=== PATIENT | female | born 1960 | race Caucasian/White ===

== ENCOUNTER 2016-08-15 09:46 | Day surgery (SDC) | payer OTHER ==
[~2016-08-15] VITALS: Ht 165.1 cm; Wt 50.9 kg
[2016-08-15] VITALS (8 sets, daily range): BP systolic 129–180; BP diastolic 63–96
[~2016-08-15 09:46] MED LIST: ACLI400A IH; AGM875T PO; AMOX-358 PO; ASP81CT; ASPI-983 PO; BSP5T PO; BUSP5TAB59 PO; DEXL60CA PO; ENLP2.5T; EST.625T; FLUT12AE4 IH; GABA-486 PO; GBPN100C PO; HYDR-3454 PO; HYDR-3812 PO; HYDR-3857 PO; IBP200T; INSASP10V; INSASP10V SQ; INSU100C4; INSU100C4 SQ; INSU100I29 SQ; INSU100V16 SQ; INSU100V5 SQ; INSU100V8; LEVO175T3 PO; LEVO175T5 PO; LEVO750T6 PO; LEVOTHYROXINE 0.15MG; LEVOTHYROXINE 175 MCG PO; METO-270 PO; METO5TAB79 PO; MUPI22OI2 TP; NITR100C3 PO; ONDA-42 PO; PARO20TA57 PO; PARO40TA3 PO; POTASSIUM 99MG; RT-ADVAIR1 IH; RT-ALBUINH IH; SCR1T PO; SENNA 8.6 MG; VENL50TA; VNL75CCR
--- OUTSIDE RECORDS SUMMARY | 2016-08-15 09:50 | XMS REPORT | Continuity of Care Document ---
Author Author [facility] Organization [facility] Address Unknown Phone Unavailable Care Team Providers Care Electrical Inspector Name Role Phone PILLO FRANCOIS MD PCP Insurance Providers Payer Name Policy Number Subscriber Name Relationship [employer] [facility] [id number] Luz MarinahungTiffany Seth 18 Self / Same As Patient Advance Directives Directive Response Recorded Date/Time Advance Directives No 05/02/14 11:15pm Health Care Power of Behavioral Psychologist No 05/02/14 11:15pm Organ Donor Yes 05/02/14 11:15pm Resuscitation Status Full Code 05/02/14 11:15pm Chief Complaint and Reason for Visit Chief Complaint ABSCESS TO L BUTTOCKS WITH FEVR;LEUKOCYTOSIS Reason for Visit Abscess Problems Medical Problems Problem Onset Date Status Cough Unknown Active Abscess Unknown Active Medications Medication Dose Route Sig Days/Qty Instructions Order Date Discontinued Date Status Insulin Glargine 07/10/07 07/19/09 Discontinued Insulin Human Lispro 07/10/07 03/21/12 Discontinued Insulin Human Lispro 07/10/07 03/21/12 Discontinued Insulin Human Lispro 07/10/07 03/21/12 Discontinued Estrogens Conjugated 07/10/07 01/01/14 Discontinued Venlafaxine HCl 07/10/07 07/19/09 Discontinued [Levothyroxine 0.15MG] 07/10/07 03/21/12 Discontinued Enalapril Maleate 07/10/07 01/01/14 Discontinued Aspirin 07/10/07 01/01/14 Discontinued [Potassium 99MG] 07/10/07 01/01/14 Discontinued Ibuprofen 07/10/07 07/19/09 Discontinued Insulin Glargine 07/19/09 03/21/12 Discontinued Venlafaxine HCl 07/19/09 01/01/14 Discontinued Nitrofurantoin Macrocrystals 100 Mg PO TWICE A DAY 5 Days 02/20/1220/06 Discontinued [Levothroxin 175 Mcg] PO DAILY 03/21/12 05/02/14 Discontinued Hydrocodone Bit/Acetaminophen 1 Each PO NEEDED 03/21/12 01/01/14 Discontinued Insulin Human Lispro 10 Units SQ THREE TIMES A DAY BEFORE MEALS ADDITIONAL SLIDING SCALE IF NEEDED 03/21/12 Active Insulin Glargine 20 Units SQ TWICE A DAY 03/21/12 Active [Senna 8.6MG 2 ] 03/21/12 01/01/14 Discontinued Sucralfate 2 Tsp PO FOUR TIMES DAILY 03/22/12 01/01/14 Discontinued Metoclopramide HCl 1 Each PO QID PRN 03/22/12 01/01/14 Discontinued Dexlansoprazole 60 Mg PO 03/22/12 01/01/14 Discontinued Paroxetine Hcl 20 Mg PO DAILY 01/01/14 Active Buspirone HCl 5 Mg PO TWICE A DAY 90 Qty 01/01/14 Active Fluticasone/Salmeterol 2 Puff IH BID@08,20 1 Qty 01/03/14 Active Gabapentin 100 Mg PO BEDTIME 30 Qty 01/03/14 Active Levothyroxine Sodium 175 Mcg PO DAILY 05/02/14 Active Aclidinium [place] 400 Mcg IH TWICE A DAY 05/02/14 Active Albuterol Sulfate 1 Puff IH NEEDED PRN SHORTNESS OF BREATH Active Levofloxacin Unknown Dose PO 05/02/14 05/04/14 Discontinued Mupirocin 22 Gm TP 05/02/14 Active Ondansetron Hcl 4 Mg PO EVERY 4HRS PRN 05/02/14 Active Amoxicillin/Clavulanate K 1 Tab PO TWICE A DAY 28 Qty 05/04/14 Active Social History Social History Problem Response Recorded Date/Time Alcohol Use Denies Use 05/02/2014 11:15pm Recreational Drug Use No 05/02/2014 11:15pm Recent Foreign Travel No 12/31/2013 11:34pm Recent Infectious Disease Exposure No 12/31/2013 11:34pm Hospitalization with Isolation Denies 01/15/2014 10:46am Sexually Transmitted Disease No 05/02/2014 11:15pm HIV/AIDS No 05/02/2014 11:15pm Smoking Status Current Everyday Smoker 05/02/2014 11:15pm Do you dip or chew tobacco? No 05/02/2014 11:15pm Query Response Start Date Stop Date Smoking Status Current Everyday Smoker Hospital Discharge Instructions No hospital discharge instructions. Plan of Care Discharge Date 05/04/14 11:35am Disposition 01 HOME, SELF-CARE Instructions/Education Provided ABSCESS Forms Provided PDI Medical Prescriptions See Medications Section Referrals PILLO FRANCOIS MD (Unspecified) 05/11/14 Address: [address], [place] [id number] ILA DAVALOS MD (Unspecified) 05/11/14 Address: [address] [place] [id number] Functional Status Query Response Date Recorded Patient Orientation Person Place Time Situation Eyes Open May 04, 2014 12:25pm Comprehension Ability Understands Concepts May 03, 2014 8:00pm Allergies, Adverse Reactions, Alerts Allergen Type Severity Reaction Status Last Updated No Known Drug Allergies Active 07/10/07 Immunizations Name Given Type Date of Pneumonia Vaccine 04/02/09 Historical Date of Influenza Vaccine 04/07/14 Historical Hepatitis A No Historical Hepatitis B No Historical Tetanus Booster (TDap) Unknown Historical Vital Signs Acute Vital Signs Vital Response Date/Time Temperature (Fahrenheit) 97.1 degrees F (97.6 - 99.5) Temperature (Calculated Celsius) 36.80598 degrees C (36.4 - 37.5) Temperature Source Tympanic Pulse Rate (adult) 104 bpm (60 - 90) Respiratory Rate 22 bpm (12 - 24) O2 Sat by Pulse Oximetry 98 % (88 - 100) Blood Pressure 104/57 mm Hg Pain Pain Intensity 5 Height (Feet) 5 feet Height (Inches) 5.00 inches Height (Calculated Centimeters) 165.906173 cm Weight (Pounds) 114 pounds Weight (Ounces) 2.0 oz Weight (Calculated Grams) 77834.230 gm Weight (Calculated Kilograms) 51.325194 kilograms Calculated BMI 18.97 Results Test Source Date Result Interp. Ref. Range Comments Activated Partial Thromboplast Time December 31, 2013 7:34pm 22 SEC L 24-35 Alanine Aminotransferase (ALT/SGPT) January 01, 2014 6:04am 24 U/L L 30-65 Albumin January 01, 2014 6:04am 3.0 G/DL L 3.4-5.0 Alkaline Phosphatase January 01, 2014 6:04am 146 U/L H 50-136 Scar Test December 31, 2013 9:25pm YES-POS - Has specimen been collected /obtained? YPuncture site: Rrad Scar's Test: POSITIVE Temperature: 98.6 Room Air: Y Liters of O2: 0 Arterial Blood Base Excess December 31, 2013 9:25pm -19.1 MMOL/L L -2.5-2.5 Has specimen been collected/obtained? YPuncture site: Rrad Scar's Test: POSITIVE Temperature: 98.6 Room Air: Y Liters of O2: 0 Arterial Blood HCO3 December 31, 2013 9:25pm 7 MMOL/L PL 23-27 RESULTS CALLED TO MUNIRA AT 2138. RESULTS READ BACK: YES[g LABRB]. Arterial Blood Oxygen Saturation December 31, 2013 9:25pm 98 % N 94-100 Has specimen been collected/obtained? YPuncture site: Rrad Scar's Test: POSITIVE Temperature: 98.6 Room Air: Y Liters of O2: 0 Arterial Blood Partial Pressure CO2 December 31, 2013 9:25pm 19 MMHG L 35- 45 Has specimen been collected/obtained? YPuncture site: Rrad Scar's Test: POSITIVE Temperature: 98.6 Room Air: Y Liters of O2: 0 Arterial Blood Partial Pressure O2 December 31, 2013 9:25pm 112 MMHG H 79- 93 Has specimen been collected/obtained? YPuncture site: Rrad Scar's Test: POSITIVE Temperature: 98.6 Room Air: Y Liters of O2: 0 Arterial Blood Total CO2 December 31, 2013 9:25pm 7.7 MMOL/L PL 21.0-31.0 RESULTS CALLED TO MUNIRA AT 2138. RESULTS READ BACK: YES[g LABRB]. Arterial Blood pH December 31, 2013 9:25pm 7.18 L 7.37-7.43 Has specimen been collected/obtained? YPuncture site: Rrad Scar's Test: POSITIVE Temperature: 98.6 Room Air: Y Liters of O2: 0 Aspartate Amino Transf (AST/SGOT) January 01, 2014 6:04am 12 U/L L 15-37 BUN/Creatinine Ratio January 02, 2014 5:55am 13 - Band Neutrophils December 31, 2013 7:34pm 0 % - Basophils # (Auto) January 02, 2014 6:32am 0.1 10^3/uL N 0.0-0.1 Basophils % (Manual) December 31, 2013 7:34pm 1 % - Basophils (%) (Auto) January 02, 2014 6:32am 1 % N 0-10 Blood Gas Inspired Oxygen December 31, 2013 9:25pm RA - Has specimen been collected/obtained? YPuncture site: Rrad Scar's Test: POSITIVE Temperature: 98.6 Room Air: Y Liters of O2: 0 Blood Gas Patient Temperature December 31, 2013 9:25pm 98.6 - Has specimen been collected/obtained? YPuncture site: Rrad Scar's Test: POSITIVE Temperature: 98.6 Room Air: Y Liters of O2: 0 Blood Gas Puncture Site December 31, 2013 9:25pm R RAD - Has specimen been collected/obtained? YPuncture site: Rrad Scar's Test: POSITIVE Temperature: 98.6 Room Air: Y Liters of O2: 0 Blood Gas Ventilator Setting December 31, 2013 9:25pm NO - Has specimen been collected/obtained? YPuncture site: Rrad Scar's Test: POSITIVE Temperature: 98.6 Room Air: Y Liters of O2: 0 Blood Urea Nitrogen January 02, 2014 5:55am 9 MG/DL N 7-18 C-Peptide January 01, 2014 11:30am <0.05 NG/ML L - Calcium Level January 02, 2014 5:55am 8.3 MG/DL L 8.5-10.1 Carbon Dioxide Level January 02, 2014 5:55am 25 MMOL/L N 21-32 Chloride Level January 02, 2014 5:55am 107 MMOL/L N 101-110 Creatine Kinase MB December 31, 2013 7:34pm 1.2 NG/ML N 0.0-3.6 Creatinine January 02, 2014 5:55am 0.7 MG/DL N 0.6-1.3 Eosinophils # (Auto) January 02, 2014 6:32am 0.3 10^3/uL N 0.0-0.3 Eosinophils % (Manual) December 31, 2013 7:34pm 2 % - Eosinophils (%) (Auto) January 02, 2014 6:32am 3 % N 0-10 Glucose Level January 02, 2014 5:55am 47 MG/DL PL 74-106 RESULTS CALLED TO UKRAINIAN AT 0620. RESULTS READ BACK:YES. Hematocrit January 02, 2014 6:32am 39 % N 35-52 Hemoglobin January 02, 2014 6:32am 13.4 G/DL N 11.5-16.0 Lipase July 19, 2009 6:20pm 222 U/L N 114-286 Lymphocytes # (Auto) January 02, 2014 6:32am 2.5 X 10^3 N 1.0-4.0 Lymphocytes % (Manual) December 31, 2013 7:34pm 13 % - Lymphocytes (%) (Auto) January 02, 2014 6:32am 30 % N 12-44 Magnesium Level January 02, 2014 5:55am 1.9 MG/DL N 1.8-2.4 Mean Corpuscular Hemoglobin January 02, 2014 6:32am 30 PG N 25-34 Mean Corpuscular Hemoglobin Concent January 02, 2014 6:32am 34 G/DL N 32- 36 Mean Corpuscular Volume January 02, 2014 6:32am 87 FL N 80-99 Mean Platelet Volume January 02, 2014 6:32am 8.9 FL N 7.4-10.4 Monocytes # (Auto) January 02, 2014 6:32am 0.6 X 10^3 N 0.0-1.0 Monocytes % (Manual) December 31, 2013 7:34pm 2 % - Monocytes (%) (Auto) January 02, 2014 6:32am 7 % N 0-12 Neutrophils # (Auto) January 02, 2014 6:32am 5.0 X 10^3 N 1.8-7.8 Neutrophils % (Manual) December 31, 2013 7:34pm 80 % - Neutrophils (%) (Auto) January 02, 2014 6:32am 59 % N 42-75 Phosphorus Level January 01, 2014 6:04am 2.2 MG/DL L 2.5-4.9 Platelet Count January 02, 2014 6:32am 317 10^3/uL N 130-400 Potassium Level January 02, 2014 5:55am 3.8 MMOL/L N 3.6-5.0 Prothrombin Time December 31, 2013 7:34pm 12.0 SEC L 12.2-14.7 Reactive Lymphocytes December 31, 2013 7:34pm 2 % - Red Blood Count January 02, 2014 6:32am 4.48 10^6/uL N 4.35-5.85 Red Cell Distribution Width January 02, 2014 6:32am 13.5 % N 10.0-14.5 Sodium Level January 02, 2014 5:55am 141 MMOL/L N 135-145 TSH Miner Testing December 31, 2013 7:34pm 1.46 UIU/ML N 0.34-5.60 Thyroid Stimulating Hormone (TSH) July 19, 2009 6:20pm 18.94 UIU/ML H 0.34-5.60 Total Bilirubin January 01, 2014 6:04am 0.4 MG/DL N 0.0-1.0 Total Creatine Kinase December 31, 2013 7:34pm 36 U/L N 1-159 Total Protein January 01, 2014 6:04am 6.4 G/DL N 6.4-8.2 Troponin I December 31, 2013 7:34pm < 0.30 NG/ML - TEST PERFORMED ON THE [employer] DOCK GUARD [id number]. NORMAL RANGEIS <0.3 NG/ML. THESE RANGES AND METHODOLOGY WERE APPROVED BY DR. ASCENCIO ON 12/24/2013. Ur Tricyclic Antidepressants Screen February 20, 2012 4:09am NEGATIVE - Urine Acetone Level January 01, 2014 11:10am 20 (SMALL) MG/DL - Urine Amphetamines Screen February 20, 2012 4:09am NEGATIVE - Urine Bacteria January 01, 2014 3:20pm TRACE /HPF - Has specimen been collected/obtained? Y Urine Barbiturates Screen February 20, 2012 4:09am NEGATIVE - Urine Benzodiazepines Screen February 20, 2012 4:09am NEGATIVE - Urine Bilirubin January 01, 2014 3:20pm NEGATIVE - Has specimen been collected/obtained? Y Urine Casts January 01, 2014 3:20pm NONE /LPF - Has specimen been collected/obtained? Y Urine Clarity January 01, 2014 3:20pm CLEAR - Has specimen been collected/obtained? Y Urine Cocaine Screen February 20, 2012 4:09am NEGATIVE - Urine Color January 01, 2014 3:20pm YELLOW - Has specimen been collected /obtained? Y Urine Crystals January 01, 2014 3:20pm NONE /LPF - Has specimen been collected/obtained? Y Urine Culture Indicated January 01, 2014 3:20pm NO - Has specimen been collected/obtained? Y Urine Glucose (UA) January 01, 2014 3:20pm NEGATIVE - Has specimen been collected/obtained? Y Urine Ketones January 01, 2014 3:20pm NEGATIVE - Has specimen been collected/obtained? Y Urine Leukocyte Esterase January 01, 2014 3:20pm NEGATIVE - Has specimen been collected/obtained? Y Urine Methamphetamines Screen February 20, 2012 4:09am NEGATIVE - Urine Mucus January 01, 2014 3:20pm NEGATIVE /LPF - Has specimen been collected/obtained? Y Urine Nitrite January 01, 2014 3:20pm NEGATIVE - Has specimen been collected/obtained? Y Urine Opiates Screen February 20, 2012 4:09am NEGATIVE - Urine Phencyclidine Screen February 20, 2012 4:09am NEGATIVE - Urine Propoxyphene Screen February 20, 2012 4:09am NEGATIVE - Urine Protein January 01, 2014 3:20pm 1+ H - Has specimen been collected/ obtained? Y Urine RBC January 01, 2014 3:20pm NONE /HPF - Has specimen been collected/obtained? Y Urine Specific [place] January 01, 2014 3:20pm 1.005 L - Has specimen been collected/obtained? Y Urine Squamous Epithelial Cells January 01, 2014 3:20pm 5-10 /HPF - Has specimen been collected/obtained? Y Urine Urobilinogen January 01, 2014 3:20pm NORMAL MG/DL - Has specimen been collected/obtained? Y Urine WBC January 01, 2014 3:20pm RARE /HPF - Has specimen been collected/obtained? Y Urine pH January 01, 2014 3:20pm 6.5 - Has specimen been collected/ obtained? Y White Blood Count January 02, 2014 6:32am 8.6 10^3/uL N 4.3-11.0 Glucometer January 03, 2014 11:33am 194 MG/DL H 70-110 Lab Scanned Report January 30, 2012 11:33am LAB Reports [id number] - Estimat Glomerular Filtration Rate January 02, 2014 5:55am > 60 - GFR INTERPRETIVE DATA UNITS FOR ESTIMATED GFR (eGFR): mL/min/1.73 M2 REFERENCE RANGE FOR ESTIMATED GFR (eGFR) eGFR NORMAL eGFR >60 MODERATELY DECREASED eGFR 30-59 SEVERLY DECREASED eGFR 15-29 KIDNEY FAILURE <15 (OR DIALYSIS) Urine Oxycodone Screen February 20, 2012 4:09am NEGATIVE - Blood Morphology Comment December 31, 2013 7:34pm NORMAL - Urine Methadone Screen February 20, 2012 4:09am NEGATIVE - Urine Cannabinoids Screen February 20, 2012 4:09am NEGATIVE - Urine Buprenorphine February 20, 2012 4:09am NEGATIVE - Urine RBC (Auto) January 01, 2014 3:20pm NEGATIVE - Has specimen been collected/obtained? Y INR Comment December 31, 2013 7:34pm 0.9 N 0.8-1.4 INTERPRETIVE DATASUGGESTED THERAPEUTIC RANGE FOR INR'S: VENOUS THROMBOSIS, PULMONARY EMBOLISM, OR PREVENTION OF SYSTEMIC EMBOLISM (EG. IN ATRIAL FIBRILLATION): 2.0 - 3.0 MECHANICAL PROSTHETIC HEART VALVES: 2.5 - 3.5* *NOTE: INR'S UP TO 4.5 MAY BE NECESSARY IN SELECTED GROUPS OF HIGH RISK PATIENTS. [employer] [place] [employer] CONSENSUS CONFERENCE ON ANTITHROMBOTIC THERAPY (2000). MRSA Screen Nasal December 31, 2013 11:00pm MRSA not isolated Urine Culture Urine-Clean Catch February 20, 2012 4:09am Escherichia Coli Procedures Procedure Status Date Provider(s) Incision and drainage completed 05/03/14 ILA DAVALOS MD Encounters Encounter Location Date/Time Discharged Inpatient Via [facility] 05/02/14 9:25pm Recent Diagnosis Abscess
--- OUTSIDE RECORDS SUMMARY | 2016-08-15 09:50 | XMS REPORT | Continuity of Care Document ---
Author Author [facility] Organization [facility] Address Unknown Phone Unavailable Care Team Providers Care Floral Design Teacher Name Role Phone PILLO FRANCOIS MD PCP Insurance Providers Payer Name Policy Number Subscriber Name Relationship [employer] [facility] [id number] Luz MarinahungTiffany Seth 18 Self / Same As Patient Advance Directives Directive Response Recorded Date/Time Advance Directives No 05/02/14 11:15pm Health Care Power of News Cameraman No 05/02/14 11:15pm Organ Donor Yes 05/02/14 [...] 175 Mcg PO DAILY 05/02/14 Active Aclidinium [place] 400 Mcg IH TWICE A DAY 05/02/14 [...] PILLO FRANCOIS MD (Unspecified) 05/11/14 Address: [address], [place] [id number] ILA DAVALOS MD (Unspecified) 05/11/14 Address: [address] [place] [address] [id number] Functional Status Query Response Date Recorded Patient [...] F (97.6 - 99.5) Temperature (Calculated Celsius) 36.33188 degrees C (36.4 - 37.5) Temperature Source Tympanic Pulse Rate (adult) 104 bpm (60 - 90) Respiratory Rate 22 bpm (12 - 24) O2 Sat by Pulse Oximetry 98 % (88 - 100) Blood Pressure 104/57 mm Hg Pain Pain Intensity 5 Height (Feet) 5 feet Height (Inches) 5.00 inches Height (Calculated Centimeters) 165.069513 cm Weight (Pounds) 114 pounds Weight (Ounces) 2.0 oz Weight (Calculated Grams) 49630.230 gm Weight (Calculated Kilograms) 51.700997 kilograms Calculated BMI 18.97 Results Test Source [...] 47 MG/DL PL 74-106 RESULTS CALLED TO UPPER SORBIAN AT 0620. RESULTS READ BACK:YES. Hematocrit January [...] 2014 5:55am 141 MMOL/L N 135-145 TSH [place] Testing December 31, 2013 7:34pm 1.46 UIU/ML [...] NG/ML - TEST PERFORMED ON THE [employer]EL[employer] DRAWING CHECKER [id number]. NORMAL RANGEIS <0.3 NG/ML. THESE RANGES AND [...] Has specimen been collected/obtained? Y Urine Specific [place] January 01, 2014 3:20pm 1.005 L - [...] Report January 30, 2012 11:33am LAB Reports [id number] - Estimat Glomerular Filtration Rate January 02, [...] SELECTED GROUPS OF HIGH RISK PATIENTS. [place] [place] [employer] [employer] CONSENSUS CONFERENCE ON ANTITHROMBOTIC THERAPY (2000). MRSA Screen Nasal December 31, 2013 11:00pm MRSA not isolated Urine Culture Urine-Clean Catch February 20, 2012 4:09am Escherichia Coli Procedures Procedure Status Date Provider(s) Incision and drainage completed 05/03/14 ILA DAVALOS MD Encounters Encounter Location Date/Time Discharged Inpatient Via [facility] 05/02/14 9:25pm Recent Diagnosis Abscess
[2016-08-15] MEDS ORDERED: HEParin (CATH LAB) 2,000 ML IV ONE (10:04)
[2016-08-15] MEDS ORDERED: NS IV 1000 ML 1,000 ML ONE (10:04)
[2016-08-15] MEDS ORDERED: LIDOCAINE 1% INJ 20 ML (XYLOCAINE) VIAL ONE ×2 (10:04→15:05)
[2016-08-15] MEDS ORDERED: NS IV 1000 ML 1,000 ML IV SCH ×2 (10:13→16:00)
[2016-08-15 10:34] LABS: MEAN PLATELET VOLUME 9.8 FL (7.4-10.4); RED BLOOD COUNT 4.79 10^6/uL (4.35-5.85); WHITE BLOOD COUNT 15.2 10^3/uL (4.3-11.0)
[2016-08-15 10:44] LABS: INR 0.8 (0.8-1.4)
[2016-08-15 10:45] LABS: PARTIAL THROMBOPLASTIN TIME < 20 SEC (24-35)
[2016-08-15 10:53] LABS: ALANINE AMINOTRANSFERASE 16 U/L (0-55); ALBUMIN 3.8 G/DL (3.2-4.5); ANION GAP 9 MMOL/L (5-14); ASPARTATE AMINO TRANSFERASE 18 U/L (5-34); BILIRUBIN,TOTAL 0.4 MG/DL (0.1-1.0); BLOOD UREA NITROGEN 22 MG/DL (7-18); BUN/CREATININE RATIO 28; CALCIUM 8.7 MG/DL (8.5-10.1); CARBON DIOXIDE 25 MMOL/L (21-32); CHLORIDE 104 MMOL/L (98-107); CHOLESTEROL 284 MG/DL (< 200); CREATININE SERUM 0.78 MG/DL (0.60-1.30); DIRECT LDL 198 MG/DL (1-129); GFR ESTIMATED > 60; GLUCOSE 78 MG/DL (70-105); POTASSIUM 4.2 MMOL/L (3.6-5.0); SODIUM 138 MMOL/L (135-145); TOTAL PROTEIN 6.8 G/DL (6.4-8.2); TRIGLYCERIDES 106 MG/DL (<150); VLDL CHOLESTEROL 21 MG/DL (5-40)
[2016-08-15] MEDS ORDERED: INSU100V5 SQ (11:18)
[2016-08-15] MEDS ORDERED: INSU100V16 SQ (11:18)
[2016-08-15] MEDS ORDERED: MIDAZOLAM 5 MG/5 ML (VERSED) VIAL ONE (14:18)
[2016-08-15] MEDS ORDERED: fentaNYL INJECTION 100 MCG/2 ML AMP ONE (14:18)
[2016-08-15] MEDS ORDERED: diphenhydrAMINE 50 MG/ML INJ (BENADRYL) ONE (14:19)
--- NOTE | 2016-08-15 14:38 | Cardiac Procedure Note-CS/ASA ---
Pre-Procedure Note Pre-Op Procedure Note H&P Reviewed The H&P was reviewed, patient examined and no changes noted. Date H&P Reviewed: Aug 15, 2016 Time H&P Reviewed: 14:38 Conscious Sedation Pre-Proced Time Reviewed: 14:38 ASA Class: 3 Airway Mallampati Classification: (ute appropriate class) I. II. III, IV Lungs Heart ASA score ASA 1: a normal healthy patient ASA 2: a patient with a mild systemic disease (mid diabetes, controlled hypertension, obesity ASA 3: a patient with a severe systemic disease that limits activity (angina , COPD, prior Myocardial infarction) ASA 4: a patient with an incapacitating disease that is a constant threat to life (CHF, renal failure) ASA 5: a moribund patient not expected to survive 24 hrs. (ruptured aneurysm) ASA 6: a declared brain patient whose organs are being harvested. For emergent operations, add the letter E after the classification Grade 2 Sedation Plan: Analgesia, Amnesia, Plan communicated to team members, Discussed options with patient/fam, Discussed risks with patient/fam Note The patient is an appropriate candidate to undergo the planned procedure, sedation, and anesthesia. The patient immediately re-assessed prior to indication. THOMAS SHAW MD FACP FAC CCDS Aug 15, 2016 14:38
[2016-08-15] MEDS ORDERED: HEParin 1000 UNIT/ML (10ML VIAL) FOR BOLUS ONE (15:09)
[2016-08-15] MEDS ORDERED: ACETAMINOPHEN 325 MG TABLET/CAPLET (TYLENOL) PO PRN (16:00)
[2016-08-15] MEDS ORDERED: PATIENT MAY USE OWN MEDS, ALL PO SCH (16:00)
[2016-08-15] MEDS ORDERED: CLOPIDOGREL 300 MG (PLAVIX) TABLET PO ONE (16:02)
[2016-08-15] MEDS ORDERED: ASPIRIN 81 MG CHEW (CHILDREN'S ASA) ONE (16:03)
[2016-08-15] MEDS ORDERED: inSUlin ASPART (NovoLOG) 1 UNIT/0.01 ML (CHARGE PER UNIT) SQ SCH (17:00)
[2016-08-15] MEDS ORDERED: CATHETER FLUSH 10 ML SYR IV PRN (19:00)
[2016-08-15] MEDS ORDERED: HYDROcodone/APAP 5 MG/325 MG (LORTAB) TAB PO PRN (19:15)
[2016-08-15] MEDS ORDERED: GABAPENTIN 100 MG (NEURONTIN) CAP PO SCH (21:00)
[2016-08-15] MEDS ORDERED: inSUlin DETERMIR 1000 UNITS/10 ML VIAL (LEVEMIR) SQ SCH (21:00)
[2016-08-15] MEDS: busPIRone 5 MG (BUSPAR) TAB PO SCH (21:07)
[2016-08-16] VITALS: BP 188/91
[2016-08-16 04:00] VITALS: BP 152/86
[2016-08-16 04:33] LABS: MEAN PLATELET VOLUME 9.9 FL (7.4-10.4); RED BLOOD COUNT 4.44 10^6/uL (4.35-5.85); RED CELL DISTRIBUTION WIDTH 13.8 % (10.0-14.5); WHITE BLOOD COUNT 11.9 10^3/uL (4.3-11.0)
[2016-08-16 05:04] LABS: ANION GAP 9 MMOL/L (5-14); BLOOD UREA NITROGEN 13 MG/DL (7-18); BUN/CREATININE RATIO 18; CARBON DIOXIDE 22 MMOL/L (21-32); CHLORIDE 109 MMOL/L (98-107); CREATININE SERUM 0.71 MG/DL (0.60-1.30); GFR ESTIMATED > 60; GLUCOSE 162 MG/DL (70-105); SODIUM 140 MMOL/L (135-145)
[2016-08-16] MEDS ORDERED: LEVOTHYROXINE 175 MCG PO SCH (06:30)
[2016-08-16 07:37] VITALS: BP 144/90
[2016-08-16 07:59] VITALS: BP 91/60
--- NOTE | 2016-08-16 08:47 | Progress Note-Cardiology ---
Cardiology SOAP Progress Note Subjective: Feels well. R leg claudication has resolved. No groin or chest discomfort Objective: I&O/Vital Signs Vital Sign - Last 12Hours 08/15/16 08/15/16 08/15/16 08/16/16 21:00 22:00 23:00 00:00 Pulse 73 75 86 77 Resp 14 11 14 14 B/P 146/82 153/82 180/96 188/91 Pulse Ox 94 96 95 93 O2 Delivery Room Air Room Air Room Air Room Air 08/16/16 08/16/16 08/16/16 08/16/16 00:00 01:00 04:00 07:00 Temp 97.4 97.4 Pulse 80 79 80 Resp 12 B/P 152/86 Pulse Ox 98 O2 Delivery Room Air 08/16/16 07:37 Temp 98.2 Pulse 94 Resp 20 B/P 144/90 Pulse Ox 96 O2 Delivery Room Air Intake and Output 08/16/16 00:00 Intake Total 1000 ml Balance 1000 ml Weight (Pounds): 112 Weight (Ounces): 4.0 Weight (Calculated Kilograms): 50.309972 Groin site without hematoma: Yes Bruising: mild bruising Constitutional: AAO x 3 well-developed well-nourished Respiratory: No accessory muscle use, lungs clear to percussion lungs clear to auscultation Cardiovascular: regular rate-rhythm S1 and S2 systolic murmur (faint FREDRICK at cardiac base) Gastrointestional: No tender, softNo guarding, No rebound, audible bowel sounds Extremities: No clubbing, No cyanosis, No significant edema Neurologic/Psychiatric: oriented x 3 grossly intact power is 5/5 both on sides Skin: No rash on exposed areas, No ulcerations on exposed areas Results/Procedures: Labs Laboratory Tests 08/15/16 10:25: Activated Partial Thromboplast Time < 20L, Alanine Aminotransferase (ALT/SGPT) 16, Albumin 3.8, Alkaline Phosphatase 103, Anion Gap 9, Aspartate Amino Transf ( AST/SGOT) 18, BUN/Creatinine Ratio 28, Blood Urea Nitrogen 22H, Calcium Level 8.7, Carbon Dioxide Level 25, Chloride Level 104, Cholesterol Level 284H, Creatinine 0.78, Estimat Glomerular Filtration Rate > 60, Glucose Level 78, HDL Cholesterol 74H, Hematocrit 43, Hemoglobin 14.4, INR Comment 0.8, LDL Cholesterol Direct 198H, Mean Corpuscular Hemoglobin 30, Mean Corpuscular Hemoglobin Concent 33, Mean Corpuscular Volume 90, Mean Platelet Volume 9.8, Platelet Count 383, Potassium Level 4.2, Prothrombin Time 11.0L, Red Blood Count 4.79, Red Cell Distribution Width 14.0, Sodium Level 138, Total Bilirubin 0.4, Total Protein 6.8, Triglycerides Level 106, VLDL Cholesterol 21, White Blood Count 15.2H 08/15/16 21:05: Glucometer 152H 08/16/16 03:32: Anion Gap 9, BUN/Creatinine Ratio 18, Blood Urea Nitrogen 13, Calcium Level 8.0L , Carbon Dioxide Level 22, Chloride Level 109H, Creatinine 0.71, Estimat Glomerular Filtration Rate > 60, Glucose Level 162H, Hematocrit 40, Hemoglobin 13.3, Mean Corpuscular Hemoglobin 30, Mean Corpuscular Hemoglobin Concent 33, Mean Corpuscular Volume 90, Mean Platelet Volume 9.9, Platelet Count 356, Potassium Level 4.0, Red Blood Count 4.44, Red Cell Distribution Width 13.8, Sodium Level 140, White Blood Count 11.9H Laboratory Tests 08/15/16 10:25 08/16/16 03:32 A/P: Assessment: Cardiac cath of 12-28-15 showed severe MVD, LVEF 60%, elevated LVEDP. CABG x 4 on 12-30-[address] Doherty at [facility]: PAUL to LAD, reverse saphenous vein graft to OM2, sequential to RPDA and reverse saphenous vein graft to diagonal 2. 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 Doherty PAD. S/p 7x60 mm stenting of the R common iliac (post-dilated with an 8 mm balloon) on 08/15/16 that has resulted in resolution of R leg claudication. There is two-vessel runoff in the legs with mod to severe diffuse disease COPD Tobacco use (07/10 PPD) -cessation is advised DM II Plan: * Again advised to quit smoking * I discussed the findings of peripheral angio the interventions of 08/15/16 and showed her the films * I answered questions in detail * Have advised close outpatient f/u for now THOMAS SHAW MD FACP FAC CCDS Aug 16, 2016 08:47
[2016-08-16] MEDS ORDERED: ASPI-999 PO (08:48)
[2016-08-16] MEDS ORDERED: CLOP75TA28 PO (08:48)
[2016-08-16] MEDS ORDERED: ATOR40TA70 PO (08:51)
--- NOTE | 2016-08-16 08:54 | Discharge Inst-Cardiology ---
Discharge Inst-Cardiac Discharge Medications New Medications: Aspirin (Aspirin) 81 Mg Tab.chew 81 MG PO DAILY #90 Ref 3 TAB Atorvastatin Calcium (Atorvastatin Calcium) 40 Mg Tablet 40 MG PO HS #90 Ref 3 TAB Clopidogrel Bisulfate (Clopidogrel) 75 Mg Tablet 75 MG PO DAILY #90 Ref 3 TAB Continued Medications: Buspirone HCl (Buspirone HCl) 5 Mg Tablet 5 MG PO BID Gabapentin (Gabapentin) 100 Mg Capsule 100 MG PO HS Hydrocodone/Acetaminophen (Hydrocodon -Acetaminophen 5-325) 1 Each Tablet 1 TAB PO Q6H PRN PAIN Insulin Aspart (Novolog) 100 Unit/1 Ml Susp 12 UNITS SQ TIDWM ADDITION SLIDING SCALE IF NEEDED Insulin Determir (Levemir) 1,000 Units/10 Ml Soln 11 UNITS SQ BID Levothyroxine Sodium (Levothyroxine Sodium) 175 Mcg Tablet 175 MCG PO DAILY LAST FILLED 07/12/16 #30 Paroxetine HCl (Paroxetine HCl) 40 Mg Tablet 40 MG PO DAILY LAST FILLED 07/12/16 #30 TAB Discontinued Medications: Aspirin (Aspirin EC) 81 Mg Tablet. 81 MG PO DAILY TAB Patient Instructions Patient Instructions: May resume work without restrictions beginning 08/17/16 F/u with Dr Jeffries in 4-5 weeks Activity & Diet Discharge Diet: ADA Diet (1500 kCal ADA) THOMAS JEFFRIES MD FACP FAC CCDS Aug 16, 2016 08:54
--- NOTE | 2016-08-16 08:54 | Discharge Inst-Post CATH ---
Discharge Inst-CATH Post Cardiac Cath D/C Inst CARDIAC CATH DISCHARGE INSTRUCTIONS *Hold Metformin for 48 hours post heart cath. ACTIVITY * Go Home directly and rest. * Limit activity of the leg (or wrist if it was used) for 7 days including aerobics, swimming, jogging, bicycling, etc. * Restrict stair-climbing for 7 days if possible, if not, climb up with your non -cath leg, then bring together on the same step. * Avoid lifting, pushing, pulling or excessive movement of the affected extremity for 7 days. * Customary sexual activity may be resumed after 2 days-use caution not to use a position that strains or causes pain to the affected extremity. * No driving for 24 hours. * NO SMOKING. * Avoid straining for bowel movements for 7 days. * Gentle walking on level ground is allowed. * Returning to work will depend on the type of procedure and the results. Your doctor will discuss this with you. CALL YOUR DOCTOR FOR ANY OF THE FOLLOWING: *If bleeding from the puncture site occurs- Apply gentle pressure to site with clean cloth and call your doctor or EMS. * If a knot or lump forms under the skin, increases in size, or causes pain. * If bruising appears to be worsening or moving further down your leg instead of disappearing. * Temperature above 101 F. CARE OF YOUR GROIN INCISION; * Bruising or purple discoloration of the skin near the puncture site is common. * You may shower only, no bathtub bathing for 5 days. Be careful to avoid slipping as your leg may feel stiff. * If a closure device was used on your femoral artery, please see the attached guide regarding care of the device and your leg. * REMOVE the dressing from your groin the next day after your procedure in the shower. CARE OF YOUR WRIST INCISION; * Bruising or purple discoloration of the skin near the puncture site is common. * You may shower. * DO NOT submerge wrist. * Remove dressing in 24 hours. THOMAS SHAW MD FACP [facility] Aug 16, 2016 08:54
--- NOTE | 2016-08-16 08:57 | Cardiology Discharge Summary ---
Diagnosis/Chief Complaint Date of Admission Date of Discharge Final/Discharge Diagnosis Cardiac cath of 12-28-15 showed severe MVD, LVEF 60%, elevated LVEDP. CABG x [address] on 12-30-[address] Doherty at [facility]: PAUL to LAD, reverse saphenous vein graft to OM2, sequential to RPDA and reverse saphenous vein graft to diagonal 2. 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 Dhoerty PAD. S/p 7x60 mm stenting of the R common iliac (post-dilated with an 8 mm balloon) on 08/15/16 that has resulted in resolution of R leg claudication. There is two-vessel runoff in the legs with mod to severe diffuse disease COPD Tobacco use (/ PPD) -cessation is advised DM II Discharge Summary Procedures Peripheral angio and intervention on 08/15/16 (see report) Hospital Course Pending Labs Laboratory Tests 08/16/16 03:32: Anion Gap 9, BUN/Creatinine Ratio 18, Blood Urea Nitrogen 13, Calcium Level 8.0 , Carbon Dioxide Level 22, Chloride Level 109, Creatinine 0.71, Estimat Glomerular Filtration Rate > 60, Glucose Level 162, Hematocrit 40, Hemoglobin 13.3, Mean Corpuscular Hemoglobin 30, Mean Corpuscular Hemoglobin Concent 33, Mean Corpuscular Volume 90, Mean Platelet Volume 9.9, Platelet Count 356, Potassium Level 4.0, Red Blood Count 4.44, Red Cell Distribution Width 13.8, Sodium Level 140, White Blood Count 11.9 Discussion & Recommendations Home Medications Reviewed patient Home Medication Reconciliation Form Discharge Home Medications: Reviewed and agree with Discharge Medication list on patient's Discharge Instruction sheet THOMAS SHAW MD FACP [facility] Aug 16, 2016 08:57
[2016-08-16] MEDS ORDERED: CLOPIDOGREL 75 MG (PLAVIX) TABLET PO SCH (09:00)
[2016-08-16] MEDS ORDERED: ASPIRIN E.C. 81 MG (ECOTRIN) TAB PO SCH (09:00)
[2016-08-16] MEDS: busPIRone 5 MG (BUSPAR) TAB PO SCH (09:06)
[2016-08-16 09:30] VITALS: BP 144/90
--- NOTE | 2016-08-16 13:43 | PROCEDURE REPORT ---
PROCEDURE PHYSICIAN: THOMAS SHAW PERIPHERAL ANGIOGRAPHY AND INTERVENTION REPORT: DATE OF PROCEDURE: 08/15/2016 Jessica Yates is a 55-year-old lady with known coronary artery disease and multiple risk factors of peripheral arterial disease. She has a marked right leg claudication. Ankle-brachial indices are 0.42 on the right side and 0.78 on the left side. Peripheral angiography was recommended. An informed consent was obtained for peripheral angiography and possible ad hoc peripheral arterial intervention. PROCEDURE: She was brought to the cardiac catheterization laboratory in a fasting state. Both groins were prepared prepped and draped in usual sterile fashion. 1% lidocaine was used for local anesthesia. Modified Seldinger technique was used to advance a 5-Venezuelan sheath in the right femoral artery. We used a 5-[place]an pigtail catheter placed at the level of L1 to carry out abdominal aortic angiography. We pulled the pigtail catheter down to just proximal to the level aortoiliac bifurcation and bilateral leg artery angiography was performed with runoff down to the level of the ankles. PERCUTANEOUS INTERVENTION TO THE RIGHT COMMON ILIAC ARTERY: Following completion of the diagnostic procedure, we carried out percutaneous intervention of the right common iliac artery, which had 95% stenosis in its proximal portion. We used the Seldinger technique to advance a 6-[place]enezuelan sheath into the right femoral artery and then used the [email or web address] wire to cross the severe lesion in the right common iliac artery. From the left sheet, we introduced a 5-[place]an crossover catheter was used to provide angiography and guidance for balloon and stent placement. We first carried out balloon angioplasty using an Franklin 35 balloon (6.0 x 60). This reduced the stenosis to approximately 60% residual. The balloon was removed and we advanced Omnilink Elite 7.0 x 15 mm stent. This was carefully positioned such that it extends from the midportion of the common iliac artery to just distal to the ostium of the right common iliac artery. This was deployed at 12 atmospheres. We then carried out post dilation of the proximal and midportions of the stent using a Franklin 35 8.0 x 40 mm balloon. Subsequent angiography revealed 0% residual stenosis at the previous site of 95% stenosis and there was brisk flow down the right leg. She tolerated the procedure well. At the end of the procedure, angiography of both femoral arteries was carried out through the sheath and Mynx was used to achieve hemostasis. She tolerated the procedure well. She received 5000 units of intravenous heparin at the beginning of the interventional procedure. ABDOMINAL AORTIC ANGIOGRAPHY: Abdominal aortic angiography does not indicate any abdominal aortic aneurysm or stenosis. Renal arteries are identified and do not exhibit significant disease. Mesenteric vessels, to the extent seen, do not exhibit significant disease. BILATERAL LEG ARTERY ANGIOGRAPHY: Bilateral leg artery angiography was performed. There was 95% proximal stenosis in the right common iliac artery. On the right side, there also appears to be considerable disease of the right internal iliac artery. The common femoral and superficial femoral and deep femoral and popliteal arteries on the right side are intact. The posterior tibial appears to be occluded on the right side and the dorsalis pedis and peroneal arteries have diffuse, moderate to severe disease. There appears to be a 2 vessel runoff in the right leg. On the left side, the common iliac does not exhibit significant disease. The external iliac and does not exhibit significant disease. The left internal iliac does have severe ostial disease. The left common femoral, deep femoral and popliteal arteries do not exhibit significant disease. The right posterior tibial is occluded in its proximal portion and reconstitutes the collaterals in its distal portion. The dorsalis pedis and peroneal arteries on the right side have moderate to severe diffuse . CONCLUSION: Peripheral arterial disease, primarily consisting of 95% proximal stenosis of the right common iliac artery to which successful stenting was carried out with Omnilink 7.0 x 59 mm stent, which was postdilated with an 8 mm balloon and which reduced the stenosis to 0% residual. There is a 2 vessel runoff in both legs and there is moderate to severe disease of the distal leg arteries on both sides. Job ID: [id number] Dictated Date: 08/15/2016 15:53:29 Discount Clerk Date: 08/16/2016 13:24:48 / rosalinda
== END 2016-08-16 09:30 | disposition home or self-care (01) ==
LOC: CATH 09:46 → ICU 16:25 → CATH 08-16 09:30
PROVIDERS: ATTEND Nurse Practitioner Family
DX: I70.213 Atherosclerosis of native arteries of extremities with intermittent claudication, bilateral legs (principal); I70.92 Chronic total occlusion of artery of the extremities; I25.10 Atherosclerotic heart disease of native coronary artery without angina pectoris; J44.9 Chronic obstructive pulmonary disease, unspecified; Z95.1 Presence of aortocoronary bypass graft; E11.9 Type 2 diabetes mellitus without complications; Z79.4 Long term (current) use of insulin; Z72.0 Tobacco use; Z79.899 Other long term (current) drug therapy
CPT/HCPCS: 36200; 36415; 37221; 75625; 75716; 80048; 80053; 80061; 82962; 85027; 85610; 85730; 87081; 93005

== ENCOUNTER 2016-12-01 19:25 | Emergency (ER) | payer OTHER ==
[~2016-12-01] VITALS: Ht 165.1 cm; Wt 55.3 kg
[~2016-12-01 19:25] MED LIST changes: +ASPI-999 PO; +ATOR40TA70 PO; +CLOP75TA28 PO
[2016-12-01 19:27] VITALS: BP 139/83
--- NOTE | 2016-12-01 19:57 | ED Neurological Problem ---
General Chief Complaint: Neuro-Stroke Like Symptoms Stated Complaint: SLURRED SPEECH/EYE SWELLING Nursing Triage Note: Pt presents to ED with c/o stroke like symptoms that began on Sunday. Nursing Sepsis Screen: No Definite Risk Source: patient Exam Limitations: no limitations History of Present Illness Time seen by provider: 19:24 Initial Comments This 56-year-old woman presents to the emergency room with complaints of strokelike symptoms described as difficulty speaking and numbness and weakness of the right lower face. She also has some difficulty completely closing the right eye. Symptoms started on Sunday, 4 days ago. She has been recently treated for sinus symptoms and possible bronchitis (cough). Because of her history of vascular disease, she became concerned about possible stroke. She denies any other focal neurologic symptoms. Symptoms have not been progressive over the past 4 days. She takes Plavix but is not anticoagulated. She is presently on Cefdinir. Allergies and Home Medications Allergies Coded Allergies: No Known Drug Allergies (Verified , 07/10/07) Home Medications Acyclovir 400 Mg Tablet, 400 MG PO 5XD, #35 Prescribed by: JESSICA JONES on 12/01/162103 Aspirin 81 Mg Tab.chew, 81 MG PO DAILY, #90 Ref 3 Prescribed by: THOMAS SHAW on 08/16/1648 Atorvastatin Calcium 40 Mg Tablet, 40 MG PO HS, #90 Ref 3 Prescribed by: THOMAS SHAW on 08/16/16 0851 Buspirone HCl 5 Mg Tablet, 5 MG PO BID, (Reported) Clopidogrel Bisulfate 75 Mg Tablet, 75 MG PO DAILY, #90 Ref 3 Prescribed by: THOMAS SHAW on 08/16/1648 Fluticasone Propionate 9.9 Ml [place].susp, 2 SPRAY NSEACH DAILY, #1 Prescribed by: JESSICA JONES on 12/01/162103 Gabapentin 100 Mg Capsule, 100 MG PO HS, (Reported) Hydrocodone/Acetaminophen 1 Each Tablet, 1 TAB PO Q6H PRN for PAIN, (Reported) Insulin Aspart 100 Unit/1 Ml Susp, 12 UNITS SQ TIDWM, (Reported) ADDITION SLIDING SCALE IF NEEDED Insulin Determir 1,000 Units/10 Ml Soln, 11 UNITS SQ BID, (Reported) Levofloxacin 750 Mg Tablet, 750 MG PO DAILY, #4 Prescribed by: JESSICA JONES on 12/01/162103 Levothyroxine Sodium 175 Mcg Tablet, 175 MCG PO DAILY, (Reported) LAST FILLED 07/12/16 #30 Paroxetine HCl 40 Mg Tablet, 40 MG PO DAILY, (Reported) LAST FILLED 07/12/16 #30 Constitutional: no symptoms reported Eyes: See HPI Ears, Nose, Mouth, Throat: see HPI Respiratory: see HPI Cardiovascular: no symptoms reported Gastrointestinal: no symptoms reported Genitourinary: no symptoms reported Musculoskeletal: no symptoms reported Skin: no symptoms reported Psychiatric/Neurological: See HPI Endocrine: No Symptoms Reported Hematologic/Lymphatic: No Symptoms Reported Past Rofahib-Imhyed-Dlmdcd Hx Patient Social History Alcohol Use: Denies Use Recreational Drug Use: No Smoking Status: Current Everyday Smoker Type Used: Cigarettes 2nd Hand Smoke Exposure: No Recent Foreign Travel: No Contact w/Someone Who Travel: No Recent Infectious Disease Expo: No Recent Hopitalizations: Yes Immunizations Up To Date Tetanus Booster (TDap): Unknown PED Vaccines UTD: No Date of Pneumonia Vaccine: Apr 02, 2013 Date of Influenza Vaccine: Apr 07, 2016 Surgeries HX Surgeries: Yes Surgeries: CABG, 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, Thyroidectomy, Vascular Surgery (right lower extremity stent, right CEA) Respiratory Hx Respiratory Disorders: Yes Respiratory Disorders: COPD Cardiovascular Hx Cardiac Disorders: Yes Cardiac Disorders: Coronary Artery Disease (status post CABG) Neurological Hx Neurological Disorders: Yes Neurological Disorders: Neuropathy Reproductive System Hx Reproductive Disorders: No Sexually Transmitted Disease: No HIV/AIDS: No Female Reproductive Disorders: Denies Genitourinary Hx Genitourinary Disorders: No Gastrointestinal Hx Gastrointestinal Disorders: Yes Gastrointestinal Disorders: Gastroesophageal Reflux, Chronic Constipation Musculoskeletal Hx Musculoskeletal Disorders: Yes (chronic neck pain) Musculoskeletal Disorders: Degenerate Disk Disease Endocrine Hx Endocrine Disorders: Yes Endocrine Disorders: Diabetes, Insulin dep, Hypothyroidsim HEENT HX ENT Disorders: No Loss of Vision: Denies Hearing Impairment: Denies Cancer Hx Cancer: No Psychosocial Hx Psychiatric Problems: Yes Behavioral Health Disorders: Anxiety, Depression Integumentary HX Skin/Integumentary Disorder: Yes (PREVIOUS ABCESSES) Blood Transfusions Hx Blood Disorders: No Adverse Reaction to a Blood Tr: No (has never had a transfusion) Family Medical History Family Medial History: Cancer G8 BROTHER, Onset:Unknown G8 BROTHER, Onset:Unknown Cancer of colon G8 BROTHER, Onset:Unknown Chest pain 19 MOTHER, Onset:Unknown Congestive heart failure 19 FATHER, Onset:60 years & older Family history: Alzheimer's disease 19 MOTHER, Onset:50's - 60 Family history: Arthritis 19 MOTHER, Onset:Unknown Family history: Asthma 19 FATHER, Onset:Unknown Family history: Cardiovascular disease 19 MOTHER, Onset:50's - 60 Family history: Coronary thrombosis 19 MOTHER, Onset:Unknown Family history: Diabetes mellitus 19 MOTHER, Onset:Unknown Family history: Hypertension 19 MOTHER, Onset:50's - 60 Family history: Thyroid disorder 19 MOTHER, Onset:50's - 60 Heart disease 19 MOTHER, Onset:50's - 60 Human immunodeficiency virus (HIV) seropositivity G8 BROTHER, Onset:40's - 50 Myocardial infarction 19 MOTHER, Onset:50's - 60 No Family History of: Abdominal aortic aneurysm Dar[place]'s disease Alcoholism Aphasia Cataract Congenital heart disease Cystic fibrosis Dementia Dysphagia Family history: Allergy Family history: Breast disease Family history: Gastrointestinal disease Family history: Glaucoma Family history: Osteoporosis Headache Hearing loss Hereditary disease History of - anemia History of - disorder History of - respiratory disease History of drug abuse Hypercholesterolemia Infertile Kidney disease Malignant neoplasm of lung Parkinson's disease Prostate cancer Psychotic disorder Seizure disorder Stroke Tuberculosis Visual impairment Physical Exam Vital Signs Vital Sign - Last 12Hours 12/01/16 19:25 Temp 97.0 Pulse 118 Resp 18 B/P (MAP) 139/83 Pulse Ox 99 O2 Delivery Room Air Capillary Refill : Less Than 3 Seconds General Appearance: WD/WN, no apparent distress HEENT: PERRL/EOMI, normal ENT inspection, TMs normal, pharynx normal, TM abnormal (R) (right TM obscured by cerumen), other Neck: normal inspection, No carotid bruit Respiratory: lungs clear, normal breath sounds, no respiratory distress, no accessory muscle use Cardiovascular: regular rate, rhythm, no edema, no murmur Gastrointestinal: normal bowel sounds, non tender, soft Back: normal inspection Extremities: normal inspection, no pedal edema Neurologic/Psychiatric: no motor/sensory deficits, alert, normal mood/affect, oriented x 3, other (smile asymmetry on the right) Crainal Nerves: normal hearing, normal speech, PERRL Coordination/Gait: normal finger to nose, normal gait Motor/Sensory: no motor deficit, no sensory deficit Skin: normal color, warm/dry Progress/Results/Core Measures Results/Orders Lab Results Laboratory Tests Test 12/01/16 20:00 12/01/16 20:05 12/01/16 21:15 Range/Units White Blood Count 16.5 H 4.3-11.0 10^3/uL Red Blood Count 4.16 L 4.35-5.85 10^6/uL Hemoglobin 12.3 11.5-16.0 G/DL Hematocrit 38 35-52 % Mean Corpuscular Volume 90 80-99 FL Mean Corpuscular Hemoglobin 30 25-34 PG Mean Corpuscular Hemoglobin Concent 33 32-36 G/DL Red Cell Distribution Width 13.7 10.0-14.5 % Platelet Count 488 H 130-400 10^3/uL Mean Platelet Volume 9.4 7.4-10.4 FL Neutrophils (%) (Auto) 61 42-75 % Lymphocytes (%) (Auto) 26 12-44 % Monocytes (%) (Auto) 9 0-12 % Eosinophils (%) (Auto) 3 0-10 % Basophils (%) (Auto) 1 0-10 % Neutrophils # (Auto) 10.0 H 1.8-7.8 X 10^3 Lymphocytes # (Auto) 4.4 H 1.0-4.0 X 10^3 Monocytes # (Auto) 1.4 H 0.0-1.0 X 10^3 Eosinophils # (Auto) 0.5 H 0.0-0.3 10^3/uL Basophils # (Auto) 0.2 H 0.0-0.1 10^3/uL Neutrophils % (Manual) 54 % Lymphocytes % (Manual) 34 % Monocytes % (Manual) 6 % Eosinophils % (Manual) 1 % Basophils % (Manual) 2 % Band Neutrophils 3 % Blood Morphology Comment NORMAL Prothrombin Time 13.0 12.2-14.7 SEC INR Comment 1.0 0.8-1.4 Activated Partial Thromboplast Time 26 24-35 SEC Sodium Level 141 135-145 MMOL/L Potassium Level 4.4 3.6-5.0 MMOL/L Chloride Level 106 98-107 MMOL/L Carbon Dioxide Level 23 21-32 MMOL/L Anion Gap 12 5-14 MMOL/L Blood Urea Nitrogen 34 H 7-18 MG/DL Creatinine 0.97 0.60-1.30 MG/DL Estimat Glomerular Filtration Rate 60 BUN/Creatinine Ratio 35 Glucose Level 56 *L 70-105 MG/DL Calcium Level 9.0 8.5-10.1 MG/DL Magnesium Level 2.5 H 1.8-2.4 MG/DL Total Bilirubin 0.1 0.1-1.0 MG/DL Aspartate Amino Transf (AST/SGOT) 13 5-34 U/L Alanine Aminotransferase (ALT/SGPT) 10 0-55 U/L Alkaline Phosphatase 129 40-136 U/L C-Reactive Protein High Sensitivity 0.14 0.00-0.50 MG/DL Total Protein 6.6 6.4-8.2 G/DL Albumin 3.3 3.2-4.5 G/DL Thyroid Stimulating Hormone (TSH) 1.96 0.35-4.94 UIU/ML Free Thyroxine 1.21 0.70-1.48 NG/DL Urine Color YELLOW Urine Clarity SLIGHTLY CLOUDY Urine pH 5 5-9 Urine Specific [place] 1.020 1.016-1.022 Urine Protein 4+ NEGATIVE Urine Glucose (UA) NEGATIVE NEGATIVE Urine Ketones 1+ H NEGATIVE Urine Nitrite NEGATIVE NEGATIVE Urine Bilirubin NEGATIVE NEGATIVE Urine Urobilinogen 1 NORMAL MG/DL Urine Leukocyte Esterase 2+ H NEGATIVE Urine RBC (Auto) 1+ H NEGATIVE Urine RBC 2-5 H /HPF Urine WBC 2-5 /HPF Urine Squamous Epithelial Cells 5-10 /HPF Urine Crystals NONE /LPF Urine Bacteria FEW H /HPF Urine Casts NONE /LPF Urine Mucus NEGATIVE /LPF Urine Culture Indicated NO Glucometer 81 70-110 MG/DL My Orders Orders - JESSICA SALGADO MD Cbc With Automated Diff (12/01/16 19:38) Comprehensive Metabolic Panel (12/01/16 19:38) Magnesium (12/01/16 19:38) Protime With Inr (12/01/16 19:38) Partial Thromboplastin Time (12/01/16 19:38) Thyroid Stimulating Hormone (12/01/16 19:38) Ua Culture If Indicated (12/01/16 19:38) Ct Head Wo-R/O Stroke (12/01/16 19:38) Accucheck Stat ONCE (12/01/16 19:38) Saline Lock/Iv-Start (12/01/16 19:38) Ekg Tracing (12/01/16 19:38) Monitor-Rhythm Ecg Trace Only (12/01/16 19:38) Chest 1 View, Ap/Pa Only (12/01/16 19:38) Free T4 (Free Thyroxine) (12/01/16 19:40) Manual Differential (12/01/16 20:00) Ns Iv 500 Ml (Sodium Chloride 0.9%) (12/01/16 20:23) Urine Culture (12/01/16 20:31) Hs C Reactive Protein (12/01/16 20:33) Accucheck Stat ONCE (12/01/16 20:44) Acyclovir Capsule/Tablet (Zovirax Caps (12/01/16 21:00) Levofloxacin Tablet (Levaquin Tablet) (12/01/16 21:00) Medications Given in ED Current Medications Medications Dose Ordered Sig/Jante Route Start Time Stop Time Status Last Admin Dose Admin Acyclovir 400 mg ONCE ONCE PO 12/01/16 21:00 12/01/16 21:01 DC 12/01/16 21:19 400 MG Levofloxacin 750 mg ONCE ONCE PO 12/01/16 21:00 12/01/16 21:01 DC 12/01/16 21:19 750 MG Sodium Chloride 500 ml @ 0 mls/hr Q0M ONCE IV 12/01/16 20:23 12/01/16 20:25 DC 12/01/16 20:39 0 MLS/HR Vital Signs/I&O Vital Sign - Last 12Hours 12/01/16 12/01/16 12/01/16 19:25 19:27 21:29 Temp 97.0 Pulse 118 118 88 Resp 18 18 18 B/P (MAP) 139/83 139/83 Pulse Ox 99 99 98 O2 Delivery Room Air Blood Pressure Mean: 101 Point of Care Testing Finger Stick Blood Glucose: 78 Progress Note #1: Time: 21:00 Progress Note Patient was found to be hypoglycemic on her blood draw. She was asymptomatic other than tachycardia. Heart rate was improving with normal saline 500 mL bolus and correction of blood sugar with eating crackers. Patient has been struggling with sinusitis despite taking Cefdinir. Additional treatment with Levaquin is being prescribed. Her first dose will be received in the emergency room. There was nonspecific opacity in the right lung which could be related to atelectasis versus pneumonia. Levaquin should cover for any additional pulmonary infection as well. Patient's oxygenation was stable. Patient had no wheezes or crackles on exam. Patient was not felt to be truly septic as CRP was negative. Strict return precautions were discussed and close follow-up with Dr. Francois was also discussed. 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 However, forehead is not involved and so stroke cannot be definitively ruled out. CT of the head was negative. Advised patient that her primary care provider may want to follow the CT with an MRI. Blink was slow on the right side which adds to my suspicion for Kennedy's palsy. Steroids were not given as patient is greater than 72 hours into her symptoms and she remarks that blood sugars are very labile when on steroids. Progress Note #2: Progress Note Repeat FSBS was 81 after eating crackers. Patient was returning home to eat dinner. She received oral Levaquin and Acyclovir in the ER. ECG Initial ECG Impression Date: December 01, 2016 Initial ECG Impression Time: 19:40 Initial ECG Rate: 101 Initial ECG Rhythm: S.Tach Initial ECG Impression: Normal Comment Similar to prior. Sinus tachycardia without ST elevation or depression. No abnormal intervals. Possible LVH. Diagnostic Imaging Diagonstic Imaging: CT Plain Films/CT/US/NM/MRI: head Comments CT head viewed by me and report reviewed. See report below: NAME: TIFFANY GRAMAJO [facility] REC#: [id number] PT STATUS: REG ER : 1960 PHYSICIAN: JESSICA SALGADO MD ADMIT DATE: 12/01/16/ER Draft Date of Exam:12/01/16 CT HEAD WO-R/O STROKE Indication: Slurred speech, right-sided facial droop. Comparison: None. Technique: Routine head CT was performed without contrast. Discussion: Moderate mucosal thickening is present within the bilateral maxillary sinuses. No air-fluid level identified. No intracranial hemorrhage, mass, midline shift, or hydrocephalus. The ventricles and sulci are normal size and configuration for age. The visualized orbits, mastoid air cells, and calvarium are unremarkable. Impression: 1. No acute intracranial abnormality. 2. Moderate mucosal thickening within the bilateral maxillary sinuses. Dictated on workstation # [id number] Dict: 12/01/161953 Trans: 12/01/161956 [facility] [id number] Interpreted by: SEB ANDERSON MD Diagonstic Imaging: Xray Plain Films/CT/US/NM/MRI: chest Comments Chest x-ray viewed by me and report reviewed. See report below: NAME: TIFFANY GRAMAJO [facility] REC#: [id number] PT STATUS: REG ER : 1960 PHYSICIAN: JESSICA SALGADO MD ADMIT DATE: 12/01/16/ER Draft Date of Exam:12/01/16 CHEST 1 VIEW, AP/PA ONLY Indication: Right-sided facial droop, slurred speech. Discussion: Single portable upright view of the chest was obtained, multiple comparisons available through 12/11/2013. Stable normal heart size. Median sternotomy is present. Very subtle patchy opacities are present within the right lung base, likely the right middle lobe, atelectasis versus pneumonia. No pleural fluid or pneumothorax. No acute osseous abnormality. Impression: Subtle patchy opacities, likely within the right middle lobe, atelectasis and/or pneumonia. Dictated on workstation # [id number] Dict: 12/01/161957 Trans: 12/01/161999 PJE [id number] Interpreted by: SEB ANDERSON MD Departure Impression Impression: Primary Impression: Weakness on right side of face Additional Impressions: Maxillary sinusitis Qualified Codes: J32.0 - Chronic maxillary sinusitis Leukocytosis Qualified Codes: D72.829 - Elevated white blood cell count, unspecified Hypoglycemia Opacity of lung on imaging study Disposition: 01 HOME, SELF-CARE Condition: Improved Departure-Patient Inst. Decision time for Depature: 21:00 Referrals: PILLO FRANCOIS MD (PCP/Family) Primary Care Physician Patient Instructions: Kennedy's Palsy, Sinusitis in Adults Add. Discharge Instructions: Drink plenty of clear liquids. Complete your Cefdinir as prescribed and add Levaquin as prescribed. I'm also prescribing acyclovir which may be helpful if your facial numbness is due to Kennedy's palsy. I also advise that you start taking Flonase to reduce sinus inflammation. Reduce smoking and work toward quitting as soon as possible. Seek assistance from your primary care provider if necessary. Keep your appointment next week with Dr. Francois and call him Sunday to provide an update. Return to the emergency room promptly if you have any worsening of symptoms over the weekend including fever over 100, worsening numbness or weakness of any part of the body, worsening cough, blood sugars are difficult to control, etc. All discharge instructions reviewed with patient and/or family. Voiced understanding. Scripts Fluticasone Propionate (Flonase Allergy Relief) 9.9 Ml [place].susp 2 SPRAY NSEACH DAILY, #1 SPRAY Prov: JESSICA SALGADO MD 12/01/16 Acyclovir (Acyclovir) 400 Mg Tablet 400 MG PO 5XD, #35 TAB Prov: JESSICA SALGADO MD 12/01/16 Levofloxacin (Levaquin) 750 Mg Tablet 750 MG PO DAILY, #4 TAB Prov: JESSICA SALGADO MD 12/01/16 Copy Copies To 1: PILLO FRANCOIS MD, JOSHUA T MD December 01, 2016 19:57
--- NOTE | 2016-12-01 20:00 | Diagnostic Imaging Report ---
Indication: Right-sided facial droop, slurred speech. Discussion: Single portable upright view of the chest was obtained, multiple comparisons available through 12/11/2013. Stable normal heart size. Median sternotomy is present. Very subtle patchy opacities are present within the right lung base, likely the right middle lobe, atelectasis versus pneumonia. No pleural fluid or pneumothorax. No acute osseous abnormality. Impression: Subtle patchy opacities, likely within the right middle lobe, atelectasis and/or pneumonia. Dictated by: Dictated on workstation # [id number]
[2016-12-01 20:11] LABS: BASOPHILS # (AUTO) 0.2 10^3/uL (0.0-0.1); BASOPHILS % (AUTO) 1 % (0-10); EOSINOPHILS # (AUTO) 0.5 10^3/uL (0.0-0.3); EOSINOPHILS % (AUTO) 3 % (0-10); LYMPHOCYTES # (AUTO) 4.4 X 10^3 (1.0-4.0); LYMPHOCYTES % (AUTO) 26 % (12-44); MEAN CORPUSCULAR HEMOGLOBIN 30 PG (25-34); MEAN CORPUSCULAR HGB CONC 33 G/DL (32-36); MEAN CORPUSCULAR VOLUME 90 FL (80-99); MEAN PLATELET VOLUME 9.4 FL (7.4-10.4); MONOCYTES # (AUTO) 1.4 X 10^3 (0.0-1.0); MONOCYTES % (AUTO) 9 % (0-12); NEUTROPHILS % (AUTO) 61 % (42-75); PLATELET COUNT 488 10^3/uL (130-400); RED BLOOD COUNT 4.16 10^6/uL (4.35-5.85); RED CELL DISTRIBUTION WIDTH 13.7 % (10.0-14.5); WHITE BLOOD COUNT 16.5 10^3/uL (4.3-11.0)
[2016-12-01 20:19] LABS: BILIRUBIN,URINE NEGATIVE (NEGATIVE); KETONES,URINE 1+ (NEGATIVE); LEUKOCYTE ESTERASE ,URINE 2+ (NEGATIVE); NITRITE,URINE NEGATIVE (NEGATIVE); PH,URINE 5 (5-9); PROTEIN,URINE 4+ (NEGATIVE); UROBILINOGEN,URINE 1 MG/DL (NORMAL)
[2016-12-01] MEDS ORDERED: NS IV 500 ML 500 ML IV ONE (20:23)
[2016-12-01 20:28] LABS: BAND NEUTROPHILS 3 %; BASOPHILS % (MANUAL) 2 %; EOSINOPHILS % (MANUAL) 1 %; LYMPHOCYTES % (MANUAL) 34 %; NEUTROPHILS % (MANUAL) 54 %
[2016-12-01 20:32] LABS: ALBUMIN 3.3 G/DL (3.2-4.5); BILIRUBIN,TOTAL 0.1 MG/DL (0.1-1.0); CREATININE SERUM 0.97 MG/DL (0.60-1.30); MAGNESIUM 2.5 MG/DL (1.8-2.4); POTASSIUM 4.4 MMOL/L (3.6-5.0); TOTAL PROTEIN 6.6 G/DL (6.4-8.2)
[2016-12-01 20:52] LABS: THYROID STIMULATING HORMONE 1.96 UIU/ML (0.35-4.94)
[2016-12-01] MEDS ORDERED: ACYCLOVIR 400 MG TABLET (ZOVIRAX) PO ONE (21:00)
[2016-12-01] MEDS ORDERED: LEVOFLOXACIN 500 MG TAB (LEVAQUIN) PO ONE (21:00)
[2016-12-01] MEDS ORDERED: ACYC400T PO (21:04)
[2016-12-01] MEDS ORDERED: LEVO750T9 PO (21:04)
[2016-12-01] MEDS ORDERED: FLUT9.9S NSEACH (21:04)
[2016-12-01 21:29] VITALS: BP 137/52
== END 2016-12-01 21:22 | disposition home or self-care (01) ==
LOC: EDUNIT# 19:25 → ER 19:30
DX: R29.810 Facial weakness (principal); D72.829 Elevated white blood cell count, unspecified; J32.0 Chronic maxillary sinusitis; E11.649 Type 2 diabetes mellitus with hypoglycemia without coma; J44.9 Chronic obstructive pulmonary disease, unspecified; F17.210 Nicotine dependence, cigarettes, uncomplicated; Z79.4 Long term (current) use of insulin; Z79.82 Long term (current) use of aspirin; Z79.02 Long term (current) use of antithrombotics/antiplatelets
CPT/HCPCS: 36415; 70450; 71010; 80053; 81000; 82962; 83735; 84439; 84443; 85007; 85027; 85610; 85730; 86141; 87088; 93005; 93041; 96360

== ENCOUNTER → 2018-01-22 | Outpatient (CLI) | payer OTHER ==
[~2018-01-22] MED LIST changes: +ACHD5005 PO; +ACYC400T PO; +FLUT9.9S NSEACH; -HYDR-3812 PO; +LEVO750T9 PO; -METO-270 PO; +METO-387 PO
--- NOTE | 2018-01-22 10:26 | Diagnostic Imaging Report ---
PROCEDURE: US right lower extremity venous. TECHNIQUE: Multiple real-time grayscale images were obtained over the right lower extremity in various projections. Additional duplex Doppler and color Doppler images were also obtained. INDICATION: Right lower extremity swelling and pain. COMPARISON: None. FINDINGS: The right common femoral vein and superficial femoral vein and popliteal veins appear patent and compressible. There is no visible thrombus. There is normal variability of waveform with augmentation. IMPRESSION: No evidence of deep venous thrombosis in the right lower extremity. Dictated by: Dictated on workstation # [id number]
== END ==
LOC: RAD 07:52
PROVIDERS: ATTEND Internal Medicine Cardiovascular Disease
DX: M79.661 Pain in right lower leg (principal); M79.89 Other specified soft tissue disorders; R06.02 Shortness of breath; I25.10 Atherosclerotic heart disease of native coronary artery without angina pectoris; I65.23 Occlusion and stenosis of bilateral carotid arteries

== ENCOUNTER → 2018-08-09 | Outpatient (CLI) | payer OTHER ==
[~2018-08-09] VITALS: Ht 165.1 cm; Wt 55.8 kg
[~2018-08-09] MED LIST changes: +CATHETER FLUSH 10 ML SYR IV SCH; +REGADENOSON 0.4 MG/5 ML SYR (LEXISCAN) IV ONE
[2018-08-09 08:33] VITALS: BP 166/77
[2018-08-09 08:37] VITALS: BP 126/92
[2018-08-09 08:38] VITALS: BP 176/75
--- NOTE | 2018-08-11 20:26 | STRESS TEST ---
DATE OF SERVICE: 08/09/2018 RESTING AND POST REGADENOSON TECHNETIUM-99M TETROFOSMIN SPECT CT IMAGING ORDERING PHYSICIAN: Dr. Jeffries. PRIMARY PHYSICIAN: Dr. Sanchez. CLINICAL DIAGNOSIS: Coronary artery disease. Baseline images were carried out after injection of 10.84 mCi technetium-99m Tetrofosmin. This was followed by 0.4 mg regadenoson and 32 mCi of technetium-99m Tetrofosmin for stress imaging. The electrocardiogram showed sinus rhythm at baseline and did not change significantly with the regadenoson infusion. The patient noted some shortness of breath and stomach cramping following regadenoson infusion, which resolved in a few minutes. Review of images at rest and following stress does not indicate any significant perfusion defects consistent with significant myocardial ischemia or infarction. Gated images show normal global left ventricular systolic function with normal regional wall motion. Left ventricular ejection fraction is calculated to be 71%. Left ventricular end diastolic volume is 52 mL. TID is absent (1.07). CONCLUSIONS: 1. No evidence of significant myocardial ischemia or infarction on this study. 2. Normal regional wall motion. 3. Normal global left ventricular systolic function with a calculated ejection fraction of 71%. Job ID: [id number] DocumentID: [id number] Dictated Date: 08/11/2018 16:19:54 [employer] Associate Date: 08/11/2018 20:25:37 Dictated By: THOMAS JEFFRIES MD, MA, FACP, FACC,
== END ==
LOC: CARD 07:00
PROVIDERS: ATTEND Internal Medicine Cardiovascular Disease
DX: I25.10 Atherosclerotic heart disease of native coronary artery without angina pectoris (principal); I77.89 Other specified disorders of arteries and arterioles; E11.9 Type 2 diabetes mellitus without complications; I70.213 Atherosclerosis of native arteries of extremities with intermittent claudication, bilateral legs; J43.8 Other emphysema
CPT/HCPCS: 78452; 93017

== ENCOUNTER → 2018-08-29 | Outpatient (CLI) | payer OTHER ==
[~2018-08-29] MED LIST changes: -CATHETER FLUSH 10 ML SYR IV SCH; -REGADENOSON 0.4 MG/5 ML SYR (LEXISCAN) IV ONE
== END ==
LOC: CARD 11:53
PROVIDERS: ATTEND Internal Medicine Cardiovascular Disease
DX: I25.10 Atherosclerotic heart disease of native coronary artery without angina pectoris (principal); I77.9 Disorder of arteries and arterioles, unspecified; E11.9 Type 2 diabetes mellitus without complications; I73.9 Peripheral vascular disease, unspecified; J44.9 Chronic obstructive pulmonary disease, unspecified
CPT/HCPCS: 93306

== ENCOUNTER 2018-12-04 09:17 | Inpatient (IN) | payer OTHER ==
[~2018-12-04] VITALS: Ht 165.1 cm; Wt 56.7 kg
[2018-12-04] VITALS (15 sets, daily range): BP systolic 92–177; BP diastolic 54–124
[~2018-12-04 09:17] MED LIST changes: -HYDR-3454 PO; +HYDR-3455 PO
--- OUTSIDE RECORDS SUMMARY | 2018-12-04 09:23 | XMS REPORT | Continuity of Care Document ---
Author Organization Unknown Address Unknown Allergies Active Description Code Type Severity Reaction Onset Reported/Identified Relationship to Patient Clinical Status Yes No Known Drug Allergies [id number] Drug Allergy Unknown N/A 07/10/2007 Medications There is no data. Problems Date Dx Coded Attending Type Code Diagnosis Diagnosed By 06/07/1225 VALERIA CORTES FACC, THOMAS FLOR CCDS Ot Z48.812 ENCNTR FOR SURGICAL AFTCR FOLLOWING SURG 06/07/1225 THOMAS SHAW MD, FACC, FACP CCDS Ot Z95.1 PRESENCE OF AORTOCORONARY BYPASS GRAFT 06/07/1615 DELPHINE LICONA DO Ot M54.2 CERVICALGIA 06/07/1699 DELPHINE LICONA DO Ot M54.2 CERVICALGIA 01/12/2011 Ot 780.2 SYNCOPE AND COLLAPSE 01/12/2011 Ot 785.1 PALPITATIONS 02/20/2012 Ot 250.80 DIAB W OTH SPEC MANIFEST, TYPE II OR UNS 02/20/2012 Ot 599.0 URIN TRACT INFECTION NOS 02/20/2012 Ot V58.67 LONG-TERM (CURRENT) USE OF INSULIN 02/20/2012 Ot V58.69 OTH MED,LT,CURRENT USE 03/22/2012 Ot 530.11 REFLUX ESOPHAGITIS 03/22/2012 Ot 535.40 OTH SPECIFIED GASTRITIS,W/O MENTION OF H 03/22/2012 Ot V45.89 POSTSURGICAL STATES NEC 01/03/2014 PILLO FRANCOIS MD Ot 244.9 HYPOTHYROIDISM NOS 01/03/2014 PILLO FRANCOIS MD Ot 250.12 DIAB W KETOACIDOSIS, TYPE II OR UNSPEC T 01/03/2014 PILLO FRANCOIS MD Ot 250.62 DIAB W NEURO MANIFEST, TYPE II OR UNSPEC 01/03/2014 PILLO FRANCOIS MD Ot 250.82 DIAB W OTH SPEC MANIFEST, TYPE II OR UNS 01/03/2014 PILLO FRANCOIS MD Ot 305.1 TOBACCO USE DISORDER 01/03/2014 PILLO FRANCOIS MD Ot 311 DEPRESSIVE DISORDER NEC 01/03/2014 PILLO FRANCOIS MD Ot 357.2 NEUROPATHY IN DIABETES 01/03/2014 PILLO FRANCOIS MD Ot 401.9 HYPERTENSION NOS 01/03/2014 PILLO FRANCOIS MD Ot 491.21 OBSTR CHRONIC BRONCHITIS, W (ACUTE) EXAC 01/03/2014 PILLO FRANCOIS MD Ot 530.81 ESOPHAGEAL REFLUX 01/03/2014 PILLO FRANCOIS MD Ot V10.05 HX OF COLONIC MALIGNANCY 01/03/2014 PILLO FRANCOIS MD Ot V58.67 LONG-TERM (CURRENT) USE OF INSULIN 05/04/2014 PILLO FRANCOIS MD Ot 041.02 BACTERIAL INFECTION DUE TO STREPTOCOCCUS 05/04/2014 PILLO FRANCOIS MD Ot 244.9 HYPOTHYROIDISM NOS 05/04/2014 PILLO FRANCOIS MD Ot 250.01 DIAB BOBBI WO COMPL, TYPE I [JUVENILE TYP 05/04/2014 PILLO FRANCOIS MD Ot 300.00 ANXIETY STATE NOS 05/04/2014 PILLO FRANCOIS MD Ot 305.1 TOBACCO USE DISORDER 05/04/2014 PILLO FRANCOIS MD Ot 311 DEPRESSIVE DISORDER NEC 05/04/2014 PILLO FRANCOIS MD Ot 493.90 ASTHMA, UNSPECIFIED 05/04/2014 PILLO FRANCOIS MD Ot 530.81 ESOPHAGEAL REFLUX 05/04/2014 PILLO FRANCOIS MD Ot 682.5 CELLULITIS OF BUTTOCK 05/04/2014 PILLO FRANCOIS MD Ot V58.67 LONG-TERM (CURRENT) USE OF INSULIN 05/25/2014 PILLO FRANCOIS MD Ot 496 05/25/2014 PILLO FRANCOIS MD Ot 786.2 02/26/2015 ILA DAVALOS MD Ot 682.5 CELLULITIS OF BUTTOCK 02/26/2015 ILA DAVALOS MD Ot V58.67 LONG-TERM (CURRENT) USE OF INSULIN 02/26/2015 ILA DAVALOS MD Ot V58.69 OTH MED,LT,CURRENT USE 03/12/2015 KATJA PIÑA DO Ot 251.2 07/16/2015 USMAN FENG APRN Ot R10.9 07/23/2015 ILA DAVALOS MD Ot R10.13 11/29/2015 Ot 424.0 MITRAL VALVE DISORDER 11/29/2015 Ot 429.3 CARDIOMEGALY 11/29/2015 Ot 780.2 SYNCOPE AND COLLAPSE 11/29/2015 PILLO FRANCOIS MD Ot 786.2 COUGH 11/29/2015 PILLO FRANCOIS MD Ot V15.82 HISTORY OF TOBACCO USE 11/29/2015 Ot 780.2 SYNCOPE AND COLLAPSE 11/29/2015 Ot 785.1 PALPITATIONS 11/29/2015 Ot 250.00 DIAB BOBBI WO COMPL, TYPE II OR UNSPEC TY 11/29/2015 Ot 787.02 NAUSEA ALONE 11/29/2015 Ot 789.00 ABDOMINAL PAIN, UNSPECIFIED SITE 11/29/2015 Ot V72.84 EXAM PRE-OPERATIVE NOS 11/29/2015 PILLO FRANCOIS MD Ot 786.2 COUGH 11/29/2015 PILLO FRANCOIS MD Ot V76.12 OTH SCREEN MAMMO-MALIGN NEOPLASM OF [place] 11/29/2015 PILLO FRANCOIS MD Ot 496 CHR AIRWAY OBSTRUCT NEC 11/29/2015 PILLO FRANCOIS MD Ot 786.2 COUGH 11/29/2015 KATJA PIÑA DO Ot 251.2 HYPOGLYCEMIA NOS 11/29/2015 USMAN FENG APRN Ot R10.9 UNSPECIFIED ABDOMINAL PAIN 11/29/2015 ILA DAVALOS MD Ot R10.13 EPIGASTRIC PAIN 11/30/2015 ILA DAVALOS MD Ot Z01.818 ENCOUNTER FOR OTHER PREPROCEDURAL EXAMIN 12/01/2015 ILA DAVALOS MD Ot Z01.818 ENCOUNTER FOR OTHER PREPROCEDURAL EXAMIN 12/02/2015 ILA DAVALOS MD Ot E11.9 TYPE 2 DIABETES MELLITUS WITHOUT COMPLIC 12/02/2015 ILA DAVALOS MD Ot K25.9 GASTRIC ULCER, UNSP ACUTE OR CHRONIC, 12/02/2015 ILA DAVALOS MD Ot K31.89 OTHER DISEASES OF STOMACH AND DUODENUM 12/02/2015 ILA DAVALOS MD Ot Z12.11 ENCOUNTER FOR SCREENING FOR MALIGNANT NE 12/02/2015 ILA DAVALOS MD Ot Z80.0 FAMILY HISTORY OF MALIGNANT NEOPLASM OF 12/03/2015 ILA DAVALOS MD Ot E11.9 TYPE 2 DIABETES MELLITUS WITHOUT COMPLIC 12/03/2015 ILA DAVALOS MD Ot K25.9 GASTRIC ULCER, UNSP ACUTE OR CHRONIC, 12/03/2015 ILA DAVALOS MD Ot K31.89 OTHER DISEASES OF STOMACH AND DUODENUM 12/03/2015 ILA DAVALOS MD Ot Z12.11 ENCOUNTER FOR SCREENING FOR MALIGNANT NE 12/03/2015 ILA DAVALOS MD Ot Z80.0 FAMILY HISTORY OF MALIGNANT NEOPLASM OF 12/21/2015 JAH PORTER MD Ot E03.9 HYPOTHYROIDISM, UNSPECIFIED 12/21/2015 JAH PORTER MD Ot E11.65 TYPE 2 DIABETES MELLITUS WITH HYPERGLYCE 12/21/2015 JAH PORTER MD Ot E86.0 DEHYDRATION 12/21/2015 JAH PORTER MD Ot F17.210 NICOTINE DEPENDENCE, CIGARETTES, UNCOMPL 12/21/2015 JAH PORTER MD Ot F32.9 MAJOR DEPRESSIVE DISORDER, SINGLE EPISOD 12/21/2015 JAH PORTER MD Ot F41.9 ANXIETY DISORDER, UNSPECIFIED 12/21/2015 JAH PORTER MD Ot J44.9 CHRONIC OBSTRUCTIVE PULMONARY DISEASE, U 12/21/2015 JAH PORTER MD Ot K21.9 GASTRO-ESOPHAGEAL REFLUX DISEASE WITHOUT 12/28/2015 VALERIA CORTES FACC, THOMAS FACP CCDS Ot E11.9 TYPE 2 DIABETES MELLITUS WITHOUT COMPLIC 12/28/2015 VALERIA CORTSE FACC, ALI FACP CCDS Ot E78.5 HYPERLIPIDEMIA, UNSPECIFIED 12/28/2015 VALERIA CORTES FACC, ALI FACP CCDS Ot I25.10 ATHSCL HEART DISEASE OF [place] CORONARY 12/28/2015 VALERIA CORTES FACC, ALI FACP CCDS Ot I25.84 CORONARY ATHEROSCLEROSIS DUE TO CALCIFIE 12/28/2015 VALERIA CORTES FACC, THOMAS FACP CCDS Ot J44.9 CHRONIC OBSTRUCTIVE PULMONARY DISEASE, U 12/28/2015 VALERIA CORTES FACC, ALI FACP CCDS Ot R55 SYNCOPE AND COLLAPSE 12/28/2015 VALERIA CORTES FACC, THOMAS FACP CCDS Ot Z72.0 TOBACCO USE 12/28/2015 VALERIA CORTES FACC, THOMAS FACP CCDS Ot Z79.4 PARTS PRODUCT ANALYST (CURRENT) USE OF INSULIN 12/28/2015 VALERIA CORTES FACC, ALI FACP CCDS Ot Z79.899 OTHER JAIL (CURRENT) DRUG THERAPY 01/06/2016 PILLO FRANCOIS MD Ot R00.2 PALPITATIONS 01/06/2016 PILLO FRANCOIS MD Ot R55 SYNCOPE AND COLLAPSE 01/12/2016 OLIVIA SKY MD Ot E11.9 TYPE 2 DIABETES MELLITUS WITHOUT COMPLIC 01/12/2016 OLIVIA SKY MD Ot I10 ESSENTIAL (PRIMARY) HYPERTENSION 01/12/2016 OLIVIA SKY MD F Ot Z48.812 ENCNTR FOR SURGICAL AFTCR FOLLOWING SURG 01/12/2016 OLIVIA SKY MD F Ot Z95.1 PRESENCE OF AORTOCORONARY BYPASS GRAFT 01/14/2016 NJ COOK Ot I25.10 ATHSCL HEART DISEASE OF [place] CORONARY 01/14/2016 NJ COOK FISHING VESSEL OPERATOR Ot Z95.1 PRESENCE OF AORTOCORONARY BYPASS GRAFT 01/18/2016 OLIVIA SKY MD F Ot D72.829 ELEVATED WHITE BLOOD CELL COUNT, UNSPECI 01/20/2016 OLIVIA SKY MD Ot D72.829 ELEVATED WHITE BLOOD CELL COUNT, UNSPECI 02/04/2016 OLIVIA SKY MD Ot E11.9 TYPE 2 DIABETES MELLITUS WITHOUT COMPLIC 02/04/2016 OLIVIA SKY MD Ot I10 ESSENTIAL (PRIMARY) HYPERTENSION 02/04/2016 OLIVAI SKY MD F Ot Z48.812 ENCNTR FOR SURGICAL AFTCR FOLLOWING SURG 02/04/2016 OLIVIA SKY MD F Ot Z95.1 PRESENCE OF AORTOCORONARY BYPASS GRAFT 02/04/2016 NJ COOK Ot I25.10 ATHSCL HEART DISEASE OF [place] CORONARY 02/04/2016 NJ COOK FISHING VESSEL OPERATOR Ot Z95.1 PRESENCE OF AORTOCORONARY BYPASS GRAFT 02/04/2016 OLIVIA SKY MD Ot D72.829 ELEVATED WHITE BLOOD CELL COUNT, UNSPECI 02/07/2016 PILLO FRANCOIS MD Ot M54.2 CERVICALGIA 02/07/2016 PILLO FRANCOIS MD Ot M89.8X8 OTHER SPECIFIED DISORDERS OF BONE, OTHER 02/07/2016 PILLO FRANCOIS MD Ot Z98.1 ARTHRODESIS STATUS 02/09/2016 OLIVIA SKY MD Ot E11.9 TYPE 2 DIABETES MELLITUS WITHOUT COMPLIC 02/09/2016 OLIVIA SKY MD Ot I10 ESSENTIAL (PRIMARY) HYPERTENSION 02/09/2016 OLIVIA SKY MD F Ot Z48.812 ENCNTR FOR SURGICAL AFTCR FOLLOWING SURG 02/09/2016 OLIVIA SKY MD F Ot Z95.1 PRESENCE OF AORTOCORONARY BYPASS GRAFT 02/09/2016 NJ COOK Ot I25.10 ATHSCL HEART DISEASE OF [place] CORONARY 02/09/2016 NJ COOK Ot Z95.1 PRESENCE OF AORTOCORONARY BYPASS GRAFT 02/09/2016 OLIVIA SKY MD F Ot D72.829 ELEVATED WHITE BLOOD CELL COUNT, UNSPECI 02/09/2016 PILLO FRANCOIS MD Ot M54.2 CERVICALGIA 02/09/2016 PILLO FRANCOIS MD Ot M89.8X8 OTHER SPECIFIED DISORDERS OF BONE, OTHER 02/09/2016 PILLO FRANCOIS MD Ot Z98.1 ARTHRODESIS STATUS 02/10/2016 VALERIA CORTES FAC, ALI [facility] CCDS Ot Z48.812 ENCNTR FOR SURGICAL AFTCR FOLLOWING SURG 02/10/2016 VALERIA CORTES FAC, ALI FACP CCDS Ot Z95.1 PRESENCE OF AORTOCORONARY BYPASS GRAFT 02/18/2016 PETR BOWMAN DO Ot M81.0 AGE-RELATED OSTEOPOROSIS W/O CURRENT PAT 02/18/2016 JEFFRY BOWMAN DOISON L Ot M85.851 OTH DISRD OF BONE DENSITY AND STRUCTURE, 02/18/2016 PETR BOWMAN DO L Ot M85.852 OTH DISRD OF BONE DENSITY AND STRUCTURE, 02/18/2016 GRACIE AVERY PETR L Ot M85.88 OTH DISRD OF BONE DENSITY AND STRUCTURE, 02/21/2016 PETR BOWMAN DO L Ot M81.0 AGE-RELATED OSTEOPOROSIS W/O CURRENT PAT 02/21/2016 JEFFRY BOWMAN DOISON L Ot M85.851 OTH DISRD OF BONE DENSITY AND STRUCTURE, 02/21/2016 PETR BOWMAN DO Ot M85.852 OTH DISRD OF BONE DENSITY AND STRUCTURE, 02/21/2016 PETR BOWMAN DO L Ot M85.88 OTH DISRD OF BONE DENSITY AND STRUCTURE, 02/27/2016 PILLO FRANCOIS MD Ot R00.2 PALPITATIONS 02/27/2016 PILLO FRANCOIS MD Ot R55 SYNCOPE AND COLLAPSE 02/28/2016 PILLO FRANCOIS MD Ot R00.2 PALPITATIONS 02/28/2016 PILLO FRANCOIS MD Ot R55 SYNCOPE AND COLLAPSE 03/09/2016 OLIVIA SKY MD Ot E11.9 TYPE 2 DIABETES MELLITUS WITHOUT COMPLIC 03/09/2016 OLIVIA SKY MD Ot I10 ESSENTIAL (PRIMARY) HYPERTENSION 03/09/2016 OLIVIA SKY MD Ot Z48.812 ENCNTR FOR SURGICAL AFTCR FOLLOWING SURG 03/09/2016 OLIVIA SKY MD Ot Z95.1 PRESENCE OF AORTOCORONARY BYPASS GRAFT 03/09/2016 NJ COOK Ot I25.10 ATHSCL HEART DISEASE OF [place] CORONARY 03/09/2016 NJ COOK Ot Z95.1 PRESENCE OF AORTOCORONARY BYPASS GRAFT 03/09/2016 OLIVIA SKY MD Ot D72.829 ELEVATED WHITE BLOOD CELL COUNT, UNSPECI 03/09/2016 PETR BOWMAN DO Ot M81.0 AGE-RELATED OSTEOPOROSIS W/O CURRENT PAT 03/09/2016 PETR BOWMAN DO Ot M85.851 OT DISRD OF BONE DENSITY AND STRUCTURE, 03/09/2016 PETR BOWMAN DO Ot M85.852 OTH DISRD OF BONE DENSITY AND STRUCTURE, 03/09/2016 PETR BOWMAN DO Ot M85.88 OTH DISRD OF BONE DENSITY AND STRUCTURE, 03/09/2016 VALERIA CORTES FAC, ALI FACP CCDS Ot Z48.812 ENCNTR FOR SURGICAL AFTCR FOLLOWING SURG 03/09/2016 VALER[facility] CORTES [facility]AC, [facility] Ot Z95.1 PRESENCE OF AORTOCORONARY BYPASS GRAFT 03/09/2016 PILLO FRANCOIS MD Ot M54.2 CERVICALGIA 03/09/2016 PILLO FRANCOIS MD Ot M89.8X8 OTHER SPECIFIED DISORDERS OF BONE, OTHER 03/09/2016 PILLO FRANCOIS MD Ot Z98.1 ARTHRODESIS STATUS 03/09/2016 PILLO FRANCOIS MD Ot R00.2 PALPITATIONS 03/09/2016 PILLO FRANCOIS MD Ot R55 SYNCOPE AND COLLAPSE 03/16/2016 DELPHINE LICONA DO Ot M54.12 RADICULOPATHY, CERVICAL REGION 03/27/2016 VALERIA CORTES FACC, ALI FACP CCDS Ot Z48.812 ENCNTR FOR SURGICAL AFTCR FOLLOWING SURG 03/27/2016 VALERIA CORTES FAC, THOMAS FLOR CCDS Ot Z95.1 PRESENCE OF AORTOCORONARY BYPASS GRAFT 04/07/2016 DELPHINE LICONA DO Ot M54.2 CERVICALGIA 04/17/2016 DELPHINE LICONA DO Ot M54.2 CERVICALGIA 08/15/2016 OLIVIA SKY MD Ot E11.9 TYPE 2 DIABETES MELLITUS WITHOUT COMPLIC 08/15/2016 OLIVIA SKY MD Ot I10 ESSENTIAL (PRIMARY) HYPERTENSION 08/15/2016 OLIVIA SKY MD Ot Z48.812 ENCNTR FOR SURGICAL AFTCR FOLLOWING SURG 08/15/2016 OLIVIA SKY MD Ot Z95.1 PRESENCE OF AORTOCORONARY BYPASS GRAFT 08/15/2016 NJ COOK Ot I25.10 ATHSCL HEART DISEASE OF [place] CORONARY 08/15/2016 NJ COOK Ot Z95.1 PRESENCE OF AORTOCORONARY BYPASS GRAFT 08/15/2016 OLIVIA SKY MD Ot D72.829 ELEVATED WHITE BLOOD CELL COUNT, UNSPECI 08/15/2016 PETR BOWMAN DO Ot M81.0 AGE-RELATED OSTEOPOROSIS W/O CURRENT PAT 08/15/2016 PETR BOWMAN DO Ot M85.851 OT DISRD OF BONE DENSITY AND STRUCTURE, 08/15/2016 PETR BOWMAN DO Ot M85.852 OTH DISRD OF BONE DENSITY AND STRUCTURE, 08/15/2016 PETR BOWMAN DO Ot M85.88 OTH DISRD OF BONE DENSITY AND STRUCTURE, 08/15/2016 PILLO FRANCOIS MD Ot M54.2 CERVICALGIA 08/15/2016 PILLO FRANCOIS MD Ot M89.8X8 OTHER SPECIFIED DISORDERS OF BONE, OTHER 08/15/2016 PILLO FRANCOIS MD Ot Z98.1 ARTHRODESIS STATUS 08/15/2016 PILLO FRANCOIS MD Ot R00.2 PALPITATIONS 08/15/2016 PILLO FRANCOIS MD Ot R55 SYNCOPE AND COLLAPSE 08/15/2016 DELPHINE LICONA DO Ot M54.12 RADICULOPATHY, CERVICAL REGION 08/21/2016 ARNEL ZHOU Ot E11.9 TYPE 2 DIABETES MELLITUS WITHOUT COMPLIC 08/21/2016 BAIMA, ARNEL L FISHING VESSEL OPERATOR Ot I25.10 ATHSCL HEART DISEASE OF [place] CORONARY 08/21/2016 BAIMA, ARNEL L FISHING VESSEL OPERATOR Ot I70.213 ATHSCL [place] ARTERIES OF [facility] 08/21/2016 BAIMA, ARNEL L FISHING VESSEL OPERATOR Ot I70.92 CHRONIC TOTAL OCCLUSION OF ARTERY OF THE 08/21/2016 BAIMA ARNEL L FISHING VESSEL OPERATOR Ot J44.9 CHRONIC OBSTRUCTIVE PULMONARY DISEASE, U 08/21/2016 BAIMA, ARNEL L FISHING VESSEL OPERATOR Ot Z72.0 TOBACCO USE 08/21/2016 BAIMA, ARNEL L FISHING VESSEL OPERATOR Ot Z79.4 JAIL (CURRENT) USE OF INSULIN 08/21/2016 BAIMA, ARNEL L FISHING VESSEL OPERATOR Ot Z79.899 OTHER JAIL (CURRENT) DRUG THERAPY 08/21/2016 BAIMA, ARNEL L FISHING VESSEL OPERATOR Ot Z95.1 PRESENCE OF AORTOCORONARY BYPASS GRAFT 08/26/2016 BAIMA ARNEL L FISHING VESSEL OPERATOR Ot E11.9 TYPE 2 DIABETES MELLITUS WITHOUT COMPLIC 08/26/2016 BAIMA, ARNEL L FISHING VESSEL OPERATOR Ot I25.10 ATHSCL HEART DISEASE OF [place] CORONARY 08/26/2016 BAIMA, ARNEL L FISHING VESSEL OPERATOR Ot I70.213 ATHSCL [place] ARTERIES OF [facility] 08/26/2016 BAIMA, ARNEL L FISHING VESSEL OPERATOR Ot I70.92 CHRONIC TOTAL OCCLUSION OF ARTERY OF THE 08/26/2016 BAIMA ARNEL L FISHING VESSEL OPERATOR Ot J44.9 CHRONIC OBSTRUCTIVE PULMONARY DISEASE, U 08/26/2016 BAIMA, ARNEL L FISHING VESSEL OPERATOR Ot Z72.0 TOBACCO USE 08/26/2016 BAIMA, ARNEL L FISHING VESSEL OPERATOR Ot Z79.4 JAIL (CURRENT) USE OF INSULIN 08/26/2016 BAIMA, ARNEL L FISHING VESSEL OPERATOR Ot Z79.899 OTHER JAIL (CURRENT) DRUG THERAPY 08/26/2016 BAIMA, ARNEL L FISHING VESSEL OPERATOR Ot Z95.1 PRESENCE OF AORTOCORONARY BYPASS GRAFT 08/27/2016 BAIMA, ARNEL L FISHING VESSEL OPERATOR Ot E11.9 TYPE 2 DIABETES MELLITUS WITHOUT COMPLIC 08/27/2016 BAIMA, ARNEL L FISHING VESSEL OPERATOR Ot I25.10 ATHSCL HEART DISEASE OF [place] CORONARY 08/27/2016 BAIMA, ARNEL L FISHING VESSEL OPERATOR Ot I70.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 08/27/2016 ROBERTARNEL CHEN FISHING VESSEL OPERATOR Ot I70.92 CHRONIC TOTAL OCCLUSION OF ARTERY OF THE 08/27/2016 ROBERTARNEL CHEN Marisol FISHING VESSEL OPERATOR Ot J44.9 CHRONIC OBSTRUCTIVE PULMONARY DISEASE, U 08/27/2016 ARNEL ZHOU FISHING VESSEL OPERATOR Ot Z72.0 TOBACCO USE 08/27/2016 WINNIE ARNEL L FISHING VESSEL OPERATOR Ot Z79.4 JAIL (CURRENT) USE OF INSULIN 08/27/2016 WINNIE ARNEL Marisol RIOJASP Ot Z79.899 OTHER JAIL (CURRENT) DRUG THERAPY 08/27/2016 ROBERTARNEL CHEN FISHING VESSEL OPERATOR Ot Z95.1 PRESENCE OF AORTOCORONARY BYPASS GRAFT 12/01/2016 JESSICA SALGADO MD, Ot D72.829 ELEVATED WHITE BLOOD CELL COUNT, UNSPECI 12/01/2016 JESSICA SALGADO MD, Ot E11.649 TYPE 2 DIABETES MELLITUS WITH HYPOGLYCEM 12/01/2016 JESSICA SALGADO MD Ot F17.210 NICOTINE DEPENDENCE, CIGARETTES, UNCOMPL 12/01/2016 JESSICA SALGADO MD, Ot J32.0 CHRONIC MAXILLARY SINUSITIS 12/01/2016 JESSICA SALGADO MD, Ot J44.9 CHRONIC OBSTRUCTIVE PULMONARY DISEASE, U 12/01/2016 JESSICA SALGADO MD, Ot R29.810 FACIAL WEAKNESS 12/01/2016 JESSICA SALGADO MD Ot R47.81 SLURRED SPEECH 12/01/2016 JESSICA SALGADO MD Ot Z79.02 JAIL (CURRENT) USE OF ANTITHROMBOTI 12/01/2016 JESSICA SALGADO MD Ot Z79.4 JAIL (CURRENT) USE OF INSULIN 12/01/2016 JESSICA SALGADO MD, Ot Z79.82 PARTS PRODUCT ANALYST (CURRENT) USE OF ASPIRIN 12/05/2016 JESSICA SALGADO MD, Ot D72.829 ELEVATED WHITE BLOOD CELL COUNT, UNSPECI 12/05/2016 JESSICA SALGADO MD Ot E11.649 TYPE 2 DIABETES MELLITUS WITH HYPOGLYCEM 12/05/2016 JESSICA SALGADO MD Ot F17.210 NICOTINE DEPENDENCE, CIGARETTES, UNCOMPL 12/05/2016 JESSICA SALGADO MD, Ot J32.0 CHRONIC MAXILLARY SINUSITIS 12/05/2016 JESSICA SALGADO MD, Ot J44.9 CHRONIC OBSTRUCTIVE PULMONARY DISEASE, U 12/05/2016 JESSICA SALGADO MD, Ot R29.810 FACIAL WEAKNESS 12/05/2016 JESSICA SALGADO MD, Ot R47.81 SLURRED SPEECH 12/05/2016 JESSICA SALGADO MD, Ot Z79.02 JAIL (CURRENT) USE OF ANTITHROMBOTI 12/05/2016 JESSICA SALGADO MD, Ot Z79.4 PARTS PRODUCT ANALYST (CURRENT) USE OF INSULIN 12/05/2016 JESSICA SALGADO MD, Ot Z79.82 JAIL (CURRENT) USE OF ASPIRIN 01/23/2018 VALERIA CORTES FACC, THOMAS FACP CCDS Ot I25.10 ATHSCL HEART DISEASE OF [place] CORONARY 01/23/2018 VALERIA CORTES FACC, THOMAS FACP CCDS Ot I65.23 OCCLUSION AND STENOSIS OF BILATERAL ALONSO 01/23/2018 VALERIA CORTES FACC, THOMAS FACP CCDS Ot M79.661 PAIN IN RIGHT LOWER LEG 01/23/2018 VALERIA CORTES FACC, THOMAS FACP CCDS Ot M79.89 OTHER SPECIFIED SOFT TISSUE DISORDERS 01/23/2018 THOMAS SHAW MD, FACC FACP CCDS Ot R06.02 SHORTNESS OF BREATH 03/05/2018 THOMAS SHAW MD, FACC FACP CCDS Ot I25.10 ATHSCL HEART DISEASE OF [place] CORONARY 03/05/2018 VALERIA CORTES FACC, ALI FACP CCDS Ot I65.23 OCCLUSION AND STENOSIS OF BILATERAL ALONSO 03/05/2018 VALERIA CORTES FACC, ALI FACP CCDS Ot M79.661 PAIN IN RIGHT LOWER LEG 03/05/2018 VALERIA CORTES FACC, ALI FACP CCDS Ot M79.89 OTHER SPECIFIED SOFT TISSUE DISORDERS 03/05/2018 THOMAS SHAW MD, FACC FACP CCDS Ot R06.02 SHORTNESS OF BREATH 08/12/2018 THOMAS SHAW MD, FACC FACP CCDS Ot E11.9 TYPE 2 DIABETES MELLITUS WITHOUT COMPLIC 08/12/2018 VALERIA MD FACC, ALI FACP CCDS Ot I25.10 ATHSCL HEART DISEASE OF [place] CORONARY 08/12/2018 VALERIA CORTES FACC, ALI FACP CCDS Ot I70.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 08/12/2018 VALERIA CORTES FACC, ALI FACP CCDS Ot I77.89 OTHER SPECIFIED DISORDERS OF ARTERIES AN 08/12/2018 VALERIA CORTES FACC, ALI FACP CCDS Ot J43.8 OTHER EMPHYSEMA 08/30/2018 VALERIA CORTES FACC, ALI FACP CCDS Ot E11.9 TYPE 2 DIABETES MELLITUS WITHOUT COMPLIC 08/30/2018 VALERIA CORTES FACC, ALI FACP CCDS Ot I25.10 ATHSCL HEART DISEASE OF [place] CORONARY 08/30/2018 VALERIA CORTES FACC, ALI FACP CCDS Ot I73.9 PERIPHERAL VASCULAR DISEASE, UNSPECIFIED 08/30/2018 VAELRIA CORTES FACC, ALI FACP CCDS Ot I77.9 DISORDER OF ARTERIES AND ARTERIOLES, UNS 08/30/2018 VALERIA CORTES FACC, ALI FACP CCDS Ot J44.9 CHRONIC OBSTRUCTIVE PULMONARY DISEASE, U 09/04/2018 VALERIA CORTES FACC, ALI FACP CCDS Ot E11.9 TYPE 2 DIABETES MELLITUS WITHOUT COMPLIC 09/04/2018 VALERIA CORTES FACC, ALI FACP CCDS Ot I25.10 ATHSCL HEART DISEASE OF [place] CORONARY 09/04/2018 VALERIA CORTES FACC, ALI FACP CCDS Ot I73.9 PERIPHERAL VASCULAR DISEASE, UNSPECIFIED 09/04/2018 VALERIA CORTES FACC, ALI FACP CCDS Ot I77.9 DISORDER OF ARTERIES AND ARTERIOLES, UNS 09/04/2018 VALERIA CORTES FACC, ALI FACP CCDS Ot J44.9 CHRONIC OBSTRUCTIVE PULMONARY DISEASE, U 09/19/2018 VALERIA CORTES FACC, ALI FACP CCDS Ot E11.9 TYPE 2 DIABETES MELLITUS WITHOUT COMPLIC 09/19/2018 VALERIA CORTES FACC, ALI FACP CCDS Ot I25.10 ATHSCL HEART DISEASE OF [place] CORONARY 09/19/2018 VALERIA CORTES FACC, ALI FACP CCDS Ot I73.9 PERIPHERAL VASCULAR DISEASE, UNSPECIFIED 09/19/2018 VALERIA CORTES FACC, ALI FACP CCDS Ot I77.9 DISORDER OF ARTERIES AND ARTERIOLES, UNS 09/19/2018 VALERIA CORTES FACC, ALI FACP CCDS Ot J44.9 CHRONIC OBSTRUCTIVE PULMONARY DISEASE, U Procedures Code Description Performed By Performed On 86.04 05/02/2014 86.04 05/03/2014 Results Test Result Range Automated blood complete blood count (hemogram) panel - 08/15/16 10:25 Blood leukocytes automated count (number/volume) 15.2 10*3/uL 4.3-11.0 Blood erythrocytes automated count (number/volume) 4.79 10*6/uL 4.35-5.85 Venous blood hemoglobin measurement (mass/volume) 14.4 g/dL 11.5-16.0 Blood hematocrit (volume fraction) 43 % 35-52 Automated erythrocyte mean corpuscular volume 90 [foz_us] 80-99 Automated erythrocyte mean corpuscular hemoglobin (mass per erythrocyte) 30 pg 25-34 Automated erythrocyte mean corpuscular hemoglobin concentration measurement (mass/volume) 33 g/dL 32-36 Automated erythrocyte distribution width ratio 14.0 % 10.0- 14.5 Automated blood platelet count (count/volume) 383 10*3/uL 130-400 Automated blood platelet mean volume measurement 9.8 [foz_us] 7.4-10.4 PT panel in platelet poor plasma by coagulation assay - 08/15/16 10:25 Prothrombin time (PT) in platelet poor plasma by coagulation assay 11.0 s 12.2-14.7 INR in platelet poor plasma or blood by coagulation assay 0.8 0.8-1.4 Activated partial thromboplastin time (aPTT) in platelet poor plasma bycoagulation assay - 08/15/16 10:25 Activated partial thromboplastin time (aPTT) in platelet poor plasma bycoagulation assay < s 24-35 Comprehensive metabolic panel - 08/15/16 10:25 Serum or plasma sodium measurement (moles/volume) 138 mmol/L 135-145 Serum or plasma potassium measurement (moles/volume) 4.2 mmol/L 3.6-5.0 Serum or plasma chloride measurement (moles/volume) 104 mmol/L 98-107 Carbon dioxide 25 mmol/L 21-32 Serum or plasma anion gap determination (moles/volume) 9 mmol/L 5-14 Serum or plasma urea nitrogen measurement (mass/volume) 22 mg/dL 7-18 Serum or plasma creatinine measurement (mass/volume) 0.78 mg/dL 0.60-1.30 Serum or plasma urea nitrogen/creatinine mass ratio 28 NRG Serum or plasma creatinine measurement with calculation of estimated glomerular filtration rate > NRG Serum or plasma glucose measurement (mass/volume) 78 mg/dL 70-105 Serum or plasma calcium measurement (mass/volume) 8.7 mg/dL 8.5-10.1 Serum or plasma total bilirubin measurement (mass/volume) 0.4 mg/dL 0.1-1.0 Serum or plasma alkaline phosphatase measurement (enzymatic activity/volume) 103 U/L 40-136 Serum or plasma aspartate aminotransferase measurement (enzymatic activity/volume) 18 U/L 5-34 Serum or plasma alanine aminotransferase measurement (enzymatic activity/volume) 16 U/L 0-55 Serum or plasma protein measurement (mass/volume) 6.8 g/dL 6.4-8.2 Serum or plasma albumin measurement (mass/volume) 3.8 g/dL 3.2-4.5 Lipid 1996 panel - 08/15/16 10:25 Serum or plasma triglyceride measurement (mass/volume) 106 mg/dL <150 Serum or plasma cholesterol measurement (mass/volume) 284 mg/dL < 200 Serum or plasma cholesterol in HDL measurement (mass/volume) 74 mg/dL 40-60 Cholesterol in LDL [mass/volume] in serum or plasma by direct assay 198 mg/dL 1-129 Serum or plasma cholesterol in VLDL measurement (mass/volume) 21 mg/dL 5-40 Methicillin resistant Staphylococcus aureus (MRSA) screening culture - 08/15/16 10:25 Methicillin resistant Staphylococcus aureus (MRSA) screening culture NEG NRG Capillary blood glucose measurement by glucometer (mass/volume) - 08/15/16 21:05 Capillary blood glucose measurement by glucometer (mass/volume) 152 mg/dL 70-110 Automated blood complete blood count (hemogram) panel - 08/16/16 03:32 Blood leukocytes automated count (number/volume) 11.9 10*3/uL 4.3-11.0 Blood erythrocytes automated count (number/volume) 4.44 10*6/uL 4.35-5.85 Venous blood hemoglobin measurement (mass/volume) 13.3 g/dL 11.5-16.0 Blood hematocrit (volume fraction) 40 % 35-52 Automated erythrocyte mean corpuscular volume 90 [foz_us] 80-99 Automated erythrocyte mean corpuscular hemoglobin (mass per erythrocyte) 30 pg 25-34 Automated erythrocyte mean corpuscular hemoglobin concentration measurement (mass/volume) 33 g/dL 32-36 Automated erythrocyte distribution width ratio 13.8 % 10.0- 14.5 Automated blood platelet count (count/volume) 356 10*3/uL 130-400 Automated blood platelet mean volume measurement 9.9 [foz_us] 7.4-10.4 Whole blood basic metabolic panel - 08/16/16 03:32 Serum or plasma sodium measurement (moles/volume) 140 mmol/L 135-145 Serum or plasma potassium measurement (moles/volume) 4.0 mmol/L 3.6-5.0 Serum or plasma chloride measurement (moles/volume) 109 mmol/L 98-107 Carbon dioxide 22 mmol/L 21-32 Serum or plasma anion gap determination (moles/volume) 9 mmol/L 5-14 Serum or plasma urea nitrogen measurement (mass/volume) 13 mg/dL 7-18 Serum or plasma creatinine measurement (mass/volume) 0.71 mg/dL 0.60-1.30 Serum or plasma urea nitrogen/creatinine mass ratio 18 NRG Serum or plasma creatinine measurement with calculation of estimated glomerular filtration rate > NRG Serum or plasma glucose measurement (mass/volume) 162 mg/dL 70-105 Serum or plasma calcium measurement (mass/volume) 8.0 mg/dL 8.5-10.1 Capillary blood glucose measurement by glucometer (mass/volume) - 12/01/16 19:36 Capillary blood glucose measurement by glucometer (mass/volume) 78 mg/dL 70-110 Complete blood count (CBC) with automated white blood cell (WBC) differential - 12/01/16 20:00 Blood leukocytes automated count (number/volume) 16.5 10*3/uL 4.3-11.0 Blood erythrocytes automated count (number/volume) 4.16 10*6/uL 4.35-5.85 Venous blood hemoglobin measurement (mass/volume) 12.3 g/dL 11.5-16.0 Blood hematocrit (volume fraction) 38 % 35-52 Automated erythrocyte mean corpuscular volume 90 [foz_us] 80-99 Automated erythrocyte mean corpuscular hemoglobin (mass per erythrocyte) 30 pg 25-34 Automated erythrocyte mean corpuscular hemoglobin concentration measurement (mass/volume) 33 g/dL 32-36 Automated erythrocyte distribution width ratio 13.7 % 10.0- 14.5 Automated blood platelet count (count/volume) 488 10*3/uL 130-400 Automated blood platelet mean volume measurement 9.4 [foz_us] 7.4-10.4 Automated blood neutrophils/100 leukocytes 61 % 42-75 Automated blood lymphocytes/100 leukocytes 26 % 12-44 Blood monocytes/100 leukocytes 9 % 0-12 Automated blood eosinophils/100 leukocytes 3 % 0-10 Automated blood basophils/100 leukocytes 1 % 0-10 Blood neutrophils automated count (number/volume) 10.0 10*3 1.8-7.8 Blood lymphocytes automated count (number/volume) 4.4 10*3 1.0-4.0 Blood monocytes automated count (number/volume) 1.4 10*3 0.0- 1.0 Automated eosinophil count 0.5 10*3/uL 0.0-0.3 Automated blood basophil count (count/volume) 0.2 10*3/uL 0.0-0.1 Blood manual differential performed detection - 12/01/16 20:00 Blood monocytes/100 leukocytes 6 % NRG Manual blood segmented neutrophils/100 leukocytes 54 % NRG Blood band neutrophils/100 leukocytes 3 % NRG Manual blood lymphocytes/100 leukocytes 34 % NRG Manual eosinophils/100 leukocytes in nose 1 % NRG Manual blood basophils/100 leukocytes 2 % NRG Blood erythrocyte morphology finding identification NORMAL NRG PT panel in platelet poor plasma by coagulation assay - 12/01/16 20:00 Prothrombin time (PT) in platelet poor plasma by coagulation assay 13.0 s 12.2-14.7 INR in platelet poor plasma or blood by coagulation assay 1.0 0.8-1.4 Activated partial thromboplastin time (aPTT) in platelet poor plasma bycoagulation assay - 12/01/16 20:00 Activated partial thromboplastin time (aPTT) in platelet poor plasma bycoagulation assay 26 s 24-35 Comprehensive metabolic panel - 12/01/16 20:00 Serum or plasma sodium measurement (moles/volume) 141 mmol/L 135-145 Serum or plasma potassium measurement (moles/volume) 4.4 mmol/L 3.6-5.0 Serum or plasma chloride measurement (moles/volume) 106 mmol/L 98-107 Carbon dioxide 23 mmol/L 21-32 Serum or plasma anion gap determination (moles/volume) 12 mmol/L 5-14 Serum or plasma urea nitrogen measurement (mass/volume) 34 mg/dL 7-18 Serum or plasma creatinine measurement (mass/volume) 0.97 mg/dL 0.60-1.30 Serum or plasma urea nitrogen/creatinine mass ratio 35 NRG Serum or plasma creatinine measurement with calculation of estimated glomerular filtration rate 60 NRG Serum or plasma glucose measurement (mass/volume) 56 mg/dL 70-105 Serum or plasma calcium measurement (mass/volume) 9.0 mg/dL 8.5-10.1 Serum or plasma total bilirubin measurement (mass/volume) 0.1 mg/dL 0.1-1.0 Serum or plasma alkaline phosphatase measurement (enzymatic activity/volume) 129 U/L 40-136 Serum or plasma aspartate aminotransferase measurement (enzymatic activity/volume) 13 U/L 5-34 Serum or plasma alanine aminotransferase measurement (enzymatic activity/volume) 10 U/L 0-55 Serum or plasma protein measurement (mass/volume) 6.6 g/dL 6.4-8.2 Serum or plasma albumin measurement (mass/volume) 3.3 g/dL 3.2-4.5 Magnesium - 12/01/16 20:00 Magnesium 2.5 mg/dL 1.8-2.4 Serum or plasma C reactive protein measurement (mass/volume) - 12/01/16 20:00 Serum or plasma C reactive protein measurement (mass/volume) 0.14 mg/dL 0.00-0.50 THYROID STIMULATING HORMONE - 12/01/16 20:00 THYROID STIMULATING HORMONE 1.96 u[iU]/mL 0.35-4.94 Serum or plasma thyroxine (T4) free measurement (mass/volume) - 12/01/16 20:00 Serum or plasma thyroxine (T4) free measurement (mass/volume) 1.21 ng/dL 0.70-1.48 Complete urinalysis with reflex to culture - 12/01/16 20:05 Urine color determination YELLOW NRG Urine clarity determination SLIGHTLY CLOUDY NRG Urine pH measurement by test strip 5 5-9 Specific gravity of urine by test strip 1.020 1.016-1.022 Urine protein assay by test strip, semi-quantitative 4+ NEGATIVE Urine glucose detection by automated test strip NEGATIVE NEGATIVE Erythrocytes detection in urine sediment by light microscopy 1+ NEGATIVE Urine ketones detection by automated test strip 1+ NEGATIVE Urine nitrite detection by test strip NEGATIVE NEGATIVE Urine total bilirubin detection by test strip NEGATIVE NEGATIVE Urine urobilinogen measurement by automated test strip (mass/volume) 1 mg/dL NORMAL Urine leukocyte esterase detection by dipstick 2+ NEGATIVE Automated urine sediment erythrocyte count by microscopy (number/high power field) [HPF] NRG Automated urine sediment leukocyte count by microscopy (number/high power field) [HPF] NRG Bacteria detection in urine sediment by light microscopy FEW NRG Squamous epithelial cells detection in urine sediment by light microscopy 5-10 NRG Crystals detection in urine sediment by light microscopy NONE NRG Casts detection in urine sediment by light microscopy NONE NRG Mucus detection in urine sediment by light microscopy NEGATIVE NRG Complete urinalysis with reflex to culture NO NRG Bacterial urine culture - 12/01/16 20:05 Bacterial urine culture NG NRG Capillary blood glucose measurement by glucometer (mass/volume) - 12/01/16 21:15 Capillary blood glucose measurement by glucometer (mass/volume) 81 mg/dL 70-110 Encounters ACCT No. Visit Date/Time Discharge Status Pt. Type Provider Facility Loc./Unit Complaint [id number] 08/09/2018 07:00:00 08/09/2018 23:59:59 CLS Outpatient THOMAS SHAW MD, FACC, FACP CCDS [facility] CARD CAD,CAROTID ARTERIAL DISEASE [id number] 08/02/2018 07:53:00 08/02/2018 23:59:59 CLS Outpatient VALERIA CORTES FACC, ALI FACP CCDS [facility] CARD CAD,CAROTID ARTERIAL DISEASE [id number] 01/22/2018 07:52:00 01/22/2018 23:59:59 CLS Outpatient VALERIA CORTES FACC, ALI FACP CCDS [facility] RAD PAIN AND SWELLING OF RIGHT LOWER LEG [id number] 12/01/2016 19:30:00 12/01/2016 21:22:00 DIS Emergency NAOMI CORTES, JESSICA Ordoñez [facility] ER SLURRED SPEECH/EYE SWELLING [id number] 08/15/2016 09:46:00 08/16/2016 09:30:00 DIS Outpatient ARNEL ZHOU [facility] CATH PAD,CLAUDICATION [id number] 04/17/2016 15:30:00 04/17/2016 16:16:00 DIS Outpatient DELPHINE LICONA DO [facility] REHAB NECK PAIN [id number] 04/07/2016 16:25:00 04/07/2016 17:00:00 DIS Outpatient DELPHINE LICONA DO [facility] REHAB NECK PAIN [id number] 03/27/2016 10:24:00 03/27/2016 12:26:00 DIS Outpatient VALERIA CORTES FACCTHOMAS FACP CCDS [facility] CR POST ACB [id number] 03/09/2016 16:12:00 03/09/2016 23:59:59 CLS Outpatient DELPHINE LICONA DO [facility] RAD NECK PAIN [id number] 02/28/2016 11:30:00 02/28/2016 23:59:59 CLS Preadmit PILLO FRANCOIS MD [facility] CARD PALPITATIONS,SYNCOPE [id number] 11/29/2015 11:26:00 02/27/2016 00:01:00 DIS Outpatient PILLO FRANCOIS MD [facility] CARD PALPITATIONS,SYNCOPE [id number] 02/17/2016 08:21:00 02/17/2016 23:59:59 CLS Outpatient PETR BOWMAN DO [facility] RAD OSTEOPOROSIS [id number] 02/04/2016 12:56:00 02/04/2016 23:59:59 CLS Outpatient PILLO FRANCOIS MD [facility] RAD NECK PAIN,BONE PAIN [id number] 01/16/2016 14:58:00 01/16/2016 23:59:59 CLS Outpatient OLIVIA SKY MD [facility] LAB INFECTION, ELEVATED WBC [id number] 01/12/2016 12:55:00 01/12/2016 23:59:59 CLS Outpatient NJ COOK [facility] RAD CAD,POST SURG CAB [id number] 01/11/2016 17:35:00 01/11/2016 23:59:59 CLS Outpatient OLIVIA SKY MD [facility] HH S/P CABG, DM, HTN [id number] 12/28/2015 08:07:00 12/28/2015 15:36:00 DIS Outpatient VALERIA CORTES FACC, THOMAS FLOR CCDS [facility] COPD,DM,SOB [id number] 12/20/2015 11:52:00 12/21/2015 11:50:00 DIS Inpatient JAH PORTER MD [facility] 4TH DEHYDRATION SYNCOPE HYPERGLYCEMIA EDWAR [id number] 12/02/2015 06:27:00 12/02/2015 08:45:00 DIS Outpatient ILA DAVALOS MD [facility] DYSPHASIA, FAMILY HISTORY OF COLON CANCER [id number] 11/30/2015 05:35:00 11/30/2015 14:09:00 DIS Outpatient ILA DAVALOS MD [facility] PREOP DYSPHAGIA FAMILY HISTORY OF COLON CANCER [id number] 07/08/2015 08:57:00 07/08/2015 23:59:59 CLS Outpatient ILA DAVALOS MD [facility] [id number] 07/05/2015 13:58:00 07/05/2015 23:59:59 CLS Outpatient USMAN FENG APRN [facility] RAD [id number] 05/17/2015 11:09:00 05/17/2015 23:59:59 CLS Outpatient CAITY TADEO [facility] QUICK [id number] 02/26/2015 09:11:00 02/26/2015 14:45:00 DIS Outpatient ILA DAVALOS MD [facility] [id number] 02/23/2015 12:07:00 02/23/2015 23:59:59 CLS Outpatient KATJA PIÑA DO [facility] [id number] 05/11/2014 14:50:00 05/11/2014 23:59:59 CLS Outpatient PILLO FRANCOIS MD [facility] RAD [id number] 05/02/2014 21:25:00 05/04/2014 11:35:00 DIS Inpatient PILLO FRANCOIS MD Via [address] [id number] 03/12/2014 13:54:00 03/12/2014 23:59:59 CLS Outpatient PILLO FRANCOIS MD [facility] RAD [id number] 02/02/2014 16:32:00 02/02/2014 23:59:59 CLS Outpatient PILLO FRANCOIS MD [facility] RT [id number] 12/31/2013 22:33:00 01/03/2014 11:56:00 DIS Inpatient PILLO FRANCOIS MD [facility] 4TH [id number] 12/11/2013 08:56:00 12/11/2013 23:59:59 CLS Outpatient PILLO FRANCOIS MD [facility] RAD [id number] 12/06/2018 12:00:00 PEN Preadmit PILLO FRANCOIS MD [facility] RT COPD [id number] 03/22/2012 09:02:00 Document Registration [id number] 03/21/2012 09:49:00 Document Registration [id number] 03/08/2012 07:46:00 Document Registration [id number] 03/04/2012 06:49:00 Document Registration [id number] 02/20/2012 03:41:00 Document Registration [id number] 01/13/2011 09:00:00 Document Registration [id number] 10/31/2010 13:58:00 Document Registration [id number] 10/14/2010 08:55:00 Document Registration
[2018-12-04] MEDS ORDERED: KETOROLAC 30 MG/ML VIAL IVP STA (09:43)
[2018-12-04] MEDS ORDERED: fentaNYL INJECTION 100 MCG/2 ML AMP IVP STA (09:43)
[2018-12-04] MEDS ORDERED: NS 100 ML (IVPB) BAG IV ONE (10:00)
[2018-12-04] MEDS ORDERED: HOLD METFORMIN - RECEIVED CONTRAST 20 ML VIAL IV SCH (10:00)
[2018-12-04] MEDS ORDERED: IOHEXOL 350 MG/ML 100 ML (OMNIPAQUE 350) VIAL IV ONE (10:00)
[2018-12-04 10:28] LABS: BASOPHILS # (AUTO) 0.2 10^3/uL (0.0-0.1); BASOPHILS % (AUTO) 1 % (0-10); EOSINOPHILS # (AUTO) 0.2 10^3/uL (0.0-0.3); EOSINOPHILS % (AUTO) 1 % (0-10); HEMATOCRIT 43 % (35-52); HEMOGLOBIN 14.7 G/DL (11.5-16.0); LYMPHOCYTES # (AUTO) 1.9 X 10^3 (1.0-4.0); LYMPHOCYTES % (AUTO) 8 % (12-44); MEAN CORPUSCULAR HEMOGLOBIN 29 PG (25-34); MEAN CORPUSCULAR HGB CONC 34 G/DL (32-36); MEAN CORPUSCULAR VOLUME 87 FL (80-99); MONOCYTES % (AUTO) 5 % (0-12); NEUTROPHILS # (AUTO) 18.8 X 10^3 (1.8-7.8); NEUTROPHILS % (AUTO) 86 % (42-75); PLATELET COUNT 373 10^3/uL (130-400); RED CELL DISTRIBUTION WIDTH 13.7 % (10.0-14.5); WHITE BLOOD COUNT 21.9 10^3/uL (4.3-11.0)
--- NOTE | 2018-12-04 10:30 | NUR ---
patient is resting quietly in room with verbalized improved pain. will continue to monitor
[2018-12-04 10:47] LABS: ALBUMIN 3.8 GM/DL (3.2-4.5); BILIRUBIN,TOTAL 0.3 MG/DL (0.1-1.0); CALCIUM 9.2 MG/DL (8.5-10.1); CREATININE SERUM 1.41 MG/DL (0.60-1.30); TOTAL PROTEIN 6.9 GM/DL (6.4-8.2)
[2018-12-04 10:51] LABS: BAND NEUTROPHILS 8 %; LYMPHOCYTES % (MANUAL) 10 %; MONOCYTES % (MANUAL) 6 %; NEUTROPHILS % (MANUAL) 76 %
[2018-12-04 10:52] LABS: RBC MORPH NORMAL; TOXIC GRANULATION/VACUOLAZATIO 1+
--- NOTE | 2018-12-04 11:00 | Diagnostic Imaging Report ---
INDICATION: Fall with rib pain. PA and lateral chest obtained at 10:44 a.m. FINDINGS: There is poststernotomy change. The heart is top limits normal in size. Lungs are clear. There is no pneumothorax or pleural fluid. IMPRESSION: Poststernotomy changes with borderline heart size. No acute process in the chest. Dictated by: Dictated on workstation # [id number]
--- NOTE | 2018-12-04 11:02 | Diagnostic Imaging Report ---
INDICATION: Fall with injury to left ribs AP, oblique, and lateral views of the left ribs are obtained. There are nondisplaced fractures of the left eighth, ninth, and 10th ribs. There is no underlying pneumothorax or pleural fluid. IMPRESSION: Nondisplaced fractures of the left eighth, ninth, and 10th ribs. No underlying pneumothorax or pleural fluid. Dictated by: Dictated on workstation # [id number]
[2018-12-04] MEDS ORDERED: fentaNYL INJECTION 100 MCG/2 ML AMP IVP ONE (11:15)
[2018-12-04] MEDS ORDERED: NS IV 1000 ML 1,000 ML IV ONE (11:19)
--- NOTE | 2018-12-04 11:22 | NUR ---
fentanyl given at this time for patient pain 01/15. will continue to monitor
--- NOTE | 2018-12-04 11:27 | Diagnostic Imaging Report ---
PROCEDURE: CT chest, abdomen, and pelvis with contrast. TECHNIQUE: Multiple contiguous axial images were obtained through the chest, abdomen, and pelvis after the administration of intravenous contrast. Auto Exposure Controls were utilized during the CT exam to meet ALARA standards for radiation dose reduction. INDICATION: Fall with pain in the left ribs. CT chest: Postop changes of median sternotomy are noted. No definite mediastinal hematoma or great vessel injury is seen. No pericardial or pleural fluid is detected. No parenchymal contusion or pneumothorax is detected. There are fractures involving the left posterior lateral eighth, ninth and 10th ribs. Fractures of the ninth and 10th ribs appear to be segmental. IMPRESSION: 1. Left posterior lateral eighth through 10th rib fractures. No pulmonary contusion or pneumothorax is detected. No other significant abnormality is seen. CT abdomen and pelvis: No focal liver or splenic laceration is seen. No perihepatic or perisplenic fluid is identified. The gallbladder is unremarkable. Pancreas unremarkable. There is no evidence of an adrenal hematoma or renal injury. Aorta is calcified but nonaneurysmal. The bowel loops are normal caliber. There is no ascites. The bladder is unremarkable. Bony structures appear to be intact. IMPRESSION: No evidence of abdominal or pelvic visceral injury. Dictated by: Dictated on workstation # [id number]
[2018-12-04] MEDS ORDERED: inSUlin (REGULAR) HUMAN 1 UNIT/0.01 ML (CHARGE PER UNIT) SC ONE (11:30)
--- NOTE | 2018-12-04 11:54 | NUR ---
called night warehouse selector for ICU room Addendum: 12/04/18 at 1156 by [email or web address] received assignment for ICU 1
[2018-12-04 12:14] LABS: BILIRUBIN,URINE NEGATIVE (NEGATIVE); CLARITY,URINE SLIGHTLY CLOUDY; COLOR,URINE YELLOW; GLUCOSE, URINE (UA) 3+ (NEGATIVE); KETONES,URINE NEGATIVE (NEGATIVE); LEUKOCYTE ESTERASE ,URINE 1+ (NEGATIVE); NITRITE,URINE NEGATIVE (NEGATIVE); PH,URINE 5 (5-9); PROTEIN,URINE 4+ (NEGATIVE); UROBILINOGEN,URINE 1 MG/DL (NORMAL)
--- OUTSIDE RECORDS SUMMARY | 2018-12-04 12:17 | XMS REPORT | Continuity of Care Document ---
Author Organization Unknown Address Unknown Allergies Active Description Code Type Severity Reaction Onset Reported/Identified Relationship to Patient Clinical Status Yes No Known Drug Allergies [id number] Drug Allergy Unknown N/A 07/10/2007 Medications There [...] 2 DIABETES MELLITUS WITHOUT COMPLIC 12/28/2015 VALERIA CORTES FACC, ALI FACP CCDS Ot E78.5 HYPERLIPIDEMIA, UNSPECIFIED 12/28/2015 VALERIA CORTES FACC, ALI FACP CCDS Ot I25.10 ATHSCL HEART DISEASE OF [place] CORONARY 12/28/2015 VALERIA CORTES FACC, ALI FACP CCDS Ot I25.84 CORONARY ATHEROSCLEROSIS DUE TO CALCIFIE 12/28/2015 VALERIA CORTES FACC, THOMAS FACP CCDS Ot J44.9 CHRONIC OBSTRUCTIVE PULMONARY DISEASE, U 12/28/2015 VALERIA CORTES FACC, ALI FACP CCDS Ot R55 SYNCOPE AND COLLAPSE 12/28/2015 VALERIA CORTES FACC, THOMAS FACP CCDS Ot Z72.0 TOBACCO USE 12/28/2015 VALERIA CORTES FACC, THOMAS FACP CCDS Ot Z79.4 PRESIDENT & FOUNDER (CURRENT) USE OF INSULIN 12/28/2015 VALERIA CORTES FACC, ALI FACP CCDS Ot Z79.899 OTHER FDC (CURRENT) DRUG THERAPY 01/06/2016 PILLO FRANCOIS MD [...] COOK Ot I25.10 ATHSCL HEART DISEASE OF [place] CORONARY 01/14/2016 NJ COOK BOOKING MANAGER Ot Z95.1 PRESENCE OF AORTOCORONARY BYPASS GRAFT 01/18/2016 OLIVIA SKY MD F Ot D72.829 ELEVATED WHITE BLOOD CELL COUNT, UNSPECI 01/20/2016 OLIVIA SKY MD Ot D72.829 ELEVATED WHITE BLOOD CELL COUNT, UNSPECI 02/04/2016 OLIVIA SKY MD Ot E11.9 TYPE 2 DIABETES MELLITUS WITHOUT COMPLIC 02/04/2016 OLIVIA SKY MD Ot I10 ESSENTIAL (PRIMARY) HYPERTENSION 02/04/2016 OLIVIA SKY MD F Ot Z48.812 ENCNTR FOR SURGICAL AFTCR FOLLOWING SURG 02/04/2016 OLIVIA SKY MD F Ot Z95.1 PRESENCE OF AORTOCORONARY BYPASS GRAFT 02/04/2016 NJ COOK Ot I25.10 ATHSCL HEART DISEASE OF [place] CORONARY 02/04/2016 NJ COOK BOOKING MANAGER Ot Z95.1 PRESENCE OF AORTOCORONARY BYPASS GRAFT [...] COOK Ot I25.10 ATHSCL HEART DISEASE OF [place] CORONARY 02/09/2016 NJ COOK Ot Z95.1 PRESENCE [...] COOK Ot I25.10 ATHSCL HEART DISEASE OF [place] CORONARY 03/09/2016 NJ COOK Ot Z95.1 PRESENCE [...] FOLLOWING SURG 03/09/2016 VALERIA CORTES FAC, [facility]I [facility] CCDS Ot Z95.1 PRESENCE OF AORTOCORONARY [...] COOK Ot I25.10 ATHSCL HEART DISEASE OF [place] CORONARY 08/15/2016 NJ COOK Ot Z95.1 PRESENCE [...] MELLITUS WITHOUT COMPLIC 08/21/2016 BAIMA, ARNEL L BOOKING MANAGER Ot I25.10 ATHSCL HEART DISEASE OF [place] CORONARY 08/21/2016 BAIMA, ARNEL L BOOKING MANAGER Ot I70.213 ATHSCL [place] ARTERIES OF [facility] 08/21/2016 BAIMA, ARNEL L BOOKING MANAGER Ot I70.92 CHRONIC TOTAL OCCLUSION OF ARTERY OF THE 08/21/2016 BAIMA ARNEL L BOOKING MANAGER Ot J44.9 CHRONIC OBSTRUCTIVE PULMONARY DISEASE, U 08/21/2016 BAIMA, ARNEL L BOOKING MANAGER Ot Z72.0 TOBACCO USE 08/21/2016 BAIMA, ARNEL L BOOKING MANAGER Ot Z79.4 FDC (CURRENT) USE OF INSULIN 08/21/2016 BAIMA, ARNEL L BOOKING MANAGER Ot Z79.899 OTHER FDC (CURRENT) DRUG THERAPY 08/21/2016 BAIMA, ARNEL L BOOKING MANAGER Ot Z95.1 PRESENCE OF AORTOCORONARY BYPASS GRAFT 08/26/2016 BAIMA ARNEL L BOOKING MANAGER Ot E11.9 TYPE 2 DIABETES MELLITUS WITHOUT COMPLIC 08/26/2016 BAIMA, ARNEL L BOOKING MANAGER Ot I25.10 ATHSCL HEART DISEASE OF [place] CORONARY 08/26/2016 BAIMA, ARNEL L BOOKING MANAGER Ot I70.213 ATHSCL [place] ARTERIES OF [facility] 08/26/2016 BAIMA, ARNEL L BOOKING MANAGER Ot I70.92 CHRONIC TOTAL OCCLUSION OF ARTERY OF THE 08/26/2016 BAIMA ARNEL L BOOKING MANAGER Ot J44.9 CHRONIC OBSTRUCTIVE PULMONARY DISEASE, U 08/26/2016 BAIMA, ARNEL L BOOKING MANAGER Ot Z72.0 TOBACCO USE 08/26/2016 BAIMA, ARNEL L BOOKING MANAGER Ot Z79.4 FDC (CURRENT) USE OF INSULIN 08/26/2016 BAIMA, ARNEL L BOOKING MANAGER Ot Z79.899 OTHER FDC (CURRENT) DRUG THERAPY 08/26/2016 BAIMA, ARNEL L BOOKING MANAGER Ot Z95.1 PRESENCE OF AORTOCORONARY BYPASS GRAFT 08/27/2016 BAIMA, ARNEL L BOOKING MANAGER Ot E11.9 TYPE 2 DIABETES MELLITUS WITHOUT COMPLIC 08/27/2016 BAIMA, ARNEL L BOOKING MANAGER Ot I25.10 ATHSCL HEART DISEASE OF [place] CORONARY 08/27/2016 BAIMA, ARNEL L BOOKING MANAGER Ot I70.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 08/27/2016 ROBERTARNEL CHEN BOOKING MANAGER Ot I70.92 CHRONIC TOTAL OCCLUSION OF ARTERY OF THE 08/27/2016 ROBERTARNEL CHEN Marisol BOOKING MANAGER Ot J44.9 CHRONIC OBSTRUCTIVE PULMONARY DISEASE, U 08/27/2016 ARNEL ZHOU BOOKING MANAGER Ot Z72.0 TOBACCO USE 08/27/2016 WINNIE ARNEL L BOOKING MANAGER Ot Z79.4 FDC (CURRENT) USE OF INSULIN 08/27/2016 WINNIE ARNEL Marisol RIOJASP Ot Z79.899 OTHER FDC (CURRENT) DRUG THERAPY 08/27/2016 ROBERTARNEL CHEN BOOKING MANAGER Ot Z95.1 PRESENCE OF AORTOCORONARY BYPASS GRAFT [...] SPEECH 12/01/2016 JESSICA SALGADO MD Ot Z79.02 FDC (CURRENT) USE OF ANTITHROMBOTI 12/01/2016 JESSICA SALGADO MD Ot Z79.4 FDC (CURRENT) USE OF INSULIN 12/01/2016 JESSICA SALGADO MD, Ot Z79.82 PRESIDENT & FOUNDER (CURRENT) USE OF ASPIRIN 12/05/2016 JESSICA SALGADO [...] SPEECH 12/05/2016 JESSICA SALGADO MD, Ot Z79.02 FDC (CURRENT) USE OF ANTITHROMBOTI 12/05/2016 JESSICA SALGADO MD, Ot Z79.4 PRESIDENT & FOUNDER (CURRENT) USE OF INSULIN 12/05/2016 JESSICA SALGADO MD, Ot Z79.82 FDC (CURRENT) USE OF ASPIRIN 01/23/2018 VALERIA CORTES FACC, THOMAS FACP CCDS Ot I25.10 ATHSCL HEART DISEASE OF [place] CORONARY 01/23/2018 VALERIA CORTES FACC, THOMAS FACP [...] CCDS Ot I25.10 ATHSCL HEART DISEASE OF [place] CORONARY 03/05/2018 VALERIA CORTES FACC, ALI FACP [...] CCDS Ot I25.10 ATHSCL HEART DISEASE OF [place] CORONARY 08/12/2018 VALERIA CORTES FACC, ALI FACP CCDS Ot I70.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 08/12/2018 VALERIA CORTES FACC, ALI FACP CCDS Ot I77.89 OTHER SPECIFIED DISORDERS OF ARTERIES AN 08/12/2018 VALERIA CORTES FACC, ALI FACP CCDS Ot J43.8 OTHER EMPHYSEMA 08/30/2018 VALERIA CORTES FACC, ALI FACP CCDS Ot E11.9 TYPE 2 DIABETES MELLITUS WITHOUT COMPLIC 08/30/2018 VALERIA CORTES FACC, ALI FACP CCDS Ot I25.10 ATHSCL HEART DISEASE OF [place] CORONARY 08/30/2018 VALERIA CORTES FACC, ALI FACP CCDS Ot I73.9 PERIPHERAL VASCULAR DISEASE, UNSPECIFIED 08/30/2018 VALERIA CORTES FACC, ALI FACP CCDS Ot I77.9 DISORDER OF ARTERIES AND ARTERIOLES, UNS 08/30/2018 VALERIA CORTES FACC, ALI FACP CCDS Ot J44.9 CHRONIC OBSTRUCTIVE PULMONARY DISEASE, U 09/04/2018 VALERIA CORTES FACC, ALI FACP CCDS Ot E11.9 TYPE 2 DIABETES MELLITUS WITHOUT COMPLIC 09/04/2018 VALERIA CORTES FACC, ALI FACP CCDS Ot I25.10 ATHSCL HEART DISEASE OF [place] CORONARY 09/04/2018 VALERIA CORTES FACC, ALI FACP [...] CCDS Ot I25.10 ATHSCL HEART DISEASE OF [place] CORONARY 09/19/2018 VALERIA CORTES FACC, ALI FACP [...] Status Pt. Type Provider Facility Loc./Unit Complaint [id number] 08/09/2018 07:00:00 08/09/2018 23:59:59 CLS Outpatient THOMAS SHAW MD, FACC, FACP CCDS [facility] CARD CAD,CAROTID ARTERIAL DISEASE [id number] 08/02/2018 07:53:00 08/02/2018 23:59:59 CLS Outpatient VALERIA CORTES FACC, ALI FACP CCDS [facility] CARD CAD,CAROTID ARTERIAL DISEASE [id number] 01/22/2018 07:52:00 01/22/2018 23:59:59 CLS Outpatient VALERIA CORTES FACC, ALI FACP CCDS [facility] RAD PAIN AND SWELLING OF RIGHT LOWER LEG [id number] 12/01/2016 19:30:00 12/01/2016 21:22:00 DIS Emergency NAOMI CORTES, JESSICA Ordoñez [facility] ER SLURRED SPEECH/EYE SWELLING [id number] 08/15/2016 09:46:00 08/16/2016 09:30:00 DIS Outpatient ARNEL ZHOU [facility] CATH PAD,CLAUDICATION [id number] 04/17/2016 15:30:00 04/17/2016 16:16:00 DIS Outpatient DELPHINE LICONA DO [facility] REHAB NECK PAIN [id number] 04/07/2016 16:25:00 04/07/2016 17:00:00 DIS Outpatient DELPHINE LICONA DO [facility] REHAB NECK PAIN [id number] 03/27/2016 10:24:00 03/27/2016 12:26:00 DIS Outpatient VALERIA CORTES FACCTHOMAS FACP CCDS [facility] CR POST ACB [id number] 03/09/2016 16:12:00 03/09/2016 23:59:59 CLS Outpatient DELPHINE LICONA DO [facility] RAD NECK PAIN [id number] 02/28/2016 11:30:00 02/28/2016 23:59:59 CLS Preadmit PILLO FRANCOIS MD [facility] CARD PALPITATIONS,SYNCOPE [id number] 11/29/2015 11:26:00 02/27/2016 00:01:00 DIS Outpatient PILLO FRANCOIS MD [facility] CARD PALPITATIONS,SYNCOPE [id number] 02/17/2016 08:21:00 02/17/2016 23:59:59 CLS Outpatient PETR BOWMAN DO [facility] RAD OSTEOPOROSIS [id number] 02/04/2016 12:56:00 02/04/2016 23:59:59 CLS Outpatient PILLO FRANCOIS MD [facility] RAD NECK PAIN,BONE PAIN [id number] 01/16/2016 14:58:00 01/16/2016 23:59:59 CLS Outpatient OLIVIA SKY MD [facility] LAB INFECTION, ELEVATED WBC [id number] 01/12/2016 12:55:00 01/12/2016 23:59:59 CLS Outpatient NJ COOK [facility] RAD CAD,POST SURG CAB [id number] 01/11/2016 17:35:00 01/11/2016 23:59:59 CLS Outpatient OLIVIA SKY MD [facility] HH S/P CABG, DM, HTN [id number] 12/28/2015 08:07:00 12/28/2015 15:36:00 DIS Outpatient VALERIA CORTES FACC, THOMAS FLOR CCDS [facility] COPD,DM,SOB [id number] 12/20/2015 11:52:00 12/21/2015 11:50:00 DIS Inpatient JAH PORTER MD [facility] 4TH DEHYDRATION SYNCOPE HYPERGLYCEMIA EDWAR [id number] 12/02/2015 06:27:00 12/02/2015 08:45:00 DIS Outpatient ILA DAVALOS MD [facility] DYSPHASIA, FAMILY HISTORY OF COLON CANCER [id number] 11/30/2015 05:35:00 11/30/2015 14:09:00 DIS Outpatient ILA DAVALOS MD [facility] PREOP DYSPHAGIA FAMILY HISTORY OF COLON CANCER [id number] 07/08/2015 08:57:00 07/08/2015 23:59:59 CLS Outpatient ILA DAVALOS MD [facility] [id number] 07/05/2015 13:58:00 07/05/2015 23:59:59 CLS Outpatient USMAN FENG APRN [facility] RAD [id number] 05/17/2015 11:09:00 05/17/2015 23:59:59 CLS Outpatient CAITY TADEO [facility] QUICK [id number] 02/26/2015 09:11:00 02/26/2015 14:45:00 DIS Outpatient ILA DAVALOS MD [facility] [id number] 02/23/2015 12:07:00 02/23/2015 23:59:59 CLS Outpatient KATJA PIÑA DO [facility] [id number] 05/11/2014 14:50:00 05/11/2014 23:59:59 CLS Outpatient PILLO FRANCOIS MD [facility] RAD [id number] 05/02/2014 21:25:00 05/04/2014 11:35:00 DIS Inpatient PILLO FRANCOIS MD Via [address] [id number] 03/12/2014 13:54:00 03/12/2014 23:59:59 CLS Outpatient PILLO FRANCOIS MD [facility] RAD [id number] 02/02/2014 16:32:00 02/02/2014 23:59:59 CLS Outpatient PILLO FRANCOIS MD [facility] RT [id number] 12/31/2013 22:33:00 01/03/2014 11:56:00 DIS Inpatient PILLO FRANCOIS MD [facility] 4TH [id number] 12/11/2013 08:56:00 12/11/2013 23:59:59 CLS Outpatient PILLO FRANCOIS MD [facility] RAD [id number] 12/06/2018 12:00:00 PEN Preadmit PILLO FRANCOIS MD [facility] RT COPD [id number] 03/22/2012 09:02:00 Document Registration [id number] 03/21/2012 09:49:00 Document Registration [id number] 03/08/2012 07:46:00 Document Registration [id number] 03/04/2012 06:49:00 Document Registration [id number] 02/20/2012 03:41:00 Document Registration [id number] 01/13/2011 09:00:00 Document Registration [id number] 10/31/2010 13:58:00 Document Registration [id number] 10/14/2010 08:55:00 Document Registration
[2018-12-04 12:24] LABS: RBC,URINE 0-2 /HPF
[2018-12-04 12:25] LABS: BACTERIA,URINE FEW /HPF
[2018-12-04 12:26] LABS: HYALINE CASTS, URINE 25-50 /LPF
[2018-12-04] MEDS ORDERED: inSUlin ASPART (NovoLOG) 1 UNIT/0.01 ML (CHARGE PER UNIT) ONE (12:58)
[2018-12-04] MEDS: NS IV 1000 ML 1,000 ML IV SCH ×2 (13:33→19:56)
[2018-12-04] MEDS ORDERED: RT-ALBUTEROL/IPRATROPIUM 3 ML (DUONEB) VIAL INH PRN (13:45)
[2018-12-04] MEDS ORDERED: METO-370 PO (13:46)
[2018-12-04] MEDS ORDERED: CLOP75TA69 PO (14:04)
[2018-12-04] MEDS ORDERED: ASPI-999 PO (14:04)
[2018-12-04] MEDS ORDERED: ATOR40TA70 PO (14:04)
--- NOTE | 2018-12-04 14:04 | NUR ---
Pt is healing from broken ribs following a fall. She expressed appreciation for spout liner helper's visit and support.
--- NOTE | 2018-12-04 14:10 | History & Physical-Hospitalist ---
History of Present Illness HPI/Chief Complaint Chief complaint: Fall with left sided rib fractures HPI: This is a 56yoWF clinic Pt of Dr. Sanchez with a PMH of diabetes mellitus- insulin dependent, COPD, and continued smoking who sustained a fall when she was trying to shave her legs in the shower this morning and has sustained three severe ribs fractures and was admitted to Dr. Haynes's trauma service and will require a thoracic epidural pain block to help with the severe pain. I have consulted Dr. Driver due to high risk for pneumonia. Smoking cessation was counseled. She does work in [employer] here at the [employer] at [employer] and she was getting ready for work when she sustained the fall. She does have a history of some recent falls and she is unclear why she falls she is just off balance. Pt has multiple risk factors for additional comorbidities so will need aggressive IS with pain control with the epidural by Dr. El anesthesia services in order to prevent further compromise of her respiratory system. Source: patient Exam Limitations: no limitations Date Seen 12/04/18 Time Seen by a Provider: 12:30 Attending Physician Phillip Sanchez MD PCP Phillip Sanchez MD Referring Physician Date of Admission December 04, 2018 at 12:08 Home Medications & Allergies Home Medications Reviewed patient Home Medication Reconciliation performed by pharmacy medication reconciliations page technician and/or nursing. Patients Allergies have been reviewed. Allergies Allergies Coded Allergies ciprofloxacin (Verified Allergy, Mild, redness and itching , 12/04/18) redness and itching at iv site Past Uyrvvnd-Bjodhy-Lvcjfp Hx Past Med/Social Hx: Reviewed Nursing Past Med/Soc Hx, Reviewed and Corrections made Patient Social History Marrital Status: Employed/Student: employed ([employer]) Alcohol Use: Denies Use Recreational Drug Use: No Smoking Status: Current Everyday Smoker Type Used: Cigarettes 2nd Hand Smoke Exposure: No Recent Foreign Travel: No Contact w/other who traveled: No Recent Hopitalizations: No Recent Infectious Disease Expo: No Immunizations Up To Date Tetanus Booster (TDap): Unknown Pediatric: No Date of Pneumonia Vaccine: Apr 02, 2013 Date of Influenza Vaccine: Apr 07, 2016 Seasonal Allergies Seasonal Allergies: No Past Medical History Surgeries: CABG, 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, Thyroidectomy, Vascular Surgery Respiratory: COPD Cardiac: Coronary Artery Disease Neurological: Neuropathy : No Reproductive: No Sexually Transmitted Disease: No HIV/AIDS: No Female Reproductive Disorders: Denies 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 Gastrointestinal: Gastroesophageal Reflux, Chronic Constipation Musculoskeletal: Degenerate Disk Disease Endocrine: Diabetes, Insulin dep, Hypothyroidsim Loss of Vision: Denies Hearing Impairment: Denies Psychosocial: Anxiety, Depression History of Blood Disorders: No Adverse Reaction to Blood [place]: No (has never had a transfusion) Family History Cancer G8 BROTHER, Onset:Unknown G8 BROTHER, Onset:Unknown Cancer of colon G8 BROTHER, Onset:Unknown Chest pain 19 MOTHER, Onset:Unknown Congestive heart failure 19 FATHER, Onset:60 years & older Family history: Alzheimer's disease 19 MOTHER, Onset:50's - 60 Family history: Arthritis 19 MOTHER, Onset:Unknown Family history: Asthma 19 FATHER, Onset:Unknown Family history: Cardiovascular disease 19 MOTHER, Onset:50's - 60 Family history: Coronary thrombosis 19 MOTHER, Onset:Unknown Family history: Diabetes mellitus 19 MOTHER, Onset:Unknown Family history: Hypertension 19 MOTHER, Onset:50's - 60 Family history: Thyroid disorder 19 MOTHER, Onset:50's - 60 Heart disease 19 MOTHER, Onset:50's - 60 Human immunodeficiency virus (HIV) seropositivity G8 BROTHER, Onset:40's - 50 Myocardial infarction 19 MOTHER, Onset:50's - 60 No Family History of: Abdominal aortic aneurysm Ozark's disease Alcoholism Aphasia Cataract Congenital heart disease Cystic fibrosis Dementia Dysphagia Family history: Allergy Family history: Breast disease Family history: Gastrointestinal disease Family history: Glaucoma Family history: Osteoporosis Headache Hearing loss Hereditary disease History of - anemia History of - disorder History of - respiratory disease History of drug abuse Hypercholesterolemia Infertile Kidney disease Malignant neoplasm of lung Parkinson's disease Prostate cancer Psychotic disorder Seizure disorder Stroke Tuberculosis Visual impairment Review of Systems Constitutional: see HPI EENTM: no symptoms reported Respiratory: dyspnea on exertion Cardiovascular: chest pain Gastrointestinal: no symptoms reported Genitourinary: no symptoms reported Musculoskeletal: no symptoms reported Skin: no symptoms reported Psychiatric/Neurological: No Symptoms Reported All Other Systems Reviewed Negative Unless Noted: Yes Physical Exam Physical Exam Vital Signs Vital Signs - First Documented 12/04/18 12/04/18 12/04/18 12/04/18 09:30 12:15 12:35 13:24 Temp 96.0 Pulse 63 Resp 18 B/P (MAP) 134/83 (100) Pulse Ox 100 O2 Delivery Room Air FiO2 21 Capillary Refill : Less Than 3 Seconds Height, Weight, BMI Height: 5'5.00" Weight: 123lbs. 0.0oz. 55.150273zc; 20.5 BMI Method:Stated General Appearance: WD/WN, Chronically ill, Moderate Distress, Thin Eyes: Right Eye Normal Inspection, Right Eye PERRL HEENT: PERRL/EOMI, Normal ENT Inspection, Pharynx Normal, Moist Mucous Membranes Neck: Full Range of Motion, Normal Inspection, Non Tender Respiratory: Chest Non Tender, Lungs Clear, No Accessory Muscle Use, No Respiratory Distress, Decreased Breath Sounds Cardiovascular: Regular Rate, Rhythm, No Edema, No Gallop, No JVD, No Murmur, Normal Peripheral Pulses Gastrointestinal: Normal Bowel Sounds, No Organomegaly, No Pulsatile Mass, Non Tender, Soft Back: Normal Inspection, No CVA Tenderness, No Vertebral Tenderness Extremity: Normal Capillary Refill, Normal Inspection, Normal Range of Motion, Non Tender, No Calf Tenderness, No Pedal Edema Neurologic/Psychiatric: Alert, Oriented x3, No Motor/Sensory Deficits, Normal Mood/Affect Skin: Normal Color, Warm/Dry Lymphatic: No Adenopathy Results Results/Procedures Labs Laboratory Tests 12/04/18 10:18 Patient resulted labs reviewed. Assessment/Plan Admission Diagnosis Assessment: s/p fall Left rib fractures acute requiring nerve block Smoker COPD Cervical spine disease Neuropathy DM OOC Plan: Pain control IS Consult Dr Driver Admission Status: Inpatient Order (span 2 midnights) Reason for Inpatient Admission: Severe rib fractures will require close monitoring and nerve block and close monitoring Diagnosis/Problems Diagnosis/Problems (1) Fall Status: Acute Qualifiers: Encounter type: initial encounter Qualified Codes: W19.XXXA - Unspecified fall, initial encounter (2) Multiple rib fractures Status: Acute Qualifiers: Encounter type: initial encounter Fracture type: closed Laterality: left Qualified Codes: S22.42XA - Multiple fractures of ribs, left side, initial encounter for closed fracture (3) COPD (chronic obstructive pulmonary disease) Qualifiers: COPD type: unspecified COPD Qualified Codes: J44.9 - Chronic obstructive pulmonary disease, unspecified (4) Smoker Status: Chronic (5) Diabetes mellitus Status: Chronic Qualifiers: Diabetes mellitus type: type 2 Diabetes mellitus finance consultant insulin use: with detention use Diabetes mellitus complication status: with circulatory complication Diabetes mellitus complication detail: with other circulatory complications Qualified Codes: E11.59 - Type 2 diabetes mellitus with other circulatory complications; Z79.4 - shelter (current) use of insulin (6) ROSA (acute kidney injury) Status: Acute (7) Syncope Status: Acute (8) Dehydration Status: Acute (9) Hyperlipidemia Status: Chronic Qualifiers: Hyperlipidemia type: mixed hyperlipidemia Qualified Codes: E78.2 - Mixed hyperlipidemia (10) CAD (coronary artery disease) Status: Chronic Qualifiers: Associated angina: without angina (11) PAD (peripheral artery disease) Status: Chronic TONG MAGALLON DO December 04, 2018 14:09
[2018-12-04] MEDS ORDERED: RT-ALBUINH IH (14:27)
[2018-12-04] MEDS ORDERED: TIOT4MIS2 IH (14:27)
--- NOTE | 2018-12-04 14:28 | NUR ---
SPOKE WITH THE PATIENT ABOUT HER MEDICATIONS. SHE HAS A LIST WITH HER BUT ADMITS SHE DOES NOT REALLY KNOW HER MEDICATIONS BY NAME. I UPDATED THE MED REC WITH HER LIST WELL COMPARING WITH THE EXT MED HX. SHE STATES SHE GETS HER INSULIN THROUGH THE [facility] IN [place], I VERIFIED WITH THEM THEY HAVE NOT FILLED HER INSULIN SINCE JUNE AND JULY. I ALSO NOTED THE PAST DUE FILL DATES ON SOME OF HER OTHER MEDICATIONS. I VERIFIED WITH [employer] THAT THE INFORMATION ON THE EXT MED HX WERE UP TO DATE. SHE JUST RECEIVED SOME SAMPLES OF INHALERS FROM DR. FRANCOIS'S OFFICE, I VERIFIED WITH THEM SHE RECEIVED ALBUTEROL HFA AND SPIRIVA 2.5 RESPIMAT. SHE TAKES ASPIRIN 81MG DAILY OTC.
--- NOTE | 2018-12-04 14:52 | CONSULTATION REPORT ---
DATE OF SERVICE: 12/04/2018 ATTENDING PRIMARY CARE PHYSICIAN: Dr. Phillip Sanchez. ADMITTING PHYSICIAN: Dr. Rivers. HISTORY OF PRESENT ILLNESS: The patient is a 58-year-old female who experienced a same level of fall in the bathtub today. She reports she slipped and hit the left side of her chest. She initially was short of breath and did experience chest pain and was brought to the Emergency Department. She did have a history of smoking as well as COPD. A three-view x-ray of the chest did show nondisplaced fractures of posterior ribs 8, 9 and 10. There is no pneumothorax. A chest and abdominal CT scan were also performed, which did not show any other abnormalities. She does have a significant amount of pain due to the fractured ribs. With her history of COPD and other medical comorbidities and increased risk of pulmonary splinting pneumonia, we will admit the patient to proceed with respiratory therapy, breathing treatments and incentive spirometer as well as adequate pain control. PAST MEDICAL HISTORY: Coronary artery disease, hypertension, hypercholesterolemia, peripheral vascular disease, gastroesophageal reflux disease, history of constipation, degenerative joint disease, hypothyroid, insulin-dependent diabetes, anxiety, depression. PAST SURGICAL HISTORY: Coronary artery bypass grafting, thyroidectomy. ALLERGIES: No known drug allergies. MEDICATIONS: Albuterol 2 puffs q.4 hours p.r.n., aspirin 81 mg daily, atorvastatin 40 mg daily, buspirone 5 mg b.i.d., Plavix 75 mg daily, gabapentin 100 mg daily, insulin 12 units t.i.d., Levemir insulin 15 units b.i.d., levothyroxine 175 mcg daily, metoprolol 50 mg daily, paroxetine 40 mg daily, ipratropium bromide 2 puffs daily. SOCIAL HISTORY: Previous smoker, 40 pack years. Negative alcohol. FAMILY HISTORY: Noncontributory. REVIEW OF SYSTEMS: This is a slightly thin female, who is awake and alert and does have pain in the left chest; however, in no acute distress. She is not experiencing any shortness of breath or difficulty in breathing. She does have chest pain especially in the left lateral and lower chest. No new cough or sputum production. No cardiac chest pain, palpitations, diaphoresis. No nausea, vomiting. No diarrhea, constipation. No fever, chills. No recent inadvertent weight loss. All other review of systems is negative. PHYSICAL EXAMINATION: VITAL SIGNS: Temperature 98, blood pressure 126/102, pulse 69, respirations 99% on room air. CHEST: Distant breath sounds and scattered wheezes bilaterally. Pain upon palpation of the left lateral thoracic wall. HEART: Regular. No murmurs. HEENT: No scleral icterus. NECK: No cervical lymphadenopathy. EXTREMITIES: No lower extremity edema. Negative Homans sign. ABDOMEN: Soft, nontender, nondistended. SKIN: Warm, dry. LABORATORY DATA: WBC 21.9, hemoglobin 14.7, hematocrit 43, platelets 373. Glucose 416, BUN 30, creatinine 1.41. Liver function enzymes, amylase and lipase are normal. Urine is positive for leukocyte esterase. ASSESSMENT AND PLAN: A 58-year-old female with a same level fall to the left lateral chest with fractures of ribs 8, 9 and 10. She does have COPD as well as a number of other medical comorbidities and is at high risk for pulmonary splinting and pneumonia. We will proceed with adequate pain control and aggressive pulmonary toilet, breathing treatments and incentive spirometer as well as early ambulation. We will also follow serial chest x-rays. Job ID: [id number] DocumentID: [id number] Dictated Date: 12/04/2018 14:35:18 Nut Roaster Helper Date: 12/04/2018 14:52:27 Dictated By: NAKUL YUEN MD [facility] CENTERBelkys
[2018-12-04] MEDS: fentaNYL INJECTION 100 MCG/2 ML AMP IVP PRN (15:00)
--- NOTE | 2018-12-04 15:28 | Progress Note-Standard ---
Standard Progress Note Progress Notes/Assess & Plan Date Seen by a Provider: December 04, 2018 Time Seen by a Provider: 13:15 Progress/Assessment & Plan Brief Anesthesia Note I spoke with Dr Haynes regarding her pain management. She takes Plavix so a thoracic epidural will not be an option for her to assist with pain management. For this reason, a full consultation was not completed. Final Diagnosis Multiple rib fracture s/p fall KERRY GRIFFITHS DO December 04, 2018 15:27
[2018-12-04] MEDS ORDERED: HYDROcodone/APAP 7.5 MG/325 MG (LORTAB, LORCET PLUS) TABLET PO PRN (15:30)
[2018-12-04] MEDS: inSUlin ASPART (NovoLOG) 1 UNIT/0.01 ML (CHARGE PER UNIT) SC SCH ×2 (16:25→21:12)
[2018-12-04] MEDS: IBUPROFEN 800 MG (MOTRIN) TAB PO SCH (16:25)
[2018-12-04] MEDS ORDERED: CIPROFLOXACIN IV 400MG/200ML 200 ML IV SCH (17:00)
[2018-12-04] MEDS ORDERED: diphenhydrAMINE 50 MG/ML INJ (BENADRYL) ONE (17:11)
[2018-12-04] MEDS ORDERED: diphenhydrAMINE 50 MG/ML INJ (BENADRYL) IVP ONE (17:15)
--- NOTE | 2018-12-04 17:42 | NUR ---
1715 PT C/O OF ITCHING AT IV SITE, REDNESS NOTED, CIPRO ABX STOPPED, DR YUEN NOTIFIED, NEW ORDERS RECEIVED. CIPRO ADDED AN ALLERGY TO PT'S MEDICAL RECORD.
[2018-12-04] MEDS: RT-ALBUTEROL/IPRATROPIUM 3 ML (DUONEB) VIAL INH SCH (18:58)
[2018-12-04] MEDS: HYDROcodone/APAP 7.5 MG/325 MG (LORTAB, LORCET PLUS) TABLET PO PRN (19:18)
[2018-12-04] MEDS: KETOROLAC 30 MG/ML VIAL IVP PRN (19:56)
[2018-12-04] MEDS: cefTRIAXone FOR IV USE 1,000 MG in WATER (STERILE) FOR INJECTION 10 ML IV SCH (20:48)
[2018-12-04] MEDS ORDERED: NON-FORMULARY MEDICATION 1 EA EA (Buspirone HCl 5 MG) PO SCH (21:00)
[2018-12-04] MEDS ORDERED: busPIRone 10 MG (BUSPAR) TAB ONE (21:06)
[2018-12-04] MEDS ORDERED: GABAPENTIN 100 MG (NEURONTIN) CAP ONE (21:06)
[2018-12-04] MEDS: GABAPENTIN 100 MG (NEURONTIN) CAP PO SCH (21:11)
[2018-12-05] VITALS (11 sets, daily range): BP systolic 116–198; BP diastolic 60–97
[2018-12-05] MEDS: fentaNYL INJECTION 100 MCG/2 ML AMP IVP PRN ×3 (00:21→20:07)
[2018-12-05] MEDS: HYDROcodone/APAP 7.5 MG/325 MG (LORTAB, LORCET PLUS) TABLET PO PRN ×3 (03:08→16:28)
[2018-12-05] MEDS: NS IV 1000 ML 1,000 ML IV SCH (03:09)
[2018-12-05] MEDS: KETOROLAC 30 MG/ML VIAL IVP PRN (03:23)
[2018-12-05 03:57] LABS: BASOPHILS # (AUTO) 0.1 10^3/uL (0.0-0.1); BASOPHILS % (AUTO) 1 % (0-10); EOSINOPHILS # (AUTO) 0.4 10^3/uL (0.0-0.3); EOSINOPHILS % (AUTO) 3 % (0-10); HEMATOCRIT 42 % (35-52); HEMOGLOBIN 13.8 G/DL (11.5-16.0); LYMPHOCYTES # (AUTO) 3.1 X 10^3 (1.0-4.0); LYMPHOCYTES % (AUTO) 24 % (12-44); MEAN CORPUSCULAR HEMOGLOBIN 29 PG (25-34); MEAN CORPUSCULAR HGB CONC 33 G/DL (32-36); MEAN CORPUSCULAR VOLUME 89 FL (80-99); MEAN PLATELET VOLUME 10.4 FL (7.4-10.4); MONOCYTES # (AUTO) 1.3 X 10^3 (0.0-1.0); MONOCYTES % (AUTO) 10 % (0-12); NEUTROPHILS # (AUTO) 8.1 X 10^3 (1.8-7.8); NEUTROPHILS % (AUTO) 63 % (42-75); PLATELET COUNT 271 10^3/uL (130-400); RED CELL DISTRIBUTION WIDTH 13.7 % (10.0-14.5)
--- NOTE | 2018-12-05 04:32 | Pulmonary Consultation ---
History of Present Illness History of Present Illness Date of Consultation 12/05/18 04:27 Time Seen by Provider: 04:27 Date of Admission History of Present Illness 56yo with hx of IDDM, COPD and current smoker presented to ED s/p fall while trying to shave legs while in the shower. She does not know how she fell. Pt was found to have 3 rib fractures and was admitted to Dr. Haynes for trauma. She has had other falls. 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 Anesthesia consulted for Epidural. I am consulted for pulmonary/ICU management. Allergies and Home Medications Allergies Coded Allergies: ciprofloxacin (Verified Allergy, Mild, redness and itching , 12/04/18) redness and itching at iv site Home Medications Albuterol Sulfate 1 Puff Puff, 2 PUFF IH Q4H PRN for SHORTNESS OF BREATH, (Reported) 1 PUFF = 90 MCG Aspirin 81 Mg Tab.chew, 81 MG PO DAILY, (Reported) Atorvastatin Calcium 40 Mg Tablet, 40 MG PO DAILY, (Reported) LAST FILLED #30 09-26-18 Buspirone HCl 5 Mg Tablet, 5 MG PO BID, (Reported) Clopidogrel Bisulfate 75 Mg Tablet, 75 MG PO DAILY, (Reported) LAST FILLED #30 10-21-18 Gabapentin 100 Mg Capsule, 100 MG PO HS, (Reported) LAST FILLED #30 09-26-18 Insulin Aspart 100 Unit/1 Ml Susp, 12 UNITS SQ TIDWM, (Reported) LAST FILLED #3 VIALS 07-30-18 Insulin Determir 1,000 Units/10 Ml Soln, 15 UNITS SQ BID, (Reported) LAST FILLED #3 VIALS 06-28-18 Levothyroxine Sodium 175 Mcg Tablet, 175 MCG PO DAILY, (Reported) Metoprolol Succinate 50 Mg Tab.er.24h, 50 MG PO DAILY, (Reported) Paroxetine HCl 40 Mg Tablet, 40 MG PO DAILY, (Reported) Tiotropium [place] 4 Gm Mist.inhal, 2 PUFF IH DAILY, (Reported) Past Hdfswrc-Jsfzdn-Nuqkmm Hx Past Med/Social Hx: Reviewed Nursing Past Med/Soc Hx, Reviewed and Corrections made Patient Social History Alcohol Use: Denies Use Recreational Drug Use: No Smoking Status: Current Everyday Smoker Type Used: Cigarettes 2nd Hand Smoke Exposure: No Recent Foreign Travel: No Contact w/Someone Who Travel: No Recent Infectious Disease Expo: No Recent Hopitalizations: No Physical Abuse: No Sexual Abuse: No Mistreated: No Fear: No Immunizations Up To Date Tetanus Booster (TDap): Unknown PED Vaccines UTD: No Date of Pneumonia Vaccine: Apr 02, 2013 Date of Influenza Vaccine: Apr 07, 2016 Seasonal Allergies Seasonal Allergies: No Past Medical History Surgeries: Yes (CERVICLE FUSION,LAP RENETTA,HYST.) CABG, 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, Thyroidectomy, Vascular Surgery Respiratory: Yes COPD Cardiac: Yes Coronary Artery Disease Neurological: Yes Neuropathy : No Reproductive Disorders: No Female Reproductive Disorders: Denies RADIO ARTIST 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 Sexually Transmitted Disease: No HIV/AIDS: No Genitourinary: No Gastrointestinal: No Gastroesophageal Reflux, Chronic Constipation Musculoskeletal: Yes (chronic neck pain) Degenerate Disk Disease Endocrine: Yes Diabetes, Insulin dep, Hypothyroidsim HEENT: No Loss of Vision: Denies Hearing Impairment: Denies Cancer: No Psychosocial: Yes Anxiety, Depression Integumentary: Yes (PREVIOUS ABCESSES) Blood Disorders: No Adverse Reaction/Blood Tranf: No (has never had a transfusion) Family Medical History Cancer G8 BROTHER, Onset:Unknown G8 BROTHER, Onset:Unknown Cancer of colon G8 BROTHER, Onset:Unknown Chest pain 19 MOTHER, Onset:Unknown Congestive heart failure 19 FATHER, Onset:60 years & older Family history: Alzheimer's disease 19 MOTHER, Onset:50's - 60 Family history: Arthritis 19 MOTHER, Onset:Unknown Family history: Asthma 19 FATHER, Onset:Unknown Family history: Cardiovascular disease 19 MOTHER, Onset:50's - 60 Family history: Coronary thrombosis 19 MOTHER, Onset:Unknown Family history: Diabetes mellitus 19 MOTHER, Onset:Unknown Family history: Hypertension 19 MOTHER, Onset:50's - 60 Family history: Thyroid disorder 19 MOTHER, Onset:50's - 60 Heart disease 19 MOTHER, Onset:50's - 60 Human immunodeficiency virus (HIV) seropositivity G8 BROTHER, Onset:40's - 50 Myocardial infarction 19 MOTHER, Onset:50's - 60 No Family History of: Abdominal aortic aneurysm [place]'s disease Alcoholism Aphasia Cataract Congenital heart disease Cystic fibrosis Dementia Dysphagia Family history: Allergy Family history: Breast disease Family history: Gastrointestinal disease Family history: Glaucoma Family history: Osteoporosis Headache Hearing loss Hereditary disease History of - anemia History of - disorder History of - respiratory disease History of drug abuse Hypercholesterolemia Infertile Kidney disease Malignant neoplasm of lung Parkinson's disease Prostate cancer Psychotic disorder Seizure disorder Stroke Tuberculosis Visual impairment Review of Systems Time Seen by Provider: 05:28 Constitutional: No: Fever, Chills, Sweats, Weakness, Malaise, Other Eyes: No: Pain, Vision change, Conjunctivae inflammation, Eyelid inflammation, Other, Redness ENT: Nose congestion; No: Ear pain, Ear discharge, Nose pain, Nose discharge, Mouth pain, Mouth swelling, Throat pain, Throat swelling, Other Respiratory: Cough, Dry, Shortness of breath, SOB with excertion, Pleuritic Pain; No: Wheezing, Hemoptysis Cardiovascular: Chest Pain; No: Palpitations, Orthopnea, Paroxysmal Noc. Dy spnea, Edema, Lt Headedness Gastrointestinal: No: Nausea, Vomiting, Abdominal Pain, Diarrhea, Constipation, Melena, Hematochezia, Other Genitourinary: No Dysuria, No Frequency, No Incontinence, No Hematuria, No Retention, No Other Sepsis Event Evaluation Height, Weight, BMI Height: 5'5.00" Weight: 123lbs. 0.0oz. 55.047326jp; 20.5 BMI Method:Stated Exam Exam Vital Signs Date Time Temp Pulse Resp B/P (MAP) Pulse Ox O2 Delivery O2 Flow Rate FiO2 12/05/18 04:00 98 Room Air 12/05/18 04:00 97.6 12/05/18 03:00 76 198/97 (130) 100 Room Air 12/05/18 02:00 66 143/69 (93) 97 Room Air 12/05/18 01:00 65 12/05/18 01:00 65 133/74 (93) 95 Room Air 12/05/18 00:00 75 142/79 (100) 95 Room Air 12/05/18 00:00 98 Room Air 12/04/18 23:59 97.2 12/04/18 23:00 62 146/77 (100) 96 Room Air 12/04/18 22:00 65 166/81 (109) 96 Room Air 12/04/18 21:00 67 112/62 (79) 97 Room Air 12/04/18 20:00 97.9 Room Air 12/04/18 20:00 98 Room Air 12/04/18 20:00 71 146/76 (99) 95 Room Air 12/04/18 19:01 95 Room Air 12/04/18 19:00 74 126/67 (86) 96 Room Air 12/04/18 19:00 74 12/04/18 18:00 71 148/82 (104) 100 Room Air 12/04/18 17:30 70 177/102 (127) 12/04/18 16:17 98 Room Air 12/04/18 16:00 70 17 108/72 (84) 97 Room Air 12/04/18 16:00 98.1 12/04/18 15:00 73 44 141/85 (103) 98 Room Air 12/04/18 14:30 73 22 92/54 (67) 96 Room Air 12/04/18 14:00 70 20 112/58 (76) 98 Room Air 12/04/18 13:45 70 16 98 Room Air 12/04/18 13:30 64 8 144/124 (131) 100 Room Air 12/04/18 13:24 69 99 21 12/04/18 13:24 99 Room Air 12/04/18 13:15 67 20 160/89 (112) 100 Room Air 12/04/18 13:00 65 12/04/18 13:00 65 20 126/102 (110) 100 Room Air 12/04/18 12:35 98 Room Air 12/04/18 12:15 98.0 66 20 126/102 (110) 100 12/04/18 09:30 96.0 63 18 134/83 (100) I & O 12/05/18 07:00 Intake Total 3250 ml Output Total 3 ml Balance 3247 ml Height & Weight Height: 5'5.00" Weight: 123lbs. 0.0oz. 55.366149ca; 20.5 BMI Method:Stated General Appearance: WD/WN, Chronically ill, Mild Distress, Thin HEENT: PERRL/EOMI, Normal ENT Inspection, Pharynx Normal, Moist Mucous Membranes Neck: Full Range of Motion, Normal Inspection, Non Tender Respiratory: Chest Non Tender, Lungs Clear, No Accessory Muscle Use, No Respiratory Distress, Decreased Breath Sounds Cardiovascular: Regular Rate, Rhythm, No Edema, No Gallop, No JVD, No Murmur, Normal Peripheral Pulses Capillary Refill: Less Than 3 Seconds Extremity: Normal Capillary Refill, Normal Inspection, Normal Range of Motion, Non Tender, No Calf Tenderness, No Pedal Edema Neurologic/Psychiatric: Alert, Oriented x3, No Motor/Sensory Deficits, Normal Mood/Affect Skin: Normal Color, Warm/Dry Lymphatic: No Adenopathy Results Lab Laboratory Tests 12/04/18 10:18 12/05/18 03:00 Assessment/Plan Assessment/Plan S/p Fall with 3 left rib fractures 8,9,10 -Pain control -IS -Anesthesia was consulted for nerve block however pt is on Plavix COPD with persistent tobacco use -Education -SVNS Dehydration with Acute renal failure -Monitor -Avoid NSAIDS -IVF DM -Monitor CHRISTAL PEACE DO December 05, 2018 04:32
[2018-12-05 04:42] LABS: ALBUMIN 3.4 GM/DL (3.2-4.5); BILIRUBIN,TOTAL 0.2 MG/DL (0.1-1.0); CALCIUM 8.2 MG/DL (8.5-10.1); CREATININE SERUM 1.38 MG/DL (0.60-1.30); MAGNESIUM 2.2 MG/DL (1.8-2.4); PHOSPHORUS 4.7 MG/DL (2.3-4.7); POTASSIUM 4.4 MMOL/L (3.6-5.0); TOTAL PROTEIN 6.3 GM/DL (6.4-8.2)
[2018-12-05] MEDS: inSUlin ASPART (NovoLOG) 1 UNIT/0.01 ML (CHARGE PER UNIT) SC SCH ×7 (05:26→22:38)
[2018-12-05] MEDS ORDERED: KCL 20 MEQ TAB (K-DUR) PO SCH (06:00)
[2018-12-05] MEDS ORDERED: POTASSIUM CL 10MEQ/50ML IVPB 50 ML IV SCH (06:00)
[2018-12-05] MEDS ORDERED: MAGNESIUM 1 GM/100 ML IVPB 100 ML IV SCH (06:00)
[2018-12-05] MEDS: PANTOPRAZOLE 40 MG (PROTONIX) TAB PO SCH (06:23)
[2018-12-05] MEDS: LEVOTHYROXINE 50 MCG (LEVOTHROID) TAB PO SCH (06:23)
[2018-12-05] MEDS: ENOXAPARIN 40 MG/0.4 ML (LOVENOX) SYR SC SCH (06:23)
[2018-12-05] MEDS: IBUPROFEN 800 MG (MOTRIN) TAB PO SCH ×3 (06:23→17:30)
--- NOTE | 2018-12-05 06:51 | Diagnostic Imaging Report ---
INDICATION: Followup rib fracture Portable chest 3:26 AM There are postop changes from CABG surgery. Heart size and pulmonary vascularity are normal. There is minimal left basilar atelectasis. Fractures of the left lower thoracic cage again noted. IMPRESSION: Left lower thoracic cage rib fractures. There is some associated left basilar atelectasis. No change from previous day. Dictated by: Dictated on workstation # [id number]
[2018-12-05] MEDS ORDERED: insulin ASPART vial for Pump (NovoLOG) SQ SCH (07:00)
[2018-12-05] MEDS: RT-ALBUTEROL/IPRATROPIUM 3 ML (DUONEB) VIAL INH SCH ×2 (07:44→19:28)
[2018-12-05] MEDS: UMECLIDINIUM BROMIDE (INCRUSE ELLIPTA) 7'S IH SCH (07:44)
[2018-12-05] MEDS ORDERED: NON-FORMULARY MEDICATION 1 EA EA (Levothyroxine Sodium 175 MCG) PO SCH (09:00)
[2018-12-05] MEDS ORDERED: NON-FORMULARY MEDICATION 1 EA EA (Tiotropium Bromide (Spiriva Respimat 2.5MCG/ACTUATION) 2 IH SCH (09:00)
[2018-12-05] MEDS ORDERED: NON-FORMULARY MEDICATION 1 EA EA (Paroxetine HCl 40 MG) PO SCH (09:00)
[2018-12-05] MEDS: ASPIRIN 81 MG CHEW (CHILDREN'S ASA) PO SCH (09:30)
[2018-12-05] MEDS: meTOproloL SUCCINATE 50 MG (TOPROL XL) TAB PO SCH (09:30)
[2018-12-05] MEDS: cefTRIAXone FOR IV USE 1,000 MG in WATER (STERILE) FOR INJECTION 10 ML IV SCH ×2 (09:30→22:37)
[2018-12-05] MEDS: PARoxetine 20 MG (PAXIL) TAB PO SCH (09:30)
[2018-12-05] MEDS: busPIRone 5 MG (BUSPAR) TAB PO SCH ×2 (09:30→22:36)
[2018-12-05] MEDS: LIDOCAINE 4% (SALONPAS) PATCH TOP SCH (09:31)
--- NOTE | 2018-12-05 10:13 | Progress Note-Hospitalist ---
Subjective HPI/CC On Admission Date Seen by Provider: December 05, 2018 Time Seen by Provider: 09:00 Chief complaint: Fall with left sided rib fractures HPI: This is a 56yoWF clinic Pt of Dr. Sanchez with a PMH of diabetes mellitus- insulin dependent, COPD, and continued smoking who sustained a fall when she was trying to shave her legs in the shower this morning and has sustained three severe ribs fractures and was admitted to Dr. Haynes's trauma service and will require a thoracic epidural pain block to help with the severe pain. I have consulted Dr. Driver due to high risk for pneumonia. Smoking cessation was counseled. 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 She does have a history of some recent falls and she is unclear why she falls she is just off balance. Pt has multiple risk factors for additional comorbidities so will need aggressive IS with pain control with the epidural by Dr. El anesthesia services in order to prevent further compromise of her respiratory system. Subjective/Events-last exam Ready to transfer to 4th floor Pain injection for the left rib fractures have helped tremendously by anesthesia services Nebulizer treatments are ordered IS is ordered No BM yet Blood sugars continue to be labile Restarted all home medications Will ambulate more on 4th floor and likely DC tomorrow Review of Systems General: Fatigue Pulmonary: Dyspnea Cardiovascular: Chest Pain Objective Exam Vital Signs Vital Signs Date Time Temp Pulse Resp B/P (MAP) Pulse Ox O2 Delivery O2 Flow Rate FiO2 12/05/18 20:00 98.6 74 20 137/71 (93) 95 Room Air 12/04/18 13:24 21 Capillary Refill : NONELess Than 3 Seconds General Appearance: No Apparent Distress, WD/WN, Chronically ill, Thin HEENT: PERRL/EOMI, Normal ENT Inspection, Pharynx Normal, Moist Mucous Membranes Neck: Full Range of Motion, Normal Inspection, Non Tender Respiratory: Chest Non Tender, Lungs Clear, No Accessory Muscle Use, No Respiratory Distress, Decreased Breath Sounds Cardiovascular: Regular Rate, Rhythm, No Edema, No Gallop, No JVD, No Murmur, Normal Peripheral Pulses Gastrointestinal: Normal Bowel Sounds, No Organomegaly, No Pulsatile Mass, Non Tender, Soft Back: Normal Inspection, No CVA Tenderness, No Vertebral Tenderness Extremity: Normal Capillary Refill, Normal Inspection, Normal Range of Motion, Non Tender, No Calf Tenderness, No Pedal Edema Neurologic/Psychiatric: Alert, Oriented x3, No Motor/Sensory Deficits, Normal Mood/Affect Skin: Normal Color, Warm/Dry Lymphatic: No Adenopathy Results/Procedures Lab Laboratory Tests 12/05/18 03:00 Patient resulted labs reviewed. Assessment/Plan Assessment and Plan Assess & Plan/Chief Complaint Assessment: s/p fall Left rib fractures acute requiring nerve block Smoker COPD Cervical spine disease Neuropathy DM OOC Plan: Pain control IS Consult Dr Driver is appreciated Move to 4 th floor Pain management Ambulate Stop smoking Check labs in am Diagnosis/Problems Diagnosis/Problems (1) Fall Status: Acute Qualifiers: Encounter type: initial encounter Qualified Codes: W19.XXXA - Unspecified fall, initial encounter (2) Multiple rib fractures Status: Acute Qualifiers: Encounter type: initial encounter Fracture type: closed Laterality: left Qualified Codes: S22.42XA - Multiple fractures of ribs, left side, initial encounter for closed fracture (3) COPD (chronic obstructive pulmonary disease) Qualifiers: COPD type: unspecified COPD Qualified Codes: J44.9 - Chronic obstructive pulmonary disease, unspecified (4) Smoker Status: Chronic (5) Diabetes mellitus Status: Chronic Qualifiers: Diabetes mellitus type: type 2 Diabetes mellitus assisted insulin use: wi th assisted use Diabetes mellitus complication status: with circulatory comp lication Diabetes mellitus complication detail: with other circulatory compli cations Qualified Codes: E11.59 - 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; Z79.4 - FDC (current) use of insulin (6) ROSA (acute kidney injury) Status: Acute (7) Syncope Status: Acute (8) Dehydration Status: Resolved Resolution Date/Time: 12/05/18 @ 20:41 (9) Hyperlipidemia Status: Chronic Qualifiers: Hyperlipidemia type: mixed hyperlipidemia Qualified Codes: E78.2 - Mixed hyperlipidemia (10) CAD (coronary artery disease) Status: Chronic Qualifiers: Associated angina: without angina (11) PAD (peripheral artery disease) Status: Chronic Clinical Quality Measures DVT/VTE Risk/Contraindication: Risk Factor Score Per Nursin RFS Level Per Nursing on Admit: 4+=Very High TONG MAGALLON DO December 05, 2018 10:13
--- NOTE | 2018-12-05 11:04 | NUR ---
1050 PT TO ROOM 427 VIA WC ACCOMPANIED BY THIS RN.
--- NOTE | 2018-12-05 11:11 | NUR ---
Pt is Advent and declines sacraments. Fellmongering Machine Operator provided blessing and prayer.
--- NOTE | 2018-12-05 17:18 | Progress Note (SOAP) ---
Subjective Date Seen by a Provider: December 05, 2018 Time Seen by a Provider: 17:00 Subjective/Events-last exam doing better. pain still present upon initiation of movement however mostly under control. tolerating diet. using IS Objective Exam Vital Signs Date Time Temp Pulse Resp B/P (MAP) Pulse Ox O2 Delivery O2 Flow Rate FiO2 12/05/18 16:00 99.2 70 20 151/68 (95) 98 Room Air 12/05/18 12:00 98 Room Air 12/05/18 12:00 97.5 68 18 150/71 (97) 100 Room Air 12/05/18 09:30 75 126/60 (82) 97 Room Air 12/05/18 08:30 98 Room Air 12/05/18 08:00 83 12/05/18 07:44 94 Room Air 12/05/18 07:00 71 12/05/18 07:00 71 12/05/18 06:00 66 141/69 (93) 99 Room Air 12/05/18 05:00 66 172/84 (113) 99 Room Air 12/05/18 04:00 65 116/66 (83) 94 Room Air 12/05/18 04:00 98 Room Air 12/05/18 04:00 97.6 12/05/18 03:00 76 198/97 (130) 100 Room Air 12/05/18 02:00 66 143/69 (93) 97 Room Air 12/05/18 01:00 65 12/05/18 01:00 65 133/74 (93) 95 Room Air 12/05/18 00:00 75 142/79 (100) 95 Room Air 12/05/18 00:00 98 Room Air 12/04/18 23:59 97.2 12/04/18 23:00 62 146/77 (100) 96 Room Air 12/04/18 22:00 65 166/81 (109) 96 Room Air 12/04/18 21:00 67 112/62 (79) 97 Room Air 12/04/18 20:00 97.9 Room Air 12/04/18 20:00 98 Room Air 12/04/18 20:00 71 146/76 (99) 95 Room Air 12/04/18 19:01 95 Room Air 12/04/18 19:00 74 126/67 (86) 96 Room Air 12/04/18 19:00 74 12/04/18 18:00 71 148/82 (104) 100 Room Air 12/04/18 17:30 70 177/102 (127) I & O 12/05/18 07:00 Intake Total 3650 ml Output Total 4 ml Balance 3646 ml Capillary Refill : NONELess Than 3 Seconds General Appearance: No Apparent Distress HEENT: PERRL/EOMI Neck: Full Range of Motion Respiratory: Chest Non Tender, Lungs Clear, Wheezing Cardiovascular: Regular Rate, Rhythm Gastrointestinal: normal bowel sounds Extremity: Normal Capillary Refill Neurologic/Psychiatric: Alert, Oriented x3 Skin: Normal Color Lymphatic: No Adenopathy Results Lab Laboratory Tests 12/04/18 21:06: Glucometer 217H 12/05/18 03:00: White Blood Count 13.0H, Red Blood Count 4.71, Hemoglobin 13.8, Hematocrit 42, Mean Corpuscular Volume 89, Mean Corpuscular Hemoglobin 29, Mean Corpuscular Hemoglobin Concent 33, Red Cell Distribution Width 13.7, Platelet Count 271, Mean Platelet Volume 10.4, Neutrophils (%) (Auto) 63, Lymphocytes (%) (Auto) 24, Monocytes (%) (Auto) 10, Eosinophils (%) (Auto) 3, Basophils (%) (Auto) 1, Neutrophils # (Auto) 8.1H, Lymphocytes # (Auto) 3.1, Monocytes # (Auto) 1.3H, Eosinophils # (Auto) 0.4H, Basophils # (Auto) 0.1, Sodium Level 135, Potassium Level 4.4, Chloride Level 104, Carbon Dioxide Level 19L, Anion Gap 12, Blood Urea Nitrogen 34H, Creatinine 1.38H, Estimat Glomerular Filtration Rate 39, BUN/Creatinine Ratio 25, Glucose Level 100, Calcium Level 8.2L, Corrected Calcium 8.7, Phosphorus Level 4.7, Magnesium Level 2.2, Total Bilirubin 0.2, Aspartate Amino Transf (AST/SGOT) 19, Alanine Aminotransferase (ALT/SGPT) 14, Alkaline Phosphatase 128, Total Protein 6.3L, Albumin 3.4 12/05/18 15:44: Glucometer 57*L Microbiology 12/04/18 MRSA Screen - Final, Complete MRSA not isolated 12/04/18 Urine Culture - Preliminary, Resulted Culture In Progress Assessment/Plan Assessment/Plan Assess & Plan/Chief Complaint s/p fall with left rib fx 8-10. ambulate, IS, breathing tx. pain control. Clinical Quality Measures DVT/VTE Risk/Contraindication: Risk Factor Score Per Nursin RFS Level Per Nursing on Admit: 4+=Very High NAKUL YUEN MD December 05, 2018 17:18
[2018-12-05] MEDS ORDERED: cefTRIAXone 1,000 MG IV (ROCEPHIN) VIAL ONE (22:28)
[2018-12-05] MEDS ORDERED: WATER (STERILE) FOR INJECTION 10 ML ONE (22:28)
[2018-12-05] MEDS: GABAPENTIN 100 MG (NEURONTIN) CAP PO SCH (22:36)
[2018-12-06] MEDS: HYDROcodone/APAP 7.5 MG/325 MG (LORTAB, LORCET PLUS) TABLET PO PRN ×2 (00:34→07:51)
[2018-12-06 00:55] VITALS: BP 153/72
[2018-12-06] MEDS: ENOXAPARIN 40 MG/0.4 ML (LOVENOX) SYR SC SCH (06:00)
[2018-12-06] MEDS: PANTOPRAZOLE 40 MG (PROTONIX) TAB PO SCH (06:01)
[2018-12-06] MEDS: LEVOTHYROXINE 50 MCG (LEVOTHROID) TAB PO SCH (06:01)
[2018-12-06] MEDS: IBUPROFEN 800 MG (MOTRIN) TAB PO SCH (06:01)
[2018-12-06] MEDS: inSUlin ASPART (NovoLOG) 1 UNIT/0.01 ML (CHARGE PER UNIT) SC SCH ×4 (06:02→09:41)
[2018-12-06 07:40] LABS: BASOPHILS # (AUTO) 0.1 10^3/uL (0.0-0.1); BASOPHILS % (AUTO) 1 % (0-10); EOSINOPHILS # (AUTO) 0.5 10^3/uL (0.0-0.3); EOSINOPHILS % (AUTO) 3 % (0-10); HEMATOCRIT 41 % (35-52); HEMOGLOBIN 13.4 G/DL (11.5-16.0); LYMPHOCYTES # (AUTO) 1.2 X 10^3 (1.0-4.0); LYMPHOCYTES % (AUTO) 8 % (12-44); MEAN CORPUSCULAR HEMOGLOBIN 29 PG (25-34); MEAN CORPUSCULAR HGB CONC 33 G/DL (32-36); MEAN CORPUSCULAR VOLUME 89 FL (80-99); MEAN PLATELET VOLUME 10.2 FL (7.4-10.4); MONOCYTES # (AUTO) 0.8 X 10^3 (0.0-1.0); MONOCYTES % (AUTO) 5 % (0-12); NEUTROPHILS # (AUTO) 13.5 X 10^3 (1.8-7.8); NEUTROPHILS % (AUTO) 84 % (42-75); PLATELET COUNT 286 10^3/uL (130-400); RED CELL DISTRIBUTION WIDTH 14.1 % (10.0-14.5); WHITE BLOOD COUNT 16.1 10^3/uL (4.3-11.0)
--- NOTE | 2018-12-06 07:45 | Pulmonary Progress Note ---
Subjective Time Seen by a Provider: 07:44 Subjective/Events-last exam Pt is doing better and she is walking halls. Sepsis Event Evaluation Height, Weight, BMI Height: 5'5.00" Weight: 125lbs. 0.0oz. 56.443612yq; 20.5 BMI Method:Stated Exam Exam Vital Signs Date Time Temp Pulse Resp B/P (MAP) Pulse Ox O2 Delivery O2 Flow Rate FiO2 12/06/18 00:55 97.3 75 22 153/72 (99) 93 Room Air 12/05/18 21:00 Room Air 12/05/18 20:00 98.6 74 20 137/71 (93) 95 Room Air 12/05/18 19:28 93 Room Air 12/05/18 16:00 99.2 70 20 151/68 (95) 98 Room Air 12/05/18 12:00 98 Room Air 12/05/18 12:00 97.5 68 18 150/71 (97) 100 Room Air 12/05/18 09:30 75 126/60 (82) 97 Room Air 12/05/18 08:30 98 Room Air 12/05/18 08:00 83 12/05/18 07:44 94 Room Air I & O 12/06/18 07:00 Intake Total 3130 ml Balance 3130 ml Height & Weight Height: 5'5.00" Weight: 125lbs. 0.0oz. 56.016523cs; 20.5 BMI Method:Stated General Appearance: No Apparent Distress, WD/WN, Chronically ill, Thin HEENT: PERRL/EOMI, Normal ENT Inspection, Pharynx Normal, Moist Mucous Membranes Neck: Full Range of Motion, Normal Inspection, Non Tender Respiratory: Chest Non Tender, Lungs Clear, No Accessory Muscle Use, No Respiratory Distress, Decreased Breath Sounds Cardiovascular: Regular Rate, Rhythm, No Edema, No Gallop, No JVD, No Murmur, Normal Peripheral Pulses Capillary Refill: Less Than 3 Seconds Gastrointestinal: normal bowel sounds Extremity: Normal Capillary Refill, Normal Inspection, Normal Range of Motion, Non Tender, No Calf Tenderness, No Pedal Edema Neurologic/Psychiatric: Alert, Oriented x3, No Motor/Sensory Deficits, Normal Mood/Affect Skin: Normal Color, Warm/Dry Lymphatic: No Adenopathy Results Lab Laboratory Tests 12/04/18 10:18 12/05/18 03:00 12/06/18 07:35 Assessment/Plan Assessment/Plan S/p Fall with 3 left rib fractures 8,9,10 -Pain control -IS -Anesthesia was consulted for nerve block however pt is on Plavix COPD with persistent tobacco use -Education -SVNS Dehydration with Acute renal failure -Monitor -Avoid NSAIDS -IVF DM -Monitor CHRISTAL PEACE DO December 06, 2018 07:45
[2018-12-06] MEDS: RT-ALBUTEROL/IPRATROPIUM 3 ML (DUONEB) VIAL INH SCH (07:55)
[2018-12-06] MEDS: UMECLIDINIUM BROMIDE (INCRUSE ELLIPTA) 7'S IH SCH (07:57)
[2018-12-06 08:00] VITALS: BP 139/65
[2018-12-06 08:00] LABS: ALBUMIN 3.5 GM/DL (3.2-4.5); BILIRUBIN,TOTAL 0.3 MG/DL (0.1-1.0); CALCIUM 8.3 MG/DL (8.5-10.1); CREATININE SERUM 1.08 MG/DL (0.60-1.30); POTASSIUM 4.9 MMOL/L (3.6-5.0); TOTAL PROTEIN 6.6 GM/DL (6.4-8.2)
[2018-12-06] MEDS ORDERED: cefTRIAXone FOR IV USE 1,000 MG in WATER (STERILE) FOR INJECTION 10 ML IV SCH (09:00)
[2018-12-06] MEDS: busPIRone 5 MG (BUSPAR) TAB PO SCH (09:36)
[2018-12-06] MEDS: PARoxetine 20 MG (PAXIL) TAB PO SCH (09:37)
[2018-12-06] MEDS: meTOproloL SUCCINATE 50 MG (TOPROL XL) TAB PO SCH (09:37)
[2018-12-06] MEDS: ASPIRIN 81 MG CHEW (CHILDREN'S ASA) PO SCH (09:37)
[2018-12-06] MEDS: LIDOCAINE 4% (SALONPAS) PATCH TOP SCH (09:38)
[2018-12-06] MEDS ORDERED: OXYC1TAB12 PO (10:53)
[2018-12-06] MEDS ORDERED: CEFD300C3 PO (10:53)
--- NOTE | 2018-12-06 10:54 | Discharge Summary-Hospitalist ---
Diagnosis/Chief Complaint Date of Admission December 04, 2018 at 12:08 Date of Discharge Discharge Date: December 06, 2018 Admission Diagnosis Assessment: s/p fall Left rib fractures acute requiring nerve block Smoker COPD Cervical spine disease Neuropathy DM OOC Plan: Pain control IS Consult Dr Driver Discharge Diagnosis (1) Atelectasis, left Status: Acute (2) Fall Status: Acute (3) Multiple rib fractures Status: Acute (4) COPD (chronic obstructive pulmonary disease) Status: Chronic (5) Smoker Status: Chronic (6) Diabetes mellitus Status: Chronic (7) ROSA (acute kidney injury) Status: Acute (8) Syncope Status: Acute (9) Dehydration Status: Resolved (10) Hyperlipidemia Status: Chronic (11) CAD (coronary artery disease) Status: Chronic (12) PAD (peripheral artery disease) Status: Chronic Discharge Summary Discharge Physical Exam Allergies: Coded Allergies: ciprofloxacin (Verified Allergy, Mild, redness and itching , 12/04/18) redness and itching at iv site Vitals & I&Os Vital Signs Date Time Temp Pulse Resp B/P (MAP) Pulse Ox O2 Delivery O2 Flow Rate FiO2 12/06/18 08:00 96.8 73 18 139/65 (89) 94 Room Air 12/04/18 13:24 21 General Appearance: No Apparent Distress, WD/WN Respiratory: Chest Non Tender, No Accessory Muscle Use, No Respiratory Distress, Crackles Cardiovascular: Regular Rate, Rhythm, No Edema, No Gallop, No JVD, No Murmur, Normal Peripheral Pulses Neurologic/Psychiatric: Alert, Oriented x3, No Motor/Sensory Deficits, Normal Mood/Affect Hospital Course Was the Problem List Reviewed?: Yes Hospital course: Patient had an uneventful hospital course after she was admitted after a severe fall in the shower sustaining multiple left-sided rib fractures. She has a past medical history of COPD and continues to smoke so she was very high risk for pneumonia and respiratory failure. Dr. Driver was consulted. Chest x-ray did show left-sided atelectasis likely an early onset pneumonia so she was empirically placed on Rocephin originally for the abnormal UA which showed 3 isolates that was shifted to Omnicef at discharge to cover for any type of left-sided Early pneumonia for the atelectasis. She will use incentive spirometer on a regular basis at home. Smoking cessation was counse led. Home meds for restarted and diabetes mellitus [id number] was managed with insulin regimen. Overall she did very well and she was in agreement and requested discharge she was close follow-up with Dr. Sanchez office. Labs (last 24 hrs) Laboratory Tests 12/05/18 15:44: Glucometer 57*L 12/05/18 21:04: Glucometer 104 12/06/18 05:42: Glucometer 203H 12/06/18 07:35: White Blood Count 16.1H, Red Blood Count 4.57, Hemoglobin 13.4, Hematocrit 41, Mean Corpuscular Volume 89, Mean Corpuscular Hemoglobin 29, Mean Corpuscular Hemoglobin Concent 33, Red Cell Distribution Width 14.1, Platelet Count 286, Mean Platelet Volume 10.2, Neutrophils (%) (Auto) 84H, Lymphocytes (%) (Auto) 8L , Monocytes (%) (Auto) 5, Eosinophils (%) (Auto) 3, Basophils (%) (Auto) 1, Neutrophils # (Auto) 13.5H, Lymphocytes # (Auto) 1.2, Monocytes # (Auto) 0.8, Eosinophils # (Auto) 0.5H, Basophils # (Auto) 0.1, Sodium Level 134L, Potassium Level 4.9, Chloride Level 106, Carbon Dioxide Level 21, Anion Gap 7, Blood Urea Nitrogen 26H, Creatinine 1.08, Estimat Glomerular Filtration Rate 52, BUN/Creatinine Ratio 24, Glucose Level 282H, Calcium Level 8.3L, Corrected Calcium 8.7, Total Bilirubin 0.3, Aspartate Amino Transf (AST/SGOT) 23, Alanine Aminotransferase (ALT/SGPT) 15, Alkaline Phosphatase 138H, Total Protein 6.6, Albumin 3.5 Microbiology 12/04/18 MRSA Screen - Final, Complete MRSA not isolated 12/04/18 Urine Culture - Final, Complete 3 or more isolates Patient resulted labs reviewed. Pending Labs Laboratory Tests 12/06/18 05:42: Glucometer 203 12/06/18 07:35: White Blood Count 16.1, Red Blood Count 4.57, Hemoglobin 13.4, Hematocrit 41, Mean Corpuscular Volume 89, Mean Corpuscular Hemoglobin 29, Mean Corpuscular Hemoglobin Concent 33, Red Cell Distribution Width 14.1, Platelet Count 286, Mean Platelet Volume 10.2, Neutrophils (%) (Auto) 84, Lymphocytes (%) (Auto) 8, Monocytes (%) (Auto) 5, Eosinophils (%) (Auto) 3, Basophils (%) (Auto) 1, Neutrophils # (Auto) 13.5, Lymphocytes # (Auto) 1.2, Monocytes # (Auto) 0.8, Eosinophils # (Auto) 0.5, Basophils # (Auto) 0.1, Sodium Level 134, Potassium Level 4.9, Chloride Level 106, Carbon Dioxide Level 21, Anion Gap 7, Blood Urea Nitrogen 26, Creatinine 1.08, Estimat Glomerular Filtration Rate 52, BUN/Creatinine Ratio 24, Glucose Level 282, Calcium Level 8.3, Corrected Calcium 8.7, Total Bilirubin 0.3, Aspartate Amino Transf (AST/SGOT) 23, Alanine Aminotransferase (ALT/SGPT) 15, Alkaline Phosphatase 138, Total Protein 6.6, A lbumin 3.5 Discussion & Recommendations Discharge Planning: <30 minutes discharge planning Discharge Home Medications: Active Scripts Active Percocet 10-325 mg Tablet (Oxycodone HCl/Acetaminophen) 1 Each Tablet 1 Tab PO Q4H PRN MDD 3 TABS 7 Days Cefdinir 300 Mg Capsule 300 Mg PO BID Reported Spiriva Respimat 2.5MCG/ACTUATION (Tiotropium [place]) 4 Gm Mist.inhal 2 Puff IH DAILY Proair Hfa (Albuterol Sulfate) 1 Puff Puff 2 Puff IH Q4H PRN 1 PUFF = 90 MCG Aspirin 81 Mg Tab.chew 81 Mg PO DAILY Atorvastatin Calcium 40 Mg Tablet 40 Mg PO DAILY LAST FILLED #30 09-26-18 Plavix (Clopidogrel Bisulfate) 75 Mg Tablet 75 Mg PO DAILY LAST FILLED #30 10-21-18 Metoprolol Succinate 50 Mg Tab.er.24h 50 Mg PO DAILY Levemir (Insulin Determir) 1,000 Units/10 Ml Soln 15 Units SQ BID LAST FILLED #3 VIALS 06-28-18 Novolog (Insulin Aspart) 100 Unit/1 Ml Susp 12 Units SQ TIDWM LAST FILLED #3 VIALS 07-30-18 Buspirone HCl 5 Mg Tablet 5 Mg PO BID Gabapentin 100 Mg Capsule 100 Mg PO HS LAST FILLED #30 09-26-18 Levothyroxine Sodium 175 Mcg Tablet 175 Mcg PO DAILY Paroxetine HCl 40 Mg Tablet 40 Mg PO DAILY Instructions to patient/family Please see electronic discharge instructions given to patient. Clinical Quality Measures DVT/VTE Risk/Contraindication: Risk Factor Score Per Nursin RFS Level Per Nursing on Admit: 4+=Very High Problem Qualifiers (1) Fall: Encounter type: initial encounter Qualified Codes: W19.XXXA - Unspecified fall, initial encounter (2) Multiple rib fractures: Encounter type: initial encounter Fracture type: closed Laterality: left Qualified Codes: S22.42XA - Multiple fractures of ribs, left side, initial encounter for closed fracture (3) COPD (chronic obstructive pulmonary disease): COPD type: unspecified COPD Qualified Codes: J44.9 - Chronic obstructive pulmonary disease, unspecified (4) Diabetes mellitus: Diabetes mellitus type: type 2 Diabetes mellitus medical terminologist insulin use: with medical terminologist use Diabetes mellitus complication status: with circulatory complication Diabetes mellitus complication detail: with other circulatory complications Qualified Codes: E11.59 - Type 2 diabetes mellitus with other circulatory complications; Z79.4 - long-term (current) use of insulin (5) Hyperlipidemia: Hyperlipidemia type: mixed hyperlipidemia Qualified Codes: E78.2 - Mixed hyperlipidemia (6) CAD (coronary artery disease): Associated angina: without angina TONG MAGALLON DO December 06, 2018 10:54
[2018-12-06 11:17] VITALS: BP 139/65
--- NOTE | 2018-12-06 13:04 | Diagnostic Imaging Report ---
EXAMINATION: Chest radiograph, portable AP view. DATE: December 06, 2018 at 0403 hours. INDICATION: 58-year-old female, history of rib fractures. COMPARISON: December 05, 2018. FINDINGS: There is cervical spine hardware. There are median sternotomy wires. Stable overall appearance of the cardiomediastinal silhouette. There is no identified pneumothorax. There are streaky opacities in the left lung base which are unchanged. There are mild streaky opacities in the right lung base which are essentially unchanged. IMPRESSION: 1. Mild streaky opacities in the lung bases which may relate to atelectasis and/or infiltrate and are unchanged. 2. No new focal airspace consolidation. Dictated by: Dictated on workstation # [id number]
== END 2018-12-06 11:17 | disposition home or self-care (01) | DRG 184 ==
LOC: EDUNIT# 09:17 → ER 09:18 → ICU 12:08 → 4TH 12-05 11:05
PROVIDERS: ADMIT Surgery; ATTEND Internal Medicine
DX: S22.42XA Multiple fractures of ribs, left side, initial encounter for closed fracture (principal); J98.11 Atelectasis; N17.9 Acute kidney failure, unspecified; E86.0 Dehydration; E11.51 Type 2 diabetes mellitus with diabetic peripheral angiopathy without gangrene; E11.40 Type 2 diabetes mellitus with diabetic neuropathy, unspecified; E11.65 Type 2 diabetes mellitus with hyperglycemia; J44.9 Chronic obstructive pulmonary disease, unspecified; F17.210 Nicotine dependence, cigarettes, uncomplicated; E89.0 Postprocedural hypothyroidism; I25.10 Atherosclerotic heart disease of native coronary artery without angina pectoris; K21.9 Gastro-esophageal reflux disease without esophagitis; K59.09 Other constipation; F41.9 Anxiety disorder, unspecified; F32.9 Major depressive disorder, single episode, unspecified; M50.30 Other cervical disc degeneration, unspecified cervical region; E78.2 Mixed hyperlipidemia; I73.9 Peripheral vascular disease, unspecified; Z79.4 Long term (current) use of insulin; Z95.1 Presence of aortocoronary bypass graft; W18.2XXA Fall in (into) shower or empty bathtub, initial encounter; Y92.002 Bathroom of unspecified non-institutional (private) residence as the place of occurrence of the external cause
CPT/HCPCS: 36415; 71045; 71046; 71100; 71260; 74177; 80053; 81000; 82150; 82962; 83690; 83735; 84100; 85007; 85025; 85027; 85610; 85730; 87081; 87088; 94010; 94640; 94664; 94760; 96361; 96374; 96375; 96376

== ENCOUNTER → 2018-12-17 | Outpatient (CLI) | payer OTHER ==
[~2018-12-17] MED LIST changes: +CEFD300C3 PO; +CLOP75TA69 PO; +METO-370 PO; +OXYC1TAB12 PO; +TIOT4MIS2 IH
--- NOTE | 2018-12-17 19:09 | Diagnostic Imaging Report ---
EXAMINATION: PA and lateral chest at 3:45 p.m. INDICATION: Pneumonia. FINDINGS: There is a better inspiratory effort on this study than on the prior exam of 12/06/2018. Allowing for this technical factor the heart is mildly enlarged but stable in size when compared to the prior study. The sternotomy wires and surgical clips noted previously are again evident and no different. The previous study did note streaky densities in both lung bases and raised the question of atelectasis and/or infiltrate. On this exam the density in the left lung base has increased. I do suspect that there is now pneumonia, atelectasis and fluid involving the left lower lobe. The right lung base is better aerated. The upper lungs remain clear. The mediastinum is not widened. The osseous structures are intact. IMPRESSION: There is left lower lobe pneumonia/atelectasis and a small left pleural effusion. A followup exam would be recommended for continued evaluation. Dictated by: Dictated on workstation # [id number]
== END ==
LOC: RAD 15:33
PROVIDERS: ATTEND Internal Medicine
DX: J44.9 Chronic obstructive pulmonary disease, unspecified (principal); J18.9 Pneumonia, unspecified organism; J90 Pleural effusion, not elsewhere classified
CPT/HCPCS: 71046

== ENCOUNTER → 2018-12-25 | Outpatient (CLI) | payer OTHER ==
--- NOTE | 2018-12-25 13:16 | Diagnostic Imaging Report ---
INDICATION: Fractures, pneumonia. FINDINGS: Sternal wire is midline. Left basilar infiltrate or atelectasis as well as adjacent pleural fluid have improved. There is no pneumothorax. There is no adverse development. IMPRESSION: Resolving left basilar pleural parenchymal opacity with no adverse change. Dictated by: Dictated on workstation # [id number]
== END ==
LOC: RAD 08:37
PROVIDERS: ATTEND Physician Assistant
DX: J18.9 Pneumonia, unspecified organism (principal); S22.42XA Multiple fractures of ribs, left side, initial encounter for closed fracture; Z98.890 Other specified postprocedural states
CPT/HCPCS: 71046

== ENCOUNTER → 2018-12-31 | Outpatient (CLI) | payer OTHER ==
--- NOTE | 2018-12-31 15:14 | Diagnostic Imaging Report ---
INDICATION: Followup rib fracture and pneumonia. TIME OF EXAM: 2:07 p.m. COMPARISON: Correlation is made with prior study from 12/25/2018. FINDINGS: Changes of median sternotomy are noted. There is improved aeration in the left base since prior study. No residual infiltrate is seen. Left-sided 7th through 10th rib fractures are again noted. There is some sclerosis at the fracture site, suggestive of healing, although fracture lines remain visible. There is no pneumothorax. Postop changes of lower cervical ACDF are seen. IMPRESSION: 1. Resolution of left basilar pneumonia/atelectasis. 2. Left-sided rib fractures show some mild healing but fracture lines remain visible. Dictated by: Dictated on workstation # [id number]
== END ==
LOC: RAD 13:56
PROVIDERS: ATTEND Physician Assistant
DX: S22.42XD Multiple fractures of ribs, left side, subsequent encounter for fracture with routine healing (principal); J18.9 Pneumonia, unspecified organism
CPT/HCPCS: 71101

== ENCOUNTER 2019-07-28 10:53 | Emergency (ER) | payer OTHER ==
[~2019-07-28] VITALS: Ht 165 cm; Wt 56.0 kg
[~2019-07-28 10:53] MED LIST changes: -METO-370 PO; -METO-387 PO; +METO50TA7 PO; +MTP25TSR PO
[2019-07-28 13:27] LABS: BASOPHILS # (AUTO) 0.1 10^3/uL (0.0-0.1); BASOPHILS % (AUTO) 1 % (0-10); EOSINOPHILS # (AUTO) 0.1 10^3/uL (0.0-0.3); EOSINOPHILS % (AUTO) 0 % (0-10); HEMATOCRIT 41 % (35-52); HEMOGLOBIN 13.4 G/DL (11.5-16.0); LYMPHOCYTES # (AUTO) 1.4 X 10^3 (1.0-4.0); LYMPHOCYTES % (AUTO) 12 % (12-44); MEAN CORPUSCULAR HEMOGLOBIN 30 PG (25-34); MEAN CORPUSCULAR HGB CONC 33 G/DL (32-36); MEAN CORPUSCULAR VOLUME 89 FL (80-99); MEAN PLATELET VOLUME 10.5 FL (7.4-10.4); MONOCYTES # (AUTO) 0.8 X 10^3 (0.0-1.0); MONOCYTES % (AUTO) 6 % (0-12); NEUTROPHILS # (AUTO) 9.8 X 10^3 (1.8-7.8); NEUTROPHILS % (AUTO) 81 % (42-75); PLATELET COUNT 339 10^3/uL (130-400); WHITE BLOOD COUNT 12.1 10^3/uL (4.3-11.0)
[2019-07-28 13:38] LABS: ALBUMIN 3.5 GM/DL (3.2-4.5); BILIRUBIN,TOTAL 0.5 MG/DL (0.1-1.0); CALCIUM 8.5 MG/DL (8.5-10.1); CREATININE SERUM 1.14 MG/DL (0.60-1.30); MAGNESIUM 1.9 MG/DL (1.6-2.4); POTASSIUM 6.2 MMOL/L (3.6-5.0); TOTAL PROTEIN 6.4 GM/DL (6.4-8.2)
[2019-07-28] MEDS ORDERED: NS IV 1000 ML 1,000 ML IV SCH (13:46)
[2019-07-28] MEDS ORDERED: NS IV 1000 ML 1,000 ML IV ONE (13:46)
[2019-07-28] MEDS ORDERED: inSUlin (REGULAR) HUMAN 1 UNIT/0.01 ML (CHARGE PER UNIT) IV ONE (14:00)
--- NOTE | 2019-07-28 14:12 | ED Syncope ---
General Chief Complaint: Glucose Problems Stated Complaint: RAPID HEART BEAT,DIZZINESS Nursing Triage Note: PT TO TRIAGE CO OF NOT FEELING GOOD, TONGUE AND FINGERS TINGLING BILATERALLY DIZZY STATES BLOOD SUGAR 62 EARLIER TODAY CURRENT BS 361 (SCOTTIE GARCIA MEDICAL STUDENT) History of Present Illness Initial Comments Ms. Gramajo is a 58 year-old female who arrived via private vehicle presenting for syncope. HPI: Patient states that she has had intermittent dizziness for the past week that last approximately 1 minute. This syncope is described as "feeling like she may pass out" combined with unsteadiness. She reports that she did lose consci ousness one time, last 07/24/19, for an unknown amount of time. This LOC was unwittnessed as she lives alone. She denied any loss of bladder or bowel function, tongue biting, or muscle soreness after the episode. Her syncopal epsiodes are frequently associated with standing or activity, and are also associated with palpitations, SOA, and nausea. She denies any chest pain, s hortness of breath, or vomiting. She denies any recent illnesses. She presents today after experiencing another episode of dizziness, SOA, & palpitations this morning while at work. She states that this episode prompted her to come in because she was worried with her cardiac history. PMH: Quadruple bypass in December 2015. She follows w/ a logistics operations director- Dr. Jeffries. She is also T1 Diabetic and reports low blood sugars this morning in the 50s. She has a history of Thyroid disease & is s/p ablation. She currently takes replacement LT4. Other PMH includes COPD and PAD. (SCOTTIE GARCIA MEDICAL STUDENT) Date Seen by Provider: Jul 28, 2019 Time Seen by Provider: 13:22 (JESSICA SALGADO MD) Allergies and Home Medications Allergies Coded Allergies: ciprofloxacin (Verified Allergy, Mild, redness and itching , 12/04/18) redness and itching at iv site Home Medications Albuterol Sulfate 1 Puff Puff, 2 PUFF IH Q4H PRN for SHORTNESS OF BREATH, (Reported) 1 PUFF = 90 MCG Aspirin 81 Mg Tab.chew, 81 MG PO DAILY, (Reported) Atorvastatin Calcium 40 Mg Tablet, 40 MG PO DAILY, (Reported) LAST FILLED #30 09-26-18 Buspirone HCl 5 Mg Tablet, 5 MG PO BID, (Reported) Cefdinir 300 Mg Capsule, 300 MG PO BID Prescribed by: TONG MAGALLON on 12/06/18 1053 Clopidogrel Bisulfate 75 Mg Tablet, 75 MG PO DAILY, (Reported) LAST FILLED #30 10-21-18 Gabapentin 100 Mg Capsule, 100 MG PO HS, (Reported) LAST FILLED #30 09-26-18 Insulin Aspart 100 Unit/1 Ml Susp, 12 UNITS SQ TIDWM, (Reported) LAST FILLED #3 VIALS 07-30-18 Insulin Determir 1,000 Units/10 Ml Soln, 15 UNITS SQ BID, (Reported) LAST FILLED #3 VIALS 06-28-18 Levothyroxine Sodium 175 Mcg Tablet, 175 MCG PO DAILY, (Reported) Metoprolol Succinate 50 Mg Tab.er.24h, 50 MG PO DAILY, (Reported) Oxycodone HCl/Acetaminophen 1 Each Tablet, 1 TAB PO Q4H PRN for PAIN-MODERATE Prescribed by: TONG MAAGLLON on 12/06/18 105 Paroxetine HCl 40 Mg Tablet, 40 MG PO DAILY, (Reported) Tiotropium [place] 4 Gm Mist.inhal, 2 PUFF IH DAILY, (Reported) Patient Home Medication List Home Medication List Reviewed: Yes (JESSICA SALGADO MD) Review of Systems Constitutional: no symptoms reported EENTM: no symptoms reported Respiratory: dyspnea on exertion, short of breath Cardiovascular: palpitations, syncope, vascular heart diseas Gastrointestinal: no symptoms reported Genitourinary: no symptoms reported Musculoskeletal: no symptoms reported Skin: no symptoms reported Psychiatric/Neurological: Depressed (SCOTTIE GARCIA MEDICAL STUDENT) Past Xpqtlez-Ldhykm-Oeybuu Hx Patient Social History Alcohol Use: Denies Use Recreational Drug Use: No Smoking Status: Current Everyday Smoker Type Used: Cigarettes 2nd Hand Smoke Exposure: No Recent Foreign Travel: No Contact w/Someone Who Travel: No Recent Infectious Disease Expo: No Recent Hopitalizations: No (SCOTTIE GARCIA MEDICAL STUDENT) Immunizations Up To Date Tetanus Booster (TDap): Unknown PED Vaccines UTD: No Date of Pneumonia Vaccine: Apr 02, 2013 Date of Influenza Vaccine: Apr 07, 2016 (SCOTTIE GARCIA MEDICAL STUDENT) Seasonal Allergies Seasonal Allergies: No (SCOTTIE GARCIA MEDICAL STUDENT) Past Medical History Surgeries: Yes Abdominal, Cardiac, CABG, 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, Orthopedic, Thyroidectomy, Vascular Surgery Respiratory: Yes COPD Cardiac: Yes (RIGHT ILIAC STENT; 4 VESSEL CABG AND RIGHT CAROTID ENDARTERECTOMY 12/2015) Coronary Artery Disease, High Cholesterol, Peripheral Vascular Neurological: Yes Neuropathy Reproductive Disorders: No Female Reproductive Disorders: Denies 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, Menopausal Sexually Transmitted Disease: No HIV/AIDS: No Genitourinary: No Gastrointestinal: Yes Gastroesophageal Reflux, Chronic Constipation Musculoskeletal: Yes (CHRONIC NECK PAIN--S/P CERVICAL FUSIN) Degenerate Disk Disease Endocrine: Yes Diabetes, Insulin dep, Hypothyroidsim HEENT: No Loss of Vision: Denies Hearing Impairment: Denies Cancer: No Psychosocial: Yes Anxiety, Depression Integumentary: Yes (PREVIOUS ABCESSES) Blood Disorders: No Adverse Reaction/Blood Tranf: No (has never had a transfusion) (SCOTTIE GARCIA MEDICAL STUDENT) Family Medical History Cancer G8 BROTHER, Onset:Unknown G8 BROTHER, Onset:Unknown Cancer of colon G8 BROTHER, Onset:Unknown Chest pain 19 MOTHER, Onset:Unknown Congestive heart failure 19 FATHER, Onset:60 years & older Family history: Alzheimer's disease 19 MOTHER, Onset:50's - 60 Family history: Arthritis 19 MOTHER, Onset:Unknown Family history: Asthma 19 FATHER, Onset:Unknown Family history: Cardiovascular disease 19 MOTHER, Onset:50's - 60 Family history: Coronary thrombosis 19 MOTHER, Onset:Unknown Family history: Diabetes mellitus 19 MOTHER, Onset:Unknown Family history: Hypertension 19 MOTHER, Onset:50's - 60 Family history: Thyroid disorder 19 MOTHER, Onset:50's - 60 Heart disease 19 MOTHER, Onset:50's - 60 Human immunodeficiency virus (HIV) seropositivity G8 BROTHER, Onset:40's - 50 Myocardial infarction 19 MOTHER, Onset:50's - 60 No Family History of: Abdominal aortic aneurysm [place]'s disease Alcoholism Aphasia Cataract Congenital heart disease Cystic fibrosis Dementia Dysphagia Family history: Allergy Family history: Breast disease Family history: Gastrointestinal disease Family history: Glaucoma Family history: Osteoporosis Headache Hearing loss Hereditary disease History of - anemia History of - disorder History of - respiratory disease History of drug abuse Hypercholesterolemia Infertile Kidney disease Malignant neoplasm of lung Parkinson's disease Prostate cancer Psychotic disorder Seizure disorder Stroke Tuberculosis Visual impairment Physical Exam Vital Signs Vital Signs - First Documented 07/28/19 11:07 Temp 36.9 Pulse 81 Resp 20 B/P (MAP) 147/64 (91) Pulse Ox 100 (JESSICA SALGADO MD) Vital Signs Capillary Refill : Less Than 3 Seconds (SCOTTIE GARCIA MEDICAL STUDENT) Height, Weight, BMI Height: 5'5.00" Weight: 125lbs. 0.0oz. 56.258758qh; 26.00 BMI Method:Stated General Appearance: No Apparent Distress HEENT: Normal ENT Inspection Neck: Normal Inspection Cardiovascular: Regular Rate, Rhythm, No Edema, No Murmur Respiratory: Lungs Clear, Normal Breath Sounds Gastrointestinal: Normal Bowel Sounds, Non Tender, Soft Extremities: Normal Capillary Refill, No Pedal Edema, Other (Bruising present on lower extremities. Pt states this is unusual- possibly due to fall when she lost consciousness, but unsure. ) Neurologic/Psychiatric: Alert, Oriented x3, Normal Mood/Affect Skin: Normal Color, Warm/Dry (SCOTTIE GARCIA MEDICAL STUDENT) Progress/Results/Core Measures Results/Orders Lab Results Laboratory Tests Test 07/28/19 11:13 07/28/19 11:50 07/28/19 13:10 07/28/19 14:25 Range/Units Glucometer 361 H 70-110 MG/DL White Blood Count 12.1 H 4.3-11.0 10^3/uL Red Blood Count 4.54 4.35-5.85 10^6/uL Hemoglobin 13.4 11.5-16.0 G/DL Hematocrit 41 35-52 % Mean Corpuscular Volume 89 80-99 FL Mean Corpuscular Hemoglobin 30 25-34 PG Mean Corpuscular Hemoglobin Concent 33 32-36 G/DL Red Cell Distribution Width 14.0 10.0-14.5 % Platelet Count 339 130-400 10^3/uL Mean Platelet Volume 10.5 H 7.4-10.4 FL Neutrophils (%) (Auto) 81 H 42-75 % Lymphocytes (%) (Auto) 12 12-44 % Monocytes (%) (Auto) 6 0-12 % Eosinophils (%) (Auto) 0 0-10 % Basophils (%) (Auto) 1 0-10 % Neutrophils # (Auto) 9.8 H 1.8-7.8 X 10^3 Lymphocytes # (Auto) 1.4 1.0-4.0 X 10^3 Monocytes # (Auto) 0.8 0.0-1.0 X 10^3 Eosinophils # (Auto) 0.1 0.0-0.3 10^3/uL Basophils # (Auto) 0.1 0.0-0.1 10^3/uL Sodium Level 129 L 135-145 MMOL/L Potassium Level 6.2 H 3.6-5.0 MMOL/L Chloride Level 97 L 98-107 MMOL/L Carbon Dioxide Level 20 L 21-32 MMOL/L Anion Gap 12 5-14 MMOL/L Blood Urea Nitrogen 23 H 7-18 MG/DL Creatinine 1.14 0.60-1.30 MG/DL Estimat Glomerular Filtration Rate 49 BUN/Creatinine Ratio 20 Glucose Level 437 *H 70-105 MG/DL Calcium Level 8.5 8.5-10.1 MG/DL Corrected Calcium 8.9 8.5-10.1 MG/DL Magnesium Level 1.9 1.6-2.4 MG/DL Total Bilirubin 0.5 0.1-1.0 MG/DL Aspartate Amino Transf (AST/SGOT) 20 5-34 U/L Alanine Aminotransferase (ALT/SGPT) 16 0-55 U/L Alkaline Phosphatase 115 40-136 U/L Myoglobin 38.0 10.0-92.0 NG/ML Troponin I < 0.028 <0.028 NG/ML Total Protein 6.4 6.4-8.2 GM/DL Albumin 3.5 3.2-4.5 GM/DL Thyroid Stimulating Hormone (TSH) 2.42 0.35-4.94 UIU/ML Free Thyroxine 1.48 0.70-1.48 NG/DL Urine Color YELLOW Urine Clarity CLEAR Urine pH 7.0 5-9 Urine Specific [place] 1.015 L 1.016-1.022 Urine Protein 3+ H NEGATIVE Urine Glucose (UA) 3+ H NEGATIVE Urine Ketones NEGATIVE NEGATIVE Urine Nitrite NEGATIVE NEGATIVE Urine Bilirubin NEGATIVE NEGATIVE Urine Urobilinogen 0.2 < = 1.0 MG/DL Urine Leukocyte Esterase NEGATIVE NEGATIVE Urine RBC (Auto) NEGATIVE NEGATIVE Urine RBC NONE /HPF Urine WBC NONE /HPF Urine Squamous Epithelial Cells 0-2 /HPF Urine Crystals NONE /LPF Urine Bacteria NEGATIVE /HPF Urine Casts NONE /LPF Urine Mucus NEGATIVE /LPF Urine Culture Indicated NO Test 07/28/19 15:07 07/28/19 17:12 Range/Units Glucometer 254 H 181 H 70-110 MG/DL (JESSICA SALGADO MD) My Orders Orders - JESSICA SALGADO MD Ed Iv/Invasive Line Start (07/28/19 13:22) Cbc With Automated Diff (07/28/19 13:22) Comprehensive Metabolic Panel (07/28/19 13:22) Magnesium (07/28/19 13:22) Ua Culture If Indicated (07/28/19 13:22) Ns Iv 1000 Ml (Sodium Chloride 0.9%) (07/28/19 13:46) Ns Iv 1000 Ml (Sodium Chloride 0.9%) (07/28/19 13:46) Thyroid Stimulating Hormone (07/28/19 13:46) Free T4 (Free Thyroxine) (07/28/19 13:46) Insulin (Regular) Human (Humulin R (Per (07/28/19 14:00) Chest 1 View, Ap/Pa Only (07/28/19 13:47) Ekg Tracing (07/28/19 13:47) Myoglobin Serum (07/28/19 13:47) Monitor-Rhythm Ecg Trace Only (07/28/19 13:47) Troponin I (07/28/19 13:47) Accucheck Stat ONCE (07/28/19 14:23) Accucheck Stat ONCE (07/28/19 14:23) Iv Push Software Support Analyst Ed (07/28/19 ) (JESSICA SALGADO MD) Medications Given in ED (JESSICA SALGADO MD) Vital Signs/I&O 07/28/19 07/28/19 11:07 17:31 Temp 36.9 36.9 Pulse 81 71 Resp 20 20 B/P (MAP) 147/64 (91) 137/65 (91) Pulse Ox 100 100 (JESSICA SALGADO MD) Blood Pressure Mean: 91 Initial ECG Impression Time: 11:08 Initial ECG Rate: 76 Initial ECG Rhythm: Normal Sinus Comment Sinus rhythm with no ST elevation or depression. No abnormal intervals or axis deviation. Prominent nondiagnostic p waves. (JESSICA SALGADO MD) Diagnostic Imaging Diagonstic Imaging: Xray Plain Films/CT/US/NM/MRI: chest Comments Chest x-ray viewed by me and report reviewed. See report below: NAME: TIFFANY GRAMAJO [facility] REC#: [id number] PT STATUS: REG ER : 1960 PHYSICIAN: JESSICA SALGADO MD ADMIT DATE: 07/28/19/ER Signed Date of Exam:07/28/19 CHEST 1 VIEW, AP/PA ONLY INDICATION: Fluctuating blood sugars. EXAMINATION: Portable chest. FINDINGS: There are postop changes from CABG surgery. Heart size and pulmonary vascularity are normal. Lungs are clear. There are no effusions or pneumothoraces. There are some old healed rib fractures in the left thoracic cage. IMPRESSION: No acute abnormalities in the chest. Dictated by: Dictated on workstation # [id number] Dict: 07/28/19 1430 Trans: 07/28/19 1646 [id number] Interpreted by: SAKINA BENJAMIN MD Electronically signed by: SAKINA BENJAMIN MD 07/28/19 1646 (JESSICA SALGADO MD) Departure Impression Primary Impression: Hypovolemia Additional Impressions: Hypoglycemia Dizziness Hyperkalemia Disposition: HOME, SELF-CARE Condition: Improved Departure-Patient Inst. Decision time for Depature: 17:17 (JESSICA SALGADO MD) Referrals: PILLO FRANCOIS MD (PCP/Family) Primary Care Physician Patient Instructions: Diabetes Type 1, Adult (DC) Add. Discharge Instructions: Drink plenty of water and non-caloric clear liquids. Monitor your blood sugars closely, preferably fasting in the morning and 2 hours after meals. Review those blood sugars with your primary care provider. Your potassium was high today. Since we were not able to recheck your potassium, please follow-up with your primary care provider within the next 48 hours and consider rechecking potassium. Return to the emergency room if you have any worsening of symptoms. All discharge instructions reviewed with patient and/or family. Voiced understanding. This patient was interviewed and examined by me personally along with Scottie Garcia MS4. I agree with his history, physical, assessment, and documentation with the following additions and corrections. Patient was thoroughly evaluated. She was found to be hyperglycemic. She received 2 L of IV fluids and insulin. She was feeling much better after these therapies. In fact, she felt better than she has in weeks. We did attempt to redraw her blood to check a BMP. However, after multiple attempts we were unable to draw. Patient elected to return home and monitor her blood sugars closely and continue to aggressively hydrate at home. Exam: Gen.: Alert, oriented, thin, HEENT: Normocephalic and atraumatic Heart: Regular rate and rhythm without murmur Lungs: Clear to auscultation bilaterally with normal effort Abdomen: Soft, nontender Skin: Warm, dry Neuro: Alert, oriented, no focal deficits (JESSICA SALGADO MD) Copy Copies To 1: PILLO FRANCOIS MD Copies To 2: THOMAS JEFFRIES MD FACP FACC CCDS SCOTTIE GARCIA MEDICAL STUDENT Jul 28, 2019 14:12 JESSICA SALGADO MD Jul 28, 2019 17:19
[2019-07-28 14:23] LABS: FREE T4 (FREE THYROXINE) 1.48 NG/DL (0.70-1.48)
[2019-07-28 14:31] LABS: BILIRUBIN,URINE NEGATIVE (NEGATIVE); CLARITY,URINE CLEAR; COLOR,URINE YELLOW; GLUCOSE, URINE (UA) 3+ (NEGATIVE); KETONES,URINE NEGATIVE (NEGATIVE); LEUKOCYTE ESTERASE ,URINE NEGATIVE (NEGATIVE); NITRITE,URINE NEGATIVE (NEGATIVE); PROTEIN,URINE 3+ (NEGATIVE)
--- NOTE | 2019-07-28 14:32 | Diagnostic Imaging Report ---
INDICATION: Fluctuating blood sugars. EXAMINATION: Portable chest. FINDINGS: There are postop changes from CABG surgery. Heart size and pulmonary vascularity are normal. Lungs are clear. There are no effusions or pneumothoraces. There are some old healed rib fractures in the left thoracic cage. IMPRESSION: No acute abnormalities in the chest. Dictated by: Dictated on workstation # [id number]
[2019-07-28 14:40] LABS: BACTERIA,URINE NEGATIVE /HPF; SQUAMOUS EPITHELIAL CELL,UR 0-2 /HPF
[2019-07-28 17:31] VITALS: BP 137/65
== END 2019-07-28 17:31 | disposition home or self-care (01) ==
LOC: EDUNIT# 10:53 → ER 10:54
DX: E86.1 Hypovolemia (principal); E10.649 Type 1 diabetes mellitus with hypoglycemia without coma; R42 Dizziness and giddiness; E87.5 Hyperkalemia; S80.12XA Contusion of left lower leg, initial encounter; S80.11XA Contusion of right lower leg, initial encounter; J44.9 Chronic obstructive pulmonary disease, unspecified; I25.10 Atherosclerotic heart disease of native coronary artery without angina pectoris; E78.00 Pure hypercholesterolemia, unspecified; K21.9 Gastro-esophageal reflux disease without esophagitis; E10.40 Type 1 diabetes mellitus with diabetic neuropathy, unspecified; E03.9 Hypothyroidism, unspecified; F41.9 Anxiety disorder, unspecified; F32.9 Major depressive disorder, single episode, unspecified; F17.210 Nicotine dependence, cigarettes, uncomplicated; Z90.710 Acquired absence of both cervix and uterus; Z95.1 Presence of aortocoronary bypass graft; Z88.1 Allergy status to other antibiotic agents; Z79.82 Long term (current) use of aspirin; Z79.02 Long term (current) use of antithrombotics/antiplatelets; Z79.4 Long term (current) use of insulin; Z80.0 Family history of malignant neoplasm of digestive organs; Z82.49 Family history of ischemic heart disease and other diseases of the circulatory system; X58.XXXA Exposure to other specified factors, initial encounter
CPT/HCPCS: 36415; 71045; 80053; 81000; 82962; 83735; 83874; 84439; 84443; 84484; 85025; 93005; 93041; 96361; 96374

== ENCOUNTER → 2020-01-07 | Outpatient (CLI) | payer OTHER ==
[~2020-01-07] MED LIST changes: +HOLD METFORMIN - RECEIVED CONTRAST 20 ML VIAL IV SCH; +IOHEXOL 350 MG/ML 100 ML (OMNIPAQUE 350) VIAL IV ONE; +NS 100 ML (IVPB) BAG IV ONE
[2020-01-07 12:14] LABS: HEMOGLOBIN 13.5 G/DL (11.5-16.0); MEAN PLATELET VOLUME 9.7 FL (7.4-10.4); RED CELL DISTRIBUTION WIDTH 13.6 % (10.0-14.5); WHITE BLOOD COUNT 12.5 10^3/uL (4.3-11.0)
[2020-01-07 12:33] LABS: ALBUMIN 3.6 GM/DL (3.2-4.5)
[2020-01-07 12:34] LABS: CHLORIDE 106 MMOL/L (98-107); POTASSIUM 4.2 MMOL/L (3.6-5.0); SODIUM 138 MMOL/L (135-145)
[2020-01-07 12:35] LABS: CALCIUM 9.1 MG/DL (8.5-10.1)
[2020-01-07 12:36] LABS: GLUCOSE 108 MG/DL (70-105); TOTAL PROTEIN 6.7 GM/DL (6.4-8.2)
[2020-01-07 12:37] LABS: CARBON DIOXIDE 26 MMOL/L (21-32)
[2020-01-07 12:38] LABS: BILIRUBIN,TOTAL 0.4 MG/DL (0.1-1.0)
[2020-01-07 12:40] LABS: ALKALINE PHOSPHATASE 117 U/L (40-136); CREATININE SERUM 0.88 MG/DL (0.60-1.30); GFR ESTIMATED > 60
[2020-01-07 12:41] LABS: BUN/CREATININE RATIO 24
[2020-01-07 12:43] LABS: ALANINE AMINOTRANSFERASE 16 U/L (0-55)
--- NOTE | 2020-01-07 14:05 | Diagnostic Imaging Report ---
PROCEDURE: CT angiography of the head and CT angiography of the neck with and without contrast. TECHNIQUE: Contiguous noncontrast images were obtained from the skull base through the vertex. After intravenous contrast administration, helical CT angiography of the neck was performed. Source data was reformatted into 3D MIP projections. Delayed post contrast acquisition was also obtained. Auto Exposure Controls were utilized during the CT exam to meet ALARA standards for radiation dose reduction. INDICATION: Left facial numbness, arm weakness, and numbness. COMPARISON: Head CT compared 12/01/2016. No prior angiographic correlate. FINDINGS: There was no evidence for intracranial hemorrhage. There were no findings of focal or generalized cerebral edema following contrast. No abnormal or suspicious parenchymal or meningeal enhancement. There is no hydrocephalus. CT angio neck: Bilateral cervical vertebral arteries are patent, nonfocal and codominant. The common carotids are widely patent at the level of the left carotid bulb. There is predominantly calcified plaque extending into the proximal left ICA with luminal stenosis of 50% or less. Minimal plaque in the right bifurcation and cervical internal carotid present without stenosis. Head: The intradural vertebral arteries, the basilar and the bilateral MAIL CARRIER TECHNICIAN segments are widely patent. There is heavy calcified plaques at the petrous and cavernous segments of the intracranial carotids without hemodynamically significant focal stenosis. The A1 segments and ACOM are patent. The paired anterior cerebral arteries are patent bilaterally. Bilateral middle cerebral arterial segments and primary branches are patent. No large vessel occlusion or intraluminal thrombus identified. No aneurysm or vascular malformation apparent. IMPRESSION: 1. Cervical and intracranial atherosclerotic disease without large vessel occlusion or thrombus. No focal hemodynamically significant stenosis was apparent, however intracranial calcified plaques result in diffuse narrowing of the intracranial ICAs. 2. No evidence for hemorrhage or edema. Dictated by: Dictated on workstation # [id number]
== END ==
LOC: RAD 11:47
PROVIDERS: ATTEND Physician Assistant
DX: I65.23 Occlusion and stenosis of bilateral carotid arteries (principal); R20.0 Anesthesia of skin; M62.81 Muscle weakness (generalized)
CPT/HCPCS: 36415; 70496; 70498; 80053; 84443; 85027

== ENCOUNTER 2020-01-12 11:31 | Emergency (ER) | payer OTHER ==
[~2020-01-12] VITALS: Ht 162.5 cm; Wt 54.4 kg
[~2020-01-12 11:31] MED LIST changes: -HOLD METFORMIN - RECEIVED CONTRAST 20 ML VIAL IV SCH; -IOHEXOL 350 MG/ML 100 ML (OMNIPAQUE 350) VIAL IV ONE; -NS 100 ML (IVPB) BAG IV ONE
[2020-01-12 11:45] VITALS: BP 168/87
[2020-01-12 12:30] LABS: BASOPHILS # (AUTO) 0.1 10^3/uL (0.0-0.1); BASOPHILS % (AUTO) 1 % (0-10); EOSINOPHILS # (AUTO) 0.4 10^3/uL (0.0-0.3); EOSINOPHILS % (AUTO) 3 % (0-10); HEMATOCRIT 50 % (35-52); HEMOGLOBIN 17.2 G/DL (11.5-16.0); LYMPHOCYTES # (AUTO) 1.6 X 10^3 (1.0-4.0); LYMPHOCYTES % (AUTO) 14 % (12-44); MEAN CORPUSCULAR HEMOGLOBIN 30 PG (25-34); MEAN CORPUSCULAR HGB CONC 34 G/DL (32-36); MEAN CORPUSCULAR VOLUME 88 FL (80-99); MEAN PLATELET VOLUME 10.2 FL (7.4-10.4); MONOCYTES # (AUTO) 0.5 X 10^3 (0.0-1.0); MONOCYTES % (AUTO) 4 % (0-12); NEUTROPHILS % (AUTO) 78 % (42-75); PLATELET COUNT 208 10^3/uL (130-400); RED CELL DISTRIBUTION WIDTH 13.7 % (10.0-14.5); WHITE BLOOD COUNT 11.5 10^3/uL (4.3-11.0)
[2020-01-12 12:31] LABS: BILIRUBIN,URINE NEGATIVE (NEGATIVE); CLARITY,URINE CLEAR; COLOR,URINE YELLOW; GLUCOSE, URINE (UA) 3+ (NEGATIVE); KETONES,URINE 1+ (NEGATIVE); LEUKOCYTE ESTERASE ,URINE NEGATIVE (NEGATIVE); NITRITE,URINE NEGATIVE (NEGATIVE); PROTEIN,URINE 2+ (NEGATIVE)
[2020-01-12 12:44] LABS: BACTERIA,URINE NEGATIVE /HPF
[2020-01-12 12:44] LABS: ALBUMIN 4.1 GM/DL (3.2-4.5)
[2020-01-12 12:45] LABS: CHLORIDE 97 MMOL/L (98-107); POTASSIUM 5.6 MMOL/L (3.6-5.0); SODIUM 132 MMOL/L (135-145)
[2020-01-12 12:46] LABS: CALCIUM 9.2 MG/DL (8.5-10.1)
[2020-01-12 12:48] LABS: CARBON DIOXIDE 20 MMOL/L (21-32)
[2020-01-12 12:49] LABS: BILIRUBIN,TOTAL 0.8 MG/DL (0.1-1.0)
[2020-01-12 12:50] LABS: ALKALINE PHOSPHATASE 138 U/L (40-136)
[2020-01-12 12:51] LABS: CREATININE SERUM 1.34 MG/DL (0.60-1.30); GFR ESTIMATED 41
[2020-01-12 12:52] LABS: BUN/CREATININE RATIO 18
[2020-01-12 12:53] LABS: ALANINE AMINOTRANSFERASE 16 U/L (0-55)
[2020-01-12 13:10] LABS: AMYLASE 42 U/L (25-125)
[2020-01-12 13:14] LABS: INR 0.9 (0.8-1.4); PROTHROMBIN TIME PATIENT 12.8 SEC (12.2-14.7)
[2020-01-12 13:16] LABS: GLUCOSE 499 MG/DL (70-105)
[2020-01-12 13:18] LABS: MAGNESIUM 2.3 MG/DL (1.6-2.4)
[2020-01-12 13:19] LABS: CREATINE KINASE 60 U/L (29-168); LIPASE 17 U/L (8-78)
--- NOTE | 2020-01-12 13:20 | Diagnostic Imaging Report ---
PROCEDURE: CT cervical spine without contrast. TECHNIQUE: Multiple contiguous axial images were obtained through the cervical spine without the use of intravenous contrast. Sagittal and coronal reformations were then performed. Auto Exposure Controls were utilized during the CT exam to meet ALARA standards for radiation dose reduction. INDICATION: Bilateral arm pain and numbness. COMPARISON: CT cervical spine study dated 02/04/2016. FINDINGS: The alignment is normal. There are post surgical changes of ACDF with anterior plate and screws transfixing the C5 through C7 levels. The hardware appears intact. No fracture or loosening is identified. The vertebral body heights are maintained. No acute bony abnormality is detected. The prevertebral tissues are within normal limits. The odontoid is intact. The bony canal appears to be patent. IMPRESSION: Postop changes of C5 through C7 ACDF. No acute bony abnormality is detected. Dictated by: Dictated on workstation # [id number]
[2020-01-12 13:27] LABS: CREATINE KINASE MB 1.7 NG/ML (<6.6)
[2020-01-12] MEDS ORDERED: NS IV 1000 ML 1,000 ML IV SCH (13:27)
--- NOTE | 2020-01-12 13:27 | ED General ---
General Chief Complaint: General Problems/Pain Stated Complaint: BODY NUMBNESS,NAUSEA Nursing Triage Note: PT AMB TO [facility] 5 WITH COMPLAINT OF HEADACHE AND NUMBNESS IN LIPS, FACE, TONGUE AND HANDS. CALLED PCP AND HAD HEAD CTA DONE OF January THAT WAS INCONCLUSIVE. HAD MRI ORDERED ON January BUT HAS NOT HAD MRI SCHEDULED. STATES SHE FEELS THESE SYMPTOMS ARE SIMILAR TO WHEN SHE HAD HER CERVIAL FUSION DONE. STATES CALLED PCP TO SEE IF THEY COULD ADD NECK/SPINE TO THE MRI ORDERS AND WAS TOLD TO COME TO ER IF SYMPTOMS WERE WORSENING. Nursing Sepsis Screen: No Definite Risk Source of Information: Patient History of Present Illness Date Seen by Provider: Jan 12, 2020 Time Seen by Provider: 12:00 Initial Comments PT ARRIVES VIA POV FROM HOME PT WITH A MULTITUDE OF COMPLAINTS. C/O NAUSEA, NO VOMITING . NO ABDOMINAL PAIN--SYMPTOMS OFF AND ON FOR 2 MONTHS OR MORE STATES SHE HAS HAD "TERRIBLE DIARRHEA" FOR THE PAST 2 OR MORE MONTHS. STATES "I'VE BEEN HAVING NUMBNESS IN MY MOUTH, LIPS, ARMS AND FEET FOR AT LEAST 2 MONTHS" STATES IT IS PROGRESSIVELY GETTING WORSE, BUT IT COMES AND GOES, GOT WORSE OVER THIS PAST WEEKEND, AND IS WORSE WITH ANY ACTIVITY, EVEN WALKING ACROSS THE ROOM . STATES SHE HAD "NUMBNESS DOWN MY THROAT" BUT NO PROBLEMS SWALLOWING OR TALKING STATES SHE HAS BEEN HAVING TROUBLE GRIPPING WITH BOTH HANDS FOR AT LEAST 2 MONTHS WELL--THIS ALSO COMES AND GOES HAS CHRONIC HEADACHES, THESE HAVE ALSO BEEN WORSE FOR THE LAST COUPLE OF MONTHS --NO HEADACHE NOW. NO VISION CHANGES NO CHEST PAIN NO SHORTNESS OF BREATH NO PALPITATIONS NO FEVER/SWEATS/CHILLS NO COUGH OR URI SYMPTOMS NO SORE THROAT NO CHANGES IN TASTE OR SMELL NO RECENT ILLNESS NO KNOWN SICK CONTACTS OR KNOWN EXPOSURE TO COVID-19. NONE OF THESE SYMPTOMS ARE ANY DIFFERENT TODAY STATES "I STARTED THINKING, AND THE SYMPTOMS I'M HAVING ARE THE SAME WHEN I HAD MY C-SPINE SURGERY" STATES SHE CALLED AND SPOKE OVER THE PHONE WITH JOSSELIN LOMBARDO AT [facility], AND CALLED TO DISCUSS "ANOTHER ISSUE" ( THE DIARRHEA THAT SHE HAS BEEN HAVING--PT STATES MUNIRA THOUGHT IT WAS IBS AND CALLED IN A PRESCRIPTION, BUT PT HAS NOT PICKED IT UP YET) --NO TESTS WERE ORDERED FOR THAT COMPLAINT STATES THAT SHE ALSO MENTIONED THESE OTHER SYMPTOMS AND IS TO HAVE AN MRI OF HER HEAD, BUT HAS NOT SCHEDULED IT YET. STATES SHE CALLED MUNIRA BACK ABOUT THE OTHER SYMPTOMS BEING THE SAME BEFORE SHE HAD HER C-SPINE SURGERY , AND ASKED IF AN MRI OF THE CERVICAL SPINE COULD BE ADDED ON TO THE MRI OF HER BRAIN, AND PT STATES MUNIRA TOLD HER SHE WOULD NOT AND ADVISED HER TO GO TO ER INSTEAD. PT STATES SHE HAD A CT ANGIOGRAM OF HER HEAD 01/07/20 WHICH WAS NORMAL. PT IS INSULIN DEPENDENT DIABETIC. STATES HER BLOOD GLUCOSE WAS 52 THIS MORNING STATES SHE HAS NOT EATEN ANYTHING BUT HAS BEEN DRINKING ORANGE JUICE AND HAD COFFEE AND WATER GLUCOSE JUST PRIOR TO ARRIVAL WAS 444. TOOK 12 UNITS OF HUMALOG JUST PRIOR TO ARRIVAL, WELL ALL OF HER OTHER REGULAR MEDICATIONS PT HAS ALREADY BEEN DIAGNOSED WITH PERIPHERAL NEUROPATHY PCP: DR. FRANCOIS Allergies and Home Medications Allergies Coded Allergies: ciprofloxacin (Verified Allergy, Mild, redness and itching , 12/04/18) redness and itching at iv site Home Medications Albuterol Sulfate 1 Puff Puff, 2 PUFF IH Q4H PRN for SHORTNESS OF BREATH, (Reported) 1 PUFF = 90 MCG Aspirin 81 Mg Tab.chew, 81 MG PO DAILY, (Reported) Atorvastatin Calcium 40 Mg Tablet, 40 MG PO DAILY, (Reported) LAST FILLED #30 09-26-18 Buspirone HCl 5 Mg Tablet, 5 MG PO BID, (Reported) Cefdinir 300 Mg Capsule, 300 MG PO BID Prescribed by: TONG MAGALLON on 12/06/18 1053 Clopidogrel Bisulfate 75 Mg Tablet, 75 MG PO DAILY, (Reported) LAST FILLED #30 10-21-18 Gabapentin 100 Mg Capsule, 100 MG PO HS, (Reported) LAST FILLED #30 09-26-18 Insulin Aspart 100 Unit/1 Ml Susp, 12 UNITS SQ TIDWM, (Reported) LAST FILLED #3 VIALS 07-30-18 Insulin Determir 1,000 Units/10 Ml Soln, 15 UNITS SQ BID, (Reported) LAST FILLED #3 VIALS 06-28-18 Levothyroxine Sodium 175 Mcg Tablet, 175 MCG PO DAILY, (Reported) Metoprolol Succinate 50 Mg Tab.er.24h, 50 MG PO DAILY, (Reported) Oxycodone HCl/Acetaminophen 1 Each Tablet, 1 TAB PO Q4H PRN for PAIN-MODERATE Prescribed by: TONG MAGALLON on 12/06/18 1053 Paroxetine HCl 40 Mg Tablet, 40 MG PO DAILY, (Reported) Tiotropium [place] 4 Gm Mist.inhal, 2 PUFF IH DAILY, (Reported) Patient Home Medication List Home Medication List Reviewed: Yes Review of Systems Review of Systems Constitutional: no symptoms reported; No chills, No diaphoresis, No dizziness, No fever, No malaise, No weakness EENTM: see HPI; No blurred vision, No mouth pain, No nose congestion, No throat pain, No throat swelling Respiratory: no symptoms reported; No cough, No dyspnea on exertion, No short of breath Cardiovascular: no symptoms reported; No chest pain, No edema, No palpitations, No syncope Gastrointestinal: see HPI; No abdominal pain; diarrhea; No dysphagia, No hematemesis, No loss of appetite; nausea; No vomiting Genitourinary: no symptoms reported Musculoskeletal: no symptoms reported; No back pain, No neck pain Skin: no symptoms reported Psychiatric/Neurological: See HPI, Headache, Numbness, Paresthesia; Denies Seizure; Tingling, Weakness Hematologic/Lymphatic: No Symptoms Reported Immunological/Allergic: no symptoms reported Past Mrowcke-Dzfyyq-Rkncdc Hx Past Med/Social Hx: Reviewed and Corrections made Patient Social History Alcohol Use: Denies Use Recreational Drug Use: No Smoking Status: Current Everyday Smoker Type Used: Cigarettes 2nd Hand Smoke Exposure: No Recent Foreign Travel: No Contact w/Someone Who Travel: No Recent Infectious Disease Expo: No Recent Hopitalizations: No Immunizations Up To Date Tetanus Booster (TDap): Unknown PED Vaccines UTD: No Date of Pneumonia Vaccine: Apr 02, 2013 Date of Influenza Vaccine: Apr 07, 2016 Seasonal Allergies Seasonal Allergies: No Past Medical History Surgeries: Yes (SEE BELOW) Abdominal, Cardiac, CABG, 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, Oophorectomy, Orthopedic, Thyroidectomy, Vascular Surgery Respiratory: Yes COPD Cardiac: Yes (RIGHT ILIAC STENT; 4 VESSEL CABG AND RIGHT CAROTID ENDARTERECTOMY 12/2015) Coronary Artery Disease, High Cholesterol, Hypertension, Peripheral Vascular Neurological: Yes Headaches /Migraines, Neuropathy Reproductive Disorders: No Female Reproductive Disorders: Denies [employer] 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, Menopausal Sexually Transmitted Disease: No HIV/AIDS: No Genitourinary: No Gastrointestinal: Yes Gastroesophageal Reflux, Chronic Constipation, Chronic Diarrhea, Hiatal Hernia Musculoskeletal: Yes (CHRONIC NECK PAIN--S/P CERVICAL FUSION) Degenerate Disk Disease, Chronic Back Pain Endocrine: Yes Diabetes, Insulin dep, Hypothyroidsim HEENT: No Loss of Vision: Denies Hearing Impairment: Denies Cancer: No Psychosocial: Yes Anxiety, Depression Integumentary: Yes (PREVIOUS ABCESSES) Blood Disorders: No Adverse Reaction/Blood Tranf: No (has never had a transfusion) Family Medical History Cancer G8 BROTHER, Onset:Unknown G8 BROTHER, Onset:Unknown Cancer of colon G8 BROTHER, Onset:Unknown Chest pain 19 MOTHER, Onset:Unknown Congestive heart failure 19 FATHER, Onset:60 years & older Family history: Alzheimer's disease 19 MOTHER, Onset:50's - 60 Family history: Arthritis 19 MOTHER, Onset:Unknown Family history: Asthma 19 FATHER, Onset:Unknown Family history: Cardiovascular disease 19 MOTHER, Onset:50's - 60 Family history: Coronary thrombosis 19 MOTHER, Onset:Unknown Family history: Diabetes mellitus 19 MOTHER, Onset:Unknown Family history: Hypertension 19 MOTHER, Onset:50's - 60 Family history: Thyroid disorder 19 MOTHER, Onset:50's - 60 Heart disease 19 MOTHER, Onset:50's - 60 Human immunodeficiency virus (HIV) seropositivity G8 BROTHER, Onset:40's - 50 Myocardial infarction 19 MOTHER, Onset:50's - 60 No Family History of: Abdominal aortic aneurysm Unicoi's disease Alcoholism Aphasia Cataract Congenital heart disease Cystic fibrosis Dementia Dysphagia Family history: Allergy Family history: Breast disease Family history: Gastrointestinal disease Family history: Glaucoma Family history: Osteoporosis Headache Hearing loss Hereditary disease History of - anemia History of - disorder History of - respiratory disease History of drug abuse Hypercholesterolemia Infertile Kidney disease Malignant neoplasm of lung Parkinson's disease Prostate cancer Psychotic disorder Seizure disorder Stroke Tuberculosis Visual impairment PSH: -RIGHT ILIAC ARTERY STENT -4 VESSEL CABG 12/2015 -RIGHT CAROTID ENDARTERECTOMY 12/2015 -TONSILLECTOMY -HYSTERECTOMY/BSO -LAPAROSCOPIC RENETTA FUNDOPLICATION -CERVICAL SPINE FUSION Physical Exam Vital Signs Vital Signs - First Documented 01/12/20 11:45 Temp 37.0 Pulse 96 Resp 20 B/P (MAP) 168/87 (114) Pulse Ox 100 O2 Delivery Room Air Capillary Refill : Less Than 3 Seconds Height, Weight, BMI Height: 5'5.00" Weight: 125lbs. 0.0oz. 56.368931qs; 20.00 BMI Method:Stated General Appearance: No Apparent Distress, Thin, Other (REEKS OF CIGARETTES. DOES NOT APPEAR TO BE ILL OR IN ANY DISCOMFORT OR DISTRESS) HEENT: PERRL/EOMI Neck: Normal Inspection Respiratory: Normal Breath Sounds, No Accessory Muscle Use, No Respiratory Distress Cardiovascular: Regular Rate, Rhythm (FREQUENT ECTOPY--C/W PVC'S ON MONITOR), No Edema, No JVD, No Murmur, Normal Peripheral Pulses, Extra Beats Gastrointestinal: Normal Bowel Sounds, No Organomegaly, No Pulsatile Mass, Non Tender, Soft Back: No CVA Tenderness Extremity: Normal Capillary Refill, Normal Inspection, Normal Range of Motion, Non Tender, No Calf Tenderness, No Pedal Edema Neurologic/Psychiatric: Alert, Oriented x3, No Motor/Sensory Deficits (BUT WITH HX OF PERIPHERAL NEUROPATHY--PT DOES HAVE SENSATION TO LIGHT TOUCH), Normal Mood/Affect, target developer II-XII Norm as Tested Skin: Normal Color, Warm/Dry Progress/Results/Core Measures Suspected Sepsis Recent Fever Within 48 Hours: No Infection Criteria Present: None New/Unexplained Altered Menta: No Sepsis Screen: No Definite Risk SIRS Temperature: Pulse: 96 Respiratory Rate: 20 Laboratory Tests 01/12/20 12:23: White Blood Count 11.5H Blood Pressure 168 /87 Mean: 114 Laboratory Tests 01/12/20 12:23: Creatinine 1.34H, Platelet Count 208, Total Bilirubin 0.8 01/12/20 12:52: INR Comment 0.9 Results/Orders Lab Results Laboratory Tests Test 01/12/20 11:48 01/12/20 12:23 01/12/20 12:52 Range/Units Urine Color YELLOW Urine Clarity CLEAR Urine pH 6.0 5-9 Urine Specific [place] 1.010 L 1.016-1.022 Urine Protein 2+ H NEGATIVE Urine Glucose (UA) 3+ H NEGATIVE Urine Ketones 1+ H NEGATIVE Urine Nitrite NEGATIVE NEGATIVE Urine Bilirubin NEGATIVE NEGATIVE Urine Urobilinogen 0.2 < = 1.0 MG/DL Urine Leukocyte Esterase NEGATIVE NEGATIVE Urine RBC (Auto) TRACE-I NEGATIVE Urine RBC 2-5 H /HPF Urine WBC NONE /HPF Urine Squamous Epithelial Cells 2-5 /HPF Urine Crystals NONE /LPF Urine Bacteria NEGATIVE /HPF Urine Casts NONE /LPF Urine Mucus NEGATIVE /LPF Urine Culture Indicated NO White Blood Count 11.5 H 4.3-11.0 10^3/uL Red Blood Count 5.73 4.35-5.85 10^6/uL Hemoglobin 17.2 #H 11.5-16.0 G/DL Hematocrit 50 35-52 % Mean Corpuscular Volume 88 80-99 FL Mean Corpuscular Hemoglobin 30 25-34 PG Mean Corpuscular Hemoglobin Concent 34 32-36 G/DL Red Cell Distribution Width 13.7 10.0-14.5 % Platelet Count 208 130-400 10^3/uL Mean Platelet Volume 10.2 7.4-10.4 FL Neutrophils (%) (Auto) 78 H 42-75 % Lymphocytes (%) (Auto) 14 12-44 % Monocytes (%) (Auto) 4 0-12 % Eosinophils (%) (Auto) 3 0-10 % Basophils (%) (Auto) 1 0-10 % Neutrophils # (Auto) 9.0 H 1.8-7.8 X 10^3 Lymphocytes # (Auto) 1.6 1.0-4.0 X 10^3 Monocytes # (Auto) 0.5 0.0-1.0 X 10^3 Eosinophils # (Auto) 0.4 H 0.0-0.3 10^3/uL Basophils # (Auto) 0.1 0.0-0.1 10^3/uL Sodium Level 132 L 135-145 MMOL/L Potassium Level 5.6 H 3.6-5.0 MMOL/L Chloride Level 97 L 98-107 MMOL/L Carbon Dioxide Level 20 L 21-32 MMOL/L Anion Gap 15 H 5-14 MMOL/L Blood Urea Nitrogen 24 H 7-18 MG/DL Creatinine 1.34 H 0.60-1.30 MG/DL Estimat Glomerular Filtration Rate 41 BUN/Creatinine Ratio 18 Glucose Level 499 *H 70-105 MG/DL Calcium Level 9.2 8.5-10.1 MG/DL Corrected Calcium 9.1 8.5-10.1 MG/DL Magnesium Level 2.3 1.6-2.4 MG/DL Total Bilirubin 0.8 0.1-1.0 MG/DL Aspartate Amino Transf (AST/SGOT) 25 5-34 U/L Alanine Aminotransferase (ALT/SGPT) 16 0-55 U/L Alkaline Phosphatase 138 H 40-136 U/L Total Creatine Kinase 60 29-168 U/L Creatine Kinase MB 1.7 <6.6 NG/ML Myoglobin 38.9 10.0-92.0 NG/ML Troponin I < 0.028 <0.028 NG/ML Total Protein 8.0 6.4-8.2 GM/DL Albumin 4.1 3.2-4.5 GM/DL Amylase Level 42 25-125 U/L Lipase 17 8-78 U/L TSH [place] Testing 1.43 0.35-4.94 UIU/ML Prothrombin Time 12.8 12.2-14.7 SEC INR Comment 0.9 0.8-1.4 Activated Partial Thromboplast Time 28 24-35 SEC My Orders Orders - ONEDYA CHOU DO Ed Iv/Invasive Line Start (01/12/20 12:00) Ekg Tracing (01/12/20 12:00) Monitor-Rhythm Ecg Trace Only (01/12/20 12:00) Amylase (01/12/20 12:00) Cbc With Automated Diff (01/12/20 12:00) Comprehensive Metabolic Panel (01/12/20 12:00) Creatine Kinase (01/12/20 12:00) Creatine Kinase Mb (01/12/20 12:00) Lipase (01/12/20 12:00) Magnesium (01/12/20 12:00) Protime With Inr (01/12/20 12:00) Partial Thromboplastin Time (01/12/20 12:00) Thyroid Analyzer (01/12/20 12:00) Ua Culture If Indicated (01/12/20 12:00) Myoglobin Serum (01/12/20 12:00) Troponin I (01/12/20 12:00) Ct Cervical Spine Wo (01/12/20 12:28) Ed Iv/Invasive Line Start (01/12/20 13:27) Ns Iv 1000 Ml (Sodium Chloride 0.9%) (01/12/20 13:27) Insulin (Regular) Human (Novolin R (Per (01/12/20 13:30) Vital Signs/I&O Capillary Refill : Less Than 3 Seconds Blood Pressure Mean: 114 Progress Note : Progress Note NO NAUSEA OR DIARRHEA DURING ER STAY NO COMPLAINTS OF HEADACHE DURING ER STAY ADVISED PT OF NEED FOR IV FLUIDS AND INSULIN FOR ELEVATED BLOOD GLUCOSE AND ELECTROLYTE ABNORMALITIES. 1345--PT SIGNING OUT AMA BECAUSE SHE "DOESN'T WANT AN IV" . PT ADVISES OF RISKS OF WORSENING OF CONDITION, INCLUDING DKA/COMA/. Diagnostic Imaging Comments CT CERVICAL SPINE--PER RADIOLOGIST REPORT AT 1326 IMPRESSION: Postop changes of C5 through C7 ACDF. No acute bony abnormality is detected. Reviewed: Reviewed by Me Departure Impression Primary Impression: Left against medical advice Additional Impression: Diabetes mellitus, insulin dependent (IDDM), uncontrolled Disposition: 07 AGAINST MEDICAL ADVICE Condition: Against Medical Advice Departure-Patient Inst. Referrals: PILLO FRANCOIS MD (PCP/Family) Primary Care Physician ONEYDA CHOU DO Jan 12, 2020 13:27
[2020-01-12] MEDS ORDERED: inSUlin (REGULAR) HUMAN 1 UNIT/0.01 ML (CHARGE PER UNIT) IV ONE (13:30)
[2020-01-12 13:40] LABS: TSH (THYROID ANALYZER) 1.43 UIU/ML (0.35-4.94)
== END 2020-01-12 13:52 | disposition left against medical advice (07) ==
LOC: EDUNIT# 11:31 → ER 11:35
DX: E11.65 Type 2 diabetes mellitus with hyperglycemia (principal); F17.210 Nicotine dependence, cigarettes, uncomplicated; Z98.1 Arthrodesis status; Z95.1 Presence of aortocoronary bypass graft; J44.9 Chronic obstructive pulmonary disease, unspecified; I25.10 Atherosclerotic heart disease of native coronary artery without angina pectoris; E78.00 Pure hypercholesterolemia, unspecified; I10 Essential (primary) hypertension; E11.51 Type 2 diabetes mellitus with diabetic peripheral angiopathy without gangrene; K21.9 Gastro-esophageal reflux disease without esophagitis; K59.09 Other constipation; K52.9 Noninfective gastroenteritis and colitis, unspecified; M54.9 Dorsalgia, unspecified; E03.9 Hypothyroidism, unspecified; Z79.4 Long term (current) use of insulin; F41.9 Anxiety disorder, unspecified; F32.9 Major depressive disorder, single episode, unspecified
CPT/HCPCS: 36415; 72125; 80053; 81000; 82150; 82550; 82553; 83690; 83735; 83874; 84443; 84484; 85025; 85610; 85730; 93005; 93041

== ENCOUNTER → 2020-04-06 | Outpatient (CLI) | payer OTHER ==
[~2020-04-06] MED LIST changes: +ASPI-1238 PO; -ASPI-983 PO
[2020-04-06 13:42] LABS: CLARITY,URINE CLEAR; COLOR,URINE YELLOW; GLUCOSE, URINE (UA) TRACE (NEGATIVE); KETONES,URINE TRACE (NEGATIVE); LEUKOCYTE ESTERASE ,URINE NEGATIVE (NEGATIVE); NITRITE,URINE NEGATIVE (NEGATIVE); PROTEIN,URINE 3+ (NEGATIVE)
--- NOTE | 2020-04-06 13:42 | Diagnostic Imaging Report ---
INDICATION: Cough. TECHNIQUE/COMPARISON: PA and lateral views of the chest were obtained with comparison made to the study of 07/28/2019. FINDINGS: The heart size and pulmonary vascularity are within normal limits. The lungs are clear bilaterally. There are multiple old left rib fractures. Surgical findings are again noted in the cervical spine and mediastinum. IMPRESSION: Unremarkable chest. Dictated by: Dictated on workstation # [id number]
[2020-04-06 13:44] LABS: HEMOGLOBIN 14.3 g/dL (11.5-16.0); MEAN PLATELET VOLUME 9.8 fL (9.0-12.2)
[2020-04-06 13:50] LABS: BACTERIA,URINE MODERATE /HPF; BILIRUBIN,URINE 2+ (NEGATIVE); RBC,URINE RARE /HPF; SQUAMOUS EPITHELIAL CELL,UR 25-50 /HPF; WBC,URINE RARE /HPF
[2020-04-06 14:01] LABS: ALBUMIN 3.7 GM/DL (3.2-4.5); BILIRUBIN,TOTAL 0.4 MG/DL (0.1-1.0); CREATININE SERUM 1.54 MG/DL (0.60-1.30); POTASSIUM 4.1 MMOL/L (3.6-5.0); TOTAL PROTEIN 7.1 GM/DL (6.4-8.2)
== END ==
LOC: RAD 13:06
PROVIDERS: ATTEND Physician Assistant
DX: J44.1 Chronic obstructive pulmonary disease with (acute) exacerbation (principal); J06.9 Acute upper respiratory infection, unspecified; R11.2 Nausea with vomiting, unspecified
CPT/HCPCS: 36415; 71046; 80053; 81000; 85027; 86141

== ENCOUNTER → 2020-04-07 | Outpatient (CLI) | payer OTHER | LOC: LABNPT 06:02 | PROVIDERS: ATTEND Internal Medicine | DX: Z53.9 Procedure and treatment not carried out, unspecified reason (principal); J44.1 Chronic obstructive pulmonary disease with (acute) exacerbation; J06.9 Acute upper respiratory infection, unspecified ==

== ENCOUNTER 2020-08-05 11:46 | Emergency (ER) | payer OTHER ==
[~2020-08-05] VITALS: Ht 165 cm; Wt 54.4 kg
--- NOTE | 2020-08-05 12:40 | NUR ---
TO ROOM NO CHANGE FROM TRIAGE.
--- NOTE | 2020-08-05 12:48 | ED General ---
General Chief Complaint: General Problems/Pain Stated Complaint: IV FLUIDS, STEPHENSON, LG FEVER, [place] Nursing Triage Note: PT STATES SHE HAD HER SECOND COVID SHOT LAST WEEK, 07/29/20, AND HAS NOT FELT RIGHT SINCE. TYPE I DIABETIC AND SUGARS HAVE BEEN RUNNING HIGH, MUNIRA CANTOR PUT PT ON ABX YESTERDAY BUT DID NOT RUN ANY TESTS, THOUGHT THERE MAY BE AN UNDERLYING INFECTION. SUGAR READ HIGH THIS A.M. PT A LITTLE UNSTEADY ON HER FEET. NAUSEA WITH A LITTLE VOMITING, NO DIARRHEA. Nursing Sepsis Screen: No Definite Risk Source of Information: Patient Exam Limitations: No Limitations History of Present Illness Date Seen by Provider: Aug 05, 2020 Time Seen by Provider: 12:30 Initial Comments to ER with reports of possibly needing IV fluids. She has had a headache low- grade fever nausea and vomiting as well as high blood sugars. She is a type I diabetic sugars have been in the 400+ range. Symptoms began after receiving her second Covid vaccination on 07/29/2020. Timing/Duration: 1-2 Days Severity: Moderate Associated Systoms: Denies Symptoms Allergies and Home Medications Allergies Coded Allergies: ciprofloxacin (Verified Allergy, Mild, redness and itching , 12/04/18) redness and itching at iv site Home Medications Albuterol Sulfate 1 Puff Puff, 2 PUFF IH Q4H PRN for SHORTNESS OF BREATH, (Reported) 1 PUFF = 90 MCG Aspirin 81 Mg Tab.chew, 81 MG PO DAILY, (Reported) Atorvastatin Calcium 40 Mg Tablet, 40 MG PO DAILY, (Reported) LAST FILLED #30 09-26-18 Buspirone HCl 5 Mg Tablet, 5 MG PO BID, (Reported) Cefdinir 300 Mg Capsule, 300 MG PO BID Prescribed by: TONG MAGALLON on 12/06/18 1053 Clopidogrel Bisulfate 75 Mg Tablet, 75 MG PO DAILY, (Reported) LAST FILLED #30 10-21-18 Gabapentin 100 Mg Capsule, 100 MG PO HS, (Reported) LAST FILLED #30 09-26-18 Insulin Aspart 100 Unit/1 Ml Susp, 12 UNITS SQ TIDWM, (Reported) LAST FILLED #3 VIALS 07-30-18 Insulin Determir 1,000 Units/10 Ml Soln, 15 UNITS SQ BID, (Reported) LAST FILLED #3 VIALS 06-28-18 Levothyroxine Sodium 175 Mcg Tablet, 175 MCG PO DAILY, (Reported) Metoprolol Succinate 50 Mg Tab.er.24h, 50 MG PO DAILY, (Reported) Oxycodone HCl/Acetaminophen 1 Each Tablet, 1 TAB PO Q4H PRN for PAIN-MODERATE Prescribed by: TONG MAGALLON on 12/06/18 1053 Paroxetine HCl 40 Mg Tablet, 40 MG PO DAILY, (Reported) Tiotropium [place] 4 Gm Mist.inhal, 2 PUFF IH DAILY, (Reported) Patient Home Medication List Home Medication List Reviewed: Yes Review of Systems Review of Systems Constitutional: see HPI EENTM: see HPI Respiratory: no symptoms reported Cardiovascular: no symptoms reported Genitourinary: no symptoms reported Musculoskeletal: no symptoms reported Skin: no symptoms reported Psychiatric/Neurological: No Symptoms Reported Hematologic/Lymphatic: No Symptoms Reported Immunological/Allergic: no symptoms reported Past Bucjpai-Jjkupq-Gvwajt Hx Patient Social History Alcohol Use: Denies Use Smoking Status: Current Everyday Smoker Type Used: Cigarettes 2nd Hand Smoke Exposure: No Recent Infectious Disease Expo: No Recent Hopitalizations: No Immunizations Up To Date Tetanus Booster (TDap): Unknown PED Vaccines UTD: No Date of Pneumonia Vaccine: Apr 02, 2013 Date of Influenza Vaccine: Apr 07, 2016 Seasonal Allergies Seasonal Allergies: No Past Medical History Surgeries: Yes (SEE BELOW) Abdominal, Cardiac, CABG, 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, Oophorectomy, Orthopedic, Thyroidectomy, Vascular Surgery Respiratory: Yes COPD Cardiac: Yes (RIGHT ILIAC STENT; 4 VESSEL CABG AND RIGHT CAROTID ENDARTERECTOMY 12/2015) Coronary Artery Disease, High Cholesterol, Hypertension, Peripheral Vascular Neurological: Yes Headaches /Migraines, Neuropathy Reproductive Disorders: No Female Reproductive Disorders: Denies 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, 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 Sexually Transmitted Disease: No HIV/AIDS: No Genitourinary: No Gastrointestinal: Yes Gastroesophageal Reflux, Chronic Constipation, Chronic Diarrhea, Hiatal Hernia Musculoskeletal: Yes (CHRONIC NECK PAIN--S/P CERVICAL FUSION) Degenerate Disk Disease, Chronic Back Pain Endocrine: Yes Diabetes, Insulin dep, Hypothyroidsim HEENT: No Loss of Vision: Denies Hearing Impairment: Denies Cancer: No Psychosocial: Yes Anxiety, Depression Integumentary: Yes (PREVIOUS ABCESSES) Blood Disorders: No Adverse Reaction/Blood Tranf: No (has never had a transfusion) Family Medical History Cancer G8 BROTHER, Onset:Unknown G8 BROTHER, Onset:Unknown Cancer of colon G8 BROTHER, Onset:Unknown Chest pain 19 MOTHER, Onset:Unknown Congestive heart failure 19 FATHER, Onset:60 years & older Family history: Alzheimer's disease 19 MOTHER, Onset:50's - 60 Family history: Arthritis 19 MOTHER, Onset:Unknown Family history: Asthma 19 FATHER, Onset:Unknown Family history: Cardiovascular disease 19 MOTHER, Onset:50 - Family history: Coronary thrombosis 19 MOTHER, Onset:Unknown Family history: Diabetes mellitus 19 MOTHER, Onset:Unknown Family history: Hypertension 19 MOTHER, Onset:50s - 60 Family history: Thyroid disorder 19 MOTHER, Onset:50's - 60 Heart disease 19 MOTHER, Onset:50 - Human immunodeficiency virus (HIV) seropositivity G8 BROTHER, Onset:40's - 50 Myocardial infarction 19 MOTHER, Onset:50s - No Family History of: Abdominal aortic aneurysm [place]'s disease Alcoholism Aphasia Cataract Congenital heart disease Cystic fibrosis Dementia Dysphagia Family history: Allergy Family history: Breast disease Family history: Gastrointestinal disease Family history: Glaucoma Family history: Osteoporosis Headache Hearing loss Hereditary disease History of - anemia History of - disorder History of - respiratory disease History of drug abuse Hypercholesterolemia Infertile Kidney disease Malignant neoplasm of lung Parkinson's disease Prostate cancer Psychotic disorder Seizure disorder Stroke Tuberculosis Visual impairment PSH: -RIGHT ILIAC ARTERY STENT -4 VESSEL CABG 12/2015 -RIGHT CAROTID ENDARTERECTOMY 12/2015 -TONSILLECTOMY -HYSTERECTOMY/BSO -LAPAROSCOPIC [place]TA FUNDOPLICATION -CERVICAL SPINE FUSION Physical Exam Vital Signs Vital Signs - First Documented 08/05/20 12:18 Temp 36.9 Pulse 88 Resp 20 B/P (MAP) 101/60 (74) Pulse Ox 100 O2 Delivery Room Air Capillary Refill : Less Than 3 Seconds Height, Weight, BMI Height: 5'5.00" Weight: 125lbs. 0.0oz. 56.803540ep; 19.00 BMI Method:Stated General Appearance: No Apparent Distress, WD/WN, Thin Eyes: Bilateral Eye Normal Inspection, Bilateral Eye PERRL, Bilateral Eye EOMI HEENT: PERRL/EOMI, TMs Normal Neck: Full Range of Motion, Normal Inspection Respiratory: No Accessory Muscle Use, No Respiratory Distress Cardiovascular: Regular Rate, Rhythm, Normal Peripheral Pulses, Other (Systolic murmur grade 4/6) Gastrointestinal: Normal Bowel Sounds, Non Tender, Soft Extremity: Normal Capillary Refill, Normal Inspection Neurologic/Psychiatric: Alert, Oriented x3, Other (She does have a wide stance gait getting out of the wheelchair into bed, somewhat ataxic. There is no upper extremity ataxia. Her speech is intermittently slurred almost drunken.) Skin: Normal Color, Warm/Dry Progress/Results/Core Measures Suspected Sepsis Recent Fever Within 48 Hours: No Infection Criteria Present: None New/Unexplained Altered Menta: No Sepsis Screen: No Definite Risk SIRS Temperature: Pulse: 88 Respiratory Rate: 20 Laboratory Tests 08/05/20 12:40: White Blood Count 16.7H Blood Pressure 101 /60 Mean: 74 Laboratory Tests 08/05/20 12:40: Creatinine 1.47H, Platelet Count 398, Total Bilirubin 0.3 Results/Orders Lab Results Laboratory Tests Test 08/05/20 12:40 08/05/20 14:23 Range/Units White Blood Count 16.7 H 4.3-11.0 10^3/uL Red Blood Count 4.63 3.80-5.11 10^6/uL Hemoglobin 13.8 11.5-16.0 g/dL Hematocrit 42 35-52 % Mean Corpuscular Volume 90 80-99 fL Mean Corpuscular Hemoglobin 30 25-34 pg Mean Corpuscular Hemoglobin Concent 33 32-36 g/dL Red Cell Distribution Width 13.3 10.0-14.5 % Platelet Count 398 130-400 10^3/uL Mean Platelet Volume 9.7 9.0-12.2 fL Immature Granulocyte % (Auto) 1 % Neutrophils (%) (Auto) 80 H 42-75 % Lymphocytes (%) (Auto) 13 12-44 % Monocytes (%) (Auto) 5 0-12 % Eosinophils (%) (Auto) 2 0-10 % Basophils (%) (Auto) 1 0-10 % Neutrophils # (Auto) 13.3 H 1.8-7.8 10^3/uL Lymphocytes # (Auto) 2.1 1.0-4.0 10^3/uL Monocytes # (Auto) 0.8 0.0-1.0 10^3/uL Eosinophils # (Auto) 0.3 0.0-0.3 10^3/uL Basophils # (Auto) 0.2 H 0.0-0.1 10^3/uL Immature Granulocyte # (Auto) 0.1 0.0-0.1 10^3/uL Neutrophils % (Manual) 82 % Lymphocytes % (Manual) 10 % Monocytes % (Manual) 8 % Eosinophils % (Manual) 0 % Basophils % (Manual) 0 % Band Neutrophils 0 % Blood Morphology Comment NORMAL Erythrocyte Sedimentation Rate 18 0-30 MM/HR Sodium Level 132 L 135-145 MMOL/L Potassium Level 5.2 H 3.6-5.0 MMOL/L Chloride Level 102 98-107 MMOL/L Carbon Dioxide Level 16 L 21-32 MMOL/L Anion Gap 14 5-14 MMOL/L Blood Urea Nitrogen 33 H 7-18 MG/DL Creatinine 1.47 H 0.60-1.30 MG/DL Estimat Glomerular Filtration Rate 37 BUN/Creatinine Ratio 22 Glucose Level 311 H 70-105 MG/DL Calcium Level 8.6 8.5-10.1 MG/DL Corrected Calcium 9.2 8.5-10.1 MG/DL Total Bilirubin 0.3 0.1-1.0 MG/DL Aspartate Amino Transf (AST/SGOT) 25 5-34 U/L Alanine Aminotransferase (ALT/SGPT) 15 0-55 U/L Alkaline Phosphatase 131 40-136 U/L C-Reactive Protein High Sensitivity 0.08 0.00-0.50 MG/DL Total Protein 7.0 6.4-8.2 GM/DL Albumin 3.3 3.2-4.5 GM/DL Beta-Hydroxybutyrate (Chem panel) 0.12 0.00-0.27 MMOL/L Procalcitonin 0.08 <0.10 NG/ML Urine Color YELLOW Urine Clarity CLEAR Urine pH 5.5 5-9 Urine Specific [place] >=1.030 1.016-1.022 Urine Protein 3+ H NEGATIVE Urine Glucose (UA) 2+ H NEGATIVE Urine Ketones NEGATIVE NEGATIVE Urine Nitrite NEGATIVE NEGATIVE Urine Bilirubin 1+ H NEGATIVE Urine Urobilinogen 0.2 < = 1.0 MG/DL Urine Leukocyte Esterase NEGATIVE NEGATIVE Urine RBC (Auto) 1+ H NEGATIVE Urine RBC 2-5 H /HPF Urine WBC 2-5 /HPF Urine Squamous Epithelial Cells 10-25 H /HPF Urine Crystals NONE /LPF Urine Bacteria FEW H /HPF Urine Casts PRESENT /LPF Urine Hyaline Casts 5-10 H /LPF Urine Mucus NEGATIVE /LPF Urine Culture Indicated NO My Orders Orders - HARRISON MOREJON LEAD SOFTWARE TESTER Ua Culture If Indicated (08/05/20 12:34) Beta Hydroxybutyrate (08/05/20 12:34) Cbc With Automated Diff (08/05/20 12:34) Comprehensive Metabolic Panel (08/05/20 12:34) Chest 1 View, Ap/Pa Only (08/05/20 12:34) Ed Iv/Invasive Line Start (08/05/20 12:34) Mri Brain W/O Contrast (08/05/20 12:48) Echo W Doppler/Color Flow (08/05/20 12:48) Erythrocyte Sedimentation Rate (08/05/20 12:48) Hs C Reactive Protein (08/05/20 12:48) Lactated Ringers (Lr 1000 Ml Iv Solution (08/05/20 13:00) Manual Differential (08/05/20 12:40) Procalcitonin (Pct) (08/05/20 13:12) Lactated Ringers (Lr 1000 Ml Iv Solution (08/05/20 14:30) Vital Signs/I&O 08/05/20 12:18 Temp 36.9 Pulse 88 Resp 20 B/P (MAP) 101/60 (74) Pulse Ox 100 O2 Delivery Room Air Capillary Refill : Less Than 3 Seconds Blood Pressure Mean: 74 Diagnostic Imaging Diagonstic Imaging: MRI Comments NAME: TIFFANY GRAMAJO [facility] REC#: [id number] PT STATUS: REG ER : 1960 PHYSICIAN: HARRISON MOREJON APRN ADMIT DATE: 08/05/20/ER Draft Date of Exam:08/05/20 MRI BRAIN W/O CONTRAST PROCEDURE: MR imaging of the brain without contrast. TECHNIQUE: Multiplanar, multisequence MR imaging of the brain was performed without contrast. INDICATION: Ataxia and headache. No prior studies are available for comparison. The ventricles and sulci are within normal limits. Minimal periventricular white matter changes are noted, likely on the basis of chronic microvascular ischemia. Normal expected flow-voids within the carotid siphons are seen. Diffusion-weighted images are without diffusion restriction to suggest acute ischemia. No acute intra-axial or extra-axial hemorrhage is detected. Corpus callosum is unremarkable. Sella and parasellar structures are unremarkable. IMPRESSION: Unremarkable MRI of the brain without contrast. No acute features detected. Dictated on workstation # [id number] Dict: 08/05/20 1415 Trans: 08/05/20 1419 [facility] [id number] Interpreted by: ISHMAEL SORTO MD Electronically signed by: Departure Impression Primary Impression: Hyperglycemia due to type 1 diabetes mellitus Additional Impressions: Weak Dehydration Disposition: 01 HOME, SELF-CARE Condition: Stable Departure-Patient Inst. Decision time for Depature: 14:52 Referrals: PILLO FRANCOIS MD (PCP/Family) Primary Care Physician Patient Instructions: Weakness ED Add. Discharge Instructions: 1. Drink plenty of fluids. Return to ER for any worsening. Follow-up with your doctor this week for recheck. All discharge instructions reviewed with patient and/or family. Voiced understanding. Copy Copies To 1: PILLO FRANCOIS MD, PETER J APRN Aug 05, 2020 12:48
[2020-08-05 12:50] LABS: BASOPHILS # (AUTO) 0.2 10^3/uL (0.0-0.1); BASOPHILS % (AUTO) 1 % (0-10); EOSINOPHILS # (AUTO) 0.3 10^3/uL (0.0-0.3); EOSINOPHILS % (AUTO) 2 % (0-10); HEMATOCRIT 42 % (35-52); HEMOGLOBIN 13.8 g/dL (11.5-16.0); LYMPHOCYTES # (AUTO) 2.1 10^3/uL (1.0-4.0); LYMPHOCYTES % (AUTO) 13 % (12-44); MEAN CORPUSCULAR HEMOGLOBIN 30 pg (25-34); MEAN CORPUSCULAR HGB CONC 33 g/dL (32-36); MEAN CORPUSCULAR VOLUME 90 fL (80-99); MEAN PLATELET VOLUME 9.7 fL (9.0-12.2); MONOCYTES # (AUTO) 0.8 10^3/uL (0.0-1.0); MONOCYTES % (AUTO) 5 % (0-12); NEUTROPHILS # (AUTO) 13.3 10^3/uL (1.8-7.8); NEUTROPHILS % (AUTO) 80 % (42-75); PLATELET COUNT 398 10^3/uL (130-400); WHITE BLOOD COUNT 16.7 10^3/uL (4.3-11.0)
[2020-08-05] MEDS: LACTATED RINGERS 1,000 ML IV SCH ×4 (12:50→15:07)
[2020-08-05 13:05] LABS: ALBUMIN 3.3 GM/DL (3.2-4.5)
[2020-08-05 13:06] LABS: CALCIUM 8.6 MG/DL (8.5-10.1)
[2020-08-05 13:09] LABS: BILIRUBIN,TOTAL 0.3 MG/DL (0.1-1.0)
[2020-08-05 13:10] LABS: BAND NEUTROPHILS 0 %; BASOPHILS % (MANUAL) 0 %; EOSINOPHILS % (MANUAL) 0 %; LYMPHOCYTES % (MANUAL) 10 %; MONOCYTES % (MANUAL) 8 %; NEUTROPHILS % (MANUAL) 82 %; RBC MORPH NORMAL
[2020-08-05 13:11] LABS: CREATININE SERUM 1.47 MG/DL (0.60-1.30)
[2020-08-05 13:12] LABS: POTASSIUM 5.2 MMOL/L (3.6-5.0)
--- NOTE | 2020-08-05 13:35 | Diagnostic Imaging Report ---
INDICATION: Malaise. The patient reports having 2nd COVID shot. Comparison with 04/06/2020. FINDINGS: Portable chest. Cardiomegaly with median sternotomy changes are present. Lungs are well-aerated. There is some atelectasis or scarring along the right middle lobe. The lungs are otherwise clear. There are old healed rib fractures noted along the left chest wall. No pneumothorax or pleural effusion. IMPRESSION: 1. Cardiomegaly without evidence of congestive failure. 2. Scarring or atelectasis within the right middle lobe. Dictated by: Dictated on workstation # [id number]
--- NOTE | 2020-08-05 14:19 | Diagnostic Imaging Report ---
PROCEDURE: MR imaging of the brain without contrast. TECHNIQUE: Multiplanar, multisequence MR imaging of the brain was performed without contrast. INDICATION: Ataxia and headache. No prior studies are available for comparison. The ventricles and sulci are within normal limits. Minimal periventricular white matter changes are noted, likely on the basis of chronic microvascular ischemia. Normal expected flow-voids within the carotid siphons are seen. Diffusion-weighted images are without diffusion restriction to suggest acute ischemia. No acute intra-axial or extra-axial hemorrhage is detected. Corpus callosum is unremarkable. Sella and parasellar structures are unremarkable. IMPRESSION: Unremarkable MRI of the brain without contrast. No acute features detected. Dictated by: Dictated on workstation # [id number]
[2020-08-05 14:31] LABS: CLARITY,URINE CLEAR; COLOR,URINE YELLOW; GLUCOSE, URINE (UA) 2+ (NEGATIVE); KETONES,URINE NEGATIVE (NEGATIVE); LEUKOCYTE ESTERASE ,URINE NEGATIVE (NEGATIVE); NITRITE,URINE NEGATIVE (NEGATIVE); PH,URINE 5.5 (5-9); PROTEIN,URINE 3+ (NEGATIVE)
[2020-08-05 14:42] LABS: BACTERIA,URINE FEW /HPF; BILIRUBIN,URINE 1+ (NEGATIVE)
--- NOTE | 2020-08-05 15:45 | NUR ---
TO ROOM FLUIDS CON'T TO INFUSE. PATIENT REPORTS CON'T TO FEELING BETTER.
[2020-08-05 16:12] VITALS: BP 130/70
== END 2020-08-05 16:12 | disposition home or self-care (01) ==
LOC: EDUNIT# 11:46 → ER 11:48
DX: E10.65 Type 1 diabetes mellitus with hyperglycemia (principal); R53.1 Weakness; E86.0 Dehydration; G89.29 Other chronic pain; M54.9 Dorsalgia, unspecified; E78.00 Pure hypercholesterolemia, unspecified; I10 Essential (primary) hypertension; E03.9 Hypothyroidism, unspecified; F41.9 Anxiety disorder, unspecified; F32.9 Major depressive disorder, single episode, unspecified; J44.9 Chronic obstructive pulmonary disease, unspecified; F17.210 Nicotine dependence, cigarettes, uncomplicated; Z88.1 Allergy status to other antibiotic agents; Z82.49 Family history of ischemic heart disease and other diseases of the circulatory system; Z80.0 Family history of malignant neoplasm of digestive organs; Z82.61 Family history of arthritis; Z83.3 Family history of diabetes mellitus; Z95.1 Presence of aortocoronary bypass graft; Z79.890 Hormone replacement therapy; Z79.891 Long term (current) use of opiate analgesic; Z79.82 Long term (current) use of aspirin
CPT/HCPCS: 36415; 70551; 71045; 80053; 81000; 82010; 84145; 85007; 85027; 85652; 86141; 93306

== ENCOUNTER 2020-08-16 15:22 | Emergency (ER) | payer OTHER ==
[~2020-08-16] VITALS: Ht 165.1 cm; Wt 54.4 kg
[2020-08-16] MEDS ORDERED: NS IV 1000 ML 1,000 ML ONE (15:38)
[2020-08-16] MEDS ORDERED: ONDANSETRON 4 MG/2 ML (SDV) Z0FRAN IVP ONE (15:45)
[2020-08-16] MEDS ORDERED: NS IV 1000 ML 1,000 ML IV SCH (15:45)
[2020-08-16 15:57] LABS: BASOPHILS # (AUTO) 0.2 10^3/uL (0.0-0.1); BASOPHILS % (AUTO) 1 % (0-10); EOSINOPHILS # (AUTO) 0.3 10^3/uL (0.0-0.3); EOSINOPHILS % (AUTO) 2 % (0-10); HEMATOCRIT 39 % (35-52); HEMOGLOBIN 13.1 g/dL (11.5-16.0); LYMPHOCYTES # (AUTO) 2.2 10^3/uL (1.0-4.0); LYMPHOCYTES % (AUTO) 18 % (12-44); MEAN CORPUSCULAR HEMOGLOBIN 30 pg (25-34); MEAN CORPUSCULAR HGB CONC 33 g/dL (32-36); MEAN CORPUSCULAR VOLUME 89 fL (80-99); MEAN PLATELET VOLUME 9.6 fL (9.0-12.2); MONOCYTES % (AUTO) 8 % (0-12); NEUTROPHILS # (AUTO) 8.8 10^3/uL (1.8-7.8); NEUTROPHILS % (AUTO) 70 % (42-75); PLATELET COUNT 380 10^3/uL (130-400); WHITE BLOOD COUNT 12.5 10^3/uL (4.3-11.0)
--- NOTE | 2020-08-16 15:58 | ED General ---
General Chief Complaint: General Problems/Pain Stated Complaint: ABNORMAL LABS Source of Information: Patient Exam Limitations: No Limitations History of Present Illness Date Seen by Provider: Aug 16, 2020 Time Seen by Provider: 15:30 Initial Comments Patient presents to the ER by private conveyance from home with chief complaint that 5 days ago she had labs drawn and mag lab and her primary care provider at Dr. Francois's office called to let her know that her labs look worse than before and she should present immediately to the ER for reevaluation. The patient says she has had some nausea and has had problems lately with dehydration related to her blood sugar being under poor control. She is a type II diabetic on 15 units Levemir twice daily. She says this morning her blood sugar was around 350 and she took 12 units of fast acting insulin and another 10 units when she got to work because it was in the 250 range. Before she ate it was 85. She says she has not had good control on her diabetes. She is not having any pain just generalized aches but she associates that with having just received her second dose of COVID-19 vaccination about a week or 2 ago. She does not know off the top of her head nor did she is accompanied with a copy of her labs. She denies dysuria or frequency. She is not having diarrhea or constipation. Allergies and Home Medications Allergies Coded Allergies: ciprofloxacin (Verified Allergy, Mild, redness and itching , 12/04/18) redness and itching at iv site Home Medications Albuterol Sulfate 1 Puff Puff, 2 PUFF IH Q4H PRN for SHORTNESS OF BREATH, (Reported) 1 PUFF = 90 MCG Aspirin 81 Mg Tab.chew, 81 MG PO DAILY, (Reported) Atorvastatin Calcium 40 Mg Tablet, 40 MG PO DAILY, (Reported) LAST FILLED #30 09-26-18 Buspirone HCl 5 Mg Tablet, 5 MG PO BID, (Reported) Cefdinir 300 Mg Capsule, 300 MG PO BID Prescribed by: TONG MAGALLON on 12/06/18 1053 Clopidogrel Bisulfate 75 Mg Tablet, 75 MG PO DAILY, (Reported) LAST FILLED #30 10-21-18 Gabapentin 100 Mg Capsule, 100 MG PO HS, (Reported) LAST FILLED #30 09-26-18 Insulin Aspart 100 Unit/1 Ml Susp, 12 UNITS SQ TIDWM, (Reported) LAST FILLED #3 VIALS 07-30-18 Insulin Determir 1,000 Units/10 Ml Soln, 15 UNITS SQ BID, (Reported) LAST FILLED #3 VIALS 06-28-18 Levothyroxine Sodium 175 Mcg Tablet, 175 MCG PO DAILY, (Reported) Metoprolol Succinate 50 Mg Tab.er.24h, 50 MG PO DAILY, (Reported) Oxycodone HCl/Acetaminophen 1 Each Tablet, 1 TAB PO Q4H PRN for PAIN-MODERATE Prescribed by: TONG MAGALLON on 12/06/18 1053 Paroxetine HCl 40 Mg Tablet, 40 MG PO DAILY, (Reported) Tiotropium [place] 4 Gm Mist.inhal, 2 PUFF IH DAILY, (Reported) Patient Home Medication List Home Medication List Reviewed: Yes Review of Systems Review of Systems Constitutional: No chills, No fever EENTM: No ear discharge, No ear pain Respiratory: No cough, No short of breath Cardiovascular: No edema, No palpitations Gastrointestinal: No abdominal pain, No nausea, No vomiting Genitourinary: No discharge, No dysuria Musculoskeletal: No back pain, No joint pain Psychiatric/Neurological: Anxiety; Denies Depressed All Other Systems Reviewed Negative Unless Noted: Yes Past Vsdukpq-Aarmgv-Mxmuup Hx Patient Social History Alcohol Use: Denies Use Smoking Status: Current Everyday Smoker Type Used: Cigarettes 2nd Hand Smoke Exposure: No Recent Hopitalizations: No Immunizations Up To Date Tetanus Booster (TDap): Unknown PED Vaccines UTD: No Date of Pneumonia Vaccine: Apr 02, 2013 Date of Influenza Vaccine: Apr 07, 2016 Seasonal Allergies Seasonal Allergies: No Past Medical History Surgeries: Yes (SEE BELOW) Abdominal, Cardiac, CABG, 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, Oophorectomy, Orthopedic, Thyroidectomy, Vascular Surgery Respiratory: Yes COPD Cardiac: Yes (RIGHT ILIAC STENT; 4 VESSEL CABG AND RIGHT CAROTID ENDARTERECTOMY 12/2015) Coronary Artery Disease, High Cholesterol, Hypertension, Peripheral Vascular Neurological: Yes Headaches /Migraines, Neuropathy Reproductive Disorders: No Female Reproductive Disorders: Denies 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[employer]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, Menopausal Sexually Transmitted Disease: No HIV/AIDS: No Genitourinary: No Gastrointestinal: Yes Gastroesophageal Reflux, Chronic Constipation, Chronic Diarrhea, Hiatal Hernia Musculoskeletal: Yes (CHRONIC NECK PAIN--S/P CERVICAL FUSION) Degenerate Disk Disease, Chronic Back Pain Endocrine: Yes Diabetes, Insulin dep, Hypothyroidsim HEENT: No Loss of Vision: Denies Hearing Impairment: Denies Cancer: No Psychosocial: Yes Anxiety, Depression Integumentary: Yes (PREVIOUS ABCESSES) Blood Disorders: No Adverse Reaction/Blood Tranf: No (has never had a transfusion) Family Medical History Cancer G8 BROTHER, Onset:Unknown G8 BROTHER, Onset:Unknown Cancer of colon G8 BROTHER, Onset:Unknown Chest pain 19 MOTHER, Onset:Unknown Congestive heart failure 19 FATHER, Onset:60 years & older Family history: Alzheimer's disease 19 MOTHER, Onset:50's - 60 Family history: Arthritis 19 MOTHER, Onset:Unknown Family history: Asthma 19 FATHER, Onset:Unknown Family history: Cardiovascular disease 19 MOTHER, Onset:50's - 60 Family history: Coronary thrombosis 19 MOTHER, Onset:Unknown Family history: Diabetes mellitus 19 MOTHER, Onset:Unknown Family history: Hypertension 19 MOTHER, Onset:50's - 60 Family history: Thyroid disorder 19 MOTHER, Onset:50's - 60 Heart disease 19 MOTHER, Onset:50's - 60 Human immunodeficiency virus (HIV) seropositivity G8 BROTHER, Onset:40's - 50 Myocardial infarction 19 MOTHER, Onset:50's - 60 No Family History of: Abdominal aortic aneurysm [place]'s disease Alcoholism Aphasia Cataract Congenital heart disease Cystic fibrosis Dementia Dysphagia Family history: Allergy Family history: Breast disease Family history: Gastrointestinal disease Family history: Glaucoma Family history: Osteoporosis Headache Hearing loss Hereditary disease History of - anemia History of - disorder History of - respiratory disease History of drug abuse Hypercholesterolemia Infertile Kidney disease Malignant neoplasm of lung Parkinson's disease Prostate cancer Psychotic disorder Seizure disorder Stroke Tuberculosis Visual impairment PSH: -RIGHT ILIAC ARTERY STENT -4 VESSEL CABG 12/2015 -RIGHT CAROTID ENDARTERECTOMY 12/2015 -TONSILLECTOMY -HYSTERECTOMY/BSO -LAPAROSCOPIC RENETTA FUNDOPLICATION -CERVICAL SPINE FUSION Physical Exam Vital Signs Vital Signs - First Documented 08/16/20 15:28 Temp 36.7 Pulse 89 Resp 17 B/P (MAP) 162/123 (136) Pulse Ox 96 O2 Delivery Room Air Capillary Refill : Height, Weight, BMI Height: 5'5.00" Weight: 125lbs. 0.0oz. 56.385433nl; 19.00 BMI Method:Stated General Appearance: No Apparent Distress, WD/WN, Anxious Eyes: Bilateral Eye Normal Inspection, Bilateral Eye PERRL, Bilateral Eye EOMI HEENT: PERRL/EOMI, Normal ENT Inspection, Pharynx Normal (Dry oropharynx); No Moist Mucous Membranes Neck: Full Range of Motion, Normal Inspection Respiratory: Lungs Clear, Normal Breath Sounds, No Accessory Muscle Use, No Respiratory Distress Cardiovascular: Regular Rate, Rhythm, No Edema Gastrointestinal: Normal Bowel Sounds, Non Tender, Soft Extremity: Normal Capillary Refill, Normal Inspection, No Pedal Edema Neurologic/Psychiatric: Alert, Oriented x3 Progress/Results/Core Measures Suspected Sepsis SIRS Temperature: Pulse: Respiratory Rate: Laboratory Tests 08/16/20 15:49: White Blood Count 12.5H Blood Pressure / Mean: Laboratory Tests 08/16/20 15:49: Creatinine 1.49H, Platelet Count 380, Total Bilirubin 0.3 Results/Orders Lab Results Laboratory Tests Test 08/16/20 15:48 08/16/20 15:49 08/16/20 16:28 Range/Units Glucometer 194 H 70-110 MG/DL White Blood Count 12.5 H 4.3-11.0 10^3/uL Red Blood Count 4.42 3.80-5.11 10^6/uL Hemoglobin 13.1 11.5-16.0 g/dL Hematocrit 39 35-52 % Mean Corpuscular Volume 89 80-99 fL Mean Corpuscular Hemoglobin 30 25-34 pg Mean Corpuscular Hemoglobin Concent 33 32-36 g/dL Red Cell Distribution Width 13.2 10.0-14.5 % Platelet Count 380 130-400 10^3/uL Mean Platelet Volume 9.6 9.0-12.2 fL Immature Granulocyte % (Auto) 0 % Neutrophils (%) (Auto) 70 42-75 % Lymphocytes (%) (Auto) 18 12-44 % Monocytes (%) (Auto) 8 0-12 % Eosinophils (%) (Auto) 2 0-10 % Basophils (%) (Auto) 1 0-10 % Neutrophils # (Auto) 8.8 H 1.8-7.8 10^3/uL Lymphocytes # (Auto) 2.2 1.0-4.0 10^3/uL Monocytes # (Auto) 1.0 0.0-1.0 10^3/uL Eosinophils # (Auto) 0.3 0.0-0.3 10^3/uL Basophils # (Auto) 0.2 H 0.0-0.1 10^3/uL Immature Granulocyte # (Auto) 0.1 0.0-0.1 10^3/uL Sodium Level 134 L 135-145 MMOL/L Potassium Level 4.2 3.6-5.0 MMOL/L Chloride Level 99 98-107 MMOL/L Carbon Dioxide Level 23 21-32 MMOL/L Anion Gap 12 5-14 MMOL/L Blood Urea Nitrogen 33 H 7-18 MG/DL Creatinine 1.49 H 0.60-1.30 MG/DL Estimat Glomerular Filtration Rate 36 BUN/Creatinine Ratio 22 Glucose Level 194 H 70-105 MG/DL Calcium Level 8.6 8.5-10.1 MG/DL Corrected Calcium 9.1 8.5-10.1 MG/DL Magnesium Level 2.4 1.6-2.4 MG/DL Total Bilirubin 0.3 0.1-1.0 MG/DL Aspartate Amino Transf (AST/SGOT) 19 5-34 U/L Alanine Aminotransferase (ALT/SGPT) 16 0-55 U/L Alkaline Phosphatase 115 40-136 U/L Total Protein 6.6 6.4-8.2 GM/DL Albumin 3.4 3.2-4.5 GM/DL Urine Color YELLOW Urine Clarity CLEAR Urine pH 5.5 5-9 Urine Specific [place] 1.025 H 1.016-1.022 Urine Protein 3+ H NEGATIVE Urine Glucose (UA) 1+ H NEGATIVE Urine Ketones NEGATIVE NEGATIVE Urine Nitrite NEGATIVE NEGATIVE Urine Bilirubin NEGATIVE NEGATIVE Urine Urobilinogen 0.2 < = 1.0 MG/DL Urine Leukocyte Esterase NEGATIVE NEGATIVE Urine RBC (Auto) TRACE-I NEGATIVE Urine RBC 0-2 /HPF Urine WBC 0-2 /HPF Urine Squamous Epithelial Cells 2-5 /HPF Urine Crystals NONE /LPF Urine Bacteria NEGATIVE /HPF Urine Casts PRESENT /LPF Urine Hyaline Casts 0-2 H /LPF Urine Mucus NEGATIVE /LPF Urine Culture Indicated NO My Orders Orders - FRANCINE NAILS Ed Iv/Invasive Line Start (08/16/20 15:41) Ns Iv 1000 Ml (Sodium Chloride 0.9%) (08/16/20 15:45) Ondansetron Injection (Zofran Injectio (08/16/20 15:45) Cbc With Automated Diff (08/16/20 15:41) Comprehensive Metabolic Panel (08/16/20 15:41) Ua Culture If Indicated (08/16/20 15:41) Accucheck Stat ONCE (08/16/20 15:52) Magnesium (08/16/20 15:52) Medications Given in ED Current Medications Medications Dose Ordered Sig/Janet Route Start Time Stop Time Status Last Admin Dose Admin Ondansetron HCl 4 mg ONCE ONCE IVP 08/16/20 15:45 08/16/20 15:52 DC 08/16/20 16:02 4 MG Sodium Chloride 1,000 ml @ ud STK-MED ONCE .ROUTE 08/16/20 15:38 08/16/20 15:42 DC 08/16/20 15:46 1,000 MLS/HR Vital Signs/I&O 08/16/20 15:28 Temp 36.7 Pulse 89 Resp 17 B/P (MAP) 162/123 (136) Pulse Ox 96 O2 Delivery Room Air Capillary Refill : Progress Note #1: Time: 15:57 Progress Note Zofran for her nausea and a liter of normal saline. We will check some labs since we do not have her previous labs to reference including a magnesium and urinalysis. Her vital signs are normal and she is otherwise not in any acute d istress. She does have mild dehydration on clinical exam. Progress Note #2: Time: 16:31 Progress Note Patient's blood sugar is modestly elevated. She says her symptoms are significantly improved after half of a liter is in. We will let her get the other half. She did produce some urine. She says her nausea is now gone. She is feeling much better. After we get the labs and urine all back we will call her primary care provider and coordinate care. Departure Communication (PCP) Left voicemail with JOSSELIN Mccrary for Dr. Francois Impression Primary Impression: Dehydration Additional Impression: Hyperglycemia Disposition: 01 HOME, SELF-CARE Condition: Stable Departure-Patient Inst. Decision time for Depature: 17:09 Referrals: PILLO FRANCOIS MD (PCP/Family) Primary Care Physician Patient Instructions: Hyperglycemia, Adult (DC), Dehydration, Adult ED Add. Discharge Instructions: Drink plenty of fluids and work diligently with your primary care doctor to control your blood sugars. Return to the ER for worsening symptoms. Call and follow-up with your primary care provider in the next 1 to 2 weeks for recheck of your blood sugar management. All discharge instructions reviewed with patient and/or family. Voiced understanding. FRANCINE NAILS J Aug 16, 2020 15:58
[2020-08-16 16:04] LABS: ALBUMIN 3.4 GM/DL (3.2-4.5); POTASSIUM 4.2 MMOL/L (3.6-5.0)
[2020-08-16 16:06] LABS: CALCIUM 8.6 MG/DL (8.5-10.1)
[2020-08-16 16:07] LABS: TOTAL PROTEIN 6.6 GM/DL (6.4-8.2)
[2020-08-16 16:09] LABS: BILIRUBIN,TOTAL 0.3 MG/DL (0.1-1.0)
[2020-08-16 16:10] LABS: CREATININE SERUM 1.49 MG/DL (0.60-1.30)
[2020-08-16 16:13] LABS: MAGNESIUM 2.4 MG/DL (1.6-2.4)
[2020-08-16 16:34] LABS: BILIRUBIN,URINE NEGATIVE (NEGATIVE); CLARITY,URINE CLEAR; COLOR,URINE YELLOW; GLUCOSE, URINE (UA) 1+ (NEGATIVE); KETONES,URINE NEGATIVE (NEGATIVE); LEUKOCYTE ESTERASE ,URINE NEGATIVE (NEGATIVE); NITRITE,URINE NEGATIVE (NEGATIVE); PH,URINE 5.5 (5-9); PROTEIN,URINE 3+ (NEGATIVE)
[2020-08-16 16:41] LABS: BACTERIA,URINE NEGATIVE /HPF; HYALINE CASTS, URINE 0-2 /LPF; RBC,URINE 0-2 /HPF; WBC,URINE 0-2 /HPF
[2020-08-16 17:26] VITALS: BP 158/99
== END 2020-08-16 17:26 | disposition home or self-care (01) ==
LOC: EDUNIT# 15:22 → ER 15:24
DX: E86.0 Dehydration (principal); F41.9 Anxiety disorder, unspecified; F32.9 Major depressive disorder, single episode, unspecified; J44.9 Chronic obstructive pulmonary disease, unspecified; E11.65 Type 2 diabetes mellitus with hyperglycemia; E78.00 Pure hypercholesterolemia, unspecified; I10 Essential (primary) hypertension; E03.9 Hypothyroidism, unspecified; G89.29 Other chronic pain; M54.9 Dorsalgia, unspecified; F17.210 Nicotine dependence, cigarettes, uncomplicated; Z88.1 Allergy status to other antibiotic agents; Z82.49 Family history of ischemic heart disease and other diseases of the circulatory system; Z80.0 Family history of malignant neoplasm of digestive organs; Z82.61 Family history of arthritis; Z83.3 Family history of diabetes mellitus; Z95.1 Presence of aortocoronary bypass graft; Z79.890 Hormone replacement therapy; Z79.4 Long term (current) use of insulin; Z79.82 Long term (current) use of aspirin; Z79.891 Long term (current) use of opiate analgesic
CPT/HCPCS: 36415; 80053; 81000; 82962; 83735; 85025

== ENCOUNTER 2020-09-03 10:14 | Observation (INO) | payer OTHER ==
[~2020-09-03] VITALS: Ht 165.1 cm; Wt 53.6 kg
--- NOTE | 2020-09-03 10:41 | ED General ---
General Stated Complaint: N/V RAPID HR History of Present Illness Date Seen by Provider: Sep 03, 2020 Time Seen by Provider: 10:40 Initial Comments 59-year-old female presents with some nausea, diarrhea, occasional palpitations. She reports the palpitations are worse when she stands up. Patient reports that symptoms have been on and off for at least the last 2 months. Patient reports 2 months ago she received a second dose of the Covid vaccine and has not felt well since. She does not complain of any fever, cough, shortness of breath. Patient also complains that her blood sugars have been sporadic. Patient called her primary care provider who sent her to the ER for further evaluation. Allergies and Home Medications Allergies Coded Allergies: ciprofloxacin (Verified Allergy, Mild, redness and itching , 12/04/18) redness and itching at iv site Home Medications Aspirin 81 Mg Tab.chew, 81 MG PO DAILY, (Reported) Buspirone HCl 5 Mg Tablet, 5 MG PO BID, (Reported) LAST FILLED 07-08-2020 #60/30 DAY SUPPLY Clopidogrel Bisulfate 75 Mg Tablet, 75 MG PO DAILY, (Reported) Gabapentin 100 Mg Capsule, 100 MG PO HS, (Reported) LAST FILLED #30 06-06-2020 Ibuprofen 200 Mg Tablet, 400-600 MG PO Q6H PRN for PAIN-MILD (1-4), (Reported) Insulin Aspart 100 Unit/1 Ml Susp, 12 UNITS SQ TIDWM, (Reported) Insulin Determir 1,000 Units/10 Ml Soln, 15 UNITS SQ BID, (Reported) Levothyroxine Sodium 175 Mcg Tablet, 175 MCG PO DAILY, (Reported) Montelukast Sodium 10 Mg Tablet, 10 MG PO HS, (Reported) Paroxetine HCl 40 Mg Tablet, 40 MG PO DAILY, (Reported) Patient Home Medication List Home Medication List Reviewed: Yes Review of Systems Review of Systems Constitutional: No chills, No fever; malaise Respiratory: No cough, No short of breath Cardiovascular: No chest pain; palpitations; No syncope Gastrointestinal: No abdominal pain; diarrhea, nausea Genitourinary: no symptoms reported Musculoskeletal: no symptoms reported Skin: no symptoms reported Psychiatric/Neurological: See HPI Hematologic/Lymphatic: No Symptoms Reported Immunological/Allergic: no symptoms reported Past Vgbdpuy-Xmqkgo-Rrszob Hx Past Med/Social Hx: Reviewed Nursing Past Med/Soc Hx Patient Social History Type Used: Cigarettes 2nd Hand Smoke Exposure: No Recent Hopitalizations: No Immunizations Up To Date Tetanus Booster (TDap): Unknown PED Vaccines UTD: No Date of Pneumonia Vaccine: Apr 02, 2013 Date of Influenza Vaccine: Apr 07, 2016 Seasonal Allergies Seasonal Allergies: No Past Medical History Surgeries: Yes (SEE BELOW) Abdominal, Cardiac, CABG, 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, Oophorectomy, Orthopedic, Thyroidectomy, Vascular Surgery Respiratory: Yes COPD Cardiac: Yes (RIGHT ILIAC STENT; 4 VESSEL CABG AND RIGHT CAROTID ENDARTERECTOMY 12/2015) Coronary Artery Disease, High Cholesterol, Hypertension, Peripheral Vascular Neurological: Yes Headaches /Migraines, Neuropathy Reproductive Disorders: No Female Reproductive Disorders: Denies 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, Menopausal Sexually Transmitted Disease: No HIV/AIDS: No Genitourinary: No Gastrointestinal: Yes Gastroesophageal Reflux, Chronic Constipation, Chronic Diarrhea, Hiatal Hernia Musculoskeletal: Yes (CHRONIC NECK PAIN--S/P CERVICAL FUSION) Degenerate Disk Disease, Chronic Back Pain Endocrine: Yes Diabetes, Insulin dep, Hypothyroidsim HEENT: No Loss of Vision: Denies Hearing Impairment: Denies Cancer: No Psychosocial: Yes Anxiety, Depression Integumentary: Yes (PREVIOUS ABCESSES) Blood Disorders: No Adverse Reaction/Blood Tranf: No (has never had a transfusion) Family Medical History Cancer G8 BROTHER, Onset:Unknown G8 BROTHER, Onset:Unknown Cancer of colon G8 BROTHER, Onset:Unknown Chest pain 19 MOTHER, Onset:Unknown Congestive heart failure 19 FATHER, Onset:60 years & older Family history: Alzheimer's disease 19 MOTHER, Onset:50's - 60 Family history: Arthritis 19 MOTHER, Onset:Unknown Family history: Asthma 19 FATHER, Onset:Unknown Family history: Cardiovascular disease 19 MOTHER, Onset:50's - 60 Family history: Coronary thrombosis 19 MOTHER, Onset:Unknown Family history: Diabetes mellitus 19 MOTHER, Onset:Unknown Family history: Hypertension 19 MOTHER, Onset:50's - 60 Family history: Thyroid disorder 19 MOTHER, Onset:50's - 60 Heart disease 19 MOTHER, Onset:50's - 60 Human immunodeficiency virus (HIV) seropositivity G8 BROTHER, Onset:40's - 50 Myocardial infarction 19 MOTHER, Onset:50's - 60 No Family History of: Abdominal aortic aneurysm Fidencio's disease Alcoholism Aphasia Cataract Congenital heart disease Cystic fibrosis Dementia Dysphagia Family history: Allergy Family history: Breast disease Family history: Gastrointestinal disease Family history: Glaucoma Family history: Osteoporosis Headache Hearing loss Hereditary disease History of - anemia History of - disorder History of - respiratory disease History of drug abuse Hypercholesterolemia Infertile Kidney disease Malignant neoplasm of lung Parkinson's disease Prostate cancer Psychotic disorder Seizure disorder Stroke Tuberculosis Visual impairment PSH: -RIGHT ILIAC ARTERY STENT -4 VESSEL CABG 12/2015 -RIGHT CAROTID ENDARTERECTOMY 12/2015 -TONSILLECTOMY -HYSTERECTOMY/BSO -LAPAROSCOPIC RENETTA FUNDOPLICATION -CERVICAL SPINE FUSION Physical Exam Vital Signs Vital Signs - First Documented 09/03/20 11:00 Temp 37.2 Pulse 84 Resp 20 B/P (MAP) 107/53 (71) Pulse Ox 97 Capillary Refill : Height, Weight, BMI Height: 5'5.00" Weight: 125lbs. 0.0oz. 56.972823fq; 19.00 BMI Method:Stated General Appearance: No Apparent Distress, Chronically ill HEENT: PERRL/EOMI, Moist Mucous Membranes Neck: Non Tender, Supple Respiratory: Lungs Clear, Normal Breath Sounds Cardiovascular: Regular Rate, Rhythm, No Edema Gastrointestinal: Non Tender, Soft Extremity: Normal Capillary Refill, Normal Inspection, Normal Range of Motion Neurologic/Psychiatric: Alert, Oriented x3, No Motor/Sensory Deficits, superintendent building II- XII Norm as Tested Focused Exam Lactate Level 09/03/20 10:54: Lactic Acid Level 3.14*H 09/03/20 12:16: Lactic Acid Level 2.23*H Lactic Acid Level Laboratory Tests Test 09/03/20 10:54 09/03/20 12:16 Lactic Acid Level 3.14 MMOL/L (0.50-2.00) *H 2.23 MMOL/L (0.50-2.00) *H Progress/Results/Core Measures Suspected Sepsis SIRS Temperature: Pulse: Respiratory Rate: Laboratory Tests 09/03/20 10:54: White Blood Count 13.7H Blood Pressure / Mean: 09/03/20 10:54: Lactic Acid Level 3.14*H 09/03/20 12:16: Lactic Acid Level 2.23*H Laboratory Tests 09/03/20 10:54: Creatinine 1.33H, Platelet Count 366, Total Bilirubin 0.3 Results/Orders Lab Results Laboratory Tests Test 09/03/20 10:54 09/03/20 10:57 09/03/20 11:21 09/03/20 12:16 Range/Units White Blood Count 13.7 H 4.3-11.0 10^3/uL Red Blood Count 4.83 3.80-5.11 10^6/uL Hemoglobin 14.4 11.5-16.0 g/dL Hematocrit 44 35-52 % Mean Corpuscular Volume 91 80-99 fL Mean Corpuscular Hemoglobin 30 25-34 pg Mean Corpuscular Hemoglobin Concent 33 32-36 g/dL Red Cell Distribution Width 13.9 10.0-14.5 % Platelet Count 366 130-400 10^3/uL Mean Platelet Volume 9.7 9.0-12.2 fL Immature Granulocyte % (Auto) 0 % Neutrophils (%) (Auto) 79 H 42-75 % Lymphocytes (%) (Auto) 12 12-44 % Monocytes (%) (Auto) 6 0-12 % Eosinophils (%) (Auto) 2 0-10 % Basophils (%) (Auto) 1 0-10 % Neutrophils # (Auto) 10.8 H 1.8-7.8 10^3/uL Lymphocytes # (Auto) 1.7 1.0-4.0 10^3/uL Monocytes # (Auto) 0.8 0.0-1.0 10^3/uL Eosinophils # (Auto) 0.3 0.0-0.3 10^3/uL Basophils # (Auto) 0.1 0.0-0.1 10^3/uL Immature Granulocyte # (Auto) 0.1 0.0-0.1 10^3/uL Sodium Level 128 L 135-145 MMOL/L Potassium Level 5.7 H 3.6-5.0 MMOL/L Chloride Level 97 L 98-107 MMOL/L Carbon Dioxide Level 21 21-32 MMOL/L Anion Gap 10 5-14 MMOL/L Blood Urea Nitrogen 26 H 7-18 MG/DL Creatinine 1.33 H 0.60-1.30 MG/DL Estimat Glomerular Filtration Rate 41 BUN/Creatinine Ratio 20 Glucose Level 263 H 70-105 MG/DL Lactic Acid Level 3.14 *H 2.23 *H 0.50-2.00 MMOL/L Calcium Level 8.2 L 8.5-10.1 MG/DL Corrected Calcium 8.7 8.5-10.1 MG/DL Magnesium Level 2.3 1.6-2.4 MG/DL Total Bilirubin 0.3 0.1-1.0 MG/DL Aspartate Amino Transf (AST/SGOT) 110 H 5-34 U/L Alanine Aminotransferase (ALT/SGPT) 49 0-55 U/L Alkaline Phosphatase 144 H 40-136 U/L Troponin I < 0.028 <0.028 NG/ML B-Type Natriuretic Peptide 206.3 H <100.0 PG/ML Total Protein 8.2 6.4-8.2 GM/DL Albumin 3.4 3.2-4.5 GM/DL Glucometer 270 H 70-110 MG/DL Urine Color YELLOW Urine Clarity CLEAR Urine pH 6.0 5-9 Urine Specific [place] >=1.030 1.016-1.022 Urine Protein 3+ H NEGATIVE Urine Glucose (UA) 2+ H NEGATIVE Urine Ketones TRACE H NEGATIVE Urine Nitrite NEGATIVE NEGATIVE Urine Bilirubin NEGATIVE NEGATIVE Urine Urobilinogen 0.2 < = 1.0 MG/DL Urine Leukocyte Esterase NEGATIVE NEGATIVE Urine RBC (Auto) TRACE-I NEGATIVE Urine RBC RARE /HPF Urine WBC 5-10 H /HPF Urine Squamous Epithelial Cells 10-25 H /HPF Urine Crystals NONE /LPF Urine Bacteria FEW H /HPF Urine Casts PRESENT /LPF Urine Hyaline Casts 25-50 H /LPF Urine Mucus NEGATIVE /LPF Urine Culture Indicated YES My Orders Orders - JORGE L COLÓNR L DO Accucheck Stat ONCE (09/03/20 10:47) Ed Iv/Invasive Line Start (09/03/20 10:47) Ekg Tracing (09/03/20 10:47) Monitor-Rhythm Ecg Trace Only (09/03/20 10:47) Orthostatic Vital Signs (6-12y (09/03/20 10:47) BNP (09/03/20 10:47) Cbc With Automated Diff (09/03/20 10:47) Comprehensive Metabolic Panel (09/03/20 10:47) Lactic Acid Analyzer (09/03/20 10:47) Magnesium (09/03/20 10:47) Troponin I (09/03/20 10:47) Ua Culture If Indicated (09/03/20 10:47) Lactated Ringers (Lr 1000 Ml Iv Solution (09/03/20 10:47) Famotidine Injection (Pepcid Injection) (09/03/20 10:47) Acute Abd Series (09/03/20 11:35) Urine Culture (09/03/20 11:21) Potassium (09/03/20 11:38) Vital Signs/I&O 09/03/20 09/03/20 11:00 11:05 Temp 37.2 Pulse 84 83 92 81 Resp 20 B/P (MAP) 107/53 (71) 108/61 102/62 107/53 Pulse Ox 97 Capillary Refill : Progress Note : Progress Note Patient symptoms consistent with some dehydration, patient with some chronic diarrhea. Patient's lactate did improve with some IV fluids. We will admit her for observation for IV fluids and further evaluation. Called and discussed with Dr. Alvarado who accepted patient. Patient was transferred to the floor in stable condition ECG Initial ECG Impression Date: Sep 03, 2020 Initial ECG Impression Time: 10:48 Initial ECG Rate: 85 Initial ECG Rhythm: Normal Sinus Initial ECG Impression: Nonspecific Changes Comment Heart rate 85, sinus rhythm, nonspecific changes, no acute findings Diagnostic Imaging Diagonstic Imaging: Xray Plain Films/CT/US/NM/MRI: chest, abdomen Comments [facility] [place], [place] NAME: TIFFANY GRAMAJO [facility] REC#: [id number] PT STATUS: REG ER : 1960 PHYSICIAN: HILARIA COLÓN DO ADMIT DATE: 09/03/20/ER Signed Date of Exam:09/03/20 ACUTE ABD SERIES INDICATION: Nausea, vomiting, headache, heart palpitations and hyperglycemia. Comparison made with prior examination of 08/05/2020. 4 views were obtained FINDINGS: Heart size is normal. There has been previous median sternotomy and coronary bypass graft. Lungs are clear. No pleural effusion or pneumothorax. Bowel gas pattern is nonspecific. There is no free air. There are no abnormal abdominal calcifications. IMPRESSION: No acute cardiopulmonary abnormality. Nonspecific bowel gas pattern Reviewed: Reviewed by Me, Reviewed/Discussed Departure Communication (Admissions) Time/Spoke to Admitting Phy: 13:15 Okay to admit patient for observation, IV fluid Impression Primary Impression: Diabetes mellitus, insulin dependent (IDDM), uncontrolled Additional Impressions: Dehydration Hyperkalemia Disposition: ADMITTED INPATIENT Condition: Stable Admissions Decision to Admit Reason: Admit from ER (General) Decision to Admit/Date: Sep 03, 2020 Time/Decision to Admit Time: 13:15 Departure-Patient Inst. Referrals: PILLO FRANCOIS MD (PCP/Family) Primary Care Physician HILARIA COLÓN DO Sep 03, 2020 10:40
[2020-09-03] MEDS ORDERED: LACTATED RINGERS 1,000 ML IV STA ×2 (10:47→13:12)
[2020-09-03] MEDS ORDERED: FAMOTIDINE 20MG/2ML IV (PEPCID) IV STA (10:47)
[2020-09-03 11:04] LABS: BASOPHILS # (AUTO) 0.1 10^3/uL (0.0-0.1); BASOPHILS % (AUTO) 1 % (0-10); EOSINOPHILS # (AUTO) 0.3 10^3/uL (0.0-0.3); EOSINOPHILS % (AUTO) 2 % (0-10); HEMATOCRIT 44 % (35-52); HEMOGLOBIN 14.4 g/dL (11.5-16.0); LYMPHOCYTES # (AUTO) 1.7 10^3/uL (1.0-4.0); LYMPHOCYTES % (AUTO) 12 % (12-44); MEAN CORPUSCULAR HEMOGLOBIN 30 pg (25-34); MEAN CORPUSCULAR HGB CONC 33 g/dL (32-36); MEAN CORPUSCULAR VOLUME 91 fL (80-99); MEAN PLATELET VOLUME 9.7 fL (9.0-12.2); MONOCYTES # (AUTO) 0.8 10^3/uL (0.0-1.0); MONOCYTES % (AUTO) 6 % (0-12); NEUTROPHILS # (AUTO) 10.8 10^3/uL (1.8-7.8); NEUTROPHILS % (AUTO) 79 % (42-75); PLATELET COUNT 366 10^3/uL (130-400); WHITE BLOOD COUNT 13.7 10^3/uL (4.3-11.0)
[2020-09-03 11:13] LABS: ALBUMIN 3.4 GM/DL (3.2-4.5); CHLORIDE 97 MMOL/L (98-107); SODIUM 128 MMOL/L (135-145)
[2020-09-03 11:15] LABS: CALCIUM 8.2 MG/DL (8.5-10.1)
[2020-09-03 11:16] LABS: GLUCOSE 263 MG/DL (70-105); TOTAL PROTEIN 8.2 GM/DL (6.4-8.2)
[2020-09-03 11:17] LABS: CARBON DIOXIDE 21 MMOL/L (21-32)
[2020-09-03 11:18] LABS: BILIRUBIN,TOTAL 0.3 MG/DL (0.1-1.0)
[2020-09-03 11:19] LABS: ALKALINE PHOSPHATASE 144 U/L (40-136); CREATININE SERUM 1.33 MG/DL (0.60-1.30); GFR ESTIMATED 41
[2020-09-03 11:20] LABS: BUN/CREATININE RATIO 20
[2020-09-03 11:22] LABS: ALANINE AMINOTRANSFERASE 49 U/L (0-55); MAGNESIUM 2.3 MG/DL (1.6-2.4)
[2020-09-03 11:27] LABS: BILIRUBIN,URINE NEGATIVE (NEGATIVE); CLARITY,URINE CLEAR; COLOR,URINE YELLOW; GLUCOSE, URINE (UA) 2+ (NEGATIVE); KETONES,URINE TRACE (NEGATIVE); LEUKOCYTE ESTERASE ,URINE NEGATIVE (NEGATIVE); NITRITE,URINE NEGATIVE (NEGATIVE); PROTEIN,URINE 3+ (NEGATIVE)
[2020-09-03 11:35] LABS: BACTERIA,URINE FEW /HPF; HYALINE CASTS, URINE 25-50 /LPF; RBC,URINE RARE /HPF
--- NOTE | 2020-09-03 12:27 | Diagnostic Imaging Report ---
INDICATION: Nausea, vomiting, headache, heart palpitations and hyperglycemia. Comparison made with prior examination of 08/05/2020. 4 views were obtained FINDINGS: Heart size is normal. There has been previous median sternotomy and coronary bypass graft. Lungs are clear. No pleural effusion or pneumothorax. Bowel gas pattern is nonspecific. There is no free air. There are no abnormal abdominal calcifications. IMPRESSION: No acute cardiopulmonary abnormality. Nonspecific bowel gas pattern. Dictated by: Dictated on workstation # [id number]
--- NOTE | 2020-09-03 14:19 | History & Physical-Hospitalist ---
ANGELAFAVIAN, 09/03/20 1419: History of Present Illness HPI/Chief Complaint Ms. Yates is a 59-year-old female who presented to the [facility] ED for concerns of dehydration. She states that she received her second dose of the coronavirus vaccine on Jul 30. From around that time, she has been having nausea, vomiting, and diarrhea. She is a type 1 diabetic and states her blood sugars have been uncontrolled for a few months. She also states she has been having headaches and racing heartbeat. She notices the tachycardia when she stands up and begins feeling dizzy and breathless. The patient states she has been to the ED three times in the last month for fluids. She has tried Imodium for her diarrhea. Denies any blood in her stool. Source: patient Date Seen 09/03/20 Time Seen by a Provider: 13:10 Attending Physician Dawson Alvarado MD PCP Phillip Sanchez MD Referring Physician Date of Admission Sep 03, 2020 at 12:20 Home Medications & Allergies Home Medications Reviewed patient Home Medication Reconciliation performed by pharmacy medication reconciliations master certified rv technician and/or nursing. Patients Allergies have been reviewed. Allergies Allergies Coded Allergies ciprofloxacin (Verified Allergy, Mild, redness and itching , 12/04/18) redness and itching at iv site Past Pwzzzag-Yykicc-Omxyhp Hx Past Med/Social Hx: Reviewed Nursing Past Med/Soc Hx Patient Social History Employed/Student: employed Alcohol Use: Denies Use Recreational Drug Use: No Smoking Status: Current Everyday Smoker (40 pack-year history) Type Used: Cigarettes 2nd Hand Smoke Exposure: No Recent Foreign Travel: No Contact w/other who traveled: No Recent Hopitalizations: No Recent Infectious Disease Expo: No Immunizations Up To Date Tetanus Booster (TDap): Unknown Pediatric: No Date of Pneumonia Vaccine: Apr 02, 2013 Date of Influenza Vaccine: Apr 07, 2016 Seasonal Allergies Seasonal Allergies: No Past Medical History Surgeries: Abdominal, Cardiac, CABG, 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, Oophorectomy, Orthopedic, Thyroidectomy, Vascular Surgery Respiratory: COPD Cardiac: Coronary Artery Disease, High Cholesterol, Hypertension, Peripheral Vascular Neurological: Headaches /Migraines, Neuropathy Reproductive: No Sexually Transmitted Disease: No HIV/AIDS: No Female Reproductive Disorders: Denies 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, Menopausal Gastrointestinal: Gastroesophageal Reflux, Chronic Constipation, Chronic Diarrhea, Hiatal Hernia Musculoskeletal: Degenerate Disk Disease, Chronic Back Pain Endocrine: Diabetes, Insulin dep, Hypothyroidsim Psychosocial: Anxiety, Depression Adverse Reaction to Blood [place]: No Family History Cancer G8 BROTHER, Onset:Unknown G8 BROTHER, Onset:Unknown Cancer of colon G8 BROTHER, Onset:Unknown Chest pain 19 MOTHER, Onset:Unknown Congestive heart failure 19 FATHER, Onset:60 years & older Family history: Alzheimer's disease 19 MOTHER, Onset:50's - 60 Family history: Arthritis 19 MOTHER, Onset:Unknown Family history: Asthma 19 FATHER, Onset:Unknown Family history: Cardiovascular disease 19 MOTHER, Onset:50's - 60 Family history: Coronary thrombosis 19 MOTHER, Onset:Unknown Family history: Diabetes mellitus 19 MOTHER, Onset:Unknown Family history: Hypertension 19 MOTHER, Onset:50's - 60 Family history: Thyroid disorder 19 MOTHER, Onset:50's - 60 Heart disease 19 MOTHER, Onset:50's - 60 Human immunodeficiency virus (HIV) seropositivity G8 BROTHER, Onset:40's - 50 Myocardial infarction 19 MOTHER, Onset:50's - 60 No Family History of: Abdominal aortic aneurysm [place]'s disease Alcoholism Aphasia Cataract Congenital heart disease Cystic fibrosis Dementia Dysphagia Family history: Allergy Family history: Breast disease Family history: Gastrointestinal disease Family history: Glaucoma Family history: Osteoporosis Headache Hearing loss Hereditary disease History of - anemia History of - disorder History of - respiratory disease History of drug abuse Hypercholesterolemia Infertile Kidney disease Malignant neoplasm of lung Parkinson's disease Prostate cancer Psychotic disorder Seizure disorder Stroke Tuberculosis Visual impairment PSH: -RIGHT ILIAC ARTERY STENT -4 VESSEL CABG 12/2015 -RIGHT CAROTID ENDARTERECTOMY 12/2015 -TONSILLECTOMY -HYSTERECTOMY/BSO -LAPAROSCOPIC RENETTA FUNDOPLICATION -CERVICAL SPINE FUSION Review of Systems Constitutional: No malaise, No weakness EENTM: No blurred vision, No throat pain Respiratory: No cough, No short of breath Cardiovascular: No chest pain; palpitations Gastrointestinal: diarrhea, nausea, vomiting Genitourinary: No dysuria, No hematuria Musculoskeletal: No joint pain, No muscle pain Skin: No dryness, No lesions Psychiatric/Neurological: Headache, Numbness (chronic hand numbness) Physical Exam Physical Exam Vital Signs Vital Signs - First Documented 09/03/20 11:00 Temp 37.2 Pulse 84 Resp 20 B/P (MAP) 107/53 (71) Pulse Ox 97 Capillary Refill : Less Than 3 Seconds Height, Weight, BMI Height: 5'5.00" Weight: 125lbs. 0.0oz. [id number]; 19.00 BMI Method:Stated General Appearance: No Apparent Distress, WD/WN HEENT: PERRL/EOMI; No Pale Conjunctivae (L), No Pale Conjunctivae (R) Neck: Non Tender, Supple Respiratory: Lungs Clear, Normal Breath Sounds Cardiovascular: Regular Rate, Rhythm, No Murmur Gastrointestinal: Normal Bowel Sounds, Non Tender, Soft Extremity: Normal Capillary Refill, No Calf Tenderness, No Pedal Edema Neurologic/Psychiatric: Alert, Oriented x3 Skin: Normal Color, Warm/Dry Lymphatic: No Adenopathy Results Results/Procedures Labs Laboratory Tests 09/03/20 10:54 09/03/20 12:16 Patient resulted labs reviewed. Imaging: Reviewed Imaging Report Assessment/Plan Admission Diagnosis Nausea and vomiting * DDx: colitis vs pancreatitis vs gastroparesis vs dehydration * Orthostatics normal in ED * Will order CT scan * Acute abdomen series revealed no acute cardiopulmonary abnormality and nonspecific bowel gas pattern * LR running * Will order lipase * Start reglan 5mg TID Lactic acidosis * In ED, lactic acid 3.14, trending downward to 2.23 at last check * LR running * Repeat in 2 hours from last draw Hyperkalemia * K+ 5.7 in ED * LR running * No EKGs changes seen Acute kidney injury * Likely prerenal due to nausea, vomiting, diarrhea * BUN 26, Cr 1.33, eGFR 41 on today's labs * Unknown creatinine baseline, patient denies kidney disease * Avoid nephrotoxic agents * Renally dose all medications Leukocytosis * WBC elevation to 13.7 with left shift * Could be related to colitis if present or reactive to nausea/vomiting Asymptomatic bacteruria * Pt denies dysuria or hematuria * U/A revealed 3+ protein, 2+ glucose, trace ketones, 5-10 WBC, 10-25 squamous cells, few bacteria, 25-50 hyaline casts * Culture pending * Will not treat at this time as pt denies symptoms and abundant squamous cells * If symptoms start, will repeat U/A prior to starting antibiotics DM1 with neuropathy * Pt takes 15iu levemir BID and 12iu novolog TID with modifications as needed * Continue home insulin regimen * Order A1c * Hypoglycemia protocol Hyponatremia * Na 128 in ED * LR running * Repeat BMP in am Transaminitis * Nonspecific LFT elevation (AST 110, ALP 144, ALT wnl) * Monitor on repeat CMP in am Hypertension Hypothyroidism Hyperlipidemia * Start home medications Diet: CHO 60, Na 2g PPX: FULL CODE Dispo: likely >2 midnights for further investigation of nausea/vomiting/ dehydration DAWSON ALVARADO MD 09/03/20 1455: Past Odcgzxd-Anzhfe-Vldxqf Hx Family History Cancer G8 BROTHER, Onset:Unknown G8 BROTHER, Onset:Unknown Cancer of colon G8 BROTHER, Onset:Unknown Chest pain 19 MOTHER, Onset:Unknown Congestive heart failure 19 FATHER, Onset:60 years & older Family history: Alzheimer's disease 19 MOTHER, Onset:50's - 60 Family history: Arthritis 19 MOTHER, Onset:Unknown Family history: Asthma 19 FATHER, Onset:Unknown Family history: Cardiovascular disease 19 MOTHER, Onset:50's - 60 Family history: Coronary thrombosis 19 MOTHER, Onset:Unknown Family history: Diabetes mellitus 19 MOTHER, Onset:Unknown Family history: Hypertension 19 MOTHER, Onset:50's - 60 Family history: Thyroid disorder 19 MOTHER, Onset:50's - 60 Heart disease 19 MOTHER, Onset:50's - 60 Human immunodeficiency virus (HIV) seropositivity G8 BROTHER, Onset:40's - 50 Myocardial infarction 19 MOTHER, Onset:50's - 60 No Family History of: Abdominal aortic aneurysm Fidencio's disease Alcoholism Aphasia Cataract Congenital heart disease Cystic fibrosis Dementia Dysphagia Family history: Allergy Family history: Breast disease Family history: Gastrointestinal disease Family history: Glaucoma Family history: Osteoporosis Headache Hearing loss Hereditary disease History of - anemia History of - disorder History of - respiratory disease History of drug abuse Hypercholesterolemia Infertile Kidney disease Malignant neoplasm of lung Parkinson's disease Prostate cancer Psychotic disorder Seizure disorder Stroke Tuberculosis Visual impairment Assessment/Plan Admission Diagnosis Admission Status: Observation Assessment and Plan Patient with a month long history of diarrhea and poor blood sugar control following COVID vaccination. Will admit for IV fluids. Will order CT abdomen to evaluate for colitis or diverticulitis. Defer abx for now until those results. Will check c diff. Resume home insulin regimen and monitor response. Lactic acidosis likely due to dehydration and not sepsis and no source for infection. Diagnosis/Problems Diagnosis/Problems (1) Diabetes mellitus, insulin dependent (IDDM), uncontrolled Status: Acute (2) Hyperkalemia Status: Acute (3) Dehydration Status: Resolved Resolution Date/Time: 12/05/18 @ 20:41 (4) COPD (chronic obstructive pulmonary disease) Status: Chronic Qualifiers: COPD type: unspecified COPD Qualified Codes: J44.9 - Chronic obstructive pulmonary disease, unspecified (5) ROSA (acute kidney injury) Status: Acute Supervisory-Addendum Brief Verification & Attestation Participated in pt care: history, MDM, physical Personally performed: exam, history, MDM, supervision of care Care discussed with: Medical Student Procedures: n/a Results interpretation: Verified all documentation Verification and Attestation of Medical Student E/M Service A medical student performed and documented this service in my presence. I reviewed and verified all information documented by the medical student and made modifications to such information, when appropriate. I personally performed the physical exam and medical decision making. Dawson Alvarado, Sep 03, 2020,14:55 FAVIAN MILLER, Sep 03, 2020 14:19 DAWSON ALVARADO MD Sep 03, 2020 14:55
[2020-09-03] MEDS ORDERED: IOHEXOL 350 MG/ML 100 ML (OMNIPAQUE 350) VIAL IV ONE (14:45)
[2020-09-03] MEDS ORDERED: HOLD METFORMIN - RECEIVED CONTRAST 20 ML VIAL IV SCH (14:45)
[2020-09-03] MEDS ORDERED: NS 100 ML (IVPB) BAG IV ONE (14:45)
[2020-09-03] MEDS ORDERED: CATHETER FLUSH 10 ML SYR IV PRN (15:00)
[2020-09-03] MEDS ORDERED: ONDANSETRON 4 MG/2 ML (SDV) Z0FRAN IVP PRN (15:00)
[2020-09-03] MEDS ORDERED: NITROGLYCERIN 2% OINT 1 GM UNIT DOSE PACKET TOP PRN (15:00)
[2020-09-03] MEDS: NS IV 1000 ML 1,000 ML IV SCH ×2 (15:07→23:33)
--- NOTE | 2020-09-03 15:18 | Diagnostic Imaging Report ---
PROCEDURE: CT abdomen and pelvis with and without contrast. TECHNIQUE: Precontrast acquisitions were acquired through the abdomen and pelvis. Multiple contiguous axial images were obtained through the abdomen and pelvis after the administration of intravenous contrast. Auto Exposure Controls were utilized during the CT exam to meet ALARA standards for radiation dose reduction. INDICATION: Abdominal pain. COMPARISON: Correlation is made with prior CT from 12/04/2018. FINDINGS: The lung bases are clear. The liver and gallbladder are unremarkable. No biliary duct dilatation is seen. The pancreas and spleen are unremarkable. No definite adrenal mass is identified. Kidneys are unremarkable. Aorta and iliac vessels are heavily calcified but nonaneurysmal. Small and large bowel loops are normal caliber. No obstruction is seen. There is no free fluid or fluid collection identified. Bladder is unremarkable. The bony structures are nonacute. IMPRESSION: Unremarkable pre and post contrast CT of the abdomen and pelvis. No acute feature is detected. Dictated by: Dictated on workstation # [id number]
[2020-09-03] MEDS ORDERED: CLOP75TA28 PO (15:59)
[2020-09-03] MEDS ORDERED: LEVO175T58 PO (15:59)
[2020-09-03] MEDS ORDERED: MONT10TA32 PO (15:59)
[2020-09-03] MEDS ORDERED: IBUP-2473 PO (16:01)
[2020-09-03 16:05] VITALS: BP 149/67
[2020-09-03] MEDS ORDERED: BENZONATATE 100 MG (TESSALON) CAPSULE PO PRN (16:15)
[2020-09-03] MEDS ORDERED: ACETAMINOPHEN 325 MG TABLET PO PRN (16:15)
[2020-09-03] MEDS ORDERED: MELATONIN 3 MG TABLET PO PRN (16:15)
[2020-09-03] MEDS ORDERED: LOPERAMIDE 2 MG (IMODIUM) TABLET PO PRN (16:15)
[2020-09-03] MEDS ORDERED: IBUPROFEN TABLET 200 MG TAB PO PRN (16:15)
[2020-09-03] MEDS ORDERED: ONDANSETRON 4 MG/2 ML (SDV) Z0FRAN IV PRN (16:15)
[2020-09-03] MEDS ORDERED: MILK OF MAGNESIA 400 MG/5 ML 30 ML UDC PO PRN (16:15)
[2020-09-03] MEDS ORDERED: ACETAMINOPHEN 500 MG TAB (TYLENOL) PO PRN (16:15)
[2020-09-03] MEDS ORDERED: ANTACID SUSP 30 ML UDC (MYLANTA) PO PRN (16:15)
[2020-09-03] MEDS: inSUlin ASPART (NovoLOG) 1 UNIT/0.01 ML (CHARGE PER UNIT) SQ SCH (17:04)
[2020-09-03 19:13] VITALS: BP 130/60
[2020-09-03] MEDS: busPIRone 5 MG (BUSPAR) TAB PO SCH (20:53)
[2020-09-03] MEDS ORDERED: MONTELUKAST 10 MG (SINGULAIR) TAB PO SCH (21:00)
[2020-09-03] MEDS ORDERED: GABAPENTIN 100 MG (NEURONTIN) CAP PO SCH (21:00)
[2020-09-04 00:06] VITALS: BP 180/81
[2020-09-04 04:00] VITALS: BP 182/74
[2020-09-04 05:03] LABS: BASOPHILS # (AUTO) 0.1 10^3/uL (0.0-0.1); BASOPHILS % (AUTO) 1 % (0-10); EOSINOPHILS # (AUTO) 0.6 10^3/uL (0.0-0.3); EOSINOPHILS % (AUTO) 5 % (0-10); HEMATOCRIT 39 % (35-52); HEMOGLOBIN 12.6 g/dL (11.5-16.0); LYMPHOCYTES # (AUTO) 5.3 10^3/uL (1.0-4.0); LYMPHOCYTES % (AUTO) 38 % (12-44); MEAN CORPUSCULAR HEMOGLOBIN 30 pg (25-34); MEAN CORPUSCULAR HGB CONC 33 g/dL (32-36); MEAN CORPUSCULAR VOLUME 92 fL (80-99); MEAN PLATELET VOLUME 9.7 fL (9.0-12.2); MONOCYTES # (AUTO) 1.2 10^3/uL (0.0-1.0); MONOCYTES % (AUTO) 8 % (0-12); NEUTROPHILS # (AUTO) 6.7 10^3/uL (1.8-7.8); NEUTROPHILS % (AUTO) 48 % (42-75); PLATELET COUNT 355 10^3/uL (130-400)
[2020-09-04 05:20] LABS: ALBUMIN 2.8 GM/DL (3.2-4.5); POTASSIUM 3.7 MMOL/L (3.6-5.0)
[2020-09-04 05:22] LABS: CALCIUM 7.6 MG/DL (8.5-10.1)
[2020-09-04 05:23] LABS: TOTAL PROTEIN 5.4 GM/DL (6.4-8.2)
[2020-09-04 05:25] LABS: BILIRUBIN,TOTAL 0.2 MG/DL (0.1-1.0)
[2020-09-04 05:27] LABS: CREATININE SERUM 0.95 MG/DL (0.60-1.30)
[2020-09-04] MEDS ORDERED: LEVOTHYROXINE 125 MCG (LEVOTHROID) TABLET PO SCH (06:30)
[2020-09-04] MEDS ORDERED: LEVOTHYROXINE 50 MCG (LEVOTHROID) TAB PO SCH (06:30)
[2020-09-04 08:00] VITALS: BP 178/79
[2020-09-04] MEDS: inSUlin ASPART (NovoLOG) 1 UNIT/0.01 ML (CHARGE PER UNIT) SQ SCH ×2 (08:07→11:30)
[2020-09-04] MEDS: NS IV 1000 ML 1,000 ML IV SCH (08:07)
[2020-09-04] MEDS: busPIRone 5 MG (BUSPAR) TAB PO SCH (08:08)
[2020-09-04] MEDS ORDERED: LEVOTHYROXINE SODIUM 175 MCG PO SCH (09:00)
[2020-09-04] MEDS ORDERED: CLOPIDOGREL 75 MG (PLAVIX) TABLET PO SCH (09:00)
[2020-09-04] MEDS ORDERED: PARoxetine 20 MG (PAXIL) TAB PO SCH (09:00)
[2020-09-04] MEDS ORDERED: NON-FORMULARY MEDICATION 1 EA EA (Paroxetine HCl 40 MG) PO SCH (09:00)
[2020-09-04] MEDS ORDERED: ASPIRIN 81 MG CHEW (CHILDREN'S ASA) PO SCH (09:00)
--- NOTE | 2020-09-04 09:02 | Progress Note - Hospitalist ---
Subjective HPI/CC On Admission Date Seen by Provider: Sep 04, 2020 Time Seen by Provider: 08:25 Ms. Yates is a 59-year-old female who presented to the [facility] ED for concerns of dehydration. She states that she received her second dose of the coronavirus vaccine on Jul 30. From around that time, she has been having nausea, vomiting, and diarrhea. She is a type 1 diabetic and states her blood sugars have been uncontrolled for a few months. She also states she has been having headaches and racing heartbeat. She notices the tachycardia when she stands up and begins feeling dizzy and breathless. The patient states she has been to the ED three times in the last month for fluids. She has tried Imodium for her diarrhea. Denies any blood in her stool. Subjective/Events-last exam Ms. Yates was seen and examined in f/u for nausea, vomiting, and dehydration. She states she is feeling much better today and feels "more plump" from the fluids. States her headaches are still there but improving. Denies chest pain or shortness of breath. No dysuria or hematuria. Breakfast tray was brought in this morning and she is feeling good enough to eat. Focused Exam Lactate Level 09/03/20 10:54: Lactic Acid Level 3.14*H 09/03/20 12:16: Lactic Acid Level 2.23*H 09/03/20 15:40: Lactic Acid Level 1.18 Objective Exam Vital Signs Vital Signs Date Time Temp Pulse Resp B/P (MAP) Pulse Ox O2 Delivery O2 Flow Rate FiO2 09/04/20 12:04 36.2 82 18 99/78 (85) 100 Room Air Capillary Refill : Less Than 3 Seconds General Appearance: No Apparent Distress, WD/WN HEENT: PERRL/EOMI Neck: Non Tender, Supple Respiratory: Lungs Clear, Normal Breath Sounds Cardiovascular: Regular Rate, Rhythm, No Murmur Gastrointestinal: Normal Bowel Sounds, Non Tender, Soft Extremity: No Calf Tenderness, Pedal Edema Neurologic/Psychiatric: Alert, Oriented x3 Skin: Normal Color, Warm/Dry Lymphatic: No Adenopathy Results/Procedures Lab Laboratory Tests 09/04/20 04:45 Patient resulted labs reviewed. Imaging: Reviewed Imaging Report Assessment/Plan Assessment and Plan Assess & Plan/Chief Complaint Nausea and vomiting * Likely due to dehydration or gastroparesis * Orthostatics normal in ED * CT demonstrated no acute pathology * C. diff pending for longstanding diarrhea * LR running Lactic acidosis - resolved * Repeat in 2 hours was 1.18 Hyperkalemia - resolved Acute kidney injury - resolved * Likely prerenal due to nausea, vomiting, diarrhea * BUN 18, Cr 0.95 Leukocytosis - improving * WBC elevation to 12.6 today * Likely reactive to nausea and vomiting as CT abdomen unremarkable for acute pathology Asymptomatic bacteruria * Pt denies dysuria or hematuria * U/A revealed 3+ protein, 2+ glucose, trace ketones, 5-10 WBC, 10-25 squamous cells, few bacteria, 25-50 hyaline casts * Culture showed contaminants * Will not treat at this time as pt denies symptoms and abundant squamous cells * If symptoms start, will repeat U/A prior to starting antibiotics DM1 with neuropathy * Pt takes 15iu levemir BID and 12iu novolog TID with modifications as needed * Continue home insulin regimen * A1c 11 * Hypoglycemia protocol Hyponatremia * Na 142 on 09/04, up by 15 in 24 hours * Reduce LR rate * Repeat BMP in am Transaminitis - improving Hypertension Hypothyroidism Hyperlipidemia * Start home medications Diet: CHO 60, Na 2g PPX: start lovenox FULL CODE Dispo: likely >2 midnights for further investigation of nausea/vomiting/dehydration FAVIAN MILLER, Sep 04, 2020 09:01
[2020-09-04] MEDS ORDERED: lisINopril 20 MG (PRINIVIL) TABLET PO ONE (12:00)
[2020-09-04 12:04] VITALS: BP 99/78
[2020-09-04] MEDS ORDERED: LISI20TA26 PO (12:27)
[2020-09-04] MEDS ORDERED: INSU100V5 SQ (12:27)
--- NOTE | 2020-09-04 12:29 | Discharge Inst-Simple/Standard ---
Discharge Inst-Standard Discharge Medications New, Converted or Re-Newed RX: Transmitted to Pharmacy Patient Instructions/Follow Up Plan of Care/Instructions/FU: Please continue to take your medications as written. Please follow up with your primary care doctor to follow up this hospital stay. Activity as Tolerated: Yes Discharge Diet: No Restrictions Return to The Hospital For: Low blood sugars or very high blood sugars, chest pain, shortness of breath, fever, cough, confusion, worsening diarrhea or nausea/vomiting, if you feel you are getting worse. DAWSON DEL ROSARIO MD Sep 04, 2020 12:29
--- NOTE | 2020-09-04 12:32 | Discharge Summary ---
FAVIAN MILLER, 09/04/20 1232: Diagnosis/Chief Complaint Date of Admission Sep 03, 2020 at 12:20 Date of Discharge Primary Care Phillip Sanchez MD Discharge Diagnosis (1) Diabetes mellitus, insulin dependent (IDDM), uncontrolled Status: Acute (2) Hyperkalemia Status: Acute (3) Dehydration Status: Resolved (4) COPD (chronic obstructive pulmonary disease) Status: Chronic (5) ROSA (acute kidney injury) Status: Acute Discharge Summary Discharge Physical Exam Allergies: Coded Allergies: ciprofloxacin (Verified Allergy, Mild, redness and itching , 12/04/18) redness and itching at iv site Vitals & I&Os Vital Signs Date Time Temp Pulse Resp B/P (MAP) Pulse Ox O2 Delivery O2 Flow Rate FiO2 09/04/20 12:04 36.2 82 18 99/78 (85) 100 Room Air General Appearance: No Apparent Distress, Chronically ill HEENT: PERRL/EOMI Respiratory: Lungs Clear, Normal Breath Sounds Cardiovascular: Regular Rate, Rhythm, No Murmur Gastrointestinal: Normal Bowel Sounds, Non Tender, Soft Extremity: Normal Capillary Refill, No Calf Tenderness Skin: Normal Color, Warm/Dry Neurologic/Psychiatric: Alert, Oriented x3 Hospital Course Admission Diagnosis: Nausea and vomiting Lactic acidosis Hyperkalemia Acute kidney injury Leukocytosis Asymptomatic bacteruria DM1 with neuropathy Hyponatremia Transaminitis Hypertension Hypothyroidism Hyperlipidemia Final Diagnosis: Nausea and vomiting Lactic acidosis - resolved Hyperkalemia - resolved Acute kidney injury - resolved Leukocytosis - improving Asymptomatic bacteruria DM1 with neuropathy Hyponatremia - improving Transaminitis - improving Hypertension Hypothyroidism Hyperlipidemia Hospital Course: Ms. Yates is a 59-year-old female who presented to the [facility] ED for concerns of dehydration. She states that she received her second dose of the coronavirus vaccine on Jul 30. From around that time, she has been having nausea, vomiting, and diarrhea. She is a type 1 diabetic and states her blood sugars have been uncontrolled for a few months. She also states she has been having headaches and racing heartbeat. She notices the tachycardia when she stands up and begins feeling dizzy and breathless. The patient states she has been to the ED three times in the last month for fluids. She has tried Imodium for her diarrhea. Denies any blood in her stool. U/A revealed contaminants on culture. Orthostatics in ED were normal. Acute abdomen XR revealed nonspecific bowel gas pattern. CT abdomen showed no acute pathology. Patient was given fluids, which resolved most of her concerns. A1c 11. Outpatient Needs: * [place] paperwork with Dr. Sanchez * Discussed gastric emptying study or EGD as outpatient Labs (last 24 hrs) Laboratory Tests 09/03/20 15:40: Mean Blood Glucose 269H, Hemoglobin A1c 11.0H, Lactic Acid Level 1.18 09/03/20 16:09: Glucometer 291H 09/03/20 20:05: Glucometer 201H 09/04/20 04:45: White Blood Count 14.0H, Red Blood Count 4.19, Hemoglobin 12.6, Hematocrit 39, Mean Corpuscular Volume 92, Mean Corpuscular Hemoglobin 30, Mean Corpuscular Hemoglobin Concent 33, Red Cell Distribution Width 13.7, Platelet Count 355, Mean Platelet Volume 9.7, Immature Granulocyte % (Auto) 1, Neutrophils (%) (Auto) 48, Lymphocytes (%) (Auto) 38, Monocytes (%) (Auto) 8, Eosinophils (%) (Auto) 5, Basophils (%) (Auto) 1, Neutrophils # (Auto) 6.7, Lymphocytes # (Auto) 5.3H, Monocytes # (Auto) 1.2H, Eosinophils # (Auto) 0.6H, Basophils # (Auto) 0.1, Immature Granulocyte # (Auto) 0.1, Sodium Level 142, Potassium Level 3.7, Chloride Level 106, Carbon Dioxide Level 25, Anion Gap 11, Blood Urea Nitrogen 18, Creatinine 0.95, Estimat Glomerular Filtration Rate 60, BUN/Creatinine Ratio 19, Glucose Level 33*L, Calcium Level 7.6L, Corrected Calcium 8.6, Total Bilirubin 0.2, Aspartate Amino Transf (AST/SGOT) 50H, Alanine Aminotransferase (ALT/SGPT) 39, Alkaline Phosphatase 128, Total Protein 5.4L, Albumin 2.8L 09/04/20 05:47: Glucometer 45*L 09/04/20 06:05: Glucometer 67L 09/04/20 06:28: Glucometer 78 09/04/20 10:52: Glucometer 306H Microbiology 09/03/20 Urine Culture - Final, Complete 3 or more isolates Patient resulted labs reviewed. Pending Labs Laboratory Tests 09/04/20 04:45: White Blood Count 14.0, Red Blood Count 4.19, Hemoglobin 12.6, Hematocrit 39, Mean Corpuscular Volume 92, Mean Corpuscular Hemoglobin 30, Mean Corpuscular He moglobin Concent 33, Red Cell Distribution Width 13.7, Platelet Count 355, Mean Platelet Volume 9.7, Immature Granulocyte % (Auto) 1, Neutrophils (%) (Auto) 48, Lymphocytes (%) (Auto) 38, Monocytes (%) (Auto) 8, Eosinophils (%) (Auto) 5, Basophils (%) (Auto) 1, Neutrophils # (Auto) 6.7, Lymphocytes # (Auto) 5.3, Monocytes # (Auto) 1.2, Eosinophils # (Auto) 0.6, Basophils # (Auto) 0.1, Immature Granulocyte # (Auto) 0.1, Sodium Level 142, Potassium Level 3.7, Chloride Level 106, Carbon Dioxide Level 25, Anion Gap 11, Blood Urea Nitrogen 18, Creatinine 0.95, Estimat Glomerular Filtration Rate 60, BUN/Creatinine Ratio 19, Glucose Level 33, Calcium Level 7.6, Corrected Calcium 8.6, Total Bilirubin 0.2, Aspartate Amino Transf (AST/SGOT) 50, Alanine Aminotransferase (ALT/SGPT) 39, Alkaline Phosphatase 128, Total Protein 5.4, Albumin 2.8 09/04/20 05:47: Glucometer 45 09/04/20 06:05: Glucometer 67 09/04/20 06:28: Glucometer 78 09/04/20 10:52: Glucometer 306 Imaging: Reviewed Imaging Report Discharge Home Medications: Active Scripts Active Lisinopril 20 Mg Tablet 20 Mg PO DAILY Levemir (Insulin Determir) 1,000 Units/10 Ml Soln 10 Units SQ BID Reported Ibuprofen 200 Mg Tablet 400-600 Mg PO Q6H PRN Montelukast Sodium 10 Mg Tablet 10 Mg PO HS Clopidogrel (Clopidogrel Bisulfate) 75 Mg Tablet 75 Mg PO DAILY Euthyrox (Levothyroxine Sodium) 175 Mcg Tablet 175 Mcg PO DAILY Aspirin 81 Mg Tab.chew 81 Mg PO DAILY Novolog (Insulin Aspart) 100 Unit/1 Ml Susp 12 Units SQ TIDWM Buspirone HCl 5 Mg Tablet 5 Mg PO BID LAST FILLED 07-08-2020 #60/30 DAY SUPPLY Gabapentin 100 Mg Capsule 100 Mg PO HS LAST FILLED #30 06-06-2020 Paroxetine HCl 40 Mg Tablet 40 Mg PO DAILY Instructions to patient/family Please see electronic discharge instructions given to patient. DAWSON ALVARADO MD 09/04/20 1432: Discharge Summary Discharge Physical Exam Allergies: Coded Allergies: ciprofloxacin (Verified Allergy, Mild, redness and itching , 12/04/18) redness and itching at iv site Discussion & Recommendations Discharge Planning: >30 minutes discharge planning Supervisory-Addendum Brief Verification & Attestation Participated in pt care: history, MDM, physical Personally performed: exam, history, MDM, supervision of care Care discussed with: Medical Student Procedures: n/a Results interpretation: Verified all documentation Verification and Attestation of Medical Student E/M Service A medical student performed and documented this service in my presence. I reviewed and verified all information documented by the medical student and made modifications to such information, when appropriate. I personally performed the physical exam and medical decision making. Dawson Alvarado, Sep 04, 2020,14:32 Problem Qualifiers (1) COPD (chronic obstructive pulmonary disease): COPD type: unspecified COPD Qualified Codes: J44.9 - Chronic obstructive pulmonary disease, unspecified FAVIAN MILLER, Sep 04, 2020 12:32 DAWSON ALVARADO MD Sep 04, 2020 14:32
[2020-09-05] MEDS ORDERED: lisINopril 20 MG (PRINIVIL) TABLET PO SCH (09:00)
== END 2020-09-04 12:30 | disposition home or self-care (01) ==
LOC: EDUNIT# 10:14 → ER 10:16 → UNDOADMOB 12:20 → 4TH 12:20 → UNDODISOB 09-04 13:15
PROVIDERS: ADMIT Family Medicine; ATTEND Family Medicine
DX: E10.40 Type 1 diabetes mellitus with diabetic neuropathy, unspecified (principal); E87.5 Hyperkalemia; E86.0 Dehydration; J44.9 Chronic obstructive pulmonary disease, unspecified; N17.9 Acute kidney failure, unspecified; D72.829 Elevated white blood cell count, unspecified; E87.1 Hypo-osmolality and hyponatremia; I10 Essential (primary) hypertension; E03.9 Hypothyroidism, unspecified; E78.5 Hyperlipidemia, unspecified; I25.10 Atherosclerotic heart disease of native coronary artery without angina pectoris; E78.00 Pure hypercholesterolemia, unspecified; G43.909 Migraine, unspecified, not intractable, without status migrainosus; K21.9 Gastro-esophageal reflux disease without esophagitis; K44.9 Diaphragmatic hernia without obstruction or gangrene; G89.29 Other chronic pain; F41.9 Anxiety disorder, unspecified; F32.9 Major depressive disorder, single episode, unspecified; Z79.82 Long term (current) use of aspirin; Z79.899 Other long term (current) drug therapy; Z90.722 Acquired absence of ovaries, bilateral; Z90.710 Acquired absence of both cervix and uterus; Z88.1 Allergy status to other antibiotic agents; Z80.0 Family history of malignant neoplasm of digestive organs
CPT/HCPCS: 36569; 74022; 74178; 76937; 80053 ×2; 81000; 82962 ×2; 83036; 83605; 83735; 83880; 84132; 84484; 85025 ×2; 87088; 93005; 93041; 96361; 96374; 99284; C1751; G0378; 36415

== ENCOUNTER → 2020-09-14 | Outpatient (CLI) | payer OTHER ==
[~2020-09-14] MED LIST changes: +IBUP-2473 PO; +LEVO175T58 PO; +LISI20TA26 PO; +MONT10TA32 PO
[2020-09-14 08:07] LABS: BILIRUBIN,URINE NEGATIVE (NEGATIVE); CLARITY,URINE CLOUDY; COLOR,URINE YELLOW; GLUCOSE, URINE (UA) TRACE (NEGATIVE); KETONES,URINE NEGATIVE (NEGATIVE); LEUKOCYTE ESTERASE ,URINE 1+ (NEGATIVE); NITRITE,URINE POSITIVE (NEGATIVE); PROTEIN,URINE 3+ (NEGATIVE)
[2020-09-14 08:13] LABS: BACTERIA,URINE LARGE /HPF; WBC,URINE TNTC /HPF
[2020-09-14 08:31] LABS: ABSOLUTE RETIC # 103 10e9/uL (24-90); BASOPHILS # (AUTO) 0.1 10^3/uL (0.0-0.1); BASOPHILS % (AUTO) 1 % (0-10); EOSINOPHILS # (AUTO) 0.3 10^3/uL (0.0-0.3); EOSINOPHILS % (AUTO) 2 % (0-10); HEMATOCRIT 40 % (35-52); HEMOGLOBIN 12.7 g/dL (11.5-16.0); LYMPHOCYTES % (AUTO) 13 % (12-44); MEAN CORPUSCULAR HEMOGLOBIN 30 pg (25-34); MEAN CORPUSCULAR HGB CONC 32 g/dL (32-36); MEAN CORPUSCULAR VOLUME 93 fL (80-99); MEAN PLATELET VOLUME 9.5 fL (9.0-12.2); MONOCYTES # (AUTO) 0.8 10^3/uL (0.0-1.0); MONOCYTES % (AUTO) 5 % (0-12); NEUTROPHILS # (AUTO) 11.6 10^3/uL (1.8-7.8); NEUTROPHILS % (AUTO) 78 % (42-75); PLATELET COUNT 475 10^3/uL (130-400); RETICULOCYTE % 2.39 % (0.50-2.40); WHITE BLOOD COUNT 14.8 10^3/uL (4.3-11.0)
[2020-09-14 08:34] LABS: ALBUMIN 3.1 GM/DL (3.2-4.5); BILIRUBIN,TOTAL 0.2 MG/DL (0.1-1.0); CALCIUM 8.9 MG/DL (8.5-10.1); CREATININE SERUM 1.05 MG/DL (0.60-1.30); POTASSIUM 4.4 MMOL/L (3.6-5.0); TOTAL PROTEIN 6.7 GM/DL (6.4-8.2)
[2020-09-14 08:52] LABS: ANISOCYTOSIS SLIGHT; BAND NEUTROPHILS 3 %; BASOPHILS % (MANUAL) 1 %; EOSINOPHILS % (MANUAL) 1 %; LYMPHOCYTES % (MANUAL) 11 %; MONOCYTES % (MANUAL) 4 %; NEUTROPHILS % (MANUAL) 80 %
--- NOTE | 2020-09-14 09:54 | Diagnostic Imaging Report ---
EXAMINATION: US Abdomen limited. TECHNIQUE: Multiple real-time grayscale images were obtained over the right upper quadrant in various projections. HISTORY: Right upper quadrant and epigastric pain. COMPARISON: CT abdomen and pelvis from 09/03/2020. FINDINGS: Pancreas: The pancreas is nonvisualized secondary to overlying bowel gas. Liver: The liver is normal in echogenicity and contour. No focal lesions are seen. The portal vein is patent with hepatopetal flow. Gallbladder and biliary tree: Gallbladder is normal without wall thickening, pericholecystic fluid, or sonographic White sign. There is no biliary ductal dilation. The common duct measures 0.6 cm. Right kidney: The right kidney is normal without hydronephrosis. Aorta and IVC: The visualized aorta and inferior vena cava are normal. Fluid: No ascites is seen. IMPRESSION: 1. Unremarkable right upper quadrant ultrasound. Dictated by: Dictated on workstation # [id number]
--- NOTE | 2020-09-14 13:21 | Diagnostic Imaging Report ---
CLINICAL INDICATION: Patient with right upper quadrant abdominal pain and epigastric pain and bloating. COMPARISON: Nuclear medicine gastric emptying study dated 03/04/2012. PROCEDURE: Solid Gastric emptying study After oral ingestion of 1.1 millicuries of technetium 99M sulfur colloid, mixed with scrambled egg, sequential imaging of the abdomen is performed. Computer analysis is performed and gastric emptying curves are calculated. FINDINGS: Patient previously had gastric emptying study. There is gastric emptying demonstrated with sequential imaging. The residual retained gastric activity: 1 hour: 2% (less than 30% equals rapid and greater than 90% equals delayed) 2 hours: 1% (greater than 60% represents abnormally delayed) 3 hours: 0% (greater than 30% represents abnormally delayed) IMPRESSION: Abnormal gastric emptying study with very rapid gastric emptying noted. Dictated by: Dictated on workstation # [id number]
== END ==
LOC: CARD 07:51
PROVIDERS: ATTEND Physician Assistant
DX: R10.11 Right upper quadrant pain (principal); R10.13 Epigastric pain; R14.0 Abdominal distension (gaseous)
CPT/HCPCS: 76705; 78264; 80053; 81000; 85007; 85027; 85045; 85055; 87077; 87088; A9541; 36415

== ENCOUNTER 2020-09-20 12:16 | Outpatient (CLI) | payer OTHER ==
[~2020-09-20] VITALS: Ht 165.1 cm; Wt 53.6 kg
[2020-09-20] MEDS ORDERED: NS IV 1000 ML 1,000 ML ONE (12:24)
[2020-09-20 12:45] VITALS: BP 102/55
[2020-09-20] MEDS ORDERED: NS IV 1000 ML 1,000 ML IV ONE (13:00)
[2020-09-20 13:17] LABS: MEAN PLATELET VOLUME 8.8 fL (9.0-12.2); WHITE BLOOD COUNT 20.4 10^3/uL (4.3-11.0)
[2020-09-20 13:37] LABS: ALBUMIN 3.4 GM/DL (3.2-4.5); BILIRUBIN,TOTAL 0.2 MG/DL (0.1-1.0); CALCIUM 9.3 MG/DL (8.5-10.1); CREATININE SERUM 1.46 MG/DL (0.60-1.30); POTASSIUM 4.5 MMOL/L (3.6-5.0); TOTAL PROTEIN 7.3 GM/DL (6.4-8.2)
== END 2020-09-20 15:00 | disposition home or self-care (01) ==
LOC: SDC 12:16
PROVIDERS: ATTEND Physician Assistant
DX: E86.0 Dehydration (principal)
CPT/HCPCS: 36415; 80053; 85027; 85652; 86141; 96360

== ENCOUNTER → 2020-09-29 | Outpatient (CLI) | payer OTHER ==
[~2020-09-29] MED LIST changes: +CATHETER FLUSH 10 ML SYR IV PRN
--- NOTE | 2020-09-29 09:31 | Diagnostic Imaging Report ---
Nuclear medicine hepatobiliary scan. Indication: Right upper quadrant pain. The study was performed following administration of 5.42 mCi 9M technetium Choletec. One can of Ensure was also utilized for the calculation of the ejection fraction. There are no prior nuclear medicine hepatobiliary scans available for comparison. The nuclear medicine gastric emptying exam of 09/14/2020 noted very rapid gastric emptying. The gallbladder ultrasound exam performed on 09/14/2020 was unremarkable for cholelithiasis or acute cholecystitis On this exam, there is delayed uptake of radiotracer by the gallbladder. Normally, radiotracer seen within the gallbladder in 30 minutes. However it was not until 40 minutes before the radiotracer appeared in the region of the gallbladder. There is extension of the radiotracer into the small bowel indicating the common bile duct is not obstructed. Ejection fraction is 24.8% (normal greater than 35%). Impression: There is no evidence for acute cholecystitis or for obstruction the common bile duct. However, the delayed uptake of the radiotracer by the gallbladder does suggest chronic cholecystitis. The ejection fraction is also below normal limits. Dictated by: Dictated on workstation # [id number]
== END ==
LOC: CARD 06:42
PROVIDERS: ATTEND Physician Assistant
DX: R10.11 Right upper quadrant pain (principal)
CPT/HCPCS: 78227; A9537

== ENCOUNTER 2020-10-08 10:39 | Outpatient (CLI) | payer OTHER ==
[~2020-10-08] VITALS: Ht 167.7 cm; Wt 53.6 kg
[~2020-10-08 10:39] MED LIST changes: -CATHETER FLUSH 10 ML SYR IV PRN
[2020-10-08] MEDS ORDERED: NS IV 1000 ML 1,000 ML ONE (10:41)
[2020-10-08] MEDS ORDERED: ONDANSETRON 4 MG/2 ML (SDV) Z0FRAN ONE (10:43)
[2020-10-08 11:00] VITALS: BP 117/60
[2020-10-08] MEDS ORDERED: SODIUM CHLORIDE IV SCH (11:30)
[2020-10-08] MEDS ORDERED: ONDANSETRON 4 MG/2 ML (SDV) Z0FRAN IVP ONE (11:30)
[2020-10-08 12:03] LABS: HEMOGLOBIN 12.7 g/dL (11.5-16.0); MEAN PLATELET VOLUME 9.7 fL (9.0-12.2); WHITE BLOOD COUNT 17.1 10^3/uL (4.3-11.0)
[2020-10-08 12:24] LABS: ALBUMIN 3.4 GM/DL (3.2-4.5); BILIRUBIN,TOTAL 0.4 MG/DL (0.1-1.0); CALCIUM 8.9 MG/DL (8.5-10.1); CREATININE SERUM 1.81 MG/DL (0.60-1.30); POTASSIUM 4.8 MMOL/L (3.6-5.0); TOTAL PROTEIN 6.7 GM/DL (6.4-8.2)
[2020-10-08 14:00] VITALS: BP 117/60
== END 2020-10-08 14:00 | disposition home or self-care (01) ==
LOC: SDC 10:39
PROVIDERS: ATTEND Nurse Practitioner Family
DX: E86.0 Dehydration (principal); R11.2 Nausea with vomiting, unspecified
CPT/HCPCS: 36415; 80053; 82962; 85027; 96360; 96361; 96374

== ENCOUNTER 2020-10-18 11:06 | Outpatient (CLI) | payer OTHER ==
[~2020-10-18] VITALS: Ht 167.7 cm; Wt 53.6 kg
[2020-10-18 11:29] LABS: BASOPHILS # (AUTO) 0.3 10^3/uL (0.0-0.1); BASOPHILS % (AUTO) 2 % (0-10); EOSINOPHILS # (AUTO) 0.2 10^3/uL (0.0-0.3); EOSINOPHILS % (AUTO) 1 % (0-10); HEMATOCRIT 48 % (35-52); HEMOGLOBIN 15.2 g/dL (11.5-16.0); LYMPHOCYTES # (AUTO) 3.1 10^3/uL (1.0-4.0); LYMPHOCYTES % (AUTO) 21 % (12-44); MEAN CORPUSCULAR HEMOGLOBIN 30 pg (25-34); MEAN CORPUSCULAR HGB CONC 32 g/dL (32-36); MEAN CORPUSCULAR VOLUME 94 fL (80-99); MEAN PLATELET VOLUME 9.7 fL (9.0-12.2); MONOCYTES # (AUTO) 0.9 10^3/uL (0.0-1.0); MONOCYTES % (AUTO) 6 % (0-12); NEUTROPHILS # (AUTO) 10.6 10^3/uL (1.8-7.8); NEUTROPHILS % (AUTO) 70 % (42-75); PLATELET COUNT 485 10^3/uL (130-400); WHITE BLOOD COUNT 15.2 10^3/uL (4.3-11.0)
[2020-10-18 11:48] LABS: ALBUMIN 3.8 GM/DL (3.2-4.5); BILIRUBIN,TOTAL 0.4 MG/DL (0.1-1.0); CREATININE SERUM 1.64 MG/DL (0.60-1.30); TOTAL PROTEIN 8.4 GM/DL (6.4-8.2)
[2020-10-18 11:51] LABS: POTASSIUM 5.7 MMOL/L (3.6-5.0)
[2020-10-18 12:04] LABS: BAND NEUTROPHILS 0 %; BASOPHILS % (MANUAL) 1 %; EOSINOPHILS % (MANUAL) 1 %; LYMPHOCYTES % (MANUAL) 27 %; MONOCYTES % (MANUAL) 4 %; NEUTROPHILS % (MANUAL) 67 %; RBC MORPH NORMAL
[2020-10-18] MEDS ORDERED: ONDANSETRON 4 MG/2 ML (SDV) Z0FRAN ONE (12:15)
[2020-10-18] MEDS ORDERED: NS IV 1000 ML 1,000 ML ONE (12:16)
--- NOTE | 2020-10-18 12:18 | Diagnostic Imaging Report ---
PROCEDURE: CT abdomen and pelvis without contrast. TECHNIQUE: Multiple contiguous axial images were obtained through the abdomen and pelvis without the use of intravenous contrast. Auto Exposure Controls were utilized during the CT exam to meet ALARA standards for radiation dose reduction. INDICATION: Nausea, vomiting and diarrhea with weight loss. COMPARISON: Correlation is made with prior CT from 09/03/2020. FINDINGS: Lung bases remain clear. The liver and gallbladder are unremarkable. Unopacified pancreas and spleen are unremarkable. No definite adrenal mass is detected. Kidneys are without calculi or hydronephrosis. Aorta and iliac vessels are heavily calcified. There appears to be a stent in the right common iliac artery. Visualized bowel loops appear to be normal in caliber. There is no obstruction. There is moderate stool in the colon. Bladder is decompressed. Uterus appears to be absent or atrophic. No definite abdominal or pelvic lymphadenopathy is seen. IMPRESSION: Essentially unremarkable noncontrast CT of the abdomen and pelvis. No acute feature is detected. Dictated by: Dictated on workstation # [id number]
[2020-10-18 12:20] VITALS: BP 111/59
[2020-10-18] MEDS ORDERED: ONDANSETRON 4 MG/2 ML (SDV) Z0FRAN IV ONE (12:45)
[2020-10-18] MEDS ORDERED: NS IV 1000 ML 1,000 ML IV ONE (12:45)
== END 2020-10-18 14:36 | disposition home or self-care (01) ==
LOC: RAD 11:06
PROVIDERS: ATTEND Nurse Practitioner Family
DX: R11.2 Nausea with vomiting, unspecified (principal); R19.7 Diarrhea, unspecified; R63.4 Abnormal weight loss
CPT/HCPCS: 36415; 74176; 80053; 82150; 83690; 85007; 85027; 96360; 96361; 96374

== ENCOUNTER 2020-10-21 11:21 | Inpatient (IN) | payer OTHER ==
[~2020-10-21] VITALS: Ht 165 cm; Wt 54.3 kg
[2020-10-21] VITALS (12 sets, daily range): BP systolic 91–150; BP diastolic 39–80
[~2020-10-21 11:21] MED LIST changes: -ACYC400T PO; +ACYC400T21 PO
[2020-10-21] MEDS ORDERED: ceFAZolin INJECTION 1,000 MG in WATER (STERILE) FOR INJECTION 10 ML IV ONE (11:30)
[2020-10-21] MEDS: LACTATED RINGERS 1,000 ML IV PRN ×3 (12:19→19:09)
[2020-10-21] MEDS ORDERED: RT-ALBUTEROL SULF 2.5 MG/3 ML PRE-MIX VIAL INH ONE (12:30)
--- NOTE | 2020-10-21 12:38 | Progress Note-Pre Operative ---
Pre-Operative Progress Note H&P Reviewed The H&P was reviewed, patient examined and no changes noted. Date Seen by Provider: Oct 21, 2020 Time Seen by Provider: 12:00 Date H&P Reviewed: Oct 21, 2020 Time H&P Reviewed: 12:00 Pre-Operative Diagnosis: sx biliary dyskinesia, GERD, weight loss, FH colon ca NAKUL YUEN MD Oct 21, 2020 12:38
--- NOTE | 2020-10-21 12:40 | Discharge Inst-Surgical ---
D/C Lap Instructions-WILFRID Follow Up Appt in 2 weeks Activity as tolerated No driving for 24 hours No [address] while on pain medications Incentive Spirometry use every 2 hours while awake Regular Diet Symptoms to Report: Fever over 101 degree F, Nausea/Vomiting Infection Signs and Symptoms to report: Increased redness, Foul odor of wound, Increased drainage Bathing instructions: May shower Operative Area Clean/Dry; Keep incision clean/dry If any problems/questions: Contact your physician or go to Emergency Room NAKUL YUEN MD Oct 21, 2020 12:40
[2020-10-21] MEDS ORDERED: POLY17PO6 PO (12:44)
[2020-10-21] MEDS ORDERED: ONDA8TAB13 PO (12:44)
[2020-10-21] MEDS ORDERED: ACETAMINOPHEN 325 MG TABLET PO PRN (12:45)
[2020-10-21] MEDS ORDERED: morphine INJ 10 MG/ML 1ML (SYR OR VIAL) IVP PRN ×2 (12:45)
[2020-10-21] MEDS ORDERED: ONDANSETRON 4 MG/2 ML (SDV) Z0FRAN IVP PRN ×2 (12:45→18:00)
[2020-10-21] MEDS ORDERED: fentaNYL INJ 100 MCG/2 ML AMP ONE ×2 (12:55→16:13)
[2020-10-21] MEDS ORDERED: ROCURONIUM 10 MG/ML 5 ML SYRINGE IV ONE (12:55)
[2020-10-21] MEDS ORDERED: proPOfol 200 MG/20 ML (DIPRIVAN) VIAL IV ONE ×2 (12:55→17:36)
[2020-10-21] MEDS ORDERED: LIDOCAINE PF 2% 5 ML (XYLOCAINE) VIAL ONE (12:55)
[2020-10-21] MEDS ORDERED: ONDANSETRON 4 MG/2 ML (SDV) Z0FRAN ONE (12:55)
[2020-10-21] MEDS ORDERED: MIDAZOLAM 2 MG/2 ML (VERSED) VIAL ONE ×2 (12:56→16:13)
[2020-10-21] MEDS ORDERED: HEParin (CENTRAL IV FLUSH) 500 UNIT/5 ML SYR ONE (13:08)
[2020-10-21] MEDS ORDERED: 0.9% SODIUM CHLORIDE PF INJ 20 ML VIAL ONE (13:08)
[2020-10-21] MEDS ORDERED: LIDOCAINE/EPI 1%-1:200,000 (XYLOCAINE) 10 ML VIAL ONE (13:09)
[2020-10-21] MEDS: LIDOCAINE/EPI 1%-1:100,000 (XYLOCAINE) 20ML ONE ×2 (16:32→17:24)
[2020-10-21] MEDS ORDERED: ESMOLOL 100 MG/10 ML (BREVIBLOC) VIAL ONE (16:39)
[2020-10-21] MEDS ORDERED: NEOSTIGMINE 3 MG/3 ML VIAL ONE (17:01)
[2020-10-21] MEDS ORDERED: GLYCOPYRROLATE 0.2 MG/ML (ROBINUL) 2 ML VIAL ONE (17:01)
[2020-10-21] MEDS ORDERED: PHENYLEPHRINE 100 MCG/ML 10 ML (ANESTHESIA) SYR ONE (17:37)
--- NOTE | 2020-10-21 17:38 | Progress Note-Post Operative ---
Post-Operative Progess Note Surgeon (s)/Section Forest Fire Warden (s) Surgeon Dr. Iggy Haynes M.D. Section Forest Fire Warden: Chivo Rubi SUPERVISOR NUCLEAR MEDICINE Pre-Operative Diagnosis sx biliary dyskinesia, GERD, weight loss, FH colon ca Post-Operative Diagnosis Biliary dyskinesia, Poor venous access, Reflux esophagitis stage II, moderate to severe gastritis, Mild chronic external and internal hemorrhoids, hepatic flexure polyp, transverse colon polyp Procedure & Operative Findings Date of Procedure 10/21/20 Procedure Performed/Findings Laparoscopic cholecystectomy, Placement of left subclavin groshong port, EGD with biopsy, and colonoscopy with biopsy Anesthesia Type GET Estimated Blood Loss Estimated blood loss (mL): Minimal Specimens/Packing Specimens Removed 1) Gallbladder 2) Antrum 3) GE junction 4) Hepatic flexure polyp 5) Transverse colon polyp CHIVO RUBI SUPERVISOR NUCLEAR MEDICINE Oct 21, 2020 17:38
--- NOTE | 2020-10-21 17:39 | Diagnostic Imaging Report ---
HISTORY: Port placement. TECHNIQUE: Single fluoroscopic view of the chest was saved. FLUOROSCOPY TIME: 3.1 seconds FINDINGS: Endotracheal tube and sternotomy wires are noted. A left-sided catheter projects over the low SVC. IMPRESSION: Intraoperative fluoroscopy was used for the patient's procedure. Dictated by: Dictated on workstation # [id number]
[2020-10-21] MEDS ORDERED: RT-ALBUTEROL INHALER HFA (VENTOLIN HFA) 18 GM IH ONE (17:54)
[2020-10-21] MEDS ORDERED: morphine INJ 10 MG/ML 1ML (SYR OR VIAL) IVP ONE (18:00)
[2020-10-21] MEDS ORDERED: MEPERIDINE (DEMEROL) INJ 50 MG/ML IVP ONE (18:00)
[2020-10-21] MEDS ORDERED: HYDROmorphone 2 MG/ML VIAL (DILAUDID) IV ONE (18:00)
[2020-10-21] MEDS ORDERED: fentaNYL INJ 100 MCG/2 ML AMP IVP ONE (18:00)
--- NOTE | 2020-10-21 18:08 | Anesthesia-General Post-Op ---
General Patient Condition Mental Status/LOC: Same as Preop Cardiovascular: Satisfactory Nausea/Vomiting: Absent Respiratory: Satisfactory Pain: Controlled Complications: Absent Post Op Complications Complications None Follow Up Care/Instructions Patient Instructions None needed. Anesthesia/Patient Condition Patient Condition Patient is doing well, no complaints, stable vital signs, no apparent adverse anesthesia problems. No complications reported per nursing. ANH MEDINA CRNA Oct 21, 2020 18:08
[2020-10-21] MEDS ORDERED: inSUlin (REGULAR) HUMAN 1 UNIT/0.01 ML (CHARGE PER UNIT) ONE (18:32)
[2020-10-21] MEDS ORDERED: inSUlin ASPART (NovoLOG) 1 UNIT/0.01 ML (CHARGE PER UNIT) ONE ×2 (18:34→18:38)
[2020-10-21] MEDS: inSUlin ASPART (NovoLOG) 1 UNIT/0.01 ML (CHARGE PER UNIT) SC SCH ×2 (18:43→20:09)
--- NOTE | 2020-10-21 19:26 | Diagnostic Imaging Report ---
INDICATION: Port placement. EXAMINATION: Portable AP upright view of the chest was obtained. Since 09/03/2020 there has been placement of left anterior chest wall port with catheter tip projecting over the mid superior vena cava. There is mild cardiomegaly. No pneumothorax or consolidation is identified. There is pneumoperitoneum. Patient has apparently undergone recent cholecystectomy. IMPRESSION: Postoperative pneumoperitoneum. Clinical correlation would be useful. There is no evidence of complication related to left anterior chest wall port placement. Dictated by: Dictated on workstation # [id number]
[2020-10-21] MEDS: MONTELUKAST 10 MG (SINGULAIR) TAB PO SCH (23:09)
[2020-10-21] MEDS: GABAPENTIN 100 MG (NEURONTIN) CAP PO SCH (23:10)
[2020-10-21] MEDS: busPIRone 5 MG (BUSPAR) TAB PO SCH (23:10)
[2020-10-22] VITALS (18 sets, daily range): BP systolic 101–208; BP diastolic 48–103
--- NOTE | 2020-10-22 03:29 | OPERATIVE REPORT ---
DATE OF SERVICE: 10/21/2020 ATTENDING PRIMARY CARE PHYSICIAN: Dr. Phillip Sanchez. PREOPERATIVE DIAGNOSES: Right upper abdominal quadrant pain, reflux, nausea, vomiting, weight loss, family history of colon cancer. POSTOPERATIVE DIAGNOSES: Biliary dyskinesia, reflux esophagitis stage II, no recurrent hiatal hernia, moderate to severe diffuse gastritis. No distal obstructions. Mild chronic stage II external and internal hemorrhoids, small polyp of the transverse colon and hepatic flexure. PROCEDURES: Laparoscopic cholecystectomy, left subclavian Groshong implantable catheter placement under fluoroscopy. EGD with biopsy. Colonoscopy with biopsy. SURGEON: Nakul Haynes MD STRIPPER SOFT P[employer]IC: Chivo Schmid APRN. ANESTHESIA: General endotracheal. ESTIMATED BLOOD LOSS: Minimal. FINDINGS: Biliary dyskinesia, reflux esophagitis stage II, no recurrent hiatal hernia, moderate to severe diffuse gastritis. No distal obstructions. Mild chronic stage II external and internal hemorrhoids, small polyp of the transverse colon and hepatic flexure. DISPOSITION: The patient tolerated the procedure well. INDICATIONS: The patient is a 60-year-old female referred over to us for right upper abdominal quadrant pain, reflux, nausea and vomiting, weight loss and dehydration. She is also in need of a screening colonoscopy with a family history of colon cancer. During her workup, she underwent a gallbladder ultrasound, which was negative; however, HIDA scan did show a low ejection fraction of 24.8% and this did elicit nausea and vomiting consistent with symptomatic biliary dyskinesia. She also has had a history of gastroesophageal reflux disease and does have some epigastric burning sensation. She is also in need of a screening colonoscopy. She does have a family history of colon cancer with her brother having the disease. DESCRIPTION OF PROCEDURE: The patient was brought to the operating room, laid supine on the table. After adequate IV pain and sedative medications and general endotracheal intubation, the abdomen was prepped and draped in standard surgical fashion. A 0.5% Marcaine with epinephrine was then used to anesthetize the overlying skin in the left upper abdominal quadrant and a transverse skin incision made using a 15 blade. An 0 silk suture was applied to the medial aspect of the incision for retraction and a Veress needle inserted with a low opening pressure of 0 mmHg. The abdomen was then insufflated to 15 mmHg. The Veress needle removed and a 5 mm XL trocar placed followed by a 5 mm 45-degree angle laparoscope visualizing the peritoneal cavity. A 4-quadrant abdominal exploration was performed. There was a slightly distended gallbladder, no gallbladder wall thickening, no unusual lesions identified. Under direct visualization, we then proceeded to place a supraumbilical 10 mm port after the skin and peritoneal lining were anesthetized using 0.5% Marcaine with epinephrine and a transverse skin incision made using a 15 blade. In a similar manner, a right upper abdominal quadrant 5 mm port was placed. The patient was then placed in a reverse Trendelenburg position as well as plane right side up, left side down. The fundus of the gallbladder was then retracted anteriorly and superiorly. The hepatoduodenal ligament was then dissected using blunt dissection as well as electrocautery on the hook instrument. The entire critical view of safety was identified including the triangle of Calot as well as the cystic duct and artery as only two structures going into the gallbladder as well as the cystic plate behind the proximal gallbladder. A timeout was then taken, and the cystic duct and artery were then clipped proximally and distally and cut with EndoShears. The gallbladder was then dissected off the liver bed using electrocautery and hook instrument with visualization of good hemostasis as well as no leaking ducts of Luschka. The gallbladder was removed through the 10 mm port site using an EndoCatch bag. The 10 mm port site fascia and peritoneum were then closed under direct visualization using a Brice-Iron device and 0 Vicryl suture. The abdomen was then desufflated and remaining ports removed. All skin incisions were closed using 4-0 Monocryl running subcuticular sutures. Wounds were then cleaned and covered with Dermabond. The chest and neck were then prepped and draped in standard surgical fashion and the left subclavian vein was cannulated withdrawing of venous blood. The guidewire was then inserted under fluoroscopy. The cannulating needle removed, and a skin incision made using a 15 blade. The dilator and sheath were then introduced over the guidewire and the guidewire and dilator were then removed and the Groshong implantable catheter was placed until the tip of the catheter was at the superior vena caval -- right atrial junction. The sheath was then removed. The inner wire within the catheter was then removed and the catheter cut down to size and port placed onto the catheter. The chest reservoir was then created by extending the incision laterally using a 15 blade. A plane was then created between the subcutaneous fat and the anterior pectoralis fascia using blunt dissection as well as electrocautery with visualization of good hemostasis. The port was then placed into the reservoir and sutured to the pectoralis fascia using interrupted 3-0 Vicryl sutures. Subcutaneous tissue was then reapproximated using 3-0 Vicryl interrupted sutures and skin was closed using 4-0 Monocryl running subcuticular suture. Wound was then cleaned and covered with Dermabond. The mouthpiece was then applied, and the endoscope was placed in the mouth, visualizing the pharynx and hypopharyngeal region visualizing the vocal cords, epiglottis and vallecula, which appeared to be normal. The endoscope was gently intubated. The esophageal opening and esophagus insufflated. The endoscope was then advanced through the first, second and third portion of esophagus at the level of the GE junction, a reflux esophagitis stage II identified. There were no ulcers or strictures identified in this region. A biopsy was taken with forceps with visualization of good hemostasis. The endoscope was then advanced in the stomach and endoscope retroflexed, visualizing previous antireflux procedure, which was intact as well as no recurrent hiatal hernia. There was a moderate to severe diffuse gastritis noted throughout the stomach with some old blood within the stomach, no active bleeding sites. There were no active ulcerations as well. A biopsy was taken of the antrum to rule out H. pylori with visualization of good hemostasis. The endoscope was then advanced to the pylorus and the first and second portion of the duodenum, which appeared normal with no distal obstructions. The endoscope was then slowly withdrawn while taking a second look and suctioning of residual air with no additional findings. The patient was then placed in frog leg position and a digital rectal examination was performed, which revealed mild chronic stage II external and internal hemorrhoids, which were not actively edematous nor inflamed and no bleeding. Normal sphincter tone was felt and there were no palpable masses. The endoscope was then intubated to the anus and rectum gently insufflated. The endoscope was then advanced to the valves of Valdes of the rectum with no polyps or any neoplasms identified. Through the sigmoid colon, no diverticulosis identified. The endoscope was then advanced to the remainder of the descending and transverse colon where a small polyp approximately 2 mm in size was identified at the transverse colon as well as the hepatic flexure, both of these were biopsied and destroyed using forceps and electrocautery with visualization of good hemostasis. The endoscope was then advanced to the remainder of the ascending colon and to the cecum, which were normal. The endoscope was then slowly withdrawn while taking a second look and suctioning of residual air with no additional findings. The patient tolerated the procedure well. We will start IV normal pain medication as well as a clear liquid diet. Once she is tolerating clears, has good pain control with oral pain medications, ambulating well, we will discharge her home. The Groshong implantable catheter may be accessed and used at any time. For her reflux esophagitis and moderate to severe gastritis, we will start her on Protonix 40 mg daily as well as reduction of risk factors, which mostly entail smoking as well as caffeinated beverages. We will also have her proceed with high-fiber diet with fiber supplementation, which should equal or exceed at least 25 grams daily as well as significant amounts of water to promote soft stools on a daily basis and not to rely on laxatives to have bowel movements. Due to her first-degree family history of colon cancer, we will recommend a followup colonoscopy in approximately 5 years. Job ID: [id number] DocumentID: [id number] Dictated Date: 10/21/2020 18:06:56 Food Quality Tester Date: 10/22/2020 03:28:13 Dictated By: NAKUL HAYNES MD
[2020-10-22 05:45] LABS: POTASSIUM 6.4 MMOL/L (3.6-5.0)
[2020-10-22 05:47] LABS: CALCIUM 7.6 MG/DL (8.5-10.1)
[2020-10-22 05:51] LABS: CREATININE SERUM 1.58 MG/DL (0.60-1.30)
[2020-10-22] MEDS: inSUlin ASPART (NovoLOG) 1 UNIT/0.01 ML (CHARGE PER UNIT) SC SCH ×4 (06:00→21:00)
[2020-10-22] MEDS ORDERED: LEVOTHYROXINE 100 MCG (LEVOTHROID) TAB PO SCH (06:30)
[2020-10-22] MEDS ORDERED: LEVOTHYROXINE 75 MCG (LEVOTHROID) TABLET PO SCH (06:30)
[2020-10-22] MEDS ORDERED: FUROSEMIDE 40 MG/4 ML INJ (LASIX) IVP NR (08:00)
[2020-10-22] MEDS ORDERED: SOD POLYSTERENE 15 GM/60 ML (KAYEXALATE) UNIT DOSE PO NR (08:00)
[2020-10-22] MEDS: busPIRone 5 MG (BUSPAR) TAB PO SCH ×2 (08:37→20:56)
[2020-10-22] MEDS ORDERED: polyethylene glycoL POWDER 17 GM (MIRALAX) PACK PO SCH (09:00)
[2020-10-22] MEDS ORDERED: CLOPIDOGREL 75 MG (PLAVIX) TABLET PO SCH (09:00)
[2020-10-22] MEDS ORDERED: lisINopril 20 MG (PRINIVIL) TABLET PO SCH (09:00)
[2020-10-22] MEDS ORDERED: PARoxetine 20 MG (PAXIL) TAB PO SCH (09:00)
[2020-10-22] MEDS ORDERED: ASPIRIN 81 MG CHEW (CHILDREN'S ASA) PO SCH (09:00)
[2020-10-22] MEDS ORDERED: morphine INJ 4 MG/ML 1 ML (VIAL/SYRINGE) ONE (10:08)
[2020-10-22] MEDS ORDERED: morphine INJ 4 MG/ML 1 ML (VIAL/SYRINGE) IVP PRN (10:30)
--- NOTE | 2020-10-22 11:45 | Progress Note ---
Subjective Date Seen by a Provider: Oct 22, 2020 Time Seen by a Provider: 11:00 Subjective/Events-last exam doing ok but still having pain issues. continues to have hyperglycemia and hyperkalemia. tolerating liquids. mild ambulation thus far. Objective Exam Vital Signs Date Time Temp Pulse Resp B/P (MAP) Pulse Ox O2 Delivery O2 Flow Rate FiO2 10/22/20 08:00 Room Air 10/22/20 07:13 36.2 91 20 144/68 (93) 95 Room Air 10/22/20 04:17 36.0 87 20 178/81 (113) 95 Nasal Cannula 2.00 10/21/20 23:07 36.4 75 16 116/59 (78) 98 Nasal Cannula 2.00 10/21/20 20:20 36.5 16 111/61 (78) 96 Nasal Cannula 2 10/21/20 20:20 Nasal Cannula 2 10/21/20 20:00 36.4 80 16 127/80 (96) 99 Nasal Cannula 2.00 10/21/20 20:00 Nasal Cannula 2 10/21/20 20:00 14 112/56 (74) 96 Nasal Cannula 2 10/21/20 19:45 16 102/55 (71) 96 Nasal Cannula 2 10/21/20 19:45 Nasal Cannula 2 10/21/20 19:30 12 91/46 (61) 95 OxyMask 2 10/21/20 19:30 Nasal Cannula 2 10/21/20 19:15 16 113/55 (74) 100 OxyMask 2 10/21/20 19:15 OxyMask 2 10/21/20 19:00 OxyMask 2 10/21/20 19:00 14 95/43 (60) 97 OxyMask 2 10/21/20 18:45 16 110/48 (68) 100 OxyMask 2 10/21/20 18:45 OxyMask 2 10/21/20 18:30 14 109/44 (65) 100 OxyMask 4 10/21/20 18:25 OxyMask 6 10/21/20 18:15 16 92/39 (56) 99 OxyMask 6 10/21/20 18:05 36.5 16 98/42 (60) 98 OxyMask 8 10/21/20 18:05 OxyMask 8 10/21/20 13:25 Room Air 10/21/20 12:00 37.0 90 18 150/71 (97) 99 Room Air I & O 10/22/20 07:00 Intake Total 2060 ml Output Total 150 ml Balance 1910 ml Capillary Refill : General Appearance: No Apparent Distress HEENT: PERRL/EOMI Neck: Full Range of Motion Respiratory: Decreased Breath Sounds, Wheezing Cardiovascular: Regular Rate, Rhythm Gastrointestinal: soft, tenderness Extremity: Normal Capillary Refill Neurologic/Psychiatric: Alert, Oriented x3 Skin: Normal Color Lymphatic: No Adenopathy Results Lab Laboratory Tests 10/21/20 18:12: Glucometer 599*H 10/21/20 18:18: Glucometer 595*H 10/21/20 19:41: Glucometer 598*H 10/21/20 21:11: Glucometer 435*H 10/21/20 22:42: Glucometer 306H 10/22/20 04:09: Glucometer 243H 10/22/20 05:17: Sodium Level 131L, Potassium Level 6.4H, Chloride Level 96L, Carbon Dioxide Level 21, Anion Gap 14, Blood Urea Nitrogen 31H, Creatinine 1.58H, Estimat Glomerular Filtration Rate 33, BUN/Creatinine Ratio 20, Glucose Level 315H, Calcium Level 7.6L 10/22/20 05:31: Glucometer 330H Assessment/Plan Assessment/Plan Assess & Plan/Chief Complaint s/p lap negar kirk, EGD, colonoscopy with hyperglycemia. IM consulted. increase ambulation and IS. diet as tolerated. NAKUL YUEN MD Oct 22, 2020 11:45
--- NOTE | 2020-10-22 11:50 | Consultation - Hospitalist ---
HPI History of Present Illness: HPI/Chief Complaint Jessica Yates is a 60-year-old female with past medical history of type 1 diabetes mellitus on insulin, chronic kidney disease stage III, who presented for a scheduled laparoscopic cholecystectomy due to biliary dyskinesia. She is now postop day 1. She is having severe abdominal pain. She reports nausea but no vomiting. She has not been able to eat. She denies fevers and chills. She denies chest pain and shortness of breath. She has no other complaints or concerns. Source: patient Exam Limitations: no limitations Date Seen 10/22/20 Attending Physician Benedict Haynes MD PCP Phillip Sanchez MD Referring Physician Date of Admission Home Medications & Allergies Home Medications Reviewed patient Home Medication Reconciliation performed by pharmacy medication reconciliations water supply technician and/or nursing. Patients Allergies have been reviewed. Allergies Allergies Coded Allergies ciprofloxacin (Verified Allergy, Mild, redness and itching , 12/04/18) redness and itching at iv site Patient Social History Tobacco Use?: Yes Tobacco type used: Cigarettes Smoking Status: Current Everyday Smoker Smokeless Tobacco Frequency: Never a User Use of E-Cig and/or Vaping dev: No Substance use?: No Alcohol Use?: No Pt stated abuse/neglect: No Immunizations Up To Date Influenza Vaccine Up-to-Date: Yes; Up-to-Date Tetanus Booster (TDap): Unknown Hepatitis A: No Hepatitis B: No TB Skin Test: None Date of Pneumonia Vaccine: Apr 02, 2013 Current Status status: No status: No Do you have an Advance Directi: No Communicates: Verbally Primary Language: Malaysian Preferred Spoken Language: Malaysian Is interpretation needed?: No Past Medical History T1DM on insulin CKD3 Family Medical History Family Hx: PSH: -RIGHT ILIAC ARTERY STENT -4 VESSEL CABG 12/2015 -RIGHT CAROTID ENDARTERECTOMY 12/2015 -TONSILLECTOMY -HYSTERECTOMY/BSO -LAPAROSCOPIC RENETTA FUNDOPLICATION -CERVICAL SPINE FUSION Review of Systems Constitutional: no symptoms reported Respiratory: no symptoms reported Cardiovascular: no symptoms reported Gastrointestinal: abdominal pain, nausea Genitourinary: no symptoms reported Musculoskeletal: no symptoms reported Skin: no symptoms reported Psychiatric/Neurological: No Symptoms Reported Physical Exam Physical Exam Vital Signs Vital Signs - First Documented 10/21/20 12:00 Temp 37.0 Pulse 90 Resp 18 B/P (MAP) 150/71 (97) Pulse Ox 99 O2 Delivery Room Air Capillary Refill : Height, Weight, BMI Height: 5'5.00" Weight: 125lbs. 0.0oz. [id number]; 20.60 BMI Method:Stated General Appearance: No Apparent Distress, Thin HEENT: PERRL/EOMI, Pharynx Normal Neck: Normal Inspection, Supple Respiratory: Decreased Breath Sounds, Wheezing Cardiovascular: Regular Rate, Rhythm, No Edema, No Murmur Gastrointestinal: Abnormal Bowel Sounds, Guarding, Tenderness, Other (Firm) Extremity: Normal Inspection, Non Tender, No Pedal Edema Neurologic/Psychiatric: Alert, Oriented x3, No Motor/Sensory Deficits Skin: Normal Color, Warm/Dry Lymphatic: No Adenopathy Results Results/Procedures Labs Laboratory Tests 10/22/20 05:17 10/22/20 11:51 Patient resulted labs reviewed. Imaging: Reviewed Imaging Report Assessment/Plan Assessment and Plan Assess & Plan/Chief Complaint Acute postoperative abdominal pain s/p laparoscopic cholecystectomy Biliary dyskinesia Sepsis Chronic kidney disease 3 Hyperkalemia POD #1 lap yelena Surgery primary, Dr. Haynes CXR showed pneumoperitoneum, expected postoperatively Given Lasix and Kayexalate for hyperkalemia WBC significantly elevated Check lactic acid and procalcitonin Add on hepatic panel Physical exam consistent with acute abdomen Will likely need return to the OR for exploration Dr. Haynes notified of patient's worsening status T1DM with hyperglycemia Resume Levemir Sliding scale insulin Diagnosis/Problems Diagnosis/Problems (1) Acute postoperative pain of abdomen Status: Acute (2) S/P laparoscopic cholecystectomy Status: Acute (3) Biliary dyskinesia Status: Acute (4) T1DM (type 1 diabetes mellitus) Status: Acute Qualifiers: Diabetes mellitus complication status: with hyperglycemia Qualified Codes: E10.65 - Type 1 diabetes mellitus with hyperglycemia (5) Hyperkalemia Status: Acute (6) CKD (chronic kidney disease) stage 3, GFR 30-59 ml/min Status: Chronic Qualifiers: Chronic kidney disease stage 3 subtype: stage 3b (GFR 30-44) Qualified Codes: N18.32 - Chronic kidney disease, stage 3b ANGELO ELLIS MD Oct 22, 2020 11:50
[2020-10-22 11:59] LABS: BASOPHILS # (AUTO) 0.2 10^3/uL (0.0-0.1); BASOPHILS % (AUTO) 1 % (0-10); EOSINOPHILS % (AUTO) 0 % (0-10); HEMATOCRIT 42 % (35-52); HEMOGLOBIN 13.2 g/dL (11.5-16.0); LYMPHOCYTES # (AUTO) 2.2 10^3/uL (1.0-4.0); LYMPHOCYTES % (AUTO) 7 % (12-44); MEAN CORPUSCULAR HEMOGLOBIN 30 pg (25-34); MEAN CORPUSCULAR HGB CONC 32 g/dL (32-36); MEAN CORPUSCULAR VOLUME 94 fL (80-99); MEAN PLATELET VOLUME 9.9 fL (9.0-12.2); MONOCYTES # (AUTO) 1.8 10^3/uL (0.0-1.0); MONOCYTES % (AUTO) 6 % (0-12); NEUTROPHILS # (AUTO) 27.8 10^3/uL (1.8-7.8); NEUTROPHILS % (AUTO) 87 % (42-75); PLATELET COUNT 371 10^3/uL (130-400)
[2020-10-22] MEDS ORDERED: inSUlin ASPART (NovoLOG) 1 UNIT/0.01 ML (CHARGE PER UNIT) SC SCH (12:00)
[2020-10-22 12:01] LABS: WHITE BLOOD COUNT 32.2 10^3/uL (4.3-11.0)
[2020-10-22 12:31] LABS: BAND NEUTROPHILS 0 %; BASOPHILS % (MANUAL) 0 %; EOSINOPHILS % (MANUAL) 0 %; LYMPHOCYTES % (MANUAL) 9 %; MONOCYTES % (MANUAL) 5 %; NEUTROPHILS % (MANUAL) 86 %; RBC MORPH NORMAL
[2020-10-22 12:35] LABS: ALBUMIN 3.1 GM/DL (3.2-4.5); BILIRUBIN,DIRECT 0.1 MG/DL (0.0-0.3); BILIRUBIN,INDIRECT 0.3 MG/DL; BILIRUBIN,TOTAL 0.4 MG/DL (0.1-1.0); TOTAL PROTEIN 6.2 GM/DL (6.4-8.2)
--- NOTE | 2020-10-22 12:38 | Progress Note-Pre Operative ---
Pre-Operative Progress Note H&P Reviewed The H&P was reviewed, patient examined and no changes noted. Date Seen by Provider: Oct 22, 2020 Time Seen by Provider: 12:30 Date H&P Reviewed: Oct 22, 2020 Time H&P Reviewed: 12:30 Pre-Operative Diagnosis: peritonitis s/p lap yelena, EGD, colo with polypectomy NAKUL YUEN MD Oct 22, 2020 12:38
[2020-10-22] MEDS ORDERED: proPOfol 200 MG/20 ML (DIPRIVAN) VIAL IV ONE (12:41)
[2020-10-22] MEDS ORDERED: LIDOCAINE PF 2% 5 ML (XYLOCAINE) VIAL ONE (12:41)
[2020-10-22] MEDS ORDERED: SEVOFLURANE (ULTANE) 15 ML INHAL SOLN ONE ×5 (12:41→15:04)
[2020-10-22] MEDS ORDERED: ROCURONIUM 10 MG/ML 5 ML SYRINGE IV ONE (12:41)
[2020-10-22] MEDS ORDERED: MIDAZOLAM 2 MG/2 ML (VERSED) VIAL ONE (12:42)
[2020-10-22] MEDS ORDERED: fentaNYL INJ 100 MCG/2 ML AMP ONE (12:42)
[2020-10-22] MEDS ORDERED: LACTATED RINGERS 1,000 ML IV PRN (12:45)
[2020-10-22] MEDS ORDERED: LIDOCAINE/EPI 1%-1:100,000 (XYLOCAINE) 20ML ONE (12:54)
[2020-10-22] MEDS ORDERED: PIPERACILLIN/TAZO 4.5 GM/NS 100 ML IV NR ×2 (13:00)
[2020-10-22 13:16] LABS: CALCIUM 8.1 MG/DL (8.5-10.1); CREATININE SERUM 1.39 MG/DL (0.60-1.30); POTASSIUM 3.7 MMOL/L (3.6-5.0)
[2020-10-22] MEDS ORDERED: PHENYLEPHRINE 100 MCG/ML 10 ML (ANESTHESIA) SYR ONE (13:47)
[2020-10-22] MEDS: ENOXAPARIN 40 MG/0.4 ML (LOVENOX) SYR SC SCH (15:00)
[2020-10-22] MEDS ORDERED: HYDROmorphone PF INJECTION 40 MG in NS (IVPB) 96 ML IV SCH (15:00)
[2020-10-22] MEDS: LACTATED RINGERS 1,000 ML IV PRN (15:08)
--- NOTE | 2020-10-22 15:14 | Progress Note-Post Operative ---
Post-Operative Progess Note Surgeon (s)/Masonry Installer (s) Surgeon NAKUL YUEN MD Masonry Installer: Chivo Schmid FLIGHT COMMUNICATIONS OFFICER Pre-Operative Diagnosis peritonitis s/p lap yelena, EGD, colo with polypectomy Post-Operative Diagnosis distended stomach, small bowel and colon, small amount clotted blood, no GI injury/leak identified. Procedure & Operative Findings Date of Procedure 10/22/20 Procedure Performed/Findings diagnostic laparoscopy. EGD with guided placement NGT. Anesthesia Type get Estimated Blood Loss Estimated blood loss (mL): minimal Specimens/Packing Specimens Removed none NAKUL YUEN MD Oct 22, 2020 15:14
[2020-10-22] MEDS ORDERED: DEXTROSE 50% 50 ML (IMS) SYR ONE (15:15)
[2020-10-22] MEDS ORDERED: DEXTROSE 50% 50 ML (IMS) SYR IV ONE (15:30)
[2020-10-22] MEDS ORDERED: HYDROmorphone PF INJECTION 20 MG in NS (IVPB) 100 ML IV PRN (15:30)
[2020-10-22] MEDS ORDERED: TPN IV SCH (15:30)
--- NOTE | 2020-10-22 15:56 | OPERATIVE REPORT ---
DATE OF SERVICE: 10/22/2020 ATTENDING PRIMARY CARE PHYSICIAN: Dr. Phillip Sanchez. PREOPERATIVE DIAGNOSES: Peritonitis, leukocytosis, status post laparoscopic cholecystectomy, EGD with biopsy and colonoscopy with polypectomy. PROCEDURES: Diagnostic laparoscopy, placement of intraperitoneal drain, EGD with guided placement of nasogastric tube. SURGEON: Benedict Haynes MD CLAIMS MANAGER: Chivo Schmid APRN ANESTHESIA: General endotracheal. ESTIMATED BLOOD LOSS: Minimal. FINDINGS: Old clotted blood within the peritoneal cavity. There was a distended stomach, small bowel and colon. There was no turbid fluid or any purulence nor any inflammation to indicate gastrointestinal injury or leak. DISPOSITION: The patient tolerated the procedure well. INDICATIONS: The patient is a 60-year-old female who was referred over to us for upper quadrant abdominal pain, reflux, nausea, vomiting, weight loss and dehydration. She was also in need of a screening colonoscopy with first-degree relative with a family history of colon cancer. During her workup, she underwent a gallbladder ultrasound, which was negative. She then underwent a HIDA scan, which did show a low ejection fraction 24.8% and this also did elicit nausea and vomiting consistent with symptomatic biliary dyskinesia. She also does have a history of gastroesophageal reflux disease and has intermittent episodes of epigastric burning sensation. She is also in need of a screening colonoscopy for she does have a first-degree family history of colon cancer with her brother having the disease. The following day, she developed significant abdominal pain and peritonitis and also was found to have leukocytosis with a white count of 32,000. Her hemoglobin and hematocrit were stable. She also did have a significantly elevated blood glucose throughout her postoperative course as well as a slightly elevated lactic acid. Due to her symptomatology and leukocytosis as well as the multitude of the procedures performed, it was decided to proceed with a diagnostic laparoscopy. DESCRIPTION OF PROCEDURE: The abdomen was prepped and draped in standard surgical fashion. A 1% lidocaine with epinephrine was used to anesthetize overlying skin in the previous supraumbilical incision and the wound opened using hemostat and the Veress needle inserted with a low opening pressure of 0 mmHg and the abdomen was insufflated to 15 mmHg pressure. The Veress needle removed and a 10 mm XL trocar placed followed by a 10 mm 45-degree angle laparoscope visualizing the peritoneal cavity. This was followed by placement of a 5mm port in the left upper quadrant thru the previous incision. We then proceeded with systematic visualization of all 4 quadrants of the abdomen. There was clotted blood identified. Mild amount of clotted blood in the left upper abdominal quadrant as well as in the gallbladder fossa. There was no active bleeding. There was distended stomach, small bowel as well as colon. There was no free fluid as well as no turbid fluid as well as no purulence identified. There was also no inflammatory changes or any mesenteric fat creeping to indicate an inflammatory or infectious process. It was then decided to proceed with a nasogastric tube decompression; however, the nasogastric tube would coil under multiple attempts. We then proceeded with EGD as well as guided placement of a nasogastric tube. The mouthpiece was applied and the endoscope was placed in the mouth, visualizing the pharynx and hypopharyngeal region. The endoscope was then gently intubated the esophageal opening where the nasogastric tube was found curled in the esophagus. This was then looped with a wire loop and directed into the antrum of the stomach under direct visualization. The stomach was distended with air as well as liquids. The endoscope was then slowly withdrawn while taking a second look and suctioning of residual air with no additional findings. We then proceeded with desufflation of the abdomen and closure of the 10 mm port site under direct visualization using a 0 Vicryl suture on a UR needle. Before this, a 19-Filipino Win-German drain was placed into the peritoneal cavity and pulled out through the 5 mm port site. This was then sutured to the skin using 3-0 nylon interrupted suture. Skin was then closed using 4-0 Monocryl subcuticular suture. Wound was then cleaned and covered with Dermabond. The patient tolerated the procedure well. We will continue with NG tube decompression and bowel rest as well as ICU monitoring and continued monitoring of labs. We will continue to monitor for any intraperitoneal drainage as well as physical examinations. Job ID: [id number] DocumentID: [id number] Dictated Date: 10/22/2020 15:22:34 Bending Press Operator Date: 10/22/2020 15:55:27 Dictated By: BENEDICT AHYNES MD [facility] CAMPUSBelkys
[2020-10-22] MEDS ORDERED: morphine INJ 10 MG/ML 1ML (SYR OR VIAL) IVP ONE (16:00)
[2020-10-22] MEDS ORDERED: ONDANSETRON 4 MG/2 ML (SDV) Z0FRAN IVP PRN (16:00)
[2020-10-22] MEDS ORDERED: MEPERIDINE (DEMEROL) INJ 50 MG/ML IVP ONE (16:00)
[2020-10-22] MEDS: AA 4.25% W/LYTES IN D5W IV SOL 1,000 ML IV SCH (16:48)
[2020-10-22] MEDS: PIPERACILLIN/TAZOBACTAM (BULK) 4.5 GM in NS (IVPB) 100 ML IV SCH (18:31)
[2020-10-22] MEDS: MONTELUKAST 10 MG (SINGULAIR) TAB PO SCH (20:56)
[2020-10-22] MEDS: GABAPENTIN 100 MG (NEURONTIN) CAP PO SCH (20:56)
[2020-10-22] MEDS: PANTOPRAZOLE 40 MG (PROTONIX) VIAL IV SCH (20:58)
[2020-10-22 21:18] LABS: BASOPHILS # (AUTO) 0.1 10^3/uL (0.0-0.1); BASOPHILS % (AUTO) 0 % (0-10); EOSINOPHILS # (AUTO) 0.1 10^3/uL (0.0-0.3); EOSINOPHILS % (AUTO) 0 % (0-10); HEMATOCRIT 34 % (35-52); HEMOGLOBIN 10.8 g/dL (11.5-16.0); LYMPHOCYTES # (AUTO) 1.3 10^3/uL (1.0-4.0); LYMPHOCYTES % (AUTO) 6 % (12-44); MEAN CORPUSCULAR HEMOGLOBIN 30 pg (25-34); MEAN CORPUSCULAR HGB CONC 31 g/dL (32-36); MEAN CORPUSCULAR VOLUME 94 fL (80-99); MEAN PLATELET VOLUME 9.8 fL (9.0-12.2); MONOCYTES # (AUTO) 1.5 10^3/uL (0.0-1.0); MONOCYTES % (AUTO) 7 % (0-12); NEUTROPHILS # (AUTO) 19.7 10^3/uL (1.8-7.8); NEUTROPHILS % (AUTO) 87 % (42-75); PLATELET COUNT 300 10^3/uL (130-400); WHITE BLOOD COUNT 22.8 10^3/uL (4.3-11.0)
[2020-10-23] VITALS (15 sets, daily range): BP systolic 116–173; BP diastolic 55–77
[2020-10-23] MEDS: PIPERACILLIN/TAZOBACTAM (BULK) 4.5 GM in NS (IVPB) 100 ML IV SCH ×3 (03:32→19:38)
[2020-10-23 03:49] LABS: BASOPHILS # (AUTO) 0.1 10^3/uL (0.0-0.1); BASOPHILS % (AUTO) 1 % (0-10); EOSINOPHILS # (AUTO) 0.2 10^3/uL (0.0-0.3); EOSINOPHILS % (AUTO) 1 % (0-10); HEMATOCRIT 37 % (35-52); HEMOGLOBIN 11.5 g/dL (11.5-16.0); LYMPHOCYTES # (AUTO) 1.1 10^3/uL (1.0-4.0); LYMPHOCYTES % (AUTO) 5 % (12-44); MEAN CORPUSCULAR HEMOGLOBIN 29 pg (25-34); MEAN CORPUSCULAR HGB CONC 31 g/dL (32-36); MEAN CORPUSCULAR VOLUME 94 fL (80-99); MEAN PLATELET VOLUME 9.9 fL (9.0-12.2); MONOCYTES # (AUTO) 1.5 10^3/uL (0.0-1.0); MONOCYTES % (AUTO) 6 % (0-12); NEUTROPHILS # (AUTO) 20.1 10^3/uL (1.8-7.8); NEUTROPHILS % (AUTO) 87 % (42-75); PLATELET COUNT 310 10^3/uL (130-400); WHITE BLOOD COUNT 23.1 10^3/uL (4.3-11.0)
[2020-10-23 04:01] LABS: ALBUMIN 2.9 GM/DL (3.2-4.5); POTASSIUM 4.9 MMOL/L (3.6-5.0)
[2020-10-23 04:02] LABS: CALCIUM 7.4 MG/DL (8.5-10.1)
[2020-10-23 04:03] LABS: TOTAL PROTEIN 5.6 GM/DL (6.4-8.2)
[2020-10-23 04:04] LABS: INR 0.9 (0.8-1.4); PROTHROMBIN TIME PATIENT 12.6 SEC (12.2-14.7)
[2020-10-23 04:05] LABS: BILIRUBIN,TOTAL 0.7 MG/DL (0.1-1.0)
[2020-10-23 04:07] LABS: CREATININE SERUM 1.55 MG/DL (0.60-1.30); PHOSPHORUS 4.3 MG/DL (2.3-4.7)
[2020-10-23 04:10] LABS: MAGNESIUM 2.5 MG/DL (1.6-2.4)
[2020-10-23] MEDS: inSUlin ASPART (NovoLOG) 1 UNIT/0.01 ML (CHARGE PER UNIT) SC SCH ×3 (06:04→18:15)
[2020-10-23] MEDS: AA 4.25% W/LYTES IN D5W IV SOL 1,000 ML IV SCH ×2 (07:13→13:18)
--- NOTE | 2020-10-23 08:10 | Diagnostic Imaging Report ---
INDICATION: Postop for pneumoperitoneum. Leukocytosis. FINDINGS: Nasogastric tube is in place. There is a drainage catheter in place. Bowel gas pattern is nonspecific. There are surgical clips in the right upper quadrant. There are no unexpected postoperative foreign bodies. IMPRESSION: No unexpected postoperative foreign bodies. Dictated by: Dictated on workstation # [id number]
--- NOTE | 2020-10-23 08:13 | Diagnostic Imaging Report ---
INDICATION: Pneumoperitoneum and leukocytosis. Comparison made with prior examination from 10/21/2020 FINDINGS: There is cardiomegaly. There are bilateral perihilar infiltrates. There is no pleural effusion or pneumothorax. Nasogastric tube is in place. Mediastinum is unremarkable. There has been a previous median sternotomy and coronary bypass graft. Infuse-Port Catheter overlies left hemithorax has tip in superior vena cava. IMPRESSION: Bilateral perihilar infiltrates left greater than right. There is also left basal infiltrate. There may be some mild venous congestion. Dictated by: Dictated on workstation # [id number]
[2020-10-23] MEDS: PANTOPRAZOLE 40 MG (PROTONIX) VIAL IV SCH ×2 (08:32→20:40)
--- NOTE | 2020-10-23 10:58 | Progress Note ---
Subjective Date Seen by a Provider: Oct 23, 2020 Time Seen by a Provider: 10:30 Subjective/Events-last exam doing well. pain controlled. no fever/chills. no bowel fxn. Focused Exam Lactate Level 10/22/20 12:50: Lactic Acid Level 2.75*H 10/22/20 17:38: Lactic Acid Level 2.42*H 10/22/20 21:10: Lactic Acid Level 1.38 Objective Exam Vital Signs Date Time Temp Pulse Resp B/P (MAP) Pulse Ox O2 Delivery O2 Flow Rate FiO2 10/23/20 10:09 93 Nasal Cannula 1.00 10/23/20 10:00 89 13 138/64 (88) 90 Room Air 10/23/20 09:15 92 Room Air 10/23/20 09:00 95 13 120/67 (84) 94 Nasal Cannula 2.00 10/23/20 08:00 95 13 141/64 (89) 94 Nasal Cannula 2.00 10/23/20 07:17 36.8 10/23/20 07:16 95 Nasal Cannula 1.00 10/23/20 07:00 96 10/23/20 07:00 96 11 129/63 (85) 95 Nasal Cannula 2.00 10/23/20 06:00 98 12 135/65 (88) 96 Nasal Cannula 2.00 10/23/20 05:00 99 12 126/67 (86) 96 Nasal Cannula 2.00 10/23/20 04:00 97 16 127/56 (79) 96 Nasal Cannula 2.00 10/23/20 04:00 37.0 10/23/20 04:00 97 Nasal Cannula 2.00 10/23/20 03:00 98 13 135/65 (88) 96 Nasal Cannula 2.00 10/23/20 02:00 96 12 130/69 (89) 96 Nasal Cannula 2.00 10/23/20 01:00 98 12 116/55 (75) 95 Nasal Cannula 2.00 10/23/20 01:00 99 10/23/20 00:00 97 Nasal Cannula 2.00 10/23/20 00:00 98 12 139/66 (90) 95 Nasal Cannula 2.00 10/22/20 23:00 100 14 107/59 (75) 97 Nasal Cannula 2.00 10/22/20 22:00 91 12 159/68 (98) 96 Nasal Cannula 2.00 10/22/20 21:40 93 Nasal Cannula 2.00 10/22/20 21:10 Nasal Cannula 2.00 10/22/20 21:00 93 13 128/69 (88) 92 Nasal Cannula 2.00 10/22/20 20:00 93 12 101/48 (65) 90 Nasal Cannula 2.00 10/22/20 20:00 97 Nasal Cannula 2.00 10/22/20 19:30 37.3 10/22/20 19:00 96 10/22/20 19:00 96 12 112/53 (72) 92 Nasal Cannula 2.00 10/22/20 18:00 98 9 131/63 (85) 90 Room Air 10/22/20 17:45 99 10/22/20 17:00 93 151/70 (97) 96 Room Air 10/22/20 16:20 Nasal Cannula 2.00 10/22/20 16:15 87 124/60 (81) 93 Room Air 10/22/20 16:05 Room Air 10/22/20 16:05 36.5 20 130/74 (92) 93 Room Air 10/22/20 16:00 Room Air 10/22/20 16:00 20 132/68 (89) 93 Room Air 10/22/20 15:50 18 131/64 (86) 97 Room Air 10/22/20 15:46 OxyMask 2 10/22/20 15:40 18 136/57 (83) 98 OxyMask 6 10/22/20 15:40 OxyMask 6 10/22/20 15:30 20 132/64 (86) 100 OxyMask 6 10/22/20 15:25 OxyMask 6 10/22/20 15:20 20 133/64 (87) 100 OxyMask 6 10/22/20 15:11 T Piece 10 10/22/20 15:11 36.3 21 143/66 (91) 100 T Piece 10 10/22/20 11:25 36.0 87 20 208/103 (138) 96 Room Air I & O 10/23/20 07:00 Intake Total 1315 ml Output Total 2050 ml Balance -735 ml Capillary Refill : General Appearance: No Apparent Distress HEENT: PERRL/EOMI Neck: Full Range of Motion Respiratory: Chest Non Tender, Wheezing Cardiovascular: Regular Rate, Rhythm Gastrointestinal: soft, tenderness Extremity: Normal Capillary Refill Neurologic/Psychiatric: Alert, Oriented x3 Skin: Normal Color Lymphatic: No Adenopathy Results Lab Laboratory Tests 10/22/20 11:50: Glucometer 98 10/22/20 11:51: White Blood Count 32.2*H, Red Blood Count 4.47, Hemoglobin 13.2, Hematocrit 42, Mean Corpuscular Volume 94, Mean Corpuscular Hemoglobin 30, Mean Corpuscular Hemoglobin Concent 32, Red Cell Distribution Width 13.9, Platelet Count 371, Mean Platelet Volume 9.9, Immature Granulocyte % (Auto) 1, Neutrophils (%) (Auto) 87H, Lymphocytes (%) (Auto) 7L, Monocytes (%) (Auto) 6, Eosinophils (%) (Auto) 0, Basophils (%) (Auto) 1, Neutrophils # (Auto) 27.8H, Lymphocytes # (Auto) 2.2, Monocytes # (Auto) 1.8H, Eosinophils # (Auto) 0.0, Basophils # (Auto) 0.2H, Immature Granulocyte # (Auto) 0.2H, Neutrophils % (Manual) 86, Lymphocytes % (Manual) 9, Monocytes % (Manual) 5, Eosinophils % (Manual) 0, Basophils % (Manual) 0, Band Neutrophils 0, Blood Morphology Comment NORMAL 10/22/20 12:50: Sodium Level 135, Potassium Level 3.7, Chloride Level 98, Carbon Dioxide Level 23, Anion Gap 14, Blood Urea Nitrogen 27H, Creatinine 1.39H, Estimat Glomerular Filtration Rate 39, BUN/Creatinine Ratio 19, Glucose Level 56*L, Lactic Acid Level 2.75*H, Calcium Level 8.1L, Procalcitonin 0.40H 10/22/20 15:20: Glucometer 49*L 10/22/20 15:59: Glucometer 99 10/22/20 16:33: Glucometer 95 10/22/20 17:38: Lactic Acid Level 2.42*H 10/22/20 20:56: Glucometer 319H 10/22/20 21:10: White Blood Count 22.8H, Red Blood Count 3.65L, Hemoglobin 10.8L, Hematocrit 34L , Mean Corpuscular Volume 94, Mean Corpuscular Hemoglobin 30, Mean Corpuscular Hemoglobin Concent 31L, Red Cell Distribution Width 14.1, Platelet Count 300, Mean Platelet Volume 9.8, Immature Granulocyte % (Auto) 0, Neutrophils (%) (Auto) 87H, Lymphocytes (%) (Auto) 6L, Monocytes (%) (Auto) 7, Eosinophils (%) (Auto) 0, Basophils (%) (Auto) 0, Neutrophils # (Auto) 19.7H, Lymphocytes # (Auto) 1.3, Monocytes # (Auto) 1.5H, Eosinophils # (Auto) 0.1, Basophils # (Auto) 0.1, Immature Granulocyte # (Auto) 0.1, Lactic Acid Level 1.38 10/23/20 03:40: White Blood Count 23.1H, Red Blood Count 3.93, Hemoglobin 11.5, Hematocrit 37, Mean Corpuscular Volume 94, Mean Corpuscular Hemoglobin 29, Mean Corpuscular Hemoglobin Concent 31L, Red Cell Distribution Width 14.1, Platelet Count 310, Mean Platelet Volume 9.9, Immature Granulocyte % (Auto) 1, Neutrophils (%) (Auto) 87H, Lymphocytes (%) (Auto) 5L, Monocytes (%) (Auto) 6, Eosinophils (%) (Auto) 1, Basophils (%) (Auto) 1, Neutrophils # (Auto) 20.1H, Lymphocytes # (Auto) 1.1, Monocytes # (Auto) 1.5H, Eosinophils # (Auto) 0.2, Basophils # (Auto) 0.1, Immature Granulocyte # (Auto) 0.2H, Prothrombin Time 12.6, INR Comment 0.9, Sodium Level 134L, Potassium Level 4.9, Chloride Level 96L, Carbon Dioxide Level 25, Anion Gap 13, Blood Urea Nitrogen 33H, Creatinine 1.55H, Estimat Glomerular Filtration Rate 34, BUN/Creatinine Ratio 21, Glucose Level 366H, Calcium Level 7.4L, Corrected Calcium 8.3L, Phosphorus Level 4.3, Magnesium Level 2.5H, Total Bilirubin 0.7, Aspartate Amino Transf (AST/SGOT) 308H, Alanine Aminotransferase (ALT/SGPT) 144H, Alkaline Phosphatase 222H, Total Protein 5.6L, Albumin 2.9L, Triglycerides Level 113, Procalcitonin 0.73H Microbiology 10/21/20 MRSA Screen - Final, Complete MRSA not isolated Assessment/Plan Assessment/Plan Assess & Plan/Chief Complaint s/p lap yelena, groshong, EGD, colonoscopy with hyperglycemia. IM consulted. increase ambulation and IS. keep ngt tube in for now and await bowel fxn. NAKUL YUEN MD Oct 23, 2020 10:58
[2020-10-23] MEDS: NS IV 1000 ML 1,000 ML IV SCH (11:26)
[2020-10-23] MEDS ORDERED: CHLORASEPTIC SPRAY 177 ML LIQUID MC PRN (12:45)
--- NOTE | 2020-10-23 13:13 | Progress Note - Hospitalist ---
Subjective HPI/CC On Admission Date Seen by Provider: Oct 23, 2020 Time Seen by Provider: 09:25 Jessica Yates is a 60-year-old female with past medical history of type 1 diabetes mellitus on insulin, chronic kidney disease stage III, who presented for a scheduled laparoscopic cholecystectomy due to biliary dyskinesia. She is now postop day 1. She is having severe abdominal pain. She reports nausea but no vomiting. She has not been able to eat. She denies fevers and chills. She denies chest pain and shortness of breath. She has no other complaints or concerns. Subjective/Events-last exam She is feeling a little bit better this morning. She is still having bad abdominal pain. She denies fevers or chills. She denies shortness of breath or cough. She denies chest pain. She reports that she is passing gas. She has not had a bowel movement. She is not having any nausea or vomiting. Focused Exam Lactate Level 10/22/20 12:50: Lactic Acid Level 2.75*H 10/22/20 17:38: Lactic Acid Level 2.42*H 10/22/20 21:10: Lactic Acid Level 1.38 Objective Exam Vital Signs Vital Signs Date Time Temp Pulse Resp B/P (MAP) Pulse Ox O2 Delivery O2 Flow Rate FiO2 10/23/20 12:26 95 10/23/20 12:00 17 156/71 (99) 96 Nasal Cannula 1.00 10/23/20 11:13 36.6 Capillary Refill : General Appearance: No Apparent Distress, Thin Respiratory: Lungs Clear, Normal Breath Sounds, No Respiratory Distress Cardiovascular: Regular Rate, Rhythm, No Edema, No Murmur Gastrointestinal: Abnormal Bowel Sounds (Hypoactive), Guarding, Tenderness Extremity: Normal Inspection, Non Tender, No Pedal Edema Neurologic/Psychiatric: Alert, Oriented x3, Other (Appears uncomfortable) Skin: Normal Color, Warm/Dry Results/Procedures Lab Laboratory Tests 10/22/20 21:10 10/23/20 03:40 Patient resulted labs reviewed. Imaging: Reviewed Imaging Report Assessment/Plan Assessment and Plan Assess & Plan/Chief Complaint Acute postoperative abdominal pain s/p laparoscopic cholecystectomy Biliary dyskinesia Sepsis Chronic kidney disease 3 POD #2 lap yelena, POD #1 exploratory laparoscopy No evidence of leak or perforation on second look surgery Surgery primary, Dr. Haynes WBC trending down Chest xray with left basilar infiltrate Procalcitonin elevated LFTs trending up Continue Zosyn Started on TPN T1DM with hyperglycemia Increase Levemir Sliding scale insulin DVT prophylaxis: Lovenox Hyperkalemia, resolved Diagnosis/Problems Diagnosis/Problems (1) Acute postoperative pain of abdomen Status: Acute (2) S/P laparoscopic cholecystectomy Status: Acute (3) Biliary dyskinesia Status: Acute (4) T1DM (type 1 diabetes mellitus) Status: Acute Qualifiers: Diabetes mellitus complication status: with hyperglycemia Qualified Codes: E10.65 - Type 1 diabetes mellitus with hyperglycemia (5) Hyperkalemia Status: Resolved Resolution Date/Time: 10/23/20 @ 13:13 (6) CKD (chronic kidney disease) stage 3, GFR 30-59 ml/min Status: Chronic Qualifiers: Chronic kidney disease stage 3 subtype: stage 3b (GFR 30-44) Qualified Codes: N18.32 - Chronic kidney disease, stage 3b ANGELO ELLIS MD Oct 23, 2020 13:13
[2020-10-23] MEDS: ENOXAPARIN 40 MG/0.4 ML (LOVENOX) SYR SC SCH (14:27)
--- NOTE | 2020-10-23 14:56 | Anesthesia-General Post-Op ---
General Patient Condition Mental Status/LOC: Same as Preop Cardiovascular: Satisfactory Nausea/Vomiting: Absent Respiratory: Satisfactory Pain: Controlled Complications: Absent Post Op Complications Complications None Follow Up Care/Instructions Patient Instructions None needed. Anesthesia/Patient Condition Patient Condition Patient is doing well, no complaints, stable vital signs, no apparent adverse anesthesia problems. No complications reported per nursing. MOISES NATARAJAN CRNA Oct 23, 2020 14:56
[2020-10-23] MEDS ORDERED: DEXTROSE 50% 50 ML (IMS) SYR IV ONE (18:15)
[2020-10-23] MEDS ORDERED: DEXTROSE 50% 50 ML (IMS) SYR ONE (23:49)
[2020-10-24] VITALS (7 sets, daily range): BP systolic 105–196; BP diastolic 57–84
[2020-10-24] MEDS ORDERED: DEXTROSE 50% 50 ML (IMS) SYR IV ONE
[2020-10-24] MEDS: inSUlin ASPART (NovoLOG) 1 UNIT/0.01 ML (CHARGE PER UNIT) SC SCH ×5 (00:57→20:38)
[2020-10-24] MEDS: PIPERACILLIN/TAZOBACTAM (BULK) 4.5 GM in NS (IVPB) 100 ML IV SCH ×3 (02:20→18:22)
[2020-10-24] MEDS: AA 4.25% W/LYTES IN D5W IV SOL 1,000 ML IV SCH (04:49)
[2020-10-24 05:17] LABS: BASOPHILS # (AUTO) 0.1 10^3/uL (0.0-0.1); BASOPHILS % (AUTO) 0 % (0-10); EOSINOPHILS # (AUTO) 0.5 10^3/uL (0.0-0.3); EOSINOPHILS % (AUTO) 3 % (0-10); HEMATOCRIT 37 % (35-52); HEMOGLOBIN 11.4 g/dL (11.5-16.0); LYMPHOCYTES # (AUTO) 1.6 10^3/uL (1.0-4.0); LYMPHOCYTES % (AUTO) 9 % (12-44); MEAN CORPUSCULAR HEMOGLOBIN 30 pg (25-34); MEAN CORPUSCULAR HGB CONC 31 g/dL (32-36); MEAN CORPUSCULAR VOLUME 95 fL (80-99); MONOCYTES % (AUTO) 5 % (0-12); NEUTROPHILS # (AUTO) 15.6 10^3/uL (1.8-7.8); NEUTROPHILS % (AUTO) 83 % (42-75); PLATELET COUNT 260 10^3/uL (130-400); WHITE BLOOD COUNT 18.9 10^3/uL (4.3-11.0)
[2020-10-24 05:21] LABS: ALBUMIN 2.6 GM/DL (3.2-4.5); POTASSIUM 4.4 MMOL/L (3.6-5.0)
[2020-10-24 05:23] LABS: CALCIUM 7.7 MG/DL (8.5-10.1)
[2020-10-24 05:24] LABS: TOTAL PROTEIN 5.5 GM/DL (6.4-8.2)
[2020-10-24 05:26] LABS: BILIRUBIN,TOTAL 0.5 MG/DL (0.1-1.0)
[2020-10-24 05:27] LABS: PHOSPHORUS 3.2 MG/DL (2.3-4.7)
[2020-10-24 05:28] LABS: CREATININE SERUM 1.21 MG/DL (0.60-1.30)
[2020-10-24 05:31] LABS: MAGNESIUM 2.4 MG/DL (1.6-2.4)
[2020-10-24] MEDS: PANTOPRAZOLE 40 MG (PROTONIX) VIAL IV SCH ×2 (09:28→19:28)
--- NOTE | 2020-10-24 10:17 | Progress Note ---
Subjective Date Seen by a Provider: Oct 24, 2020 Time Seen by a Provider: 09:20 Subjective/Events-last exam Patient seen with Dr. Haynes. Patient reports that she is passing flatus. Abdominal pain improving, but still present. Denies any nausea or vomiting. Focused Exam Lactate Level 10/22/20 12:50: Lactic Acid Level 2.75*H 10/22/20 17:38: Lactic Acid Level 2.42*H 10/22/20 21:10: Lactic Acid Level 1.38 Objective Exam Vital Signs Date Time Temp Pulse Resp B/P (MAP) Pulse Ox O2 Delivery O2 Flow Rate FiO2 10/24/20 08:00 36.8 81 20 187/81 (116) 94 Room Air 10/24/20 04:00 36.1 64 16 196/84 (121) 98 Nasal Cannula 2.00 10/24/20 00:00 36.9 82 16 171/73 (105) 99 Nasal Cannula 2.00 10/23/20 20:00 36.9 88 16 121/68 (85) 97 Nasal Cannula 2.00 10/23/20 20:00 Nasal Cannula 2.00 10/23/20 16:03 Nasal Cannula 1.00 10/23/20 16:00 36.9 88 16 173/77 (109) 95 Nasal Cannula 1.00 10/23/20 12:26 95 10/23/20 12:00 90 17 156/71 (99) 96 Nasal Cannula 1.00 10/23/20 11:13 36.6 10/23/20 11:00 89 12 157/75 (102) 95 Nasal Cannula 1.00 I & O 10/24/20 07:00 Intake Total 2470 ml Output Total 1910 ml Balance 560 ml Capillary Refill : General Appearance: WD/WN, Mild Distress Neck: Normal Inspection, Supple Respiratory: No Accessory Muscle Use, No Respiratory Distress Cardiovascular: Regular Rate, Rhythm, No Edema Gastrointestinal: soft, tenderness (Diffuse upon mild palpation), other (ABEBE with minimal clear SS drainage) Extremity: Normal Inspection, Normal Range of Motion Neurologic/Psychiatric: Alert, Oriented x3 Skin: Normal Color, Warm/Dry, Other (Abdominal incisions C/D/I) Results Lab Laboratory Tests 10/23/20 11:12: Glucometer 349H 10/23/20 17:59: Glucometer 41*L 10/23/20 18:34: Glucometer 133H 10/23/20 23:44: Glucometer 46*L 10/24/20 00:07: Glucometer 151H 10/24/20 00:12: Glucometer 149H 10/24/20 05:05: White Blood Count 18.9H, Red Blood Count 3.83, Hemoglobin 11.4L, Hematocrit 37, Mean Corpuscular Volume 95, Mean Corpuscular Hemoglobin 30, Mean Corpuscular Hemoglobin Concent 31L, Red Cell Distribution Width 14.1, Platelet Count 260, Mean Platelet Volume 10.0, Immature Granulocyte % (Auto) 1, Neutrophils (%) (Auto) 83H, Lymphocytes (%) (Auto) 9L, Monocytes (%) (Auto) 5, Eosinophils (%) (Auto) 3, Basophils (%) (Auto) 0, Neutrophils # (Auto) 15.6H, Lymphocytes # (Auto) 1.6, Monocytes # (Auto) 1.0, Eosinophils # (Auto) 0.5H, Basophils # (Auto) 0.1, Immature Granulocyte # (Auto) 0.1, Sodium Level 139, Potassium Level 4.4, Chloride Level 102, Carbon Dioxide Level 27, Anion Gap 10, Blood Urea Nitrogen 29H, Creatinine 1.21, Estimat Glomerular Filtration Rate 46, BUN/Crea tinine Ratio 24, Glucose Level 131H, Calcium Level 7.7L, Corrected Calcium 8.8, Phosphorus Level 3.2, Magnesium Level 2.4, Total Bilirubin 0.5, Aspartate Amino Transf (AST/SGOT) 76H, Alanine Aminotransferase (ALT/SGPT) 79H, Alkaline Phosphatase 199H, Total Protein 5.5L, Albumin 2.6L, Triglycerides Level 102 Microbiology 10/21/20 MRSA Screen - Final, Complete MRSA not isolated Assessment/Plan Assessment/Plan Assess & Plan/Chief Complaint s/p lap yelena, groshong, EGD, colonoscopy with hyperglycemia. VSS WBC trending down to 18.9 IM consulted. increase ambulation and IS. DC NGT Start Clear liquid diet and oral pain meds Continue pain, nausea, and abx medications KAYLA RUBI APRN Oct 24, 2020 10:17
[2020-10-24] MEDS: NS IV 1000 ML 1,000 ML IV SCH (10:37)
--- NOTE | 2020-10-24 12:13 | Progress Note - Hospitalist ---
Subjective HPI/CC On Admission Date Seen by Provider: Oct 24, 2020 Time Seen by Provider: 10:25 Jessica Yates is a 60-year-old female with past medical history of type 1 diabetes mellitus on insulin, chronic kidney disease stage III, who presented for a scheduled laparoscopic cholecystectomy due to biliary dyskinesia. She is now postop day 1. She is having severe abdominal pain. She reports nausea but no vomiting. She has not been able to eat. She denies fevers and chills. She denies chest pain and shortness of breath. She has no other complaints or concerns. Subjective/Events-last exam She is still having significant abdominal pain. She is on a pain pump. She denies fevers or chills. She denies nausea and vomiting. She has not had any bowel movements. She reports that she is passing gas. Focused Exam Lactate Level 10/22/20 12:50: Lactic Acid Level 2.75*H 10/22/20 17:38: Lactic Acid Level 2.42*H 10/22/20 21:10: Lactic Acid Level 1.38 Objective Exam Vital Signs Vital Signs Date Time Temp Pulse Resp B/P (MAP) Pulse Ox O2 Delivery O2 Flow Rate FiO2 10/24/20 12:00 36.1 155 20 126/67 (86) 93 Nasal Cannula 2.00 Capillary Refill : General Appearance: Mild Distress (Uncomfortable), Thin Respiratory: Lungs Clear, Normal Breath Sounds, No Respiratory Distress Cardiovascular: Tachycardia (Regular rhythm) Gastrointestinal: Abnormal Bowel Sounds (Hypoactive); No Distended; Guarding, Tenderness Extremity: Normal Inspection, Non Tender, No Pedal Edema Neurologic/Psychiatric: Alert, Oriented x3, No Motor/Sensory Deficits Skin: Normal Color, Warm/Dry Results/Procedures Lab Laboratory Tests 10/24/20 05:05 Patient resulted labs reviewed. Imaging: Reviewed Imaging Report Assessment/Plan Assessment and Plan Assess & Plan/Chief Complaint Acute postoperative abdominal pain s/p laparoscopic cholecystectomy Biliary dyskinesia Severe sepsis Lactic acidosis Acute kidney injury superimposed on chronic kidney disease 3 Elevated LFTs POD #3 lap yelena, POD #2 exploratory laparoscopy No evidence of leak or perforation on second look surgery Surgery primary, Dr. 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 T1DM with hyperglycemia Decreased Levemir Sliding scale insulin DVT prophylaxis: Lovenox Hyperkalemia, resolved Diagnosis/Problems Diagnosis/Problems (1) Acute postoperative pain of abdomen Status: Acute (2) S/P laparoscopic cholecystectomy Status: Acute (3) Biliary dyskinesia Status: Acute (4) T1DM (type 1 diabetes mellitus) Status: Acute Qualifiers: Diabetes mellitus complication status: with hyperglycemia Qualified Codes: E10.65 - Type 1 diabetes mellitus with hyperglycemia (5) Hyperkalemia Status: Resolved Resolution Date/Time: 10/23/20 @ 13:13 (6) CKD (chronic kidney disease) stage 3, GFR 30-59 ml/min Status: Chronic Qualifiers: Chronic kidney disease stage 3 subtype: stage 3b (GFR 30-44) Qualified Codes: N18.32 - Chronic kidney disease, stage 3b (7) Severe sepsis Status: Acute (8) Lactic acidosis Status: Acute (9) Acute kidney injury superimposed on chronic kidney disease Status: Acute (10) Elevated LFTs Status: Acute ANGELO ELLIS MD Oct 24, 2020 12:13
[2020-10-24] MEDS: ENOXAPARIN 40 MG/0.4 ML (LOVENOX) SYR SC SCH (15:19)
[2020-10-24] MEDS: oxyCODONE/APAP 5/325MG (PERCOCET 5) TABLET PO PRN ×2 (15:27→23:06)
[2020-10-24] MEDS ORDERED: inSUlin ASPART (NovoLOG) 1 UNIT/0.01 ML (CHARGE PER UNIT) ONE (16:01)
[2020-10-25] MEDS: oxyCODONE/APAP 5/325MG (PERCOCET 5) TABLET PO PRN ×3 (03:14→23:07)
[2020-10-25] MEDS: PIPERACILLIN/TAZOBACTAM (BULK) 4.5 GM in NS (IVPB) 100 ML IV SCH ×3 (03:14→19:21)
[2020-10-25] MEDS: inSUlin ASPART (NovoLOG) 1 UNIT/0.01 ML (CHARGE PER UNIT) SC SCH ×4 (03:49→21:20)
[2020-10-25 03:50] VITALS: BP 184/80
[2020-10-25 06:07] LABS: ALBUMIN 2.6 GM/DL (3.2-4.5); POTASSIUM 4.4 MMOL/L (3.6-5.0)
[2020-10-25 06:08] LABS: CALCIUM 7.6 MG/DL (8.5-10.1)
[2020-10-25 06:10] LABS: TOTAL PROTEIN 5.7 GM/DL (6.4-8.2)
[2020-10-25 06:11] LABS: BILIRUBIN,TOTAL 0.9 MG/DL (0.1-1.0)
[2020-10-25 06:13] LABS: CREATININE SERUM 1.32 MG/DL (0.60-1.30); PHOSPHORUS 3.2 MG/DL (2.3-4.7)
[2020-10-25 06:16] LABS: MAGNESIUM 2.3 MG/DL (1.6-2.4)
[2020-10-25 08:00] VITALS: BP 145/75
[2020-10-25] MEDS: PANTOPRAZOLE 40 MG (PROTONIX) VIAL IV SCH ×2 (08:15→21:16)
--- NOTE | 2020-10-25 08:50 | Progress Note - Hospitalist ---
Subjective HPI/CC On Admission Date Seen by Provider: Oct 25, 2020 Time Seen by Provider: 08:48 Jessica Yates is a 60-year-old female with past medical history of type 1 diabetes mellitus on insulin, chronic kidney disease stage III, who presented for a scheduled laparoscopic cholecystectomy due to biliary dyskinesia. She is now postop day 1. She is having severe abdominal pain. She reports nausea but no vomiting. She has not been able to eat. She denies fevers and chills. She denies chest pain and shortness of breath. She has no other complaints or concerns. Subjective/Events-last exam Pt reports feeling better but still having pain. ABEBE still draining. No specific complaints or concerns for me. Focused Exam Lactate Level 10/22/20 12:50: Lactic Acid Level 2.75*H 10/22/20 17:38: Lactic Acid Level 2.42*H 10/22/20 21:10: Lactic Acid Level 1.38 Objective Exam Vital Signs Vital Signs Date Time Temp Pulse Resp B/P (MAP) Pulse Ox O2 Delivery O2 Flow Rate FiO2 10/25/20 08:00 Room Air 10/25/20 08:00 36.5 83 16 145/75 (98) 97 2.00 Capillary Refill : General Appearance: No Apparent Distress, Chronically ill, Thin Respiratory: Lungs Clear, No Accessory Muscle Use, No Respiratory Distress Cardiovascular: Regular Rate, Rhythm, No Murmur Neurologic/Psychiatric: Alert, Oriented x3 Results/Procedures Lab Laboratory Tests 10/25/20 05:30 Patient resulted labs reviewed. Imaging: Reviewed Imaging Report Assessment/Plan Assessment and Plan Assess & Plan/Chief Complaint Acute postoperative abdominal pain s/p laparoscopic cholecystectomy Biliary dyskinesia Severe sepsis Lactic acidosis Acute kidney injury superimposed on chronic kidney disease 3 Elevated LFTs POD #4 lap yelena, POD #2 exploratory laparoscopy No evidence of leak or perforation on second look surgery Surgery primary, Dr. 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
[2020-10-25] MEDS: AA 4.25% W/LYTES IN D5W IV SOL 1,000 ML IV SCH (09:28)
[2020-10-25] MEDS: NS IV 1000 ML 1,000 ML IV SCH (10:58)
[2020-10-25 11:39] VITALS: BP 154/72
[2020-10-25] MEDS: ENOXAPARIN 40 MG/0.4 ML (LOVENOX) SYR SC SCH (15:12)
[2020-10-25 16:00] VITALS: BP 146/67
[2020-10-25] MEDS ORDERED: NS IV 1000 ML 1,000 ML IV SCH (17:00)
[2020-10-25] MEDS ORDERED: SODIUM CHLORIDE IV SCH ×12 (17:00)
[2020-10-25] MEDS ORDERED: SODIUM ACETATE IV SCH ×12 (17:00)
[2020-10-25] MEDS ORDERED: [UNRECOGNIZED DRUG - OTHER] IV SCH ×12 (17:00)
--- NOTE | 2020-10-25 17:09 | Progress Note ---
Subjective Date Seen by a Provider: Oct 25, 2020 Time Seen by a Provider: 16:30 Subjective/Events-last exam Patient seen with Dr. Haynes. Patient reports doing much better today. Tolerating clear liquids. Passing flatus. Denies any pain, N/V, or any other issues. Ambulating. Focused Exam Lactate Level 10/22/20 17:38: Lactic Acid Level 2.42*H 10/22/20 21:10: Lactic Acid Level 1.38 Objective Exam Vital Signs Date Time Temp Pulse Resp B/P (MAP) Pulse Ox O2 Delivery O2 Flow Rate FiO2 10/25/20 16:00 36.3 84 20 146/67 (93) 99 Room Air 10/25/20 15:57 36.6 10/25/20 11:39 36.6 80 18 154/72 (99) 94 Nasal Cannula 2.00 10/25/20 11:32 92 Nasal Cannula 2.00 10/25/20 08:00 Room Air 10/25/20 08:00 36.5 83 16 145/75 (98) 97 Nasal Cannula 2.00 10/25/20 06:34 20 10/25/20 03:50 36.6 82 20 184/80 (114) 98 Nasal Cannula 2.00 10/24/20 23:17 36.4 89 22 179/64 (102) 93 Room Air 10/24/20 20:16 Room Air 10/24/20 20:01 36.7 92 20 105/57 (73) 94 Room Air I & O 10/25/20 07:00 Intake Total 4020 ml Output Total 945 ml Balance 3075 ml Capillary Refill : General Appearance: No Apparent Distress, WD/WN Neck: Normal Inspection, Supple Respiratory: No Accessory Muscle Use, No Respiratory Distress Cardiovascular: Regular Rate, Rhythm, No Edema Gastrointestinal: normal bowel sounds, non tender, soft, other (Incisions C/D/I. ABEBE drain with clear serous to SS drainage) Extremity: Normal Inspection, Normal Range of Motion Neurologic/Psychiatric: Alert, Oriented x3 Skin: Normal Color, Warm/Dry Results Lab Laboratory Tests 10/24/20 20:31: Glucometer 107 10/25/20 03:47: Glucometer 169H 10/25/20 05:30: Sodium Level 136, Potassium Level 4.4, Chloride Level 101, Carbon Dioxide Level 21, Anion Gap 14, Blood Urea Nitrogen 34H, Creatinine 1.32H, Estimat Glomerular Filtration Rate 41, BUN/Creatinine Ratio 26, Glucose Level 275H, Calcium Level 7.6L, Corrected Calcium 8.7, Phosphorus Level 3.2, Magnesium Level 2.3, Total Bilirubin 0.9, Aspartate Amino Transf (AST/SGOT) 29, Alanine Aminotransferase (ALT/SGPT) 49, Alkaline Phosphatase 213H, Total Protein 5.7L, Albumin 2.6L, Triglycerides Level 121 10/25/20 10:23: Glucometer 332H 10/25/20 16:28: Glucometer 126H Microbiology 10/21/20 MRSA Screen - Final, Complete MRSA not isolated Assessment/Plan Assessment/Plan Assess & Plan/Chief Complaint s/p lap yelena, groshong, EGD, colonoscopy with hyperglycemia. VSS WBC trending down to 18.9 IM consulted. increase ambulation and IS. 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
[2020-10-25 20:00] VITALS: BP 136/63
[2020-10-26] VITALS (7 sets, daily range): BP systolic 125–189; BP diastolic 58–81
[2020-10-26] MEDS: fentaNYL INJ 100 MCG/2 ML AMP IVP PRN ×2 (00:50→13:58)
[2020-10-26] MEDS: PIPERACILLIN/TAZOBACTAM (BULK) 4.5 GM in NS (IVPB) 100 ML IV SCH ×2 (04:46→10:52)
[2020-10-26] MEDS: inSUlin ASPART (NovoLOG) 1 UNIT/0.01 ML (CHARGE PER UNIT) SC SCH ×2 (05:27→10:45)
[2020-10-26 05:32] LABS: BASOPHILS # (AUTO) 0.1 10^3/uL (0.0-0.1); BASOPHILS % (AUTO) 0 % (0-10); EOSINOPHILS # (AUTO) 0.5 10^3/uL (0.0-0.3); EOSINOPHILS % (AUTO) 4 % (0-10); HEMATOCRIT 31 % (35-52); HEMOGLOBIN 9.7 g/dL (11.5-16.0); LYMPHOCYTES # (AUTO) 1.4 10^3/uL (1.0-4.0); LYMPHOCYTES % (AUTO) 11 % (12-44); MEAN CORPUSCULAR HEMOGLOBIN 30 pg (25-34); MEAN CORPUSCULAR HGB CONC 32 g/dL (32-36); MEAN CORPUSCULAR VOLUME 95 fL (80-99); MEAN PLATELET VOLUME 10.1 fL (9.0-12.2); MONOCYTES # (AUTO) 0.8 10^3/uL (0.0-1.0); MONOCYTES % (AUTO) 7 % (0-12); NEUTROPHILS # (AUTO) 9.6 10^3/uL (1.8-7.8); NEUTROPHILS % (AUTO) 77 % (42-75); PLATELET COUNT 261 10^3/uL (130-400); WHITE BLOOD COUNT 12.4 10^3/uL (4.3-11.0)
[2020-10-26 05:43] LABS: ALBUMIN 2.2 GM/DL (3.2-4.5); POTASSIUM 3.9 MMOL/L (3.6-5.0)
[2020-10-26 05:44] LABS: CALCIUM 7.2 MG/DL (8.5-10.1)
[2020-10-26 05:45] LABS: TOTAL PROTEIN 4.7 GM/DL (6.4-8.2)
[2020-10-26 05:47] LABS: BILIRUBIN,TOTAL 0.5 MG/DL (0.1-1.0)
[2020-10-26 05:49] LABS: CREATININE SERUM 1.22 MG/DL (0.60-1.30)
--- NOTE | 2020-10-26 06:57 | Pulmonary Consultation ---
History of Present Illness History of Present Illness Date Seen by Provider: Oct 26, 2020 Time Seen by Provider: 06:51 Date of Admission History of Present Illness 60yo with hx of IDDM 1, CKD III, presented for a scheduled laparoscopic cholecystectomy due to biliary dyskinesia. She complains of severe abdominal pain. She reports nausea but no vomiting. She has not been able to eat. She denies fevers and chills. She denies chest pain and shortness of breath. Abdominal pain has improved since admission. ABEBE still draining. Allergies and Home Medications Allergies Coded Allergies: ciprofloxacin (Verified Allergy, Mild, redness and itching , 12/04/18) redness and itching at iv site Home Medications Aspirin 81 Mg Tab.chew, 81 MG PO DAILY, (Reported) Buspirone HCl 5 Mg Tablet, 5 MG PO BID, (Reported) LAST FILLED 07-08-2020 #60/30 DAY SUPPLY Clopidogrel Bisulfate 75 Mg Tablet, 75 MG PO DAILY, (Reported) Gabapentin 100 Mg Capsule, 100 MG PO HS, (Reported) Ibuprofen 200 Mg Tablet, 400-600 MG PO Q6H PRN for PAIN-MILD (1-4), (Reported) Insulin Aspart 100 Unit/1 Ml Susp, 12 UNITS SQ TIDWM, (Reported) Insulin Determir 1,000 Units/10 Ml Soln, 10 UNITS SQ BID Prescribed by: DAWSON DEL ROSARIO on 09/04/20 1227 Levothyroxine Sodium 175 Mcg Tablet, 175 MCG PO DAILY, (Reported) Lisinopril 20 Mg Tablet, 20 MG PO DAILY Prescribed by: DAWSON DEL ROSARIO on 09/04/20 1227 Montelukast Sodium 10 Mg Tablet, 10 MG PO HS, (Reported) Ondansetron 8 Mg Tab.rapdis, 8 MG PO Q8H, (Reported) Paroxetine HCl 40 Mg Tablet, 40 MG PO DAILY, (Reported) Polyethylene Glycol 3350 17 Gm Powd.pack, 17 GM PO DAILY, (Reported) Past Wnknmof-Neivfi-Lssfvt Hx Patient Social History Alcohol Use: Denies Use Smoking Status: Current Everyday Smoker Type Used: Cigarettes 2nd Hand Smoke Exposure: No Recent Hopitalizations: No Have you traveled recently?: No Alcohol Use?: No Immunizations Up To Date Tetanus Booster (TDap): Unknown PED Vaccines UTD: No Date of Pneumonia Vaccine: Apr 02, 2013 Date of Influenza Vaccine: Apr 22, 2020 Seasonal Allergies Seasonal Allergies: No Past Medical History Surgeries: Yes (SEE BELOW) Abdominal, Cardiac, CABG, 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, Oophorectomy, Orthopedic, Thyroidectomy, Vascular Surgery Respiratory: Yes COPD Currently Using CPAP: No Currently Using BIPAP: No Cardiac: Yes (RIGHT ILIAC STENT; 4 VESSEL CABG AND RIGHT CAROTID ENDARTERECTOMY 12/2015) Coronary Artery Disease, High Cholesterol, Hypertension, Peripheral Vascular Neurological: Yes Headaches /Migraines, Neuropathy Reproductive Disorders: No Female Reproductive Disorders: Denies 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, Menopausal Sexually Transmitted Disease: No HIV/AIDS: No Genitourinary: No Gastrointestinal: Yes Gastroesophageal Reflux, Chronic Constipation, Chronic Diarrhea, Hiatal Hernia Musculoskeletal: Yes (CHRONIC NECK PAIN--S/P CERVICAL FUSION) Degenerate Disk Disease, Chronic Back Pain Endocrine: Yes Diabetes, Insulin dep, Hypothyroidsim HEENT: No Loss of Vision: Denies Hearing Impairment: Denies Cancer: No Psychosocial: Yes Anxiety, Depression Integumentary: Yes (PREVIOUS ABCESSES) Blood Disorders: No Adverse Reaction/Blood Tranf: No Family Medical History Cancer G8 BROTHER, Onset:Unknown G8 BROTHER, Onset:Unknown Cancer of colon G8 BROTHER, Onset:Unknown Chest pain 19 MOTHER, Onset:Unknown Colon cancer Congestive heart failure 19 FATHER, Onset:60 years & older Family history: Alzheimer's disease 19 MOTHER, Onset:50's - 60 Family history: Arthritis 19 MOTHER, Onset:Unknown Family history: Asthma 19 FATHER, Onset:Unknown Family history: Cardiovascular disease 19 MOTHER, Onset:50's - 60 Family history: Coronary thrombosis 19 MOTHER, Onset:Unknown Family history: Diabetes mellitus 19 MOTHER, Onset:Unknown Family history: Hypertension 19 MOTHER, Onset:50's - 60 Family history: Thyroid disorder 19 MOTHER, Onset:50's - 60 Heart disease 19 MOTHER, Onset:50's - 60 Human immunodeficiency virus (HIV) seropositivity G8 BROTHER, Onset:40's - 50 Myocardial infarction 19 MOTHER, Onset:50's - 60 No Family History of: Abdominal aortic aneurysm Pecos's disease Alcoholism Aphasia Cataract Congenital heart disease Cystic fibrosis Dementia Dysphagia Family history: Allergy Family history: Breast disease Family history: Gastrointestinal disease Family history: Glaucoma Family history: Osteoporosis Headache Hearing loss Hereditary disease History of - anemia History of - disorder History of - respiratory disease History of drug abuse Hypercholesterolemia Infertile Kidney disease Malignant neoplasm of lung Parkinson's disease Prostate cancer Psychotic disorder Seizure disorder Stroke Tuberculosis Visual impairment PSH: -RIGHT ILIAC ARTERY STENT -4 VESSEL CABG 12/2015 -RIGHT CAROTID ENDARTERECTOMY 12/2015 -TONSILLECTOMY -HYSTERECTOMY/BSO -LAPAROSCOPIC RENETTA FUNDOPLICATION -CERVICAL SPINE FUSION Review of Systems Time Seen by Provider: 06:59 Sepsis Event Evaluation Height, Weight, BMI Height: 5'5.00" Weight: 125lbs. 0.0oz. [id number]; 20.60 BMI Method:Stated Exam Exam Vital Signs Date Time Temp Pulse Resp B/P (MAP) Pulse Ox O2 Delivery O2 Flow Rate FiO2 10/26/20 04:47 36.6 87 18 189/81 (117) 94 10/26/20 02:08 84 169/75 (106) 10/26/20 01:30 36.4 10/26/20 00:44 36.4 94 20 184/68 (106) 85 Room Air 10/25/20 23:37 36.5 10/25/20 20:30 Room Air 10/25/20 20:00 36.5 84 20 136/63 (87) 63 Room Air 10/25/20 16:00 36.3 84 20 146/67 (93) 99 Room Air 10/25/20 15:57 36.6 10/25/20 11:39 36.6 80 18 154/72 (99) 94 Nasal Cannula 2.00 10/25/20 11:32 92 Nasal Cannula 2.00 10/25/20 08:00 Room Air 10/25/20 08:00 36.5 83 16 145/75 (98) 97 Nasal Cannula 2.00 I & O 10/26/20 07:00 Intake Total 1860 ml Output Total 375 ml Balance 1485 ml Height & Weight Height: 5'5.00" Weight: 125lbs. 0.0oz. [id number]; 20.60 BMI Method:Stated General Appearance: No Apparent Distress, WD/WN HEENT: PERRL/EOMI Neck: Normal Inspection, Supple Respiratory: No Accessory Muscle Use, No Respiratory Distress Cardiovascular: Regular Rate, Rhythm, No Edema Gastrointestinal: normal bowel sounds, non tender, soft, other (Incisions C/D/I. ABEBE drain with clear serous to SS drainage) Extremity: Normal Inspection, Normal Range of Motion Neurologic/Psychiatric: Alert, Oriented x3 Skin: Normal Color, Warm/Dry Lymphatic: No Adenopathy Results Lab Laboratory Tests 10/25/20 05:30 10/26/20 04:40 Assessment/Plan Assessment/Plan Acute postoperative abdominal pain s/p lap yelena and s/p ex Lab -Pain control -Surgery following PNA -Currently on Zosyn -Check BNP and PCT s/p laparoscopic cholecystectomy Biliary dyskinesia Severe sepsis Lactic acidosis Acute on chronic renal disease Elevated LFTs T1DM CHRISTAL PEACE DO Oct 26, 2020 06:57
[2020-10-26] MEDS ORDERED: lisINopril 10 MG (PRINIVIL) TABLET PO SCH (09:00)
[2020-10-26] MEDS: PANTOPRAZOLE 40 MG (PROTONIX) VIAL IV SCH (09:03)
[2020-10-26] MEDS: oxyCODONE/APAP 5/325MG (PERCOCET 5) TABLET PO PRN ×2 (10:45→13:50)
[2020-10-26] MEDS ORDERED: HYOSCYAMINE 0.125 MG (LEVSIN) TAB PO PRN (15:15)
[2020-10-26] MEDS ORDERED: oxyCODONE/APAP 7.5-325 MG (PERCOCET 7.5) TABLET PO PRN (15:15)
[2020-10-26] MEDS: ENOXAPARIN 40 MG/0.4 ML (LOVENOX) SYR SC SCH (15:20)
--- NOTE | 2020-10-28 15:05 | Physician Query Clarification ---
PQ-Link Infection to Dev/Proc Admission/Discharge Admission Date: Oct 22, 2020 at 14:56 Discharge Date: Oct 26, 2020 at 17:15 Dr. Braun The medical record reflects the following clinical scenario: History/Risk Factors: biliary dyskinesia Clinical Findings: T 36.0, P 91, R 20, WBC 32.2, Lactic acid 2.75 Treatment: IV Piperacillin, IV Protonix Question: Can you specify if the sepsis is due to/associated with lap yelena? Please document a response in Progress Note or Discharge Summary. 1. Yes - sepsis is due to/associated with lap yelena. 2. No - sepsis is not due to/associated with lap yelena. 3. Other, with explanation of the clinical findings. 4. Clinically undetermined, no explanation for the clinical findings. PHYSICIAN RESPONSE Specify if infection: Other, explain clinical findings Explanation of clincal finding sepsis due to c. diff colitis. Please remember a lack of response to the above will prompt a phone page by [facility]oding staff. In responding to this query, please exercise your independent professional judgment. The purpose of this communication is to more accurately reflect the complexity of your patients condition. The fact that a question is asked does not imply that any particular answer is desired or expected. Thank you for your timely response to this clarification. Requestors name: [email or web address] THIS PHYSICIAN QUERY FORM IS A PERMANENT PART OF THE MEDICAL RECORD OLIVIA LR Oct 28, 2020 15:05 NAKUL YUEN MD November 11, 2020 10:54
--- NOTE | 2020-11-12 07:04 | DISCHARGE SUMMARY ---
DATE OF SERVICE: ATTENDING PRIMARY CARE PHYSICIAN: Phillip Sanchez MD ADMISSION DIAGNOSES: Right upper abdominal quadrant pain, reflux, nausea, vomiting, weight loss, weakness, family history of colon cancer. OTHER DIAGNOSES: Insulin-dependent diabetes, chronic obstructive pulmonary disease, peripheral vascular disease, coronary artery disease, depression, hypothyroid, hypercholesterolemia, neuropathy. PRINCIPAL PROCEDURES: EGD, colonoscopy, placement of left subclavian Groshong implantable catheter, laparoscopic cholecystectomy. ADDITIONAL PROCEDURES: Diagnostic laparoscopy and drain placement. COMPLICATIONS: No complications. DISPOSITION: Home in stable condition. HOSPITAL COURSE: The patient is a 60-year-old female referred over to us for right upper abdominal quadrant pain, reflux, nausea, vomiting, weight loss and dehydration. She is also in need of a screening colonoscopy with a family history of colon cancer. During her workup, she underwent an ultrasound, which did not show any gallstones; however, HIDA scan did show a low ejection fraction of 24% and she also did have the elicitation of nausea and vomiting consistent with symptomatic biliary dyskinesia. She also states that she has had a longstanding history of gastroesophageal reflux disease with epigastric burning sensation. She has also in need of a screening colonoscopy for she does have a first-degree family history of colon cancer with her brother having the disease. She underwent a laparoscopic cholecystectomy, placement of a left subclavian Groshong implantable catheter under fluoroscopy as well as an EGD with biopsy and colonoscopy with biopsy. She did well postoperatively and was sent to the general surgical floor; however, the following day, she was seen by us and did not appear to be in distress; however, was then seen by the hospitalist and their interpretation was peritoneal signs and labs were drawn, which did show an elevation of white count of 32,000. Due to this finding, it was decided to proceed with a diagnostic laparoscopy. During the diagnostic laparoscopy, there was old clotted blood areas within the peritoneal cavity; however, there was no turbid fluid purulence, abscess or any inflammatory changes to indicate any gastrointestinal injury or leak. A 19-Slovak Win-German drain was then placed. She was started on Zosyn due to her significant COPD as well as pneumonia risk. Remainder of her hospital course was uneventful. She was started on a clear liquid diet and advance to a low residue diet without any difficulty. We were able to achieve adequate pain control initially with IV pain medication; however, to completely oral pain medication. She was awake; however, was able to ambulate and do the vast majority of her activities of daily living. She did have a severe elevation of blood glucose during postoperative period and the hospitalist was consulted and managed and she was able to become euglycemic over time. She was discharged home on 10/26/2020. HOME-GOING INSTRUCTIONS: 2000 calorie ADA diabetic diet. No activity restrictions; however, no heavy lifting or exertion for the next six weeks. Resume all previous home medications, Lortab p.r.n. She is instructed to follow up with us in the office in two weeks as well as to continue to see her primary care physician. Job ID: [id number] DocumentID: [id number] Dictated Date: 11/11/2020 18:24:31 Post Anesthesia Room Nurse Date: 11/12/2020 07:04:23 Dictated By: NAKUL YUEN MD MTDD
== END 2020-10-26 17:15 | disposition home or self-care (01) | DRG 853 ==
LOC: SDC 11:21 → 4TH 20:29 → SDC 10-22 14:55 → ICU 10-22 14:56 → UNDOFXSDCSVC 10-22 15:00 → ICU 10-22 15:00 → 4TH 10-22 15:00 → UNDOFXSDCSVC 10-23 12:26 → ICU 10-23 12:26 → 4TH 10-23 12:26 → SDC 10-26 17:15 → 4TH 10-26 17:15
PROVIDERS: ADMIT Surgery; ATTEND Surgery
PROC: 0DB78ZX Excision of Stomach, Pylorus, Via Natural or Artificial Opening Endoscopic, Diagnostic (ICD-10-PCS; 2020-10-21)
PROC: 0DB48ZX Excision of Esophagogastric Junction, Via Natural or Artificial Opening Endoscopic, Diagnostic (ICD-10-PCS; 2020-10-21)
PROC: 0DBL8ZX Excision of Transverse Colon, Via Natural or Artificial Opening Endoscopic, Diagnostic (ICD-10-PCS; 2020-10-21)
PROC: 0FT44ZZ Resection of Gallbladder, Percutaneous Endoscopic Approach (ICD-10-PCS; principal; 2020-10-21 16:07)
PROC: 0JH60WZ Insertion of Totally Implantable Vascular Access Device into Chest Subcutaneous Tissue and Fascia, Open Approach (ICD-10-PCS; 2020-10-21 16:07)
PROC: 02HV33Z Insertion of Infusion Device into Superior Vena Cava, Percutaneous Approach (ICD-10-PCS; 2020-10-21 16:07)
PROC: 0WJG4ZZ Inspection of Peritoneal Cavity, Percutaneous Endoscopic Approach (ICD-10-PCS; 2020-10-22)
PROC: 0D9680Z Drainage of Stomach with Drainage Device, Via Natural or Artificial Opening Endoscopic (ICD-10-PCS; 2020-10-22)
DX: A41.9 Sepsis, unspecified organism (principal); J18.9 Pneumonia, unspecified organism; E87.2 Acidosis; N17.9 Acute kidney failure, unspecified; A04.72 Enterocolitis due to Clostridium difficile, not specified as recurrent; R65.20 Severe sepsis without septic shock; G89.18 Other acute postprocedural pain; K21.00 Gastro-esophageal reflux disease with esophagitis, without bleeding; K29.70 Gastritis, unspecified, without bleeding; K64.8 Other hemorrhoids; K64.4 Residual hemorrhoidal skin tags; K63.5 Polyp of colon; E87.5 Hyperkalemia; K21.9 Gastro-esophageal reflux disease without esophagitis; J44.9 Chronic obstructive pulmonary disease, unspecified; E10.65 Type 1 diabetes mellitus with hyperglycemia; E10.40 Type 1 diabetes mellitus with diabetic neuropathy, unspecified; E10.22 Type 1 diabetes mellitus with diabetic chronic kidney disease; N18.30 Chronic kidney disease, stage 3 unspecified; Z79.4 Long term (current) use of insulin; K82.8 Other specified diseases of gallbladder; I73.9 Peripheral vascular disease, unspecified; I25.10 Atherosclerotic heart disease of native coronary artery without angina pectoris; F32.9 Major depressive disorder, single episode, unspecified; E03.9 Hypothyroidism, unspecified; E78.00 Pure hypercholesterolemia, unspecified; F17.210 Nicotine dependence, cigarettes, uncomplicated; Z95.1 Presence of aortocoronary bypass graft; Z98.1 Arthrodesis status; Z79.82 Long term (current) use of aspirin; Z80.0 Family history of malignant neoplasm of digestive organs
CPT/HCPCS: 36415; 71045; 74018; 76000; 80053; 82962; 83880; 84145; 85025; 87081; 88304; 88305; 94640; 94664

== ENCOUNTER 2020-11-08 23:05 | Inpatient (IN) | payer OTHER ==
[~2020-11-08] VITALS: Ht 167 cm; Wt 56.2 kg
[~2020-11-08 23:05] MED LIST changes: +ONDA8TAB13 PO; +POLY17PO6 PO
--- NOTE | 2020-11-08 23:43 | ED Abdominal Pain ---
General Chief Complaint: Abdominal/GI Problems Stated Complaint: SEVERE ABD PAIN Source of Information: Patient Exam Limitations: No Limitations History of Present Illness Date Seen by Provider: November 08, 2020 Time Seen by Provider: 23:28 Initial Comments Patient is a 60-year-old female who presents to the emergency department with a chief complaint of severe abdominal pain. Patient states onset of pain gradually approximately 2 hours ago. She is not nauseated. Patient states that she had a cholecystectomy about 2 weeks ago. She had an "ileus" after this and went back to surgery and had a drain placed.. Patient states that she has been having some diarrhea. Her only prior abdominal surgery is a Renetta many years ago. Patient is a type I diabetic for the last 30 years. She states she has good control over her sugars. Patient states that she is having some lower leg swelling that she has had since her surgery. She is having a follow-up with her doctor and Dr. Haynes tomorrow to address this. She denies any fevers or chills. She rates the pain a "an 8". All other review of systems reviewed and negative except as stated above. Timing/Duration: 1-3 Hours Severity/Quality: Severe, Aching Location: Generalized Abdomen Activities at Onset: None Allergies and Home Medications Allergies Coded Allergies: ciprofloxacin (Verified Allergy, Mild, redness and itching , 12/04/18) redness and itching at iv site Home Medications Aspirin 81 Mg Tab.chew, 81 MG PO DAILY, (Reported) Last Action: Reviewed Atorvastatin Calcium 40 Mg Tablet, 40 MG PO HS, (Reported) LAST FILLED 09-07-2020 #30/30 DAY SUPPLY Last Action: Reviewed Buspirone HCl 5 Mg Tablet, 5 MG PO BID, (Reported) Last Action: Reviewed Clopidogrel Bisulfate 75 Mg Tablet, 75 MG PO DAILY, (Reported) Last Action: Reviewed Docusate Sodium 100 Mg Capsule, 100 MG PO DAILY PRN for CONSTIPATION-1ST LINE, (Reported) Last Action: Reviewed Gabapentin 100 Mg Capsule, 100 MG PO HS, (Reported) Last Action: Reviewed Hydrocodone/Acetaminophen 1 Each Tablet, 1 EA PO Q6H PRN for PAIN-MODERATE (5- 7), (Reported) Last Action: Reviewed Hyoscyamine Sulfate 0.125 Mg Tab.subl, 0.125 MG SL Q4H PRN for SPASMS, (Reported) Last Action: Reviewed Insulin Aspart 100 Unit/1 Ml Vial, 12 UNITS SC TIDAC, (Reported) Last Action: Reviewed Insulin Determir 1,000 Units/10 Ml Soln, 10 UNITS SQ HS, (Reported) Last Action: Reviewed Insulin Determir 1,000 Units/10 Ml Soln, 16 UNITS SQ DAILY, (Reported) Last Action: Reviewed Levothyroxine Sodium 175 Mcg Tablet, 175 MCG PO DAILY, (Reported) Last Action: Reviewed Ondansetron HCl 8 Mg Tablet, 8 MG PO Q8H PRN for NAUSEA/VOMITING-1ST LINE, (Reported) Last Action: Reviewed Pantoprazole Sodium 40 Mg Tablet.dr, 40 MG PO DAILY, (Reported) Last Action: Reviewed Paroxetine HCl 40 Mg Tablet, 40 MG PO DAILY, (Reported) Last Action: Reviewed Polyethylene Glycol 3350 17 Gm Powd.pack, 17 GM PO DAILY, (Reported) Last Action: Reviewed Patient Home Medication List Home Medication List Reviewed: Yes Review of Systems Review of Systems Constitutional: see HPI EENTM: No Symptoms Reported Respiratory: SOA at Rest (Secondary to pain) Cardiovascular: No Symptoms Reported Gastrointestinal: Abdomen Distended, Abdominal Pain, Diarrhea Genitourinary: No Symptoms Reported Musculoskeletal: no symptoms reported Skin: no symptoms reported Psychiatric/Neurological: No Symptoms Reported All Other Systems Reviewed Negative Unless Noted: Yes Past Uorbigo-Frttgb-Ypsuiw Hx Patient Social History Type Used: Cigarettes 2nd Hand Smoke Exposure: No Recent Hopitalizations: No Immunizations Up To Date Tetanus Booster (TDap): Unknown PED Vaccines UTD: No Date of Pneumonia Vaccine: Apr 02, 2013 Date of Influenza Vaccine: May 07, 2015 Seasonal Allergies Seasonal Allergies: No Past Medical History Surgeries: Yes (SEE BELOW) Abdominal, Cardiac, CABG, 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, Oophorectomy, Orthopedic, Thyroidectomy, Vascular Surgery Respiratory: Yes COPD Currently Using CPAP: No Currently Using BIPAP: No Cardiac: Yes (RIGHT ILIAC STENT; 4 VESSEL CABG AND RIGHT CAROTID ENDARTERECTOMY 12/2015) Coronary Artery Disease, High Cholesterol, Hypertension, Peripheral Vascular Neurological: Yes Headaches /Migraines, Neuropathy Reproductive Disorders: No Female Reproductive Disorders: 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, 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 Sexually Transmitted Disease: No HIV/AIDS: No Genitourinary: No Gastrointestinal: Yes Gastroesophageal Reflux, Chronic Constipation, Chronic Diarrhea, Hiatal Hernia Musculoskeletal: Yes (CHRONIC NECK PAIN--S/P CERVICAL FUSION) Degenerate Disk Disease, Chronic Back Pain Endocrine: Yes Diabetes, Insulin dep, Hypothyroidsim HEENT: No Hearing Impairment: Denies Cancer: No Psychosocial: Yes Anxiety, Depression Integumentary: Yes (PREVIOUS ABCESSES) Blood Disorders: No Adverse Reaction/Blood Tranf: No Family Medical History Cancer G8 BROTHER, Onset:Unknown G8 BROTHER, Onset:Unknown Cancer of colon G8 BROTHER, Onset:Unknown Chest pain 19 MOTHER, Onset:Unknown Colon cancer Congestive heart failure 19 FATHER, Onset:60 years & older Family history: Alzheimer's disease 19 MOTHER, Onset:50's - 60 Family history: Arthritis 19 MOTHER, Onset:Unknown Family history: Asthma 19 FATHER, Onset:Unknown Family history: Cardiovascular disease 19 MOTHER, Onset:50's - 60 Family history: Coronary thrombosis 19 MOTHER, Onset:Unknown Family history: Diabetes mellitus 19 MOTHER, Onset:Unknown Family history: Hypertension 19 MOTHER, Onset:50's - 60 Family history: Thyroid disorder 19 MOTHER, Onset:50's - 60 Heart disease 19 MOTHER, Onset:50's - 60 Human immunodeficiency virus (HIV) seropositivity G8 BROTHER, Onset:40's - 50 Myocardial infarction 19 MOTHER, Onset:50's - 60 No Family History of: Abdominal aortic aneurysm Kotlik's disease Alcoholism Aphasia Cataract Congenital heart disease Cystic fibrosis Dementia Dysphagia Family history: Allergy Family history: Breast disease Family history: Gastrointestinal disease Family history: Glaucoma Family history: Osteoporosis Headache Hearing loss Hereditary disease History of - anemia History of - disorder History of - respiratory disease History of drug abuse Hypercholesterolemia Infertile Kidney disease Malignant neoplasm of lung Parkinson's disease Prostate cancer Psychotic disorder Seizure disorder Stroke Tuberculosis Visual impairment PSH: -RIGHT ILIAC ARTERY STENT -4 VESSEL CABG 12/2015 -RIGHT CAROTID ENDARTERECTOMY 12/2015 -TONSILLECTOMY -HYSTERECTOMY/BSO -LAPAROSCOPIC RENETTA FUNDOPLICATION -CERVICAL SPINE FUSION Physical Exam Vital Signs Vital Signs - First Documented 11/08/20 23:25 Temp 36.8 Pulse 109 Resp 18 B/P (MAP) 171/72 (105) O2 Delivery Room Air Capillary Refill : Height/Weight/BMI Height: 5'5.00" Weight: 125lbs. 0.0oz. 56.518117dg; 19.66 BMI Method:Stated General Appearance: WD/WN, moderate distress HEENT: PERRL/EOMI Neck: normal inspection Respiratory: lungs clear, normal breath sounds, no respiratory distress, no accessory muscle use Cardiovascular: regular rate, rhythm, tachycardia Gastrointestinal: abnormal bowel sounds (Hyperactive bowel sounds), distended, guarding, rebound, tenderness Extremities: normal range of motion, non-tender, pedal edema (1+ pedal edema bilateral lower extremities) Neurologic/Psychiatric: alert, normal mood/affect, oriented x 3 Skin: normal color, warm/dry Focused Exam Lactate Level 11/08/20 23:58: Lactic Acid Level 2.41*H Lactic Acid Level Laboratory Tests Test 11/08/20 23:58 Lactic Acid Level 2.41 MMOL/L (0.50-2.00) *H Progress/Results/Core Measures Results/Orders Lab Results Laboratory Tests Test 11/08/20 23:58 Range/Units White Blood Count 17.3 H 4.3-11.0 10^3/uL Red Blood Count 3.54 L 3.80-5.11 10^6/uL Hemoglobin 10.6 L 11.5-16.0 g/dL Hematocrit 34 L 35-52 % Mean Corpuscular Volume 96 80-99 fL Mean Corpuscular Hemoglobin 30 25-34 pg Mean Corpuscular Hemoglobin Concent 31 L 32-36 g/dL Red Cell Distribution Width 15.0 H 10.0-14.5 % Platelet Count 587 H 130-400 10^3/uL Mean Platelet Volume 8.9 L 9.0-12.2 fL Immature Granulocyte % (Auto) 1 % Neutrophils (%) (Auto) 68 42-75 % Lymphocytes (%) (Auto) 18 12-44 % Monocytes (%) (Auto) 5 0-12 % Eosinophils (%) (Auto) 8 0-10 % Basophils (%) (Auto) 1 0-10 % Neutrophils # (Auto) 11.7 H 1.8-7.8 10^3/uL Lymphocytes # (Auto) 3.1 1.0-4.0 10^3/uL Monocytes # (Auto) 0.8 0.0-1.0 10^3/uL Eosinophils # (Auto) 1.4 H 0.0-0.3 10^3/uL Basophils # (Auto) 0.2 H 0.0-0.1 10^3/uL Immature Granulocyte # (Auto) 0.1 0.0-0.1 10^3/uL Neutrophils % (Manual) 67 % Lymphocytes % (Manual) 14 % Monocytes % (Manual) 8 % Eosinophils % (Manual) 11 % Blood Morphology Comment NORMAL Sodium Level 140 135-145 MMOL/L Potassium Level 5.3 H 3.6-5.0 MMOL/L Chloride Level 101 98-107 MMOL/L Carbon Dioxide Level 28 21-32 MMOL/L Anion Gap 11 5-14 MMOL/L Blood Urea Nitrogen 29 H 7-18 MG/DL Creatinine 1.55 H 0.60-1.30 MG/DL Estimat Glomerular Filtration Rate 34 BUN/Creatinine Ratio 19 Glucose Level 222 H 70-105 MG/DL Lactic Acid Level 2.41 *H 0.50-2.00 MMOL/L Calcium Level 7.8 L 8.5-10.1 MG/DL Corrected Calcium 8.8 8.5-10.1 MG/DL Total Bilirubin 0.1 0.1-1.0 MG/DL Aspartate Amino Transf (AST/SGOT) 45 H 5-34 U/L Alanine Aminotransferase (ALT/SGPT) 32 0-55 U/L Alkaline Phosphatase 245 H 40-136 U/L Total Protein 5.4 L 6.4-8.2 GM/DL Albumin 2.7 L 3.2-4.5 GM/DL My Orders Orders - SANIA HYDE MD Ed Iv/Invasive Line Start (11/08/20 23:43) Cbc With Automated Diff (11/08/20 23:43) Comprehensive Metabolic Panel (11/08/20 23:43) Fentanyl Inj (Sublimaze Injection) (11/08/20 23:45) Ns Iv 500 Ml (Sodium Chloride 0.9%) (11/08/20 23:44) Lactic Acid Analyzer (11/08/20 23:52) Ct Abdomen/Pelvis Wo (11/09/20 00:01) Chest 1 View, Ap/Pa Only (11/09/20 00:01) Manual Differential (11/08/20 23:58) Morphine Injection (Morphine Injection (11/09/20 00:23) Medications Given in ED Vital Signs/I&O 11/08/20 23:25 Temp 36.8 Pulse 109 Resp 18 B/P (MAP) 171/72 (105) O2 Delivery Room Air Departure Communication (Admissions) Time/Spoke to Admitting Phy: 01:[address] Amado; zosyn, fluids and pain medications Impression Primary Impression: Peritonitis Additional Impressions: Abdominal pain Qualified Codes: R10.84 - Generalized abdominal pain Diabetes type 1, controlled Qualified Codes: E10.69 - Type 1 diabetes mellitus with other specified complication Tjxbl-tn-yypblri kidney injury Qualified Codes: N17.9 - Acute kidney failure, unspecified; N18.9 - Chronic kidney disease, unspecified Disposition: 09 ADMITTED INPATIENT Condition: Stable Admissions Decision to Admit Reason: Admit from ER (General) Decision to Admit/Date: November 09, 2020 Time/Decision to Admit Time: 01:08 Departure-Patient Inst. Referrals: PILLO FRANCOIS MD (PCP/Family) Primary Care Physician SANIA HYDE MD November 08, 2020 23:42
[2020-11-08] MEDS ORDERED: NS IV 500 ML 500 ML IV STA (23:44)
[2020-11-08] MEDS ORDERED: fentaNYL INJ 100 MCG/2 ML AMP IVP ONE (23:45)
[2020-11-09] VITALS (9 sets, daily range): BP systolic 92–171; BP diastolic 45–72
[2020-11-09 00:10] LABS: BASOPHILS # (AUTO) 0.2 10^3/uL (0.0-0.1); BASOPHILS % (AUTO) 1 % (0-10); EOSINOPHILS # (AUTO) 1.4 10^3/uL (0.0-0.3); EOSINOPHILS % (AUTO) 8 % (0-10); HEMATOCRIT 34 % (35-52); HEMOGLOBIN 10.6 g/dL (11.5-16.0); LYMPHOCYTES # (AUTO) 3.1 10^3/uL (1.0-4.0); LYMPHOCYTES % (AUTO) 18 % (12-44); MEAN CORPUSCULAR HEMOGLOBIN 30 pg (25-34); MEAN CORPUSCULAR HGB CONC 31 g/dL (32-36); MEAN CORPUSCULAR VOLUME 96 fL (80-99); MEAN PLATELET VOLUME 8.9 fL (9.0-12.2); MONOCYTES # (AUTO) 0.8 10^3/uL (0.0-1.0); MONOCYTES % (AUTO) 5 % (0-12); NEUTROPHILS # (AUTO) 11.7 10^3/uL (1.8-7.8); NEUTROPHILS % (AUTO) 68 % (42-75); PLATELET COUNT 587 10^3/uL (130-400); WHITE BLOOD COUNT 17.3 10^3/uL (4.3-11.0)
[2020-11-09 00:20] LABS: ALBUMIN 2.7 GM/DL (3.2-4.5); POTASSIUM 5.3 MMOL/L (3.6-5.0)
[2020-11-09 00:21] LABS: CALCIUM 7.8 MG/DL (8.5-10.1)
[2020-11-09 00:23] LABS: TOTAL PROTEIN 5.4 GM/DL (6.4-8.2)
[2020-11-09] MEDS ORDERED: morphine INJ 10 MG/ML 1ML (SYR OR VIAL) IVP STA (00:23)
[2020-11-09 00:24] LABS: BILIRUBIN,TOTAL 0.1 MG/DL (0.1-1.0)
[2020-11-09 00:26] LABS: CREATININE SERUM 1.55 MG/DL (0.60-1.30)
[2020-11-09 00:38] LABS: EOSINOPHILS % (MANUAL) 11 %; LYMPHOCYTES % (MANUAL) 14 %; MONOCYTES % (MANUAL) 8 %; NEUTROPHILS % (MANUAL) 67 %; RBC MORPH NORMAL
[2020-11-09] MEDS ORDERED: PIPERACILLIN SODIUM/TAZOBACTAM 4.5 GM in NS (IVPB) 100 ML IV ONE (01:15)
[2020-11-09] MEDS ORDERED: PIPERACILLIN/TAZO 4.5 GM VIAL (ZOSYN) IV ONE ×2 (01:31→06:23)
[2020-11-09] MEDS ORDERED: NS (IVPB) 100 ML ONE ×2 (01:31→06:23)
[2020-11-09] MEDS ORDERED: RT-ALBUTEROL/IPRATROPIUM 3 ML (DUONEB) VIAL ONE (03:09)
[2020-11-09] MEDS ORDERED: FUROSEMIDE 40 MG/4 ML INJ (LASIX) ONE (03:19)
[2020-11-09] MEDS ORDERED: FUROSEMIDE 40 MG/4 ML INJ (LASIX) IVP ONE (03:30)
[2020-11-09] MEDS ORDERED: RT-ALBUTEROL/IPRATROPIUM 3 ML (DUONEB) VIAL INH PRN (03:30)
[2020-11-09] MEDS: morphine INJ 4 MG/ML 1 ML (VIAL/SYRINGE) IV PRN ×5 (03:32→20:46)
[2020-11-09] MEDS: NS IV 1000 ML 1,000 ML IV SCH ×2 (04:31→12:52)
[2020-11-09] MEDS ORDERED: D5 LR IV SOLUTION 1,000 ML IV ONE ×2 (06:05→06:15)
[2020-11-09] MEDS: inSUlin ASPART (NovoLOG) 1 UNIT/0.01 ML (CHARGE PER UNIT) SC SCH ×3 (06:23→18:05)
[2020-11-09] MEDS: PIPERACILLIN/TAZO 4.5 GM/NS 100 ML IV SCH ×4 (06:42→15:28)
--- NOTE | 2020-11-09 06:42 | Diagnostic Imaging Report ---
CT ABDOMEN/PELVIS WO TECHNIQUE: Unenhanced CT imaging of the abdomen and pelvis was performed. 2-D reformats are created and submitted for interpretation. Automatic exposure controls were utilized to optimize patient dose. INDICATION: Severe abdominal pain, 2 weeks status post cholecystectomy. COMPARISON: CT abdomen and pelvis of 10/18/2020 FINDINGS: Evaluation of the abdominal viscera is mildly limited without contrast. Lower chest: Right basilar linear atelectasis. Otherwise, lung bases are clear. Peritoneum: A peritoneal dialysis catheter has tip terminating in the left lower quadrant. No unexpected fluid collection or free intraperitoneal air. Liver and biliary system: Unenhanced liver is normal. Cholecystectomy. No fluid question within the gallbladder fossa. Spleen and Pancreas: Spleen is normal. Unenhanced pancreas is grossly normal. Adrenals: Normal. tract: No renal or ureteral calculi. No obstructive uropathy. Urinary bladder is normally filled without wall thickening. Status post hysterectomy. GI tract: Stomach is moderately distended with fluid and food debris. There are also a few scattered sites of air within the stomach. No bowel obstruction. No pericolonic inflammatory changes. The appendix is not seen but there are no features of acute appendicitis. Vasculature and Lymph nodes: Normal caliber aorta with extensive atherosclerotic plaquing. No abdominal or pelvic lymphadenopathy. Musculoskeletal: No concerning osseous lesion. Mild subcutaneous edema within the lower abdominal wall. IMPRESSION: 1. Status post cholecystectomy. No fluid collection within the gallbladder fossa to indicate abscess. 2. Moderate distention of the stomach with fluid and food debris. No bowel obstruction. 3. Well-positioned peritoneal dialysis catheter. No fluid collection around the tip of the catheter. 4. No renal or ureteral stones. 5. Findings are in agreement with the preliminary report. Dictated by: Dictated on workstation # [id number]
--- NOTE | 2020-11-09 06:43 | Diagnostic Imaging Report ---
INDICATION: Abdominal pain, 2 weeks postcholecystectomy FINDINGS: Left subclavian line at the lower SVC. Sternal wires midline. There is old left rib deformities chronic. The lungs are hyperexpanded but clear with resolution of infiltrates or edema present on 10/23/2020. IMPRESSION: Clear lungs at follow-up. No acute appearing abnormality. Dictated by: Dictated on workstation # [id number]
[2020-11-09] MEDS: RT-ALBUTEROL/IPRATROPIUM 3 ML (DUONEB) VIAL INH SCH ×2 (08:07→14:54)
[2020-11-09] MEDS: VANCOMYCIN 125 MG CAPSULE PO SCH ×4 (08:45→20:45)
[2020-11-09] MEDS ORDERED: DOCU-143 PO (11:53)
[2020-11-09] MEDS ORDERED: ONDA8TAB15 PO (11:53)
[2020-11-09] MEDS ORDERED: PANT40TA52 PO (11:53)
[2020-11-09] MEDS ORDERED: INSU100V42 SC (11:53)
[2020-11-09] MEDS ORDERED: ATOR40TA70 PO (11:53)
[2020-11-09] MEDS ORDERED: HYDR-3817 PO (11:53)
[2020-11-09] MEDS ORDERED: INSU100V5 SQ ×2 (11:53)
[2020-11-09] MEDS ORDERED: HYOS-19 SL (11:53)
--- NOTE | 2020-11-09 16:23 | HISTORY AND PHYSICAL ---
DATE OF SERVICE: 11/09/2020 ATTENDING PRIMARY CARE PHYSICIAN: Dr. Phillip Sanchez. HISTORY OF PRESENT ILLNESS: The patient is a 60-year-old female known to us. She was referred over to us for right upper abdominal quadrant pain, reflux, nausea, vomiting, weight loss and dehydration. She was also in need of a colonoscopy with a first-degree relative with history of colon cancer. During her workup, she underwent a gallbladder ultrasound, which was negative. She then underwent a HIDA scan, which did show a low ejection fraction of 24.8%, which also did elicit nausea and vomiting consistent with symptomatic biliary dyskinesia. She also does have a history of gastroesophageal reflux disease as well as intermittent episodes of epigastric burning sensation. She underwent a laparoscopic cholecystectomy on 10/21/2020 as well as placement of a Groshong implantable catheter, an EGD as well as a colonoscopy. She did well after the procedure; however, due to pain issues, was admitted. The following day, she did develop significant abdominal pain and peritonitis and was found to have a significant leukocytosis with a white cell count of 32,000. Her hemoglobin and hematocrit were stable. Due to this significant pain and peritonitis, it was decided to proceed with a diagnostic laparoscopy and only old clotted blood in the peritoneal cavity was identified. There was no turbid fluid or any purulence as well as no inflammation to indicate any gastrointestinal injury or leak. She did well, and a drain placed and placed on antibiotics and her leukocytosis resolved and she was discharged home. She presented to the Emergency Department with approximately 3-day history of diarrhea and then did notice blood in her stools. She also did experience some crampy abdominal pain. A Clostridium difficile titer was drawn from her stool, which was positive and she has been treated with oral vancomycin. PAST MEDICAL HISTORY: Insulin-dependent diabetes, COPD, peripheral vascular disease, coronary artery disease, depression, hypothyroid, hypercholesterolemia, neuropathy. PAST SURGICAL HISTORY: Tonsillectomy, complete hysterectomy, hiatal hernia repair and [facility] fundoplication, C3-C4 fusion, coronary artery bypass grafting 16, laparoscopic cholecystectomy 10/21/2020 diagnostic laparoscopy 10/22/2020. ALLERGIES: No known drug allergies. MEDICATIONS: Aspirin, Levemir, NovoLog, buspirone, Plavix, euthyrox, paroxetine, gabapentin, atorvastatin, montelukast. SOCIAL HISTORY: Positive smoke 40 pack years. Negative alcohol. FAMILY HISTORY: Mother, diabetes. Brother, colon cancer. VITAL SIGNS: Temperature 36.9, blood pressure 101/47, pulse 85, respirations 16, pulse ox 98% on room air. REVIEW OF SYSTEMS: This is a thin-appearing female, who is awake and alert and does answer all questions appropriately. She is not experiencing any shortness of breath or difficulty breathing. No chest pain, palpitations, diaphoresis. No nausea or vomiting; however, has had diarrhea for the past 3 days as well as some mild crampy abdominal pain and she recently noticed blood in her stools as well. No fever, chills, no recent inadvertent weight loss. All other review of systems negative. PHYSICAL EXAMINATION: CHEST: Scattered wheezes and distant breath sounds bilaterally. HEART: Regular, no murmurs. EXTREMITIES: No lower extremity edema, negative Homans sign. HEENT: No scleral icterus. NECK: No cervical lymphadenopathy. ABDOMEN: Soft, nontender, nondistended. No peritoneal signs. LABORATORY DATA: WBC 17.3, hemoglobin 10.6, hematocrit 34, platelets 587. BUN 29, creatinine 1.55, potassium 5.3, glucose on admission 222. ASSESSMENT AND PLAN: A 60-year-old female with diarrhea red blood per rectum and found to be Clostridium difficile positive. We will proceed with medical management with IV hydration, serial abdominal examinations as well as vancomycin 125 mg q.i.d. We will also start a clear liquid diet; however, when she feels better and her stools solidify somewhat then we will advance her diet as tolerated. Job ID: [id number] DocumentID: [id number] Dictated Date: 11/09/2020 16:07:44 Site Foreman Date: 11/09/2020 16:22:15 Dictated By: NAKUL YUEN MD
[2020-11-09 20:47] LABS: HEMOGLOBIN 6.6 g/dL (11.5-16.0)
[2020-11-10] VITALS (8 sets, daily range): BP systolic 127–157; BP diastolic 54–69
[2020-11-10] MEDS: inSUlin ASPART (NovoLOG) 1 UNIT/0.01 ML (CHARGE PER UNIT) SC SCH ×5 (00:39→23:55)
[2020-11-10] MEDS: PIPERACILLIN/TAZO 4.5 GM/NS 100 ML IV SCH ×8 (01:19→22:27)
[2020-11-10] MEDS: NS IV 1000 ML 1,000 ML IV SCH ×3 (05:56→20:14)
[2020-11-10] MEDS: morphine INJ 4 MG/ML 1 ML (VIAL/SYRINGE) IV PRN ×4 (06:18→22:27)
[2020-11-10 07:09] LABS: BASOPHILS # (AUTO) 0.2 10^3/uL (0.0-0.1); BASOPHILS % (AUTO) 1 % (0-10); EOSINOPHILS # (AUTO) 1.7 10^3/uL (0.0-0.3); EOSINOPHILS % (AUTO) 11 % (0-10); HEMATOCRIT 27 % (35-52); LYMPHOCYTES # (AUTO) 1.6 10^3/uL (1.0-4.0); LYMPHOCYTES % (AUTO) 10 % (12-44); MEAN CORPUSCULAR HEMOGLOBIN 29 pg (25-34); MEAN CORPUSCULAR HGB CONC 31 g/dL (32-36); MEAN CORPUSCULAR VOLUME 94 fL (80-99); MEAN PLATELET VOLUME 9.2 fL (9.0-12.2); MONOCYTES # (AUTO) 0.7 10^3/uL (0.0-1.0); MONOCYTES % (AUTO) 5 % (0-12); NEUTROPHILS # (AUTO) 11.1 10^3/uL (1.8-7.8); NEUTROPHILS % (AUTO) 72 % (42-75); PLATELET COUNT 374 10^3/uL (130-400); WHITE BLOOD COUNT 15.4 10^3/uL (4.3-11.0)
[2020-11-10 07:17] LABS: HEMOGLOBIN 8.2 g/dL (11.5-16.0)
[2020-11-10 07:20] LABS: ALBUMIN 2.3 GM/DL (3.2-4.5); POTASSIUM 5.1 MMOL/L (3.6-5.0)
[2020-11-10 07:21] LABS: CALCIUM 6.9 MG/DL (8.5-10.1)
[2020-11-10 07:22] LABS: TOTAL PROTEIN 4.4 GM/DL (6.4-8.2)
[2020-11-10 07:24] LABS: BILIRUBIN,TOTAL 0.3 MG/DL (0.1-1.0)
[2020-11-10 07:26] LABS: CREATININE SERUM 1.25 MG/DL (0.60-1.30)
[2020-11-10] MEDS: VANCOMYCIN 125 MG CAPSULE PO SCH ×4 (09:32→20:14)
--- NOTE | 2020-11-10 12:29 | Progress Note ---
Subjective Date Seen by a Provider: November 10, 2020 Time Seen by a Provider: 12:00 Subjective/Events-last exam doing ok. has loose stools with blood however incidence decreasing. no abd pain nor fever/chills. Focused Exam Lactate Level 11/08/20 23:58: Lactic Acid Level 2.41*H 11/09/20 01:58: Lactic Acid Level 1.93 11/09/20 06:33: Lactic Acid Level 1.88 Objective Exam Vital Signs Date Time Temp Pulse Resp B/P (MAP) Pulse Ox O2 Delivery O2 Flow Rate FiO2 11/10/20 11:20 37.0 95 16 157/69 (98) 97 Room Air 11/10/20 08:00 Room Air 11/10/20 07:35 36.4 87 18 151/69 (96) 98 Room Air 11/10/20 04:37 36.8 98 16 148/54 (85) 100 Room Air 11/10/20 01:16 36.8 87 16 137/67 95 Room Air 11/10/20 01:10 36.8 87 16 137/67 96 Room Air 11/10/20 00:34 36.6 88 20 146/65 (92) 96 Room Air 11/09/20 22:51 36.6 86 18 126/61 95 Room Air 11/09/20 22:30 36.2 95 16 139/63 94 Room Air 11/09/20 20:45 95 Room Air 11/09/20 19:47 37.2 97 18 127/58 (81) 98 Room Air 11/09/20 18:43 97 Room Air 11/09/20 16:04 36.8 90 18 134/60 (84) 96 Room Air 11/09/20 14:54 98 Room Air I & O 11/10/20 07:00 Intake Total 1070 ml Output Total 435 ml Balance 635 ml Capillary Refill : Less Than 3 Seconds General Appearance: No Apparent Distress HEENT: PERRL/EOMI Neck: Full Range of Motion Respiratory: Chest Non Tender, Rhonci, Wheezing Cardiovascular: Regular Rate, Rhythm Gastrointestinal: normal bowel sounds, non tender, soft Extremity: Normal Capillary Refill Neurologic/Psychiatric: Alert, Oriented x3 Skin: Normal Color Lymphatic: No Adenopathy Results Lab Laboratory Tests 11/09/20 17:02: Glucometer 239H 11/09/20 20:30: Hemoglobin 6.6#*L, Hematocrit 22L 11/10/20 00:33: Glucometer 311H 11/10/20 06:17: Glucometer 168H 11/10/20 07:00: White Blood Count 15.4H, Red Blood Count 2.84L, Hemoglobin 8.2#L, Hematocrit 27L , Mean Corpuscular Volume 94, Mean Corpuscular Hemoglobin 29, Mean Corpuscular Hemoglobin Concent 31L, Red Cell Distribution Width 17.3H, Platelet Count 374, Mean Platelet Volume 9.2, Immature Granulocyte % (Auto) 1, Neutrophils (%) (Auto) 72, Lymphocytes (%) (Auto) 10L, Monocytes (%) (Auto) 5, Eosinophils (%) (Auto) 11H, Basophils (%) (Auto) 1, Neutrophils # (Auto) 11.1H, Lymphocytes # (Auto) 1.6, Monocytes # (Auto) 0.7, Eosinophils # (Auto) 1.7H, Basophils # (Auto) 0.2H, Immature Granulocyte # (Auto) 0.1, Sodium Level 139, Potassium Level 5.1H, Chloride Level 107, Carbon Dioxide Level 26, Anion Gap 6, Blood Urea Nitrogen 27H, Creatinine 1.25, Estimat Glomerular Filtration Rate 44, BUN/Creatinine Ratio 22, Glucose Level 207H, Calcium Level 6.9L, Corrected Calcium 8.3L, Total Bilirubin 0.3, Aspartate Amino Transf (AST/SGOT) 76H, Alanine Aminotransferase (ALT/SGPT) 72H, Alkaline Phosphatase 245H, Total Protein 4.4L, Albumin 2.3L 11/10/20 11:03: Glucometer 331H Microbiology 11/09/20 C. difficile GDH Antigen & Toxins - Final, Complete 11/09/20 Blood Culture - Preliminary, Resulted No growth Assessment/Plan Assessment/Plan Assess & Plan/Chief Complaint C. diff colitis. cont vanco qid at least 10 days. monitor Hb. NAKUL YUEN MD November 10, 2020 12:29
[2020-11-10] MEDS: RT-ALBUTEROL/IPRATROPIUM 3 ML (DUONEB) VIAL INH PRN (15:16)
[2020-11-10] MEDS ORDERED: HYOSCYAMINE 0.125 MG (LEVSIN) TAB ONE (19:36)
[2020-11-10] MEDS: HYOSCYAMINE 0.125 MG (LEVSIN) TAB PO PRN (19:43)
[2020-11-11 00:29] VITALS: BP 131/61
[2020-11-11 03:38] VITALS: BP 167/75
[2020-11-11] MEDS: morphine INJ 4 MG/ML 1 ML (VIAL/SYRINGE) IV PRN ×4 (03:40→22:57)
[2020-11-11] MEDS: NS IV 1000 ML 1,000 ML IV SCH ×2 (03:42→17:30)
[2020-11-11 05:18] LABS: BASOPHILS # (AUTO) 0.1 10^3/uL (0.0-0.1); BASOPHILS % (AUTO) 1 % (0-10); EOSINOPHILS # (AUTO) 1.8 10^3/uL (0.0-0.3); EOSINOPHILS % (AUTO) 12 % (0-10); HEMATOCRIT 25 % (35-52); LYMPHOCYTES # (AUTO) 1.7 10^3/uL (1.0-4.0); LYMPHOCYTES % (AUTO) 11 % (12-44); MEAN CORPUSCULAR HEMOGLOBIN 29 pg (25-34); MEAN CORPUSCULAR HGB CONC 32 g/dL (32-36); MEAN CORPUSCULAR VOLUME 92 fL (80-99); MEAN PLATELET VOLUME 9.1 fL (9.0-12.2); MONOCYTES # (AUTO) 0.8 10^3/uL (0.0-1.0); MONOCYTES % (AUTO) 5 % (0-12); NEUTROPHILS # (AUTO) 10.9 10^3/uL (1.8-7.8); NEUTROPHILS % (AUTO) 71 % (42-75); PLATELET COUNT 365 10^3/uL (130-400); WHITE BLOOD COUNT 15.4 10^3/uL (4.3-11.0)
[2020-11-11 05:27] LABS: ALBUMIN 2.3 GM/DL (3.2-4.5); POTASSIUM 4.6 MMOL/L (3.6-5.0)
[2020-11-11 05:28] LABS: CALCIUM 7.4 MG/DL (8.5-10.1)
[2020-11-11 05:30] LABS: TOTAL PROTEIN 4.5 GM/DL (6.4-8.2)
[2020-11-11 05:31] LABS: BILIRUBIN,TOTAL 0.2 MG/DL (0.1-1.0)
[2020-11-11 05:33] LABS: CREATININE SERUM 1.33 MG/DL (0.60-1.30)
[2020-11-11] MEDS: HYOSCYAMINE 0.125 MG (LEVSIN) TAB PO PRN ×3 (06:19→17:29)
[2020-11-11] MEDS: inSUlin ASPART (NovoLOG) 1 UNIT/0.01 ML (CHARGE PER UNIT) SC SCH ×3 (06:19→18:08)
[2020-11-11] MEDS: PIPERACILLIN/TAZO 4.5 GM/NS 100 ML IV SCH ×2 (06:19)
[2020-11-11 07:40] VITALS: BP 162/75
[2020-11-11] MEDS: VANCOMYCIN 125 MG CAPSULE PO SCH ×4 (09:28→20:51)
--- NOTE | 2020-11-11 10:39 | Consultation - Hospitalist ---
HPI History of Present Illness: HPI/Chief Complaint Pt is a 60yoCF with a PMH of IDDMI, hypothyroidism who presented to the ER due to abdominal pain. She recently had a lap cholecystectomy and has been readmitted for c diff colitis. I am consulted for medical management. She reports her blood sugars have been very high but that she has not been getting h is levemir. Otherwise her only concern is about her abdominal pain and her ABEBE drain. Source: patient Exam Limitations: no limitations Date Seen 11/11/20 Attending Physician Benedict Haynes MD PCP Phillip Sanchez MD Referring Physician Date of Admission November 09, 2020 at 01:03 Home Medications & Allergies Home Medications Reviewed patient Home Medication Reconciliation performed by pharmacy medication reconciliations metallurgy laboratory technician and/or nursing. Patients Allergies have been reviewed. Allergies Allergies Coded Allergies ciprofloxacin (Verified Allergy, Mild, redness and itching , 12/04/18) redness and itching at iv site Patient Social History Marrital Status: Employed/Student: employed Tobacco Use?: Yes Tobacco type used: Cigarettes Smoking Status: Current Everyday Smoker Use of E-Cig and/or Vaping dev: No Substance use?: No Alcohol Use?: No Pt stated abuse/neglect: No Immunizations Up To Date Influenza Vaccine Up-to-Date: Yes; Up-to-Date Tetanus Booster (TDap): Unknown Hepatitis A: No Hepatitis B: No TB Skin Test: None Date of Pneumonia Vaccine: Apr 02, 2013 Current Status status: No Do you have an Advance Directi: No Communicates: Points, Verbally Primary Language: Spanish Is interpretation needed?: No Sensory deficits: Vision impairment, Hearing impairment Implanted or Applied Medical D: Port-a-cath Past Medical History T1DM on insulin CKD3 Family Medical History Family Hx: PSH: -RIGHT ILIAC ARTERY STENT -4 VESSEL CABG 12/2015 -RIGHT CAROTID ENDARTERECTOMY 12/2015 -TONSILLECTOMY -HYSTERECTOMY/BSO -LAPAROSCOPIC RENETTA FUNDOPLICATION -CERVICAL SPINE FUSION Review of Systems Constitutional: No chills; fever; No malaise EENTM: no symptoms reported Respiratory: No cough, No short of breath Cardiovascular: No chest pain, No edema, No palpitations Gastrointestinal: abdominal pain; No diarrhea; melena Genitourinary: no symptoms reported Musculoskeletal: no symptoms reported Skin: no symptoms reported Psychiatric/Neurological: No Symptoms Reported Physical Exam Physical Exam Vital Signs Vital Signs - First Documented 11/08/20 11/09/20 11/09/20 23:25 02:17 03:24 Temp 36.8 Pulse 109 Resp 18 B/P (MAP) 171/72 (105) Pulse Ox 99 O2 Delivery Room Air FiO2 21 Capillary Refill : Less Than 3 Seconds Height, Weight, BMI Height: 5'5.00" Weight: 125lbs. 0.0oz. 56.076152vo; 20.15 BMI Method:Stated General Appearance: No Apparent Distress, Chronically ill, Thin HEENT: PERRL/EOMI, Moist Mucous Membranes; No Scleral Icterus (L), No Scleral Icterus (R) Neck: Normal Inspection, Supple Respiratory: Lungs Clear, No Accessory Muscle Use, No Respiratory Distress Cardiovascular: Regular Rate, Rhythm, Normal Peripheral Pulses, Systolic Murmur Gastrointestinal: Normal Bowel Sounds, Distended; No Guarding, No Rebound; Tenderness (diffuse and slight to palpation) Extremity: Normal Capillary Refill, No Calf Tenderness, No Pedal Edema Neurologic/Psychiatric: Alert, Oriented x3, Normal Mood/Affect Skin: Normal Color Lymphatic: No Adenopathy Results Results/Procedures Labs Laboratory Tests 11/09/20 20:30 11/10/20 07:00 11/11/20 04:55 Patient resulted labs reviewed. Imaging: Reviewed Imaging Report Imaging [facility], [place] NAME: [facility] REC#: [id number] PT STATUS: ADM Barb : 1960 PHYSICIAN: SANIA HYDE MD ADMIT DATE: 11/09/20 Signed Date of Exam:11/09/20 CT ABDOMEN/PELVIS WO CT ABDOMEN/PELVIS WO TECHNIQUE: Unenhanced CT imaging of the abdomen and pelvis was performed. 2-D reformats are created and submitted for interpretation. Automatic exposure controls were utilized to optimize patient dose. INDICATION: Severe abdominal pain, 2 weeks status post cholecystectomy. COMPARISON: CT abdomen and pelvis of 10/18/2020 FINDINGS: Evaluation of the abdominal viscera is mildly limited without contrast. Lower chest: Right basilar linear atelectasis. Otherwise, lung bases are clear. Peritoneum: A peritoneal dialysis catheter has tip terminating in the left lower quadrant. No unexpected fluid collection or free intraperitoneal air. Liver and biliary system: Unenhanced liver is normal. Cholecystectomy. No fluid question within the gallbladder fossa. Spleen and Pancreas: Spleen is normal. Unenhanced pancreas is grossly normal. Adrenals: Normal. tract: No renal or ureteral calculi. No obstructive uropathy. Urinary bladder is normally filled without wall thickening. Status post hysterectomy. GI tract: Stomach is moderately distended with fluid and food debris. There are also a few scattered sites of air within the stomach. No bowel obstruction. No pericolonic inflammatory changes. The appendix is not seen but there are no features of acute appendicitis. Vasculature and Lymph nodes: Normal caliber aorta with extensive atherosclerotic plaquing. No abdominal or pelvic lymphadenopathy. Musculoskeletal: No concerning osseous lesion. Mild subcutaneous edema within the lower abdominal wall. IMPRESSION: 1. Status post cholecystectomy. No fluid collection within the gallbladder fossa to indicate abscess. 2. Moderate distention of the stomach with fluid and food debris. No bowel obstruction. 3. Well-positioned peritoneal dialysis catheter. No fluid collection around the tip of the catheter. 4. No renal or ureteral stones. 5. Findings are in agreement with the preliminary report. Dictated by: Dictated on workstation # [id number] Dict: 11/09/20 0634 Trans: 11/09/20 0856 DARON [id number] Interpreted by: ALICIA OBREGON MD Electronically signed by: ALICIA OBREGON MD 11/09/20 0856 Assessment/Plan Assessment and Plan Assess & Plan/Chief Complaint C diff colitis s/p laparoscopic cholecystectomy on 10/22 Acute blood loss anemia Continue on oral vanc ABEBE drain in place Management per primary Morphine for pain Hemoglobin stable now s/p 1 unit pRBCs, trend Fever Marroquin cultures ordered On Zosyn (though DC-ed by Dr Haynes this am due to her c diff, if continues to fever will resume) CXR ordered IDDMI Diabetic peripheral neuropathy Resume home levemir Continue sliding scale Resume home gabapentin CAD s/p CABG Hold ASA/Plavix for bloody stools and anemia CKD stage 3a Creatinine stable Trend DVT ppx: Lovenox on hold for anemia/GI bleed, ambulatory in room DAWSON DEL ROSARIO MD November 11, 2020 10:39
[2020-11-11 11:52] VITALS: BP 159/70
--- NOTE | 2020-11-11 12:11 | Diagnostic Imaging Report ---
INDICATION: Fever. COMPARISON: 11/09/2020 FINDINGS: Single frontal view of the chest demonstrates borderline enlargement of the cardiac silhouette. Pulmonary vasculature is within normal limits. Sternotomy wires and left subclavian Port-A-Cath are again noted. The lungs are well aerated and clear. No large pleural effusion or pneumothorax is seen. The visualized osseous structures show no acute abnormalities. IMPRESSION: 1. Borderline prominence of cardiac silhouette, which may be exaggerated by portable technique. There is otherwise no evidence of failure or focal infiltrate. Dictated by: Dictated on workstation # [id number]
[2020-11-11] MEDS ORDERED: HYDR-3817 PO (14:49)
[2020-11-11] MEDS ORDERED: VANC125C5 PO (14:49)
--- NOTE | 2020-11-11 14:50 | Discharge Inst-Surgical ---
D/C Lap Instructions-KIDO New, Converted, or Re-Newed RX: RX on Chart Follow Up Appt in 2 weeks Activity as tolerated Avoid Alcohol, Caffeine, Spicy [place] and Acid foods. Drink 64 fluid oz or more of fluids per day. Symptoms to Report: Fever over 101 degree F, Nausea/Vomiting If any problems/questions: Contact your physician or go to Emergency Room NAKUL YUEN MD November 11, 2020 14:50
[2020-11-11 15:29] LABS: BILIRUBIN,URINE NEGATIVE (NEGATIVE); COLOR,URINE YELLOW; GLUCOSE, URINE (UA) 3+ (NEGATIVE); KETONES,URINE TRACE (NEGATIVE); LEUKOCYTE ESTERASE ,URINE TRACE (NEGATIVE); NITRITE,URINE NEGATIVE (NEGATIVE); PROTEIN,URINE 2+ (NEGATIVE)
[2020-11-11 15:53] LABS: CLARITY,URINE SL CLOUDY
[2020-11-11 15:54] LABS: BACTERIA,URINE TRACE /HPF; RBC,URINE RARE /HPF
[2020-11-11 16:07] VITALS: BP 131/61
[2020-11-11 19:59] VITALS: BP 148/67
[2020-11-11] MEDS: busPIRone 5 MG (BUSPAR) TAB PO SCH (20:51)
[2020-11-11] MEDS ORDERED: GABAPENTIN 100 MG (NEURONTIN) CAP PO SCH (21:00)
[2020-11-12] MEDS: inSUlin ASPART (NovoLOG) 1 UNIT/0.01 ML (CHARGE PER UNIT) SC SCH ×3 (00:04→13:37)
[2020-11-12 00:10] VITALS: BP 136/65
[2020-11-12] MEDS ORDERED: DEXTROSE 50% 50 ML (IMS) SYR ONE (00:25)
[2020-11-12] MEDS ORDERED: DEXTROSE 50% 50 ML (IMS) SYR IV ONE (00:45)
[2020-11-12] MEDS: morphine INJ 4 MG/ML 1 ML (VIAL/SYRINGE) IV PRN ×3 (02:33→11:44)
[2020-11-12] MEDS ORDERED: D5 NS 1000 ML IV SOLUTION 1,000 ML IV ONE (02:42)
[2020-11-12] MEDS: HYOSCYAMINE 0.125 MG (LEVSIN) TAB PO PRN ×2 (02:53→08:43)
[2020-11-12] MEDS ORDERED: D5 NS 1000 ML IV SOLUTION 1,000 ML IV SCH (03:00)
[2020-11-12 03:31] VITALS: BP 152/68
[2020-11-12 06:09] LABS: HEMOGLOBIN 8.7 g/dL (11.5-16.0); MEAN PLATELET VOLUME 9.1 fL (9.0-12.2); WHITE BLOOD COUNT 15.3 10^3/uL (4.3-11.0)
[2020-11-12 06:29] LABS: POTASSIUM 4.4 MMOL/L (3.6-5.0)
[2020-11-12] MEDS ORDERED: LEVOTHYROXINE 125 MCG (LEVOTHROID) TABLET PO SCH (06:30)
[2020-11-12] MEDS ORDERED: LEVOTHYROXINE 50 MCG (LEVOTHROID) TAB PO SCH (06:30)
[2020-11-12 06:31] LABS: CALCIUM 7.5 MG/DL (8.5-10.1)
[2020-11-12 06:35] LABS: CREATININE SERUM 1.1 MG/DL (0.60-1.30)
[2020-11-12 08:00] VITALS: BP 181/78
[2020-11-12] MEDS ORDERED: PARoxetine 20 MG (PAXIL) TAB PO SCH (09:00)
[2020-11-12] MEDS ORDERED: PANTOPRAZOLE 40 MG (PROTONIX) TAB PO SCH (09:00)
[2020-11-12] MEDS: busPIRone 5 MG (BUSPAR) TAB PO SCH (09:12)
[2020-11-12] MEDS: VANCOMYCIN 125 MG CAPSULE PO SCH ×2 (09:12→13:37)
[2020-11-12] MEDS ORDERED: HYOS-19 SL (10:20)
--- NOTE | 2020-11-12 10:36 | Progress Note - Hospitalist ---
Subjective HPI/CC On Admission Date Seen by Provider: November 12, 2020 Time Seen by Provider: 10:32 Pt is a 60yoCF with a PMH of IDDMI, hypothyroidism who presented to the ER due to abdominal pain. She recently had a lap cholecystectomy and has been readmitted for c diff colitis. I am consulted for medical management. She reports her blood sugars have been very high but that she has not been getting his levemir. Otherwise her only concern is about her abdominal pain and her ABEBE drain. Subjective/Events-last exam Pt reports feeling ok today. Pain is controlled and about the same. BS was a litrle low this morning. DC-ed morning levemir. RN brought up right leg swelling as well. Discussed plan for usg. I called and updated Dr Haynes to my plan as well. Focused Exam Lactate Level 11/11/20 11:40: Lactic Acid Level 0.79 Objective Exam Vital Signs Vital Signs Date Time Temp Pulse Resp B/P (MAP) Pulse Ox O2 Delivery O2 Flow Rate FiO2 11/12/20 09:18 Room Air 11/12/20 08:00 36.8 92 18 181/78 (112) 97 11/09/20 03:24 21 Capillary Refill : Less Than 3 Seconds General Appearance: No Apparent Distress, WD/WN Respiratory: Lungs Clear, No Respiratory Distress Cardiovascular: Regular Rate, Rhythm, No Murmur Gastrointestinal: Other (ABEBE drain in place, distended, mild tenderness to palptation diffusely- unchanged from yesterday) Neurologic/Psychiatric: Alert, Oriented x3 Results/Procedures Lab Laboratory Tests 11/12/20 05:59 Patient resulted labs reviewed. Imaging: Reviewed Imaging Report Assessment/Plan Assessment and Plan Assess & Plan/Chief Complaint C diff colitis s/p laparoscopic cholecystectomy on 10/22 Acute blood loss anemia Continue on oral vanc ABEBE drain in place Management per primary Morphine for pain Hemoglobin stable now s/p 1 unit pRBCs, trend Right leg swelling doppler ordered Fever Temperature recorded yesterday was a typo No actual fever IDDMI Diabetic peripheral neuropathy DC morning levemir, continue nightly levemir Continue sliding scale Resume home gabapentin CAD s/p CABG Hold ASA/Plavix for bloody stools and anemia CKD stage 3a Creatinine stable Trend DVT ppx: Lovenox on hold for anemia/GI bleed, ambulatory in room DAWSON DEL ROSARIO MD November 12, 2020 10:36
[2020-11-12] MEDS: RT-ALBUTEROL/IPRATROPIUM 3 ML (DUONEB) VIAL INH PRN (11:12)
[2020-11-12 11:46] VITALS: BP 139/63
--- NOTE | 2020-11-12 11:57 | Discharge Inst-Surgical ---
D/C Lap Instructions-KIDO New, Converted, or Re-Newed RX: RX on Chart Follow Up next week sunday(10/20) at 11am Activity as tolerated Avoid Alcohol, Caffeine, Spicy [place] and Acid foods. Drink 64 fluid oz or more of fluids per day. Symptoms to Report: Fever over 101 degree F, Nausea/Vomiting If any problems/questions: Contact your physician or go to Emergency Room NAKUL YUEN MD November 12, 2020 11:57
--- NOTE | 2020-11-12 11:59 | Progress Note ---
Subjective Date Seen by a Provider: November 12, 2020 Time Seen by a Provider: 11:30 Subjective/Events-last exam doing well. no diarrhea/blood per rectum nor BM. Hb stable. tolerating diet. pain controlled. Focused Exam Lactate Level 11/11/20 11:40: Lactic Acid Level 0.79 Objective Exam Vital Signs Date Time Temp Pulse Resp B/P (MAP) Pulse Ox O2 Delivery O2 Flow Rate FiO2 11/12/20 11:46 36.5 103 20 139/63 (88) 100 Room Air 11/12/20 11:12 99 Room Air 11/12/20 09:18 Room Air 11/12/20 08:00 36.8 92 18 181/78 (112) 97 Room Air 11/12/20 03:31 36.4 86 18 152/68 (96) 100 Room Air 11/12/20 00:10 36.4 85 17 136/65 (88) 96 Room Air 11/11/20 20:00 Room Air 11/11/20 19:59 36.4 88 16 148/67 (94) 96 Room Air 11/11/20 16:07 37.0 83 18 131/61 (84) 97 Room Air I & O 11/12/20 07:00 Intake Total 2210 ml Output Total 2030 ml Balance 180 ml Capillary Refill : Less Than 3 Seconds General Appearance: No Apparent Distress HEENT: PERRL/EOMI Neck: Full Range of Motion Respiratory: Rhonci, Wheezing Cardiovascular: Regular Rate, Rhythm Gastrointestinal: normal bowel sounds, soft, tenderness Extremity: Normal Capillary Refill Neurologic/Psychiatric: Alert, Oriented x3 Skin: Normal Color Lymphatic: No Adenopathy Results Lab Laboratory Tests 11/11/20 13:12: Urine Color YELLOW, Urine Clarity SL CLOUDY, Urine pH 6.0, Urine Specific [place] 1.025H, Urine Protein 2+H, Urine Glucose (UA) 3+H, Urine Ketones TRACEH, Urine Nitrite NEGATIVE, Urine Bilirubin NEGATIVE, Urine Urobilinogen 0.2, Urine Leukocyte Esterase TRACEH, Urine RBC (Auto) TRACE-I, Urine RBC RARE, Urine WBC 5-10H, Urine Squamous Epithelial Cells 2-5, Urine Crystals NONE, Urine Bacteria TRACE, Urine Casts NONE, Urine Mucus NEGATIVE, Urine Culture Indicated YES 11/11/20 17:39: Glucometer 141H 11/11/20 23:54: Glucometer 51*L 11/12/20 00:29: Glucometer 42*L 11/12/20 01:21: Glucometer 89 11/12/20 02:25: Glucometer 57*L 11/12/20 03:29: Glucometer 73 11/12/20 04:30: Glucometer 106 11/12/20 05:17: Glucometer 113H 11/12/20 05:59: White Blood Count 15.3H, Red Blood Count 2.97L, Hemoglobin 8.7L, Hematocrit 28L, Mean Corpuscular Volume 93, Mean Corpuscular Hemoglobin 29, Mean Corpuscular Hemoglobin Concent 31L, Red Cell Distribution Width 16.9H, Platelet Count 379, Mean Platelet Volume 9.1, Sodium Level 139, Potassium Level 4.4, Chloride Level 106, Carbon Dioxide Level 26, Anion Gap 7, Blood Urea Nitrogen 17, Creatinine 1.10, Estimat Glomerular Filtration Rate 51, BUN/Creatinine Ratio 15, Glucose Level 110H, Calcium Level 7.5L 11/12/20 11:38: Glucometer 242H Microbiology 11/11/20 Urine Culture - Final, Complete NO GROWTH 11/09/20 C. difficile GDH Antigen & Toxins - Final, Complete 11/09/20 Blood Culture - Preliminary, Resulted No growth Assessment/Plan Assessment/Plan Assess & Plan/Chief Complaint C. diff colitis. cont vanco qid at least 10 days. home soon, f/u in office next week sunday at 11am. NAKUL YUEN MD November 12, 2020 11:59
--- NOTE | 2020-11-12 12:36 | Diagnostic Imaging Report ---
PROCEDURE: US right lower extremity venous. TECHNIQUE: Multiple real-time grayscale images were obtained over the right lower extremity in various projections. Additional spectral analysis and color Doppler duplex images were also obtained. INDICATION: Right large extremity swelling. There is no evidence of right lower extremity DVT. Right lower extremity deep venous system shows normal compressibility with normal response to augmentation and Valsalva. There is a cyst in the popliteal fossa measuring 3.0 x 1.4 x 1.9 cm suggestive of a Armstrong's cyst. IMPRESSION: 1. No evidence of right lower extremity DVT. 2. Armstrong's cyst. Dictated by: Dictated on workstation # [id number]
[2020-11-12 16:45] VITALS: BP 139/63
== END 2020-11-12 16:45 | disposition home or self-care (01) | DRG 372 ==
LOC: EDUNIT# 23:05 → ER 23:09 → OBSVTOIN 11-09 01:03 → 4TH 11-09 01:03
PROVIDERS: ADMIT Surgery; ATTEND Surgery
DX: A04.72 Enterocolitis due to Clostridium difficile, not specified as recurrent (principal); N17.9 Acute kidney failure, unspecified; D62 Acute posthemorrhagic anemia; I12.9 Hypertensive chronic kidney disease with stage 1 through stage 4 chronic kidney disease, or unspecified chronic kidney disease; E10.22 Type 1 diabetes mellitus with diabetic chronic kidney disease; K21.9 Gastro-esophageal reflux disease without esophagitis; E86.0 Dehydration; J44.9 Chronic obstructive pulmonary disease, unspecified; I25.10 Atherosclerotic heart disease of native coronary artery without angina pectoris; F32.9 Major depressive disorder, single episode, unspecified; E03.9 Hypothyroidism, unspecified; E78.00 Pure hypercholesterolemia, unspecified; N18.31 Chronic kidney disease, stage 3a; E10.51 Type 1 diabetes mellitus with diabetic peripheral angiopathy without gangrene; E10.40 Type 1 diabetes mellitus with diabetic neuropathy, unspecified; M79.89 Other specified soft tissue disorders; F17.210 Nicotine dependence, cigarettes, uncomplicated; G43.909 Migraine, unspecified, not intractable, without status migrainosus; G89.29 Other chronic pain; M54.9 Dorsalgia, unspecified; M19.90 Unspecified osteoarthritis, unspecified site; Z98.1 Arthrodesis status; F41.9 Anxiety disorder, unspecified; Z85.038 Personal history of other malignant neoplasm of large intestine; Z90.49 Acquired absence of other specified parts of digestive tract; Z95.1 Presence of aortocoronary bypass graft; Z95.820 Peripheral vascular angioplasty status with implants and grafts; Z88.1 Allergy status to other antibiotic agents; Z79.82 Long term (current) use of aspirin; Z79.4 Long term (current) use of insulin; Z79.899 Other long term (current) drug therapy
CPT/HCPCS: 36415; 71045; 74176; 80048; 80053; 81000; 82274; 82947; 83605; 84145; 85007; 85014; 85018; 85025; 85027; 86850; 86900; 86901; 86920; 87040; 87088; 87324; 87449; 94640; 94760

== ENCOUNTER 2020-12-21 13:08 | Outpatient (CLI) | payer OTHER ==
[~2020-12-21 13:08] MED LIST changes: +DOCU-143 PO; +HYDR-3817 PO; +HYOS-19 SL; +INSU100V42 SC; +ONDA8TAB15 PO; +PANT40TA52 PO; +VANC125C5 PO
[2020-12-21 13:20] VITALS: BP 159/81
[2020-12-21 13:35] LABS: BASOPHILS # (AUTO) 0.2 10^3/uL (0.0-0.1); BASOPHILS % (AUTO) 1 % (0-10); EOSINOPHILS # (AUTO) 0.5 10^3/uL (0.0-0.3); EOSINOPHILS % (AUTO) 4 % (0-10); HEMATOCRIT 34 % (35-52); HEMOGLOBIN 10.8 g/dL (11.5-16.0); LYMPHOCYTES # (AUTO) 2.3 10^3/uL (1.0-4.0); LYMPHOCYTES % (AUTO) 17 % (12-44); MEAN CORPUSCULAR HEMOGLOBIN 29 pg (25-34); MEAN CORPUSCULAR HGB CONC 32 g/dL (32-36); MEAN CORPUSCULAR VOLUME 90 fL (80-99); MEAN PLATELET VOLUME 9.4 fL (9.0-12.2); MONOCYTES # (AUTO) 0.7 10^3/uL (0.0-1.0); MONOCYTES % (AUTO) 5 % (0-12); NEUTROPHILS # (AUTO) 9.9 10^3/uL (1.8-7.8); NEUTROPHILS % (AUTO) 73 % (42-75); PLATELET COUNT 405 10^3/uL (130-400); WHITE BLOOD COUNT 13.5 10^3/uL (4.3-11.0)
[2020-12-21 14:03] LABS: ALBUMIN 3.2 GM/DL (3.2-4.5); BILIRUBIN,TOTAL 0.3 MG/DL (0.1-1.0); CALCIUM 8.1 MG/DL (8.5-10.1); CREATININE SERUM 1.4 MG/DL (0.60-1.30); POTASSIUM 4.8 MMOL/L (3.6-5.0); TOTAL PROTEIN 6.4 GM/DL (6.4-8.2)
== END 2020-12-21 13:35 ==
LOC: SDC 13:08
PROVIDERS: ATTEND Internal Medicine
DX: D64.9 Anemia, unspecified (principal); E11.9 Type 2 diabetes mellitus without complications; E78.2 Mixed hyperlipidemia; I10 Essential (primary) hypertension; Z79.899 Other long term (current) drug therapy
CPT/HCPCS: 36415; 36591; 80053; 85025

== ENCOUNTER 2021-01-25 10:30 | Outpatient (CLI) | payer OTHER ==
[~2021-01-25] VITALS: Ht 152 cm; Wt 56.2 kg
[2021-01-25 10:35] VITALS: BP 152/67
[2021-01-25 11:04] LABS: BASOPHILS # (AUTO) 0.1 10^3/uL (0.0-0.1); BASOPHILS % (AUTO) 1 % (0-10); EOSINOPHILS # (AUTO) 0.4 10^3/uL (0.0-0.3); EOSINOPHILS % (AUTO) 3 % (0-10); HEMATOCRIT 35 % (35-52); HEMOGLOBIN 11.2 g/dL (11.5-16.0); LYMPHOCYTES # (AUTO) 2.1 10^3/uL (1.0-4.0); LYMPHOCYTES % (AUTO) 14 % (12-44); MEAN CORPUSCULAR HEMOGLOBIN 28 pg (25-34); MEAN CORPUSCULAR HGB CONC 32 g/dL (32-36); MEAN CORPUSCULAR VOLUME 87 fL (80-99); MEAN PLATELET VOLUME 9.7 fL (9.0-12.2); MONOCYTES # (AUTO) 0.8 10^3/uL (0.0-1.0); MONOCYTES % (AUTO) 6 % (0-12); NEUTROPHILS # (AUTO) 11.3 10^3/uL (1.8-7.8); NEUTROPHILS % (AUTO) 76 % (42-75); PLATELET COUNT 418 10^3/uL (130-400); WHITE BLOOD COUNT 14.9 10^3/uL (4.3-11.0)
[2021-01-25 11:29] LABS: EOSINOPHILS % (MANUAL) 2 %; HYPOCHROMASIA SLIGHT; LYMPHOCYTES % (MANUAL) 15 %; MONOCYTES % (MANUAL) 5 %; NEUTROPHILS % (MANUAL) 78 %
[2021-01-25 11:43] LABS: ALBUMIN 3.2 GM/DL (3.2-4.5); BILIRUBIN,TOTAL 0.2 MG/DL (0.1-1.0); CALCIUM 8.1 MG/DL (8.5-10.1); CREATININE SERUM 1.94 MG/DL (0.60-1.30); POTASSIUM 4.5 MMOL/L (3.6-5.0); TOTAL PROTEIN 6.7 GM/DL (6.4-8.2)
== END 2021-01-25 11:00 ==
LOC: SDC 10:30
PROVIDERS: ATTEND Physician Assistant
DX: D72.829 Elevated white blood cell count, unspecified (principal); E10.22 Type 1 diabetes mellitus with diabetic chronic kidney disease; N18.9 Chronic kidney disease, unspecified
CPT/HCPCS: 36415; 36591; 80053; 85007; 85027

== ENCOUNTER 2021-02-02 13:46 | Outpatient (CLI) | payer OTHER ==
[~2021-02-02] VITALS: Ht 152 cm; Wt 56.2 kg
[2021-02-02 14:35] VITALS: BP 180/92
[2021-02-02 14:48] LABS: ALBUMIN 3.3 GM/DL (3.2-4.5); POTASSIUM 4.1 MMOL/L (3.6-5.0)
[2021-02-02 14:49] LABS: CALCIUM 8.4 MG/DL (8.5-10.1)
[2021-02-02 14:51] LABS: TOTAL PROTEIN 6.8 GM/DL (6.4-8.2)
[2021-02-02 14:52] LABS: ABSOLUTE RETIC # 68 10e9/uL (24-90); BASOPHILS # (AUTO) 0.2 10^3/uL (0.0-0.1); BASOPHILS % (AUTO) 1 % (0-10); BILIRUBIN,TOTAL 0.2 MG/DL (0.1-1.0); EOSINOPHILS # (AUTO) 0.4 10^3/uL (0.0-0.3); EOSINOPHILS % (AUTO) 3 % (0-10); HEMATOCRIT 38 % (35-52); HEMOGLOBIN 11.7 g/dL (11.5-16.0); LYMPHOCYTES % (AUTO) 20 % (12-44); MEAN CORPUSCULAR HEMOGLOBIN 27 pg (25-34); MEAN CORPUSCULAR HGB CONC 31 g/dL (32-36); MEAN CORPUSCULAR VOLUME 86 fL (80-99); MEAN PLATELET VOLUME 9.7 fL (9.0-12.2); MONOCYTES # (AUTO) 0.8 10^3/uL (0.0-1.0); MONOCYTES % (AUTO) 5 % (0-12); NEUTROPHILS # (AUTO) 10.2 10^3/uL (1.8-7.8); NEUTROPHILS % (AUTO) 70 % (42-75); PLATELET COUNT 472 10^3/uL (130-400); RETICULOCYTE % 1.53 % (0.50-2.40); WHITE BLOOD COUNT 14.7 10^3/uL (4.3-11.0)
[2021-02-02 14:54] LABS: CREATININE SERUM 1.52 MG/DL (0.60-1.30)
[2021-02-02 14:58] LABS: BAND NEUTROPHILS 0 %; BASOPHILS % (MANUAL) 0 %; EOSINOPHILS % (MANUAL) 2 %; LYMPHOCYTES % (MANUAL) 27 %; MONOCYTES % (MANUAL) 5 %; NEUTROPHILS % (MANUAL) 66 %
[2021-02-02 14:59] LABS: RBC MORPH NORMAL
== END 2021-02-02 14:25 | disposition home or self-care (01) ==
LOC: SDC 13:46
PROVIDERS: ATTEND Physician Assistant
DX: D64.9 Anemia, unspecified (principal); D72.829 Elevated white blood cell count, unspecified
CPT/HCPCS: 36415; 36591; 80053; 85007; 85027; 85045; 85055

== ENCOUNTER → 2021-02-08 | Outpatient (CLI) | payer OTHER ==
[2021-02-08 15:04] LABS: BILIRUBIN,URINE NEGATIVE (NEGATIVE); CLARITY,URINE CLEAR; COLOR,URINE YELLOW; GLUCOSE, URINE (UA) 3+ (NEGATIVE); KETONES,URINE NEGATIVE (NEGATIVE); LEUKOCYTE ESTERASE ,URINE TRACE (NEGATIVE); NITRITE,URINE NEGATIVE (NEGATIVE); PH,URINE 5.5 (5-9); PROTEIN,URINE 3+ (NEGATIVE)
[2021-02-08 15:32] LABS: BACTERIA,URINE MODERATE /HPF; RBC,URINE 25-50 /HPF; WBC,URINE TNTC /HPF
== END ==
LOC: LAB 14:47
PROVIDERS: ATTEND Internal Medicine
DX: N18.9 Chronic kidney disease, unspecified (principal); E11.9 Type 2 diabetes mellitus without complications
CPT/HCPCS: 81000; 82570; 84156

== ENCOUNTER → 2021-03-08 | Outpatient (CLI) | payer OTHER | LOC: CARD 08:20 | PROVIDERS: ATTEND Internal Medicine Cardiovascular Disease | DX: I08.3 Combined rheumatic disorders of mitral, aortic and tricuspid valves (principal) | CPT/HCPCS: 93306 ==

== ENCOUNTER → 2021-03-15 | Outpatient (CLI) | payer OTHER ==
[~2021-03-15] VITALS: Ht 165 cm; Wt 51.0 kg
[~2021-03-15] MED LIST changes: +CATHETER FLUSH 10 ML SYR IV PRN; +REGADENOSON 0.4 MG/5 ML SYR (LEXISCAN) IV ONE
[2021-03-15 09:10] VITALS: BP 143/83
[2021-03-15 09:19] VITALS: BP 117/71
--- NOTE | 2021-03-15 13:31 | STRESS TEST ---
DATE OF SERVICE: 03/15/2021 RESTING AND POST REGADENOSON TECHNETIUM-99M TETROFOSMIN SPECT CT IMAGING ORDERING PHYSICIAN: Dr. Jeffries. PRIMARY PHYSICIAN: Dr. Sanchez. CLINICAL DIAGNOSIS: Coronary artery disease. Baseline images were carried out after injection of 10.07 mCi of technetium-99m Tetrofosmin. This was followed by 0.4 mg Regadenoson and 29.7 mCi of technetium-99m Tetrofosmin for stress imaging. The electrocardiogram showed sinus rhythm at baseline. There was nonspecific T-wave abnormality. The electrocardiogram did not change significantly with the Regadenoson infusion. The patient tolerated the procedure well. Review of images at rest and following stress does not indicate any distinct perfusion defect consistent with significant myocardial ischemia or infarction. Gated images show normal global left ventricular systolic function with normal regional wall motion. Left ventricular ejection fraction is calculated to be 61%. CONCLUSIONS: 1. No evidence of any significant myocardial ischemia or infarction is seen. 2. Normal regional wall motion. 3. Normal global left ventricular systolic function with a calculated ejection fraction of 61%. Job ID: [id number] DocumentID: [id number] Dictated Date: 03/15/2021 13:23:29 Clinical Manager Date: 03/15/2021 13:30:28 Dictated By: THOMAS JEFFRIES MD, MA, FACP, FACC,
== END ==
LOC: CARD 07:22
PROVIDERS: ATTEND Internal Medicine Cardiovascular Disease
DX: I25.10 Atherosclerotic heart disease of native coronary artery without angina pectoris (principal)
CPT/HCPCS: 78452; 93017; A9502

== ENCOUNTER → 2021-03-15 | Outpatient (CLI) | payer OTHER ==
[~2021-03-15] MED LIST changes: -CATHETER FLUSH 10 ML SYR IV PRN; -REGADENOSON 0.4 MG/5 ML SYR (LEXISCAN) IV ONE
[2021-03-15 11:57] LABS: BILIRUBIN,URINE NEGATIVE (NEGATIVE); CLARITY,URINE CLEAR; COLOR,URINE YELLOW; GLUCOSE, URINE (UA) 2+ (NEGATIVE); KETONES,URINE NEGATIVE (NEGATIVE); LEUKOCYTE ESTERASE ,URINE NEGATIVE (NEGATIVE); NITRITE,URINE NEGATIVE (NEGATIVE); PROTEIN,URINE 3+ (NEGATIVE)
[2021-03-15 12:00] VITALS: BP 160/88
[2021-03-15 12:06] LABS: BACTERIA,URINE TRACE /HPF; WBC,URINE 25-50 /HPF; YEAST,URINE MODERATE /HPF
[2021-03-15 12:20] LABS: HEMATOCRIT 36 % (35-52); HEMOGLOBIN 11.3 g/dL (11.5-16.0); MEAN CORPUSCULAR HEMOGLOBIN 26 pg (25-34); MEAN CORPUSCULAR HGB CONC 31 g/dL (32-36); MEAN CORPUSCULAR VOLUME 85 fL (80-99); MEAN PLATELET VOLUME 9.9 fL (9.0-12.2); PLATELET COUNT 375 10^3/uL (130-400); WHITE BLOOD COUNT 11.9 10^3/uL (4.3-11.0)
[2021-03-15 12:32] LABS: ALBUMIN 3.2 GM/DL (3.2-4.5); CALCIUM 8.5 MG/DL (8.5-10.1); CREATININE SERUM 1.42 MG/DL (0.60-1.30); POTASSIUM 5.3 MMOL/L (3.6-5.0); URIC ACID 5.8 MG/DL (2.6-7.2)
[2021-03-16 13:08] LABS: URINE IMMUNOFIXATION W/ INTERP Complete
== END ==
LOC: SDC 10:37
PROVIDERS: ATTEND Nurse Practitioner
DX: N18.32 Chronic kidney disease, stage 3b (principal); R80.9 Proteinuria, unspecified
CPT/HCPCS: 36415; 36591; 80069; 81000; 82043; 82306; 83883; 83970; 84155; 84165; 84166; 84550; 85027; 86334; 86335; 87088

== ENCOUNTER 2021-03-17 10:39 | Emergency (ER) | payer OTHER ==
[~2021-03-17] VITALS: Ht 165.1 cm; Wt 49.4 kg
--- NOTE | 2021-03-17 11:13 | ED Abdominal Pain ---
General Stated Complaint: DEHYDRATION,CDIFF Source of Information: Patient Exam Limitations: No Limitations History of Present Illness Date Seen by Provider: Mar 17, 2021 Time Seen by Provider: 11:00 Initial Comments Patient is a 60-year-old female who presents to the emergency department today with a chief complaint of diarrhea, generalized weakness, high blood sugars, shortness of breath, dizziness with standing and movement. Patient had a history of C. difficile several months ago. She recently completed a round of Bactrim for a kidney infection on March 08. Went to her primary care doctor's office this morning for routine checkup and when she reported her symptoms was sent to the emergency department for suspicion of dehydration and possible return of her C. difficile. Patient denies any fevers or chills. She states her diarrhea started at about 3:00 in the morning yesterday and she had stools, small in quantity hourly. Nonblack nonbloody. No continuing dysuria, urgency or freque ncy. No real abdominal pain. She has been short of breath for a couple of days. She has had a cough that is productive of sputum. She is Covid vaccinated in July 2019. No known Covid exposures. All other review of systems reviewed and negative except as stated. Timing/Duration: 1-2 Days Severity/Quality: Cramping Associated Symptoms: Shortness of Air Allergies and Home Medications Allergies Coded Allergies: ciprofloxacin (Verified Allergy, Mild, redness and itching , 12/04/18) redness and itching at iv site Patient Home Medication List Home Medication List Reviewed: Yes Aspirin (Aspirin) 81 Mg Tab.chew, 81 MG PO DAILY, (Reported) Entered as Reported by: TALAT CASTELLANOS on 12/04/18 1404 Atorvastatin Calcium (Atorvastatin Calcium) 40 Mg Tablet, 40 MG PO HS, (Reported) Entered as Reported by: JUAN R PEDROZA on 11/09/20 1153 Buspirone HCl (Buspirone HCl) 5 Mg Tablet, 5 MG PO BID, (Reported) Entered as Reported by: EFE PATTERSON on 12/20/15 1348 Clopidogrel Bisulfate (Clopidogrel) 75 Mg Tablet, 75 MG PO DAILY, (Reported) Entered as Reported by: JUAN R PEDROZA on 09/03/20 1559 Docusate Sodium (Colace) 100 Mg Capsule, 100 MG PO DAILY PRN for CONSTIPATION- 1ST LINE, (Reported) Entered as Reported by: JUAN R PEDROZA on 11/09/20 1153 Gabapentin (Gabapentin) 100 Mg Capsule, 100 MG PO HS, (Reported) Entered as Reported by: EFE PATTERSON on 12/20/15 1348 Hydrocodone/Acetaminophen (Hydrocodone-Acetamin 7.5-325) 1 Each Tablet, 1 EA PO Q6H PRN for PAIN-MODERATE (5-7), (Reported) Entered as Reported by: JUAN R PEDROZA on 11/09/20 1153 Hydrocodone/Acetaminophen (Hydrocodone-Acetamin 7.5-325) 1 Each Tablet, 1 EACH PO Q4H Prescribed by: NAKUL YUEN on 11/11/20 1449 Hyoscyamine Sulfate (Hyoscyamine Sulfate) 0.125 Mg Tab.subl, 0.125 MG SL Q4H PRN for SPASMS Prescribed by: DAWSON DEL ROSARIO on 11/12/20 1020 Insulin Aspart (Insulin Aspart) 100 Unit/1 Ml Vial, 12 UNITS SC TIDAC, (Reported) Entered as Reported by: JUAN R PEDROZA on 11/09/20 1153 Insulin Determir (Levemir) 1,000 Units/10 Ml Soln, 10 UNITS SQ HS, (Reported) Entered as Reported by: JUAN R PEDROZA on 11/09/20 1153 Levothyroxine Sodium (Euthyrox) 175 Mcg Tablet, 175 MCG PO DAILY, (Reported) Entered as Reported by: JUAN R PEDROZA on 09/03/20 1559 Ondansetron HCl (Ondansetron HCl) 8 Mg Tablet, 8 MG PO Q8H PRN for NAUSEA/VOMITING-1ST LINE, (Reported) Entered as Reported by: JUAN R PEDROZA on 11/09/20 1153 Pantoprazole Sodium (Pantoprazole Sodium) 40 Mg Tablet.dr, 40 MG PO DAILY, (Rep orted) Entered as Reported by: JUAN R PEDROZA on 11/09/20 1153 Paroxetine HCl (Paroxetine HCl) 40 Mg Tablet, 40 MG PO DAILY, (Reported) Entered as Reported by: LUIS TOWNSEND on 11/30/15 1408 Polyethylene Glycol 3350 (Miralax) 17 Gm Powd.pack, 17 GM PO DAILY, (Reported) Entered as Reported by: MADDY DUNHAM on 10/21/20 1244 Vancomycin HCl (Vancomycin HCl) 125 Mg Capsule, 125 MG PO QID Prescribed by: NAKUL YUEN on 11/11/20 1449 Review of Systems Review of Systems Constitutional: see HPI EENTM: No Symptoms Reported Respiratory: Cough, SOA With Exertion, SOA at Rest Cardiovascular: No Symptoms Reported Gastrointestinal: Diarrhea, Poor Appetite Genitourinary: No Symptoms Reported Musculoskeletal: no symptoms reported Skin: no symptoms reported Psychiatric/Neurological: No Symptoms Reported All Other Systems Reviewed Negative Unless Noted: Yes Past Cttbtvz-Ccefdc-Rkhsoq Hx Immunizations Up To Date Tetanus Booster (TDap): Unknown PED Vaccines UTD: No Seasonal Allergies Seasonal Allergies: No Past Medical History Surgeries: Yes Abdominal, Cardiac, CABG, Gallbladder, 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, Oophorectomy, Orthopedic, Thyroidectomy, Vascular Surgery Respiratory: Yes COPD Currently Using CPAP: No Currently Using BIPAP: No Cardiac: Yes (RIGHT ILIAC STENT; 4 VESSEL CABG AND RIGHT CAROTID ENDARTERECTOMY 12/2015) Coronary Artery Disease, High Cholesterol, Hypertension, Peripheral Vascular Neurological: Yes Headaches /Migraines, Neuropathy Reproductive Disorders: No Female Reproductive Disorders: Denies 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, 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 Sexually Transmitted Disease: No HIV/AIDS: No Genitourinary: No Gastrointestinal: Yes Gastroesophageal Reflux, Chronic Constipation, Chronic Diarrhea, Hiatal Hernia Musculoskeletal: Yes (CHRONIC NECK PAIN--S/P CERVICAL FUSION) Degenerate Disk Disease, Chronic Back Pain Endocrine: Yes Diabetes, Insulin dep, Hypothyroidsim HEENT: No Loss of Vision: Denies Hearing Impairment: Denies Cancer: No Psychosocial: Yes Anxiety, Depression Integumentary: Yes (PREVIOUS ABCESSES) Blood Disorders: No Adverse Reaction/Blood Tranf: No Family Medical History Cancer G8 BROTHER, Onset:Unknown G8 BROTHER, Onset:Unknown Cancer of colon G8 BROTHER, Onset:Unknown Chest pain 19 MOTHER, Onset:Unknown Colon cancer Congestive heart failure 19 FATHER, Onset:60 years & older Family history: Alzheimer's disease 19 MOTHER, Onset:50's - 60 Family history: Arthritis 19 MOTHER, Onset:Unknown Family history: Asthma 19 FATHER, Onset:Unknown Family history: Cardiovascular disease 19 MOTHER, Onset:50's - 60 Family history: Coronary thrombosis 19 MOTHER, Onset:Unknown Family history: Diabetes mellitus 19 MOTHER, Onset:Unknown Family history: Hypertension 19 MOTHER, Onset:50's - 60 Family history: Thyroid disorder 19 MOTHER, Onset:50's - 60 Heart disease 19 MOTHER, Onset:50's - 60 Human immunodeficiency virus (HIV) seropositivity G8 BROTHER, Onset:40's - 50 Myocardial infarction 19 MOTHER, Onset:50's - 60 No Family History of: Abdominal aortic aneurysm Fidencio's disease Alcoholism Aphasia Cataract Congenital heart disease Cystic fibrosis Dementia Dysphagia Family history: Allergy Family history: Breast disease Family history: Gastrointestinal disease Family history: Glaucoma Family history: Osteoporosis Headache Hearing loss Hereditary disease History of - anemia History of - disorder History of - respiratory disease History of drug abuse Hypercholesterolemia Infertile Kidney disease Malignant neoplasm of lung Parkinson's disease Prostate cancer Psychotic disorder Seizure disorder Stroke Tuberculosis Visual impairment PSH: -RIGHT ILIAC ARTERY STENT -4 VESSEL CABG 12/2015 -RIGHT CAROTID ENDARTERECTOMY 12/2015 -TONSILLECTOMY -HYSTERECTOMY/BSO -LAPAROSCOPIC RENETTA FUNDOPLICATION -CERVICAL SPINE FUSION Physical Exam Vital Signs Vital Signs - First Documented 03/17/21 10:58 Pulse 97 Resp 16 B/P (MAP) 129/73 (91) Pulse Ox 98 O2 Delivery Room Air Capillary Refill : Height/Weight/BMI Height: 5'5.00" Weight: 125lbs. 0.0oz. 56.484257hz; 18.73 BMI Method:Stated General Appearance: no apparent distress HEENT: PERRL/EOMI Respiratory: lungs clear, normal breath sounds, no respiratory distress, no accessory muscle use Cardiovascular: regular rate, rhythm, systolic murmur Gastrointestinal: normal bowel sounds, non tender, soft Extremities: normal inspection, no pedal edema, no calf tenderness, normal capillary refill Neurologic/Psychiatric: alert, normal mood/affect, oriented x 3 Skin: normal color, warm/dry Progress/Results/Core Measures Results/Orders Lab Results Laboratory Tests Test 03/17/21 11:14 03/17/21 14:09 Range/Units White Blood Count 13.4 H 4.3-11.0 10^3/uL Red Blood Count 4.84 3.80-5.11 10^6/uL Hemoglobin 12.8 11.5-16.0 g/dL Hematocrit 41 35-52 % Mean Corpuscular Volume 85 80-99 fL Mean Corpuscular Hemoglobin 26 25-34 pg Mean Corpuscular Hemoglobin Concent 31 L 32-36 g/dL Red Cell Distribution Width 15.6 H 10.0-14.5 % Platelet Count 440 H 130-400 10^3/uL Mean Platelet Volume 9.8 9.0-12.2 fL Immature Granulocyte % (Auto) 2 % Neutrophils (%) (Auto) 73 42-75 % Lymphocytes (%) (Auto) 17 12-44 % Monocytes (%) (Auto) 5 0-12 % Eosinophils (%) (Auto) 2 0-10 % Basophils (%) (Auto) 1 0-10 % Neutrophils # (Auto) 9.7 H 1.8-7.8 10^3/uL Lymphocytes # (Auto) 2.3 1.0-4.0 10^3/uL Monocytes # (Auto) 0.7 0.0-1.0 10^3/uL Eosinophils # (Auto) 0.2 0.0-0.3 10^3/uL Basophils # (Auto) 0.2 H 0.0-0.1 10^3/uL Immature Granulocyte # (Auto) 0.2 H 0.0-0.1 10^3/uL Sodium Level 130 L 135-145 MMOL/L Potassium Level 5.2 H 3.6-5.0 MMOL/L Chloride Level 96 L 98-107 MMOL/L Carbon Dioxide Level 21 21-32 MMOL/L Anion Gap 13 5-14 MMOL/L Blood Urea Nitrogen 46 H 7-18 MG/DL Creatinine 2.20 H 0.60-1.30 MG/DL Estimat Glomerular Filtration Rate 23 BUN/Creatinine Ratio 21 Glucose Level 403 *H 70-105 MG/DL Calcium Level 9.1 8.5-10.1 MG/DL Corrected Calcium 9.7 8.5-10.1 MG/DL Total Bilirubin 0.5 0.1-1.0 MG/DL Aspartate Amino Transf (AST/SGOT) 21 5-34 U/L Alanine Aminotransferase (ALT/SGPT) 21 0-55 U/L Alkaline Phosphatase 168 H 40-136 U/L Total Protein 6.7 6.4-8.2 GM/DL Albumin 3.2 3.2-4.5 GM/DL SARS-CoV-2 RNA (RT-PCR) Not Detected Not Detecte Glucometer 263 H 70-110 MG/DL My Orders Orders - SANIA HYDE MD Ed Iv/Invasive Line Start (03/17/21 11:08) Cbc With Automated Diff (03/17/21 11:08) Comprehensive Metabolic Panel (03/17/21 11:08) C Difficile Ag + Toxin A/B. (03/17/21 11:08) Stool Culture (03/17/21 11:08) Covid 19 Inhouse Test (03/17/21 11:08) Chest 1 View, Ap/Pa Only (03/17/21 11:08) Isolation Central Supply Req (03/17/21 11:08) Isolation Central Supply Req (03/17/21 11:08) Ns Iv 1000 Ml (Sodium Chloride 0.9%) (03/17/21 11:15) Ns Iv 1000 Ml (Sodium Chloride 0.9%) (03/17/21 12:30) Accucheck Stat ONCE (03/17/21 13:58) Orthostatic Vital Signs (Adult (03/17/21 13:58) Vital Signs/I&O 03/17/21 10:58 Pulse 97 Resp 16 B/P (MAP) 129/73 (91) Pulse Ox 98 O2 Delivery Room Air Progress Progress Note : Time: 14:14 Progress Note Patient's blood sugars come down nicely into the 200 range after 2 L of fluids. She did have a fairly significant dip in her systolic blood pressure from laying down to standing from 135 systolic to 98 however the patient did not have any complaints of dizziness, lightheadedness or near syncope. She feels back to normal. She would like to be discharged. I encouraged her to go ahead and push oral fluids at home. I advised her that any diet would be acceptable and that if she had C. difficile it would not matter if she was on clear liquids or regular diet. She will be sent home with an order form for outpatient stool studies. She is given good return precautions. She verbalizes understanding, all questions are sought and answered. Patient is stable for discharge. Diagnostic Imaging Diagonstic Imaging: Xray Plain Films/CT/US/NM/MRI: chest Comments NAME: TIFFANY GRAMAJO [facility] REC#: [id number] PT STATUS: REG ER : 1960 PHYSICIAN: SANIA HYDE MD ADMIT DATE: 03/17/21/ER Draft Date of Exam:03/17/21 CHEST 1 VIEW, AP/PA ONLY INDICATION: Shortness of breath, smoker. COMPARISON: 11/11/2020 FINDINGS: The lungs are clear. Heart size is within normal limits. There is no failure, effusion or pneumothorax. Central line via left subclavian at the lower SVC. Sternal wires are superiorly midline and intact. IMPRESSION: No acute appearing abnormality. Dictated on workstation # [id number] Dict: 03/17/21 1159 Trans: 03/17/21 1212 [facility] [id number] Interpreted by: BOB MANNING Electronically signed by: Departure Impression Primary Impression: Diarrhea Qualified Codes: R19.7 - Diarrhea, unspecified Additional Impression: Hyperglycemia Disposition: HOME, SELF-CARE Condition: Stable Departure-Patient Inst. Decision time for Depature: 14:20 Referrals: PILLO FRANCOIS MD (PCP/Family) Primary Care Physician Patient Instructions: Dehydration, Adult ED, Diarrhea, Adult ED Add. Discharge Instructions: Push lots of fluids at home so that you stay well-hydrated in the face of your diarrhea. Please do not take Imodium until we confirm whether or not you have C. difficile colitis. Watch your sugars closely over the course of the next several days while you are having diarrhea. Check them often. Return to the emergency department if you have any abdominal pain, fever, vomiting or blood in your stools. An outpatient order form for stool studies has been given to you. When you are able to obtain the specimen please bring it back to the hospital. Follow-up with your primary care physician. Copy Copies To 1: PILLO FRANCOIS MD, KATHRYN M MD Mar 17, 2021 11:13
[2021-03-17] MEDS ORDERED: NS IV 1000 ML 1,000 ML IV SCH ×2 (11:15→12:30)
[2021-03-17 11:29] LABS: BASOPHILS # (AUTO) 0.2 10^3/uL (0.0-0.1); BASOPHILS % (AUTO) 1 % (0-10); EOSINOPHILS # (AUTO) 0.2 10^3/uL (0.0-0.3); EOSINOPHILS % (AUTO) 2 % (0-10); HEMATOCRIT 41 % (35-52); HEMOGLOBIN 12.8 g/dL (11.5-16.0); LYMPHOCYTES # (AUTO) 2.3 10^3/uL (1.0-4.0); LYMPHOCYTES % (AUTO) 17 % (12-44); MEAN CORPUSCULAR HEMOGLOBIN 26 pg (25-34); MEAN CORPUSCULAR HGB CONC 31 g/dL (32-36); MEAN CORPUSCULAR VOLUME 85 fL (80-99); MEAN PLATELET VOLUME 9.8 fL (9.0-12.2); MONOCYTES # (AUTO) 0.7 10^3/uL (0.0-1.0); MONOCYTES % (AUTO) 5 % (0-12); NEUTROPHILS # (AUTO) 9.7 10^3/uL (1.8-7.8); NEUTROPHILS % (AUTO) 73 % (42-75); PLATELET COUNT 440 10^3/uL (130-400); WHITE BLOOD COUNT 13.4 10^3/uL (4.3-11.0)
[2021-03-17 11:43] LABS: ALBUMIN 3.2 GM/DL (3.2-4.5)
[2021-03-17 11:44] LABS: POTASSIUM 5.2 MMOL/L (3.6-5.0)
[2021-03-17 11:45] LABS: CALCIUM 9.1 MG/DL (8.5-10.1)
[2021-03-17 11:46] LABS: TOTAL PROTEIN 6.7 GM/DL (6.4-8.2)
[2021-03-17 11:48] LABS: BILIRUBIN,TOTAL 0.5 MG/DL (0.1-1.0)
[2021-03-17 11:50] LABS: CREATININE SERUM 2.2 MG/DL (0.60-1.30)
--- NOTE | 2021-03-17 12:13 | Diagnostic Imaging Report ---
INDICATION: Shortness of breath, smoker. COMPARISON: 11/11/2020 FINDINGS: The lungs are clear. Heart size is within normal limits. There is no failure, effusion or pneumothorax. Central line via left subclavian at the lower SVC. Sternal wires are superiorly midline and intact. IMPRESSION: No acute appearing abnormality. Dictated by: Dictated on workstation # [id number]
[2021-03-17 15:07] VITALS: BP_SYST 132; BP_SYST 135; BP_SYST 95; BP_DIAS 67; BP_DIAS 69; BP_DIAS 76
== END 2021-03-17 15:03 | disposition home or self-care (01) ==
LOC: EDUNIT# 10:39 → ER 10:40
DX: R19.7 Diarrhea, unspecified (principal); E11.65 Type 2 diabetes mellitus with hyperglycemia; J44.9 Chronic obstructive pulmonary disease, unspecified; I10 Essential (primary) hypertension; E78.00 Pure hypercholesterolemia, unspecified; K21.9 Gastro-esophageal reflux disease without esophagitis; G89.29 Other chronic pain; M54.9 Dorsalgia, unspecified; E03.9 Hypothyroidism, unspecified; I25.10 Atherosclerotic heart disease of native coronary artery without angina pectoris; F41.9 Anxiety disorder, unspecified; F32.9 Major depressive disorder, single episode, unspecified; Z20.822 Contact with and (suspected) exposure to COVID-19; Z79.4 Long term (current) use of insulin; Z79.899 Other long term (current) drug therapy; Z79.891 Long term (current) use of opiate analgesic; Z79.890 Hormone replacement therapy; Z79.01 Long term (current) use of anticoagulants; Z79.82 Long term (current) use of aspirin
CPT/HCPCS: 36415; 71045; 80053; 82947; 85025; 87636; 96360; 96361

== ENCOUNTER → 2021-04-26 | Outpatient (CLI) | payer OTHER ==
[~2021-04-26] MED LIST changes: +MONT-40 PO; -MONT10TA32 PO; +ONDA-106 PO; -ONDA8TAB15 PO
== END ==
LOC: RT 10:30
PROVIDERS: ATTEND Nurse Practitioner Family
DX: J44.9 Chronic obstructive pulmonary disease, unspecified (principal)
CPT/HCPCS: 94060; 94726; 94729

== ENCOUNTER → 2021-04-26 | Outpatient (CLI) | payer OTHER ==
[~2021-04-26] MED LIST changes: -MONT-40 PO; +MONT10TA32 PO; -ONDA-106 PO; +ONDA8TAB15 PO; +RT-ALBUTEROL SULF 2.5 MG/3 ML PRE-MIX VIAL INH ONE
--- NOTE | 2021-04-26 11:12 | Diagnostic Imaging Report ---
PROCEDURE: US Renal Bilateral. TECHNIQUE: Multiple Real-time grayscale images were obtained over the kidneys in various projections bilaterally. INDICATION: Stage III 3 renal disease. FINDINGS: The right kidney measures 11.5 x 4.7 x 4.8 cm. The left kidney measures 10.7 x 5.1 x 4.4 cm. No evidence of obstructive uropathy. No masses or calculi are seen. The bladder shows a prevoid volume of 160 mL. Bilateral ureteral jets were demonstrated. The post void volume is 23 mL. IMPRESSION: Normal-appearing kidneys and bladder. Dictated by: Dictated on workstation # [id number]
== END ==
LOC: RAD 09:17
PROVIDERS: ATTEND Nurse Practitioner
DX: N18.32 Chronic kidney disease, stage 3b (principal)
CPT/HCPCS: 76770

== ENCOUNTER 2021-05-04 08:28 | Outpatient (CLI) | payer OTHER ==
[~2021-05-04] VITALS: Wt 49.4 kg
[~2021-05-04 08:28] MED LIST changes: -RT-ALBUTEROL SULF 2.5 MG/3 ML PRE-MIX VIAL INH ONE
[2021-05-04 09:23] VITALS: BP 132/99
== END 2021-05-04 09:25 ==
LOC: SDC 08:28
PROVIDERS: ATTEND Nurse Practitioner Family
DX: J44.9 Chronic obstructive pulmonary disease, unspecified (principal)
CPT/HCPCS: 36415; 36591; 85652; 86021; 86038; 86039; 86141; 86431

== ENCOUNTER 2021-05-27 13:55 | Outpatient (CLI) | payer OTHER ==
[~2021-05-27] VITALS: Wt 49.4 kg
[2021-05-27 15:03] VITALS: BP 125/69
[2021-05-27 15:23] LABS: BASOPHILS # (AUTO) 0.1 10^3/uL (0.0-0.1); BASOPHILS % (AUTO) 1 % (0-10); EOSINOPHILS # (AUTO) 0.3 10^3/uL (0.0-0.3); EOSINOPHILS % (AUTO) 2 % (0-10); HEMATOCRIT 36 % (35-52); HEMOGLOBIN 11.6 g/dL (11.5-16.0); LYMPHOCYTES # (AUTO) 2.9 10^3/uL (1.0-4.0); LYMPHOCYTES % (AUTO) 21 % (12-44); MEAN CORPUSCULAR HEMOGLOBIN 28 pg (25-34); MEAN CORPUSCULAR HGB CONC 32 g/dL (32-36); MEAN CORPUSCULAR VOLUME 87 fL (80-99); MEAN PLATELET VOLUME 9.2 fL (9.0-12.2); MONOCYTES # (AUTO) 0.8 10^3/uL (0.0-1.0); MONOCYTES % (AUTO) 6 % (0-12); NEUTROPHILS # (AUTO) 9.7 10^3/uL (1.8-7.8); NEUTROPHILS % (AUTO) 70 % (42-75); PLATELET COUNT 476 10^3/uL (130-400); WHITE BLOOD COUNT 13.9 10^3/uL (4.3-11.0)
[2021-05-27 15:36] LABS: ALBUMIN 3.2 GM/DL (3.2-4.5); POTASSIUM 4.4 MMOL/L (3.6-5.0)
[2021-05-27 15:37] LABS: CALCIUM 8.3 MG/DL (8.5-10.1)
[2021-05-27 15:38] LABS: TOTAL PROTEIN 6.1 GM/DL (6.4-8.2)
[2021-05-27 15:40] LABS: BILIRUBIN,TOTAL 0.2 MG/DL (0.1-1.0)
[2021-05-27 15:42] LABS: CREATININE SERUM 1.74 MG/DL (0.60-1.30)
[2021-05-27 16:07] LABS: FREE T4 (FREE THYROXINE) 0.93 NG/DL (0.70-1.48)
== END 2021-05-27 15:14 ==
LOC: SDC 13:55
PROVIDERS: ATTEND Pediatrics
DX: R10.9 Unspecified abdominal pain (principal)
CPT/HCPCS: 36415; 36591; 80053; 82728; 83036; 83540; 83550; 83690; 84439; 84443; 85025

== ENCOUNTER → 2021-07-12 | Outpatient (CLI) | payer OTHER ==
[~2021-07-12] VITALS: Ht 165.1 cm; Wt 49.1 kg
[~2021-07-12] MED LIST changes: +MONT-40 PO; -MONT10TA32 PO; +ONDA-106 PO; -ONDA8TAB15 PO
[2021-07-12 14:45] VITALS: BP 115/73
[2021-07-12 15:02] LABS: BASOPHILS # (AUTO) 0.1 10^3/uL (0.0-0.1); BASOPHILS % (AUTO) 1 % (0-10); EOSINOPHILS # (AUTO) 0.3 10^3/uL (0.0-0.3); EOSINOPHILS % (AUTO) 1 % (0-10); HEMATOCRIT 34 % (35-52); HEMOGLOBIN 11.2 g/dL (11.5-16.0); LYMPHOCYTES # (AUTO) 2.8 10^3/uL (1.0-4.0); LYMPHOCYTES % (AUTO) 14 % (12-44); MEAN CORPUSCULAR HEMOGLOBIN 29 pg (25-34); MEAN CORPUSCULAR HGB CONC 33 g/dL (32-36); MEAN CORPUSCULAR VOLUME 89 fL (80-99); MEAN PLATELET VOLUME 9.5 fL (9.0-12.2); MONOCYTES % (AUTO) 5 % (0-12); NEUTROPHILS # (AUTO) 15.6 10^3/uL (1.8-7.8); NEUTROPHILS % (AUTO) 78 % (42-75); PLATELET COUNT 468 10^3/uL (130-400); WHITE BLOOD COUNT 19.9 10^3/uL (4.3-11.0)
[2021-07-12 15:20] LABS: ALBUMIN 3.1 GM/DL (3.2-4.5); POTASSIUM 4.5 MMOL/L (3.6-5.0)
[2021-07-12 15:21] LABS: CALCIUM 8.4 MG/DL (8.5-10.1)
[2021-07-12 15:26] LABS: CREATININE SERUM 1.67 MG/DL (0.60-1.30); PHOSPHORUS 3.9 MG/DL (2.3-4.7)
[2021-07-12 16:08] LABS: BASOPHILS % (MANUAL) 1 %; EOSINOPHILS % (MANUAL) 1 %; LYMPHOCYTES % (MANUAL) 16 %; MONOCYTES % (MANUAL) 5 %; NEUTROPHILS % (MANUAL) 77 %; RBC MORPH NORMAL
== END ==
LOC: SDC 14:20
PROVIDERS: ATTEND Pediatrics
DX: E03.9 Hypothyroidism, unspecified (principal); R31.0 Gross hematuria
CPT/HCPCS: 36415; 36591; 80069; 84443; 85007; 85027

== ENCOUNTER 2021-07-24 15:44 | Emergency (ER) | payer OTHER ==
[~2021-07-24] VITALS: Ht 165 cm; Wt 49.0 kg
[2021-07-24 16:06] LABS: BILIRUBIN,URINE NEGATIVE (NEGATIVE); CLARITY,URINE CLEAR; COLOR,URINE YELLOW; GLUCOSE, URINE (UA) 2+ (NEGATIVE); KETONES,URINE NEGATIVE (NEGATIVE); LEUKOCYTE ESTERASE ,URINE NEGATIVE (NEGATIVE); NITRITE,URINE NEGATIVE (NEGATIVE); PROTEIN,URINE 3+ (NEGATIVE)
[2021-07-24 16:15] LABS: BACTERIA,URINE NEGATIVE /HPF; SQUAMOUS EPITHELIAL CELL,UR 0-2 /HPF; WBC,URINE RARE /HPF
[2021-07-24] MEDS ORDERED: ONDANSETRON 4 MG/2 ML (SDV) Z0FRAN IVP ONE ×2 (16:15→18:15)
[2021-07-24] MEDS ORDERED: CEFEPIME INJECTION 1,000 MG in NS (IVPB) 50 ML IV ONE (16:15)
[2021-07-24] MEDS ORDERED: fentaNYL INJ 100 MCG/2 ML AMP IVP ONE (16:15)
[2021-07-24] MEDS ORDERED: NS IV 1000 ML 1,000 ML IV SCH (16:15)
--- NOTE | 2021-07-24 16:16 | ED Back Pain ---
General Stated Complaint: BACK PAIN/ABD PAIN Source of Information: Patient Exam Limitations: No Limitations History of Present Illness Date Seen by Provider: Jul 24, 2021 Time Seen by Provider: 15:53 Initial Comments The patient and her daughter present to the ER by private conveyance with chief complaint of 1 week of progressively worsening back pain radiating down her right flank into her right groin, dysuria, hematuria and being treated outpatient for the past week for urinary tract infection with Macrobid followed by 1 injection of IM antibiotics on Sunday, [address] Juan R Mahmood for PCP. Has been having some nausea with vomiting today. She does not feel that she is getting any better. She is a type I diabetic with her morning blood sugar 170s. She is not on any steroids. No coughs fevers chills. She does have malaise and normal bowel movements. No history of kidney stones. She did have her gallbladder out and had a ileus after that but no other surgeries. Allergies and Home Medications Allergies Coded Allergies: ciprofloxacin (Verified Allergy, Mild, redness and itching , 12/04/18) redness and itching at iv site Patient Home Medication List Home Medication List Reviewed: Yes Aspirin (Aspirin) 81 Mg Tab.chew, 81 MG PO DAILY, (Reported) Entered as Reported by: TALAT CASTELLANOS on 12/04/18 1404 Atorvastatin Calcium (Atorvastatin Calcium) 40 Mg Tablet, 40 MG PO HS, (Reported) Entered as Reported by: JUAN R PEDROZA on 11/09/20 1153 Buspirone HCl (Buspirone HCl) 5 Mg Tablet, 5 MG PO BID, (Reported) Entered as Reported by: EFE PATTERSON on 12/20/15 1348 Clopidogrel Bisulfate (Clopidogrel) 75 Mg Tablet, 75 MG PO DAILY, (Reported) Entered as Reported by: JUAN R PEDROZA on 09/03/20 1559 Docusate Sodium (Colace) 100 Mg Capsule, 100 MG PO DAILY PRN for CONSTIPATION- 1ST LINE, (Reported) Entered as Reported by: JUAN R PEDROZA on 11/09/20 1153 Gabapentin (Gabapentin) 100 Mg Capsule, 100 MG PO HS, (Reported) Entered as Reported by: EFE PATTERSON on 12/20/15 1348 Hydrocodone/Acetaminophen (Hydrocodone-Acetamin 7.5-325) 1 Each Tablet, 1 EA PO Q6H PRN for PAIN-MODERATE (5-7), (Reported) Entered as Reported by: JUAN R PEDROZA on 11/09/20 1153 Hydrocodone/Acetaminophen (Hydrocodone-Acetamin 7.5-325) 1 Each Tablet, 1 EACH PO Q4H Prescribed by: NAKUL YUEN on 11/11/20 1449 Hyoscyamine Sulfate (Hyoscyamine Sulfate) 0.125 Mg Tab.subl, 0.125 MG SL Q4H PRN for SPASMS Prescribed by: DAWSON DEL ROSARIO on 11/12/20 1020 Insulin Aspart (Insulin Aspart) 100 Unit/1 Ml Vial, 12 UNITS SC TIDAC, (Reported) Entered as Reported by: JUAN R PEDROZA on 11/09/20 1153 Insulin Determir (Levemir) 1,000 Units/10 Ml Soln, 10 UNITS SQ HS, (Reported) Entered as Reported by: JUAN R PEDROZA on 11/09/20 1153 Levothyroxine Sodium (Euthyrox) 175 Mcg Tablet, 175 MCG PO DAILY, (Reported) Entered as Reported by: JUAN R PEDROZA on 09/03/20 1559 Ondansetron HCl (Ondansetron HCl) 8 Mg Tablet, 8 MG PO Q8H PRN for NAUS EA/VOMITING-1ST LINE, (Reported) Entered as Reported by: JUAN R PEDROZA on 11/09/20 1153 Pantoprazole Sodium (Pantoprazole Sodium) 40 Mg Tablet.dr, 40 MG PO DAILY, (Reported) Entered as Reported by: JUAN R PEDROZA on 11/09/20 1153 Paroxetine HCl (Paroxetine HCl) 40 Mg Tablet, 40 MG PO DAILY, (Reported) Entered as Reported by: LUIS TOWNSEND on 11/30/15 1408 Polyethylene Glycol 3350 (Miralax) 17 Gm Powd.pack, 17 GM PO DAILY, (Reported) Entered as Reported by: MADDY DUNHAM on 10/21/20 1244 Vancomycin HCl (Vancomycin HCl) 125 Mg Capsule, 125 MG PO QID Prescribed by: NAKUL YUEN on 11/11/20 1449 Review of Systems Constitutional: No chills, No diaphoresis EENTM: No ear discharge, No ear pain Respiratory: No cough, No phlegm, No short of breath Cardiovascular: No chest pain, No edema Gastrointestinal: abdominal pain; No constipation, No diarrhea; nausea, vomiting Genitourinary: No discharge, No dysuria : No Musculoskeletal: back pain; No joint pain All Other Systems Reviewed Negative Unless Noted: Yes Past Asvdoac-Lfopag-Idejcd Hx Patient Social History Tobacco Use?: No Use of E-Cig and/or Vaping dev: No Substance use?: No Immunizations Up To Date Tetanus Booster (TDap): Unknown PED Vaccines UTD: No First/Initial COVID19 Vaccinat: 1st later part of june 2020 Second COVID19 Vaccination Rakesh: 2nd was July 29 2020 Third COVID19 Vaccination Date: later part June 2020 Seasonal Allergies Seasonal Allergies: No Past Medical History Surgeries: Yes Abdominal, Cardiac, CABG, Gallbladder, 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, Oophorectomy, Orthopedic, Thyroidectomy, Vascular Surgery Respiratory: Yes COPD Currently Using CPAP: No Currently Using BIPAP: No Cardiac: Yes (RIGHT ILIAC STENT; 4 VESSEL CABG AND RIGHT CAROTID ENDARTERECTOMY 12/2015) Coronary Artery Disease, High Cholesterol, Hypertension, Peripheral Vascular Neurological: Yes Headaches /Migraines, Neuropathy Reproductive Disorders: No Female Reproductive Disorders: Denies [employer] 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, Menopausal Sexually Transmitted Disease: No HIV/AIDS: No Genitourinary: No Gastrointestinal: Yes Gastroesophageal Reflux, Chronic Constipation, Chronic Diarrhea, Hiatal Hernia Musculoskeletal: Yes (CHRONIC NECK PAIN--S/P CERVICAL FUSION) Degenerate Disk Disease, Chronic Back Pain Endocrine: Yes Diabetes, Insulin dep, Hypothyroidsim HEENT: No Loss of Vision: Denies Hearing Impairment: Denies Cancer: No Psychosocial: Yes Anxiety, Depression Integumentary: Yes (PREVIOUS ABCESSES) Blood Disorders: No Adverse Reaction/Blood Tranf: No Family Medical History Cancer G8 BROTHER, Onset:Unknown G8 BROTHER, Onset:Unknown Cancer of colon G8 BROTHER, Onset:Unknown Chest pain 19 MOTHER, Onset:Unknown Colon cancer Congestive heart failure 19 FATHER, Onset:60 years & older Family history: Alzheimer's disease 19 MOTHER, Onset:50's - 60 Family history: Arthritis 19 MOTHER, Onset:Unknown Family history: Asthma 19 FATHER, Onset:Unknown Family history: Cardiovascular disease 19 MOTHER, Onset:50's - 60 Family history: Coronary thrombosis 19 MOTHER, Onset:Unknown Family history: Diabetes mellitus 19 MOTHER, Onset:Unknown Family history: Hypertension 19 MOTHER, Onset:50's - 60 Family history: Thyroid disorder 19 MOTHER, Onset:50's - 60 Heart disease 19 MOTHER, Onset:50's - 60 Human immunodeficiency virus (HIV) seropositivity G8 BROTHER, Onset:40's - 50 Myocardial infarction 19 MOTHER, Onset:50's - 60 No Family History of: Abdominal aortic aneurysm Fidencio's disease Alcoholism Aphasia Cataract Congenital heart disease Cystic fibrosis Dementia Dysphagia Family history: Allergy Family history: Breast disease Family history: Gastrointestinal disease Family history: Glaucoma Family history: Osteoporosis Headache Hearing loss Hereditary disease History of - anemia History of - disorder History of - respiratory disease History of drug abuse Hypercholesterolemia Infertile Kidney disease Malignant neoplasm of lung Parkinson's disease Prostate cancer Psychotic disorder Seizure disorder Stroke Tuberculosis Visual impairment PSH: -RIGHT ILIAC ARTERY STENT -4 VESSEL CABG 12/2015 -RIGHT CAROTID ENDARTERECTOMY 12/2015 -TONSILLECTOMY -HYSTERECTOMY/BSO -LAPAROSCOPIC RENETTA FUNDOPLICATION -CERVICAL SPINE FUSION Physical Exam Vital Signs Vital Signs - First Documented 07/24/21 15:50 Temp 36.1 Pulse 86 Resp 18 B/P (MAP) 181/97 (125) Pulse Ox 98 Capillary Refill : Height, Weight, BMI Height: 5'5.00" Weight: 125lbs. 0.0oz. 56.500187cf; 18.00 BMI Method:Stated General Appearance: Chronically ill, Moderate Distress HEENT: PERRL/EOMI, Pharynx Normal, Moist Mucous Membranes Neck: Full Range of Motion, Normal Inspection Cardiovascular: Regular Rate, Rhythm, No Edema, Normal Peripheral Pulses Respiratory: Lungs Clear, Normal Breath Sounds, No Accessory Muscle Use, No Respiratory Distress Peripheral Pulses: 2+ Radial Pulses (R), 2+ Radial Pulses (L) Gastrointestinal: Normal Bowel Sounds, No Organomegaly, Non Tender, Soft Back: Normal Inspection, No Vertebral Tenderness, CVA Tenderness (R) Extremity: Normal Capillary Refill, Normal Inspection, Normal Range of Motion Neurologic/Psychiatric: Alert, Oriented x3 Skin: Normal Color, Warm/Dry Progress/Results/Core Measures Results/Orders Lab Results Laboratory Tests Test 07/24/21 16:02 07/24/21 16:15 07/24/21 17:22 Range/Units Urine Color YELLOW Urine Clarity CLEAR Urine pH 7.0 5-9 Urine Specific [place] 1.025 H 1.016-1.022 Urine Protein 3+ H NEGATIVE Urine Glucose (UA) 2+ H NEGATIVE Urine Ketones NEGATIVE NEGATIVE Urine Nitrite NEGATIVE NEGATIVE Urine Bilirubin NEGATIVE NEGATIVE Urine Urobilinogen 0.2 < = 1.0 MG/DL Urine Leukocyte Esterase NEGATIVE NEGATIVE Urine RBC (Auto) 2+ H NEGATIVE Urine RBC 5-10 H /HPF Urine WBC RARE /HPF Urine Squamous Epithelial Cells 0-2 /HPF Urine Crystals NONE /LPF Urine Bacteria NEGATIVE /HPF Urine Casts NONE /LPF Urine Mucus NEGATIVE /LPF Urine Culture Indicated NO White Blood Count 27.4 H 4.3-11.0 10^3/uL Red Blood Count 4.03 3.80-5.11 10^6/uL Hemoglobin 11.5 11.5-16.0 g/dL Hematocrit 35 35-52 % Mean Corpuscular Volume 87 80-99 fL Mean Corpuscular Hemoglobin 29 25-34 pg Mean Corpuscular Hemoglobin Concent 33 32-36 g/dL Red Cell Distribution Width 14.1 10.0-14.5 % Platelet Count 450 H 130-400 10^3/uL Mean Platelet Volume 9.3 9.0-12.2 fL Immature Granulocyte % (Auto) 1 % Neutrophils (%) (Auto) 88 H 42-75 % Lymphocytes (%) (Auto) 4 L 12-44 % Monocytes (%) (Auto) 6 0-12 % Eosinophils (%) (Auto) 0 0-10 % Basophils (%) (Auto) 1 0-10 % Neutrophils # (Auto) 24.2 H 1.8-7.8 10^3/uL Lymphocytes # (Auto) 1.1 1.0-4.0 10^3/uL Monocytes # (Auto) 1.7 H 0.0-1.0 10^3/uL Eosinophils # (Auto) 0.0 0.0-0.3 10^3/uL Basophils # (Auto) 0.2 H 0.0-0.1 10^3/uL Immature Granulocyte # (Auto) 0.2 H 0.0-0.1 10^3/uL Neutrophils % (Manual) 91 % Lymphocytes % (Manual) 4 % Monocytes % (Manual) 4 % Eosinophils % (Manual) 0 % Basophils % (Manual) 1 % Band Neutrophils 0 % Anisocytosis SLIGHT Sodium Level 138 135-145 MMOL/L Potassium Level 3.8 3.6-5.0 MMOL/L Chloride Level 101 98-107 MMOL/L Carbon Dioxide Level 24 21-32 MMOL/L Anion Gap 13 5-14 MMOL/L Blood Urea Nitrogen 30 H 7-18 MG/DL Creatinine 1.39 H 0.60-1.30 MG/DL Estimat Glomerular Filtration Rate 44 BUN/Creatinine Ratio 22 Glucose Level 121 H 70-105 MG/DL Lactic Acid Level 1.14 0.50-2.00 MMOL/L Calcium Level 9.4 8.5-10.1 MG/DL Corrected Calcium 9.9 8.5-10.1 MG/DL Total Bilirubin 0.3 0.1-1.0 MG/DL Aspartate Amino Transf (AST/SGOT) 48 H 5-34 U/L Alanine Aminotransferase (ALT/SGPT) 22 0-55 U/L Alkaline Phosphatase 150 H 40-136 U/L C-Reactive Protein High Sensitivity 0.25 0.00-0.50 MG/DL Total Protein 7.0 6.4-8.2 GM/DL Albumin 3.4 3.2-4.5 GM/DL Prothrombin Time 12.3 12.2-14.7 SEC INR Comment 0.9 0.8-1.4 Activated Partial Thromboplast Time 26 24-35 SEC My Orders Orders - FRANCINE NAILS Ua Culture If Indicated (07/24/21 15:46) Cbc With Automated Diff (07/24/21 15:52) Comprehensive Metabolic Panel (07/24/21 15:52) Hs C Reactive Protein (07/24/21 15:52) Ct Abd/Pelvis Wo(Kidney Stone) (07/24/21 16:07) Ondansetron Injection (Zofran Injectio (07/24/21 16:15) Fentanyl Inj (Sublimaze Injection) (07/24/21 16:15) Ed Iv/Invasive Line Start (07/24/21 16:07) Ns Iv 1000 Ml (Sodium Chloride 0.9%) (07/24/21 16:15) Blood Culture (07/24/21 16:07) Sputum Culture (07/24/21 16:07) Urine Culture (07/24/21 16:07) Protime With Inr (07/24/21 16:07) Partial Thromboplastin Time (07/24/21 16:07) Chest 1 View, Ap/Pa Only (07/24/21 16:07) Ed Iv/Invasive Line Start (07/24/21 16:07) Ed Iv/Invasive Line Start (07/24/21 16:07) Vital Signs Adult Sepsis Patie Q15M (07/24/21 16:07) O2 (07/24/21 16:07) Remove Rings In Anticipation O (07/24/21 16:07) Lactic Acid Analyzer (07/24/21 16:07) Cefepime Injection (Maxipime Injection) (07/24/21 16:15) Manual Differential (07/24/21 16:15) Lorazepam Tablet (Ativan Tablet) (07/24/21 17:45) Promethazine Injection (Phenergan Injec (07/24/21 18:15) Ondansetron Injection (Zofran Injectio (07/24/21 18:15) Diphenhydramine Injection (Benadryl Inje (07/24/21 18:15) Medications Given in ED Current Medications Medications Dose Ordered Sig/Janet Route Start Time Stop Time Status Last Admin Dose Admin Cefepime HCl 1000 mg/Sodium Chloride 50 ml @ 100 mls/hr ONCE ONCE IV 07/24/21 16:15 07/24/21 16:44 DC 07/24/21 17:15 100 MLS/HR Fentanyl Citrate 50 mcg ONCE ONCE IVP 07/24/21 16:15 07/24/21 16:16 DC 07/24/21 16:19 50 MCG Lorazepam 0.5 mg ONCE ONCE PO 07/24/21 17:45 07/24/21 17:46 DC 07/24/21 17:49 0.5 MG Ondansetron HCl 8 mg ONCE ONCE IVP 07/24/21 16:15 07/24/21 16:16 DC 07/24/21 16:19 8 MG Vital Signs/I&O 07/24/21 07/24/21 15:50 17:59 Temp 36.1 Pulse 86 88 Resp 18 18 B/P (MAP) 181/97 (125) 227/107 Pulse Ox 98 97 Progress Progress Note #1: Time: 16:15 Progress Note Plan to get a CT to rule out kidney stone. Septic work-up based on her heart rate in the 90s. She states that she had labs last week which demonstrated an elevated white count. Progress Note #2: Time: 17:44 Progress Note The patient blood pressure is significantly elevated and just goes up the more anxious she gets and hears that she has to be admitted. I suspect that anxiety is a part of it so we offered her some Ativan which she accepted. Want be careful about getting blood pressure medicines since she is septic and just now receiving antibiotics. Diagnostic Imaging Diagonstic Imaging: CT Plain Films/CT/US/NM/MRI: abdomen, pelvis Comments [facility] [place], [place] NAME: TIFFANY GRAMAJO [facility] REC#: [id number] PT STATUS: REG ER : 1960 PHYSICIAN: FRANCINE NAILS MD ADMIT DATE: 07/24/21/ER Signed Date of Exam:07/24/21 CT ABD/PELVIS WO(KIDNEY STONE) PROCEDURE: CT urinary tract, rule out kidney stone. TECHNIQUE: Multiple contiguous axial images were obtained through the abdomen and pelvis without the use of intravenous contrast. Auto Exposure Controls were utilized during the CT exam to meet ALARA standards for radiation dose reduction. INDICATION: Right flank pain and posterior abdominal pain. Kidney stone. COMPARISON: 11/09/2020. FINDINGS: The lung bases are clear. The heart is moderately large. The liver demonstrates no focal lesion. Cholecystectomy clips are noted. The spleen appears normal. The pancreas is unremarkable. Please note that evaluation is suboptimal in the absence of intravenous contrast. There is moderate right hydronephrosis and hydroureter with significant perirenal edema. The ureter is poorly defined due to the mild anasarca. A stone is not identified along the course of the right ureter. No calculi are seen in the urinary bladder. No calculi are seen in the left kidney and there is no hydronephrosis. Bowel loops are nondistended without obstruction. There is moderate stool in the colon. No free fluid is seen. There is calcific atherosclerosis. There is a right common iliac stent. No free air is seen. No acute osseous abnormality is identified. IMPRESSION: 1. Right hydroureteronephrosis with marked perirenal edema. No definite obstructing stone is identified. This could be due to recently passed stone or possibly infection. 2. Moderate stool in the colon, please correlate with any history of constipation. Dictated by: Dictated on workstation # [id number] Dict: 07/24/211650 Trans: 07/24/211702 [facility] [id number] Interpreted by: HAVEN CASTILLO MD Electronically signed by: HAVEN CASTILLO MD 07/24/211702 Reviewed: Reviewed by Me Diagonstic Imaging: Xray Plain Films/CT/US/NM/MRI: chest Comments [facility] [place] NAME: TIFFANY GRAMAJO [facility] REC#: [id number] PT STATUS: REG ER : 1960 PHYSICIAN: FRANCINE NAILS MD ADMIT DATE: 07/24/21/ER Signed Date of Exam:07/24/21 CHEST 1 VIEW, AP/PA ONLY HISTORY: Pyelonephritis, sepsis. COMPARISON: 03/17/2021. TECHNIQUE: Frontal view of the chest. FINDINGS: There is mild cardiomegaly. No pleural effusion or pneumothorax is seen. No consolidation is seen. There are old left-sided rib fractures. Left-sided Port-A-Cath appears stable. Sternotomy wires and post CABG changes are noted. IMPRESSION: Mild cardiomegaly. No focal consolidation seen. Dictated by: Dictated on workstation # [id number] Dict: 07/24/211656 Trans: 07/24/211702 [facility] [id number] Interpreted by: HAVEN CASTILLO MD Electronically signed by: HAVEN CASTILLO MD 07/24/211702 Reviewed: Reviewed by Me Departure Communication (Admissions) Discussed the case with Dr. Rivers and she agrees to admit the patient for IV antibiotics, fluids and management at [facility] as we are short on beds locally. Impression Primary Impression: Pyelonephritis Additional Impression: Sepsis Qualified Codes: A41.9 - Sepsis, unspecified organism Disposition: ADMITTED INPATIENT Condition: Stable Transfer Transfer Reason: Patient preference Time Spoke to Accepting Phy: 17:25 Transfer Progress Notes Discussed the case with Dr. Rivers and she agrees to admit the patient for IV antibiotics, fluids and management at [facility] as we are short on beds locally. Transfer Time: 18:15 Transfer Facility: Method of Transfer: EMS Departure-Patient Inst. Referrals: NO,LOCAL PHYSICIAN (PCP) Primary Care Physician JUAN R MAHMOOD DO (Family) Primary Care Physician Focused Exam Sepsis Stage: Sepsis Possible Source: Genitouriary Lactate Level 07/24/21 16:15: Lactic Acid Level 1.14 Height, Weight, BMI Height: 5'5.00" Weight: 125lbs. 0.0oz. 56.596870zh; 17.00 BMI Method:Stated Time of Focused Exam: 17:44 Respiratory: No Accessory Muscle Use, No Respiratory Distress Cardiovascular: Regular Rate, Rhythm, No Edema, Normal Peripheral Pulses Capillary Refill: Less Than 3 Seconds Peripheral Pulses: 2+ Radial Pulses (R), 2+ Radial Pulses (L) Skin: normal color, warm/dry Lactic Acid Level Laboratory Tests Test 07/24/21 16:15 Lactic Acid Level 1.14 MMOL/L (0.50-2.00) Within 3hrs of presentation: Admin fluids, Admin ABX, Blood cultures prior to ABX's, Focus exam, Lactate level FRANCINE NAILS Jul 24, 2021 16:16
[2021-07-24 16:31] LABS: BASOPHILS # (AUTO) 0.2 10^3/uL (0.0-0.1); BASOPHILS % (AUTO) 1 % (0-10); EOSINOPHILS % (AUTO) 0 % (0-10); HEMATOCRIT 35 % (35-52); HEMOGLOBIN 11.5 g/dL (11.5-16.0); LYMPHOCYTES # (AUTO) 1.1 10^3/uL (1.0-4.0); LYMPHOCYTES % (AUTO) 4 % (12-44); MEAN CORPUSCULAR HEMOGLOBIN 29 pg (25-34); MEAN CORPUSCULAR HGB CONC 33 g/dL (32-36); MEAN CORPUSCULAR VOLUME 87 fL (80-99); MEAN PLATELET VOLUME 9.3 fL (9.0-12.2); MONOCYTES # (AUTO) 1.7 10^3/uL (0.0-1.0); MONOCYTES % (AUTO) 6 % (0-12); NEUTROPHILS # (AUTO) 24.2 10^3/uL (1.8-7.8); NEUTROPHILS % (AUTO) 88 % (42-75); PLATELET COUNT 450 10^3/uL (130-400); WHITE BLOOD COUNT 27.4 10^3/uL (4.3-11.0)
[2021-07-24 16:38] LABS: ALBUMIN 3.4 GM/DL (3.2-4.5); POTASSIUM 3.8 MMOL/L (3.6-5.0)
[2021-07-24 16:39] LABS: CALCIUM 9.4 MG/DL (8.5-10.1)
[2021-07-24 16:42] LABS: BILIRUBIN,TOTAL 0.3 MG/DL (0.1-1.0)
[2021-07-24 16:44] LABS: CREATININE SERUM 1.39 MG/DL (0.60-1.30)
--- NOTE | 2021-07-24 17:00 | Diagnostic Imaging Report ---
PROCEDURE: CT urinary tract, rule out kidney stone. TECHNIQUE: Multiple contiguous axial images were obtained through the abdomen and pelvis without the use of intravenous contrast. Auto Exposure Controls were utilized during the CT exam to meet ALARA standards for radiation dose reduction. INDICATION: Right flank pain and posterior abdominal pain. Kidney stone. COMPARISON: 11/09/2020. FINDINGS: The lung bases are clear. The heart is moderately large. The liver demonstrates no focal lesion. Cholecystectomy clips are noted. The spleen appears normal. The pancreas is unremarkable. Please note that evaluation is suboptimal in the absence of intravenous contrast. There is moderate right hydronephrosis and hydroureter with significant perirenal edema. The ureter is poorly defined due to the mild anasarca. A stone is not identified along the course of the right ureter. No calculi are seen in the urinary bladder. No calculi are seen in the left kidney and there is no hydronephrosis. Bowel loops are nondistended without obstruction. There is moderate stool in the colon. No free fluid is seen. There is calcific atherosclerosis. There is a right common iliac stent. No free air is seen. No acute osseous abnormality is identified. IMPRESSION: 1. Right hydroureteronephrosis with marked perirenal edema. No definite obstructing stone is identified. This could be due to recently passed stone or possibly infection. 2. Moderate stool in the colon, please correlate with any history of constipation. Dictated by: Dictated on workstation # [id number]
--- NOTE | 2021-07-24 17:01 | Diagnostic Imaging Report ---
HISTORY: Pyelonephritis, sepsis. COMPARISON: 03/17/2021. TECHNIQUE: Frontal view of the chest. FINDINGS: There is mild cardiomegaly. No pleural effusion or pneumothorax is seen. No consolidation is seen. There are old left-sided rib fractures. Left-sided Port-A-Cath appears stable. Sternotomy wires and post CABG changes are noted. IMPRESSION: Mild cardiomegaly. No focal consolidation seen. Dictated by: Dictated on workstation # [id number]
[2021-07-24 17:02] LABS: ANISOCYTOSIS SLIGHT; BAND NEUTROPHILS 0 %; BASOPHILS % (MANUAL) 1 %; EOSINOPHILS % (MANUAL) 0 %; LYMPHOCYTES % (MANUAL) 4 %; MONOCYTES % (MANUAL) 4 %; NEUTROPHILS % (MANUAL) 91 %
[2021-07-24] MEDS ORDERED: LORazepam 0.5 MG (ATIVAN) TABLET PO ONE (17:45)
[2021-07-24 17:55] LABS: INR 0.9 (0.8-1.4); PROTHROMBIN TIME PATIENT 12.3 SEC (12.2-14.7)
[2021-07-24 17:59] VITALS: BP 227/107
[2021-07-24] MEDS ORDERED: ONDANSETRON 4 MG/2 ML (SDV) Z0FRAN ONE (18:08)
[2021-07-24] MEDS ORDERED: diphenhydrAMINE 50 MG/ML INJ (BENADRYL) ONE (18:08)
[2021-07-24] MEDS ORDERED: PROMETHAZINE INJ 25 MG/ML (PHENERGAN) AMP ONE (18:08)
[2021-07-24] MEDS ORDERED: diphenhydrAMINE 50 MG/ML INJ (BENADRYL) IVP ONE (18:15)
[2021-07-24] MEDS ORDERED: PROMETHAZINE INJ 25 MG/ML (PHENERGAN) AMP IVP ONE (18:15)
== END 2021-07-24 18:18 | disposition short-term general hospital (02) ==
LOC: EDUNIT# 15:44 → ER 15:46
DX: A41.9 Sepsis, unspecified organism (principal); N12 Tubulo-interstitial nephritis, not specified as acute or chronic; J44.9 Chronic obstructive pulmonary disease, unspecified; I25.10 Atherosclerotic heart disease of native coronary artery without angina pectoris; I10 Essential (primary) hypertension; E11.51 Type 2 diabetes mellitus with diabetic peripheral angiopathy without gangrene; F41.9 Anxiety disorder, unspecified; K21.9 Gastro-esophageal reflux disease without esophagitis; F32.A Depression, unspecified; E03.9 Hypothyroidism, unspecified; Z79.4 Long term (current) use of insulin; Z79.82 Long term (current) use of aspirin; Z79.899 Other long term (current) drug therapy; Z98.1 Arthrodesis status; Z95.1 Presence of aortocoronary bypass graft
CPT/HCPCS: 36415; 71045; 74176; 80053; 81000; 83605; 85007; 85027; 85610; 85730; 86141; 87040; 87088; 96361; 96365; 96375; 96376

== ENCOUNTER 2021-07-29 17:57 | Observation (INO) | payer OTHER ==
[~2021-07-29] VITALS: Ht 165.1 cm; Wt 55.3 kg
[2021-07-29] MEDS ORDERED: ASPIRIN 81 MG CHEW (CHILDREN'S ASA) PO ONE (18:30)
[2021-07-29 18:36] LABS: BASOPHILS # (AUTO) 0.1 10^3/uL (0.0-0.1); BASOPHILS % (AUTO) 1 % (0-10); EOSINOPHILS # (AUTO) 0.2 10^3/uL (0.0-0.3); EOSINOPHILS % (AUTO) 2 % (0-10); HEMATOCRIT 29 % (35-52); HEMOGLOBIN 9.6 g/dL (11.5-16.0); LYMPHOCYTES # (AUTO) 1.8 10^3/uL (1.0-4.0); LYMPHOCYTES % (AUTO) 18 % (12-44); MEAN CORPUSCULAR HEMOGLOBIN 29 pg (25-34); MEAN CORPUSCULAR HGB CONC 33 g/dL (32-36); MEAN CORPUSCULAR VOLUME 88 fL (80-99); MEAN PLATELET VOLUME 9.6 fL (9.0-12.2); MONOCYTES # (AUTO) 0.8 10^3/uL (0.0-1.0); MONOCYTES % (AUTO) 8 % (0-12); NEUTROPHILS # (AUTO) 7.2 10^3/uL (1.8-7.8); NEUTROPHILS % (AUTO) 70 % (42-75); PLATELET COUNT 430 10^3/uL (130-400); WHITE BLOOD COUNT 10.3 10^3/uL (4.3-11.0)
--- NOTE | 2021-07-29 18:39 | ED Cardiac General ---
History of Present Illness General Chief Complaint: Cardiac/General Problems Stated Complaint: AFIB Source: patient Exam Limitations: no limitations (HARRISON MOREJON APRN) History of Present Illness Date Seen by Provider: Jul 29, 2021 Time Seen by Provider: 18:35 Initial Comments To ER with reports of atrial fibrillation. She was sent by Dr. Juan R Rose from [facility]. She presented there today for routine hospital follow-up. She was admitted to [facility] on 07/24/2021 and discharged on 07/26/2021 for a diagnosis of sepsis/right side pyelonephritis. Her creatinine gladis from 1.39 to about 2.6, her lisinopril was discontinued upon discharge. She felt fine and denies any chest pain or palpitations. She was found incidentally during her routine follow-up visit today to have a blood pressure in the 80s systolic and heart rate in one teens. She was given a 500 mL fluid bolus which improved her systolic pressure up to about 100 but her heart rate also increased to the 150s atrial fibrillation with rapid ventricular response. She does bring with her the EKG that was obtained at that time confirming this. She does not have any known history of atrial fibrillation. She does have a history of type 1 diabetes, pulmonary hypertension, PVD, neuropathy, hypertension, COPD, anxiety depression, chronic kidney disease stage IIIb, degenerative disc disease, hyperlipidemia. She is a current smoker. She is currently on outpatient cefdinir twice daily to complete treatment of her pyelonephritis Timing/Duration: changing over time Severity: moderate Activities at Onset: none NTG SL LEARNING COACH: No ASA po LEARNING COACH: No Associated Systoms: Denies Symptoms (HARRISON MOREJON APRN) Allergies and Home Medications Allergies Coded Allergies: ciprofloxacin (Verified Allergy, Mild, redness and itching , 12/04/18) redness and itching at iv site Patient Home Medication List Home Medication List Reviewed: Yes (HARRISON MOREJON APRN) Albuterol Sulfate (Proair Respiclick) 90 Mcg Aer.pow.ba, 90 MCG INH Q4H PRN for WHEEZING, (Reported) Entered as Reported by: ERROL DAVIS on 07/30/21330 Last Action: Continued Amlodipine Besylate (Amlodipine Besylate) 5 Mg Tablet, 5 MG PO DAILY, (Reported) Entered as Reported by: ERROL DAVIS on 07/30/21330 Last Action: Continued Apixaban (Eliquis) 2.5 Mg Tablet, 2.5 MG PO BID Prescribed by: TONG MAGALLON on 07/30/21 1229 Aspirin (Aspirin) 81 Mg Tab.chew, 81 MG PO DAILY, (Reported) Entered as Reported by: TALAT CASTELLANOS on 12/04/18 1404 Last Action: Continued Atorvastatin Calcium (Atorvastatin Calcium) 40 Mg Tablet, 40 MG PO HS, (Repor oscar) Entered as Reported by: JUAN R PEDROZA on 11/09/20 1153 Last Action: Continued Buspirone HCl (Buspirone HCl) 5 Mg Tablet, 5 MG PO BID, (Reported) Entered as Reported by: EFE PATTERSON on 12/20/15 1348 Last Action: Continued Calcitriol (Calcitriol) 0.25 Mcg Capsule, 0.25 MCG PO DAILY, (Reported) Entered as Reported by: ERROL DAVIS on 07/30/21330 Last Action: Continued Cefdinir (Cefdinir) 300 Mg Capsule, 300 MG PO BID Prescribed by: TONG MAGALLON on 07/30/21 1229 Clopidogrel Bisulfate (Clopidogrel) 75 Mg Tablet, 75 MG PO DAILY, (Reported) Entered as Reported by: JUAN R PEDROZA on 09/03/20 1559 Last Action: Continued Diltiazem HCl (Diltiazem 24Hr ER) 120 Mg Cap.er.24h, 120 MG PO DAILY Prescribed by: TONG MAGALLON on 07/30/21 1229 Docusate Sodium (Colace) 100 Mg Capsule, 100 MG PO DAILY PRN for CONSTIPATION- 1ST LINE, (Reported) Entered as Reported by: JUAN R PEDROZA on 11/09/20 115 Last Action: Continued Fluticasone/Umeclidin/Vilanter (Trelegy Ellipta 100-62.5-25) 1 Each Blst.w.dev, 1 EACH IH DAILY, (Reported) Entered as Reported by: ERROL DAVIS on 07/30/21330 Last Action: Converted Gabapentin (Gabapentin) 100 Mg Capsule, 100 MG PO HS, (Reported) Entered as Reported by: EFE PATTERSON on 12/20/15 1348 Last Action: Continued Hydrocodone/Acetaminophen (Hydrocodone-Acetamin 5-325 mg) 1 Each Tablet, 5-325 MG PO Q6H PRN for PAIN-BREAKTHROUGH, (Reported) Entered as Reported by: ERROL DAVIS on 07/30/21330 Last Action: Continued Hyoscyamine Sulfate (Hyoscyamine Sulfate) 0.125 Mg Tab.subl, 0.125 MG SL Q4H PRN for SPASMS Prescribed by: DAWSON DEL ROSARIO on 11/12/20 1020 Last Action: Converted Insulin Aspart (Insulin Aspart) 100 Unit/1 Ml Vial, 12 UNITS SC TIDAC, (Reported) Entered as Reported by: JUAN R PEDROZA on 11/09/20 115 Last Action: Continued Insulin Determir (Levemir) 1,000 Units/10 Ml Soln, 14 UNITS SQ BID, (Reported) Entered as Reported by: JUAN R PEDROZA on 11/09/201152 Last Action: Continued Levothyroxine Sodium (Euthyrox) 175 Mcg Tablet, 175 MCG PO DAILY, (Reported) Entered as Reported by: JUAN R PEDROZA on 09/03/20 1559 Last Action: Converted Lisinopril (Lisinopril) 20 Mg Tablet, 10 MG PO HS, (Reported) Entered as Reported by: ERROL DAVIS on 07/30/21330 Last Action: Held Montelukast Sodium (Montelukast Sodium) 10 Mg Tablet, 10 MG PO HS, (Reported) Entered as Reported by: ERROL DAVIS on 07/30/21330 Last Action: Continued Pantoprazole Sodium (Pantoprazole Sodium) 40 Mg Tablet.dr, 40 MG PO DAILY, (Reported) Entered as Reported by: JUAN R PEDROZA on 11/09/201152 Last Action: Continued Paroxetine HCl (Paroxetine HCl) 40 Mg Tablet, 40 MG PO DAILY, (Reported) Entered as Reported by: LUIS TOWNSEND on 11/30/15 1408 Last Action: Converted Promethazine HCl (Promethazine Tablet) 25 Mg Tablet, 25 MG PO Q8H PRN for NAUSEA/VOMITING, (Reported) Entered as Reported by: ERROL DAVIS on 07/30/21330 Last Action: Continued Discontinued Medications Hydrocodone/Acetaminophen (Hydrocodone-Acetamin 7.5-325) 1 Each Tablet, 1 EA PO Q6H PRN for PAIN-MODERATE (5-7), (Reported) Discontinued Reason: No Longer Taking Entered as Reported by: JUAN R PEDROZA on 11/09/20 1153 Last Action: Discontinued Hydrocodone/Acetaminophen (Hydrocodone-Acetamin 7.5-325) 1 Each Tablet, 1 EACH PO Q4H Discontinued Reason: No Longer Taking Prescribed by: NAKUL YUEN on 11/11/20 1449 Last Action: Discontinued Ondansetron HCl (Ondansetron HCl) 8 Mg Tablet, 8 MG PO Q8H PRN for NAUSEA/VOMITING-1ST LINE, (Reported) Discontinued Reason: No Longer Taking Entered as Reported by: JUAN R PEDROZA on 11/09/20 1153 Last Action: Discontinued Polyethylene Glycol 3350 (Miralax) 17 Gm Powd.pack, 17 GM PO DAILY, (Reported) Discontinued Reason: No Longer Taking Entered as Reported by: MADDY DUNHAM on 10/21/20 1244 Last Action: Discontinued Vancomycin HCl (Vancomycin HCl) 125 Mg Capsule, 125 MG PO QID Discontinued Reason: No Longer Taking Prescribed by: NAKUL YUEN on 11/11/20 1449 Last Action: Discontinued Review of Systems Review of Systems Constitutional: see HPI EENTM: No Symptoms Reported Respiratory: No Symptoms Reported Cardiovascular: See HPI; Denies Chest Pain; Irregular Heart Rate, Lightheadedness; Denies Palpitations Gastrointestinal: See HPI Genitourinary: No Symptoms Reported Musculoskeletal: no symptoms reported Skin: no symptoms reported Psychiatric/Neurological: No Symptoms Reported Endocrine: No Symptoms Reported (HARRISON MOREJON APRN) Past Hvleqwm-Lzvpoy-Visfzz Hx Patient Social History Tobacco Use?: Yes Tobacco type used: Cigarettes Smoking Status: Current Everyday Smoker Smokeless Tobacco Frequency: Never a User Use of E-Cig and/or Vaping dev: No Use of E-Cig and/or Vaping Mayo: Never a User Substance use?: No Alcohol Use?: No Pt feels they are or have been: No (HARRISON MOREJON APRN) Immunizations Up To Date Tetanus Booster (TDap): Unknown PED Vaccines UTD: No First/Initial COVID19 Vaccinat: 07/2020 Second COVID19 Vaccination Rakesh: 07/2020 Third COVID19 Vaccination Date: part June 2020 COVID19 Vaccine Toppiece Chopper: HERNAN (HARRISON MOREJON APRN) Seasonal Allergies Seasonal Allergies: No (HARRISON MOREJON APRN) Past Medical History Surgery/Hospitalization HX: GALL BLADDER, UTI Surgeries: Yes Abdominal, Cardiac, CABG, Gallbladder, 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, Oophorectomy, Orthopedic, Thyroidectomy, Vascular Surgery Respiratory: Yes COPD Currently Using CPAP: No Currently Using BIPAP: No Cardiac: Yes (RIGHT ILIAC STENT; 4 VESSEL CABG AND RIGHT CAROTID ENDARTERECTOMY 12/2015) Coronary Artery Disease, High Cholesterol, Hypertension, Peripheral Vascular Neurological: Yes Headaches /Migraines, Neuropathy Reproductive Disorders: No Female Reproductive Disorders: Denies 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, Menopausal Sexually Transmitted Disease: No HIV/AIDS: No Genitourinary: No Gastrointestinal: Yes Gastroesophageal Reflux, Chronic Constipation, Chronic Diarrhea, Hiatal Hernia Musculoskeletal: Yes (CHRONIC NECK PAIN--S/P CERVICAL FUSION) Degenerate Disk Disease, Chronic Back Pain Endocrine: Yes Diabetes, Insulin dep, Hypothyroidsim HEENT: No Loss of Vision: Denies Hearing Impairment: Denies Cancer: No Psychosocial: Yes Anxiety, Depression Integumentary: Yes (PREVIOUS ABCESSES) Blood Disorders: No Adverse Reaction/Blood Tranf: No (HARRISON MOREJON APRN) Family Medical History Cancer G8 BROTHER, Onset:Unknown G8 BROTHER, Onset:Unknown Cancer of colon G8 BROTHER, Onset:Unknown Chest pain 19 MOTHER, Onset:Unknown Colon cancer Congestive heart failure 19 FATHER, Onset:60 years & older Family history: Alzheimer's disease 19 MOTHER, Onset:50's - 60 Family history: Arthritis 19 MOTHER, Onset:Unknown Family history: Asthma 19 FATHER, Onset:Unknown Family history: Cardiovascular disease 19 MOTHER, Onset:50's - 60 Family history: Coronary thrombosis 19 MOTHER, Onset:Unknown Family history: Diabetes mellitus 19 MOTHER, Onset:Unknown Family history: Hypertension 19 MOTHER, Onset:50's - 60 Family history: Thyroid disorder 19 MOTHER, Onset:50's - 60 Heart disease 19 MOTHER, Onset:50's - 60 Human immunodeficiency virus (HIV) seropositivity G8 BROTHER, Onset:40's - 50 Myocardial infarction 19 MOTHER, Onset:50's - 60 No Family History of: Abdominal aortic aneurysm Elgin's disease Alcoholism Aphasia Cataract Congenital heart disease Cystic fibrosis Dementia Dysphagia Family history: Allergy Family history: Breast disease Family history: Gastrointestinal disease Family history: Glaucoma Family history: Osteoporosis Headache Hearing loss Hereditary disease History of - anemia History of - disorder History of - respiratory disease History of drug abuse Hypercholesterolemia Infertile Kidney disease Malignant neoplasm of lung Parkinson's disease Prostate cancer Psychotic disorder Seizure disorder Stroke Tuberculosis Visual impairment PSH: -RIGHT ILIAC ARTERY STENT -4 VESSEL CABG 12/2015 -RIGHT CAROTID ENDARTERECTOMY 12/2015 -TONSILLECTOMY -HYSTERECTOMY/BSO -LAPAROSCOPIC RENETTA FUNDOPLICATION -CERVICAL SPINE FUSION (HARRISON MOREJON APRN) Physical Exam Vital Signs Vital Signs - First Documented 07/29/21 18:11 Temp 36.4 Pulse 89 Resp 17 B/P (MAP) 150/89 (109) O2 Delivery Room Air (ONEYDA CHOU DO) Vital Signs Capillary Refill : (HARRISON MOREJON APRN) Height, Weight, BMI Height: 5'5.00" Weight: 125lbs. 0.0oz. 56.253979aq; 17.00 BMI Method:Stated General Appearance: No Apparent Distress, WD/WN, Chronically ill, Thin HEENT: PERRL/EOMI, TMs Normal Neck: Full Range of Motion, Normal Inspection Respiratory: No Accessory Muscle Use, No Respiratory Distress Cardiovascular: Regular Rate, Rhythm, Normal Peripheral Pulses, Other (Currently she is in sinus rhythm with a rate of 84.) Gastrointestinal: Normal Bowel Sounds, Non Tender, Soft Extremity: Normal Capillary Refill, Normal Inspection Neurologic/Psychiatric: Alert, Oriented x3 Skin: Normal Color, Warm/Dry (HARRISON MOREJON APRN) Focused Exam Lactate Level 07/29/21 18:45: Lactic Acid Level 1.18 (ONEYDA CHOU DO) Lactic Acid Level Laboratory Tests Test 07/29/21 18:45 Lactic Acid Level 1.18 MMOL/L (0.50-2.00) (ONEYDA CHOU DO) Progress/Results/Core Measures Results/Orders Lab Results Laboratory Tests Test 07/29/21 18:31 07/29/21 18:45 07/29/21 19:20 Range/Units White Blood Count 10.3 4.3-11.0 10^3/uL Red Blood Count 3.34 L 3.80-5.11 10^6/uL Hemoglobin 9.6 L 11.5-16.0 g/dL Hematocrit 29 L 35-52 % Mean Corpuscular Volume 88 80-99 fL Mean Corpuscular Hemoglobin 29 25-34 pg Mean Corpuscular Hemoglobin Concent 33 32-36 g/dL Red Cell Distribution Width 14.6 H 10.0-14.5 % Platelet Count 430 H 130-400 10^3/uL Mean Platelet Volume 9.6 9.0-12.2 fL Immature Granulocyte % (Auto) 1 % Neutrophils (%) (Auto) 70 42-75 % Lymphocytes (%) (Auto) 18 12-44 % Monocytes (%) (Auto) 8 0-12 % Eosinophils (%) (Auto) 2 0-10 % Basophils (%) (Auto) 1 0-10 % Neutrophils # (Auto) 7.2 1.8-7.8 10^3/uL Lymphocytes # (Auto) 1.8 1.0-4.0 10^3/uL Monocytes # (Auto) 0.8 0.0-1.0 10^3/uL Eosinophils # (Auto) 0.2 0.0-0.3 10^3/uL Basophils # (Auto) 0.1 0.0-0.1 10^3/uL Immature Granulocyte # (Auto) 0.1 0.0-0.1 10^3/uL Prothrombin Time 12.9 12.2-14.7 SEC INR Comment 0.9 0.8-1.4 Activated Partial Thromboplast Time 27 24-35 SEC Sodium Level 132 L 135-145 MMOL/L Potassium Level 4.4 3.6-5.0 MMOL/L Chloride Level 103 98-107 MMOL/L Carbon Dioxide Level 19 L 21-32 MMOL/L Anion Gap 10 5-14 MMOL/L Blood Urea Nitrogen 47 H 7-18 MG/DL Creatinine 2.29 H 0.60-1.30 MG/DL Estimat Glomerular Filtration Rate 24 BUN/Creatinine Ratio 21 Glucose Level 388 H 70-105 MG/DL Calcium Level 7.9 L 8.5-10.1 MG/DL Corrected Calcium 8.8 8.5-10.1 MG/DL Magnesium Level 1.9 1.6-2.4 MG/DL Total Bilirubin 0.1 0.1-1.0 MG/DL Aspartate Amino Transf (AST/SGOT) 34 5-34 U/L Alanine Aminotransferase (ALT/SGPT) 28 0-55 U/L Alkaline Phosphatase 140 H 40-136 U/L Myoglobin 129.7 H 10.0-92.0 NG/ML Troponin I 0.058 H <0.028 NG/ML Total Protein 6.1 L 6.4-8.2 GM/DL Albumin 2.9 L 3.2-4.5 GM/DL Lactic Acid Level 1.18 0.50-2.00 MMOL/L Urine Color YELLOW Urine Clarity SL CLOUDY Urine pH 6.0 5-9 Urine Specific [place] 1.020 1.016-1.022 Urine Protein 2+ H NEGATIVE Urine Glucose (UA) 3+ H NEGATIVE Urine Ketones NEGATIVE NEGATIVE Urine Nitrite NEGATIVE NEGATIVE Urine Bilirubin NEGATIVE NEGATIVE Urine Urobilinogen 0.2 < = 1.0 MG/DL Urine Leukocyte Esterase NEGATIVE NEGATIVE Urine RBC (Auto) 3+ H NEGATIVE Urine RBC 25-50 H /HPF Urine WBC 10-25 H /HPF Urine Squamous Epithelial Cells 0-2 /HPF Urine Crystals NONE /LPF Urine Bacteria TRACE /HPF Urine Casts PRESENT /LPF Urine Hyaline Casts 0-2 H /LPF Urine Mucus NEGATIVE /LPF Urine Culture Indicated NO (JOSÉ ANTONIO,ONEYDA K DO) Micro Results Microbiology 07/29/21 Urine Culture - Final, Complete Growth Consistent 07/29/21 Blood Culture - Preliminary, Resulted No growth 07/29/21 Blood Culture - Preliminary, Resulted No growth (JOSÉ ANTONIO,ONEYDA K DO) Vital Signs/I&O 07/29/21 18:11 Temp 36.4 Pulse 89 Resp 17 B/P (MAP) 150/89 (109) O2 Delivery Room Air (JOSÉ ANTONIO,ONEYDA K DO) Departure Communication (Admissions) Family Conversation MED REC#: [id number] PT STATUS: REG ER : 1960 PHYSICIAN: HARRISON MOREJON APRN ADMIT DATE: 07/29/21/ER Signed Date of Exam:07/29/21 CHEST 1 VIEW, AP/PA ONLY INDICATION: Chest pain. Complaining of atrial fibrillation. EXAMINATION: Chest, 07/29/2021. COMPARISON: 07/24/2021. FINDINGS: The heart is stable, pulmonary vasculature is unremarkable. The lungs appear clear with no infiltrates or effusions. There is no pneumothorax. Multiple old rib fractures noted on the left. A chest port on the left is stable. Sternotomy wires and postoperative change along the cervical spine also noted. IMPRESSION: Diffuse chronic findings with no acute cardiopulmonary process. Dictated by: Dictated on workstation # [id number] Dict: 07/29/218 Trans: 07/29/211907 [facility] [id number] Interpreted by: ALBIN JACOB MD Electronically signed by: ALBIN JACOB MD 07/29/211907 EKG shows sinus rhythm rate of 84, no ST segment change no ectopy normal interv als. (HARRISON MOREJON APRN) Impression Primary Impression: New onset a-fib Additional Impression: Elevated troponin Disposition: ADMITTED INPATIENT Condition: Stable Admissions Decision to Admit Reason: Admit from ER (General) Decision to Admit/Date: Jul 29, 2021 Time/Decision to Admit Time: 19:41 (HARRISON MOREJON APRN) Departure-Patient Inst. Referrals: JUAN R MAHMOOD DO (PCP/Family) Primary Care Physician Scripts Diltiazem HCl (Diltiazem 24Hr ER) 120 Mg Cap.er.24h 120 MG PO DAILY, #30 CAP Prov: TONG MAGALLON DO 07/30/21 Apixaban (Eliquis) 2.5 Mg Tablet 2.5 MG PO BID, #60 TAB Prov: TONG AMGALLON DO 07/30/21 Cefdinir (Cefdinir) 300 Mg Capsule 300 MG PO BID for 5 Days, CAP Prov: TONG MAGALLON DO 07/30/21 ATTENDING PHYSICIAN NOTE: I WAS PHYSICALLY PRESENT ER PHYSICIAN WHEN THIS PATIENT WAS IN ER, BUT I WAS NOT INVOLVED IN ANY DECISION MAKING OR ANY CARE OF THIS PATIENT. (ONEYDA CHOU DO) HARRISON MOREJON APRN Jul 29, 2021 18:39 ONEYDA CHOU DO Aug 01, 2021 05:31
[2021-07-29 18:47] LABS: ALBUMIN 2.9 GM/DL (3.2-4.5)
[2021-07-29 18:48] LABS: POTASSIUM 4.4 MMOL/L (3.6-5.0)
[2021-07-29 18:49] LABS: CALCIUM 7.9 MG/DL (8.5-10.1)
[2021-07-29 18:50] LABS: INR 0.9 (0.8-1.4); PROTHROMBIN TIME PATIENT 12.9 SEC (12.2-14.7); TOTAL PROTEIN 6.1 GM/DL (6.4-8.2)
[2021-07-29 18:52] LABS: BILIRUBIN,TOTAL 0.1 MG/DL (0.1-1.0)
[2021-07-29 18:54] LABS: CREATININE SERUM 2.29 MG/DL (0.60-1.30)
[2021-07-29 18:57] LABS: MAGNESIUM 1.9 MG/DL (1.6-2.4)
--- NOTE | 2021-07-29 19:01 | Diagnostic Imaging Report ---
INDICATION: Chest pain. Complaining of atrial fibrillation. EXAMINATION: Chest, 07/29/2021. COMPARISON: 07/24/2021. FINDINGS: The heart is stable, pulmonary vasculature is unremarkable. The lungs appear clear with no infiltrates or effusions. There is no pneumothorax. Multiple old rib fractures noted on the left. A chest port on the left is stable. Sternotomy wires and postoperative change along the cervical spine also noted. IMPRESSION: Diffuse chronic findings with no acute cardiopulmonary process. Dictated by: Dictated on workstation # [id number]
[2021-07-29 19:29] LABS: BILIRUBIN,URINE NEGATIVE (NEGATIVE); CLARITY,URINE SL CLOUDY; COLOR,URINE YELLOW; GLUCOSE, URINE (UA) 3+ (NEGATIVE); KETONES,URINE NEGATIVE (NEGATIVE); LEUKOCYTE ESTERASE ,URINE NEGATIVE (NEGATIVE); NITRITE,URINE NEGATIVE (NEGATIVE); PROTEIN,URINE 2+ (NEGATIVE)
[2021-07-29 19:43] LABS: BACTERIA,URINE TRACE /HPF; HYALINE CASTS, URINE 0-2 /LPF; RBC,URINE 25-50 /HPF; SQUAMOUS EPITHELIAL CELL,UR 0-2 /HPF
[2021-07-29] MEDS ORDERED: APIXABAN 2.5 MG (ELIQUIS) TABLET PO ONE (19:45)
[2021-07-29] MEDS ORDERED: dilTIAZem120 MG (CARDIZEM CD) CAP PO SCH (19:45)
[2021-07-29] MEDS ORDERED: ANTACID SUSP 30 ML UDC (MYLANTA) PO PRN (21:30)
[2021-07-29] MEDS ORDERED: HYDROmorphone 2 MG/ML VIAL (DILAUDID) IVP PRN (21:30)
[2021-07-29] MEDS ORDERED: NS IV 1000 ML 1,000 ML IV SCH (21:30)
[2021-07-29] MEDS ORDERED: polyethylene glycoL POWDER 17 GM (MIRALAX) PACK PO PRN (21:30)
[2021-07-29] MEDS ORDERED: BISACODYL 10 MG SUPP (DULCOLAX) PR PRN (21:30)
[2021-07-29] MEDS ORDERED: CALCIUM CARBONATE 500 MG (TUMS) TAB.CHEW PO PRN (21:30)
[2021-07-29] MEDS ORDERED: ONDANSETRON 4 MG (ZOFRAN) ORAL DISSOLVE TAB PO PRN (21:30)
[2021-07-29] MEDS ORDERED: cloNIDine 0.1 MG (CATAPRES) TAB PO PRN (21:30)
[2021-07-29] MEDS ORDERED: ALPRAZolam 0.25 MG (XANAX) TAB PO PRN (21:30)
[2021-07-29] MEDS ORDERED: LACTULOSE SYRUP 10GM/15ML (ENULOSE) 30ML UDC PO PRN (21:30)
[2021-07-29] MEDS ORDERED: MILK OF MAGNESIA 400 MG/5 ML 30 ML UDC PO PRN (21:30)
[2021-07-29] MEDS ORDERED: ONDANSETRON 4 MG/2 ML (SDV) Z0FRAN IV PRN (21:30)
[2021-07-29 23:22] VITALS: BP 155/79
[2021-07-30 03:16] VITALS: BP 161/72
[2021-07-30] MEDS ORDERED: AMLO-250 PO (03:31)
[2021-07-30] MEDS ORDERED: LISI20TA26 PO (03:31)
[2021-07-30] MEDS ORDERED: MONT-40 PO (03:31)
[2021-07-30] MEDS ORDERED: FLUT1BLS3 IH (03:31)
[2021-07-30] MEDS ORDERED: PROM25TA14 PO (03:31)
[2021-07-30] MEDS ORDERED: ACHD5005 PO (03:31)
[2021-07-30] MEDS ORDERED: CALC0.253 PO (03:31)
[2021-07-30] MEDS ORDERED: ALBU90AE INH (03:31)
[2021-07-30 05:08] LABS: BASOPHILS # (AUTO) 0.1 10^3/uL (0.0-0.1); BASOPHILS % (AUTO) 1 % (0-10); EOSINOPHILS # (AUTO) 0.5 10^3/uL (0.0-0.3); EOSINOPHILS % (AUTO) 6 % (0-10); HEMATOCRIT 28 % (35-52); HEMOGLOBIN 9.1 g/dL (11.5-16.0); LYMPHOCYTES # (AUTO) 2.2 10^3/uL (1.0-4.0); LYMPHOCYTES % (AUTO) 25 % (12-44); MEAN CORPUSCULAR HEMOGLOBIN 29 pg (25-34); MEAN CORPUSCULAR HGB CONC 33 g/dL (32-36); MEAN CORPUSCULAR VOLUME 88 fL (80-99); MEAN PLATELET VOLUME 9.5 fL (9.0-12.2); MONOCYTES # (AUTO) 0.7 10^3/uL (0.0-1.0); MONOCYTES % (AUTO) 8 % (0-12); NEUTROPHILS # (AUTO) 5.3 10^3/uL (1.8-7.8); NEUTROPHILS % (AUTO) 59 % (42-75); PLATELET COUNT 397 10^3/uL (130-400); WHITE BLOOD COUNT 8.9 10^3/uL (4.3-11.0)
[2021-07-30 05:16] LABS: POTASSIUM 3.9 MMOL/L (3.6-5.0)
[2021-07-30 05:17] LABS: ALBUMIN 2.6 GM/DL (3.2-4.5)
[2021-07-30 05:18] LABS: CALCIUM 8.1 MG/DL (8.5-10.1)
[2021-07-30 05:19] LABS: TOTAL PROTEIN 5.5 GM/DL (6.4-8.2)
[2021-07-30 05:21] LABS: BILIRUBIN,TOTAL 0.2 MG/DL (0.1-1.0)
[2021-07-30 05:23] LABS: CREATININE SERUM 1.94 MG/DL (0.60-1.30)
[2021-07-30] MEDS: inSUlin ASPART (NovoLOG) 1 UNIT/0.01 ML (CHARGE PER UNIT) SC SCH ×4 (05:32→12:24)
[2021-07-30] MEDS ORDERED: RT-ALBUTEROL SULF 2.5 MG/3 ML PRE-MIX VIAL INH PRN (05:45)
[2021-07-30] MEDS ORDERED: PROMETHAZINE 25 MG (PHENERGAN) TAB PO PRN (05:45)
[2021-07-30] MEDS ORDERED: HYDROcodone/APAP 5 MG/325 MG (LORTAB) TAB PO PRN (05:45)
[2021-07-30] MEDS ORDERED: DOCUSATE SODIUM 100 MG (COLACE) CAP PO PRN (05:45)
[2021-07-30] MEDS ORDERED: HYOSCYAMINE 0.125 MG (LEVSIN) TAB SL PRN (06:00)
[2021-07-30] MEDS ORDERED: LEVOTHYROXINE 100 MCG (LEVOTHROID) TAB PO SCH (06:30)
[2021-07-30] MEDS ORDERED: LEVOTHYROXINE 75 MCG (LEVOTHROID) TABLET PO SCH (06:30)
--- NOTE | 2021-07-30 06:48 | Short Stay Summary-Hospitalist ---
History of Present Illness HPI/Chief Complaint Chief complaint: New onset A. fib with RVR History of present illness: This is a 60-year-old white male who is known to me from hospital stay at [facility] when [facility] was on diversion last weekend for pyelonephritis responded to cefepime empirically and shifted to Omnicef and discharge who presented to the ER with palpitations and was found to have new onset atrial fibrillation with rapid ventricular response easily converted to normal sinus rhythm after one dose of Cardizem. Patient was placed on Eliquis and Cardizem CD. Cardiology has evaluated her and approved her for discharge. Source: patient Exam Limitations: no limitations Date Seen 07/30/21 Time Seen by a Provider: 11:30 Attending Physician Tonja Rivers DO PCP José Manuel Dodge DO Referring Physician Date of Admission Jul 29, 2021 at 19:40 Home Medications & Allergies Home Medications Reviewed patient Home Medication Reconciliation performed by pharmacy medication reconciliations satellite installation technician and/or nursing. Patients Allergies have been reviewed. Allergies Allergies Coded Allergies ciprofloxacin (Verified Allergy, Mild, redness and itching , 12/04/18) redness and itching at iv site Past Ehiizgf-Wzsykd-Wnotcc Hx Patient Social History Marrital Status: single Employed/Student: unemployed Tobacco Use?: Yes Tobacco type used: Cigarettes Smoking Status: Current Everyday Smoker Smokeless Tobacco Frequency: Never a User Use of E-Cig and/or Vaping dev: No Use of E-Cig and/or Vaping Maoy: Never a User Substance use?: No Alcohol Use?: No Pt feels they are or have been: No Immunizations Up To Date Date of Influenza Vaccine: May 05, 2020 First/Initial COVID19 Vaccinat: 07/2020 Second COVID19 Vaccination Rakesh: 07/2020 Tetanus Booster (TDap): Unknown Hepatitis A: No Hepatitis B: No PED Vaccines UTD: No Date of Pneumonia Vaccine: Apr 02, 2013 Seasonal Allergies Seasonal Allergies: No Current Status status: No status: No Advance Directives: No Communicates: Verbally Primary Language: Fijian Preferred Spoken Language: Fijian Is interpretation needed?: No Sensory deficits: Vision impairment Implanted or Applied Medical D: Central venous access Past Medical History Surgeries: Abdominal, Cardiac, CABG, Gallbladder, 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, Oophorectomy, Orthopedic, Thyroidectomy, Vascular Surgery COPD Currently Using CPAP: No Currently Using BIPAP: No Coronary Artery Disease, High Cholesterol, Hypertension, Peripheral Vascular 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 /Migraines, Neuropathy 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, 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 Sexually Transmitted Disease: No HIV/AIDS: No Gastroesophageal Reflux, Chronic Constipation, Chronic Diarrhea, Hiatal Hernia Degenerate Disk Disease, Chronic Back Pain Diabetes, Insulin dep, Hypothyroidsim Loss of Vision: Denies Hearing Impairment: Denies Anxiety, Depression Blood Disorders: No Adverse Reaction/Blood Tranf: No T1DM on insulin CKD3 Family Medical History Cancer G8 BROTHER, Onset:Unknown G8 BROTHER, Onset:Unknown Cancer of colon G8 BROTHER, Onset:Unknown Chest pain 19 MOTHER, Onset:Unknown Colon cancer Congestive heart failure 19 FATHER, Onset:60 years & older Family history: Alzheimer's disease 19 MOTHER, Onset:50's - 60 Family history: Arthritis 19 MOTHER, Onset:Unknown Family history: Asthma 19 FATHER, Onset:Unknown Family history: Cardiovascular disease 19 MOTHER, Onset:50's - 60 Family history: Coronary thrombosis 19 MOTHER, Onset:Unknown Family history: Diabetes mellitus 19 MOTHER, Onset:Unknown Family history: Hypertension 19 MOTHER, Onset:50's - 60 Family history: Thyroid disorder 19 MOTHER, Onset:50's - 60 Heart disease 19 MOTHER, Onset:50's - 60 Human immunodeficiency virus (HIV) seropositivity G8 BROTHER, Onset:40's - 50 Myocardial infarction 19 MOTHER, Onset:50's - 60 No Family History of: Abdominal aortic aneurysm Fidencio's disease Alcoholism Aphasia Cataract Congenital heart disease Cystic fibrosis Dementia Dysphagia Family history: Allergy Family history: Breast disease Family history: Gastrointestinal disease Family history: Glaucoma Family history: Osteoporosis Headache Hearing loss Hereditary disease History of - anemia History of - disorder History of - respiratory disease History of drug abuse Hypercholesterolemia Infertile Kidney disease Malignant neoplasm of lung Parkinson's disease Prostate cancer Psychotic disorder Seizure disorder Stroke Tuberculosis Visual impairment PSH: -RIGHT ILIAC ARTERY STENT -4 VESSEL CABG 12/2015 -RIGHT CAROTID ENDARTERECTOMY 12/2015 -TONSILLECTOMY -HYSTERECTOMY/BSO -LAPAROSCOPIC RENTETA FUNDOPLICATION -CERVICAL SPINE FUSION Review of Systems Constitutional: see HPI, malaise, weakness EENTM: no symptoms reported Respiratory: no symptoms reported Cardiovascular: palpitations Gastrointestinal: no symptoms reported Genitourinary: no symptoms reported Musculoskeletal: no symptoms reported Skin: no symptoms reported Psychiatric/Neurological: No Symptoms Reported All Other Systems Reviewed Negative Unless Noted: Yes Physical Exam Physical Exam Vital Signs Vital Signs - First Documented 1/21/22 1/21/22 18:11 20:29 Temp 36.4 Pulse 89 Resp 17 B/P (MAP) 150/89 (109) Pulse Ox 100 O2 Delivery Room Air Capillary Refill : Less Than 3 Seconds Height, Weight, BMI Height: 5'5.00" Weight: 125lbs. 0.0oz. 56.702808ni; 20.28 BMI Method:Stated General Appearance: No Apparent Distress, WD/WN, Chronically ill, Thin HEENT: PERRL/EOMI, TMs Normal Neck: Full Range of Motion, Normal Inspection Respiratory: No Accessory Muscle Use, No Respiratory Distress Cardiovascular: Regular Rate, Rhythm, Normal Peripheral Pulses, Other (C urrently she is in sinus rhythm with a rate of 84.) Gastrointestinal: Normal Bowel Sounds, Non Tender, Soft Extremity: Normal Capillary Refill, Normal Inspection Neurologic/Psychiatric: Alert, Oriented x3 Skin: Normal Color, Warm/Dry Results Results/Procedures Labs Laboratory Tests 07/29/21 18:31 07/30/21 05:02 Patient resulted labs reviewed. Short Stay Diagnosis Discharge Diagnosis-Short Stay Admission Diagnosis Assessment: New onset atrial fibrillation with RVR easily converted to NSR after one dose of Cardizem in the ER Smoker PVD COPD Recent pyelonephritis Chronic kidney disease managed by nephrology in [place] Diabetes Hypertension Hyperlipidemia Final Discharge Diagnosis Assessment: New onset atrial fibrillation with RVR easily converted to NSR after one dose of Cardizem in the ER Smoker PVD COPD Recent pyelonephritis Chronic kidney disease managed by nephrology in [place] Diabetes Hypertension Hyperlipidemia Conclusion Plan Discharge home Renal dosed Eliquis Cardijeremiahm AI Clinical Quality Measures AMI/AHF: ASA po Prior to arrival: TONJA Benson DO Jul 30, 2021 06:48
[2021-07-30] MEDS ORDERED: FLU QUADRIvalent (3YOA+) 60 mcg/0.5 ml 2021-22(AFLURIA) IM ONE (07:00)
[2021-07-30] MEDS ORDERED: PANTOPRAZOLE 40 MG (PROTONIX) TAB PO SCH (07:00)
[2021-07-30 08:00] VITALS: BP 162/70
[2021-07-30] MEDS ORDERED: RT--FLUTICASONE/SALMETEROL 232-14 (AIRDUO RespiCLICK) IH SCH (08:00)
[2021-07-30] MEDS ORDERED: UMECLIDINIUM BROMIDE (INCRUSE ELLIPTA) 7'S IH SCH (08:00)
[2021-07-30] MEDS ORDERED: CALCITRIOL 0.25 MCG (ROCALTROL) CAPSULE PO SCH (09:00)
[2021-07-30] MEDS ORDERED: amLODIPine 5 MG (NORVASC) TAB PO SCH (09:00)
[2021-07-30] MEDS ORDERED: busPIRone 5 MG (BUSPAR) TAB PO SCH (09:00)
[2021-07-30] MEDS ORDERED: ASPIRIN 81 MG CHEW (CHILDREN'S ASA) PO SCH (09:00)
[2021-07-30] MEDS ORDERED: NON-FORMULARY MEDICATION 1 EA EA (Fluticasone/Umeclidin/Vilanter (Trelegy Ellipta 100-62.5 IH SCH (09:00)
[2021-07-30] MEDS ORDERED: DOCUSATE SODIUM 100 MG (COLACE) CAP PO SCH (09:00)
[2021-07-30] MEDS ORDERED: SENNOSIDES 8.6 MG (SENOKOT) TAB PO SCH (09:00)
[2021-07-30] MEDS ORDERED: dilTIAZem120 MG (CARDIZEM CD) CAP PO SCH (09:00)
[2021-07-30] MEDS ORDERED: PARoxetine 20 MG (PAXIL) TAB PO SCH (09:00)
[2021-07-30] MEDS ORDERED: CEFDINIR 300 MG (OMNICEF) CAP PO SCH (09:00)
[2021-07-30] MEDS ORDERED: APIXABAN 2.5 MG (ELIQUIS) TABLET PO SCH (09:00)
[2021-07-30] MEDS ORDERED: CLOPIDOGREL 75 MG (PLAVIX) TABLET PO SCH (09:00)
--- NOTE | 2021-07-30 11:07 | Consultation-Cardiology ---
HPI-Cardiology Cardiology Consultation: Date of Consultation 07/30/2021 Date of Admission 07/29/2021 Attending Physician Tonja Rivers DO Admitting Physician Juan R Dodge DO Consulting Physician SEB STRANGE JR, MD HPI: Time Seen by a Provider: 11:25 Chief Complaint: Reason for consultation: Atrial fibrillation and elevated troponin level. I had the pleasure of seeing Jessica on the medical/surgical unit at [facility] in [place], [place] this morning. She has an extensive past cardiac history and normally follows with one of my partners. She had been in [facility] 2 weeks ago for noncardiac issues, mainly related to urinary tract infection. She spent 2 nights in the hospital and was discharged home. Yesterday she went for a follow-up visit and her primary provider noticed tachycardia. An electrocardiogram was performed that showed atrial fibrillation with a rapid ventricular rate and the patient was sent to our emergency room for further evaluation. Soon after arriving in the emergency room, the patient spontaneously converted to sinus rhythm. However, she was found to have an elevated troponin level. I was contacted at that time. I recommended the patient be admitted to telemetry for serial troponin levels. She denies any palpitations. She denies any previously known history of atrial fibrillation. She denies chest discomfort, dyspnea, paroxysmal nocturnal dyspnea, orthopnea, lightheadedness, syncope, or lower extremity edema. She is in the process of trying to get disability due to her multiple medical issues. She smokes 1 pack of cigarettes per day. Certain portions of this document may have been dictated utilizing voice recognition technology. Inherent to this technology, typographical and grammatical errors may exist. As much as I am diligent to identify and correct these mistakes, some errors may remain in the document. Review of Systems-Cardiology Review of Systems Other comments Review of 10 organ systems is as per the history of present illness, otherwise negative. FLZ-Yeriqf-Lvljhn Hx Patient Social History Smoking Status: Current Everyday Smoker 2nd Hand Smoke Exposure: No Have you traveled recently?: No Alcohol Use?: No Pt feels they are or have been: No Tobacco type used: Cigarettes Immunizations Up To Date Tetanus Booster (TDap): Unknown Date of Pneumonia Vaccine: Apr 02, 2013 Date of Influenza Vaccine: May 05, 2020 Past Medical History PMH As described under Assessment. Family Medical History Family History: Cancer G8 BROTHER, Onset:Unknown G8 BROTHER, Onset:Unknown Cancer of colon G8 BROTHER, Onset:Unknown Chest pain 19 MOTHER, Onset:Unknown Colon cancer Congestive heart failure 19 FATHER, Onset:60 years & older Family history: Alzheimer's disease 19 MOTHER, Onset:50's - 60 Family history: Arthritis 19 MOTHER, Onset:Unknown Family history: Asthma 19 FATHER, Onset:Unknown Family history: Cardiovascular disease 19 MOTHER, Onset:50s - 60 Family history: Coronary thrombosis 19 MOTHER, Onset:Unknown Family history: Diabetes mellitus 19 MOTHER, Onset:Unknown Family history: Hypertension 19 MOTHER, Onset:50 - Family history: Thyroid disorder 19 MOTHER, Onset:50 - 60 Heart disease 19 MOTHER, Onset:50 Human immunodeficiency virus (HIV) seropositivity G8 BROTHER, Onset:40's - 50 Myocardial infarction 19 MOTHER, Onset:50 No Family History of: Abdominal aortic aneurysm [place]'s disease Alcoholism Aphasia Cataract Congenital heart disease Cystic fibrosis Dementia Dysphagia Family history: Allergy Family history: Breast disease Family history: Gastrointestinal disease Family history: Glaucoma Family history: Osteoporosis Headache Hearing loss Hereditary disease History of - anemia History of - disorder History of - respiratory disease History of drug abuse Hypercholesterolemia Infertile Kidney disease Malignant neoplasm of lung Parkinson's disease Prostate cancer Psychotic disorder Seizure disorder Stroke Tuberculosis Visual impairment Allergies and Home Medications Allergies Coded Allergies: ciprofloxacin (Verified Allergy, Mild, redness and itching , 12/04/18) redness and itching at iv site Patient Home Medication List Home Medication List Reviewed: Yes Albuterol Sulfate (Proair Respiclick) 90 Mcg Aer.pow.ba, 90 MCG INH Q4H PRN for WHEEZING, (Reported) Entered as Reported by: ERROL DAVIS on 07/30/21330 Last Action: Continued Amlodipine Besylate (Amlodipine Besylate) 5 Mg Tablet, 5 MG PO DAILY, (Reported) Entered as Reported by: ERROL DAVIS on 07/30/21 033 Last Action: Continued Aspirin (Aspirin) 81 Mg Tab.chew, 81 MG PO DAILY, (Reported) Entered as Reported by: TALAT CASTELLANOS on 12/04/18 1404 Last Action: Continued Atorvastatin Calcium (Atorvastatin Calcium) 40 Mg Tablet, 40 MG PO HS, (Reported) Entered as Reported by: JUAN R PEDROZA on 11/09/20 1153 Last Action: Continued Buspirone HCl (Buspirone HCl) 5 Mg Tablet, 5 MG PO BID, (Reported) Entered as Reported by: EFE PATTERSON on 12/20/15 1348 Last Action: Continued Calcitriol (Calcitriol) 0.25 Mcg Capsule, 0.25 MCG PO DAILY, (Reported) Entered as Reported by: ERROL DAVIS on 07/30/21330 Last Action: Continued Clopidogrel Bisulfate (Clopidogrel) 75 Mg Tablet, 75 MG PO DAILY, (Reported) Entered as Reported by: JUANR EPDROZA on 09/03/20 6221 Last Action: Continued Docusate Sodium (Colace) 100 Mg Capsule, 100 MG PO DAILY PRN for CONSTIPATION- 1ST LINE, (Reported) Entered as Reported by: JUAN R PEDROZA on 11/09/20 115 Last Action: Continued Fluticasone/Umeclidin/Vilanter (Trelegy Ellipta 100-62.5-25) 1 Each Blst.w.dev, 1 EACH IH DAILY, (Reported) Entered as Reported by: ERROL DAVIS on 07/30/21330 Last Action: Converted Gabapentin (Gabapentin) 100 Mg Capsule, 100 MG PO HS, (Reported) Entered as Reported by: EFE PATTERSON on 12/20/15 134 Last Action: Continued Hydrocodone/Acetaminophen (Hydrocodone-Acetamin 5-325 mg) 1 Each Tablet, 5-325 MG PO Q6H PRN for PAIN-BREAKTHROUGH, (Reported) Entered as Reported by: ERROL DAVIS on 07/30/21330 Last Action: Continued Hyoscyamine Sulfate (Hyoscyamine Sulfate) 0.125 Mg Tab.subl, 0.125 MG SL Q4H PRN for SPASMS Prescribed by: DAWSON DEL ROSARIO on 11/12/20 1020 Last Action: Converted Insulin Aspart (Insulin Aspart) 100 Unit/1 Ml Vial, 12 UNITS SC TIDAC, (Reported) Entered as Reported by: JUAN R PEDROZA on 11/09/20 115 Last Action: Continued Insulin Determir (Levemir) 1,000 Units/10 Ml Soln, 14 UNITS SQ BID, (Reported) Entered as Reported by: JUAN R PEDROZA on 11/09/20 115 Last Action: Continued Levothyroxine Sodium (Euthyrox) 175 Mcg Tablet, 175 MCG PO DAILY, (Reported) Entered as Reported by: JUAN R PEDROZA on 09/03/20 1209 Last Action: Converted Lisinopril (Lisinopril) 20 Mg Tablet, 10 MG PO HS, (Reported) Entered as Reported by: ERROL DAVIS on 07/30/21330 Last Action: Held Montelukast Sodium (Montelukast Sodium) 10 Mg Tablet, 10 MG PO HS, (Reported) Entered as Reported by: ERROL DAVIS on 07/30/21330 Last Action: Continued Pantoprazole Sodium (Pantoprazole Sodium) 40 Mg Tablet.dr, 40 MG PO DAILY, (Reported) Entered as Reported by: JUAN R PEDROZA on 11/09/20 115 Last Action: Continued Paroxetine HCl (Paroxetine HCl) 40 Mg Tablet, 40 MG PO DAILY, (Reported) Entered as Reported by: LUIS TOWNSEND on 11/30/15 1408 Last Action: Converted Promethazine HCl (Promethazine Tablet) 25 Mg Tablet, 25 MG PO Q8H PRN for NAUSEA/VOMITING, (Reported) Entered as Reported by: ERROL DAVIS on 07/30/21330 Last Action: Continued Discontinued Medications Hydrocodone/Acetaminophen (Hydrocodone-Acetamin 7.5-325) 1 Each Tablet, 1 EA PO Q6H PRN for PAIN-MODERATE (5-7), (Reported) Discontinued Reason: No Longer Taking Entered as Reported by: JUAN R PEDROZA on 11/09/20 115 Last Action: Discontinued Hydrocodone/Acetaminophen (Hydrocodone-Acetamin 7.5-325) 1 Each Tablet, 1 EACH PO Q4H Discontinued Reason: No Longer Taking Prescribed by: NAKUL YUEN on 11/11/20 1449 Last Action: Discontinued Ondansetron HCl (Ondansetron HCl) 8 Mg Tablet, 8 MG PO Q8H PRN for NAUSEA/VOMITING-1ST LINE, (Reported) Discontinued Reason: No Longer Taking Entered as Reported by: JUAN R PEDROZA on 11/09/20 1153 Last Action: Discontinued Polyethylene Glycol 3350 (Miralax) 17 Gm Powd.pack, 17 GM PO DAILY, (Reported) Discontinued Reason: No Longer Taking Entered as Reported by: MADDY DUNHAM on 10/21/20 1244 Last Action: Discontinued Vancomycin HCl (Vancomycin HCl) 125 Mg Capsule, 125 MG PO QID Discontinued Reason: No Longer Taking Prescribed by: NAKUL YUEN on 11/11/20 1441 Last Action: Discontinued Exam Vital Signs Vital Signs Date Time Temp Pulse Resp B/P (MAP) Pulse Ox O2 Delivery O2 Flow Rate FiO2 07/30/21 10:17 98 Room Air 07/30/21 08:00 36.5 81 20 162/70 (100) Physical Exam General: Alert. No acute distress. Well nourished and appears older than her stated age. Eye: Extraocular movements are intact. Conjunctivae are clear. There are no xanthelasma. HENT: Normocephalic. Atraumatic. Carotid pulsations 2/2 without bruits. Neck: Jugular venous pressure does not appear elevated. No thyromegaly appreciated. Respiratory: Lungs are clear to auscultation. Respirations are non-labored. Breath sounds are equal. Symmetrical chest wall expansion. Cardiovascular: Normal rate. Regular rhythm. 3/6 holosystolic murmur. No gallop. Point of maximal impulse is not appear displaced. Good pulses equal in all extremities. No edema. Gastrointestinal: Soft. Normal bowel sounds. Skin: Skin turgor is normal. There is no pallor. Musculoskeletal: No kyphosis or scoliosis appreciated. Neurologic: Alert and oriented to person, place, time. Cranial nerves 3-12 appear grossly intact. The patient has good motor tone strength in the upper and lower extremities bilaterally. Psychiatric: Cooperative. Appropriate mood & affect. Labs Laboratory Tests Test 07/29/21 18:31 07/29/21 18:45 07/29/21 19:20 07/29/21 22:11 Range/Units White Blood Count 10.3 4.3-11.0 10^3/uL Red Blood Count 3.34 L 3.80-5.11 10^6/uL Hemoglobin 9.6 L 11.5-16.0 g/dL Hematocrit 29 L 35-52 % Mean Corpuscular Volume 88 80-99 fL Mean Corpuscular Hemoglobin 29 25-34 pg Mean Corpuscular Hemoglobin Concent 33 32-36 g/dL Red Cell Distribution Width 14.6 H 10.0-14.5 % Platelet Count 430 H 130-400 10^3/uL Mean Platelet Volume 9.6 9.0-12.2 fL Immature Granulocyte % (Auto) 1 % Neutrophils (%) (Auto) 70 42-75 % Lymphocytes (%) (Auto) 18 12-44 % Monocytes (%) (Auto) 8 0-12 % Eosinophils (%) (Auto) 2 0-10 % Basophils (%) (Auto) 1 0-10 % Neutrophils # (Auto) 7.2 1.8-7.8 10^3/uL Lymphocytes # (Auto) 1.8 1.0-4.0 10^3/uL Monocytes # (Auto) 0.8 0.0-1.0 10^3/uL Eosinophils # (Auto) 0.2 0.0-0.3 10^3/uL Basophils # (Auto) 0.1 0.0-0.1 10^3/uL Immature Granulocyte # (Auto) 0.1 0.0-0.1 10^3/uL Prothrombin Time 12.9 12.2-14.7 SEC INR Comment 0.9 0.8-1.4 Activated Partial Thromboplast Time 27 24-35 SEC Sodium Level 132 L 135-145 MMOL/L Potassium Level 4.4 3.6-5.0 MMOL/L Chloride Level 103 98-107 MMOL/L Carbon Dioxide Level 19 L 21-32 MMOL/L Anion Gap 10 5-14 MMOL/L Blood Urea Nitrogen 47 H 7-18 MG/DL Creatinine 2.29 H 0.60-1.30 MG/DL Estimat Glomerular Filtration Rate 24 BUN/Creatinine Ratio 21 Glucose Level 388 H 70-105 MG/DL Calcium Level 7.9 L 8.5-10.1 MG/DL Corrected Calcium 8.8 8.5-10.1 MG/DL Magnesium Level 1.9 1.6-2.4 MG/DL Total Bilirubin 0.1 0.1-1.0 MG/DL Aspartate Amino Transf (AST/SGOT) 34 5-34 U/L Alanine Aminotransferase (ALT/SGPT) 28 0-55 U/L Alkaline Phosphatase 140 H 40-136 U/L Myoglobin 129.7 H 10.0-92.0 NG/ML Troponin I 0.058 H <0.028 NG/ML Total Protein 6.1 L 6.4-8.2 GM/DL Albumin 2.9 L 3.2-4.5 GM/DL Lactic Acid Level 1.18 0.50-2.00 MMOL/L Urine Color YELLOW Urine Clarity SL CLOUDY Urine pH 6.0 5-9 Urine Specific [place] 1.020 1.016-1.022 Urine Protein 2+ H NEGATIVE Urine Glucose (UA) 3+ H NEGATIVE Urine Ketones NEGATIVE NEGATIVE Urine Nitrite NEGATIVE NEGATIVE Urine Bilirubin NEGATIVE NEGATIVE Urine Urobilinogen 0.2 < = 1.0 MG/DL Urine Leukocyte Esterase NEGATIVE NEGATIVE Urine RBC (Auto) 3+ H NEGATIVE Urine RBC 25-50 H /HPF Urine WBC 10-25 H /HPF Urine Squamous Epithelial Cells 0-2 /HPF Urine Crystals NONE /LPF Urine Bacteria TRACE /HPF Urine Casts PRESENT /LPF Urine Hyaline Casts 0-2 H /LPF Urine Mucus NEGATIVE /LPF Urine Culture Indicated NO Glucometer 195 H 70-110 MG/DL Test 07/30/21 04:56 07/30/21 05:02 Range/Units Glucometer 270 H 70-110 MG/DL White Blood Count 8.9 4.3-11.0 10^3/uL Red Blood Count 3.16 L 3.80-5.11 10^6/uL Hemoglobin 9.1 L 11.5-16.0 g/dL Hematocrit 28 L 35-52 % Mean Corpuscular Volume 88 80-99 fL Mean Corpuscular Hemoglobin 29 25-34 pg Mean Corpuscular Hemoglobin Concent 33 32-36 g/dL Red Cell Distribution Width 14.4 10.0-14.5 % Platelet Count 397 130-400 10^3/uL Mean Platelet Volume 9.5 9.0-12.2 fL Immature Granulocyte % (Auto) 1 % Neutrophils (%) (Auto) 59 42-75 % Lymphocytes (%) (Auto) 25 12-44 % Monocytes (%) (Auto) 8 0-12 % Eosinophils (%) (Auto) 6 0-10 % Basophils (%) (Auto) 1 0-10 % Neutrophils # (Auto) 5.3 1.8-7.8 10^3/uL Lymphocytes # (Auto) 2.2 1.0-4.0 10^3/uL Monocytes # (Auto) 0.7 0.0-1.0 10^3/uL Eosinophils # (Auto) 0.5 H 0.0-0.3 10^3/uL Basophils # (Auto) 0.1 0.0-0.1 10^3/uL Immature Granulocyte # (Auto) 0.1 0.0-0.1 10^3/uL Sodium Level 138 135-145 MMOL/L Potassium Level 3.9 3.6-5.0 MMOL/L Chloride Level 106 98-107 MMOL/L Carbon Dioxide Level 21 21-32 MMOL/L Anion Gap 11 5-14 MMOL/L Blood Urea Nitrogen 43 H 7-18 MG/DL Creatinine 1.94 H 0.60-1.30 MG/DL Estimat Glomerular Filtration Rate 29 BUN/Creatinine Ratio 22 Glucose Level 298 H 70-105 MG/DL Calcium Level 8.1 L 8.5-10.1 MG/DL Corrected Calcium 9.2 8.5-10.1 MG/DL Total Bilirubin 0.2 0.1-1.0 MG/DL Aspartate Amino Transf (AST/SGOT) 17 5-34 U/L Alanine Aminotransferase (ALT/SGPT) 17 0-55 U/L Alkaline Phosphatase 127 40-136 U/L Troponin I 0.097 H <0.028 NG/ML Total Protein 5.5 L 6.4-8.2 GM/DL Albumin 2.6 L 3.2-4.5 GM/DL Triglycerides Level 263 H <150 MG/DL Cholesterol Level 180 < 200 MG/DL LDL Cholesterol Direct 106 1-129 MG/DL VLDL Cholesterol 53 H 5-40 MG/DL HDL Cholesterol 35 L 40-60 MG/DL Radiology REG[facility] NUCLEAR STRESS TEST (03/15/2021): 1. No evidence of any significant myocardial ischemia or infarction is seen. 2. Normal regional wall motion. 3. Normal global left ventricular systolic function with a calculated ejection fraction of 61%. ECG Impression ECG Comment Electrocardiogram obtained in the emergency room on 07/29/2021 showed sinus rhythm with nonspecific inferolateral T wave changes. Diagnosis/Problems Diagnosis/Problems (1) Paroxysmal atrial fibrillation Assessment & Plan: This is a new finding in this patient. This has now resolved. She was asymptomatic with this. The hospitalist has started her on long-acting diltiazem which is not unreasonable. Since this was 1 isolated event, I do not see any urgent need to start her on oral anticoagulation. H owever, she will need to follow-up with our office. She may need event monitoring to screen for any ongoing asymptomatic atrial fibrillation. (2) Elevated troponin Status: Acute Assessment & Plan: This was most likely noncardiac elevation of the troponin due to her acute kidney injury on chronic kidney disease disease and does not represent an acute myocardial infarction. The troponin levels are now trending downward. From a cardiac standpoint, the patient can be discharged home. (3) Coronary artery disease without angina pectoris Assessment & Plan: She had previous coronary artery bypass surgery. As above, she had a stress test in the fall 2020 that was normal. She has not been having any angina. I recommend she continue on aspirin, clopidogrel, and statin medication. She has also been started on diltiazem by the hospitalist. There are no indications for an ischemic evaluation at this time. (4) Peripheral arterial disease Assessment & Plan: She had a previous percutaneous intervention. She is not having claudication. She should continue on aspirin, clopidogrel, and statin medication. Cigarette smoking cessation is of paramount importance. (5) Primary hypertension Assessment & Plan: She was on amlodipine at home which has been restarted. She is now also on diltiazem as outlined above. I recommend she be discharged on this combination of medications. (6) Mixed hyperlipidemia Assessment & Plan: Continue statin medication. (7) Acute kidney injury superimposed on chronic kidney disease Status: Acute Assessment & Plan: As above, this was most likely responsible for the marginal ly elevated troponin level. (8) Cigarette smoker Assessment & Plan: As above, she needs to work on quitting smoking. The combination of diabetes mellitus and cigarette smoking will just lead to rapid progression of her coronary artery disease and peripheral vascular disease. SEB STRANGE JR, MD Jul 30, 2021 11:07
[2021-07-30 11:43] VITALS: BP 162/70
[2021-07-30 11:54] VITALS: BP 152/70
[2021-07-30] MEDS ORDERED: DILT-27 PO (12:29)
[2021-07-30] MEDS ORDERED: CEFD300C3 PO (12:29)
[2021-07-30] MEDS ORDERED: APIX2.5T PO (12:29)
[2021-07-30 15:12] VITALS: BP 152/70
[2021-07-30] MEDS ORDERED: GABAPENTIN 100 MG (NEURONTIN) CAP PO SCH (21:00)
[2021-07-30] MEDS ORDERED: MONTELUKAST 10 MG (SINGULAIR) TAB PO SCH (21:00)
== END 2021-07-30 15:12 | disposition home or self-care (01) ==
LOC: EDUNIT# 17:57 → ER 17:59 → 4TH 19:40
PROVIDERS: ADMIT Internal Medicine; ATTEND Internal Medicine
DX: I48.20 Chronic atrial fibrillation, unspecified (principal); I48.0 Paroxysmal atrial fibrillation; F17.210 Nicotine dependence, cigarettes, uncomplicated; J44.9 Chronic obstructive pulmonary disease, unspecified; I12.9 Hypertensive chronic kidney disease with stage 1 through stage 4 chronic kidney disease, or unspecified chronic kidney disease; E10.22 Type 1 diabetes mellitus with diabetic chronic kidney disease; E10.40 Type 1 diabetes mellitus with diabetic neuropathy, unspecified; I27.20 Pulmonary hypertension, unspecified; N18.32 Chronic kidney disease, stage 3b; E78.00 Pure hypercholesterolemia, unspecified; I25.10 Atherosclerotic heart disease of native coronary artery without angina pectoris; E03.9 Hypothyroidism, unspecified; I25.2 Old myocardial infarction; K21.9 Gastro-esophageal reflux disease without esophagitis; F41.9 Anxiety disorder, unspecified; F32.A Depression, unspecified; I73.9 Peripheral vascular disease, unspecified; N12 Tubulo-interstitial nephritis, not specified as acute or chronic; E78.2 Mixed hyperlipidemia; N17.9 Acute kidney failure, unspecified; Z79.01 Long term (current) use of anticoagulants; Z95.1 Presence of aortocoronary bypass graft; Z79.82 Long term (current) use of aspirin; Z79.2 Long term (current) use of antibiotics; Z79.891 Long term (current) use of opiate analgesic
CPT/HCPCS: 36415; 71045; 80053; 80061; 81000; 82947; 83605; 83735; 83874; 84484; 85025; 85610; 85730; 87040; 87088; 93005; 93041; 94640; 94760; G0378

== ENCOUNTER → 2021-09-09 | Outpatient (CLI) | payer OTHER ==
[~2021-09-09] MED LIST changes: +ALBU90AE INH; +AMLO-250 PO; +APIX2.5T PO; +CALC0.253 PO; +DILT-27 PO; +FLUT1BLS3 IH; +PROM25TA14 PO
[2021-09-09 13:40] VITALS: BP 121/61
[2021-09-09 14:20] LABS: BASOPHILS # (AUTO) 0.2 10^3/uL (0.0-0.1); BASOPHILS % (AUTO) 1 % (0-10); EOSINOPHILS # (AUTO) 0.2 10^3/uL (0.0-0.3); EOSINOPHILS % (AUTO) 1 % (0-10); HEMATOCRIT 33 % (35-52); HEMOGLOBIN 10.4 g/dL (11.5-16.0); LYMPHOCYTES # (AUTO) 1.9 10^3/uL (1.0-4.0); LYMPHOCYTES % (AUTO) 14 % (12-44); MEAN CORPUSCULAR HEMOGLOBIN 28 pg (25-34); MEAN CORPUSCULAR HGB CONC 32 g/dL (32-36); MEAN CORPUSCULAR VOLUME 89 fL (80-99); MEAN PLATELET VOLUME 9.2 fL (9.0-12.2); MONOCYTES # (AUTO) 0.6 10^3/uL (0.0-1.0); MONOCYTES % (AUTO) 4 % (0-12); NEUTROPHILS # (AUTO) 10.9 10^3/uL (1.8-7.8); NEUTROPHILS % (AUTO) 78 % (42-75); PLATELET COUNT 449 10^3/uL (130-400); WHITE BLOOD COUNT 13.9 10^3/uL (4.3-11.0)
[2021-09-09 14:31] LABS: ALBUMIN 2.8 GM/DL (3.2-4.5); POTASSIUM 4.3 MMOL/L (3.6-5.0)
[2021-09-09 14:32] LABS: CALCIUM 8.5 MG/DL (8.5-10.1)
[2021-09-09 14:34] LABS: TOTAL PROTEIN 6.1 GM/DL (6.4-8.2)
[2021-09-09 14:35] LABS: BILIRUBIN,TOTAL 0.3 MG/DL (0.1-1.0)
[2021-09-09 14:37] LABS: CREATININE SERUM 1.48 MG/DL (0.60-1.30); PHOSPHORUS 3.6 MG/DL (2.3-4.7)
[2021-09-09 14:45] LABS: BAND NEUTROPHILS 1 %; BASOPHILS % (MANUAL) 1 %; EOSINOPHILS % (MANUAL) 2 %; LYMPHOCYTES % (MANUAL) 13 %; MONOCYTES % (MANUAL) 4 %; NEUTROPHILS % (MANUAL) 79 %; RBC MORPH NORMAL
== END ==
LOC: SDC 13:23
PROVIDERS: ATTEND Pediatrics
DX: I48.91 Unspecified atrial fibrillation (principal); E03.9 Hypothyroidism, unspecified; N18.32 Chronic kidney disease, stage 3b
CPT/HCPCS: 36415; 36591; 80053; 80069; 83880; 84443; 85007; 85027

== ENCOUNTER 2021-10-25 03:20 | Emergency (ER) | payer OTHER ==
[~2021-10-25] VITALS: Ht 162.5 cm; Wt 60.0 kg
[~2021-10-25 03:20] MED LIST changes: +DILT240C91 PO; +MECL-215 PO
[2021-10-25] MEDS ORDERED: inSUlin (REGULAR) HUMAN 1 UNIT/0.01 ML (CHARGE PER UNIT) IV STA (03:29)
[2021-10-25] MEDS ORDERED: inSUlin (REGULAR) HUMAN 1 UNIT/0.01 ML (CHARGE PER UNIT) SC STA (03:29)
[2021-10-25] MEDS ORDERED: NS IV 1000 ML 1,000 ML IV SCH (03:30)
[2021-10-25 03:36] LABS: BASOPHILS # (AUTO) 0.2 10^3/uL (0.0-0.1); BASOPHILS % (AUTO) 1 % (0-10); EOSINOPHILS % (AUTO) 0 % (0-10); HEMATOCRIT 40 % (35-52); HEMOGLOBIN 11.6 g/dL (11.5-16.0); LYMPHOCYTES # (AUTO) 1.7 10^3/uL (1.0-4.0); LYMPHOCYTES % (AUTO) 5 % (12-44); MEAN CORPUSCULAR HEMOGLOBIN 28 pg (25-34); MEAN CORPUSCULAR HGB CONC 29 g/dL (32-36); MEAN CORPUSCULAR VOLUME 94 fL (80-99); MEAN PLATELET VOLUME 9.5 fL (9.0-12.2); MONOCYTES # (AUTO) 1.5 10^3/uL (0.0-1.0); MONOCYTES % (AUTO) 4 % (0-12); NEUTROPHILS # (AUTO) 32.9 10^3/uL (1.8-7.8); NEUTROPHILS % (AUTO) 88 % (42-75); PLATELET COUNT 560 10^3/uL (130-400)
--- NOTE | 2021-10-25 03:37 | ED General ---
General Stated Complaint: DKA Source of Information: EMS Exam Limitations: Physical Impairments History of Present Illness Date Seen by Provider: Oct 25, 2021 Time Seen by Provider: 03:28 Initial Comments Patient is a 61-year-old female presents to the emergency department today with a chief complaint of altered mental status, suspicion for DKA. Patient was found just prior to EMS arrival by family members in the bed poorly responsive. History of atrial fibrillation with rapid ventricular response. Questionable adherence to medications at home. EMS reports blood sugar too high to read. Patient is able to say yes and no but has kussmaul breathing and overall poor responsiveness. She is quite tachycardic in the 130s. EKG reflects atrial flutter at 160. Blood pressure is 112 systolic. She is moving all 4 extremities. Appears extremely dry. Review of systems is limited secondary to the patient's critical state. [id number] Further history from patient's sister and daughter are that the patient has been feeling very poorly over the last several days. She has had frequent falls in recent weeks. They do admit that she is very poorly compliant with her home medications. They cannot state with any degree of certainty as to whether or not she has been taking her blood thinners or heart medications. Sister did state that she talk to her earlier today. She was slurring her words. They went to check on her this morning just prior to arrival and found her more confused and poorly responsive and subsequently they called EMS. Timing/Duration: 1 Week Severity: Severe Allergies and Home Medications Allergies Coded Allergies: ciprofloxacin (Verified Allergy, Mild, redness and itching , 12/04/18) redness and itching at iv site Patient Home Medication List Home Medication List Reviewed: Yes Albuterol Sulfate (Proair Respiclick) 90 Mcg Aer.pow.ba, 90 MCG INH Q4H PRN for WHEEZING, (Reported) Entered as Reported by: ERROL DAVIS on 07/30/21330 Amlodipine Besylate (Amlodipine Besylate) 5 Mg Tablet, 5 MG PO DAILY, (Reported) Entered as Reported by: ERROL DAVIS on 07/30/21330 Apixaban (Eliquis) 2.5 Mg Tablet, 2.5 MG PO BID Prescribed by: TONG MAGALLON on 07/30/21 1229 Aspirin (Aspirin) 81 Mg Tab.chew, 81 MG PO DAILY, (Reported) Entered as Reported by: TALAT CASTELLANOS on 12/04/18 1404 Atorvastatin Calcium (Atorvastatin Calcium) 40 Mg Tablet, 40 MG PO HS, (Reported) Entered as Reported by: JUAN R PEDROZA on 11/09/20 1153 Buspirone HCl (Buspirone HCl) 5 Mg Tablet, 5 MG PO BID, (Reported) Entered as Reported by: EFE PATTERSON on 12/20/15 1348 Calcitriol (Calcitriol) 0.25 Mcg Capsule, 0.25 MCG PO DAILY, (Reported) Entered as Reported by: ERROL DAVIS on 07/30/21 033 Clopidogrel Bisulfate (Clopidogrel) 75 Mg Tablet, 75 MG PO DAILY, (Reported) Entered as Reported by: JUAN R PEDROZA on 09/03/20 1559 Diltiazem HCl (Diltiazem 24Hr ER) 240 Mg Cap.er.24h, 240 MG PO DAILY Prescribed by: TONG MAGALLON on 10/15/21 1157 Docusate Sodium (Colace) 100 Mg Capsule, 100 MG PO DAILY PRN for CONSTIPATION- 1ST LINE, (Reported) Entered as Reported by: JUAN R PEDROZA on 11/09/20 115 Fluticasone/Umeclidin/Vilanter (Trelegy Ellipta 100-62.5-25) 1 Each Blst.w.dev, 1 EACH IH DAILY, (Reported) Entered as Reported by: ERROL DAVIS on 07/30/21 033 Gabapentin (Gabapentin) 100 Mg Capsule, 100 MG PO HS, (Reported) Entered as Reported by: EFE PATTERSON on 12/20/15 1348 Hydrocodone/Acetaminophen (Hydrocodone-Acetamin 5-325 mg) 1 Each Tablet, 5-325 MG PO Q6H PRN for PAIN-BREAKTHROUGH, (Reported) Entered as Reported by: ERROL DAVIS on 07/30/21 033 Hyoscyamine Sulfate (Hyoscyamine Sulfate) 0.125 Mg Tab.subl, 0.125 MG SL Q4H PRN for SPASMS Prescribed by: DAWSON DEL ROSARIO on 11/12/20 1020 Insulin Aspart (Insulin Aspart) 100 Unit/1 Ml Vial, 12 UNITS SC TIDAC, (Reported) Entered as Reported by: JUAN R PEDROZA on 11/09/20 1153 Insulin Determir (Levemir) 1,000 Units/10 Ml Soln, 14 UNITS SQ BID, (Reported) Entered as Reported by: JUAN R PEDROZA on 11/09/20 1153 Levothyroxine Sodium (Euthyrox) 175 Mcg Tablet, 175 MCG PO DAILY, (Reported) Entered as Reported by: JUAN R PEDROZA on 09/03/20 1559 Lisinopril (Lisinopril) 20 Mg Tablet, 10 MG PO HS, (Reported) Entered as Reported by: ERROL DAVIS on 07/30/21 033 Meclizine HCl (Meclizine HCl) 12.5 Mg Tablet, 12.5 MG PO Q6H PRN for DIZZINESS Prescribed by: TONG MAGALLON on 10/15/21 1157 Montelukast Sodium (Montelukast Sodium) 10 Mg Tablet, 10 MG PO HS, (Reported) Entered as Reported by: ERROL DAVIS on 07/30/21330 Pantoprazole Sodium (Pantoprazole Sodium) 40 Mg Tablet.dr, 40 MG PO DAILY, (Reported) Entered as Reported by: JUAN R PEDROZA on 11/09/20 1153 Paroxetine HCl (Paroxetine HCl) 40 Mg Tablet, 40 MG PO DAILY, (Reported) Entered as Reported by: LUIS TOWNSEND on 11/30/15 1408 Promethazine HCl (Promethazine Tablet) 25 Mg Tablet, 25 MG PO Q8H PRN for NAUSEA/VOMITING, (Reported) Entered as Reported by: ERROL DAVIS on 07/30/21 033 Review of Systems Review of Systems Constitutional: see HPI Gastrointestinal: abdominal pain Review of systems unobtainable secondary to patient's critical state Past Kdontlh-Rygstc-Ynubnb Hx Immunizations Up To Date Tetanus Booster (TDap): Unknown PED Vaccines UTD: No First/Initial COVID19 Vaccinat: 07/2020 Second COVID19 Vaccination Rakesh: 08/2020 Third COVID19 Vaccination Date: 07/2020 Seasonal Allergies Seasonal Allergies: No Past Medical History Surgery/Hospitalization HX: GALL BLADDER, UTI Surgeries: Yes Abdominal, Cardiac, CABG, Gallbladder, 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, Oophorectomy, Orthopedic, Thyroidectomy, Vascular Surgery Respiratory: Yes COPD Currently Using CPAP: No Currently Using BIPAP: No Cardiac: Yes (RIGHT ILIAC STENT; 4 VESSEL CABG AND RIGHT CAROTID ENDARTERECTOMY 12/2015) Atrial Fibrillation, Coronary Artery Disease, High Cholesterol, Hypertension, Peripheral Vascular Neurological: Yes Headaches /Migraines, Neuropathy Reproductive Disorders: No Female Reproductive Disorders: Denies [employer] 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, Menopausal Sexually Transmitted Disease: No HIV/AIDS: No Genitourinary: No Gastrointestinal: Yes Gastroesophageal Reflux, Chronic Constipation, Chronic Diarrhea, Hiatal Hernia Musculoskeletal: Yes (CHRONIC NECK PAIN--S/P CERVICAL FUSION) Degenerate Disk Disease, Chronic Back Pain Endocrine: Yes Diabetes, Insulin dep, Hypothyroidsim HEENT: No Loss of Vision: Denies Hearing Impairment: Denies Cancer: No Psychosocial: Yes Anxiety, Depression Integumentary: Yes (PREVIOUS ABCESSES) Blood Disorders: No Adverse Reaction/Blood Tranf: No Family Medical History Cancer G8 BROTHER, Onset:Unknown G8 BROTHER, Onset:Unknown Cancer of colon G8 BROTHER, Onset:Unknown Chest pain 19 MOTHER, Onset:Unknown Colon cancer Congestive heart failure 19 FATHER, Onset:60 years & older Family history: Alzheimer's disease 19 MOTHER, Onset:50's - 60 Family history: Arthritis 19 MOTHER, Onset:Unknown Family history: Asthma 19 FATHER, Onset:Unknown Family history: Cardiovascular disease 19 MOTHER, Onset:50's - 60 Family history: Coronary thrombosis 19 MOTHER, Onset:Unknown Family history: Diabetes mellitus 19 MOTHER, Onset:Unknown Family history: Hypertension 19 MOTHER, Onset:50's - 60 Family history: Thyroid disorder 19 MOTHER, Onset:50's - 60 Heart disease 19 MOTHER, Onset:50's - 60 Human immunodeficiency virus (HIV) seropositivity G8 BROTHER, Onset:40's - 50 Myocardial infarction 19 MOTHER, Onset:50's - 60 No Family History of: Abdominal aortic aneurysm Halsey's disease Alcoholism Aphasia Cataract Congenital heart disease Cystic fibrosis Dementia Dysphagia Family history: Allergy Family history: Breast disease Family history: Gastrointestinal disease Family history: Glaucoma Family history: Osteoporosis Headache Hearing loss Hereditary disease History of - anemia History of - disorder History of - respiratory disease History of drug abuse Hypercholesterolemia Infertile Kidney disease Malignant neoplasm of lung Parkinson's disease Prostate cancer Psychotic disorder Seizure disorder Stroke Tuberculosis Visual impairment PSH: -RIGHT ILIAC ARTERY STENT -4 VESSEL CABG 12/2015 -RIGHT CAROTID ENDARTERECTOMY 12/2015 -TONSILLECTOMY -HYSTERECTOMY/BSO -LAPAROSCOPIC RENETTA FUNDOPLICATION -CERVICAL SPINE FUSION Physical Exam Vital Signs Vital Signs - First Documented 10/25/21 03:35 Temp 36.9 Pulse 118 Resp 30 B/P (MAP) 113/89 (97) Pulse Ox 100 O2 Delivery Non Rebreather O2 Flow Rate 15.00 Capillary Refill : Height, Weight, BMI Height: 5'5.00" Weight: 125lbs. 0.0oz. [id number]; 17.52 BMI Method:Stated General Appearance: Chronically ill, Cachetic Eyes: Bilateral Eye PERRL HEENT: Other (Extremely dry oral mucosa, poor dentition) Neck: Normal Inspection Respiratory: Lungs Clear, Normal Breath Sounds, No Accessory Muscle Use, No Respiratory Distress Cardiovascular: Tachycardia (160), Other (peripheral pulses - feel irregular; dusky cyanotic toes both feet) Gastrointestinal: Soft, Tenderness (Diffuse tenderness) Extremity: Normal Range of Motion, No Pedal Edema, Slow Capillary Refill Neurologic/Psychiatric: Alert, Other (Eyes open, responsive and localizes to pain. Not really verbal; no obvious motor deficits - moving all extremities equally) Skin: Warm/Dry, Mottled (LE's) Focused Exam Sepsis Stage: Severe Sepsis Possible Source: Pulmonary Lactate Level 10/25/21 04:02: Lactic Acid Level 4.23*H Time of Focused Exam: 04:57 Respiratory: Lungs Clear, No Accessory Muscle Use, Other (kussmaul) Cardiovascular: Irregularly Irregular, Tachycardia (120) Capillary Refill: Greater Than 3 Seconds Peripheral Pulses: 1+ Radial Pulses (R), 1+ Radial Pulses (L) Skin: warm/dry, cyanosis (tips of toes), mottled Lactic Acid Level Laboratory Tests Test 10/25/21 04:02 Lactic Acid Level 4.23 MMOL/L (0.50-2.00) *H Within 3hrs of presentation: Admin fluids, Admin 30ml/kg IBW due to BMI>30, Admin ABX, Blood cultures prior to ABX's, Focus exam, Lactate level Procedures/Interventions Lumen: triple Central Line Procedure: betadine prep, sterile drapes applied, sterile dressing applied Position: femoral (R) Anesthesia: Lidocaine Volume Anesthetic (ccs): 4 Complications: none Post Position: sutured, good blood return Progress/Results/Core Measures Suspected Sepsis SIRS Temperature: Pulse: Respiratory Rate: Laboratory Tests 10/25/21 03:30: White Blood Count 37.3*H Blood Pressure / Mean: 10/25/21 04:02: Lactic Acid Level 4.23*H Laboratory Tests 10/25/21 03:30: Creatinine 3.26H, INR Comment 1.1, Platelet Count 560H, Total Bilirubin 0.2 Results/Orders Lab Results Laboratory Tests Test 10/25/21 03:30 10/25/21 03:42 10/25/21 04:02 10/25/21 04:06 Range/Units White Blood Count 37.3 *H 4.3-11.0 10^3/uL Red Blood Count 4.22 3.80-5.11 10^6/uL Hemoglobin 11.6 11.5-16.0 g/dL Hematocrit 40 35-52 % Mean Corpuscular Volume 94 80-99 fL Mean Corpuscular Hemoglobin 28 25-34 pg Mean Corpuscular Hemoglobin Concent 29 L 32-36 g/dL Red Cell Distribution Width 15.5 H 10.0-14.5 % Platelet Count 560 H 130-400 10^3/uL Mean Platelet Volume 9.5 9.0-12.2 fL Immature Granulocyte % (Auto) 3 % Neutrophils (%) (Auto) 88 H 42-75 % Lymphocytes (%) (Auto) 5 L 12-44 % Monocytes (%) (Auto) 4 0-12 % Eosinophils (%) (Auto) 0 0-10 % Basophils (%) (Auto) 1 0-10 % Neutrophils # (Auto) 32.9 H 1.8-7.8 10^3/uL Lymphocytes # (Auto) 1.7 1.0-4.0 10^3/uL Monocytes # (Auto) 1.5 H 0.0-1.0 10^3/uL Eosinophils # (Auto) 0.0 0.0-0.3 10^3/uL Basophils # (Auto) 0.2 H 0.0-0.1 10^3/uL Immature Granulocyte # (Auto) 1.0 H 0.0-0.1 10^3/uL Neutrophils % (Manual) 80 % Lymphocytes % (Manual) 6 % Monocytes % (Manual) 7 % Band Neutrophils 7 % Blood Morphology Comment NORMAL Prothrombin Time 14.5 12.2-14.7 SEC INR Comment 1.1 0.8-1.4 Activated Partial Thromboplast Time 29 24-35 SEC Sodium Level 125 *L 135-145 MMOL/L Potassium Level 5.1 H 3.6-5.0 MMOL/L Chloride Level 88 L 98-107 MMOL/L Carbon Dioxide Level < 5 *L 21-32 MMOL/L Anion Gap 32 H 5-14 MMOL/L Blood Urea Nitrogen 57 H 7-18 MG/DL Creatinine 3.26 H 0.60-1.30 MG/DL Estimat Glomerular Filtration Rate 16 BUN/Creatinine Ratio 17 Glucose Level 1007 *H 70-105 MG/DL Calcium Level 8.4 L 8.5-10.1 MG/DL Corrected Calcium 9.2 8.5-10.1 MG/DL Total Bilirubin 0.2 0.1-1.0 MG/DL Aspartate Amino Transf (AST/SGOT) 17 5-34 U/L Alanine Aminotransferase (ALT/SGPT) 16 0-55 U/L Alkaline Phosphatase 165 H 40-136 U/L Total Protein 6.1 L 6.4-8.2 GM/DL Albumin 3.0 L 3.2-4.5 GM/DL Beta-Hydroxybutyrate (Chem panel) 13.75 H 0.00-0.27 MMOL/L Urine Color YELLOW Urine Clarity CLEAR Urine pH 5.0 5-9 Urine Specific [place] 1.020 1.016-1.022 Urine Protein 2+ H NEGATIVE Urine Glucose (UA) 3+ H NEGATIVE Urine Ketones 3+ H NEGATIVE Urine Nitrite NEGATIVE NEGATIVE Urine Bilirubin NEGATIVE NEGATIVE Urine Urobilinogen 0.2 < = 1.0 MG/DL Urine Leukocyte Esterase NEGATIVE NEGATIVE Urine RBC (Auto) 1+ H NEGATIVE Urine RBC RARE /HPF Urine WBC NONE /HPF Urine Squamous Epithelial Cells 2-5 /HPF Urine Crystals NONE /LPF Urine Bacteria TRACE /HPF Urine Casts NONE /LPF Urine Mucus NEGATIVE /LPF Urine Culture Indicated CULTURE PENDING Lactic Acid Level 4.23 *H 0.50-2.00 MMOL/L Blood Gas Puncture Site RIGHT RADIAL Blood Gas Patient Temperature 36.9 Arterial Blood pH 6.98 *L 7.37-7.43 Arterial Blood Partial Pressure CO2 14 *L 35-45 MMHG Arterial Blood Partial Pressure O2 103 H 79-93 MMHG Arterial Blood HCO3 3 *L 23-27 MMOL/L Arterial Blood Total CO2 3.5 *L 21.0-31.0 MMOL/L Arterial Blood Oxygen Saturation 96 94-100 % Arterial Blood Base Excess -26.5 L -2.5-2.5 MMOL/L Scar Test YES-POS Blood Gas Ventilator Setting NO Blood Gas Inspired Oxygen 15L My Orders Orders - SANIA HYDE MD Cbc With Automated Diff (10/25/21 03:29) Comprehensive Metabolic Panel (10/25/21 03:29) Blood Culture (10/25/21 03:29) Sputum Culture (10/25/21 03:29) Urinalysis (10/25/21:29) Urine Culture (10/25/21:29) Protime With Inr (10/25/21:29) Partial Thromboplastin Time (10/25/21:29) Chest 1 View, Ap/Pa Only (10/25/21:29) Ed Iv/Invasive Line Start (10/25/21:29) Ed Iv/Invasive Line Start (10/25/21:29) Vital Signs Adult Sepsis Patie Q15M (10/25/21 03:29) O2 (10/25/21 03:29) Remove Rings In Anticipation O (10/25/21:29) Lactic Acid Analyzer (10/25/21:29) Ekg Tracing (10/25/21:29) Accucheck Stat ONCE (10/25/21 03:29) Insulin (Regular) Human (Novolin R (Per (10/25/21 03:29) Insulin (Regular) Human (Novolin R (Per (10/25/21 03:29) Ns Iv 1000 Ml (Sodium Chloride 0.9%) (10/25/21 03:30) Communication For Respiratory (10/25/21 03:29) Beta Hydroxybutyrate (10/25/21 03:29) Catheter(Urinary) Insert & Ass 03,15 (10/25/21 03:31) Diltiazem Injection (Cardizem Injection) (10/25/21 03:45) Manual Differential (10/25/21 03:30) Arterial Blood Gas (10/25/21 04:09) Ct Head Wo (10/25/21 04:17) Insulin Regular Drip (Myxredlin 100 Unit (10/25/21 04:30) Cefepime Injection (Maxipime Injection) (10/25/21 05:00) Sodium Bicarbonate 8.4% Syr (Sodium Bica (10/25/21 05:30) Basic Metabolic Panel (10/25/21 05:23) Accucheck Q1hr Q1HR (10/25/21 05:23) 1/2 Ns Iv Solution (0.45% Sodium Chlorid (10/25/21 05:30) Sodium Bicarbonate 8.4% Syr (Sodium Bica (10/25/21 05:30) Sodium Bicarbonate 8.4% Syr (Sodium Bica (10/25/21 05:45) Sodium Bicarbonate 8.4% Vial (Sodium Bic (10/25/21 05:33) Heparin (Bolus Per Protocol) (Heparin (B (10/25/21 06:00) Heparin Drip 75893 Unit/500ml (Heparin (10/25/21 06:17) Ekg Tracing (10/25/21 06:44) Medications Given in ED Current Medications Medications Dose Ordered Sig/Janet Route Start Time Stop Time Status Last Admin Dose Admin Cefepime HCl 1000 mg/Sodium Chloride 50 ml @ 100 mls/hr ONCE ONCE IV 10/25/21 05:00 10/25/21 05:29 DC 10/25/21 05:15 100 MLS/HR Diltiazem HCl 10 mg ONCE ONCE IVP 10/25/21 03:45 10/25/21 03:46 DC 10/25/21 03:49 10 MG Heparin Sodium (Porcine) HEPARIN FULL PROTOC... ONCE ONCE IV 10/25/21 06:00 10/25/21 06:01 DC 10/25/21 06:34 4,800 UNIT Heparin Sodium/ Dextrose 500 ml @ ud STK-MED ONCE IV 10/25/21 06:17 10/25/21 06:22 DC 10/25/21 06:35 1,000 MLS/HR Sodium Bicarbonate 50 meq ONCE ONCE IV 10/25/21 05:30 10/25/21 05:31 DC 10/25/21 05:40 50 MEQ Sodium Bicarbonate 50 meq STK-MED ONCE .ROUTE 10/25/21 05:33 10/25/21 05:37 DC 10/25/21 05:44 50 MEQ Vital Signs/I&O 10/25/21 10/25/21 03:35 04:10 Temp 36.9 Pulse 118 Resp 30 B/P (MAP) 113/89 (97) Pulse Ox 100 100 O2 Delivery Non Rebreather Non Rebreather O2 Flow Rate 15.00 15.00 Capillary Refill : Progress Note #1: Time: 04:59 Progress Note Long discussion with family regarding CODE STATUS of the patient. Up until this point Tiffany was not really talking much after the patient's daughter and sister asked to speak privately for a few minutes I went back and reassessed Tiffany. She has slurred speech but is able to tell me that she is at [facility]. When I asked her if she would possibly want ventilator support she said yes. I had spoken with Dr. Magallon on for [facility], she states if the patient needs aggressive treatment such as dialysis or pulmonology that she would recommend that the patient be transferred to a place capable of that. Patient has previously been treated at [facility]. I made a call at 4:50 AM to [facility] direct call, they have ICU beds. Awaiting a callback from Dr. Morejon. Patient steady at a rate of mid 120's - just finishing second liter of NS. BP 100/48. Oxygen sats 97%. CXR reviewed by me - she has what appears to be an infiltrate RUL and RML. Cardiomegaly (this has increased from most recent CXR) Progress Note #2: Time: 05:20 Progress Note Spoke with Dr Morejon @ [facility]. He would like a repeat BMP. 3 amps of bicarb and a drip. He accepts to the ICU. Will await call back with room assignment. Progress Note #3: Time: 05:45 Progress Note Discussed with cards for consult on continued Afib with RVR. will go ahead and heparinize. he suggested consideration of electrical cardioversion vs cardizem. She may need pressors to keep her BP up. Im going to go ahead and place a central line in anticipation of dropping BP - her systolic at this time is 89. Progress Note #4: Time: 06:36 Progress Note Decided to place right femoral central line, in light of ongoing Afib RVR with rates 120-140 still and lowering BP. Ordered heparin and placed line. While placing line - noted that patient spontaneously converted to NSR - rate in the 80's. She tolerated the procedure well./ Accu check immediately post procedure still "HI". Regular insulin drip running at 5u/hr. heparin was started. Antibi otics are in. 2 amps of bicarb have been given - awaiting results of BMP. EMS on their way for transport. Family has been kept updated. ECG Initial ECG Impression Date: Oct 25, 2021 Initial ECG Impression Time: 03:28 Initial ECG Rate: 160 Initial ECG Rhythm: A Fib/Flutter Initial ECG Impression: Atrial Fibrillation w/RVR (A. fib with rapid ventricular response) Comment PVCs noted. EKG : EKG Time: 06:47 Rate: 86 Rhythm: Normal Sinus Intervals normal other than QTc 487 ECG Comparisson: Changed ECG Impression: Nonspecific Changes Comment no ectopy; no ST elevation - converted spontaneously from AFIB RVR Diagnostic Imaging Diagonstic Imaging: Xray Comments [facility], [place] NAME: TIFFANY GRAMAJO [facility] REC#: [id number] PT STATUS: REG ER : 1960 PHYSICIAN: SANIA HYDE MD ADMIT DATE: 10/25/21/ER Draft Date of Exam:10/25/21 CHEST 1 VIEW, AP/PA ONLY INDICATION: Altered mental status. Compared with exam dated 10/14/2021 FINDINGS: Upper sternal wires stable. Left subclavian line projects over the lower SVC stable. Upper limits heart size stable. There is extensive new bilateral multifocal patchy airspace opacities suggestive of multifocal pneumonia. No overt vascular congestion. No pleural fluid or pneumothorax. IMPRESSION: 1. Extensive multifocal bilateral airspace opacities favored to reflect multilobar pneumonia. 2. Nodular opacities on the left owing to callus from old rib fracture deformities noted incidentally. Dictated on workstation # [id number] Dict: 10/25/2119 Trans: 10/25/21 0630 DARON [id number] Interpreted by: BOB MANNING Electronically signed by: Alexianstic Imaging: CT Plain Films/CT/US/NM/MRI: head Comments No acute intracranial abnormalities Critical Care Note Critical Care Start Time: 03:28 Stop Time: 05:46 Total Time (minutes) 90 minutes critical care time in the evaluation and management of this patient presenting with A. fib RVR, DKA, severe sepsis. Time includes initial evaluation and management with fluid resuscitation, initiation of insulin drip, review and interpretation of laboratory studies. Review and interpretation of chest x-ray, CT. Review of medical records. Discussion with hospitalist at this facility as well as with transferring facility. Also discussion with cardiology. Time does not include that spent in procedures (ie central line placement) Departure Impression Primary Impression: DKA (diabetic ketoacidosis) Qualified Codes: E13.10 - Other specified diabetes mellitus with ketoacidosis without coma Additional Impressions: Atrial flutter with rapid ventricular response Severe sepsis Pneumonia Qualified Codes: J18.9 - Pneumonia, unspecified organism Disposition: XFER SHT-TRM HOSP Condition: Critical Admissions Decision to Admit Reason: Admit from ER (General) Transfer Transfer Reason: Exceeds level of care Time Spoke to Accepting Phy: 05:20 Transfer Progress Notes Discussed with Dr Morejon Transfer Time: 07:00 Transfer Facility: [facility] Method of Transfer: EMS Departure-Patient Inst. Referrals: JUAN R MAHMOOD DO (PCP/Family) Primary Care Physician SANIA HYDE MD Oct 25, 2021 03:37
[2021-10-25 03:40] LABS: WHITE BLOOD COUNT 37.3 10^3/uL (4.3-11.0)
[2021-10-25 03:47] LABS: BILIRUBIN,URINE NEGATIVE (NEGATIVE); CLARITY,URINE CLEAR; COLOR,URINE YELLOW; GLUCOSE, URINE (UA) 3+ (NEGATIVE); KETONES,URINE 3+ (NEGATIVE); LEUKOCYTE ESTERASE ,URINE NEGATIVE (NEGATIVE); NITRITE,URINE NEGATIVE (NEGATIVE); PROTEIN,URINE 2+ (NEGATIVE)
[2021-10-25 03:47] LABS: CHLORIDE 88 MMOL/L (98-107); POTASSIUM 5.1 MMOL/L (3.6-5.0)
[2021-10-25 03:48] LABS: CALCIUM 8.4 MG/DL (8.5-10.1)
[2021-10-25 03:49] LABS: INR 1.1 (0.8-1.4); PROTHROMBIN TIME PATIENT 14.5 SEC (12.2-14.7); TOTAL PROTEIN 6.1 GM/DL (6.4-8.2)
[2021-10-25 03:51] LABS: BILIRUBIN,TOTAL 0.2 MG/DL (0.1-1.0)
[2021-10-25 03:52] LABS: ALKALINE PHOSPHATASE 165 U/L (40-136)
[2021-10-25 03:53] LABS: BAND NEUTROPHILS 7 %; CREATININE SERUM 3.26 MG/DL (0.60-1.30); GFR ESTIMATED 16; LYMPHOCYTES % (MANUAL) 6 %; MONOCYTES % (MANUAL) 7 %; NEUTROPHILS % (MANUAL) 80 %; RBC MORPH NORMAL
[2021-10-25 03:54] LABS: BUN/CREATININE RATIO 17
[2021-10-25 03:56] LABS: ALANINE AMINOTRANSFERASE 16 U/L (0-55)
[2021-10-25 04:14] LABS: ABG BASE EXCESS -26.5 MMOL/L (-2.5-2.5); ABG OXYGEN SATURATION 96 % (94-100); ABG PO2 103 MMHG (79-93)
[2021-10-25 04:15] LABS: ABG PH 6.98 (7.37-7.43)
[2021-10-25 04:16] LABS: ABG PCO2 14 MMHG (35-45); ABG TCO2 3.5 MMOL/L (21.0-31.0); ALLENS TEST YES-POS; INSPIRED O2 15L; PATIENT TEMP 36.9; VENTILATOR NO
[2021-10-25 04:17] LABS: CARBON DIOXIDE < 5 MMOL/L (21-32); GLUCOSE 1007 MG/DL (70-105); SODIUM 125 MMOL/L (135-145)
[2021-10-25 04:31] LABS: BACTERIA,URINE TRACE /HPF; RBC,URINE RARE /HPF
[2021-10-25] MEDS ORDERED: CEFEPIME INJECTION 1,000 MG in NS (IVPB) 50 ML IV ONE (05:00)
[2021-10-25] MEDS ORDERED: SODIUM BICARB 8.4% 50 MEQ/50 ML (ABBOTT) SYR IV ONE ×3 (05:30→05:45)
[2021-10-25] MEDS ORDERED: 1/2 NS IV SOLUTION 1,000 ML IV SCH (05:30)
[2021-10-25] MEDS ORDERED: SODIUM BICARB 8.4% 50 MEQ/50 ML VIAL ONE (05:33)
[2021-10-25] MEDS ORDERED: HEParin 1000 UNIT/ML (10ML VIAL) FOR BOLUS IV ONE (06:00)
[2021-10-25] MEDS ORDERED: HEParin DRIP 25000 UNIT/500ML 500 ML IV ONE (06:17)
--- NOTE | 2021-10-25 06:30 | Diagnostic Imaging Report ---
INDICATION: Altered mental status. Compared with exam dated 10/14/2021 FINDINGS: Upper sternal wires stable. Left subclavian line projects over the lower SVC stable. Upper limits heart size stable. There is extensive new bilateral multifocal patchy airspace opacities suggestive of multifocal pneumonia. No overt vascular congestion. No pleural fluid or pneumothorax. IMPRESSION: 1. Extensive multifocal bilateral airspace opacities favored to reflect multilobar pneumonia. 2. Nodular opacities on the left owing to callus from old rib fracture deformities noted incidentally. Dictated by: Dictated on workstation # [id number]
--- NOTE | 2021-10-25 07:00 | Diagnostic Imaging Report ---
PROCEDURE: CT head without contrast. TECHNIQUE: Multiple contiguous axial images were obtained through the brain without the use of intravenous contrast. Auto Exposure Controls were utilized during the CT exam to meet ALARA standards for radiation dose reduction. INDICATION: Altered mental status Compared with study 10/14/2021. There is no intracranial hemorrhage, hydrocephalus, edema, mass, mass effect nor evidence for an elevation of the intracranial pressures. Intracranial atherosclerotic vascular calcifications are chronic. Orbits, sinuses and calvarium appeared nonacute with no air-fluid levels. There is some frothy debris within the dependent maxillary sinuses where visualized. Mastoid air cells clear. Basilar cisterns patent. No sulcal effacement and no loss of the normal haque-white matter differentiations. Some mild periventricular white matter hypodensity most notable adjacent to the left greater than right posterior lateral ventricles unchanged. Impression: No hemorrhage, edema or acute finding. No change from prior. Dictated by: Dictated on workstation # [id number]
[2021-10-25 07:07] VITALS: BP 99/54
== END 2021-10-25 07:09 | disposition short-term general hospital (02) ==
LOC: EDUNIT# 03:20 → ER 03:21
DX: E11.10 Type 2 diabetes mellitus with ketoacidosis without coma (principal); I48.92 Unspecified atrial flutter; R65.20 Severe sepsis without septic shock; J18.9 Pneumonia, unspecified organism; R00.0 Tachycardia, unspecified; Z79.4 Long term (current) use of insulin
CPT/HCPCS: 36415; 51702; 70450; 71045; 80053; 81000; 82010; 82805; 82947; 83605; 85007; 85027; 85610; 85730; 87040; 87088; 93005; 99291

== ENCOUNTER 2021-11-02 13:18 | Inpatient (IN) | payer OTHER ==
[~2021-11-02] VITALS: Ht 165 cm; Wt 55.3 kg
[2021-11-02] MEDS ORDERED: LACTULOSE SYRUP 10GM/15ML (ENULOSE) 30ML UDC PO PRN (14:00)
[2021-11-02] MEDS ORDERED: ALPRAZolam 0.25 MG (XANAX) TAB PO PRN (14:00)
[2021-11-02] MEDS ORDERED: diphenhydrAMINE 25 MG TAB (BENADRYL) PO PRN (14:00)
[2021-11-02] MEDS ORDERED: BISACODYL 10 MG SUPP (DULCOLAX) PR PRN (14:00)
[2021-11-02] MEDS ORDERED: ACETAMINOPHEN 325 MG TABLET PO PRN (14:00)
[2021-11-02] MEDS ORDERED: LOPERAMIDE 2 MG (IMODIUM) TABLET PO PRN (14:00)
[2021-11-02] MEDS ORDERED: ONDANSETRON 4 MG (ZOFRAN) ORAL DISSOLVE TAB PO PRN (14:00)
[2021-11-02] MEDS ORDERED: DOCUSATE SODIUM 100 MG (COLACE) CAP PO PRN (14:00)
[2021-11-02] MEDS ORDERED: CALCIUM CARBONATE 500 MG (TUMS) TAB.CHEW PO PRN (14:00)
[2021-11-02] MEDS ORDERED: FLEET ENEMA ADULT 1 EA BTL PR PRN (14:00)
[2021-11-02] MEDS ORDERED: guaiFENesin/CODEINE (ROBITUSSIN AC) 10ML UDC PO PRN (14:00)
[2021-11-02 14:53] VITALS: BP 110/51
[2021-11-02 14:59] LABS: BASOPHILS # (AUTO) 0.1 10^3/uL (0.0-0.1); BASOPHILS % (AUTO) 1 % (0-10); EOSINOPHILS # (AUTO) 0.4 10^3/uL (0.0-0.3); EOSINOPHILS % (AUTO) 3 % (0-10); HEMATOCRIT 31 % (35-52); HEMOGLOBIN 9.8 g/dL (11.5-16.0); LYMPHOCYTES # (AUTO) 2.8 10^3/uL (1.0-4.0); LYMPHOCYTES % (AUTO) 23 % (12-44); MEAN CORPUSCULAR HEMOGLOBIN 28 pg (25-34); MEAN CORPUSCULAR HGB CONC 31 g/dL (32-36); MEAN CORPUSCULAR VOLUME 88 fL (80-99); MEAN PLATELET VOLUME 8.9 fL (9.0-12.2); MONOCYTES # (AUTO) 0.9 10^3/uL (0.0-1.0); MONOCYTES % (AUTO) 7 % (0-12); NEUTROPHILS % (AUTO) 65 % (42-75); PLATELET COUNT 581 10^3/uL (130-400); WHITE BLOOD COUNT 12.2 10^3/uL (4.3-11.0)
[2021-11-02 15:19] LABS: ALBUMIN 2.9 GM/DL (3.2-4.5); BILIRUBIN,TOTAL 0.2 MG/DL (0.1-1.0); CALCIUM 7.9 MG/DL (8.5-10.1); CREATININE SERUM 1.77 MG/DL (0.60-1.30); TOTAL PROTEIN 6.3 GM/DL (6.4-8.2)
--- NOTE | 2021-11-02 15:48 | Physical Therapy Evaluation ---
PT Evaluation-General Medical Diagnosis Admission Date Nov 02, 2021 at 14:10 Medical Diagnosis: CVA Onset Date: Oct 25, 2021 Therapy Diagnosis Therapy Diagnosis: Impaired mobility, strength, ambulation, balance Height/Weight Height (Feet): 5 Height (Inches): 5.00 Weight (Pounds): 125 Weight (Ounces): 0.0 Precautions Precautions/Isolations: Fall Prevention, Standard Precautions Referral Physician: Tonja Rivers DO Reason for Referral: Evaluation/Treatment Medical History Pertinent Medical History: Atrial Fib, COPD, CVA, DM Additional Medical History anemia, PVD Reviewed History: Yes Social History Home: Single Level Current Living Status: Friend Entry Into Home: Stairs With Railing PT Steps Into Home: 4 Prior Prior Level of Function SCALE: Activities may be completed with or without assistive devices. 1-Wmpyctzsxz-erkqbvx completes the activity by him/herself with no assistance from a helper. 5-Set-up or Clean-up Assistance-helper sets up or cleans up; patient completes activity. [place] assists only prior to or following the activity. 4-Supervision or Touching Assistance-helper provides verbal cues and/or t ouching/steadying and/or contact guard assistance as patient completes activity. Assistance may be provided throughout the activity or intermittently. 3-Partial/Moderate Assistance-helper does LESS THAN HALF the effort. [place] lifts, holds or supports trunk or limbs, but provides less than half the effort. 2-Substantial/Maximal Assistance-helper does MORE THAN HALF the effort. [place] lifts or holds trunk or limbs and provides more than half the effort. 2-Cqqceoykc-smqzpn does ALL the effort. Patient does none of the effort to complete the activity. Or, the assistance of 2 or more helpers is required for the patient to complete the activity. If activity was not attempted, code reason: 7-Patient Refused. 9-Not Applicable-not attempted and the patient did not perform the activity before the current illness, exacerbation or injury. 10-Not Attempted due to Environmental Limitations-(lack of equipment, weather restraints, etc.). 88-Not Attempted due to Medical Conditions or Safety Concerns. Bed Mobility: 6 Transfers (B,C,W/C): 6 Gait: 6 Stairs: 6 Indoor Mobility (Ambulation): Independent Stairs: Independent Prior Device Use: four wheel walker. Cane PT Evaluation-Current Subjective Patient was brought from home today. She states that she is having some back pain as well. Patient was co-treated with OT today due to balance deficits, coordinate UE with LE activities, weakness, and risk of falling. Patient consented to treat. Pain Comment: No pain rating verbalized Pt/Family Goals To be independent at home. Objective Patient Orientation: Person, Place, Time, Situation ROM/Strength ROM Lower Extremities WFL Bilaterally Strength Lower Extremities R LE (Hip Flexion 3+/5, Knee Extension 4-/5, Knee Flexion 3+/5, DF 4-/5); L LE (Hip Flexion 3+/5, Knee Extension 4-/5, Knee Flexion 3+/5, DF 4-/5) Integumentary/Posture Integumentary Swelling noted in R LE Bowel Incontinence: No Bladder Incontinence: No Neuromuscular (Tone, Coordination, Reflexes) Peripheral Vision on L was slightly impaired. R peripheral vision was normal. tracking normal. Sensory Vision: Wears Glasses Hearing: Functional Sensation Right Lower Extremit: Intact Sensation Left Lower Extremity: Intact Transfers Roll Left & Right (QC): 6 Sit to Lying (QC): 6 Lying to Sitting/Side of Bed(Q: 6 Sit to Stand (QC): 4 (CGA) Chair/Rkh-ny-Badqk Xfer(QC): 4 (CGA) Toilet Transfer (QC): 4 (CGA) Car Transfer (QC): 4 (CGA) Gait Does the Patient Walk?: Yes Mode of Locomotion: Walk Anticipated Mode of Locomotion: Walk Walk 10 feet (QC): 4 (CGA) Walk 50 ft with 2 Turns(QC): 4 (CGA) Walk 150 ft (QC): 88 Walking 10ft/uneven surface-QC: 4 (CGA) Distance: 50', 50', 20', 20', 75' Gait Assistive Device: FWW Wheelchair Training Does the Pt Use a Wheelchair?: No Wheel 50 ft with 2 turns (QC): 9 Wheel 150 ft (QC): 9 Stairs 1 Step (curb) (QC): 4 (CGA) 4 Steps (QC): 4 (CGA) 12 Steps (QC): 88 Walking Assistive Device: Walker Balance Sitting Static: Normal Sitting Dynamic: Good Standing Static: Good Standing Dynamic: Good Picking up an Object (QC): 4 (CGA with scientist engineer) Treatment Ambulation, Transfers, Standing tolerance and balance with UE activity. PT worked on LE positioning and coordination, OT worked on UE positioning and coordination during standing balance activities and transfers. Assessment/Needs Patient was admitted today with weakness following acute onset of diabetic ketoacidosis. Patient demonstrates significant weakness with MMT, and weakness and unsteadiness with transfers, ambulation, and stairs, and requires extra time along with a four-wheeled walker with these activities. Patient is independent with bed mobility, but is slow with mobilizing herself. Patient reported feeling dizzy several times throughout treatment. This was likely due to her low blood sugar, nursing was notified and administered several snacks to the patient. She stated she felt better after the snacks. Patient was left in bed with call light, tray, and all needs met. Rehab Potential: Fair PT Short Term Goals Short Term Goals Time Frame: November 09, 2021 Roll Left & Right: 6 Sit to lyin Lying to sitting on side of be: 6 Sit to stand: 4 (SBA) Chair/zrl-ny-hikns transfer: 4 (SBA) Walk 10 feet: 4 (SBA) Walk 50 feet with two turns: 4 (SBA) Walk 150 feet: 4 (SBA) PT Intermediate Goals Intermediate Goals PT Intermediate Goals Time Frame: November 23, 2021 Roll Left & Right (QC): 6 Sit to Lying (QC): 6 Lying-Sitting on Side/Bed(QC): 6 Sit to Stand (QC): 6 Chair/Qha-og-Blkjh Xfer(QC): 6 Toilet Transfer (QC): 6 Car Transfer (QC): 6 Does the Patient Walk: Yes Walk 10 feet (QC): 6 Walk 50ft with 2 Turns (QC): 6 Walk 150 ft (QC): 6 Walking 10ft on Uneven Surface: 6 1 Step (curb) (QC): 6 4 Steps (QC): 6 12 Steps (QC): 88 Picking up an Object (QC): 6 Does the Pt use WC or Scooter?: No Wheel 50 feet with 2 turns (QC: 9 Type: N/A Wheel 150 feet: 9 Type: N/A PT Plan Problem List Problem List: Activity Tolerance, Functional Strength, Safety, Balance, Gait, Transfer, ROM Treatment/Plan Treatment Plan: Continue Plan of Care Treatment Plan: Education, Functional Activity Pauly, Functional Strength, Group Therapy, Gait, Safety, Therapeutic Exercise, Transfers Treatment Duration: November 23, 2021 Frequency: At least 5 of 7 days/Wk (IRF) Estimated Hrs Per Day: 1.5 hours per day Patient and/or Family Agrees t: Yes Safety Risks/Education Patient Education: Gait Training, Transfer Techniques, Steps, Reviewed Precautions, Correct Positioning, Disease Process, Safety Issues Teaching Recipient: Patient Teaching Methods: Demonstration, Discussion Response to Teaching: Reinforcement Needed Discharge Recommendations Plan To work on LE strength and balance to be functionally independent at home Therapy Discharge Recommendati: Post Acute PT Time/GCodes Time In: 1410 Time Out: 1550 Total Billed Treatment Time: 90 Total Billed Treatment 1 visit EVM 10min EX 15' FA 65' PT eval from [id number], OT eval from [id number], co-treat from [id number] MARY ANDREWS PT Nov 02, 2021 15:48
--- NOTE | 2021-11-02 15:54 | Occupational Therapy Eval ---
OT Evaluation-General/PLF Medical Diagnosis Admission Date Nov 02, 2021 at 14:10 Medical Diagnosis: CVA Onset Date: Oct 25, 2021 Therapy Diagnosis Therapy Diagnosis: reduced endurance, strength, adl status Height/Weight Height (Feet): 5 Height (Inches): 5.00 Weight (Pounds): 125 Weight (Ounces): 0.0 Precautions Precautions/Isolations: Fall Prevention, Standard Precautions Referral Physician: Silvestre Referral Reason: Evaluation/Treatment Medical History Pertinent Medical History: Atrial Fib, COPD, CVA, DM Additional Medical History ROSA, DKA Current History Pt initially admitted to [facility] 10/25 with increased confusion and s lurred speech. Found to have diabetic ketoacidosis and pneumonia. Pt was discharged home. She reports getting weaker as days went on. Per patient, she lives with roommate in a single story home. She was indep with adls but requires assistance/supervision with tub transfers. Pt owns a 4ww and a cane that she was using prior to admission. She reports that she does the laundry and very simple meal prep. Her roommate Nneka completes all cleaning and transportation. Pt states that she lives a sedentary lifestyle and will often taken several long naps throughout the day. Pt states that she has had several falls recently "too many to count." Reviewed History: Yes Social History Home: Single Level Current Living Status: Friend Entry Into Home: Stairs With Railing Steps Into Home: 4 ADL-Prior Level of Function SCALE: Activities may be completed with or without assistive devices. 2-Wtvmkivzpm-bqoynvn completes the activity by him/herself with no assistance from a helper. 5-Set-up or Clean-up Assistance-helper sets up or cleans up; patient completes activity. [place] assists only prior to or following the activity. 4-Supervision or Touching Assistance-helper provides verbal cues and/or touching/steadying and/or contact guard assistance as patient completes activity. Assistance may be provided throughout the activity or intermittently. 3-Partial/Moderate Assistance-helper does LESS THAN HALF the effort. [place] lifts, holds or supports trunk or limbs, but provides less than half the effort. 2-Substantial/Maximal Assistance-helper does MORE THAN HALF the effort. [place] lifts or holds trunk or limbs and provides more than half the effort. 9-Evqldwasg-asrydl does ALL the effort. Patient does none of the effort to complete the activity. Or, the assistance of 2 or more helpers is required for the patient to complete the activity. If activity was not attempted, code reason: 7-Patient Refused. 9-Not Applicable-not attempted and the patient did not perform the activity before the current illness, exacerbation or injury. 10-Not Attempted due to Environmental Limitations-(lack of equipment, weather restraints, etc.). 88-Not Attempted due to Medical Conditions or Safety Concerns. Self Care: Independent Functional Cognition: Independent DME/Equipment: Bath Chair, Grab Bars, Tub/Shower Drive Self: No OT Current Status Subjective Pt reports back pain, no numerical value given. Agreeable to eval. Co-treat with PT for part of session secondary to fatigue, poor endurance, high fall risk, and need of 2 skilled clinicians to progress indep and safety with adls and mobility. Appearance Pt left sitting in recliner, all needs within reach. 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 With extra effort, she was able to bend at waist to reach feet in order to doff socks/shoes. SOA notable post step. O2 100%, HR 101. Following cue/education on energy conservation, pt able to don bilateral socks/shoes with use of cross over method and SBA. Less SOA exhibited with modified technique. Sit<>stand: SBA-CGA. Mild unsteadiness in standing, requires CGA for safety with all functional tasks. Pt ambulated around unit, cues for walker management and ensuring brakes are locked prior to transfers. Pt stood to complete nuts/bolts board with CGA. Longest standing bout- 4:39. Pt's LE's begin to tremble after ~4 minute each time. Cues/education for body awareness and when to take breaks. While completing stairs (see Pt note regarding assist level), pt c/o dizziness. Blood sugar checked, 49. Crackers/peanut butter provided. Pt reports that she often skips meals. Education on diabetes management. Further education will be needed. Education OT Patient Education: Correct positioning, Disease process, Energy conservation, Modified ADL techniques, Progress toward Goal/Update tx plan, Purpose of tx/functional activities, Rehab process, Safety issues, Transfer techniques Teaching Recipient: Patient Teaching Methods: Demonstration, Discussion Response to Teaching: Verbalize Understanding, Return Demonstration OT Short Term Goals Short Term Goals Time Frame: November 09, 2021 Eatin Oral hygiene: 5 Toileting hygiene: 4 Shower/bathe self: 4 Upper body dressin Lower body dressin Putting on/taking off footwear: 5 OT Aquatic Physiotherapist Goals Aquatic Physiotherapist Goals Time Frame: November 14, 2021 Eating (QC): 6 Oral Hygiene (QC): 6 Toileting Hygiene (QC): 6 Shower/Bathe Self (QC): 6 Upper Body Dressing (QC): 6 Lower Body Dressing (QC): 6 On/Off Footwear (QC): 6 1=Demonstrate adherence to instructed precautions during ADL tasks. 2=Patient will verbalize/demonstrate understanding of assistive devices/modifications for ADL. 3=Patient will improve strength/tolerance for activity to enable patient to perform ADL's. OT Education/Plan Problem List/Assessment Assessment: Decreased Activ Tolerance, Decreased Safety Aware, Decreased UE Strength, Impaired Coordination, Impaired Funct Balance, Impaired I ADL's, Impaired Self-Care Skills, Visual-Perceptual Deficit Discharge Recommendations Plan/Recommendations: Continue POC Therapy Discharge Recommendati: Post Acute OT (home health ) Treatment Plan/Plan of Care Treatment,Training & Education: Yes Patient would benefit from OT for education, treatment and training to promote independence in ADL's, mobility, safety and/or upper extremity function for ADL's. Plan of Care: ADL Retraining, Functional Mobility, Group Exercise/Act as Ind, UE Funct Exercise/Act Treatment Duration: November 14, 2021 Frequency: At least 5 of 7 days/Wk (IRF) Estimated Hrs Per Day: 1.5 hours per day (60-90 min/day ) Agreement: Yes Rehab Potential: Fair Time/GCodes Start Time: 14:10 Stop Time: 15:50 Total Time Billed (hr/min): 90 Billed Treatment Time 1 visit EVM (10 min) ADL (20 min) FA x4 (60 min) OT eval: [id number] PT eval: [id number] Co-treat: [id number] Marnie Williamson OT Nov 02, 2021 15:54
[2021-11-02] MEDS: inSUlin ASPART (NovoLOG) 1 UNIT/0.01 ML (CHARGE PER UNIT) SC SCH ×2 (16:09→20:37)
--- NOTE | 2021-11-02 16:19 | PM&R Post Admission Assessment ---
PM&R HP Date of Visit: Nov 02, 2021 Time of Visit: 17:00 History of Present Illness Chief complaint: Debility from critical illness with CVA History of present illness: This is a 61-year-old white female known to me from prior admission for atrial fibrillation with RVR 1 month ago who presents from home after discharge this past Sunday from [facility] after a lengthy hospital course following a transfer from [facility] due to acute kidney failure creatinine 3.4 and hyperosmolar hyperglycemic nonketotic state with blood sugar of 1000. 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 She continues to smoke of which we will support her by about bringing nicotine patch. Blood sugars are much better she reports. She is high risk for falls. She is unfamiliar with the medication she takes so we will try to talk with daughter to finalize her medication list but I did initiate her oral anticoagulation and Plavix and Cardizem in the meantime and will consult her regular auto technician Dr. Jeffries. Her bowels have not moved for several days. We will initiate aggressive physical therapy and Occupational Therapy in order to regain enough function to go home. Past Viteghh-Lnqvoz-Eefwgz Hx Past Med/Social Hx: Reviewed Nursing Past Med/Soc Hx, Reviewed and Corrections made Patient Social History Marrital Status: single Employed/Student: retired Alcohol Use: Denies Use Smoking Status: Current Everyday Smoker Type Used: Cigarettes 2nd Hand Smoke Exposure: No Recent Hopitalizations: No Immunizations Up To Date Tetanus Booster (TDap): Unknown Pediatric: No Date of Pneumonia Vaccine: Apr 02, 2013 Date of Influenza Vaccine: May 05, 2020 Seasonal Allergies Seasonal Allergies: No Past Medical History Surgeries: Abdominal, Cardiac, CABG, Gallbladder, 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, Oophorectomy, Orthopedic, Thyroidectomy, Vascular Surgery Respiratory: COPD, Pneumonia Currently Using CPAP: No Currently Using BIPAP: No Cardiac: Atrial Fibrillation, Coronary Artery Disease, High Cholesterol, Hypertension, Peripheral Vascular Neurological: Headaches /Migraines, Neuropathy, Stroke Reproductive: No Sexually Transmitted Disease: No HIV/AIDS: No Female Reproductive Disorders: Denies 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, Menopausal Gastrointestinal: Gastroesophageal Reflux, Chronic Constipation, Chronic Diarrhea, Hiatal Hernia Musculoskeletal: Degenerate Disk Disease, Chronic Back Pain Endocrine: Diabetes, Insulin dep, Hypothyroidsim Loss of Vision: Denies Hearing Impairment: Denies Psychosocial: Anxiety, Depression History of Blood Disorders: No Adverse Reaction to Blood [place]: No Family History Cancer G8 BROTHER, Onset:Unknown G8 BROTHER, Onset:Unknown Cancer of colon G8 BROTHER, Onset:Unknown Chest pain 19 MOTHER, Onset:Unknown Colon cancer Congestive heart failure 19 FATHER, Onset:60 years & older Family history: Alzheimer's disease 19 MOTHER, Onset:50's - 60 Family history: Arthritis 19 MOTHER, Onset:Unknown Family history: Asthma 19 FATHER, Onset:Unknown Family history: Cardiovascular disease 19 MOTHER, Onset:50's - 60 Family history: Coronary thrombosis 19 MOTHER, Onset:Unknown Family history: Diabetes mellitus 19 MOTHER, Onset:Unknown Family history: Hypertension 19 MOTHER, Onset:50's - 60 Family history: Thyroid disorder 19 MOTHER, Onset:50's - 60 Heart disease 19 MOTHER, Onset:50's - 60 Human immunodeficiency virus (HIV) seropositivity G8 BROTHER, Onset:40's - 50 Myocardial infarction 19 MOTHER, Onset:50's - 60 No Family History of: Abdominal aortic aneurysm Fidencio's disease Alcoholism Aphasia Cataract Congenital heart disease Cystic fibrosis Dementia Dysphagia Family history: Allergy Family history: Breast disease Family history: Gastrointestinal disease Family history: Glaucoma Family history: Osteoporosis Headache Hearing loss Hereditary disease History of - anemia History of - disorder History of - respiratory disease History of drug abuse Hypercholesterolemia Infertile Kidney disease Malignant neoplasm of lung Parkinson's disease Prostate cancer Psychotic disorder Seizure disorder Stroke Tuberculosis Visual impairment PSH: -RIGHT ILIAC ARTERY STENT -4 VESSEL CABG 12/2015 -RIGHT CAROTID ENDARTERECTOMY 12/2015 -TONSILLECTOMY -HYSTERECTOMY/BSO -LAPAROSCOPIC DUKE FUNDOPLICATION -CERVICAL SPINE FUSION Prior Level of Function Bed Mobility: 6 Transfers: 6 Gait: 6 Stairs: 6 Indoor Mobility (Ambulation): Independent Stairs: Independent four wheel walker. Cane Self Care: Independent Functional Cognition: Independent Drive Self: No Current Level of Fuctioning Roll Left to Right: 6 Sit to Lyin Lying to Sitting/Side of Bed: 6 Sit to Stand: 4 (CGA) Chair/[id number] Xfer: 4 (CGA) Car Transfer: 4 (SBA) Does the Patient Walk: Yes Mode of Locomotion: Walk Anticipated Mode of Locomotion: Walk Walk 10 feet: 4 (CGA) Walk 50 ft with 2 Turns: 4 (CGA) Walk 150 ft: 88 Walking 10ft on uneven surface: 4 (CGA) Gait Assistive Device: FWW Does the Pt Use a Wheelchair: No Wheel 50 ft with 2 turns: 9 Wheel 150 ft: 9 1 Step (curb): 4 (CGA) 4 Steps: 4 (CGA) Walking Assistive Device: Walker 12 Steps: 88 Picking up an Object: 4 (CGA) Eatin Oral Hygiene: 4 Shower/Bathe Self: 7 Upper Body Dressin Lower Body Dressin On/Off Footwear: 4 Toileting Hygiene: 4 PM&R Allergy/Meds/Data Review Allergies Coded Allergies: ciprofloxacin (Verified Allergy, Mild, redness and itching , 12/04/18) redness and itching at iv site Home Medications Scheduled Apixaban (Eliquis), 5 MG PO BID, (Reported) Atorvastatin Calcium (Atorvastatin Calcium), 40 MG PO HS, (Reported) Calcitriol (Calcitriol), 0.25 MCG PO DAILY, (Reported) Clopidogrel Bisulfate (Clopidogrel), 75 MG PO DAILY, (Reported) Diltiazem HCl (Diltiazem 24Hr ER), 240 MG PO DAILY, (Reported) Fluticasone/Umeclidin/Vilanter (Trelegy Ellipta 100-62.5-25), 1 EACH IH DAILY, (Reported) Folic Acid (Folic Acid), 1 MG PO DAILY, (Reported) Insulin Aspart (Insulin Aspart), UNITS SC AC, (Reported) Insulin Determir (Levemir), 14 UNITS SQ HS, (Reported) Insulin Determir (Levemir), 16 UNITS SQ DAILY, (Reported) Levothyroxine Sodium (Levothyroxine Sodium), 25 MCG PO DAILY, (Reported) Levothyroxine Sodium (Levothyroxine Sodium), 200 MCG PO DAILY, (Reported) Lisinopril (Lisinopril), 10 MG PO HS, (Reported) Montelukast Sodium (Montelukast Sodium), 10 MG PO HS, (Reported) Pantoprazole Sodium (Pantoprazole Sodium), 40 MG PO BID, (Reported) Paroxetine HCl (Paroxetine HCl), 40 MG PO DAILY, (Reported) Scheduled PRN Albuterol Sulfate (Proair Hfa), 2 PUFF IH Q4H PRN for SHORTNESS OF BREATH, (Reported) Gabapentin (Gabapentin), 100 MG PO HS PRN for PAIN-BREAKTHROUGH, (Reported) Meclizine HCl (Meclizine HCl), 12.5 MG PO Q6H PRN for DIZZINESS, (Reported) Discontinued Medications Albuterol Sulfate (Proair Respiclick), 90 MCG INH Q4H PRN for WHEEZING, (Reported) Discontinued Reason: Duplicate Order Amlodipine Besylate (Amlodipine Besylate), 5 MG PO DAILY, (Reported) Discontinued Reason: No Longer Taking Apixaban (Eliquis), 2.5 MG PO BID Discontinued Reason: No Longer Taking Aspirin (Aspirin), 81 MG PO DAILY, (Reported) Discontinued Reason: No Longer Taking Buspirone HCl (Buspirone HCl), 5 MG PO BID, (Reported) Discontinued Reason: No Longer Taking Diltiazem HCl (Diltiazem 24Hr ER), 240 MG PO DAILY Discontinued Reason: Duplicate Order Docusate Sodium (Colace), 100 MG PO DAILY PRN for CONSTIPATION-1ST LINE, (Reported) Discontinued Reason: No Longer Taking Hydrocodone/Acetaminophen (Hydrocodone-Acetamin 5-325 mg), 5-325 MG PO Q6H PRN for PAIN-BREAKTHROUGH, (Reported) Discontinued Reason: No Longer Taking Hyoscyamine Sulfate (Hyoscyamine Sulfate), 0.125 MG SL Q4H PRN for SPASMS Discontinued Reason: No Longer Taking Levothyroxine Sodium (Euthyrox), 175 MCG PO DAILY, (Reported) Discontinued Reason: No Longer Taking Meclizine HCl (Meclizine HCl), 12.5 MG PO Q6H PRN for DIZZINESS Discontinued Reason: Duplicate Order Promethazine HCl (Promethazine Tablet), 25 MG PO Q8H PRN for NAUSEA/VOMITING, (Reported) Discontinued Reason: No Longer Taking Current Medications Current Medications Reviewed Laboratory Data Laboratory Tests 11/02/21 14:52: White Blood Count 12.2H, Red Blood Count 3.56L, Hemoglobin 9.8L, Hematocrit 31L, Mean Corpuscular Volume 88, Mean Corpuscular Hemoglobin 28, Mean Corpuscular Hemoglobin Concent 31L, Red Cell Distribution Width 15.9H, Platelet Count 581H, Mean Platelet Volume 8.9L, Immature Granulocyte % (Auto) 1, Neutrophils (%) (Auto) 65, Lymphocytes (%) (Auto) 23, Monocytes (%) (Auto) 7, Eosinophils (%) (Auto) 3, Basophils (%) (Auto) 1, Neutrophils # (Auto) 8.0H, Lymphocytes # (Auto) 2.8, Monocytes # (Auto) 0.9, Eosinophils # (Auto) 0.4H, Basophils # (Auto) 0.1, Immature Granulocyte # (Auto) 0.2H, Sodium Level 141, Potassium Level 4.0, Chloride Level 107, Carbon Dioxide Level 23, Anion Gap 11, Blood Urea Nitrogen 29H, Creatinine 1.77H, Estimat Glomerular Filtration Rate 33, BUN/Creatinine Ratio 16, Glucose Level 52*L, Calcium Level 7.9L, Corrected Calcium 8.8, Total Bilirubin 0.2, Aspartate Amino Transf (AST/SGOT) 11, Alanine Aminotransferase (ALT/SGPT) 18, Alkaline Phosphatase 149H, Total Protein 6.3L, Albumin 2.9L 11/02/21 15:02: Glucometer 49*L 11/02/21 15:58: Glucometer 80 Review of Systems Constitutional: see HPI, malaise, weakness EENTM: no symptoms reported Respiratory: dyspnea on exertion Cardiovascular: no symptoms reported Gastrointestinal: constipation Genitourinary: no symptoms reported Musculoskeletal: back pain, joint pain Skin: no symptoms reported Psychiatric/Neurological: Depressed All Other Systems Reviewed Negative Unless Noted: Yes Physical Exam Physical Exam Vital Signs Capillary Refill : Height, Weight, BMI Height: 5'5.00" Weight: 125lbs. 0.0oz. [id number]; 22.00 BMI Method:Stated General Appearance: No Apparent Distress, WD/WN, Chronically ill, Thin Eyes: Bilateral Eye Normal Inspection, Bilateral Eye PERRL HEENT: PERRL/EOMI, Normal ENT Inspection, Pharynx Normal Neck: Full Range of Motion, Normal Inspection, Non Tender, Supple, Carotid Bruit Respiratory: Chest Non Tender, Lungs Clear, Normal Breath Sounds, No Accessory Muscle Use, No Respiratory Distress Cardiovascular: Regular Rate, Rhythm, No Edema, No Gallop, No JVD, No Murmur, Normal Peripheral Pulses Gastrointestinal: Normal Bowel Sounds, No Organomegaly, No Pulsatile Mass, Non Tender, Soft Back: Normal Inspection, No CVA Tenderness, No Vertebral Tenderness Extremity: Normal Capillary Refill, Normal Inspection, Normal Range of Motion, Non Tender, No Calf Tenderness, No Pedal Edema Neurologic/Psychiatric: Alert, Oriented x3, craft recruiter II-XII Norm as Tested, Abnormal Gait, Depressed Affect, Motor Weakness (Generalized) Skin: Normal Color, Warm/Dry Lymphatic: No Adenopathy PM&R Medical Assessment & Plan REHAB/MEDICAL ASSESSMENT AND PLAN: REHAB IMPAIRMENT GROUP: Critical illness myopathy with CVA ETIOLOGIC DIAGNOSIS: Critical illness myopathy with CVA The comorbidities that impact the patients function and/or functional outcome by: Complex comorbidities, continued smoking, atrial fibrillation, severe labile diabetes REHAB PLAN: The patient is being admitted to our comprehensive inpatient rehabilitation facility and can tolerate the intensity of service consisting of at least: 180 minutes of therapy a day, 5 out of 7 days a week Rehab treatment will consist of: PT and OT will focus on regaining function with the use of assistive devices in order to gain stamina and increased independence in order to return back to independent living The patient/family has a good understanding of our discharge process and will benefit from an interdisciplinary inpatient rehabilitation program. The patient has potential to make improvement and is in need of at least two of the following multidisciplinary therapies including but not limited to physical, occupational, speech, and prosthetics and orthotics. Additionally the patient will need services from respiratory, nutritional services, wound care, psycholo gy, etc. (Customize this to each patient). Given the patients complex condition and risk of further medical complications, rehabilitation services cannot be safely or effectively provided at a lower level of care such as a [place] [facility] facility. BARRIERS TO DISCHARGE: Complicated comorbidities ESTIMATED LOS: 7 days DISPOSITION: Home RELEVANT CHANGES SINCE PREADMISSION SCREENING: I have compared the patients medical and functional status at the time of the preadmission screening and there are: no changes PROGNOSIS: Fair REHABILITATION GOALS: 1. PT and OT will focus on regaining function with the use of assistive devices in order to gain stamina and increased independence in order to return back to independent living All the above goals were reviewed with the patient and he/she is in agreement. By signing this document, I acknowledge that I have personally performed a full physical examination on this patient within 24 hours of admission to this inpatient rehabilitation facility and have determined the patient to be able to tolerate the above course of treatment at an intensive level for a reasonable period of time. I will be completing a detailed individualized Plan of Care for this patient by day #4 of the patients stay based upon the Preadmission Screen, the Post-Admission Evaluation, and the therapy evaluations. Admission Dx/Comorbidities: (1) CVA (cerebral vascular accident) ICD Codes: I63.9 - Cerebral infarction, unspecified (2) Diabetes mellitus Status: Chronic ICD Codes: E11.9 - Type 2 diabetes mellitus without complications (3) CAD (coronary artery disease) Status: Chronic ICD Codes: I25.10 - CAD (coronary artery disease) (4) Hyperlipidemia Status: Chronic ICD Codes: E78.5 - Hyperlipidemia (5) PAD (peripheral artery disease) Status: Chronic ICD Codes: I73.9 - PAD (peripheral artery disease) (6) Diabetes mellitus, insulin dependent (IDDM), uncontrolled Status: Acute ICD Codes: E11.65 - Type 2 diabetes mellitus with hyperglycemia; 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 (7) ROSA (acute kidney injury) Status: Acute (8) COPD (chronic obstructive pulmonary disease) Status: Chronic ICD Codes: J44.9 - Chronic obstructive pulmonary disease, unspecified (9) CKD (chronic kidney disease) stage 3, GFR 30-59 ml/min Status: Chronic ICD Codes: N18.30 - Chronic kidney disease, stage 3 unspecified (10) Coronary artery disease without angina pectoris ICD Codes: I25.10 - Atherosclerotic heart disease of [place] coronary artery without angina pectoris (11) Primary hypertension ICD Codes: I10 - Essential (primary) hypertension (12) Mixed hyperlipidemia ICD Codes: E78.2 - Mixed hyperlipidemia Assessment/Plan Assessment and Plan Assess & Plan/Chief Complaint Assessment: 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 History of C. difficile Plan: Inpatient rehab protocol Supportive care Blood sugar monitoring Monitor kidney function TONG MAGALLON DO Nov 02, 2021 16:19
[2021-11-02] MEDS ORDERED: SENNA W/DOCUSATE (SENOKOT S) TABLET PO NR (16:30)
[2021-11-02] MEDS ORDERED: LACTULOSE SYRUP 10GM/15ML (ENULOSE) 30ML UDC PO NR (16:30)
[2021-11-02] MEDS ORDERED: LEVO200T6 PO (16:47)
[2021-11-02] MEDS ORDERED: INSU100V5 SQ (16:47)
[2021-11-02] MEDS ORDERED: FOLI1TAB33 PO (16:47)
[2021-11-02] MEDS ORDERED: MECL-215 PO (16:47)
[2021-11-02] MEDS ORDERED: APIX5TAB PO (16:47)
[2021-11-02] MEDS ORDERED: DILT240C91 PO (16:47)
[2021-11-02] MEDS ORDERED: LEVO25TA5 PO (16:47)
[2021-11-02] MEDS ORDERED: RT-ALBUINH IH (16:47)
[2021-11-02] MEDS: HYDROcodone/APAP 5 MG/325 MG (LORTAB) TAB PO PRN ×2 (18:47→22:25)
[2021-11-02] MEDS: RT--FLUTICASONE/SALMETEROL 113-14 (AIRDUO RespiCLICK) IH SCH (19:09)
[2021-11-02 20:00] VITALS: BP 94/50
[2021-11-02] MEDS: APIXABAN 5 MG (ELIQUIS) TABLET PO SCH (20:36)
[2021-11-02] MEDS: DOCUSATE SODIUM 100 MG (COLACE) CAP PO SCH (20:36)
[2021-11-02] MEDS: polyethylene glycoL POWDER 17 GM (MIRALAX) PACK PO SCH (20:38)
[2021-11-02] MEDS: SENNA W/DOCUSATE (SENOKOT S) TABLET PO SCH (20:38)
[2021-11-02] MEDS ORDERED: ADVAIR HFA 115/21 MCG INHALER 8 GM IH SCH (21:00)
[2021-11-02] MEDS: MELATONIN 3 MG TABLET PO PRN (21:38)
[2021-11-03 05:28] LABS: BASOPHILS % (AUTO) 0 % (0-10); EOSINOPHILS # (AUTO) 0.3 10^3/uL (0.0-0.3); EOSINOPHILS % (AUTO) 3 % (0-10); HEMATOCRIT 27 % (35-52); HEMOGLOBIN 8.6 g/dL (11.5-16.0); LYMPHOCYTES # (AUTO) 2.1 10^3/uL (1.0-4.0); LYMPHOCYTES % (AUTO) 23 % (12-44); MEAN CORPUSCULAR HEMOGLOBIN 28 pg (25-34); MEAN CORPUSCULAR HGB CONC 32 g/dL (32-36); MEAN CORPUSCULAR VOLUME 88 fL (80-99); MEAN PLATELET VOLUME 8.9 fL (9.0-12.2); MONOCYTES # (AUTO) 0.8 10^3/uL (0.0-1.0); MONOCYTES % (AUTO) 9 % (0-12); NEUTROPHILS # (AUTO) 5.9 10^3/uL (1.8-7.8); NEUTROPHILS % (AUTO) 64 % (42-75); PLATELET COUNT 526 10^3/uL (130-400); WHITE BLOOD COUNT 9.2 10^3/uL (4.3-11.0)
[2021-11-03 05:55] LABS: ALBUMIN 2.3 GM/DL (3.2-4.5); BILIRUBIN,TOTAL 0.1 MG/DL (0.1-1.0); CALCIUM 7.4 MG/DL (8.5-10.1); CREATININE SERUM 1.75 MG/DL (0.60-1.30); POTASSIUM 4.8 MMOL/L (3.6-5.0); TOTAL PROTEIN 4.9 GM/DL (6.4-8.2)
[2021-11-03] MEDS: inSUlin ASPART (NovoLOG) 1 UNIT/0.01 ML (CHARGE PER UNIT) SC SCH ×4 (06:09→21:06)
--- NOTE | 2021-11-03 06:10 | Individualized Plan of Care ---
Individualized Plan of Care Rehab Nursing IPOC Order Admission Date Nov 02, 2021 at 14:10 Current Orders Orders Admission Order(Inpt,Obs,Sdc) (11/02/21 13:56) Vital Signs: Per Unit Policy ( 08,16,00 (11/02/21 13:56) Frankie Salas , (11/02/21 13:56) Sequential Compression Device (11/02/21 13:56) Electric Meter Installer Helper-Inpt Rehab Con (11/02/21 13:56) Rehab Nursing Orders-Ipoc (11/02/21 13:56) Physical Therapy Rehab Orders (11/02/21 13:56) Occupational Therapy Rehab Ord (11/02/21 13:56) Speech Therapy Rehab Orders (11/02/21 13:56) Cbc With Automated Diff (11/03/21 06:00) Comprehensive Metabolic Panel (11/03/21 06:00) Precautions (Aru) (11/02/21 13:56) Weekly Weight WEEK (11/02/21 13:56) Rehab-Intensity Of Therapy (11/02/21 13:56) Initiate Admission Nursing Pro .admission (11/02/21 13:56) Alprazolam Tablet (Xanax Tablet) (11/02/21 14:00) Calcium Carbonate Chew Tablet (Antacid C (11/02/21 14:00) Diphenhydramine Tablet (Benadryl Tablet) (11/02/21 14:00) Docusate Sodium Capsule (Colace Capsule) (11/02/21 21:00) Docusate Sodium Capsule (Colace Capsule) (11/02/21 14:00) Bisacodyl Suppository (Dulcolax Supposit (11/02/21 14:00) Lactulose Oral Solution (Enulose Oral So (11/02/21 14:00) Na Phos/Na Biphos Enema (Fleet Enema [place] (11/02/21 14:00) Guaifenesin/Codeine Syrup (Robitussin Ac (11/02/21 14:00) Loperamide Tablet (Imodium Tablet) (11/02/21 14:00) Melatonin Tablet (Melatonin Tablet) (11/02/21 14:00) Polyethylene Glycol Powder Pkt (Miralax (11/02/21 21:00) Ondansetron Oral Dissolve Tab (Zofran (11/02/21 14:00) Senna S Tablet (Senokot S Tablet) (11/02/21 21:00) Acetaminophen Tablet/Caplet (Tylenol T (11/02/21 14:00) Initiate Admission Nursing Pro .admission (11/02/21 13:56) Cbc With Automated Diff (11/02/21 13:56) Comprehensive Metabolic Panel (11/02/21 13:56) Accucheck Achs ACHS (11/02/21 13:56) Insulin Aspart (Novolog) (Novolog (Charg (11/02/21 16:00) Admission Arrival Bed Request (11/02/21 14:12) Cho 75g/M 0snack (21-2400 Brian) (11/02/21 Dinner) Hydrocodone/Apap 5/325 Tablet (Lortab 5 (11/02/21 16:15) Consult Cardiology (11/02/21 16:11) Lactulose Oral Solution (Enulose Oral So (11/02/21 16:30) Senna S Tablet (Senokot S Tablet) (11/02/21 16:30) Apixaban Tablet (Eliquis Tablet) (11/02/21 21:00) Nicotine Patch (Nicoderm Patch) (11/03/21 09:00) Clopidogrel Tablet (Plavix Tablet) (11/03/21 09:00) Folic Acid Tablet (Folic Acid Tablet) (11/03/21 09:00) Fluticasone/Salmeterol 115/21 (Advair Hf (11/02/21 21:00) Incentive Spirometry (Nursing) Q2H (11/02/21 16:23) Diltiazem Cd 24 Hr Capsule (Cardizem Cd (11/03/21 09:00) Levothyroxine Tablet (Synthroid Tablet) (11/03/21 06:30) Levothyroxine Tablet (Synthroid Tablet) (11/03/21 06:30) Patch Removal (Patch Removal) (11/03/21 08:59) Isolation Central Supply Req (11/02/21 16:41) Fluticasone/Salmeterol 113-14 (Airduo Re (11/02/21 21:00) Patient Visit (11/02/21 ) Pt Eval Moderate Complexity (11/02/21 ) Exercise Therap, Ea 15 Min (11/02/21 ) Functional Activities, Ea 15 (11/02/21 ) Patient Visit (11/03/21 ) Speech Sound Lang Comp (11/03/21 ) Treat. Speech/Lang/Voice (11/03/21 ) Patient Visit (11/03/21 ) Exercise Therap, Ea 15 Min (11/03/21 ) Gait Training, Ea 15 Min (11/03/21 ) Insulin Aspart (Novolog) (Novolog (Charg (11/03/21 21:00) Albuterol Pre-Mix Nebs (Rt) (Proventil (11/03/21 20:30) Atorvastatin Tablet (Lipitor Tablet) (11/03/21 21:00) Calcitriol Capsule (Rocaltrol Capsule) (11/04/21 09:00) Folic Acid Tablet (Folic Acid Tablet) (11/04/21 09:00) Gabapentin Capsule/Tablet (Neurontin Cap (11/03/21 20:30) Insulin Determir 10 Ml Vial (Levemir 10 (11/03/21 21:00) Insulin Determir 10 Ml Vial (Levemir 10 (11/04/21 09:00) Levothyroxine Tablet (Synthroid Tablet) (11/04/21 06:30) Lisinopril Tablet (Zestril Tablet) (11/03/21 21:00) Montelukast Tablet (Singulair Tablet) (11/03/21 21:00) Pantoprazole Tablet (Protonix Tablet) (11/03/21 21:00) Umeclidinium [place] Inhaler (Incruse El (11/04/21 08:00) Levothyroxine Tablet (Synthroid Tablet) (11/04/21 06:30) Meclizine Tablet (Antivert Tablet) (11/03/21 21:45) Paroxetine Tablet (Paxil Tablet) (11/04/21 09:00) Insulin (Regular) Human (Novolin R (Per (11/03/21 20:45) Lisinopril Tablet (Zestril Tablet) (11/03/21 20:47) Atorvastatin Tablet (Lipitor Tablet) (11/03/21 20:56) Lisinopril Tablet (Zestril Tablet) (11/04/21 21:00) Pantoprazole Tablet (Protonix Tablet) (11/04/21 07:00) Pantoprazole Tablet (Protonix Tablet) (11/03/21 20:47) Montelukast Tablet (Singulair Tablet) (11/03/21 21:24) Insulin Determir (Per Unit) (Levemir (Pe (11/03/21 22:14) Fluticasone/Salmeterol 232-14 (Airduo Re (11/04/21 08:00) Rehab Nursing Orders: Ongoing Assess. of Cognitive Status, Ongoing Assess. of Function Status, Bladder Management, Bladder Scan, Bladder Training, Bowel Management, Bowel Training, Disease Management & Educaiton, DVT Prophylaxis, Fall Prevention, Fluid/Electrolyte/Nutrition Mgmt, Infection Prevention, Medication Management & Education, Management of Risks & Complications, Nutrition Management, Pain Management, Patient/Family Support, Safety Management Intensity of Therapy to be met Patient to be seen: Min.3h per day/5 of 7d PT IPOC Problem List: Activity Tolerance, Functional Strength, Safety, Balance, Gait, Transfer, Bed Mobility, ROM Treatment Plan: Continue Plan of Care Bed Mobility, Education, Functional Activity Pauly, Functional Strength, Group Therapy, Gait, Safety, Therapeutic Exercise, Transfers Treatment Duration: Nov 03, 2021 Frequency: At least 5 of 7 days/Wk (IRF) Estimated Hrs Per Day: .25 hour per day OT IPOC Problems: Decreased Activ Tolerance, Decreased Safety Aware, Decreased UE Strength, Impaired Coordination, Impaired Funct Balance, Impaired I ADL's, Impaired Self-Care Skills, Visual-Perceptual Deficit OT Treatment, Training and Edu: Yes Plan of Care: ADL Retraining, Functional Mobility, Group Exercise/Act as Ind, UE Funct Exercise/Act Treatment Duration: November 14, 2021 Frequency: At least 5 of 7 days/Wk (IRF) Estimated Hrs Per Day: 1.5 hours per day (60-90 min/day ) ST IPOC Speech Therapy Treatment Plan: Discontinue ST Treatment Duration: Nov 03, 2021 Frequency: Modified Program (IRF) Estimated Hrs Per Day: Other Electric Meter Installer Helper/Case Mgmt Electric Meter Installer Helper/Case Managemen: Discharge Planning Dietitian/Instrumentation And Control Technician Dietitian/Instrumentation And Control Technician to monitor nutritional status and make changes and/or recommendations as needed and work with speech pathology on dietary upgrades as the occur. Physician IPOC Medical Issues being managed closely and that require the 24 hour availability of a physician: Patient with very brittle and severe diabetes with recent CVA and critical illne ss will require close monitoring to prevent decompensation hyperosmolar hyperglycemic nonketotic state. Medical Issues: Bowel/Bladder Function, DVT Prophylaxis, Falls Precautions, Fluid/Electrolyte/Nutrition Balance, Infection Protection, Pain Management Brief Synthesis of Preadmission Screen, Post-Admission Evaluation, and Therapy Evaluations: PT and OT will focus on regaining function and increasing stamina and strength and resuming independent ADLs in order to return back home Medical Prognosis: Fair Anticipated Length of Stay: 7 days TONG MAGALLON DO Nov 03, 2021 06:10
--- NOTE | 2021-11-03 06:10 | PM&R Progress Note ---
Subjective HPI/CC On Admission Date Seen by Provider: Nov 03, 2021 Time Seen by Provider: 10:30 Subjective/Events-last exam 11/03/2021: Patient doing really well today Working on stamina and strength Blood sugars very labile Patient with very brittle diabetes Restarted her long-acting insulin No pain reported except for chronic back pain Review of Systems General: Fatigue, Malaise Neurological: Weakness Objective Exam Vital Signs Vital Signs Date Time Temp Pulse Resp B/P (MAP) Pulse Ox O2 Delivery O2 Flow Rate FiO2 11/03/21 21:48 98 Room Air 11/03/21 20:00 37.3 98 16 132/63 (86) Capillary Refill : General Appearance: No Apparent Distress, WD/WN, Chronically ill, Thin HEENT: PERRL/EOMI, Normal ENT Inspection, Pharynx Normal Neck: Full Range of Motion, Normal Inspection, Non Tender, Supple, Carotid Bruit Respiratory: Chest Non Tender, Lungs Clear, Normal Breath Sounds, No Accessory Muscle Use, No Respiratory Distress Cardiovascular: Regular Rate, Rhythm, No Edema, No Gallop, No JVD, No Murmur, Normal Peripheral Pulses Gastrointestinal: Normal Bowel Sounds, No Organomegaly, No Pulsatile Mass, Non Tender, Soft Back: Normal Inspection, No CVA Tenderness, No Vertebral Tenderness Extremity: Normal Capillary Refill, Normal Inspection, Normal Range of Motion, Non Tender, No Calf Tenderness, No Pedal Edema Neurologic/Psychiatric: Alert, Oriented x3, guest relations officer II-XII Norm as Tested, Abnormal Gait, Depressed Affect, Motor Weakness (Generalized) Skin: Normal Color, Warm/Dry Lymphatic: No Adenopathy Results/Procedures Lab Patient resulted labs reviewed. FIM Transfers Therapy Code Descriptions/Definitions Functional [place] Measure: 0=Not Assessed/NA 4=Minimal Assistance 1=Total Assistance 5=Supervision or Setup 2=Maximal Assistance 6=Modified [place] 3=Moderate Assistance 7=Complete IndependenceSCALE: Activities may be completed with or without assistive devices. 9-Tldijjhbzt-nsmjrku completes the activity by him/herself with no assistance from a helper. 5-Set-up or Clean-up Assistance-helper sets up or cleans up; patient completes activity. [place] assists only prior to or following the activity. 4-Supervision or Touching Assistance-helper provides verbal cues and/or touching/steadying and/or contact guard assistance as patient completes activity. Assistance may be provided throughout the activity or intermittently. 3-Partial/Moderate Assistance-helper does LESS THAN HALF the effort. [place] lifts, holds or supports trunk or limbs, but provides less than half the effort. 2-Substantial/Maximal Assistance-helper does MORE THAN HALF the effort. [place] lifts or holds trunk or limbs and provides more than half the effort. 9-Itccuudef-otqtcp does ALL the effort. Patient does none of the effort to complete the activity. Or, the assistance of 2 or more helpers is required for the patient to complete the activity. If activity was not attempted, code reason: 7-Patient Refused. 9-Not Applicable-not attempted and the patient did not perform the activity before the current illness, exacerbation or injury. 10-Not Attempted due to Environmental Limitations-(lack of equipment, weather restraints, etc.). 88-Not Attempted due to Medical Conditions or Safety Concerns. Roll Left to Right (QC): 6 Sit to Lying (QC): 6 Sit to Stand (QC): 4 (CGA) Chair/Hzg-rp-Uuswk Xfer(QC): 4 (CGA) Car Transfer (QC): 4 (SBA) Gait Training Does the Patient Walk?: Yes Walk 10 feet (QC): 4 (CGA) Walk 50 ft with 2 Turns(QC): 4 (CGA) Walk 150 ft (QC): 88 Walking 10ft/uneven surface-QC: 4 (CGA) Gait Assistive Device: FWW Wheelchair Training Does the Pt Use a Wheelchair?: No Wheel 50 ft with 2 turns (QC): 9 Wheel 150 ft (QC): 9 Stair Training 1 Step (curb) (QC): 4 (CGA) 4 Steps (QC): 4 (CGA) 12 Steps (QC): 88 Balance Picking up an Object (QC): 4 (CGA) ADL-Treatment Eating (QC): 6 Oral Hygiene (QC): 4 Shower/Bathe Self (QC): 7 Upper Body Dressing (QC): 7 Lower Body Dressing (QC): 7 On/Off Footwear (QC): 4 Toileting Hygiene (QC): 4 Assessment/Plan Assessment and Plan Assess & Plan/Chief Complaint Assessment: 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 History of C. difficile Plan: Inpatient rehab protocol Supportive care Blood sugar monitoring Monitor kidney function 11/03/2021: Supportive care Monitor closely Blood sugar management (1) CVA (cerebral vascular accident) (2) Diabetes mellitus Status: Chronic (3) CAD (coronary artery disease) Status: Chronic (4) Hyperlipidemia Status: Chronic (5) PAD (peripheral artery disease) Status: Chronic (6) Diabetes mellitus, insulin dependent (IDDM), uncontrolled Status: Acute (7) ROSA (acute kidney injury) Status: Acute (8) COPD (chronic obstructive pulmonary disease) Status: Chronic (9) CKD (chronic kidney disease) stage 3, GFR 30-59 ml/min Status: Chronic (10) Coronary artery disease without angina pectoris (11) Primary hypertension (12) Mixed hyperlipidemia TONG MAGALLON DO Nov 03, 2021 06:10
[2021-11-03] MEDS: HYDROcodone/APAP 5 MG/325 MG (LORTAB) TAB PO PRN ×4 (06:11→21:06)
[2021-11-03] MEDS ORDERED: LEVOTHYROXINE 50 MCG (LEVOTHROID) TAB PO SCH (06:30)
[2021-11-03] MEDS ORDERED: LEVOTHYROXINE 150 MCG (LEVOTHROID) TAB PO SCH (06:30)
[2021-11-03] MEDS: RT--FLUTICASONE/SALMETEROL 113-14 (AIRDUO RespiCLICK) IH SCH ×2 (06:46→21:48)
[2021-11-03] MEDS: CLOPIDOGREL 75 MG (PLAVIX) TABLET PO SCH (07:32)
[2021-11-03] MEDS: NICOTINE 21 MG (NICODERM) PATCH TD SCH (07:32)
[2021-11-03] MEDS: FOLIC ACID 1 MG TAB PO SCH (07:33)
[2021-11-03] MEDS: DOCUSATE SODIUM 100 MG (COLACE) CAP PO SCH ×2 (07:33→21:09)
[2021-11-03] MEDS: SENNA W/DOCUSATE (SENOKOT S) TABLET PO SCH ×2 (07:33→21:09)
[2021-11-03] MEDS: NICOTINE PATCH REMOVAL TP SCH (07:33)
[2021-11-03] MEDS: APIXABAN 5 MG (ELIQUIS) TABLET PO SCH ×2 (07:33→20:41)
[2021-11-03 07:48] VITALS: BP 144/66
--- NOTE | 2021-11-03 08:01 | Consultation-Cardiology ---
HPI-Cardiology Cardiology Consultation: Date of Consultation 11/03/21 Time Seen by a Provider: 09:05 Date of Admission 11-02-21 Attending Physician Tonja Magallon DO Admitting Physician Juan R Dodge DO Consulting Physician Karie Jeffries MD HPI: Chief Complaint: CVA Ms. Yates is a 61 yr old female who has been admitted to [facility] following discharge from [facility]. She reports a long hospitalization at [place] with sepsis, pneumonia, DKA, renal failure and stroke. She states she continues to have some drooling from the left side of her mouth, left upper and lower extremity weakness. She reports the symptoms are improving. No c/o CP, SOB, palpitations, syncope, near syncope or LE swelling. She is up with PT at this time. Review of Systems-Cardiology Review of Systems Constitutional: No chills, No fever, No malaise Eyes: No vision change Ears/Nose/Throat: No epistaxis, No recent hearing loss Respiratory: As described under HPI Cardiovascular: As described under HPI Gastrointestinal: No constipation, No diarrhea, No nausea, No vomiting Genitourinary: No dysuria Musculoskeletal: no symptoms reported Skin: No rash on exposed areas, No ulcerations on exposed areas Psychiatric/Neurological: other (left upper and lower extremity weakness; left side facial droop) Hematologic: No bleeding abnormalities All Other Systems Reviewed Negative Unless Noted: Yes SLL-Defiek-[place] Hx Patient Social History Marrital Status: single Employed/Student: retired Smoking Status: Current Everyday Smoker 2nd Hand Smoke Exposure: No Have you traveled recently?: No Alcohol Use?: No Pt feels they are or have been: No Tobacco type used: Cigars Immunizations Up To Date Tetanus Booster (TDap): Unknown Date of Pneumonia Vaccine: Apr 02, 2013 Date of Influenza Vaccine: May 05, 2020 Past Medical History PMH As described under Assessment. Family Medical History Family Medical History: .Reported h/o father having CHF. Mother having CAD (onset before age 60), stroke and HTN Family History: 19 FATHER Congestive heart failure, Onset:60 years & older Family history: Asthma, Onset:Unknown 19 MOTHER Chest pain, Onset:Unknown Family history: Alzheimer's disease, Onset:50's - 60 Family history: Arthritis, Onset:Unknown Family history: Cardiovascular disease, Onset:50's - 60 Family history: Coronary thrombosis, Onset:Unknown Family history: Diabetes mellitus, Onset:Unknown Family history: Hypertension, Onset:50's - 60 Family history: Thyroid disorder, Onset:50's - 60 Heart disease, Onset:50's - 60 Myocardial infarction, Onset:50's - 60 G8 BROTHER Cancer, Onset:Unknown Cancer of colon, Onset:Unknown Human immunodeficiency virus (HIV) seropositivity, Onset:40's - 50 G8 BROTHER Cancer, Onset:Unknown Relation not specified for: Colon cancer Allergies and Home Medications Allergies Coded Allergies: ciprofloxacin (Verified Allergy, Mild, redness and itching , 12/04/18) redness and itching at iv site Patient Home Medication List Home Medication List Reviewed: Yes Albuterol Sulfate (Proair Hfa) 1 Puff Puff, 2 PUFF IH Q4H PRN for SHORTNESS OF BREATH, (Reported) Entered as Reported by: JUAN R PEDROZA on 11/02/211646 Last Action: Continued Apixaban (Eliquis) 5 Mg Tablet, 5 MG PO BID, (Reported) Entered as Reported by: JUAN R PEDROZA on 11/02/211646 Last Action: Held Atorvastatin Calcium (Atorvastatin Calcium) 40 Mg Tablet, 40 MG PO HS, (Reported) Entered as Reported by: JUAN R PEDROZA on 11/09/20 1153 Last Action: Continued Buspirone HCl (Buspirone HCl) 5 Mg Tablet, 5 MG PO BID, (Reported) Entered as Reported by: JUAN R PEDROZA on 11/04/21 1148 Last Action: Reviewed Calcitriol (Calcitriol) 0.25 Mcg Capsule, 0.25 MCG PO HS, (Reported) Entered as Reported by: ERROL DAVIS on 07/30/21 0331 Last Action: Reviewed Clopidogrel Bisulfate (Clopidogrel) 75 Mg Tablet, 75 MG PO DAILY, (Reported) Entered as Reported by: JUANR PEDROZA on 09/03/20 1999 Last Action: Held Diltiazem HCl (Diltiazem 24Hr ER) 240 Mg Cap.er.24h, 240 MG PO HS, (Reported) Entered as Reported by: JUAN R PEDROZA on 11/02/211646 Last Action: Reviewed Fluticasone/Umeclidin/Vilanter (Trelegy Ellipta 100-62.5-25) 1 Each Blst.w.dev, 1 EACH IH DAILY, (Reported) Entered as Reported by: ERROL DAVIS on 07/30/21330 Last Action: Converted Folic Acid (Folic Acid) 1 Mg Tablet, 1 MG PO DAILY, (Reported) Entered as Reported by: JUAN R PEDROZA on 11/02/211646 Last Action: Continued Gabapentin (Gabapentin) 100 Mg Capsule, 100 MG PO HS PRN for PAIN-BREAKTHROUGH, (Reported) Entered as Reported by: EFE PATTERSON on 12/20/15 1348 Last Action: Continued Insulin Aspart (Insulin Aspart) 100 Unit/1 Ml Vial, UNITS SC AC, (Reported) Entered as Reported by: JUAN R PEDROZA on 11/09/201152 Last Action: Held Insulin Determir (Levemir) 1,000 Units/10 Ml Soln, 14 UNITS SQ HS, (Reported) Entered as Reported by: JUAN R PEDROZA on 11/09/201152 Last Action: Continued Insulin Determir (Levemir) 100 Unit/Ml Soln, 16 UNITS SQ DAILY, (Reported) Entered as Reported by: JUAN R PEDROZA on 11/02/211646 Last Action: Continued Levothyroxine Sodium (Levothyroxine Sodium) 25 Mcg Tablet, 25 MCG PO DAILY, (Reported) Entered as Reported by: JUAN R PEDROZA on 11/02/211646 Last Action: Continued Levothyroxine Sodium (Levothyroxine Sodium) 200 Mcg Tablet, 200 MCG PO DAILY, (Reported) Entered as Reported by: JUAN R PEDROZA on 11/02/211646 Last Action: Converted Lisinopril (Lisinopril) 20 Mg Tablet, 10 MG PO HS, (Reported) Entered as Reported by: ERROL DAVIS on 07/30/21330 Last Action: Continued Meclizine HCl (Meclizine HCl) 12.5 Mg Tablet, 12.5 MG PO Q6H PRN for DIZZINESS, (Reported) Entered as Reported by: JUAN R PEDROZA on 11/02/211646 Last Action: Converted Montelukast Sodium (Montelukast Sodium) 10 Mg Tablet, 10 MG PO HS, (Reported) Entered as Reported by: ERROL DAVIS on 07/30/21330 Last Action: Continued Pantoprazole Sodium (Pantoprazole Sodium) 40 Mg Tablet.dr, 40 MG PO BID, (Reported) Entered as Reported by: JUAN R PEDROZA on 11/09/20 1153 Last Action: Continued Paroxetine HCl (Paroxetine HCl) 40 Mg Tablet, 40 MG PO DAILY, (Reported) Entered as Reported by: LUIS TOWNSEND on 11/30/15 1408 Last Action: Converted Discontinued Medications Albuterol Sulfate (Proair Respiclick) 90 Mcg Aer.pow.ba, 90 MCG INH Q4H PRN for WHEEZING, (Reported) Discontinued Reason: Duplicate Order Entered as Reported by: ERROL DAVIS on 07/30/21330 Last Action: Discontinued Amlodipine Besylate (Amlodipine Besylate) 5 Mg Tablet, 5 MG PO DAILY, (Reported) Discontinued Reason: No Longer Taking Entered as Reported by: ERROL DAVIS on 07/30/21330 Last Action: Discontinued Apixaban (Eliquis) 2.5 Mg Tablet, 2.5 MG PO BID Discontinued Reason: No Longer Taking Prescribed by: TONJA MAGALLON on 07/30/21 1229 Last Action: Discontinued Aspirin (Aspirin) 81 Mg Tab.chew, 81 MG PO DAILY, (Reported) Discontinued Reason: No Longer Taking Entered as Reported by: TALAT CASTELLANOS on 12/04/18 1404 Last Action: Discontinued Buspirone HCl (Buspirone HCl) 5 Mg Tablet, 5 MG PO BID, (Reported) Discontinued Reason: No Longer Taking Entered as Reported by: EFE PATTERSON on 12/20/15 1348 Last Action: Discontinued Diltiazem HCl (Diltiazem 24Hr ER) 240 Mg Cap.er.24h, 240 MG PO DAILY Discontinued Reason: Duplicate Order Prescribed by: TONJA MAGALLON on 10/15/21 1157 Last Action: Discontinued Docusate Sodium (Colace) 100 Mg Capsule, 100 MG PO DAILY PRN for CONSTIPATION- 1ST LINE, (Reported) Discontinued Reason: No Longer Taking Entered as Reported by: JUAN R PEDROZA on 11/09/20 1153 Last Action: Discontinued Hydrocodone/Acetaminophen (Hydrocodone-Acetamin 5-325 mg) 1 Each Tablet, 5-325 MG PO Q6H PRN for PAIN-BREAKTHROUGH, (Reported) Discontinued Reason: No Longer Taking Entered as Reported by: ERROL DAVIS on 07/30/21330 Last Action: Discontinued Hyoscyamine Sulfate (Hyoscyamine Sulfate) 0.125 Mg Tab.subl, 0.125 MG SL Q4H PRN for SPASMS Discontinued Reason: No Longer Taking Prescribed by: DAWSON DEL ROSARIO on 11/12/20 1020 Last Action: Discontinued Levothyroxine Sodium (Euthyrox) 175 Mcg Tablet, 175 MCG PO DAILY, (Reported) Discontinued Reason: No Longer Taking Entered as Reported by: JUAN R PEDROZA on 09/03/20 1559 Last Action: Discontinued Meclizine HCl (Meclizine HCl) 12.5 Mg Tablet, 12.5 MG PO Q6H PRN for DIZZINESS Discontinued Reason: Duplicate Order Prescribed by: TONJA MAGALLON on 10/15/21 1157 Last Action: Discontinued Promethazine HCl (Promethazine Tablet) 25 Mg Tablet, 25 MG PO Q8H PRN for NAUSEA/VOMITING, (Reported) Discontinued Reason: No Longer Taking Entered as Reported by: ERROL DAVIS on 07/30/21 0331 Last Action: Discontinued Physical Exam-Cardiology Physical Exam Vital Signs/I&O 11/09/21 11/09/21 11/09/21 07:01 07:31 08:14 Temp 36.4 Pulse 87 Resp 16 B/P (MAP) 146/70 (95) Pulse Ox 98 O2 Delivery Room Air Room Air Room Air Capillary Refill : Constitutional: AAO x 3, well-developed, other (thin) HEENT: PERRL, hearing is well preserved, oral hygience is good Neck: No carotid bruit; carotid pulses are 2 + bilaterally Respiratory: No accessory muscle use, No respiratory distress; chest expansion is symmetric, chest is bilaterally symmetric, lungs clear to auscultation Cardiovascular: regular rate-rhythm; No JVD; S1 and S2, systolic murmur Gastrointestinal: No tender; soft, round, audible bowel sounds Extremities: no lower extremity edema bilateral Neurologic/Psychiatric: other (RUE and RLE 5/5; LUE and LLE 4/5) Skin: No rash on exposed areas, No ulcerations on exposed areas Data Review Labs A/P-Cardiology Assessment/Admission Diagnosis Recent hospitalization at [facility] d/t sepsis, DKA and renal failure CVA - Acute to subacute, 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 Crenshaw's note of 10-29-21 ([facility]) - Residual LUE, LLE weakness and left sided facial droop PAF - Eliquis 5mg BID CAD, s/p CABG - Cardiac cath of 12-28-15 showed severe MVD, LVEF 60%, elevated LVEDP. CABG x 4 on 12-30-[address] Doherty at [facility]: 1. PAUL to LAD, reverse saphenous vein graft to OM2, sequential to RPDA and reverse saphenous vein graft to diagonal 2. Excision of the aortic cusp fibroelastoma - MPI of 03-15-21: no evidence of significant ischemia or infarction, LVEF 60% - Echo of 03-08-21 showed mod concentric hypertrophy. LVEF 70-75%. No regional wall motion abnormalities. Grade 2 diastolic dysfunction. Mitral valve annulus mild to mod calcified with mild to mod regurg. Mild AoV stenosis. Mod TR. PASP 50-55mmHg Right CEA on 12-30-15 at the time of CABG by Dr. Doherty - carotid u/s of Jul 2018 showed mild carotid arterial disease PAD and claudication (L>R) - S/p 7x60 mm stenting of the R common iliac (post-dilated with an 8 mm balloon) on 08/15/16 that has resulted in resolution of R leg claudication. There is two- vessel runoff in the legs with mod to severe diffuse disease - Seg pressures of September 2020: mod obstructive PAD of the R lower limb and severe distal disease of the L lower limb - Arterial doppler of 10-28-21 at [facility] showed mild to mod diffuse bilat leg calcified plaque with no acute occlusion or high-grade stenosis. The left leg arteri GI - S/P cholecystectomy COPD - managed by PCP Tobacco use (1PPD) -cessation is advised DM I - complicated by CKD 3 CKD 3 - followed by PCP who has referred her to Nephrology in [place] (Feb 2021) Hyperlipidemia - treated with atorvastatin (Dr Sanchez following blood work) Hypertension - with evidence of LVH on ECG Palpitations - Zio monitor of 06-18-17 to 07-02-17 showed very brief episodes of SVT with the fastest lasting 7 beats at 214 bpm - PAF diagnosed on an ER visit of 07/29/21 Discussion and Recomendations Continue current medication regimen Monitor lab from time to time Replace electrolytes as indicated Further recs will be based on her hospital course We would like to thank medical services for this consult ARNEL ZHOU Nov 03, 2021 08:01
[2021-11-03] MEDS: polyethylene glycoL POWDER 17 GM (MIRALAX) PACK PO SCH ×3 (08:08→21:09)
--- NOTE | 2021-11-03 09:30 | Physical Therapy Daily Note ---
PT Daily Note-Current Subjective Pt. finishing her breakfast. Pt. shares her medical history and some of her financial challenges since being sick for over a year. Pt also shares that she is depressed and wants to be a bigger part of her grandchildrens lives. C/o pain in thoracic left at 8/10. Pain Numeric Pain Scale: 8 Location: Left Location Body Site: Back (thoracic area) Pain Description: Pressure Mental Status Patient Orientation: Normal For Age Transfers SCALE: Activities may be completed with or without assistive devices. 3-Twitqxfxnk-tkwsmxc completes the activity by him/herself with no assistance from a helper. 5-Set-up or Clean-up Assistance-helper sets up or cleans up; patient completes activity. [place] assists only prior to or following the activity. 4-Supervision or Touching Assistance-helper provides verbal cues and/or touching/steadying and/or contact guard assistance as patient completes act ivity. Assistance may be provided throughout the activity or intermittently. 3-Partial/Moderate Assistance-helper does LESS THAN HALF the effort. [place] lifts, holds or supports trunk or limbs, but provides less than half the effort. 2-Substantial/Maximal Assistance-helper does MORE THAN HALF the effort. [place] lifts or holds trunk or limbs and provides more than half the effort. 9-Kmvqmwsrp-jxyywh does ALL the effort. Patient does none of the effort to complete the activity. Or, the assistance of 2 or more helpers is required for the patient to complete the activity. If activity was not attempted, code reason: 7-Patient Refused. 9-Not Applicable-not attempted and the patient did not perform the activity before the current illness, exacerbation or injury. 10-Not Attempted due to Environmental Limitations-(lack of equipment, weather restraints, etc.). 88-Not Attempted due to Medical Conditions or Safety Concerns. Roll Left & Right (QC): 6 Sit to Lying (QC): 6 Lying to Sitting/Side of Bed(Q: 6 Sit to Stand (QC): 6 Chair/Fef-sg-Ibmbx Xfer(QC): 4 Toilet Transfer (QC): 6 Pt. shares that her toilet at home is too low and has been difficult to TR[place] from, [facility] [place] to assist pt. pt was instructed to sit in chairs with arms and to use them vs pulling on walker Gait Training Does the Patient Walk?: Yes Walk 10 feet (QC): 4 Walk 50 ft with 2 Turns(QC): 4 Walk 150 ft (QC): 4 Gait Persons Needed: 1 Gait Assistive Device: Walker 4 Wheeled pt. shares that she occas has dizziness upon standing . Pt. was instructed to stay at chair if she had symptoms of dizziness. Pt also shares that she cannot get the 4WW into her bthrm and feels vulnerable but has to palm and walk without a device into bthrm. Pt. was introduced to std FWW . pt did not like it but it is encouraged that pt. utilize bot devices, Pt. ambulated 50ft x2, [id number], 75 x1 all CGA , no LOB but does needs some guidance to steer around objects Exercises Seated Therapy Exercises: Ankle pumps, Sit to stand, Long arc quads, Hip flexion, Hip abd/add Seated Reps: 15 NuStep Minutes: 9 NuStep Workload: 1 Treatments pt. used MHP via damp towel warmed in MW for1.5 mins and monitored for 6 min duration. Pt. states this provided some relief Assessment Current Status: Good Progress PT Short Term Goals Short Term Goals Time Frame: November 09, 2021 Roll Left & Right: 6 Sit to lyin Lying to sitting on side of be: 6 Sit to stand: 4 (SBA) Chair/nwb-ew-apbpw transfer: 4 (SBA) Walk 10 feet: 4 (SBA) Walk 50 feet with two turns: 4 (SBA) Walk 150 feet: 4 (SBA) PT Penitentiary Goals Penitentiary Goals PT Health Teacher Goals Time Frame: November 23, 2021 Roll Left & Right (QC): 6 Sit to Lying (QC): 6 Lying-Sitting on Side/Bed(QC): 6 Sit to Stand (QC): 6 Chair/Owo-xf-Gpiuz Xfer(QC): 6 Toilet Transfer (QC): 6 Car Transfer (QC): 6 Does the Patient Walk: Yes Walk 10 feet (QC): 6 Walk 50ft with 2 Turns (QC): 6 Walk 150 ft (QC): 6 Walking 10ft on Uneven Surface: 6 1 Step (curb) (QC): 6 4 Steps (QC): 6 12 Steps (QC): 88 Picking up an Object (QC): 6 Does the Pt use WC or Scooter?: No Wheel 50 feet with 2 turns (QC: 9 Type: N/A Wheel 150 feet: 9 Type: N/A PT Plan Treatment/Plan Treatment Plan: Continue Plan of Care Treatment Plan: Education, Functional Activity Pauly, Functional Strength, Group Therapy, Gait, Safety, Therapeutic Exercise, Transfers Treatment Duration: November 23, 2021 Frequency: At least 5 of 7 days/Wk (IRF) Estimated Hrs Per Day: 1.5 hours per day Patient and/or Family Agrees t: Yes Safety Risks/Education Patient Education: Gait Training, Transfer Techniques, Correct Positioning, Disease Process, Safety Issues Teaching Recipient: Patient Teaching Methods: Demonstration, Discussion Response to Teaching: Verbalize Understanding, Return Demonstration, Reinforcement Needed Time/GCodes Time In: 800 Time Out: 900 Total Billed Treatment Time: 60 Total Billed Treatment 1,GT30m,EX30m ANANTH GAYTAN PRE CODER Nov 03, 2021 09:30
--- NOTE | 2021-11-03 10:29 | Occupational Ther Daily Note ---
OT Current Status-Daily Note Subjective Pt reports chronic back pain, no other complaints. Appearance Pt left sitting in recliner, all needs within reach. Mental Status/Objective Patient Orientation: Person, Place, Situation ADL-Treatment Therapy Code Descriptions/Definitions Functional [place] Measure: 0=Not Assessed/NA 4=Minimal Assistance 1=Total Assistance 5=Supervision or Setup 2=Maximal Assistance 6=Modified [place] 3=Moderate Assistance 7=Complete IndependenceSCALE: Activities may be completed with or without assistive devices. 3-Esymxszzke-alatxvp completes the activity by him/herself with no assistance from a helper. 5-Set-up or Clean-up Assistance-helper sets up or cleans up; patient completes activity. [place] assists only prior to or following the activity. 4-Supervision or Touching Assistance-helper provides verbal cues and/or touching/steadying and/or contact guard assistance as patient completes activity. Assistance may be provided throughout the activity or intermittently. 3-Partial/Moderate Assistance-helper does LESS THAN HALF the effort. [place] lifts, holds or supports trunk or limbs, but provides less than half the effort. 2-Substantial/Maximal Assistance-helper does MORE THAN HALF the effort. [place] lifts or holds trunk or limbs and provides more than half the effort. 6-Wjvogzwvl-zfbnge does ALL the effort. Patient does none of the effort to complete the activity. Or, the assistance of 2 or more helpers is required for the patient to complete the activity. If activity was not attempted, code reason: 7-Patient Refused. 9-Not Applicable-not attempted and the patient did not perform the activity before the current illness, exacerbation or injury. 10-Not Attempted due to Environmental Limitations-(lack of equipment, weather restraints, etc.). 88-Not Attempted due to Medical Conditions or Safety Concerns. Eating (QC): 6 Oral Hygiene (QC): 4 (supervision for balance) Shower/Bathe Self (QC): 4 Upper Body Dressing (QC): 5 Lower Body Dressing (QC): 4 On/Off Footwear: 5 Toileting Hygiene (QC): 4 Toilet Transfer (QC): 4 Shower performed; majority completed in sitting. Pt stood only briefly to wash ismael area/buttocks with supervision for safety; intermittent single UE support on grab bar. No LOB or unsteadiness observed. She stat on 4ww seat to don clothing. Supervision for safety as she stood to pull LB clothing up to waist, mild unsteadiness but no significant LOB. Good recall on using cross over method for energy conservation when donning socks/shoes, and LB clothing over feet. She stood at the sink to comb hair and brush teeth, supervision for safety. With prolong standing, pt's LE's do begin to tremble, cues to sit and rest. Other Treatment Pt participated in UE exercises with 2# dowel frantz. Goal to promote increased strength and endurance needed for functional tasks. She fatigues easily and requires AAROM for last 2-3 reps. No resistance added for all overhead exercises. 10-12 reps x1, all planes. LUE does appear to be slightly weaker than Right. Isometric Holds shoulder flexion x3; 25, 30, and 35 seconds with goal to increase muscle strength. Education OT Patient Education: Correct positioning, Energy conservation, Exercise program, Modified ADL techniques, Progress toward Goal/Update tx plan, Purpose of tx/functional activities, Rehab process Teaching Recipient: Patient Teaching Methods: Demonstration, Discussion Response to Teaching: Verbalize Understanding, Return Demonstration, Reinforcement Needed OT Short Term Goals Short Term Goals Time Frame: November 09, 2021 Eatin Oral hygiene: 5 Toileting hygiene: 4 Shower/bathe self: 4 Upper body dressin Lower body dressin Putting on/taking off footwear: 5 OT Nursing Home Goals Nursing Home Goals Time Frame: November 14, 2021 Eating (QC): 6 Oral Hygiene (QC): 6 Toileting Hygiene (QC): 6 Shower/Bathe Self (QC): 6 Upper Body Dressing (QC): 6 Lower Body Dressing (QC): 6 On/Off Footwear (QC): 6 1=Demonstrate adherence to instructed precautions during ADL tasks. 2=Patient will verbalize/demonstrate understanding of assistive devices/modific ations for ADL. 3=Patient will improve strength/tolerance for activity to enable patient to perform ADL's. OT Education/Plan Problem List/Assessment Assessment: Decreased Activ Tolerance, Decreased UE Strength, Impaired Funct Balance, Impaired I ADL's, Impaired Self-Care Skills Discharge Recommendations Plan/Recommendations: Continue POC Treatment Plan/Plan of Care Treatment,Training & Education: Yes Patient would benefit from OT for education, treatment and training to promote independence in ADL's, mobility, safety and/or upper extremity function for ADL's. Plan of Care: ADL Retraining, Functional Mobility, Group Exercise/Act as Ind, UE Funct Exercise/Act Treatment Duration: November 14, 2021 Frequency: At least 5 of 7 days/Wk (IRF) Estimated Hrs Per Day: 1.5 hours per day (60-90 min/day ) Agreement: Yes Rehab Potential: Fair Time/GCodes Start Time: 09:00 Stop Time: 10:15 Total Time Billed (hr/min): 75 Billed Treatment Time 1 visit ADL x3 (40 min) EX x2 (35 min) Marnie Williamson OT Nov 03, 2021 10:29
--- NOTE | 2021-11-03 11:36 | ST Cognitive Linguistic Eval ---
Speech Evaluation-General Medical Diagnosis CVA Onset Date: Oct 25, 2021 Therapy Diagnosis Therapy Diagnosis: Mild Neurocognitive Impairment Precautions Precautions: Fall Precautions/Isolations: Fall Prevention, Standard Precautions Referral Referring Physician: Dr. Rivers Reason for Referral: Evaluation/Treatment Medical History Pertinent Medical History: Atrial Fib, COPD, CVA, DM Current History The patient is a 61-year-old female with a past medical history of CABG, COPD, pneumonia, CAD, high cholesterol, HTN, and GERD, who presents to ARU for improved left sided strengthening following a stroke. Reviewed History: Yes Social History Current Living Status: Friend Speech PLF-Current Status Prior Level of Function The patient reported she feels her cognition is "slowly slipping." The patient stated she does not experience anything "drastic" but does feel it takes her longer to complete her crossword puzzles. Subjective The patient was seated upright in her recliner, awake and alert upon entrance to her room by the clinician. The patient greeted the clinician appropriately and was agreeable to participation in the cognitive linguistic assessment. Language Eval: Auditory Comprehends Simple Yes/No Ques: Functional Indent/Objects Multiple Gray: Functional Ident/Pics in Multiple Gray: Functional Follows 1-Step Commands: Functional Follows Complex Directions: Functional Follows General Conversations: Functional Language Eval: Verbal Language Completes Spontaneous Greeting: Functional Produces Auto, Serial Info: Functional Imitates Simple Words/Phrases: Functional Word Finding: Mild Requests Basic Needs: Functional States Basic Personal Info: Functional Expresses Complex Ideas: Functional Language Evaluation: Reading Follows Simple Written Direct: Functional Language Evaluation: Writing Writes to Simple Dictation: Functional Objective Cognitive Domain Attention: WNL Memory: Mild Problem Solving: Mild Executive Functions: Mild Visuospatial Skills: WNL Composite Severity Rating: Mild Clock Drawing Severity Rating: WNL Objective Formal/Standardized Tests [facility] Mental Status Exam ([facility]) Results The patient demonstrated a result of +21/30 on the SLUMS correlating to a result of a mild neurocognitive impairment. Oral Motor/Speech Production The patient does not demonstrate dysarthria or apraxia of speech. The patient remained 100% intelligible in known and unknown contexts. Impression The patient demonstrated a mild cognitive linguistic impairment, most notably in the areas of word finding and memory. Speech Patient Assess Expression of Ideas/Wants: Expression (4) Understanding Verbal Content: Understands (4) Brief Interview-Mental Status: Yes Repetition of Three Words: Three (3) Temporal Orientation: Year: Correct (3) Temporal Orientation: Month: Accurate within 5 days(2) Temporal Orientation: Day: Correct (1) Recall : Wear to say "Sock": Yes, no cue required (2) Recall : Color: Yes, no cue required (2) Recall : Bed: Yes,after cueing (1) Memory/Recall Ability: Current season, Location of own room, Staff names and faces, That he or she is in a hsp/hsp unit Speech Short Term Goals Short Term Goals Short Term Goals 1. The patient will demonstrate 90% accuracy with memory exercises, independently. Time Frame-STG: Five Days. Speech Watch Repair Person Goals Alf Goals 1. The patient will demonstrate improved cognitive linguistic skills for safe discharge to the least restrictive environment. Time Frame: One Week. Speech-Plan Treatment Plan Speech Therapy Treatment Plan: Continue Plan of Care Frequency: Modified Program (IRF) Estimated Hrs Per Day: .5 hour per day Rehab Potential: Good Pt/Family Agrees to Plan: Yes Safety Risks/Education Teaching Recipient: Patient Teaching Methods: Discussion Response to Teaching: Verbalize Understanding Education Topics Provided: Results of KISHOR, Speech Pathology POC Time Speech Therapy Time In: 11:00 Speech Therapy Time Out: 11:30 Total Billed Time: 30 Billed Treatment Time 1, KARISHMA DALAL [facility]IZAB[facility] ST Nov 03, 2021 11:36
--- NOTE | 2021-11-03 13:09 | Physical Therapy Daily Note ---
PT Daily Note-Current Subjective Pt. in recliner asleep. Agrees to therex. States LE ex in supine is taxing "hard". Back pain is better this afternoon Pain Location: No Pain Reported Mental Status Patient Orientation: Normal For Age Transfers SCALE: Activities may be completed with or without assistive devices. 2-Ehufjpmtao-tbqyzli completes the activity by him/herself with no assistance from a helper. 5-Set-up or Clean-up Assistance-helper sets up or cleans up; patient completes activity. [place] assists only prior to or following the activity. 4-Supervision or Touching Assistance-helper provides verbal cues and/or touching/steadying and/or contact guard assistance as patient completes activity. Assistance may be provided throughout the activity or intermittently. 3-Partial/Moderate Assistance-helper does LESS THAN HALF the effort. [place] lifts, holds or supports trunk or limbs, but provides less than half the effort. 2-Substantial/Maximal Assistance-helper does MORE THAN HALF the effort. [place] lifts or holds trunk or limbs and provides more than half the effort. 5-Txntuihae-lfyixr does ALL the effort. Patient does none of the effort to complete the activity. Or, the assistance of 2 or more helpers is required for the patient to complete the activity. If activity was not attempted, code reason: 7-Patient Refused. 9-Not Applicable-not attempted and the patient did not perform the activity before the current illness, exacerbation or injury. 10-Not Attempted due to Environmental Limitations-(lack of equipment, weather restraints, etc.). 88-Not Attempted due to Medical Conditions or Safety Concerns. rolling and scooting in supine indep Exercises Supine Ex: Bridging, Ankle pumps, Quad Set, Rolling, Glut sets, Heel Slides, Short Arc Quads, Scooting, Straight leg raise, Hip abd/add Supine Reps: 15 Assessment Current Status: Good Progress fatigues quickly PT Short Term Goals Short Term Goals Time Frame: November 09, 2021 Roll Left & Right: 6 Sit to lyin Lying to sitting on side of be: 6 Sit to stand: 4 (SBA) Chair/hpv-yy-veneh transfer: 4 (SBA) Walk 10 feet: 4 (SBA) Walk 50 feet with two turns: 4 (SBA) Walk 150 feet: 4 (SBA) PT Retirement Goals Retirement Goals PT Primary Clinician Goals Time Frame: November 23, 2021 Roll Left & Right (QC): 6 Sit to Lying (QC): 6 Lying-Sitting on Side/Bed(QC): 6 Sit to Stand (QC): 6 Chair/Woi-up-Aojwo Xfer(QC): 6 Toilet Transfer (QC): 6 Car Transfer (QC): 6 Does the Patient Walk: Yes Walk 10 feet (QC): 6 Walk 50ft with 2 Turns (QC): 6 Walk 150 ft (QC): 6 Walking 10ft on Uneven Surface: 6 1 Step (curb) (QC): 6 4 Steps (QC): 6 12 Steps (QC): 88 Picking up an Object (QC): 6 Does the Pt use WC or Scooter?: No Wheel 50 feet with 2 turns (QC: 9 Type: N/A Wheel 150 feet: 9 Type: N/A PT Plan Treatment/Plan Treatment Plan: Continue Plan of Care Treatment Plan: Education, Functional Activity Pauly, Functional Strength, Group Therapy, Gait, Safety, Therapeutic Exercise, Transfers Treatment Duration: November 23, 2021 Frequency: At least 5 of 7 days/Wk (IRF) Estimated Hrs Per Day: 1.5 hours per day Patient and/or Family Agrees t: Yes Safety Risks/Education Patient Education: Correct Positioning Teaching Recipient: Patient Teaching Methods: Demonstration, Discussion Response to Teaching: Verbalize Understanding, Return Demonstration, Reinforcement Needed Time/GCodes Time In: 1245 Time Out: 1300 Total Billed Treatment Time: 15 Total Billed Treatment 1,EX15m ANANTH GAYTAN GRADES 9 12 TUTOR Nov 03, 2021 13:09
--- NOTE | 2021-11-03 13:18 | Consultation-Cardiology ---
HPI-Cardiology Cardiology Consultation: Date of Consultation 11/03/21 Time Seen by a Provider: 10:00 Date of Admission Attending Physician Tonja Rivers DO Admitting Physician Juan R Dodge DO Consulting Physician THOMAS SHAW MD, MA, FACP, FACC, FSCAI, CCDS HPI: Chief Complaint: CVA Ms. Yates is a 61 yr old female who has been admitted to [facility] following discharge from [facility]. She reports a long hospitalization at [place] with sepsis, pneumonia, DKA, renal failure and stroke. She states she continues to have some drooling from the left side of her mouth, left upper and lower extremity weakness. She reports the symptoms are improving. No c/o CP, SOB, palpitations, syncope, near syncope or LE swelling. She is up with PT at this time. Review of Systems-Cardiology Review of Systems Constitutional: No chills, No fever, No malaise Eyes: No vision change Ears/Nose/Throat: No epistaxis, No recent hearing loss Respiratory: As described under HPI Cardiovascular: As described under HPI Gastrointestinal: No constipation, No diarrhea, No nausea, No vomiting Genitourinary: No dysuria Musculoskeletal: no symptoms reported Skin: No rash on exposed areas, No ulcerations on exposed areas Psychiatric/Neurological: other (left upper and lower extremity weakness; left side facial droop) Hematologic: No bleeding abnormalities All Other Systems Reviewed Negative Unless Noted: Yes TLF-Nioqbv-Umwxho Hx Patient Social History Marrital Status: single Employed/Student: retired Smoking Status: Current Everyday Smoker 2nd Hand Smoke Exposure: No Have you traveled recently?: No Alcohol Use?: No Pt feels they are or have been: No Tobacco type used: Cigars Immunizations Up To Date Tetanus Booster (TDap): Unknown Date of Pneumonia Vaccine: Apr 02, 2013 Date of Influenza Vaccine: May 05, 2020 Past Medical History PMH As described under Assessment. Family Medical History Family Medical History: .Reported h/o father having CHF. Mother having CAD (onset before age 60), stroke and HTN Family History: Cancer G8 BROTHER, Onset:Unknown G8 BROTHER, Onset:Unknown Cancer of colon G8 BROTHER, Onset:Unknown Chest pain 19 MOTHER, Onset:Unknown Colon cancer Congestive heart failure 19 FATHER, Onset:60 years & older Family history: Alzheimer's disease 19 MOTHER, Onset:50's - 60 Family history: Arthritis 19 MOTHER, Onset:Unknown Family history: Asthma 19 FATHER, Onset:Unknown Family history: Cardiovascular disease 19 MOTHER, Onset:50 60 Family history: Coronary thrombosis 19 MOTHER, Onset:Unknown Family history: Diabetes mellitus 19 MOTHER, Onset:Unknown Family history: Hypertension 19 MOTHER, Onset:50 Family history: Thyroid disorder 19 MOTHER, Onset:50 Heart disease 19 MOTHER, Onset: Human immunodeficiency virus (HIV) seropositivity G8 BROTHER, Onset:40's - 50 Myocardial infarction 19 MOTHER, Onset:50 60 No Family History of: Abdominal aortic aneurysm Conejos's disease Alcoholism Aphasia Cataract Congenital heart disease Cystic fibrosis Dementia Dysphagia Family history: Allergy Family history: Breast disease Family history: Gastrointestinal disease Family history: Glaucoma Family history: Osteoporosis Headache Hearing loss Hereditary disease History of - anemia History of - disorder History of - respiratory disease History of drug abuse Hypercholesterolemia Infertile Kidney disease Malignant neoplasm of lung Parkinson's disease Prostate cancer Psychotic disorder Seizure disorder Stroke Tuberculosis Visual impairment Allergies and Home Medications Allergies Coded Allergies: ciprofloxacin (Verified Allergy, Mild, redness and itching , 12/04/18) redness and itching at iv site Patient Home Medication List Home Medication List Reviewed: Yes Albuterol Sulfate (Proair Hfa) 1 Puff Puff, 2 PUFF IH Q4H PRN for SHORTNESS OF BREATH, (Reported) Entered as Reported by: JUAN R PEDROZA on 11/02/21 1647 Last Action: Reviewed Apixaban (Eliquis) 5 Mg Tablet, 5 MG PO BID, (Reported) Entered as Reported by: JUAN R PEDROZA on 11/02/21 1647 Last Action: Reviewed Atorvastatin Calcium (Atorvastatin Calcium) 40 Mg Tablet, 40 MG PO HS, (Reported) Entered as Reported by: JUAN R PEDROZA on 11/09/20 1153 Last Action: Reviewed Calcitriol (Calcitriol) 0.25 Mcg Capsule, 0.25 MCG PO DAILY, (Reported) Entered as Reported by: ERROL DAVIS on 07/30/21 0331 Last Action: Reviewed Clopidogrel Bisulfate (Clopidogrel) 75 Mg Tablet, 75 MG PO DAILY, (Reported) Entered as Reported by: JUAN R PEDROZA on 09/03/20 9133 Last Action: Reviewed Diltiazem HCl (Diltiazem 24Hr ER) 240 Mg Cap.er.24h, 240 MG PO DAILY, (Reported) Entered as Reported by: JUAN R PEDROZA on 11/02/211646 Last Action: Reviewed Fluticasone/Umeclidin/Vilanter (Trelegy Ellipta 100-62.5-25) 1 Each Blst.w.dev, 1 EACH IH DAILY, (Reported) Entered as Reported by: ERROL DAVIS on 07/30/21330 Last Action: Reviewed Folic Acid (Folic Acid) 1 Mg Tablet, 1 MG PO DAILY, (Reported) Entered as Reported by: JUAN R PEDROZA on 11/02/211646 Last Action: Reviewed Gabapentin (Gabapentin) 100 Mg Capsule, 100 MG PO HS PRN for PAIN-BREAKTHROUGH, (Reported) Entered as Reported by: EFE PATTERSON on 12/20/15 1348 Last Action: Reviewed Insulin Aspart (Insulin Aspart) 100 Unit/1 Ml Vial, UNITS SC AC, (Reported) Entered as Reported by: JUAN R PEDROZA on 11/09/20 115 Last Action: Reviewed Insulin Determir (Levemir) 1,000 Units/10 Ml Soln, 14 UNITS SQ HS, (Reported) Entered as Reported by: JUAN R PEDROZA on 11/09/201152 Last Action: Reviewed Insulin Determir (Levemir) 100 Unit/Ml Soln, 16 UNITS SQ DAILY, (Reported) Entered as Reported by: JUAN R PEDROZA on 11/02/211646 Last Action: Reviewed Levothyroxine Sodium (Levothyroxine Sodium) 25 Mcg Tablet, 25 MCG PO DAILY, (Reported) Entered as Reported by: JUAN R PEDROZA on 11/02/211646 Last Action: Reviewed Levothyroxine Sodium (Levothyroxine Sodium) 200 Mcg Tablet, 200 MCG PO DAILY, (Reported) Entered as Reported by: JUAN R PEDROZA on 11/02/211646 Last Action: Reviewed Lisinopril (Lisinopril) 20 Mg Tablet, 10 MG PO HS, (Reported) Entered as Reported by: ERROL DAVIS on 07/30/21330 Last Action: Reviewed Meclizine HCl (Meclizine HCl) 12.5 Mg Tablet, 12.5 MG PO Q6H PRN for DIZZINESS, (Reported) Entered as Reported by: JUAN R PEDROZA on 11/02/21 1647 Last Action: Reviewed Montelukast Sodium (Montelukast Sodium) 10 Mg Tablet, 10 MG PO HS, (Reported) Entered as Reported by: ERROL DAVIS on 07/30/21330 Last Action: Reviewed Pantoprazole Sodium (Pantoprazole Sodium) 40 Mg Tablet.dr, 40 MG PO BID, (Reported) Entered as Reported by: JUAN R PEDROZA on 11/09/20 1153 Last Action: Reviewed Paroxetine HCl (Paroxetine HCl) 40 Mg Tablet, 40 MG PO DAILY, (Reported) Entered as Reported by: LUIS TOWNSEND on 11/30/15 1408 Last Action: Reviewed Discontinued Medications Albuterol Sulfate (Proair Respiclick) 90 Mcg Aer.pow.ba, 90 MCG INH Q4H PRN for WHEEZING, (Reported) Discontinued Reason: Duplicate Order Entered as Reported by: ERROL DAVIS on 07/30/21330 Last Action: Discontinued Amlodipine Besylate (Amlodipine Besylate) 5 Mg Tablet, 5 MG PO DAILY, (Reported) Discontinued Reason: No Longer Taking Entered as Reported by: ERROL DAVIS on 07/30/21330 Last Action: Discontinued Apixaban (Eliquis) 2.5 Mg Tablet, 2.5 MG PO BID Discontinued Reason: No Longer Taking Prescribed by: TONJA RIVERS on 07/30/21 1229 Last Action: Discontinued Aspirin (Aspirin) 81 Mg Tab.chew, 81 MG PO DAILY, (Reported) Discontinued Reason: No Longer Taking Entered as Reported by: TALAT CASTELLANOS on 12/04/18 1404 Last Action: Discontinued Buspirone HCl (Buspirone HCl) 5 Mg Tablet, 5 MG PO BID, (Reported) Discontinued Reason: No Longer Taking Entered as Reported by: EFE PATTERSON on 12/20/15 1348 Last Action: Discontinued Diltiazem HCl (Diltiazem 24Hr ER) 240 Mg Cap.er.24h, 240 MG PO DAILY Discontinued Reason: Duplicate Order Prescribed by: TONJA RIVERS on 10/15/21 1157 Last Action: Discontinued Docusate Sodium (Colace) 100 Mg Capsule, 100 MG PO DAILY PRN for CONSTIPATION- 1ST LINE, (Reported) Discontinued Reason: No Longer Taking Entered as Reported by: JUAN R PEDROZA on 11/09/20 1153 Last Action: Discontinued Hydrocodone/Acetaminophen (Hydrocodone-Acetamin 5-325 mg) 1 Each Tablet, 5-325 MG PO Q6H PRN for PAIN-BREAKTHROUGH, (Reported) Discontinued Reason: No Longer Taking Entered as Reported by: ERROL DAVIS on 07/30/21 033 Last Action: Discontinued Hyoscyamine Sulfate (Hyoscyamine Sulfate) 0.125 Mg Tab.subl, 0.125 MG SL Q4H PRN for SPASMS Discontinued Reason: No Longer Taking Prescribed by: DAWSON DEL ROSARIO on 11/12/20 1020 Last Action: Discontinued Levothyroxine Sodium (Euthyrox) 175 Mcg Tablet, 175 MCG PO DAILY, (Reported) Discontinued Reason: No Longer Taking Entered as Reported by: JUAN R PEDROZA on 09/03/20 1559 Last Action: Discontinued Meclizine HCl (Meclizine HCl) 12.5 Mg Tablet, 12.5 MG PO Q6H PRN for DIZZINESS Discontinued Reason: Duplicate Order Prescribed by: TONJA RIVERS on 10/15/21 1157 Last Action: Discontinued Promethazine HCl (Promethazine Tablet) 25 Mg Tablet, 25 MG PO Q8H PRN for NAUSEA/VOMITING, (Reported) Discontinued Reason: No Longer Taking Entered as Reported by: ERROL DAVIS on 07/30/21330 Last Action: Discontinued Physical Exam-Cardiology Physical Exam Vital Signs/I&O 11/03/21 11/03/21 11/03/21 06:46 07:48 09:00 Temp 37.1 Pulse 99 Resp 16 B/P (MAP) 144/66 (92) Pulse Ox 94 99 O2 Delivery Room Air Room Air Room Air Capillary Refill : Constitutional: AAO x 3, well-developed, other (thin) HEENT: PERRL, hearing is well preserved, oral hygience is good Neck: No carotid bruit; carotid pulses are 2 + bilaterally Respiratory: No accessory muscle use, No respiratory distress; chest expansion is symmetric, chest is bilaterally symmetric, lungs clear to auscultation Cardiovascular: regular rate-rhythm; No JVD; S1 and S2, systolic murmur Gastrointestinal: No tender; soft, round, audible bowel sounds Extremities: no lower extremity edema bilateral Neurologic/Psychiatric: other (RUE and RLE 5/5; LUE and LLE 4/5) Skin: No rash on exposed areas, No ulcerations on exposed areas Data Review Labs Laboratory Tests 11/02/21 14:52: White Blood Count 12.2H, Red Blood Count 3.56L, Hemoglobin 9.8L, Hematocrit 31L, Mean Corpuscular Volume 88, Mean Corpuscular Hemoglobin 28, Mean Corpuscular Hemoglobin Concent 31L, Red Cell Distribution Width 15.9H, Platelet Count 581H, Mean Platelet Volume 8.9L, Immature Granulocyte % (Auto) 1, Neutrophils (%) (Auto) 65, Lymphocytes (%) (Auto) 23, Monocytes (%) (Auto) 7, Eosinophils (%) (Auto) 3, Basophils (%) (Auto) 1, Neutrophils # (Auto) 8.0H, Lymphocytes # (Auto) 2.8, Monocytes # (Auto) 0.9, Eosinophils # (Auto) 0.4H, Basophils # (Auto) 0.1, Immature Granulocyte # (Auto) 0.2H, Sodium Level 141, Potassium Level 4.0, Chloride Level 107, Carbon Dioxide Level 23, Anion Gap 11, Blood Urea Nitrogen 29H, Creatinine 1.77H, Estimat Glomerular Filtration Rate 33, BUN/Creatinine Ratio 16, Glucose Level 52*L, Calcium Level 7.9L, Corrected Calcium 8.8, Total Bilirubin 0.2, Aspartate Amino Transf (AST/SGOT) 11, Alanine Aminotransferase (ALT/SGPT) 18, Alkaline Phosphatase 149H, Total Protein 6.3L, Albumin 2.9L 11/02/21 15:02: Glucometer 49*L 11/02/21 15:58: Glucometer 80 11/03/21 05:15: White Blood Count 9.2, Red Blood Count 3.11L, Hemoglobin 8.6L, Hematocrit 27L, Mean Corpuscular Volume 88, Mean Corpuscular Hemoglobin 28, Mean Corpuscular Hemoglobin Concent 32, Red Cell Distribution Width 15.9H, Platelet Count 526H, Mean Platelet Volume 8.9L, Immature Granulocyte % (Auto) 2, Neutrophils (%) (Auto) 64, Lymphocytes (%) (Auto) 23, Monocytes (%) (Auto) 9, Eosinophils (%) (Auto) 3, Basophils (%) (Auto) 0, Neutrophils # (Auto) 5.9, Lymphocytes # (Auto) 2.1, Monocytes # (Auto) 0.8, Eosinophils # (Auto) 0.3, Basophils # (Auto) 0.0, Immature Granulocyte # (Auto) 0.1, Sodium Level 140, Potassium Level 4.8, Chloride Level 109H, Carbon Dioxide Level 20L, Anion Gap 11, Blood Urea Nitrogen 34H, Creatinine 1.75H, Estimat Glomerular Filtration Rate 33, BUN/Creatinine Ratio 19, Glucose Level 181H, Calcium Level 7.4L, Corrected Calcium 8.8, Total Bilirubin 0.1, Aspartate Amino Transf (AST/SGOT) 10, Alanine Aminotransferase (ALT/SGPT) 9, Alkaline Phosphatase 113, Total Protein 4.9L, Albumin 2.3L 11/03/21 11:38: Glucometer 323H A/P-Cardiology Assessment/Admission Diagnosis Recent hospitalization at [facility] d/t sepsis, DKA and renal failure CVA - Acute to subacute, 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 Crenshaw's note of 10-29-21 ([facility]) - Residual LUE, LLE weakness and left sided facial droop PAF - Eliquis 5mg BID CAD, s/p CABG - Cardiac cath of 12-28-15 showed severe MVD, LVEF 60%, elevated LVEDP. CABG x 4 on 12-30-[address] Doherty at [facility]: 1. PAUL to LAD, reverse saphenous vein graft to OM2, sequential to RPDA and reverse saphenous vein graft to diagonal 2. Excision of the aortic cusp fibroelastoma - MPI of 03-15-21: no evidence of significant ischemia or infarction, LVEF 60% - Echo of 03-08-21 showed mod concentric hypertrophy. LVEF 70-75%. No regional wall motion abnormalities. Grade 2 diastolic dysfunction. Mitral valve annulus mild to mod calcified with mild to mod regurg. Mild AoV stenosis. Mod TR. PASP 50-55mmHg Right CEA on 12-30-15 at the time of CABG by Dr. Doherty - carotid u/s of Jul 2018 showed mild carotid arterial disease PAD and claudication (L>R) - S/p 7x60 mm stenting of the R common iliac (post-dilated with an 8 mm balloon) on 08/15/16 that has resulted in resolution of R leg claudication. There is two- vessel runoff in the legs with mod to severe diffuse disease - Seg pressures of September 2020: mod obstructive PAD of the R lower limb and severe distal disease of the L lower limb - Arterial doppler of 10-28-21 at [facility] showed mild to mod diffuse bilat leg calcified plaque with no acute occlusion or high-grade stenosis. The left leg arteri GI - S/P cholecystectomy COPD - managed by PCP Tobacco use (1PPD) -cessation is advised DM I - complicated by CKD 3 CKD 3 - followed by PCP who has referred her to Nephrology in [place] (Feb 2021) Hyperlipidemia - treated with atorvastatin (Dr Sanchez following blood work) Hypertension - with evidence of LVH on ECG Palpitations - Zio monitor of 06-18-17 to 07-02-17 showed very brief episodes of SVT with the fastest lasting 7 beats at 214 bpm - PAF diagnosed on an ER visit of 07/29/21 Discussion and Recomendations Continue current medication regimen Monitor lab from time to time Replace electrolytes as indicated Further recs will be based on her hospital course We would like to thank medical services for this consult THOMAS SHAW MD FACP FACC CCDS Nov 03, 2021 13:18
[2021-11-03 20:00] VITALS: BP 132/63
[2021-11-03] MEDS ORDERED: RT-ALBUTEROL SULF 2.5 MG/3 ML PRE-MIX VIAL IH PRN (20:30)
[2021-11-03] MEDS ORDERED: GABAPENTIN 100 MG (NEURONTIN) CAP PO PRN (20:30)
[2021-11-03] MEDS: MELATONIN 3 MG TABLET PO PRN (20:41)
[2021-11-03] MEDS ORDERED: inSUlin (REGULAR) HUMAN 1 UNIT/0.01 ML (CHARGE PER UNIT) SC PRN (20:45)
[2021-11-03] MEDS ORDERED: lisINopril 10 MG (PRINIVIL) TABLET ONE (20:47)
[2021-11-03] MEDS ORDERED: PANTOPRAZOLE 40 MG (PROTONIX) TAB PO ONE (20:47)
[2021-11-03] MEDS ORDERED: lisINopril 20 MG (PRINIVIL) TABLET PO SCH (21:00)
[2021-11-03] MEDS ORDERED: PANTOPRAZOLE 40 MG (PROTONIX) TAB PO SCH (21:00)
[2021-11-03] MEDS ORDERED: MONTELUKAST 10 MG (SINGULAIR) TAB ONE (21:24)
[2021-11-03] MEDS: MONTELUKAST 10 MG (SINGULAIR) TAB PO SCH (21:28)
[2021-11-03] MEDS ORDERED: MECLIZINE 25 MG (ANTIVERT) TAB PO PRN (21:45)
[2021-11-04] MEDS ORDERED: PANTOPRAZOLE 40 MG (PROTONIX) TAB PO ONE (05:44)
--- NOTE | 2021-11-04 05:56 | PM&R Progress Note ---
Subjective HPI/CC On Admission Date Seen by Provider: Nov 04, 2021 Time Seen by Provider: 10:30 Subjective/Events-last exam 11/04/21: Patient doing better Sugars managed with insulin No pain reported other than chronic issue 11/03/2021: Patient doing really well today Working on stamina and strength Blood sugars very labile Patient with very brittle diabetes Restarted her long-acting insulin No pain reported except for chronic back pain Review of Systems General: Fatigue, Malaise Neurological: Weakness Objective Exam Vital Signs Vital Signs Date Time Temp Pulse Resp B/P (MAP) Pulse Ox O2 Delivery O2 Flow Rate FiO2 11/04/21 09:11 Room Air 11/04/21 07:32 37.3 92 16 140/65 (90) 97 Capillary Refill : General Appearance: No Apparent Distress, WD/WN, Chronically ill, Thin HEENT: PERRL/EOMI, Normal ENT Inspection, Pharynx Normal Neck: Full Range of Motion, Normal Inspection, Non Tender, Supple, Carotid Bruit Respiratory: Chest Non Tender, Lungs Clear, Normal Breath Sounds, No Accessory Muscle Use, No Respiratory Distress Cardiovascular: Regular Rate, Rhythm, No Edema, No Gallop, No JVD, No Murmur, Normal Peripheral Pulses Gastrointestinal: Normal Bowel Sounds, No Organomegaly, No Pulsatile Mass, Non Tender, Soft Back: Normal Inspection, No CVA Tenderness, No Vertebral Tenderness Extremity: Normal Capillary Refill, Normal Inspection, Normal Range of Motion, Non Tender, No Calf Tenderness, No Pedal Edema Neurologic/Psychiatric: Alert, Oriented x3, shipping support II-XII Norm as Tested, Abnormal Gait, Depressed Affect, Motor Weakness (Generalized) Skin: Normal Color, Warm/Dry Lymphatic: No Adenopathy Results/Procedures Lab Patient resulted labs reviewed. FIM Transfers Therapy Code Descriptions/Definitions Functional Gem Measure: 0=Not Assessed/NA 4=Minimal Assistance 1=Total Assistance 5=Supervision or Setup 2=Maximal Assistance 6=Modified Gem 3=Moderate Assistance 7=Complete IndependenceSCALE: Activities may be completed with or without assistive devices. 2-Scnxyyodvm-ujtlscd completes the activity by him/herself with no assistance f rom a helper. 5-Set-up or Clean-up Assistance-helper sets up or cleans up; patient completes activity. [place] assists only prior to or following the activity. 4-Supervision or Touching Assistance-helper provides verbal cues and/or touching/steadying and/or contact guard assistance as patient completes activity. Assistance may be provided throughout the activity or intermittently. 3-Partial/Moderate Assistance-helper does LESS THAN HALF the effort. [place] lifts, holds or supports trunk or limbs, but provides less than half the effort. 2-Substantial/Maximal Assistance-helper does MORE THAN HALF the effort. [place] lifts or holds trunk or limbs and provides more than half the effort. 0-Jczttcgqk-mfeghc does ALL the effort. Patient does none of the effort to complete the activity. Or, the assistance of 2 or more helpers is required for the patient to complete the activity. If activity was not attempted, code reason: 7-Patient Refused. 9-Not Applicable-not attempted and the patient did not perform the activity before the current illness, exacerbation or injury. 10-Not Attempted due to Environmental Limitations-(lack of equipment, weather restraints, etc.). 88-Not Attempted due to Medical Conditions or Safety Concerns. Roll Left to Right (QC): 6 Sit to Lying (QC): 6 Sit to Stand (QC): 6 Chair/Pjh-qe-Xkvez Xfer(QC): 4 Car Transfer (QC): 4 (CGA) Gait Training Does the Patient Walk?: Yes Walk 10 feet (QC): 4 Walk 50 ft with 2 Turns(QC): 4 Walk 150 ft (QC): 4 Walking 10ft/uneven surface-QC: 4 (CGA) Gait Persons Needed: 1 Gait Assistive Device: Walker 4 Wheeled Wheelchair Training Does the Pt Use a Wheelchair?: No Wheel 50 ft with 2 turns (QC): 9 Wheel 150 ft (QC): 9 Stair Training 1 Step (curb) (QC): 4 (CGA) 4 Steps (QC): 4 (CGA) 12 Steps (QC): 88 Balance Picking up an Object (QC): 4 (CGA with day care provider) ADL-Treatment Eating (QC): 6 Oral Hygiene (QC): 4 (supervision for balance) Shower/Bathe Self (QC): 4 Upper Body Dressing (QC): 5 Lower Body Dressing (QC): 4 On/Off Footwear (QC): 5 Toileting Hygiene (QC): 4 Toilet Transfer (QC): 4 Assessment/Plan Assessment and Plan Assess & Plan/Chief Complaint Assessment: 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 History of C. difficile Plan: Inpatient rehab protocol Supportive care Blood sugar monitoring Monitor kidney function 11/03/2021: Supportive care Monitor closely Blood sugar management 11/04/21: Monitor sugar Therapy (1) CVA (cerebral vascular accident) (2) Diabetes mellitus Status: Chronic (3) CAD (coronary artery disease) Status: Chronic (4) Hyperlipidemia Status: Chronic (5) PAD (peripheral artery disease) Status: Chronic (6) Diabetes mellitus, insulin dependent (IDDM), uncontrolled Status: Acute (7) ROSA (acute kidney injury) Status: Acute (8) COPD (chronic obstructive pulmonary disease) Status: Chronic (9) CKD (chronic kidney disease) stage 3, GFR 30-59 ml/min Status: Chronic (10) Coronary artery disease without angina pectoris (11) Primary hypertension (12) Mixed hyperlipidemia TONG MAGALLON DO Nov 04, 2021 05:56
[2021-11-04] MEDS: LEVOTHYROXINE 25 MCG (LEVOTHROID) TAB PO SCH (06:32)
[2021-11-04] MEDS: LEVOTHYROXINE 100 MCG (LEVOTHROID) TAB PO SCH (06:32)
[2021-11-04] MEDS: PANTOPRAZOLE 40 MG (PROTONIX) TAB PO SCH ×2 (06:33→16:41)
[2021-11-04] MEDS: inSUlin ASPART (NovoLOG) 1 UNIT/0.01 ML (CHARGE PER UNIT) SC SCH ×4 (06:34→22:46)
[2021-11-04] MEDS: HYDROcodone/APAP 5 MG/325 MG (LORTAB) TAB PO PRN ×3 (07:00→22:45)
[2021-11-04] MEDS: UMECLIDINIUM BROMIDE (INCRUSE ELLIPTA) 7'S IH SCH (07:17)
[2021-11-04] MEDS: RT--FLUTICASONE/SALMETEROL 232-14 (AIRDUO RespiCLICK) IH SCH ×2 (07:17→21:14)
[2021-11-04 07:32] VITALS: BP 140/65
[2021-11-04] MEDS: NICOTINE 21 MG (NICODERM) PATCH TD SCH (07:39)
[2021-11-04] MEDS: NICOTINE PATCH REMOVAL TP SCH (07:40)
[2021-11-04] MEDS: FOLIC ACID 1 MG TAB PO SCH (07:40)
[2021-11-04] MEDS: DOCUSATE SODIUM 100 MG (COLACE) CAP PO SCH ×2 (07:40→21:53)
[2021-11-04] MEDS: APIXABAN 5 MG (ELIQUIS) TABLET PO SCH ×2 (07:40→22:45)
[2021-11-04] MEDS: SENNA W/DOCUSATE (SENOKOT S) TABLET PO SCH ×2 (07:40→21:53)
[2021-11-04] MEDS: CLOPIDOGREL 75 MG (PLAVIX) TABLET PO SCH (07:41)
[2021-11-04] MEDS: PARoxetine 20 MG (PAXIL) TAB PO SCH (07:54)
[2021-11-04] MEDS: CALCITRIOL 0.25 MCG (ROCALTROL) CAPSULE PO SCH (07:54)
--- NOTE | 2021-11-04 08:19 | Occupational Ther Daily Note ---
OT Current Status-Daily Note Subjective Pt up ad caroline returning from bathroom at OT arrival. Education on fall prevention/safety policy. Appearance Pt left sitting in recliner, all needs within reach. Mental Status/Objective Patient Orientation: Person, Place, Situation ADL-Treatment Therapy Code Descriptions/Definitions Functional [place] Measure: 0=Not Assessed/NA 4=Minimal Assistance 1=Total Assistance 5=Supervision or Setup 2=Maximal Assistance 6=Modified [place] 3=Moderate Assistance 7=Complete IndependenceSCALE: Activities may be completed with or without assistive devices. 0-Waclyiqnhl-pzwydqd completes the activity by him/herself with no assistance from a helper. 5-Set-up or Clean-up Assistance-helper sets up or cleans up; patient completes activity. [place] assists only prior to or following the activity. 4-Supervision or Touching Assistance-helper provides verbal cues and/or touching/steadying and/or contact guard assistance as patient completes activity. Assistance may be provided throughout the activity or intermittently. 3-Partial/Moderate Assistance-helper does LESS THAN HALF the effort. [place] lifts, holds or supports trunk or limbs, but provides less than half the effort. 2-Substantial/Maximal Assistance-helper does MORE THAN HALF the effort. [place] lifts or holds trunk or limbs and provides more than half the effort. 0-Kbanipsno-mndwkl does ALL the effort. Patient does none of the effort to complete the activity. Or, the assistance of 2 or more helpers is required for the patient to complete the activity. If activity was not attempted, code reason: 7-Patient Refused. 9-Not Applicable-not attempted and the patient did not perform the activity before the current illness, exacerbation or injury. 10-Not Attempted due to Environmental Limitations-(lack of equipment, weather restraints, etc.). 88-Not Attempted due to Medical Conditions or Safety Concerns. Eating (QC): 6 Oral Hygiene (QC): 6 Upper Body Dressing (QC): 6 Lower Body Dressing (QC): 6 On/Off Footwear: 6 Toileting Hygiene (QC): 6 Toilet Transfer (QC): 6 Pt retrieved clothing with use of 4ww. She sat to don, no assistance required. Good use on energy conservation strategies taught in previous sessions. Discussion on practicing tub transfers later in day. Pt reports fear of getting in/out of tub as that is where she has had a fall. She states that one of her favorite things is sitting down in the tub in order to take a hot bath. Education and discussion on different types of DME that is available including tub lifts. Pt was informed that this would be an extra expense out of pocket if wanted in the future. Lengthy discussion on energy conservation and adaptive strategies to utilize during homemaking tasks, specifically laundry. Pt reports understanding. Other Treatment Pt stood at closet to organize/transfer clothing (10 items) from low<>high shelf x4. Education/demonstration on body mechanics as pt has tendency to flex trunk and keep legs straight. 1# wrist weights donned on BUE's for added strengthening component. Pt fatigues after ~3-4 minutes and requires a sitting rest break. Mild unsteadiness as fatigue increases. While at bathroom sink, pt cleaned mirror by washing off letters/numbers (in scattered pattern) in alphabetical/numerical order. Again, weights donned for UE strengthening. Pt able to reach overhead, mild unsteadiness observed. Intermittent single UE support on sink throughout task. Education OT Patient Education: Correct positioning, Energy conservation, Modified ADL techniques, Progress toward Goal/Update tx plan, Purpose of tx/functional activities, Rehab process, Safety issues Teaching Recipient: Patient Teaching Methods: Demonstration, Discussion Response to Teaching: Verbalize Understanding, Return Demonstration OT Short Term Goals Short Term Goals Time Frame: November 09, 2021 Eatin Oral hygiene: 5 Toileting hygiene: 4 Shower/bathe self: 4 Upper body dressin Lower body dressin Putting on/taking off footwear: 5 OT Pharmaceutical Sales Representative Goals Senior Care Goals Time Frame: November 14, 2021 Eating (QC): 6 Oral Hygiene (QC): 6 Toileting Hygiene (QC): 6 Shower/Bathe Self (QC): 6 Upper Body Dressing (QC): 6 Lower Body Dressing (QC): 6 On/Off Footwear (QC): 6 1=Demonstrate adherence to instructed precautions during ADL tasks. 2=Patient will verbalize/demonstrate understanding of assistive senia sander/modifications for ADL. 3=Patient will improve strength/tolerance for activity to enable patient to perform ADL's. OT Education/Plan Problem List/Assessment Assessment: Decreased Activ Tolerance, Decreased Safety Aware, Decreased UE Strength, Impaired Funct Balance, Impaired I ADL's, Impaired Self-Care Skills Discharge Recommendations Plan/Recommendations: Continue POC Therapy Discharge Recommendati: Post Acute OT (home health ) Treatment Plan/Plan of Care Treatment,Training & Education: Yes Patient would benefit from OT for education, treatment and training to promote independence in ADL's, mobility, safety and/or upper extremity function for ADL's. Plan of Care: ADL Retraining, Functional Mobility, Group Exercise/Act as Ind, UE Funct Exercise/Act Treatment Duration: November 14, 2021 Frequency: At least 5 of 7 days/Wk (IRF) Estimated Hrs Per Day: 1.5 hours per day (60-90 min/day ) Agreement: Yes Rehab Potential: Good Time/GCodes Start Time: 07:30 Stop Time: 08:15 Total Time Billed (hr/min): 45 Billed Treatment Time 1 visit ADL (20 min) FA x2 (25 min) Marnie Williamson OT Nov 04, 2021 08:19
[2021-11-04] MEDS: polyethylene glycoL POWDER 17 GM (MIRALAX) PACK PO SCH ×2 (08:33→21:53)
[2021-11-04] MEDS ORDERED: FOLIC ACID 1 MG TAB PO SCH (09:00)
--- NOTE | 2021-11-04 10:40 | Occupational Ther Daily Note ---
OT Current Status-Daily Note Subjective Pt agreeable to try tub transfers, reports anxiety about it pre activity. Appearance Pt left sitting in recliner, all needs within reach. ADL-Treatment Therapy Code Descriptions/Definitions Functional [place] Measure: 0=Not Assessed/NA 4=Minimal Assistance 1=Total Assistance 5=Supervision or Setup 2=Maximal Assistance 6=Modified [place] 3=Moderate Assistance 7=Complete IndependenceSCALE: Activities may be completed with or without assistive devices. 9-Bgyhvucald-rorovmg completes the activity by him/herself with no assistance from a helper. 5-Set-up or Clean-up Assistance-helper sets up or cleans up; patient completes activity. [place] assists only prior to or following the activity. 4-Supervision or Touching Assistance-helper provides verbal cues and/or touching/steadying and/or contact guard assistance as patient completes activity. Assistance may be provided throughout the activity or intermittently. 3-Partial/Moderate Assistance-helper does LESS THAN HALF the effort. [place] lifts, holds or supports trunk or limbs, but provides less than half the effort. 2-Substantial/Maximal Assistance-helper does MORE THAN HALF the effort. [place] lifts or holds trunk or limbs and provides more than half the effort. 5-Kxyuxudyg-lnzsmp does ALL the effort. Patient does none of the effort to complete the activity. Or, the assistance of 2 or more helpers is required for the patient to complete the activity. If activity was not attempted, code reason: 7-Patient Refused. 9-Not Applicable-not attempted and the patient did not perform the activity bef ore the current illness, exacerbation or injury. 10-Not Attempted due to Environmental Limitations-(lack of equipment, weather r estraints, etc.). 88-Not Attempted due to Medical Conditions or Safety Concerns. Other Treatment Pt reports fear of performing tub transfers. She states that at baseline, she stands and steps over tub. With standing method, pt requires min a for balance and extra effort, assist to lift RLE off side of tub. Post demonstration for sit method, pt verbalizes anxiety on transfer technique. Encouragement provided. With step by step verbal cues, pt was able to complete with CGA for safety/com fort. After first transfer, she states "wow, that was a lot better." She was able to complete transfer in/out of tub x3 with SBA, verbal cues only. Pt requests to practice more tub transfers next session in order to increase self confidence and independence with task. OT issued and instructed pt on yellow theraband exercises. Min verbal and tactile cues for proper form. She fatigues easily but able to perform all 10 reps in set before resting. Focus only on triceps and biceps this session. Education OT Patient Education: Correct positioning, Energy conservation, Exercise program, Modified ADL techniques, Progress toward Goal/Update tx plan, Purpose of tx/functional activities, Safety issues, Transfer techniques, Use of adapted equipment Teaching Recipient: Patient Teaching Methods: Demonstration, Discussion Response to Teaching: Verbalize Understanding, Return Demonstration, Reinforcement Needed OT Short Term Goals Short Term Goals Time Frame: November 09, 2021 Eatin Oral hygiene: 5 Toileting hygiene: 4 Shower/bathe self: 4 Upper body dressin Lower body dressin Putting on/taking off footwear: 5 OT Care Home Goals Electron Gun Assembler Goals Time Frame: November 14, 2021 Eating (QC): 6 Oral Hygiene (QC): 6 Toileting Hygiene (QC): 6 Shower/Bathe Self (QC): 6 Upper Body Dressing (QC): 6 Lower Body Dressing (QC): 6 On/Off Footwear (QC): 6 1=Demonstrate adherence to instructed precautions during ADL tasks. 2=Patient will verbalize/demonstrate understanding of assistive devices/modifications for ADL. 3=Patient will improve strength/tolerance for activity to enable patient to perform ADL's. OT Education/Plan Problem List/Assessment Assessment: Decreased Activ Tolerance, Decreased UE Strength, Impaired Funct Balance, Impaired I ADL's, Impaired Self-Care Skills Discharge Recommendations Plan/Recommendations: Continue POC Treatment Plan/Plan of Care Treatment,Training & Education: Yes Patient would benefit from OT for education, treatment and training to promote independence in ADL's, mobility, safety and/or upper extremity function for ADL's. Plan of Care: ADL Retraining, Functional Mobility, Group Exercise/Act as Ind, UE Funct Exercise/Act Treatment Duration: November 14, 2021 Frequency: At least 5 of 7 days/Wk (IRF) Estimated Hrs Per Day: 1.5 hours per day (60-90 min/day ) Agreement: Yes Rehab Potential: Good Time/GCodes Start Time: 10:00 Stop Time: 10:35 Total Time Billed (hr/min): 35 Billed Treatment Time 1 visit ADL (20 min) EX (15 min) Marnie Williamson OT Nov 04, 2021 10:40
[2021-11-04] MEDS ORDERED: BUSP5TAB59 PO (11:48)
--- NOTE | 2021-11-04 12:00 | Speech Therapy Daily Note ---
Speech Daily Progress Note Subjective Date Seen by Provider: Nov 04, 2021 Time Seen by Provider: 11:00 The patient was seated upright in her recliner, awake and alert upon entrance to her room by the clinician. The patient greeted the clinician appropriately and was agreeable to participation in the cognitive linguistic treatment session. Objective - Orientation: The patient was independently oriented to self, location, city, month, day of week, and year. The patient stated the date was one day following (). - Internal Memory Strategies: The patient and clinician discussed and practiced internal memory strategies including association, visualization, and repetition. The patient and clinician practiced each strategy with five single words. After practice, the patient was challenged to recall the single words following a five minute delay. Following a five minute delay, the patient recalled 5/5 single words (100% accuracy). Per patient, she enjoyed and will utilize the skill of association throughout her daily life. Assessment Assessment Current Status: Good Progress Treatment Plan Continue Plan of Care Speech Short Term Goals Short Term Goals Short Term Goals 1. The patient will demonstrate 90% accuracy with memory exercises, independently. Time Frame-STG: Five Days. Speech Snf Goals Water Resource Engineer Goals 1. The patient will demonstrate improved cognitive linguistic skills for safe discharge to the least restrictive environment. Time Frame: One Week. Speech-Plan Treatment Plan Speech Therapy Treatment Plan: Continue Plan of Care Treatment Duration: Nov 03, 2021 Frequency: Modified Program (IRF) Estimated Hrs Per Day: Other Rehab Potential: Good Safety Risks/Education Teaching Recipient: Patient Teaching Methods: Demonstration, Discussion Response to Teaching: Verbalize Understanding, Return Demonstration Education Topics Provided: Internal Memory Strategies Time Speech Therapy Time In: 11:00 Speech Therapy Time Out: 11:30 Total Billed Time: 30 Billed Treatment Time 1KARISHMA ELIZABETH ST Nov 04, 2021 12:00
--- NOTE | 2021-11-04 12:06 | Physical Therapy Daily Note ---
PT Daily Note-Current Subjective Pt. agrees to Rx. Initially pt. states she would really like to be up ad caroline about her room but after some discussion pt. realizes that b/c she has had falls and b/c of her occas dizziness it is best to call for assist. Pt. again describes her home situation and bathroom set up. Pain Location: No Pain Reported Appearance pts eye movement occas drifts, pt. also speaks somewhat slow and slurred at times Mental Status Patient Orientation: Normal For Age Transfers SCALE: Activities may be completed with or without assistive devices. 6-Qexkzsohrr-zarhaqd completes the activity by him/herself with no assistance from a helper. 5-Set-up or Clean-up Assistance-helper sets up or cleans up; patient completes activity. [place] assists only prior to or following the activity. 4-Supervision or Touching Assistance-helper provides verbal cues and/or touching/steadying and/or contact guard assistance as patient completes activity. Assistance may be provided throughout the activity or intermittently. 3-Partial/Moderate Assistance-helper does LESS THAN HALF the effort. [place] lifts, holds or supports trunk or limbs, but provides less than half the effort. 2-Substantial/Maximal Assistance-helper does MORE THAN HALF the effort. [place] lifts or holds trunk or limbs and provides more than half the effort. 3-Yxprmoffk-cazgqn does ALL the effort. Patient does none of the effort to complete the activity. Or, the assistance of 2 or more helpers is required for the patient to complete the activity. If activity was not attempted, code reason: 7-Patient Refused. 9-Not Applicable-not attempted and the patient did not perform the activity before the current illness, exacerbation or injury. 10-Not Attempted due to Environmental Limitations-(lack of equipment, weather restraints, etc.). 88-Not Attempted due to Medical Conditions or Safety Concerns. Roll Left & Right (QC): 6 Sit to Lying (QC): 6 Lying to Sitting/Side of Bed(Q: 6 Sit to Stand (QC): 6 Chair/Hcy-iu-Wssgr Xfer(QC): 6 Toilet Transfer (QC): 6 pt. needs arms on chairs for sit to stand and use of rails in bthrm to a ccomplish sit to stand indep Gait Training Does the Patient Walk?: Yes Walk 10 feet (QC): 4 Walk 50 ft with 2 Turns(QC): 4 Walk 150 ft (QC): 4 Gait Persons Needed: 1 Gait Assistive Device: FWW FWW was used today to get pt. comfortable with this device. Pt. has a bathroom that she has fallen in several times according to her and it is narrow and she has gone in without her 4WW b/c it would not fit. However the FWW will go through side ways. side stepping left and right practice simulating her bthrm with good results, pt. stepping with good use of device and no LOB Exercises Supine Ex: Ankle pumps, Quad Set, Rolling, Lower trunk rotation, Short Arc Quads, Hip abd/add Supine Reps: 15 Seated Therapy Exercises: Ankle pumps, Sit to stand, Long arc quads, Hip flexion Seated Reps: 15 Standing: Heel/toe raises, Marching Standing Reps: 10 Treatments above Rx as well as balance challenges in standing with no LOB Assessment Current Status: Good Progress PT Short Term Goals Short Term Goals Time Frame: November 09, 2021 Roll Left & Right: 6 Sit to lyin Lying to sitting on side of be: 6 Sit to stand: 4 (SBA) Chair/qlq-ky-jbnue transfer: 4 (SBA) Walk 10 feet: 4 (SBA) Walk 50 feet with two turns: 4 (SBA) Walk 150 feet: 4 (SBA) PT Preparole Counseling Aide Goals Fpc Goals PT Fpc Goals Time Frame: November 23, 2021 Roll Left & Right (QC): 6 Sit to Lying (QC): 6 Lying-Sitting on Side/Bed(QC): 6 Sit to Stand (QC): 6 Chair/Zgt-hg-Ctmkf Xfer(QC): 6 Toilet Transfer (QC): 6 Car Transfer (QC): 6 Does the Patient Walk: Yes Walk 10 feet (QC): 6 Walk 50ft with 2 Turns (QC): 6 Walk 150 ft (QC): 6 Walking 10ft on Uneven Surface: 6 1 Step (curb) (QC): 6 4 Steps (QC): 6 12 Steps (QC): 88 Picking up an Object (QC): 6 Does the Pt use WC or Scooter?: No Wheel 50 feet with 2 turns (QC: 9 Type: N/A Wheel 150 feet: 9 Type: N/A PT Plan Treatment/Plan Treatment Plan: Continue Plan of Care Treatment Plan: Education, Functional Activity Pauly, Functional Strength, Group Therapy, Gait, Safety, Therapeutic Exercise, Transfers Treatment Duration: Nov 03, 2021 Frequency: At least 5 of 7 days/Wk (IRF) Estimated Hrs Per Day: 1.5 hours per day Patient and/or Family Agrees t: Yes Safety Risks/Education Patient Education: Gait Training, Transfer Techniques, Correct Positioning, Disease Process, Safety Issues Teaching Recipient: Patient Teaching Methods: Demonstration, Discussion Response to Teaching: Verbalize Understanding, Return Demonstration, Reinforcement Needed Time/GCodes Time In: 900 (1115) Time Out: 1000 (1145) Total Billed Treatment Time: 90 Total Billed Treatment 1x2, GT40m,FA30m,EX20 ANANTH GAYTAN VESSEL CAPTAIN Nov 04, 2021 12:06
[2021-11-04 20:00] VITALS: BP 161/69
[2021-11-04] MEDS: lisINopril 10 MG (PRINIVIL) TABLET PO SCH (22:44)
[2021-11-04] MEDS: MONTELUKAST 10 MG (SINGULAIR) TAB PO SCH (22:45)
--- NOTE | 2021-11-05 06:10 | PM&R Progress Note ---
Subjective HPI/CC On Admission Date Seen by Provider: Nov 05, 2021 Time Seen by Provider: 09:30 Subjective/Events-last exam 11/05/2021: Had a rough night Blood sugars low so we will adjust Levemir 14 units at night to 7 units at night Very brittle diabetes which has been an ongoing issue Supportive care will continue 11/04/21: Patient doing better Sugars managed with insulin No pain reported other than chronic issue 11/03/2021: Patient doing really well today Working on stamina and strength Blood sugars very labile Patient with very brittle diabetes Restarted her long-acting insulin No pain reported except for chronic back pain Review of Systems General: Fatigue, Malaise Objective Exam Vital Signs Vital Signs Date Time Temp Pulse Resp B/P (MAP) Pulse Ox O2 Delivery O2 Flow Rate FiO2 11/05/21 09:19 Room Air 11/05/21 07:09 98 11/05/21 07:06 36.7 88 18 146/69 (94) Capillary Refill : General Appearance: No Apparent Distress, WD/WN, Chronically ill, Thin HEENT: PERRL/EOMI, Normal ENT Inspection, Pharynx Normal Neck: Full Range of Motion, Normal Inspection, Non Tender, Supple, Carotid Bruit Respiratory: Chest Non Tender, Lungs Clear, Normal Breath Sounds, No Accessory Muscle Use, No Respiratory Distress Cardiovascular: Regular Rate, Rhythm, No Edema, No Gallop, No JVD, No Murmur, Normal Peripheral Pulses Gastrointestinal: Normal Bowel Sounds, No Organomegaly, No Pulsatile Mass, Non Tender, Soft Back: Normal Inspection, No CVA Tenderness, No Vertebral Tenderness Extremity: Normal Capillary Refill, Normal Inspection, Normal Range of Motion, Non Tender, No Calf Tenderness, No Pedal Edema Neurologic/Psychiatric: Alert, Oriented x3, engraver machine II-XII Norm as Tested, Abnormal Gait, Depressed Affect, Motor Weakness (Generalized) Skin: Normal Color, Warm/Dry Lymphatic: No Adenopathy Results/Procedures Lab Patient resulted labs reviewed. FIM Transfers Therapy Code Descriptions/Definitions Functional [place] Measure: 0=Not Assessed/NA 4=Minimal Assistance 1=Total Assistance 5=Supervision or Setup 2=Maximal Assistance 6=Modified [place] 3=Moderate Assistance 7=Complete IndependenceSCALE: Activities may be completed with or without assistive devices. 7-Dlmymujsje-bwgjdty completes the activity by him/herself with no assistance from a helper. 5-Set-up or Clean-up Assistance-helper sets up or cleans up; patient completes activity. [place] assists only prior to or following the activity. 4-Supervision or Touching Assistance-helper provides verbal cues and/or touching/steadying and/or contact guard assistance as patient completes activity. Assistance may be provided throughout the activity or intermittently. 3-Partial/Moderate Assistance-helper does LESS THAN HALF the effort. [place] lifts, holds or supports trunk or limbs, but provides less than half the effort. 2-Substantial/Maximal Assistance-helper does MORE THAN HALF the effort. [place] lifts or holds trunk or limbs and provides more than half the effort. 9-Llaynyxdy-tmhtrw does ALL the effort. Patient does none of the effort to complete the activity. Or, the assistance of 2 or more helpers is required for the patient to complete the activity. If activity was not attempted, code reason: 7-Patient Refused. 9-Not Applicable-not attempted and the patient did not perform the activity before the current illness, exacerbation or injury. 10-Not Attempted due to Environmental Limitations-(lack of equipment, weather restraints, etc.). 88-Not Attempted due to Medical Conditions or Safety Concerns. Roll Left to Right (QC): 6 Sit to Lying (QC): 6 Sit to Stand (QC): 6 Chair/Vcj-to-Gbyuz Xfer(QC): 6 Car Transfer (QC): 4 (CGA) Gait Training Does the Patient Walk?: Yes Walk 10 feet (QC): 4 Walk 50 ft with 2 Turns(QC): 4 Walk 150 ft (QC): 4 Walking 10ft/uneven surface-QC: 4 (CGA) Gait Persons Needed: 1 Gait Assistive Device: FWW Wheelchair Training Does the Pt Use a Wheelchair?: No Wheel 50 ft with 2 turns (QC): 9 Wheel 150 ft (QC): 9 Stair Training 1 Step (curb) (QC): 4 (CGA) 4 Steps (QC): 4 (CGA) 12 Steps (QC): 88 Balance Picking up an Object (QC): 4 (CGA with olericulturist) ADL-Treatment Eating (QC): 6 Oral Hygiene (QC): 6 Shower/Bathe Self (QC): 4 Upper Body Dressing (QC): 6 Lower Body Dressing (QC): 6 On/Off Footwear (QC): 6 Toileting Hygiene (QC): 6 Toilet Transfer (QC): 6 Assessment/Plan Assessment and Plan Assess & Plan/Chief Complaint Assessment: 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 History of C. difficile Plan: Inpatient rehab protocol Supportive care Blood sugar monitoring Monitor kidney function 11/03/2021: Supportive care Monitor closely Blood sugar management 11/04/21: Monitor sugar Therapy 11/05/2021: Supportive care continue Decrease Levemir (1) CVA (cerebral vascular accident) (2) Diabetes mellitus Status: Chronic (3) CAD (coronary artery disease) Status: Chronic (4) Hyperlipidemia Status: Chronic (5) PAD (peripheral artery disease) Status: Chronic (6) Diabetes mellitus, insulin dependent (IDDM), uncontrolled Status: Acute (7) ROSA (acute kidney injury) Status: Acute (8) COPD (chronic obstructive pulmonary disease) Status: Chronic (9) CKD (chronic kidney disease) stage 3, GFR 30-59 ml/min Status: Chronic (10) Coronary artery disease without angina pectoris (11) Primary hypertension (12) Mixed hyperlipidemia TONG MAGALLON DO Nov 05, 2021 06:10
[2021-11-05] MEDS: LEVOTHYROXINE 25 MCG (LEVOTHROID) TAB PO SCH (06:11)
[2021-11-05] MEDS: LEVOTHYROXINE 100 MCG (LEVOTHROID) TAB PO SCH (06:11)
[2021-11-05] MEDS: PANTOPRAZOLE 40 MG (PROTONIX) TAB PO SCH ×2 (06:11→17:16)
[2021-11-05] MEDS: inSUlin ASPART (NovoLOG) 1 UNIT/0.01 ML (CHARGE PER UNIT) SC SCH ×4 (06:15→20:38)
[2021-11-05 07:06] VITALS: BP 146/69
[2021-11-05] MEDS: RT--FLUTICASONE/SALMETEROL 232-14 (AIRDUO RespiCLICK) IH SCH ×2 (07:09→20:22)
[2021-11-05] MEDS: UMECLIDINIUM BROMIDE (INCRUSE ELLIPTA) 7'S IH SCH (07:09)
[2021-11-05] MEDS: NICOTINE 21 MG (NICODERM) PATCH TD SCH (08:58)
[2021-11-05] MEDS: NICOTINE PATCH REMOVAL TP SCH (08:58)
[2021-11-05] MEDS: CLOPIDOGREL 75 MG (PLAVIX) TABLET PO SCH (08:59)
[2021-11-05] MEDS: APIXABAN 5 MG (ELIQUIS) TABLET PO SCH ×2 (08:59→20:38)
[2021-11-05] MEDS: HYDROcodone/APAP 5 MG/325 MG (LORTAB) TAB PO PRN (08:59)
[2021-11-05] MEDS: FOLIC ACID 1 MG TAB PO SCH (08:59)
[2021-11-05] MEDS: CALCITRIOL 0.25 MCG (ROCALTROL) CAPSULE PO SCH (08:59)
[2021-11-05] MEDS: DOCUSATE SODIUM 100 MG (COLACE) CAP PO SCH ×2 (08:59→21:00)
[2021-11-05] MEDS: PARoxetine 20 MG (PAXIL) TAB PO SCH (09:00)
[2021-11-05] MEDS: polyethylene glycoL POWDER 17 GM (MIRALAX) PACK PO SCH ×2 (09:16→21:00)
[2021-11-05] MEDS: SENNA W/DOCUSATE (SENOKOT S) TABLET PO SCH ×2 (09:16→21:00)
--- NOTE | 2021-11-05 10:12 | Physical Therapy Daily Note ---
PT Daily Note-Current Subjective Pt in recliner upon arrival and agrees to PT. Pt reports she is tired today but does not report pain. Mental Status Patient Orientation: Person, Place, Time, Situation Transfers SCALE: Activities may be completed with or without assistive devices. 9-Ixfcbhglid-ckamnuz completes the activity by him/herself with no assistance from a helper. 5-Set-up or Clean-up Assistance-helper sets up or cleans up; patient completes activity. [place] assists only prior to or following the activity. 4-Supervision or Touching Assistance-helper provides verbal cues and/or touching/steadying and/or contact guard assistance as patient completes activity. Assistance may be provided throughout the activity or intermittently. 3-Partial/Moderate Assistance-helper does LESS THAN HALF the effort. [place] lifts, holds or supports trunk or limbs, but provides less than half the effort. 2-Substantial/Maximal Assistance-helper does MORE THAN HALF the effort. [place] lifts or holds trunk or limbs and provides more than half the effort. 6-Mhxfmmhxr-qxkfam does ALL the effort. Patient does none of the effort to complete the activity. Or, the assistance of 2 or more helpers is required for the patient to complete the activity. If activity was not attempted, code reason: 7-Patient Refused. 9-Not Applicable-not attempted and the patient did not perform the activity before the current illness, exacerbation or injury. 10-Not Attempted due to Environmental Limitations-(lack of equipment, weather restraints, etc.). 88-Not Attempted due to Medical Conditions or Safety Concerns. Sit to Stand (QC): 5 Gait Training Does the Patient Walk?: Yes Distance: 150' x 1 Walk 10 feet (QC): 5 Walk 50 ft with 2 Turns(QC): 5 Walk 150 ft (QC): 4 Gait Assistive Device: Walker 4 Wheeled Exercises Seated Therapy Exercises: Ankle pumps, Sit to stand, Long arc quads, Hip flexion, Hamstring Curls, Hip abd/add Seated Reps: 20 Treatments Amb from room out into [place] 150' and then back to pts room and TFs back to recliner. Call light nearby and all needs met as PT departs. Assessment Current Status: Good Progress Pt requires skilled verbal cues for hand and foot placement during all TFs. PT Short Term Goals Short Term Goals Time Frame: November 09, 2021 Roll Left & Right: 6 Sit to lyin Lying to sitting on side of be: 6 Sit to stand: 4 (SBA) Chair/upf-vl-sletm transfer: 4 (SBA) Walk 10 feet: 4 (SBA) Walk 50 feet with two turns: 4 (SBA) Walk 150 feet: 4 (SBA) PT Motorcycle Fabricator Goals Group Home Goals PT Group Home Goals Time Frame: November 23, 2021 Roll Left & Right (QC): 6 Sit to Lying (QC): 6 Lying-Sitting on Side/Bed(QC): 6 Sit to Stand (QC): 6 Chair/Bcg-fn-Loxcp Xfer(QC): 6 Toilet Transfer (QC): 6 Car Transfer (QC): 6 Does the Patient Walk: Yes Walk 10 feet (QC): 6 Walk 50ft with 2 Turns (QC): 6 Walk 150 ft (QC): 6 Walking 10ft on Uneven Surface: 6 1 Step (curb) (QC): 6 4 Steps (QC): 6 12 Steps (QC): 88 Picking up an Object (QC): 6 Does the Pt use WC or Scooter?: No Wheel 50 feet with 2 turns (QC: 9 Type: N/A Wheel 150 feet: 9 Type: N/A PT Plan Problem List Problem List: Activity Tolerance, Functional Strength Treatment/Plan Treatment Plan: Continue Plan of Care Treatment Plan: Education, Functional Activity Pauly, Functional Strength, Group Therapy, Gait, Safety, Therapeutic Exercise, Transfers Treatment Duration: Nov 03, 2021 Frequency: At least 5 of 7 days/Wk (IRF) Estimated Hrs Per Day: 1.5 hours per day Patient and/or Family Agrees t: Yes Safety Risks/Education Patient Education: Transfer Techniques Teaching Recipient: Patient Teaching Methods: Discussion Response to Teaching: Return Demonstration Time/GCodes Time In: 815 Time Out: 830 Total Billed Treatment Time: 15 Total Billed Treatment 1, Ex 15min SAW ANGELO GRAPHICS INTERN Nov 05, 2021 10:12
[2021-11-05 19:53] VITALS: BP 140/82
[2021-11-05] MEDS: lisINopril 10 MG (PRINIVIL) TABLET PO SCH (20:38)
[2021-11-05] MEDS: MONTELUKAST 10 MG (SINGULAIR) TAB PO SCH (20:38)
[2021-11-06] MEDS: HYDROcodone/APAP 5 MG/325 MG (LORTAB) TAB PO PRN ×2 (01:02→20:57)
--- NOTE | 2021-11-06 06:32 | PM&R Progress Note ---
Subjective HPI/CC On Admission Date Seen by Provider: November 06, 2021 Time Seen by Provider: 13:15 Subjective/Events-last exam 11/06/2021: Patient doing better No pain reported Blood sugars labile Brittle diabetes Low sugar this morning so we will adjust Levemir 11/05/2021: Had a rough night Blood sugars low so we will adjust Levemir 14 units at night to 7 units at night Very brittle diabetes which has been an ongoing issue Supportive care will continue 11/04/21: Patient doing better Sugars managed with insulin No pain reported other than chronic issue 11/03/2021: Patient doing really well today Working on stamina and strength Blood sugars very labile Patient with very brittle diabetes Restarted her long-acting insulin No pain reported except for chronic back pain Review of Systems General: Fatigue, Malaise Objective Exam Vital Signs Vital Signs Date Time Temp Pulse Resp B/P (MAP) Pulse Ox O2 Delivery O2 Flow Rate FiO2 11/06/21 21:00 Room Air 11/06/21 19:56 37.4 81 18 136/63 (87) 97 Capillary Refill : General Appearance: No Apparent Distress, WD/WN, Chronically ill, Thin HEENT: PERRL/EOMI, Normal ENT Inspection, Pharynx Normal Neck: Full Range of Motion, Normal Inspection, Non Tender, Supple, Carotid Bruit Respiratory: Chest Non Tender, Lungs Clear, Normal Breath Sounds, No Accessory Muscle Use, No Respiratory Distress Cardiovascular: Regular Rate, Rhythm, No Edema, No Gallop, No JVD, No Murmur, Normal Peripheral Pulses Gastrointestinal: Normal Bowel Sounds, No Organomegaly, No Pulsatile Mass, Non Tender, Soft Back: Normal Inspection, No CVA Tenderness, No Vertebral Tenderness Extremity: Normal Capillary Refill, Normal Inspection, Normal Range of Motion, Non Tender, No Calf Tenderness, No Pedal Edema Neurologic/Psychiatric: Alert, Oriented x3, potato spotter II-XII Norm as Tested, Abnormal Gait, Depressed Affect, Motor Weakness (Generalized) Skin: Normal Color, Warm/Dry Lymphatic: No Adenopathy Results/Procedures Lab Patient resulted labs reviewed. FIM Transfers Therapy Code Descriptions/Definitions Functional [place] Measure: 0=Not Assessed/NA 4=Minimal Assistance 1=Total Assistance 5=Supervision or Setup 2=Maximal Assistance 6=Modified [place] 3=Moderate Assistance 7=Complete IndependenceSCALE: Activities may be completed with or without assistive devices. 4-Iozjfyngay-fwaxqpm completes the activity by him/herself with no assistance from a helper. 5-Set-up or Clean-up Assistance-helper sets up or cleans up; patient completes activity. [place] assists only prior to or following the activity. 4-Supervision or Touching Assistance-helper provides verbal cues and/or touching/steadying and/or contact guard assistance as patient completes activity. Assistance may be provided throughout the activity or intermittently. 3-Partial/Moderate Assistance-helper does LESS THAN HALF the effort. [place] lifts, holds or supports trunk or limbs, but provides less than half the effort. 2-Substantial/Maximal Assistance-helper does MORE THAN HALF the effort. [place] lifts or holds trunk or limbs and provides more than half the effort. 6-Ovpqkguej-xummma does ALL the effort. Patient does none of the effort to complete the activity. Or, the assistance of 2 or more helpers is required for the patient to complete the activity. If activity was not attempted, code reason: 7-Patient Refused. 9-Not Applicable-not attempted and the patient did not perform the activity before the current illness, exacerbation or injury. 10-Not Attempted due to Environmental Limitations-(lack of equipment, weather restraints, etc.). 88-Not Attempted due to Medical Conditions or Safety Concerns. Roll Left to Right (QC): 6 Sit to Lying (QC): 6 Sit to Stand (QC): 5 Chair/Ppr-pr-Biagl Xfer(QC): 6 Car Transfer (QC): 4 (CGA) Gait Training Does the Patient Walk?: Yes Distance: 150' x 1 Walk 10 feet (QC): 5 Walk 50 ft with 2 Turns(QC): 5 Walk 150 ft (QC): 4 Walking 10ft/uneven surface-QC: 4 (CGA) Gait Persons Needed: 1 Gait Assistive Device: Walker 4 Wheeled Wheelchair Training Does the Pt Use a Wheelchair?: No Wheel 50 ft with 2 turns (QC): 9 Wheel 150 ft (QC): 9 Stair Training 1 Step (curb) (QC): 4 (CGA) 4 Steps (QC): 4 (CGA) 12 Steps (QC): 88 Balance Picking up an Object (QC): 4 (CGA with sports writer) ADL-Treatment Eating (QC): 6 Oral Hygiene (QC): 6 Shower/Bathe Self (QC): 4 Upper Body Dressing (QC): 6 Lower Body Dressing (QC): 6 On/Off Footwear (QC): 6 Toileting Hygiene (QC): 6 Toilet Transfer (QC): 6 Assessment/Plan Assessment and Plan Assess & Plan/Chief Complaint Assessment: 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 History of C. difficile Plan: Inpatient rehab protocol Supportive care Blood sugar monitoring Monitor kidney function 11/03/2021: Supportive care Monitor closely Blood sugar management 11/04/21: Monitor sugar Therapy 11/05/2021: Supportive care continue Decrease Levemir 11/06/2021: Supportive care Monitor closely (1) CVA (cerebral vascular accident) (2) Diabetes mellitus Status: Chronic (3) CAD (coronary artery disease) Status: Chronic (4) Hyperlipidemia Status: Chronic (5) PAD (peripheral artery disease) Status: Chronic (6) Diabetes mellitus, insulin dependent (IDDM), uncontrolled Status: Acute (7) ROSA (acute kidney injury) Status: Acute (8) COPD (chronic obstructive pulmonary disease) Status: Chronic (9) CKD (chronic kidney disease) stage 3, GFR 30-59 ml/min Status: Chronic (10) Coronary artery disease without angina pectoris (11) Primary hypertension (12) Mixed hyperlipidemia TONG MAGALLON DO November 06, 2021 06:31
[2021-11-06] MEDS: inSUlin ASPART (NovoLOG) 1 UNIT/0.01 ML (CHARGE PER UNIT) SC SCH ×4 (06:38→20:58)
[2021-11-06] MEDS: PANTOPRAZOLE 40 MG (PROTONIX) TAB PO SCH ×2 (06:44→16:03)
[2021-11-06] MEDS: LEVOTHYROXINE 100 MCG (LEVOTHROID) TAB PO SCH (06:44)
[2021-11-06] MEDS: LEVOTHYROXINE 25 MCG (LEVOTHROID) TAB PO SCH (06:44)
[2021-11-06 07:00] VITALS: BP 149/65
[2021-11-06] MEDS: UMECLIDINIUM BROMIDE (INCRUSE ELLIPTA) 7'S IH SCH (07:31)
[2021-11-06] MEDS: RT--FLUTICASONE/SALMETEROL 232-14 (AIRDUO RespiCLICK) IH SCH ×2 (07:33→19:01)
[2021-11-06] MEDS: FOLIC ACID 1 MG TAB PO SCH (08:41)
[2021-11-06] MEDS: CALCITRIOL 0.25 MCG (ROCALTROL) CAPSULE PO SCH (08:41)
[2021-11-06] MEDS: NICOTINE 21 MG (NICODERM) PATCH TD SCH (08:41)
[2021-11-06] MEDS: PARoxetine 20 MG (PAXIL) TAB PO SCH (08:41)
[2021-11-06] MEDS: APIXABAN 5 MG (ELIQUIS) TABLET PO SCH ×2 (08:41→20:57)
[2021-11-06] MEDS: DOCUSATE SODIUM 100 MG (COLACE) CAP PO SCH ×2 (08:41→20:57)
[2021-11-06] MEDS: CLOPIDOGREL 75 MG (PLAVIX) TABLET PO SCH (08:41)
[2021-11-06] MEDS: NICOTINE PATCH REMOVAL TP SCH (08:41)
[2021-11-06] MEDS: SENNA W/DOCUSATE (SENOKOT S) TABLET PO SCH ×2 (09:57→21:01)
[2021-11-06] MEDS: polyethylene glycoL POWDER 17 GM (MIRALAX) PACK PO SCH ×2 (09:57→21:00)
[2021-11-06 19:56] VITALS: BP 136/63
[2021-11-06] MEDS: lisINopril 10 MG (PRINIVIL) TABLET PO SCH (20:57)
[2021-11-06] MEDS: MONTELUKAST 10 MG (SINGULAIR) TAB PO SCH (20:57)
[2021-11-07 05:54] LABS: BASOPHILS # (AUTO) 0.1 10^3/uL (0.0-0.1); BASOPHILS % (AUTO) 1 % (0-10); EOSINOPHILS # (AUTO) 0.2 10^3/uL (0.0-0.3); EOSINOPHILS % (AUTO) 2 % (0-10); HEMATOCRIT 30 % (35-52); HEMOGLOBIN 9.3 g/dL (11.5-16.0); LYMPHOCYTES # (AUTO) 2.4 10^3/uL (1.0-4.0); LYMPHOCYTES % (AUTO) 25 % (12-44); MEAN CORPUSCULAR HEMOGLOBIN 27 pg (25-34); MEAN CORPUSCULAR HGB CONC 31 g/dL (32-36); MEAN CORPUSCULAR VOLUME 88 fL (80-99); MEAN PLATELET VOLUME 8.9 fL (9.0-12.2); MONOCYTES # (AUTO) 0.7 10^3/uL (0.0-1.0); MONOCYTES % (AUTO) 7 % (0-12); NEUTROPHILS # (AUTO) 6.4 10^3/uL (1.8-7.8); NEUTROPHILS % (AUTO) 64 % (42-75); PLATELET COUNT 606 10^3/uL (130-400); WHITE BLOOD COUNT 9.9 10^3/uL (4.3-11.0)
[2021-11-07] MEDS: inSUlin ASPART (NovoLOG) 1 UNIT/0.01 ML (CHARGE PER UNIT) SC SCH ×4 (05:58→21:20)
[2021-11-07 06:08] LABS: ALBUMIN 2.6 GM/DL (3.2-4.5)
[2021-11-07 06:09] LABS: POTASSIUM 4.8 MMOL/L (3.6-5.0)
[2021-11-07 06:10] LABS: CALCIUM 8.2 MG/DL (8.5-10.1)
[2021-11-07 06:11] LABS: TOTAL PROTEIN 5.6 GM/DL (6.4-8.2)
[2021-11-07 06:13] LABS: BILIRUBIN,TOTAL 0.2 MG/DL (0.1-1.0)
[2021-11-07 06:15] LABS: CREATININE SERUM 1.45 MG/DL (0.60-1.30)
--- NOTE | 2021-11-07 06:21 | PM&R Progress Note ---
Subjective HPI/CC On Admission Date Seen by Provider: November 07, 2021 Time Seen by Provider: 11:00 Subjective/Events-last exam 11/07/2021: Patient doing well Blood sugars improved No falls Gaining strength 11/06/2021: Patient doing better No pain reported Blood sugars labile Brittle diabetes Low sugar this morning so we will adjust Levemir 11/05/2021: Had a rough night Blood sugars low so we will adjust Levemir 14 units at night to 7 units at night Very brittle diabetes which has been an ongoing issue Supportive care will continue 11/04/21: Patient doing better Sugars managed with insulin No pain reported other than chronic issue 11/03/2021: Patient doing really well today Working on stamina and strength Blood sugars very labile Patient with very brittle diabetes Restarted her long-acting insulin No pain reported except for chronic back pain Review of Systems General: Fatigue, Malaise Objective Exam Vital Signs Vital Signs Date Time Temp Pulse Resp B/P (MAP) Pulse Ox O2 Delivery O2 Flow Rate FiO2 11/07/21 09:00 Room Air 11/07/21 07:29 36.5 90 16 134/63 (86) 96 Capillary Refill : General Appearance: No Apparent Distress, WD/WN, Chronically ill, Thin HEENT: PERRL/EOMI, Normal ENT Inspection, Pharynx Normal Neck: Full Range of Motion, Normal Inspection, Non Tender, Supple, Carotid Bruit Respiratory: Chest Non Tender, Lungs Clear, Normal Breath Sounds, No Accessory Muscle Use, No Respiratory Distress Cardiovascular: Regular Rate, Rhythm, No Edema, No Gallop, No JVD, No Murmur, Normal Peripheral Pulses Gastrointestinal: Normal Bowel Sounds, No Organomegaly, No Pulsatile Mass, Non Tender, Soft Back: Normal Inspection, No CVA Tenderness, No Vertebral Tenderness Extremity: Normal Capillary Refill, Normal Inspection, Normal Range of Motion, Non Tender, No Calf Tenderness, No Pedal Edema Neurologic/Psychiatric: Alert, Oriented x3, stone polisher II-XII Norm as Tested, Abnormal Gait, Depressed Affect, Motor Weakness (Generalized) Skin: Normal Color, Warm/Dry Lymphatic: No Adenopathy Results/Procedures Lab Laboratory Tests 11/07/21 05:20 Patient resulted labs reviewed. FIM Transfers Therapy Code Descriptions/Definitions Functional [place] Measure: 0=Not Assessed/NA 4=Minimal Assistance 1=Total Assistance 5=Supervision or Setup 2=Maximal Assistance 6=Modified [place] 3=Moderate Assistance 7=Complete IndependenceSCALE: Activities may be completed with or without assistive devices. 0-Iejdkuheyf-mwgtixx completes the activity by him/herself with no assistance from a helper. 5-Set-up or Clean-up Assistance-helper sets up or cleans up; patient completes activity. [place] assists only prior to or following the activity. 4-Supervision or Touching Assistance-helper provides verbal cues and/or touching/steadying and/or contact guard assistance as patient completes activity . Assistance may be provided throughout the activity or intermittently. 3-Partial/Moderate Assistance-helper does LESS THAN HALF the effort. [place] lifts, holds or supports trunk or limbs, but provides less than half the effort. 2-Substantial/Maximal Assistance-helper does MORE THAN HALF the effort. [place] lifts or holds trunk or limbs and provides more than half the effort. 0-Wjgrtyatb-auhhsw does ALL the effort. Patient does none of the effort to complete the activity. Or, the assistance of 2 or more helpers is required for the patient to complete the activity. If activity was not attempted, code reason: 7-Patient Refused. 9-Not Applicable-not attempted and the patient did not perform the activity before the current illness, exacerbation or injury. 10-Not Attempted due to Environmental Limitations-(lack of equipment, weather restraints, etc.). 88-Not Attempted due to Medical Conditions or Safety Concerns. Roll Left to Right (QC): 6 Sit to Lying (QC): 6 Sit to Stand (QC): 5 Chair/Zwk-sp-Wwyhr Xfer(QC): 6 Car Transfer (QC): 4 (CGA) Gait Training Does the Patient Walk?: Yes Distance: 150' x 1 Walk 10 feet (QC): 5 Walk 50 ft with 2 Turns(QC): 5 Walk 150 ft (QC): 4 Walking 10ft/uneven surface-QC: 4 (CGA) Gait Persons Needed: 1 Gait Assistive Device: Walker 4 Wheeled Wheelchair Training Does the Pt Use a Wheelchair?: No Wheel 50 ft with 2 turns (QC): 9 Wheel 150 ft (QC): 9 Stair Training 1 Step (curb) (QC): 4 (CGA) 4 Steps (QC): 4 (CGA) 12 Steps (QC): 88 Balance Picking up an Object (QC): 4 (CGA with pad making machine operator) ADL-Treatment Eating (QC): 6 Oral Hygiene (QC): 6 Shower/Bathe Self (QC): 4 Upper Body Dressing (QC): 6 Lower Body Dressing (QC): 6 On/Off Footwear (QC): 6 Toileting Hygiene (QC): 6 Toilet Transfer (QC): 6 Assessment/Plan Assessment and Plan Assess & Plan/Chief Complaint Assessment: 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 History of C. difficile Plan: Inpatient rehab protocol Supportive care Blood sugar monitoring Monitor kidney function 11/03/2021: Supportive care Monitor closely Blood sugar management 11/04/21: Monitor sugar Therapy 11/05/2021: Supportive care continue Decrease Levemir 11/06/2021: Supportive care Monitor closely 11/07/2021: Supportive care Monitor closely (1) CVA (cerebral vascular accident) (2) Diabetes mellitus Status: Chronic (3) CAD (coronary artery disease) Status: Chronic (4) Hyperlipidemia Status: Chronic (5) PAD (peripheral artery disease) Status: Chronic (6) Diabetes mellitus, insulin dependent (IDDM), uncontrolled Status: Acute (7) ROSA (acute kidney injury) Status: Acute (8) COPD (chronic obstructive pulmonary disease) Status: Chronic (9) CKD (chronic kidney disease) stage 3, GFR 30-59 ml/min Status: Chronic (10) Coronary artery disease without angina pectoris (11) Primary hypertension (12) Mixed hyperlipidemia TONG MAGALLON DO November 07, 2021 06:21
[2021-11-07] MEDS: PANTOPRAZOLE 40 MG (PROTONIX) TAB PO SCH ×2 (06:31→16:44)
[2021-11-07] MEDS: LEVOTHYROXINE 100 MCG (LEVOTHROID) TAB PO SCH (06:31)
[2021-11-07] MEDS: LEVOTHYROXINE 25 MCG (LEVOTHROID) TAB PO SCH (06:31)
[2021-11-07] MEDS: UMECLIDINIUM BROMIDE (INCRUSE ELLIPTA) 7'S IH SCH (07:13)
[2021-11-07] MEDS: RT--FLUTICASONE/SALMETEROL 232-14 (AIRDUO RespiCLICK) IH SCH ×2 (07:13→18:56)
[2021-11-07 07:29] VITALS: BP 134/63
[2021-11-07] MEDS: CLOPIDOGREL 75 MG (PLAVIX) TABLET PO SCH (07:55)
[2021-11-07] MEDS: APIXABAN 5 MG (ELIQUIS) TABLET PO SCH ×2 (07:55→21:19)
[2021-11-07] MEDS: PARoxetine 20 MG (PAXIL) TAB PO SCH (07:55)
[2021-11-07] MEDS: FOLIC ACID 1 MG TAB PO SCH (07:56)
[2021-11-07] MEDS: CALCITRIOL 0.25 MCG (ROCALTROL) CAPSULE PO SCH (07:56)
[2021-11-07] MEDS: NICOTINE 21 MG (NICODERM) PATCH TD SCH (07:57)
[2021-11-07] MEDS: SENNA W/DOCUSATE (SENOKOT S) TABLET PO SCH ×2 (08:00→20:48)
[2021-11-07] MEDS: NICOTINE PATCH REMOVAL TP SCH (08:00)
[2021-11-07] MEDS: DOCUSATE SODIUM 100 MG (COLACE) CAP PO SCH ×2 (08:00→21:19)
[2021-11-07] MEDS: polyethylene glycoL POWDER 17 GM (MIRALAX) PACK PO SCH ×2 (08:00→20:47)
--- NOTE | 2021-11-07 09:03 | Physical Therapy Daily Note ---
PT Daily Note-Current Subjective Upon arrival pt was seated in recliner, RN was present. Pt agrees to PT. Pain Comment: Pt states no pain at this time. Mental Status Patient Orientation: Person, Place, Time, Situation, Normal For Age Transfers SCALE: Activities may be completed with or without assistive devices. 8-Rmbncfrfkx-kpoivdq completes the activity by him/herself with no assistance from a helper. 5-Set-up or Clean-up Assistance-helper sets up or cleans up; patient completes activity. [place] assists only prior to or following the activity. 4-Supervision or Touching Assistance-helper provides verbal cues and/or touching/steadying and/or contact guard assistance as patient completes activity. Assistance may be provided throughout the activity or intermittently. 3-Partial/Moderate Assistance-helper does LESS THAN HALF the effort. [place] lifts, holds or supports trunk or limbs, but provides less than half the effort. 2-Substantial/Maximal Assistance-helper does MORE THAN HALF the effort. [place] lifts or holds trunk or limbs and provides more than half the effort. 1-Agoxmcmiz-ccusdr does ALL the effort. Patient does none of the effort to complete the activity. Or, the assistance of 2 or more helpers is required for the patient to complete the activity. If activity was not attempted, code reason: 7-Patient Refused. 9-Not Applicable-not attempted and the patient did not perform the activity before the current illness, exacerbation or injury. 10-Not Attempted due to Environmental Limitations-(lack of equipment, weather restraints, etc.). 88-Not Attempted due to Medical Conditions or Safety Concerns. Sit to Stand (QC): 4 Gait Training Does the Patient Walk?: Yes Distance: 400' Walk 10 feet (QC): 4 Walk 50 ft with 2 Turns(QC): 4 Walk 150 ft (QC): 4 Gait Persons Needed: 1 Gait Assistive Device: Walker 4 Wheeled Pt requests to ambulate with 4 wheeled walker, states that is what she would use at home. Pt had slow, reciprocal GT pattern. Pt demonstrated no LOB, pt had good control and was balanced with walker. Pt states that she would like to work up to walking with a cane. Wheelchair Training Does the Pt Use a Wheelchair?: No Exercises Seated Therapy Exercises: Ankle pumps, Long arc quads, Hip flexion, Hip abd/add Seated Reps: 15 NuStep Minutes: 10 NuStep Workload: 3 Neuromuscular Pt performed and completed balance EXs at // bars. Pt performed wide/narrow static standing balance. Narrow static standing balance with head turns. Pt performed tandem static standing balance. All competed 2x 30secs each. Pt ambulated through // bars without holding on to bars 3 times. Pt was CGA. Pt demonstrated Min LOB, and would have to grab hold of bars. Pt needed VC to maintain good posture during balance EXs. Treatments Pt performed and completed all seated EXs as listed above. Pt ambulated 400' with 4 wheeled walker around lobby and down the halls. Pt required rest breaks during ambulation. Pt then completes balance EXs as listed above. Pt then concludes PT session with 10 min on NuStep. Pt was taken back to room, and was seated in recliner, pt had call light and tray in reach, and all needs were met. Assessment Current Status: Good Progress Pt would benefit from continued PT to improve on balance, activity tolerance, strength and GT. PT Short Term Goals Short Term Goals Time Frame: November 09, 2021 Roll Left & Right: 6 Sit to lyin Lying to sitting on side of be: 6 Sit to stand: 4 (SBA) Chair/yfl-li-rbplo transfer: 4 (SBA) Walk 10 feet: 4 (SBA) Walk 50 feet with two turns: 4 (SBA) Walk 150 feet: 4 (SBA) PT Wall Scraper Goals Wall Scraper Goals PT Senior Living Goals Time Frame: November 23, 2021 Roll Left & Right (QC): 6 Sit to Lying (QC): 6 Lying-Sitting on Side/Bed(QC): 6 Sit to Stand (QC): 6 Chair/Xpp-lb-Tswzr Xfer(QC): 6 Toilet Transfer (QC): 6 Car Transfer (QC): 6 Does the Patient Walk: Yes Walk 10 feet (QC): 6 Walk 50ft with 2 Turns (QC): 6 Walk 150 ft (QC): 6 Walking 10ft on Uneven Surface: 6 1 Step (curb) (QC): 6 4 Steps (QC): 6 12 Steps (QC): 88 Picking up an Object (QC): 6 Does the Pt use WC or Scooter?: No Wheel 50 feet with 2 turns (QC: 9 Type: N/A Wheel 150 feet: 9 Type: N/A PT Plan Problem List Problem List: Activity Tolerance, Functional Strength, Balance, Gait Treatment/Plan Treatment Plan: Continue Plan of Care Treatment Plan: Education, Functional Activity Pauly, Functional Strength, Group Therapy, Gait, Safety, Therapeutic Exercise, Transfers Treatment Duration: Nov 03, 2021 Frequency: At least 5 of 7 days/Wk (IRF) Estimated Hrs Per Day: 1.5 hours per day Patient and/or Family Agrees t: Yes Safety Risks/Education Patient Education: Gait Training, Correct Positioning, Safety Issues Teaching Recipient: Patient Teaching Methods: Discussion Response to Teaching: Verbalize Understanding Time/GCodes Time In: 800 Time Out: 900 Total Billed Treatment Time: 60 Total Billed Treatment 1, GT (10), EX (20), NM x2 (30) BENJAMIN SIMS RATCHET SETTER November 07, 2021 09:02
--- NOTE | 2021-11-07 10:22 | Occupational Ther Daily Note ---
OT Current Status-Daily Note Subjective Pt denies pain, agreeable to treatment. Appearance Pt left sitting in recliner, all needs within reach at OT departure. Mental Status/Objective Patient Orientation: Person, Place, Situation ADL-Treatment Therapy Code Descriptions/Definitions Functional [place] Measure: 0=Not Assessed/NA 4=Minimal Assistance 1=Total Assistance 5=Supervision or Setup 2=Maximal Assistance 6=Modified [place] 3=Moderate Assistance 7=Complete IndependenceSCALE: Activities may be completed with or without assistive devices. 8-Hmteqveais-elxokyx completes the activity by him/herself with no assistance from a helper. 5-Set-up or Clean-up Assistance-helper sets up or cleans up; patient completes activity. [place] assists only prior to or following the activity. 4-Supervision or Touching Assistance-helper provides verbal cues and/or touching/steadying and/or contact guard assistance as patient completes activit y. Assistance may be provided throughout the activity or intermittently. 3-Partial/Moderate Assistance-helper does LESS THAN HALF the effort. [place] lifts, holds or supports trunk or limbs, but provides less than half the effort. 2-Substantial/Maximal Assistance-helper does MORE THAN HALF the effort. [place] lifts or holds trunk or limbs and provides more than half the effort. 4-Jikpfbjud-febkxm does ALL the effort. Patient does none of the effort to complete the activity. Or, the assistance of 2 or more helpers is required for the patient to complete the activity. If activity was not attempted, code reason: 7-Patient Refused. 9-Not Applicable-not attempted and the patient did not perform the activity before the current illness, exacerbation or injury. 10-Not Attempted due to Environmental Limitations-(lack of equipment, weather restraints, etc.). 88-Not Attempted due to Medical Conditions or Safety Concerns. Eating (QC): 6 Oral Hygiene (QC): 6 Shower/Bathe Self (QC): 6 Upper Body Dressing (QC): 6 Lower Body Dressing (QC): 6 On/Off Footwear: 6 Toileting Hygiene (QC): 6 Toilet Transfer (QC): 6 Pt retrieved clothing, set up shower, and completed all bathing and dressing tasks independently. Post morning routine, She was able to pick up and delivery driver towels/clothing from floor to clean up bathroom without any LOB. She reports that she is supposed to wear oscar hose but at home, she normally has too much difficulty getting them over her feet. OT introduced and instructed her on use of sock aid to aid in task. Post instruction, pt was able to don oscar hose with AE without any assistance or extra effort. Other Treatment Pt ambulated around unit, ~500 feet with use of 4WW and supervision for safety. No sitting rest break needed. Good recall on sitting method when transferring in/out of tub, no assist or cues required. Tub transfer performed x3 with goal to promote increased endurance, strength, and confidence in task. UE exercises completed with 2# dumbbell. LUE fatigues quicker than R, needing intermittent AAROM for last 2-3 reps in set. 10x1 all planes. Seated chair core exercises 10x1 each. Education OT Patient Education: Correct positioning, Energy conservation, Exercise program, Modified ADL techniques, Progress toward Goal/Update tx plan, Purpose of tx/functional activities, Use of adapted equipment Teaching Recipient: Patient Teaching Methods: Demonstration, Discussion Response to Teaching: Verbalize Understanding, Return Demonstration OT Short Term Goals Short Term Goals Time Frame: November 09, 2021 Eatin Oral hygiene: 5 Toileting hygiene: 4 Shower/bathe self: 4 Upper body dressin Lower body dressin Putting on/taking off footwear: 5 OT Enterprise Resource Planner Goals Shelter Goals Time Frame: November 14, 2021 Eating (QC): 6 Oral Hygiene (QC): 6 Toileting Hygiene (QC): 6 Shower/Bathe Self (QC): 6 Upper Body Dressing (QC): 6 Lower Body Dressing (QC): 6 On/Off Footwear (QC): 6 1=Demonstrate adherence to instructed precautions during ADL tasks. 2=Patient will verbalize/demonstrate understanding of assistive devices/modifications for ADL. 3=Patient will improve strength/tolerance for activity to enable patient to perform ADL's. OT Education/Plan Problem List/Assessment Assessment: Decreased Activ Tolerance, Decreased UE Strength, Impaired I ADL's Discharge Recommendations Plan/Recommendations: Continue POC Treatment Plan/Plan of Care Treatment,Training & Education: Yes Patient would benefit from OT for education, treatment and training to promote independence in ADL's, mobility, safety and/or upper extremity function for ADL's. Plan of Care: ADL Retraining, Functional Mobility, Group Exercise/Act as Ind, UE Funct Exercise/Act Treatment Duration: November 14, 2021 Frequency: At least 5 of 7 days/Wk (IRF) Estimated Hrs Per Day: 1.5 hours per day (60-90 min/day ) Agreement: Yes Rehab Potential: Good Time/GCodes Start Time: 09:00 Stop Time: 10:15 Total Time Billed (hr/min): 75 Billed Treatment Time 1 visit ADL x3 (45 min) EX x2 (30 min) Marnie Williamson OT November 07, 2021 10:22
[2021-11-07] MEDS ORDERED: guaiFENesin (MUCINEX) 600 MG TAB PO NR (11:04)
--- NOTE | 2021-11-07 11:30 | Speech Therapy Daily Note ---
Speech Daily Progress Note Subjective Date Seen by Provider: November 07, 2021 Time Seen by Provider: 10:30 The patient was seated upright in her recliner, awake and alert upon entrance to her room by the clinician. The patient greeted the clinician appropriately and was agreeable to participation in the cognitive linguistic treatment session. Objective The patient completed the MoCA on this date with a result of +26/30 correlating to neurocognitive skills within normal limits. The patient had four points deducted from her final score, as she was only able to recall one of five single words following an approximate five minute delay. Assessment Assessment Current Status: Good Progress Treatment Plan Continue Plan of Care Speech Short Term Goals Short Term Goals Short Term Goals 1. The patient will demonstrate 90% accuracy with memory exercises, independently. Time Frame-STG: Five Days. Speech Special Crimes Investigator Goals Special Crimes Investigator Goals 1. The patient will demonstrate improved cognitive linguistic skills for safe discharge to the least restrictive environment. Time Frame: One Week. Speech-Plan Treatment Plan Speech Therapy Treatment Plan: Continue Plan of Care Treatment Duration: Nov 03, 2021 Frequency: Modified Program (IRF) Estimated Hrs Per Day: Other Rehab Potential: Good Pt/Family Agrees to Plan: Yes Safety Risks/Education Teaching Recipient: Patient Teaching Methods: Discussion Education Topics Provided: Results of MoCA, Progression through Therapy. Time Speech Therapy Time In: 10:30 Speech Therapy Time Out: 11:00 Total Billed Time: 30 Billed Treatment Time 1KARISHMA [facility]IZ[address] ST November 07, 2021 11:30
--- NOTE | 2021-11-07 14:34 | Physical Therapy Daily Note ---
PT Daily Note-Current Subjective Upon arrival pt was seated in recliner, pts was present. Pt agrees to PT. Pain Comment: Pt reports no pain. Mental Status Patient Orientation: Person, Place, Time, Situation, Normal For Age Transfers SCALE: Activities may be completed with or without assistive devices. 1-Cekxpsazhk-mcwhjmw completes the activity by him/herself with no assistance from a helper. 5-Set-up or Clean-up Assistance-helper sets up or cleans up; patient completes activity. [place] assists only prior to or following the activity. 4-Supervision or Touching Assistance-helper provides verbal cues and/or touching/steadying and/or contact guard assistance as patient completes activity. Assistance may be provided throughout the activity or intermittently. 3-Partial/Moderate Assistance-helper does LESS THAN HALF the effort. [place] lifts, holds or supports trunk or limbs, but provides less than half the effort. 2-Substantial/Maximal Assistance-helper does MORE THAN HALF the effort. [place] lifts or holds trunk or limbs and provides more than half the effort. 9-Mkoieqvyp-hkmjgz does ALL the effort. Patient does none of the effort to complete the activity. Or, the assistance of 2 or more helpers is required for the patient to complete the activity. If activity was not attempted, code reason: 7-Patient Refused. 9-Not Applicable-not attempted and the patient did not perform the activity before the current illness, exacerbation or injury. 10-Not Attempted due to Environmental Limitations-(lack of equipment, weather restraints, etc.). 88-Not Attempted due to Medical Conditions or Safety Concerns. Sit to Stand (QC): 4 Gait Training Does the Patient Walk?: Yes Distance: 300' Walk 10 feet (QC): 4 Walk 50 ft with 2 Turns(QC): 4 Walk 150 ft (QC): 4 Gait Assistive Device: Walker 4 Wheeled Pt underwent the Tinnetti test and scored a 21/28. Pt demonstrated reciprocal GT pattern, with short step length and normal speed. Pt demonstrated no LOB. Treatments Pt underwent the Tinnetti test and scored a 21/28. Pt demonstrated reciprocal GT pattern, with short step length and normal speed. Pt demonstrated no LOB. Pt ambulated 300' from room down the gambino and around 2nd floor lobby. As PT concluded, pt was seated back in recliner, with call light and tray in reach and all needs met. As PT was exiting pts room, pts was still present. Assessment Current Status: Good Progress Pt world benefit from continued PT to improve on strength, GT, balance, and activity tolerance. PT Short Term Goals Short Term Goals Time Frame: November 09, 2021 Roll Left & Right: 6 Sit to lyin Lying to sitting on side of be: 6 Sit to stand: 4 (SBA) Chair/qoo-rs-hqusa transfer: 4 (SBA) Walk 10 feet: 4 (SBA) Walk 50 feet with two turns: 4 (SBA) Walk 150 feet: 4 (SBA) PT Real Estate Legal Assistant Goals Nursing Home Goals PT Nursing Home Goals Time Frame: November 23, 2021 Roll Left & Right (QC): 6 Sit to Lying (QC): 6 Lying-Sitting on Side/Bed(QC): 6 Sit to Stand (QC): 6 Chair/Gqi-hb-Gkobw Xfer(QC): 6 Toilet Transfer (QC): 6 Car Transfer (QC): 6 Does the Patient Walk: Yes Walk 10 feet (QC): 6 Walk 50ft with 2 Turns (QC): 6 Walk 150 ft (QC): 6 Walking 10ft on Uneven Surface: 6 1 Step (curb) (QC): 6 4 Steps (QC): 6 12 Steps (QC): 88 Picking up an Object (QC): 6 Does the Pt use WC or Scooter?: No Wheel 50 feet with 2 turns (QC: 9 Type: N/A Wheel 150 feet: 9 Type: N/A PT Plan Problem List Problem List: Activity Tolerance, Functional Strength, Balance, Gait Treatment/Plan Treatment Plan: Continue Plan of Care Treatment Plan: Education, Functional Activity Pauly, Functional Strength, Group Therapy, Gait, Safety, Therapeutic Exercise, Transfers Treatment Duration: Nov 03, 2021 Frequency: At least 5 of 7 days/Wk (IRF) Estimated Hrs Per Day: 1.5 hours per day Patient and/or Family Agrees t: Yes Time/GCodes Time In: 1300 Time Out: 1315 Total Billed Treatment Time: 15 Total Billed Treatment 1, GT (15) BENJAMIN SIMS PTA November 07, 2021 14:34
[2021-11-07 20:00] VITALS: BP 137/72
[2021-11-07] MEDS: MONTELUKAST 10 MG (SINGULAIR) TAB PO SCH (21:19)
[2021-11-07] MEDS: guaiFENesin (MUCINEX) 600 MG TAB PO SCH (21:19)
[2021-11-07] MEDS: lisINopril 10 MG (PRINIVIL) TABLET PO SCH (21:19)
--- NOTE | 2021-11-08 05:27 | PM&R Progress Note ---
Subjective HPI/CC On Admission Date Seen by Provider: November 08, 2021 Time Seen by Provider: 10:15 Subjective/Events-last exam 11/08/2021: Pt is doing well Low grade fever Mucinex is helping BP is a little bit high today Quad cane used today 11/07/2021: Patient doing well Blood sugars improved No falls Gaining strength 11/06/2021: Patient doing better No pain reported Blood sugars labile Brittle diabetes Low sugar this morning so we will adjust Levemir 11/05/2021: Had a rough night Blood sugars low so we will adjust Levemir 14 units at night to 7 units at night Very brittle diabetes which has been an ongoing issue Supportive care will continue 11/04/21: Patient doing better Sugars managed with insulin No pain reported other than chronic issue 11/03/2021: Patient doing really well today Working on stamina and strength Blood sugars very labile Patient with very brittle diabetes Restarted her long-acting insulin No pain reported except for chronic back pain Review of Systems General: Fatigue, Malaise Objective Exam Vital Signs Vital Signs Date Time Temp Pulse Resp B/P (MAP) Pulse Ox O2 Delivery O2 Flow Rate FiO2 11/08/21 20:25 98 Room Air 11/08/21 19:26 37.5 82 20 163/72 (102) Capillary Refill : General Appearance: No Apparent Distress, WD/WN, Chronically ill, Thin HEENT: PERRL/EOMI, Normal ENT Inspection, Pharynx Normal Neck: Full Range of Motion, Normal Inspection, Non Tender, Supple, Carotid Bruit Respiratory: Chest Non Tender, Lungs Clear, Normal Breath Sounds, No Accessory Muscle Use, No Respiratory Distress Cardiovascular: Regular Rate, Rhythm, No Edema, No Gallop, No JVD, No Murmur, Normal Peripheral Pulses Gastrointestinal: Normal Bowel Sounds, No Organomegaly, No Pulsatile Mass, Non Tender, Soft Back: Normal Inspection, No CVA Tenderness, No Vertebral Tenderness Extremity: Normal Capillary Refill, Normal Inspection, Normal Range of Motion, Non Tender, No Calf Tenderness, No Pedal Edema Neurologic/Psychiatric: Alert, Oriented x3, monologist II-XII Norm as Tested, Abnormal Gait, Depressed Affect, Motor Weakness (Generalized) Skin: Normal Color, Warm/Dry Lymphatic: No Adenopathy Results/Procedures Lab Patient resulted labs reviewed. FIM Transfers Therapy Code Descriptions/Definitions Functional [place] Measure: 0=Not Assessed/NA 4=Minimal Assistance 1=Total Assistance 5=Supervision or Setup 2=Maximal Assistance 6=Modified [place] 3=Moderate Assistance 7=Complete IndependenceSCALE: Activities may be completed with or without assistive devices. 4-Utmoudibzf-qsznlbl completes the activity by him/herself with no assistance from a helper. 5-Set-up or Clean-up Assistance-helper sets up or cleans up; patient completes activity. [place] assists only prior to or following the activity. 4-Supervision or Touching Assistance-helper provides verbal cues and/or touching/steadying and/or contact guard assistance as patient completes activity. Assistance may be provided throughout the activity or intermittently. 3-Partial/Moderate Assistance-helper does LESS THAN HALF the effort. [place] lifts, holds or supports trunk or limbs, but provides less than half the effort. 2-Substantial/Maximal Assistance-helper does MORE THAN HALF the effort. [place] lifts or holds trunk or limbs and provides more than half the effort. 1-Srtojbjox-vwqakq does ALL the effort. Patient does none of the effort to complete the activity. Or, the assistance of 2 or more helpers is required for the patient to complete the activity. If activity was not attempted, code reason: 7-Patient Refused. 9-Not Applicable-not attempted and the patient did not perform the activity before the current illness, exacerbation or injury. 10-Not Attempted due to Environmental Limitations-(lack of equipment, weather restraints, etc.). 88-Not Attempted due to Medical Conditions or Safety Concerns. Roll Left to Right (QC): 6 Sit to Lying (QC): 6 Sit to Stand (QC): 4 Chair/Wgw-as-Rbstc Xfer(QC): 6 Car Transfer (QC): 4 (CGA) Gait Training Does the Patient Walk?: Yes Distance: 300' Walk 10 feet (QC): 4 Walk 50 ft with 2 Turns(QC): 4 Walk 150 ft (QC): 4 Walking 10ft/uneven surface-QC: 4 (CGA) Gait Persons Needed: 1 Gait Assistive Device: Walker 4 Wheeled Wheelchair Training Does the Pt Use a Wheelchair?: No Wheel 50 ft with 2 turns (QC): 9 Wheel 150 ft (QC): 9 Stair Training 1 Step (curb) (QC): 4 (CGA) 4 Steps (QC): 4 (CGA) 12 Steps (QC): 88 Balance Picking up an Object (QC): 4 (CGA with doubling machine operator) ADL-Treatment Eating (QC): 6 Oral Hygiene (QC): 6 Shower/Bathe Self (QC): 6 Upper Body Dressing (QC): 6 Lower Body Dressing (QC): 6 On/Off Footwear (QC): 6 Toileting Hygiene (QC): 6 Toilet Transfer (QC): 6 Assessment/Plan Assessment and Plan Assess & Plan/Chief Complaint Assessment: 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 History of C. difficile Plan: Inpatient rehab protocol Supportive care Blood sugar monitoring Monitor kidney function 11/03/2021: Supportive care Monitor closely Blood sugar management 11/04/21: Monitor sugar Therapy 11/05/2021: Supportive care continue Decrease Levemir 11/06/2021: Supportive care Monitor closely 11/07/2021: Supportive care Monitor closely 11/08/2021: Supportive care Monitor closely (1) CVA (cerebral vascular accident) (2) Diabetes mellitus Status: Chronic (3) CAD (coronary artery disease) Status: Chronic (4) Hyperlipidemia Status: Chronic (5) PAD (peripheral artery disease) Status: Chronic (6) Diabetes mellitus, insulin dependent (IDDM), uncontrolled Status: Acute (7) ROSA (acute kidney injury) Status: Acute (8) COPD (chronic obstructive pulmonary disease) Status: Chronic (9) CKD (chronic kidney disease) stage 3, GFR 30-59 ml/min Status: Chronic (10) Coronary artery disease without angina pectoris (11) Primary hypertension (12) Mixed hyperlipidemia TONG MAGALLON DO November 08, 2021 05:27
[2021-11-08] MEDS: LEVOTHYROXINE 100 MCG (LEVOTHROID) TAB PO SCH (06:18)
[2021-11-08] MEDS: LEVOTHYROXINE 25 MCG (LEVOTHROID) TAB PO SCH (06:18)
[2021-11-08] MEDS: PANTOPRAZOLE 40 MG (PROTONIX) TAB PO SCH ×2 (06:18→15:45)
[2021-11-08] MEDS: inSUlin ASPART (NovoLOG) 1 UNIT/0.01 ML (CHARGE PER UNIT) SC SCH ×4 (06:19→20:27)
[2021-11-08] MEDS: RT--FLUTICASONE/SALMETEROL 232-14 (AIRDUO RespiCLICK) IH SCH ×2 (07:04→18:37)
[2021-11-08] MEDS: UMECLIDINIUM BROMIDE (INCRUSE ELLIPTA) 7'S IH SCH (07:04)
[2021-11-08 07:26] VITALS: BP 167/72
[2021-11-08] MEDS: CALCITRIOL 0.25 MCG (ROCALTROL) CAPSULE PO SCH (07:53)
[2021-11-08] MEDS: CLOPIDOGREL 75 MG (PLAVIX) TABLET PO SCH (07:54)
[2021-11-08] MEDS: PARoxetine 20 MG (PAXIL) TAB PO SCH (07:54)
[2021-11-08] MEDS: guaiFENesin (MUCINEX) 600 MG TAB PO SCH ×2 (07:54→20:22)
[2021-11-08] MEDS: FOLIC ACID 1 MG TAB PO SCH (07:54)
[2021-11-08] MEDS: NICOTINE 21 MG (NICODERM) PATCH TD SCH (07:56)
--- NOTE | 2021-11-08 07:57 | Occupational Ther Daily Note ---
OT Current Status-Daily Note Subjective Pt denies pain, agreeable to treatment. Appearance Pt returned to sitting in recliner, all needs within reach. Mental Status/Objective Patient Orientation: Person, Place, Situation ADL-Treatment Therapy Code Descriptions/Definitions Functional [place] Measure: 0=Not Assessed/NA 4=Minimal Assistance 1=Total Assistance 5=Supervision or Setup 2=Maximal Assistance 6=Modified [place] 3=Moderate Assistance 7=Complete IndependenceSCALE: Activities may be completed with or without assistive devices. 6-Nmbqkvziiq-yohmmwf completes the activity by him/herself with no assistance from a helper. 5-Set-up or Clean-up Assistance-helper sets up or cleans up; patient completes activity. [place] assists only prior to or following the activity. 4-Supervision or Touching Assistance-helper provides verbal cues and/or touching/steadying and/or contact guard assistance as patient completes activity. Assistance may be provided throughout the activity or intermittently. 3-Partial/Moderate Assistance-helper does LESS THAN HALF the effort. [place] lifts, holds or supports trunk or limbs, but provides less than half the effort. 2-Substantial/Maximal Assistance-helper does MORE THAN HALF the effort. [place] lifts or holds trunk or limbs and provides more than half the effort. 0-Liqinsupx-kyfnuv does ALL the effort. Patient does none of the effort to complete the activity. Or, the assistance of 2 or more helpers is required for the patient to complete the activity. If activity was not attempted, code reason: 7-Patient Refused. 9-Not Applicable-not attempted and the patient did not perform the activity before the current illness, exacerbation or injury. 10-Not Attempted due to Environmental Limitations-(lack of equipment, weather restraints, etc.). 88-Not Attempted due to Medical Conditions or Safety Concerns. Eating (QC): 6 Upper Body Dressing (QC): 6 Lower Body Dressing (QC): 6 On/Off Footwear: 6 Toileting Hygiene (QC): 6 Toilet Transfer (QC): 6 Pt retrieved and donned all clothing independently. Good recall of sock aid when donning oscar hose, extra time only. No unsteadiness or safety concerns observed when ambulating around room with 4WW. Other Treatment 2nd session ([id number]): Pt participated in multiple endurance/strengthening activities in order to p romote increased activity tolerance and independence for functional tasks. While standing on blue air-x foam, pt performed UE exercises with 1# dowel frantz. 10x1 all planes. Close SBA for safety with balance during activity; Cues for widening Z[place] for improved balance but no LOB notable. Pt stood to complete nuts/bolts board from elevated height to increase shoulder strength/ROM. Pt tolerated ~5 minutes before needing a seated rest break. 1# wrist weights added to BUE's for strengthening component. Seated and standing core exercises completed including marches, hip adduction, side bends, and leg lifts (with 2# ankle weights). Yellow theraband exercises performed: shoulder flexion, adduction, bicep curl, and rows 10 x1 each. Education OT Patient Education: Correct positioning, Energy conservation, Exercise program, Progress toward Goal/Update tx plan, Purpose of tx/functional activities, Safety issues Teaching Recipient: Patient Teaching Methods: Discussion Response to Teaching: Verbalize Understanding, Return Demonstration OT Short Term Goals Short Term Goals Time Frame: November 09, 2021 Eatin Oral hygiene: 5 Toileting hygiene: 4 Shower/bathe self: 4 Upper body dressin Lower body dressin Putting on/taking off footwear: 5 OT Custodial Goals Custodial Goals Time Frame: November 14, 2021 Eating (QC): 6 Oral Hygiene (QC): 6 Toileting Hygiene (QC): 6 Shower/Bathe Self (QC): 6 Upper Body Dressing (QC): 6 Lower Body Dressing (QC): 6 On/Off Footwear (QC): 6 1=Demonstrate adherence to instructed precautions during ADL tasks. 2=Patient will verbalize/demonstrate understanding of assistive devices/modifications for ADL. 3=Patient will improve strength/tolerance for activity to enable patient to perform ADL's. OT Education/Plan Problem List/Assessment Assessment: Decreased Activ Tolerance, Decreased UE Strength, Impaired I ADL's Discharge Recommendations Plan/Recommendations: Continue POC Treatment Plan/Plan of Care Treatment,Training & Education: Yes Patient would benefit from OT for education, treatment and training to promote independence in ADL's, mobility, safety and/or upper extremity function for ADL's. Plan of Care: ADL Retraining, Functional Mobility, Group Exercise/Act as Ind, UE Funct Exercise/Act Treatment Duration: November 14, 2021 Frequency: At least 5 of 7 days/Wk (IRF) Estimated Hrs Per Day: 1.5 hours per day (60-90 min/day ) Agreement: Yes Rehab Potential: Good Time/GCodes Start Time: 07:28 (0900) Stop Time: 07:45 (1000) Total Time Billed (hr/min): 77 Billed Treatment Time 1 visit ADL (17 min) 2nd visit EX x2 (35 min) FA x2 (25 min) Marnie Williamson OT November 08, 2021 07:57
[2021-11-08] MEDS: NICOTINE PATCH REMOVAL TP SCH (07:58)
[2021-11-08] MEDS: DOCUSATE SODIUM 100 MG (COLACE) CAP PO SCH ×2 (07:59→20:24)
[2021-11-08] MEDS: polyethylene glycoL POWDER 17 GM (MIRALAX) PACK PO SCH ×2 (07:59→20:24)
[2021-11-08] MEDS: SENNA W/DOCUSATE (SENOKOT S) TABLET PO SCH ×2 (08:00→20:24)
[2021-11-08] MEDS: APIXABAN 5 MG (ELIQUIS) TABLET PO SCH ×2 (08:00→20:21)
--- NOTE | 2021-11-08 09:03 | Physical Therapy Daily Note ---
PT Daily Note-Current Subjective Upon arrival pt was seated in recliner. Pts RN was present. Pt agrees to PT. Pain Comment: Pt reports no pain. Mental Status Patient Orientation: Person, Place, Time, Situation, Normal For Age Transfers SCALE: Activities may be completed with or without assistive devices. 2-Dieyespbqe-fodipmm completes the activity by him/herself with no assistance from a helper. 5-Set-up or Clean-up Assistance-helper sets up or cleans up; patient completes activity. [place] assists only prior to or following the activity. 4-Supervision or Touching Assistance-helper provides verbal cues and/or touching/steadying and/or contact guard assistance as patient completes activity. Assistance may be provided throughout the activity or intermittently. 3-Partial/Moderate Assistance-helper does LESS THAN HALF the effort. [place] lifts, holds or supports trunk or limbs, but provides less than half the effort. 2-Substantial/Maximal Assistance-helper does MORE THAN HALF the effort. [place] lifts or holds trunk or limbs and provides more than half the effort. 5-Setavktun-kjulyp does ALL the effort. Patient does none of the effort to complete the activity. Or, the assistance of 2 or more helpers is required for the patient to complete the activity. If activity was not attempted, code reason: 7-Patient Refused. 9-Not Applicable-not attempted and the patient did not perform the activity before the current illness, exacerbation or injury. 10-Not Attempted due to Environmental Limitations-(lack of equipment, weather restraints, etc.). 88-Not Attempted due to Medical Conditions or Safety Concerns. Sit to Stand (QC): 4 Gait Training Does the Patient Walk?: Yes Distance: 250' Walk 10 feet (QC): 4 Walk 50 ft with 2 Turns(QC): 4 Walk 150 ft (QC): 4 Gait Persons Needed: 1 Gait Assistive Device: Cane Large Base Quad Pt ambulated 250' with quad cane, Pt was CGA. Pt required VC to take bigger steps with quad cane to have a continued step through GT pattern, and to have proper posture when ambulating. Pt demonstrated min LOB, but was able to self correct. Pt required rest breaks during ambulation. Wheelchair Training Does the Pt Use a Wheelchair?: No Exercises Standing: Hamstring curls, Heel/toe raises, 3 way Ex=Flex, Abd, Ext, Marching Standing Reps: 10 All completed at // bars. Neuromuscular Pt performed and completed balance EXs in // bars. Pt performed Narrow static standing for 30sec, then progressed to 1min. Pt attempted to perform tandem stat ic standing but was unable too, due to LOB, pt put one foot forward, and held for 30 secs, then 1min. Pt ambulated in // bars without holding on 3x. Pt then completed narrow static standing with head turning side to side and up and down 30 secs each 2x. Pt demonstrated some min sway. Pt had min LOB, and put a hand on the bars, to stay steady during head turning to the side and up and down, then let go once balance was regained. Treatments Pt ambulated with a quad cane 250'. Pt performed balance EXs in // bars. Pt finished tx session with standing EXs as listed above. Pt was seated back into recliner, concluding the tx session. As pt was seated in recliner pts RN arrives. Pt had call light and tray in reach and all needs were met. As PT exits pts room, pts RN was still present. Assessment Current Status: Good Progress Pt would benefit from continued PT to improve on balance, GT, strength and activity tolerance. 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 Operator Goals PT Fdc Goals Time Frame: November 23, 2021 Roll Left & Right (QC): 6 Sit to Lying (QC): 6 Lying-Sitting on Side/Bed(QC): 6 Sit to Stand (QC): 6 Chair/Zvy-pc-Embzz Xfer(QC): 6 Toilet Transfer (QC): 6 Car Transfer (QC): 6 Does the Patient Walk: Yes Walk 10 feet (QC): 6 Walk 50ft with 2 Turns (QC): 6 Walk 150 ft (QC): 6 Walking 10ft on Uneven Surface: 6 1 Step (curb) (QC): 6 4 Steps (QC): 6 12 Steps (QC): 88 Picking up an Object (QC): 6 Does the Pt use WC or Scooter?: No Wheel 50 feet with 2 turns (QC: 9 Type: N/A Wheel 150 feet: 9 Type: N/A PT Plan Problem List Problem List: Activity Tolerance, Functional Strength, Balance, Gait Treatment/Plan Treatment Plan: Continue Plan of Care Treatment Plan: Education, Functional Activity Pauly, Functional Strength, Group Therapy, Gait, Safety, Therapeutic Exercise, Transfers Treatment Duration: Nov 03, 2021 Frequency: At least 5 of 7 days/Wk (IRF) Estimated Hrs Per Day: 1.5 hours per day Patient and/or Family Agrees t: Yes Safety Risks/Education Patient Education: Gait Training, Steps, Correct Positioning, Safety Issues Teaching Recipient: Patient Teaching Methods: Demonstration, Discussion Response to Teaching: Verbalize Understanding, Return Demonstration Time/GCodes Time In: 800 Time Out: 900 Total Billed Treatment Time: 60 Total Billed Treatment 1, GT x2 (30), NM (20), EX (10) BENJAMIN SIMS PTA November 08, 2021 09:03
--- NOTE | 2021-11-08 09:27 | Speech Therapy Daily Note ---
Speech Daily Progress Note Subjective Date Seen by Provider: November 08, 2021 Time Seen by Provider: 10:30 The patient was seated upright in her recliner, awake and alert upon entrance to her room by the clinician. The patient greeted the clinician appropriately and was agreeable to participation in the cognitive linguistic treatment session. Objective - Four Word Memory and Mental Manipulation: The patient was provided four words and asked to place the words in the order the words would occur. The patient displayed excellent accuracy with the exercise, displaying 94% (17/18) accuracy, independently. Assessment Assessment Current Status: Good Progress Treatment Plan Continue Plan of Care Speech Short Term Goals Short Term Goals Short Term Goals 1. The patient will demonstrate 90% accuracy with memory exercises, independently. Time Frame-STG: Five Days. Speech Jail Goals Filling Layer Up Goals 1. The patient will demonstrate improved cognitive linguistic skills for safe discharge to the least restrictive environment. Time Frame: One Week. Speech-Plan Treatment Plan Speech Therapy Treatment Plan: Continue Plan of Care Treatment Duration: Nov 03, 2021 Frequency: Modified Program (IRF) Estimated Hrs Per Day: Other Rehab Potential: Good Safety Risks/Education Teaching Recipient: Patient Teaching Methods: Demonstration, Discussion Response to Teaching: Verbalize Understanding, Return Demonstration Education Topics Provided: Internal Memory Strategies Time Speech Therapy Time In: 10:30 Speech Therapy Time Out: 11:00 Total Billed Time: 30 Billed Treatment Time KARISHMA Alcantara [facility] November 08, 2021 09:27
--- NOTE | 2021-11-08 14:04 | Physical Therapy Daily Note ---
PT Daily Note-Current Subjective Upon arrival, pt was asleep in recliner. Pt agrees to PT. Pain Comment: Pt reports no pain. Mental Status Patient Orientation: Person, Place, Time, Situation, Normal For Age Transfers SCALE: Activities may be completed with or without assistive devices. 8-Yfotnujzsc-mniyouq completes the activity by him/herself with no assistance from a helper. 5-Set-up or Clean-up Assistance-helper sets up or cleans up; patient completes activity. [place] assists only prior to or following the activity. 4-Supervision or Touching Assistance-helper provides verbal cues and/or touching/steadying and/or contact guard assistance as patient completes activity. Assistance may be provided throughout the activity or intermittently. 3-Partial/Moderate Assistance-helper does LESS THAN HALF the effort. [place] lifts, holds or supports trunk or limbs, but provides less than half the effort. 2-Substantial/Maximal Assistance-helper does MORE THAN HALF the effort. [place] lifts or holds trunk or limbs and provides more than half the effort. 9-Kxuebkkvi-iiwadu does ALL the effort. Patient does none of the effort to complete the activity. Or, the assistance of 2 or more helpers is required for the patient to complete the activity. If activity was not attempted, code reason: 7-Patient Refused. 9-Not Applicable-not attempted and the patient did not perform the activity before the current illness, exacerbation or injury. 10-Not Attempted due to Environmental Limitations-(lack of equipment, weather restraints, etc.). 88-Not Attempted due to Medical Conditions or Safety Concerns. Sit to Lying (QC): 4 Sit to Stand (QC): 4 Chair/Llp-ca-Hriiw Xfer(QC): 4 Gait Training Does the Patient Walk?: Yes Distance: 146' Walk 10 feet (QC): 4 Walk 50 ft with 2 Turns(QC): 4 Walk 150 ft (QC): 4 Gait Assistive Device: Cane Small Base Quad Pt ambulated with quad cane, from room to the 2nd lobby of the 2nd floor to main lobby and back to room. Pt stated that she was fatigued from therapy this morning, and was finished with walking. Pt demonstrated slow, step through GT pattern, and wasn't picking up her feet very high. Exercises Seated Therapy Exercises: Ankle pumps, Long arc quads, Hip flexion, Hip abd/add Seated Reps: 10 Treatments Pt performed and completed all seated EXs as listed above. Pt ambulated from room around 2nd floor and stated that she was fatigued and was done walking. Once PT was concluded, pt requested to go to bed. Pt had question on whether she could walk on her own. Therapist discusses with pt the results of her Tinetti test, and that she is Mod fall risk right now, and that she shouldn't walk alone. Therapist states that she will talk to PT on what they can do next, in hopes that pt can be more independent. Assessment Current Status: Good Progress Pt would benefit from continued PT to improve on GT, strength, balance, and activity tolerance. PT Short Term Goals Short Term Goals Time Frame: November 09, 2021 Roll Left & Right: 6 Sit to lyin Lying to sitting on side of be: 6 Sit to stand: 4 (SBA) Chair/ctk-sp-ccbgs transfer: 4 (SBA) Walk 10 feet: 4 (SBA) Walk 50 feet with two turns: 4 (SBA) Walk 150 feet: 4 (SBA) PT Alf Goals Maintenance Mechanic [place] Goals PT Alf Goals Time Frame: November 23, 2021 Roll Left & Right (QC): 6 Sit to Lying (QC): 6 Lying-Sitting on Side/Bed(QC): 6 Sit to Stand (QC): 6 Chair/Phf-vj-Mlgqq Xfer(QC): 6 Toilet Transfer (QC): 6 Car Transfer (QC): 6 Does the Patient Walk: Yes Walk 10 feet (QC): 6 Walk 50ft with 2 Turns (QC): 6 Walk 150 ft (QC): 6 Walking 10ft on Uneven Surface: 6 1 Step (curb) (QC): 6 4 Steps (QC): 6 12 Steps (QC): 88 Picking up an Object (QC): 6 Does the Pt use WC or Scooter?: No Wheel 50 feet with 2 turns (QC: 9 Type: N/A Wheel 150 feet: 9 Type: N/A PT Plan Problem List Problem List: Activity Tolerance, Functional Strength, Balance, Gait Treatment/Plan Treatment Plan: Continue Plan of Care Treatment Plan: Education, Functional Activity Pauly, Functional Strength, Group Therapy, Gait, Safety, Therapeutic Exercise, Transfers Treatment Duration: Nov 03, 2021 Frequency: At least 5 of 7 days/Wk (IRF) Estimated Hrs Per Day: 1.5 hours per day Patient and/or Family Agrees t: Yes Safety Risks/Education Patient Education: Gait Training, Correct Positioning, Safety Issues Teaching Recipient: Patient Teaching Methods: Discussion Response to Teaching: Verbalize Understanding Time/GCodes Time In: 1300 Time Out: 1315 Total Billed Treatment Time: 15 Total Billed Treatment 1, FA (15) BENJAMIN SIMS PTA November 08, 2021 14:04
[2021-11-08 19:26] VITALS: BP 163/72
[2021-11-08] MEDS: lisINopril 10 MG (PRINIVIL) TABLET PO SCH (20:22)
[2021-11-08] MEDS: MONTELUKAST 10 MG (SINGULAIR) TAB PO SCH (20:22)
[2021-11-08] MEDS: HYDROcodone/APAP 5 MG/325 MG (LORTAB) TAB PO PRN (20:23)
--- NOTE | 2021-11-09 05:59 | PM&R Progress Note ---
Subjective HPI/CC On Admission Date Seen by Provider: November 09, 2021 Time Seen by Provider: 10:30 Subjective/Events-last exam 11/09/2021: Pt is doing a lot better Quad cane is being used Discharge home on Bowels are moving a great deal 11/08/2021: Pt is doing well Low grade fever Mucinex is helping BP is a little bit high today Quad cane used today 11/07/2021: Patient doing well Blood sugars improved No falls Gaining strength 11/06/2021: Patient doing better No pain reported Blood sugars labile Brittle diabetes Low sugar this morning so we will adjust Levemir 11/05/2021: Had a rough night Blood sugars low so we will adjust Levemir 14 units at night to 7 units at night Very brittle diabetes which has been an ongoing issue Supportive care will continue 11/04/21: Patient doing better Sugars managed with insulin No pain reported other than chronic issue 11/03/2021: Patient doing really well today Working on stamina and strength Blood sugars very labile Patient with very brittle diabetes Restarted her long-acting insulin No pain reported except for chronic back pain Review of Systems General: Fatigue, Malaise Objective Exam Vital Signs Vital Signs Date Time Temp Pulse Resp B/P (MAP) Pulse Ox O2 Delivery O2 Flow Rate FiO2 11/09/21 21:00 95 Room Air 11/09/21 19:30 36.7 86 18 156/69 (98) Capillary Refill : General Appearance: No Apparent Distress, WD/WN, Chronically ill, Thin HEENT: PERRL/EOMI, Normal ENT Inspection, Pharynx Normal Neck: Full Range of Motion, Normal Inspection, Non Tender, Supple, Carotid Bruit Respiratory: Chest Non Tender, Lungs Clear, Normal Breath Sounds, No Accessory Muscle Use, No Respiratory Distress Cardiovascular: Regular Rate, Rhythm, No Edema, No Gallop, No JVD, No Murmur, Normal Peripheral Pulses Gastrointestinal: Normal Bowel Sounds, No Organomegaly, No Pulsatile Mass, Non Tender, Soft Back: Normal Inspection, No CVA Tenderness, No Vertebral Tenderness Extremity: Normal Capillary Refill, Normal Inspection, Normal Range of Motion, Non Tender, No Calf Tenderness, No Pedal Edema Neurologic/Psychiatric: Alert, Oriented x3, cafeteria supervisor II-XII Norm as Tested, Abnormal Gait, Depressed Affect, Motor Weakness (Generalized) Skin: Normal Color, Warm/Dry Lymphatic: No Adenopathy Results/Procedures Lab Patient resulted labs reviewed. FIM Transfers Therapy Code Descriptions/Definitions Functional [place] Measure: 0=Not Assessed/NA 4=Minimal Assistance 1=Total Assistance 5=Supervision or Setup 2=Maximal Assistance 6=Modified [place] 3=Moderate Assistance 7=Complete IndependenceSCALE: Activities may be completed with or without assistive devices. 7-Juuxnqinld-hmdduhd completes the activity by him/herself with no assistance from a helper. 5-Set-up or Clean-up Assistance-helper sets up or cleans up; patient completes activity. [place] assists only prior to or following the activity. 4-Supervision or Touching Assistance-helper provides verbal cues and/or touching/steadying and/or contact guard assistance as patient completes activity. Assistance may be provided throughout the activity or intermittently. 3-Partial/Moderate Assistance-helper does LESS THAN HALF the effort. [place] lifts, holds or supports trunk or limbs, but provides less than half the effort. 2-Substantial/Maximal Assistance-helper does MORE THAN HALF the effort. [place] lifts or holds trunk or limbs and provides more than half the effort. 9-[place] does ALL the effort. Patient does none of the effort to complete the activity. Or, the assistance of 2 or more helpers is required for the patient to complete the activity. If activity was not attempted, code reason: 7-Patient Refused. 9-Not Applicable-not attempted and the patient did not perform the activity before the current illness, exacerbation or injury. 10-Not Attempted due to Environmental Limitations-(lack of equipment, weather restraints, etc.). 88-Not Attempted due to Medical Conditions or Safety Concerns. Roll Left to Right (QC): 6 Sit to Lying (QC): 4 Sit to Stand (QC): 4 Chair/Cru-xt-Gpvrh Xfer(QC): 4 Car Transfer (QC): 4 (CGA) Gait Training Does the Patient Walk?: Yes Distance: 146' Walk 10 feet (QC): 4 Walk 50 ft with 2 Turns(QC): 4 Walk 150 ft (QC): 4 Walking 10ft/uneven surface-QC: 4 (CGA) Gait Persons Needed: 1 Gait Assistive Device: Cane Small Base Quad Wheelchair Training Does the Pt Use a Wheelchair?: No Wheel 50 ft with 2 turns (QC): 9 Wheel 150 ft (QC): 9 Stair Training 1 Step (curb) (QC): 4 (CGA) 4 Steps (QC): 4 (CGA) 12 Steps (QC): 88 Balance Picking up an Object (QC): 4 (CGA with room clerk) ADL-Treatment Eating (QC): 6 Oral Hygiene (QC): 6 Shower/Bathe Self (QC): 6 Upper Body Dressing (QC): 6 Lower Body Dressing (QC): 6 On/Off Footwear (QC): 6 Toileting Hygiene (QC): 6 Toilet Transfer (QC): 6 Assessment/Plan Assessment and Plan Assess & Plan/Chief Complaint Assessment: 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 History of C. difficile Plan: Inpatient rehab protocol Supportive care Blood sugar monitoring Monitor kidney function 11/03/2021: Supportive care Monitor closely Blood sugar management 11/04/21: Monitor sugar Therapy 11/05/2021: Supportive care continue Decrease Levemir 11/06/2021: Supportive care Monitor closely 11/07/2021: Supportive care Monitor closely 11/08/2021: Supportive care Monitor closely 11/09/2021: Supportive care Discharge home tomorrow (1) CVA (cerebral vascular accident) (2) Diabetes mellitus Status: Chronic (3) CAD (coronary artery disease) Status: Chronic (4) Hyperlipidemia Status: Chronic (5) PAD (peripheral artery disease) Status: Chronic (6) Diabetes mellitus, insulin dependent (IDDM), uncontrolled Status: Acute (7) ROSA (acute kidney injury) Status: Acute (8) COPD (chronic obstructive pulmonary disease) Status: Chronic (9) CKD (chronic kidney disease) stage 3, GFR 30-59 ml/min Status: Chronic (10) Coronary artery disease without angina pectoris (11) Primary hypertension (12) Mixed hyperlipidemia TONG MAGALLON DO November 09, 2021 05:59
[2021-11-09] MEDS: LEVOTHYROXINE 25 MCG (LEVOTHROID) TAB PO SCH (06:41)
[2021-11-09] MEDS: LEVOTHYROXINE 100 MCG (LEVOTHROID) TAB PO SCH (06:42)
[2021-11-09] MEDS: PANTOPRAZOLE 40 MG (PROTONIX) TAB PO SCH ×2 (06:43→16:08)
[2021-11-09] MEDS: inSUlin ASPART (NovoLOG) 1 UNIT/0.01 ML (CHARGE PER UNIT) SC SCH ×4 (06:45→21:01)
[2021-11-09] MEDS: UMECLIDINIUM BROMIDE (INCRUSE ELLIPTA) 7'S IH SCH (06:56)
[2021-11-09] MEDS: RT--FLUTICASONE/SALMETEROL 232-14 (AIRDUO RespiCLICK) IH SCH ×2 (07:01→20:17)
[2021-11-09 07:31] VITALS: BP 146/70
[2021-11-09] MEDS: NICOTINE 21 MG (NICODERM) PATCH TD SCH (07:32)
[2021-11-09] MEDS: CLOPIDOGREL 75 MG (PLAVIX) TABLET PO SCH (07:32)
[2021-11-09] MEDS: FOLIC ACID 1 MG TAB PO SCH (07:33)
[2021-11-09] MEDS: APIXABAN 5 MG (ELIQUIS) TABLET PO SCH ×2 (07:33→20:58)
[2021-11-09] MEDS: guaiFENesin (MUCINEX) 600 MG TAB PO SCH ×2 (07:33→20:58)
[2021-11-09] MEDS: PARoxetine 20 MG (PAXIL) TAB PO SCH (07:33)
[2021-11-09] MEDS: DOCUSATE SODIUM 100 MG (COLACE) CAP PO SCH ×2 (07:33→21:07)
[2021-11-09] MEDS: CALCITRIOL 0.25 MCG (ROCALTROL) CAPSULE PO SCH (07:33)
--- NOTE | 2021-11-09 07:53 | Occupational Ther Daily Note ---
OT Current Status-Daily Note Subjective Pt denies pain, agreeable to shower. Appearance Pt left sitting in recliner, all needs within reach. Mental Status/Objective Patient Orientation: Person, Place, Situation ADL-Treatment Therapy Code Descriptions/Definitions Functional [place] Measure: 0=Not Assessed/NA 4=Minimal Assistance 1=Total Assistance 5=Supervision or Setup 2=Maximal Assistance 6=Modified [place] 3=Moderate Assistance 7=Complete IndependenceSCALE: Activities may be completed with or without assistive devices. 7-Ojskhnmocv-sxkrbph completes the activity by him/herself with no assistance from a helper. 5-Set-up or Clean-up Assistance-helper sets up or cleans up; patient completes activity. [place] assists only prior to or following the activity. 4-Supervision or Touching Assistance-helper provides verbal cues and/or touching/steadying and/or contact guard assistance as patient completes activity. Assistance may be provided throughout the activity or intermittently. 3-Partial/Moderate Assistance-helper does LESS THAN HALF the effort. [place] lifts, holds or supports trunk or limbs, but provides less than half the effort. 2-Substantial/Maximal Assistance-helper does MORE THAN HALF the effort. [place] lifts or holds trunk or limbs and provides more than half the effort. 2-Ysvlnlemg-miboqq does ALL the effort. Patient does none of the effort to complete the activity. Or, the assistance of 2 or more helpers is required for the patient to complete the activity. If activity was not attempted, code reason: 7-Patient Refused. 9-Not Applicable-not attempted and the patient did not perform the activity before the current illness, exacerbation or injury. 10-Not Attempted due to Environmental Limitations-(lack of equipment, weather restraints, etc.). 88-Not Attempted due to Medical Conditions or Safety Concerns. Eating (QC): 6 Oral Hygiene (QC): 6 Shower/Bathe Self (QC): 6 Upper Body Dressing (QC): 6 Lower Body Dressing (QC): 6 On/Off Footwear: 6 (use of sock aid to don oscar hose) Toileting Hygiene (QC): 6 Toilet Transfer (QC): 6 Pt independently retrieved clothing and set up shower. No safety concerns observed or assist required during task. Clothing donned seated on 4WW, good safety and use of energy conservation strategies learned in past sessions. Pt able to clean up and retrieve clothing/towels from floor without LOB. Other Treatment 2nd session ([id number]): Pt participated in pvc pipe tree with focus on promoting increased activity tolerance, UE strength/ROM, and memory. Pieces placed ~15 feet away from design template. Pt able to remember 3-4 pieces at a time before having to ambulate back to template. With distractions or conversation, pt having increased difficulty recalling pieces and often had to return to re-look up what pieces she needed. Education on compensatory memory strategies such as chunking and association. Slight improvement in short term recall post education. No sitting rest break needed during activity, ~15 minutes. Pt performed Arm jessenia and UE exercises with 2# dumbbell with focus on improving shoulder strength and ROM needed for functional tasks. Pt improved to 12 reps, all planes. Seated core exercises included modified sit up, lateral leans, and leg raises; 10 x1 each. Education OT Patient Education: Correct positioning, Energy conservation, Exercise program, Progress toward Goal/Update tx plan, Purpose of tx/functional activities Teaching Recipient: Patient Teaching Methods: Discussion Response to Teaching: Verbalize Understanding, Return Demonstration OT Short Term Goals Short Term Goals Time Frame: November 09, 2021 Eatin Oral hygiene: 5 Toileting hygiene: 4 Shower/bathe self: 4 Upper body dressin Lower body dressin Putting on/taking off footwear: 5 OT Arts Administrator Goals Jail Goals Time Frame: November 14, 2021 Eating (QC): 6 (met) Oral Hygiene (QC): 6 (met) Toileting Hygiene (QC): 6 (met) Shower/Bathe Self (QC): 6 (met) Upper Body Dressing (QC): 6 (met) Lower Body Dressing (QC): 6 (met) On/Off Footwear (QC): 6 (met) 1=Demonstrate adherence to instructed precautions during ADL tasks. 2=Patient will verbalize/demonstrate understanding of assistive devices/modifications for ADL. 3=Patient will improve strength/tolerance for activity to enable patient to perform ADL's. OT Education/Plan Problem List/Assessment Assessment: Decreased Activ Tolerance, Decreased UE Strength Discharge Recommendations Plan/Recommendations: Continue POC Equpiment Recommendations-D/C: Sock Aide Treatment Plan/Plan of Care Treatment,Training & Education: Yes Patient would benefit from OT for education, treatment and training to promote independence in ADL's, mobility, safety and/or upper extremity function for ADL's. Plan of Care: ADL Retraining, Functional Mobility, Group Exercise/Act as Ind, UE Funct Exercise/Act Treatment Duration: November 14, 2021 Frequency: At least 5 of 7 days/Wk (IRF) Estimated Hrs Per Day: 1.5 hours per day (60-90 min/day ) Agreement: Yes Rehab Potential: Good Time/GCodes Start Time: 07:30 (0900) Stop Time: 08:00 (0945) Total Time Billed (hr/min): 75 Billed Treatment Time 1 visit ADL x2 (30 min) 2nd visit: FA x2 (30 min) EX (15 min) Marnie Williamson OT November 09, 2021 07:53
[2021-11-09] MEDS: NICOTINE PATCH REMOVAL TP SCH (08:46)
[2021-11-09] MEDS: SENNA W/DOCUSATE (SENOKOT S) TABLET PO SCH ×2 (08:46→21:07)
[2021-11-09] MEDS: polyethylene glycoL POWDER 17 GM (MIRALAX) PACK PO SCH ×2 (08:46→21:07)
--- NOTE | 2021-11-09 09:10 | Physical Therapy Daily Note ---
PT Daily Note-Current Subjective Upon arrival pt was seated in recliner, OT was present and finishing working the with pt. Pt agrees to PT. Pain Comment: Pt reports no pain. Mental Status Patient Orientation: Person, Place, Time, Situation, Normal For Age Transfers SCALE: Activities may be completed with or without assistive devices. 9-Yagkgtbunm-qibktev completes the activity by him/herself with no assistance from a helper. 5-Set-up or Clean-up Assistance-helper sets up or cleans up; patient completes activity. [place] assists only prior to or following the activity. 4-Supervision or Touching Assistance-helper provides verbal cues and/or touching/steadying and/or contact guard assistance as patient completes activity. Assistance may be provided throughout the activity or intermittently. 3-Partial/Moderate Assistance-helper does LESS THAN HALF the effort. [place] lifts, holds or supports trunk or limbs, but provides less than half the effort. 2-Substantial/Maximal Assistance-helper does MORE THAN HALF the effort. [place] lifts or holds trunk or limbs and provides more than half the effort. 3-Abziqvpek-mlbfoi does ALL the effort. Patient does none of the effort to complete the activity. Or, the assistance of 2 or more helpers is required for the patient to complete the activity. If activity was not attempted, code reason: 7-Patient Refused. 9-Not Applicable-not attempted and the patient did not perform the activity before the current illness, exacerbation or injury. 10-Not Attempted due to Environmental Limitations-(lack of equipment, weather restraints, etc.). 88-Not Attempted due to Medical Conditions or Safety Concerns. Sit to Stand (QC): 4 Gait Training Does the Patient Walk?: Yes Distance: 400' Walk 10 feet (QC): 4 Walk 50 ft with 2 Turns(QC): 4 Walk 150 ft (QC): 4 Gait Persons Needed: 1 Gait Assistive Device: Cane Small Base Quad Pt ambulated 400' with quad cane outside and around and lobby area. Pt had min LOB, and a few times was tripped up with cane on objects or self, but was able to gain control and self correct. Pt was able to self correct on posture as she ambulated. Wheelchair Training Does the Pt Use a Wheelchair?: No Exercises Standin way Ex=Flex, Abd, Ext, Marching Standing Reps: 10 Neuromuscular Pt performed and completed balance EXs at // bar. Pt demonstrated narrow static standing balance with little sway. Pt completed static standing balance with one foot forward (head side to side 2x, head up and down 3x). Pt demonstrated min LOB, but was able to self correct and stop her sway with the bars. Pt ambulated in // bars, without holding on to bar, with head moving side to side 3x, then up and down 2x. Treatments Pt performed and completed all EXs as listed above. Pt performed balance EXs at // bars. Pt ambulated 400' with quad cane. During PT session pts RN arrives to check on pt in gym. As PT concludes, pt was seated in recliner with call light and curtis in reach, and all needs met. Assessment Current Status: Good Progress Pt states she feels she has gotten a little better with the balance EXs. Pt would benefit from continued PT to improve on balance, GT with quad cane, strength and activity tolerance. Pt has minimal sway with balance activities. PT Short Term Goals Short Term Goals Time Frame: November 09, 2021 Roll Left & Right: 6 Sit to lyin Lying to sitting on side of be: 6 Sit to stand: 4 (SBA) Chair/det-gh-xvhqc transfer: 4 (SBA) Walk 10 feet: 4 (SBA) Walk 50 feet with two turns: 4 (SBA) Walk 150 feet: 4 (SBA) PT Senior Care Goals Stripping Machine Operator Goals PT Stripping Machine Operator Goals Time Frame: November 23, 2021 Roll Left & Right (QC): 6 Sit to Lying (QC): 6 Lying-Sitting on Side/Bed(QC): 6 Sit to Stand (QC): 6 Chair/Vny-km-Bipbu Xfer(QC): 6 Toilet Transfer (QC): 6 Car Transfer (QC): 6 Does the Patient Walk: Yes Walk 10 feet (QC): 6 Walk 50ft with 2 Turns (QC): 6 Walk 150 ft (QC): 6 Walking 10ft on Uneven Surface: 6 1 Step (curb) (QC): 6 4 Steps (QC): 6 12 Steps (QC): 88 Picking up an Object (QC): 6 Does the Pt use WC or Scooter?: No Wheel 50 feet with 2 turns (QC: 9 Type: N/A Wheel 150 feet: 9 Type: N/A PT Plan Problem List Problem List: Activity Tolerance, Functional Strength, Balance, Gait Treatment/Plan Treatment Plan: Continue Plan of Care Treatment Plan: Education, Functional Activity Pauly, Functional Strength, Group Therapy, Gait, Safety, Therapeutic Exercise, Transfers Treatment Duration: Nov 03, 2021 Frequency: At least 5 of 7 days/Wk (IRF) Estimated Hrs Per Day: 1.5 hours per day Patient and/or Family Agrees t: Yes Safety Risks/Education Patient Education: Gait Training, Correct Positioning, Safety Issues Teaching Recipient: Patient Teaching Methods: Discussion Response to Teaching: Verbalize Understanding Time/GCodes Time In: 800 Time Out: 900 Total Billed Treatment Time: 60 Total Billed Treatment 1, GT (20), NM x2 (30), EX (10) BENJAMIN SIMS PTA November 09, 2021 09:10
[2021-11-09] MEDS: HYDROcodone/APAP 5 MG/325 MG (LORTAB) TAB PO PRN ×2 (09:43→20:58)
--- NOTE | 2021-11-09 12:10 | Speech Therapy Daily Note ---
Speech Daily Progress Note Subjective Date Seen by Provider: November 09, 2021 Time Seen by Provider: 10:30 The patient was seated upright in her recliner, sleeping upon entrance to her room by the clinician. The patient woke with a verbal greeting and was agreeable to participation in the cognitive linguistic treatment session. Objective - Orientation: The patient remains independently oriented to self, location, month, day of week, date, and year. - Word List Retention: The patient was asked to recall five words to answer a specific question regarding the words immediately following. The patient demonstrated 80% accuracy (independently) and 100% accuracy with mild clinician cueing. Expression of Ideas/Wants: Expression (4) Understanding Verbal Content: Understands (4) Brief Interview-Mental Status: Yes Repetition of Three Words: Three (3) Temporal Orientation: Year: Correct (3) Temporal Orientation: Month: Accurate within 5 days(2) Temporal Orientation: Day: Correct (1) Recall : Wear to say "Sock": Yes, no cue required (2) Recall : Color: Yes, no cue required (2) Recall : Bed: Yes,no cue required (2) Memory/Recall Ability: Current season, Location of own room, Staff names and faces, That he or she is in a hsp/hsp unit Assessment Assessment Current Status: Good Progress Treatment Plan Continue Plan of Care Speech Short Term Goals Short Term Goals Short Term Goals 1. The patient will demonstrate 90% accuracy with memory exercises, independently. Time Frame-STG: Five Days. Speech Prison Goals Emergency Operator Goals 1. The patient will demonstrate improved cognitive linguistic skills for safe discharge to the least restrictive environment. Time Frame: One Week. Speech-Plan Treatment Plan Speech Therapy Treatment Plan: Continue Plan of Care Treatment Duration: Nov 03, 2021 Frequency: Modified Program (IRF) Estimated Hrs Per Day: Other Rehab Potential: Good Pt/Family Agrees to Plan: Yes Safety Risks/Education Teaching Recipient: Patient Teaching Methods: Demonstration, Discussion Response to Teaching: Return Demonstration Education Topics Provided: Internal Memory Strategies Time Speech Therapy Time In: 10:30 Speech Therapy Time Out: 11:00 Total Billed Time: 30 Billed Treatment Time MaricruzKARISHMA ELIZABETH ST November 09, 2021 12:10
--- NOTE | 2021-11-09 13:40 | Progress Note - Cardiology ---
Cardiology SOAP Progress Note Subjective: No cp or palp or syncope No n/v/d Strength gradually improving Objective: I&O/Vital Signs 11/09/21 11/09/21 11/09/21 07:01 07:31 08:14 Temp 36.4 Pulse 87 Resp 16 B/P (MAP) 146/70 (95) Pulse Ox 98 O2 Delivery Room Air Room Air Room Air Weight (Pounds): 125 Weight (Ounces): 0.0 Weight (Calculated Kilograms): 56.273760 Constitutional: AAO x 3, well-developed, other (thin) Respiratory: No accessory muscle use, No respiratory distress; chest expansion is symmetric, chest is bilaterally symmetric, lungs clear to auscultation Cardiovascular: regular rate-rhythm; No JVD; S1 and S2, systolic murmur Gastrointestional: No tender; soft, round, audible bowel sounds Extremities: no lower extremity edema bilateral Neurologic/Psychiatric: other (RUE and RLE 5/5; LUE and LLE 4/5) Skin: No rash on exposed areas, No ulcerations on exposed areas A/P: Assessment: Recent hospitalization at [facility] d/t sepsis, DKA and renal failure CVA - Acute to subacute, 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 Crenshaw's note of 10-29-21 ([facility]) - Residual LUE, LLE weakness and left sided facial droop PAF - Eliquis 5mg BID CAD, s/p CABG - Cardiac cath of 12-28-15 showed severe MVD, LVEF 60%, elevated LVEDP. CABG x 4 on 12-30-[address] Doherty at [facility]: 1. PAUL to LAD, reverse saphenous vein graft to OM2, sequential to RPDA and reverse saphenous vein graft to diagonal 2. Excision of the aortic cusp fibroelastoma - MPI of 03-15-21: no evidence of significant ischemia or infarction, LVEF 60% - Echo of 03-08-21 showed mod concentric hypertrophy. LVEF 70-75%. No regional wall motion abnormalities. Grade 2 diastolic dysfunction. Mitral valve annulus mild to mod calcified with mild to mod regurg. Mild AoV stenosis. Mod TR. PASP 50-55mmHg Right CEA on 12-30-15 at the time of CABG by Dr. Doherty - carotid u/s of Jul 2018 showed mild carotid arterial disease PAD and claudication (L>R) - S/p 7x60 mm stenting of the R common iliac (post-dilated with an 8 mm balloon) on 08/15/16 that has resulted in resolution of R leg claudication. There is two- vessel runoff in the legs with mod to severe diffuse disease - Seg pressures of September 2020: mod obstructive PAD of the R lower limb and severe distal disease of the L lower limb - Arterial doppler of 10-28-21 at [facility] showed mild to mod diffuse bilat leg calcified plaque with no acute occlusion or high-grade stenosis. The left leg arteri GI - S/P cholecystectomy COPD - managed by PCP Tobacco use (1PPD) -cessation is advised DM I - complicated by CKD 3 CKD 3 - followed by PCP who has referred her to Nephrology in [place] (Feb 2021) Hyperlipidemia - treated with atorvastatin (Dr Sanchez following blood work) Hypertension - with evidence of LVH on ECG Palpitations - Zio monitor of 06-18-17 to 07-02-17 showed very brief episodes of SVT with the fastest lasting 7 beats at 214 bpm - PAF diagnosed on an ER visit of 07/29/21 Plan: Continue current medication regimen Monitor lab from time to time Replace electrolytes as indicated THOMAS SHAW MD FACP FAC CCDS November 09, 2021 13:40
--- NOTE | 2021-11-09 13:51 | Therapy Team Discharge Summary ---
Therapy Discharge Summary Discharge Recommendations Date of Discharge Physical Therapy Roll Left to Right (QC): 6 Sit to Lying (QC): 4 Lying to Sitting/Side of Bed(Q: 6 Sit to Stand (QC): 4 Chair/Yiu-iu-Mtwsw Xfer(QC): 4 Toilet Transfer (QC): 5 Car Transfer (QC): 4 (CGA) Does the Patient Walk: Yes Mode of Locomotion: Walk Anticipated Mode of Locomotion: Walk Walk 10 feet (QC): 4 Walk 50 ft with 2 Turns(QC): 4 Walk 150 ft (QC): 4 Walking 10ft on uneven surface: 4 (CGA) Distance: 50', 50', 20', 20', 75' Gait Assistive Device: Cane Small Base Quad Does the Pt Use a Wheelchair: No Wheel 50 ft with 2 turns (QC): 9 Wheel 150 ft (QC): 9 1 Step (curb) (QC): 4 (CGA) 4 Steps (QC): 4 (CGA) 12 Steps (QC): 88 Walking Assistive Device: Walker Balance Sitting Static: Normal Balance Sitting Dynamic: Good Balance-Standing Static: Good Picking up an Object (QC): 4 (CGA with highway inspector) Occupational Therapy Decreased Activ Tolerance, Decreased UE Strength Eating (QC): 6 Oral Hygiene (QC): 6 Shower/Bathe Self (QC): 6 Upper Body Dressing (QC): 6 Lower Body Dressing (QC): 6 On/Off Footwear (QC): 6 (use of sock aid to don oscar hose) Toileting Hygiene (QC): 6 Speech-Language Pathology Expression of Ideas/Wants: Expression (4) Understanding Verbal Content: Understands (4) Brief Interview-Mental Status: Yes Repetition of Three Words: Three (3) Temporal Orientation: Year: Correct (3) Temporal Orientation: Month: Accurate within 5 days(2) Temporal Orientation: Day: Correct (1) Recall : Wear to say "Sock": Yes, no cue required (2) Recall : Color: Yes, no cue required (2) Recall : Bed: Yes,no cue required (2) Memory/Recall Ability: Current season, Location of own room, Staff names and faces, That he or she is in a hsp/hsp unit The patient met all speech pathology goals placed at the initiation of skilled treatment services. PT Chcf Goals Chcf Goals PT Disability Advocate Goals Time Frame: November 23, 2021 Roll Left to Right (QC): 6 Sit to Lying (QC): 6 Lying-Sitting on Side/Bed(QC): 6 Sit to Stand (QC): 6 Chair/Peq-ns-Qbras Xfer(QC): 6 Car Transfer (QC): 6 Does the Patient Walk: Yes Walk 10 feet (QC): 6 Walk 10ft-Uneven Surface(QC): 6 Walk 50ft with 2 Turns (QC): 6 Walk 150 ft (QC): 6 Does the Pt use WC or Scooter?: No Wheel 50 feet with 2 turns (QC: 9 1 Step (curb) (QC): 6 4 Steps (QC): 6 12 Steps (QC): 88 Picking up an Object (QC): 6 OT Disability Advocate Goals Chcf Goals Time Frame: November 14, 2021 Eating (QC): 6 (met) Oral Hygiene (QC): 6 (met) Shower/Bathe Self (QC): 6 (met) Upper Body Dressing (QC): 6 (met) Lower Body Dressing (QC): 6 (met) On/Off Footwear (QC): 6 (met) Toileting Hygiene (QC): 6 (met) Toilet/Commode Transfer (QC): 6 1=Demonstrate adherence to instructed precautions during ADL tasks. 2=Patient will verbalize/demonstrate understanding of assistive devices/modifications for ADL. 3=Patient will improve strength/tolerance for activity to enable patient to perf orm ADL's. Speech Chcf Goals Disability Advocate Goals 1. The patient will demonstrate improved cognitive linguistic skills for safe discharge to the least restrictive environment. MET Time Frame: One Week. HIPOLITO MCHUGH November 09, 2021 13:51
--- NOTE | 2021-11-09 14:11 | Physical Therapy Daily Note ---
PT Daily Note-Current Subjective Upon arrival pt was in bed. Pt agrees to PT. Pain Comment: Pt reports no pain. Mental Status Patient Orientation: Person, Place, Time, Situation, Normal For Age Transfers SCALE: Activities may be completed with or without assistive devices. 0-Bfzyrbhweu-mvbxdfp completes the activity by him/herself with no assistance from a helper. 5-Set-up or Clean-up Assistance-helper sets up or cleans up; patient completes activity. [place] assists only prior to or following the activity. 4-Supervision or Touching Assistance-helper provides verbal cues and/or touching/steadying and/or contact guard assistance as patient completes activity. Assistance may be provided throughout the activity or intermittently. 3-Partial/Moderate Assistance-helper does LESS THAN HALF the effort. [place] lifts, holds or supports trunk or limbs, but provides less than half the effort. 2-Substantial/Maximal Assistance-helper does MORE THAN HALF the effort. [place] lifts or holds trunk or limbs and provides more than half the effort. 2-Utkofinpk-txoaxr does ALL the effort. Patient does none of the effort to c omplete the activity. Or, the assistance of 2 or more helpers is required for the patient to complete the activity. If activity was not attempted, code reason: 7-Patient Refused. 9-Not Applicable-not attempted and the patient did not perform the activity before the current illness, exacerbation or injury. 10-Not Attempted due to Environmental Limitations-(lack of equipment, weather restraints, etc.). 88-Not Attempted due to Medical Conditions or Safety Concerns. Roll Left & Right (QC): 6 Sit to Lying (QC): 6 Lying to Sitting/Side of Bed(Q: 6 Sit to Stand (QC): 6 Chair/Cjk-gv-Xwlab Xfer(QC): 6 Toilet Transfer (QC): 6 Car Transfer (QC): 6 Gait Training Does the Patient Walk?: Yes Distance: 28' to car, 30' to and from gym, 16' in & out of room. 120' Walk 10 feet (QC): 4 Walk 50 ft with 2 Turns(QC): 4 Walking 10ft/uneven surface-QC: 4 Gait Assistive Device: Cane Small Base Quad Pt ambulated from room, to car, to gym and back to room with quad cane. Pt demonstrated step through GT pattern with small steps. Stair Training Stair Training: Handrails/: 1 handrail #of Steps: 4 1 Step (curb) (QC): 4 4 Steps (QC): 4 Stairs: Pattern: Reciprocal Pt ambulated up steps with reciprocal GT pattern, pt may a time or two step with step to GT pattern to slow down and make sure she was performing the task correctly. PT had one hand on gait belt for safety as pt ascended up the stairs, but not when pt descended. Balance Picking up an Object (QC): 4 Treatments Pt completed all QC for [facility]. Pt ambulated from room, to car, to gym and back to room. Assessment Current Status: Excellent Progress Pt asks PT if, she should maybe get a ramp for her house, PT states that it is up to her, if she thinks it will help with certain tasks for example, carrying groceries up her steps, then PT doesn't see anything wrong with that. Pt asked therapist is she could be ad caroline, since she is being DC. Therapist will talk to pts PT. Pt has progressed in PT very well. PT Short Term Goals Short Term Goals Time Frame: November 09, 2021 Roll Left & Right: 6 Sit to lyin Lying to sitting on side of be: 6 Sit to stand: 4 (SBA) Chair/laa-di-icooq transfer: 4 (SBA) Walk 10 feet: 4 (SBA) Walk 50 feet with two turns: 4 (SBA) Walk 150 feet: 4 (SBA) PT 21 Dealer Goals Snf Goals PT Snf Goals Time Frame: November 23, 2021 Roll Left & Right (QC): 6 Sit to Lying (QC): 6 Lying-Sitting on Side/Bed(QC): 6 Sit to Stand (QC): 6 Chair/Zgo-ip-Jiehe Xfer(QC): 6 Toilet Transfer (QC): 6 Car Transfer (QC): 6 Does the Patient Walk: Yes Walk 10 feet (QC): 6 Walk 50ft with 2 Turns (QC): 6 Walk 150 ft (QC): 6 Walking 10ft on Uneven Surface: 6 1 Step (curb) (QC): 6 4 Steps (QC): 6 12 Steps (QC): 88 Picking up an Object (QC): 6 Does the Pt use WC or Scooter?: No Wheel 50 feet with 2 turns (QC: 9 Type: N/A Wheel 150 feet: 9 Type: N/A PT Plan Treatment/Plan Treatment Plan: Continue Plan of Care Treatment Plan: Education, Functional Activity Pauly, Functional Strength, Group Therapy, Gait, Safety, Therapeutic Exercise, Transfers Treatment Duration: Nov 03, 2021 Frequency: At least 5 of 7 days/Wk (IRF) Estimated Hrs Per Day: 1.5 hours per day Patient and/or Family Agrees t: Yes Time/GCodes Time In: 1250 Time Out: 1305 Total Billed Treatment Time: 15 Total Billed Treatment 1, FA BENJAMIN SIMS OILSEED MEAT PRESSER November 09, 2021 14:11
[2021-11-09 19:30] VITALS: BP 156/69
[2021-11-09] MEDS: MONTELUKAST 10 MG (SINGULAIR) TAB PO SCH (20:58)
[2021-11-09] MEDS: lisINopril 10 MG (PRINIVIL) TABLET PO SCH (20:58)
[2021-11-10] MEDS: inSUlin ASPART (NovoLOG) 1 UNIT/0.01 ML (CHARGE PER UNIT) SC SCH (06:00)
[2021-11-10] MEDS ORDERED: INSU100V5 SQ (06:05)
--- NOTE | 2021-11-10 06:05 | Discharge Summary ---
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 History of C. difficile Plan: Inpatient rehab protocol Supportive care Blood sugar monitoring Monitor kidney function 11/03/2021: Supportive care Monitor closely Blood sugar management 11/04/21: Monitor sugar Therapy 11/05/2021: Supportive care continue Decrease Levemir 11/06/2021: Supportive care Monitor closely 11/07/2021: Supportive care Monitor closely 11/08/2021: Supportive care Monitor closely 11/09/2021: Supportive care Discharge home tomorrow (1) CVA (cerebral vascular accident) (2) Diabetes mellitus Status: Chronic (3) CAD (coronary artery disease) Status: Chronic (4) Hyperlipidemia Status: Chronic (5) PAD (peripheral artery disease) Status: Chronic (6) Diabetes mellitus, insulin dependent (IDDM), uncontrolled Status: Acute (7) ROSA (acute kidney injury) Status: Acute (8) COPD (chronic obstructive pulmonary disease) Status: Chronic (9) CKD (chronic kidney disease) stage 3, GFR 30-59 ml/min Status: Chronic (10) Coronary artery disease without angina pectoris (11) Primary hypertension (12) Mixed hyperlipidemia Discharge Summary Discharge Physical Examination Allergies: Coded Allergies: ciprofloxacin (Verified Allergy, Mild, redness and itching , 12/04/18) redness and itching at iv site Vitals & I&Os Vital Signs Date Time Temp Pulse Resp B/P (MAP) Pulse Ox O2 Delivery O2 Flow Rate FiO2 11/10/21 10:17 36.5 91 16 157/70 98 Room Air General Appearance: Alert, Oriented X3, Cooperative Respiratory: Clear to Auscultation Cardiovascular: Regular Rate Neuro: Normal Gait, Normal Speech, Strength at 5/5 X4 Ext Psych/Mental Status: Mental Status NL Hospital Course Was the Problem List Reviewed?: Yes Pt had an uneventful hospital course for 9 days when she was admitted to in- patient rehab after a long hospital course at [place] for respiratory failure and a CVA. She did very well. Blood sugars were managed accordingly. She slept well. Bowels returned back to normal. Labs remained stable. She was discharged in improved condition with outpt physical therapy. Labs (last 24 hrs) Laboratory Tests 11/02/21 14:52: White Blood Count 12.2H, Red Blood Count 3.56L, Hemoglobin 9.8L, Hematocrit 31L, Mean Corpuscular Volume 88, Mean Corpuscular Hemoglobin 28, Mean Corpuscular Hemoglobin Concent 31L, Red Cell Distribution Width 15.9H, Platelet Count 581H, Mean Platelet Volume 8.9L, Immature Granulocyte % (Auto) 1, Neutrophils (%) (Auto) 65, Lymphocytes (%) (Auto) 23, Monocytes (%) (Auto) 7, Eosinophils (%) (Auto) 3, Basophils (%) (Auto) 1, Neutrophils # (Auto) 8.0H, Lymphocytes # (Auto) 2.8, Monocytes # (Auto) 0.9, Eosinophils # (Auto) 0.4H, Basophils # (Auto) 0.1, Immature Granulocyte # (Auto) 0.2H, Sodium Level 141, Potassium Level 4.0, Chloride Level 107, Carbon Dioxide Level 23, Anion Gap 11, Blood Urea Nitrogen 29H, Creatinine 1.77H, Estimat Glomerular Filtration Rate 33, BUN/Creatinine Ratio 16, Glucose Level 52*L, Calcium Level 7.9L, Corrected Calcium 8.8, Total Bilirubin 0.2, Aspartate Amino Transf (AST/SGOT) 11, Alanine Aminotransferase (ALT/SGPT) 18, Alkaline Phosphatase 149H, Total Protein 6.3L, Albumin 2.9L 11/02/21 15:02: Glucometer 49*L 11/02/21 15:58: Glucometer 80 11/03/21 05:15: White Blood Count 9.2, Red Blood Count 3.11L, Hemoglobin 8.6L, Hematocrit 27L, Mean Corpuscular Volume 88, Mean Corpuscular Hemoglobin 28, Mean Corpuscular Hemoglobin Concent 32, Red Cell Distribution Width 15.9H, Platelet Count 526H, Mean Platelet Volume 8.9L, Immature Granulocyte % (Auto) 2, Neutrophils (%) (Auto) 64, Lymphocytes (%) (Auto) 23, Monocytes (%) (Auto) 9, Eosinophils (%) (Auto) 3, Basophils (%) (Auto) 0, Neutrophils # (Auto) 5.9, Lymphocytes # (Auto) 2.1, Monocytes # (Auto) 0.8, Eosinophils # (Auto) 0.3, Basophils # (Auto) 0.0, Immature Granulocyte # (Auto) 0.1, Sodium Level 140, Potassium Level 4.8, Chloride Level 109H, Carbon Dioxide Level 20L, Anion Gap 11, Blood Urea Nitrogen 34H, Creatinine 1.75H, Estimat Glomerular Filtration Rate 33, BUN/Creatinine Ratio 19, Glucose Level 181H, Calcium Level 7.4L, Corrected Calcium 8.8, Total Bilirubin 0.1, Aspartate Amino Transf (AST/SGOT) 10, Alanine Aminotransferase (ALT/SGPT) 9, Alkaline Phosphatase 113, Total Protein 4.9L, Albumin 2.3L 11/03/21 11:38: Glucometer 323H 11/03/21 15:51: Glucometer 453*H 11/03/21 20:38: Glucometer 484*H 11/04/21 05:38: Glucometer 277H 11/04/21 11:09: Glucometer 121H 11/04/21 16:40: Glucometer 160H 11/04/21 22:04: Glucometer 248H 11/05/21 05:49: Glucometer 55*L 11/05/21 20:10: Glucometer 198H 11/07/21 05:20: White Blood Count 9.9, Red Blood Count 3.41L, Hemoglobin 9.3L, Hematocrit 30L, Mean Corpuscular Volume 88, Mean Corpuscular Hemoglobin 27, Mean Corpuscular Hemoglobin Concent 31L, Red Cell Distribution Width 15.8H, Platelet Count 606H, Mean Platelet Volume 8.9L, Immature Granulocyte % (Auto) 1, Neutrophils (%) (Auto) 64, Lymphocytes (%) (Auto) 25, Monocytes (%) (Auto) 7, Eosinophils (%) (Auto) 2, Basophils (%) (Auto) 1, Neutrophils # (Auto) 6.4, Lymphocytes # (Auto) 2.4, Monocytes # (Auto) 0.7, Eosinophils # (Auto) 0.2, Basophils # (Auto) 0.1, Immature Granulocyte # (Auto) 0.1, Sodium Level 141, Potassium Level 4.8, Chloride Level 106, Carbon Dioxide Level 23, Anion Gap 12, Blood Urea Nitrogen 30H, Creatinine 1.45H, Estimat Glomerular Filtration Rate 41, BUN/Creatinine Ratio 21, Glucose Level 95, Calcium Level 8.2L, Corrected Calcium 9.3, Total Bilirubin 0.2, Aspartate Amino Transf (AST/SGOT) 20, Alanine Aminotransferase (ALT/SGPT) 20, Alkaline Phosphatase 158H, Total Protein 5.6L, Albumin 2.6L Pending Labs Laboratory Tests 11/02/21 14:52: White Blood Count 12.2, Red Blood Count 3.56, Hemoglobin 9.8, Hematocrit 31, Mean Corpuscular Volume 88, Mean Corpuscular Hemoglobin 28, Mean Corpuscular Hemoglobin Concent 31, Red Cell Distribution Width 15.9, Platelet Count 581, Mean Platelet Volume 8.9, Immature Granulocyte % (Auto) 1, Neutrophils (%) (Auto) 65, Lymphocytes (%) (Auto) 23, Monocytes (%) (Auto) 7, Eosinophils (%) (Auto) 3, Basophils (%) (Auto) 1, Neutrophils # (Auto) 8.0, Lymphocytes # (Auto) 2.8, Monocytes # (Auto) 0.9, Eosinophils # (Auto) 0.4, Basophils # (Auto) 0.1, Immature Granulocyte # (Auto) 0.2, Sodium Level 141, Potassium Level 4.0, Chloride Level 107, Carbon Dioxide Level 23, Anion Gap 11, Blood Urea Nitrogen 29, Creatinine 1.77, Estimat Glomerular Filtration Rate 33, BUN/Creatinine Ratio 16, Glucose Level 52, Calcium Level 7.9, Corrected Calcium 8.8, Total Bilirubin 0.2, Aspartate Amino Transf (AST/SGOT) 11, Alanine Aminotransferase (ALT/SGPT) 18, Alkaline Phosphatase 149, Total Protein 6.3, Albumin 2.9 11/02/21 15:02: Glucometer 49 11/02/21 15:58: Glucometer 80 11/03/21 05:15: White Blood Count 9.2, Red Blood Count 3.11, Hemoglobin 8.6, Hematocrit 27, Mean Corpuscular Volume 88, Mean Corpuscular Hemoglobin 28, Mean Corpuscular Hemoglobin Concent 32, Red Cell Distribution Width 15.9, Platelet Count 526, Mean Platelet Volume 8.9, Immature Granulocyte % (Auto) 2, Neutrophils (%) (Auto) 64, Lymphocytes (%) (Auto) 23, Monocytes (%) (Auto) 9, Eosinophils (%) (Auto) 3, Basophils (%) (Auto) 0, Neutrophils # (Auto) 5.9, Lymphocytes # (Auto) 2.1, Monocytes # (Auto) 0.8, Eosinophils # (Auto) 0.3, Basophils # (Auto) 0.0, Immature Granulocyte # (Auto) 0.1, Sodium Level 140, Potassium Level 4.8, Chloride Level 109, Carbon Dioxide Level 20, Anion Gap 11, Blood Urea Nitrogen 34, Creatinine 1.75, Estimat Glomerular Filtration Rate 33, BUN/Creatinine Ratio 19, Glucose Level 181, Calcium Level 7.4, Corrected Calcium 8.8, Total Bilirubin 0.1, Aspartate Amino Transf (AST/SGOT) 10, Alanine Aminotransferase (ALT/SGPT) 9, Alkaline Phosphatase 113, Total Protein 4.9, Albumin 2.3 11/03/21 11:38: Glucometer 323 11/03/21 15:51: Glucometer 453 11/03/21 20:38: Glucometer 484 11/04/21 05:38: Glucometer 277 11/04/21 11:09: Glucometer 121 11/04/21 16:40: Glucometer 160 11/04/21 22:04: Glucometer 248 11/05/21 05:49: Glucometer 55 11/05/21 20:10: Glucometer 198 11/07/21 05:20: White Blood Count 9.9, Red Blood Count 3.41, Hemoglobin 9.3, Hematocrit 30, Mean Corpuscular Volume 88, Mean Corpuscular Hemoglobin 27, Mean Corpuscular Hemoglobin Concent 31, Red Cell Distribution Width 15.8, Platelet Count 606, Mean Platelet Volume 8.9, Immature Granulocyte % (Auto) 1, Neutrophils (%) (Auto) 64, Lymphocytes (%) (Auto) 25, Monocytes (%) (Auto) 7, Eosinophils (%) (Auto) 2, Basophils (%) (Auto) 1, Neutrophils # (Auto) 6.4, Lymphocytes # (Auto) 2.4, Monocytes # (Auto) 0.7, Eosinophils # (Auto) 0.2, Basophils # (Auto) 0.1, Immature Granulocyte # (Auto) 0.1, Sodium Level 141, Potassium Level 4.8, Chloride Level 106, Carbon Dioxide Level 23, Anion Gap 12, Blood Urea Nitrogen 30, Creatinine 1.45, Estimat Glomerular Filtration Rate 41, BUN/Creatinine Ratio 21, Glucose Level 95, Calcium Level 8.2, Corrected Calcium 9.3, Total Bilirubin 0.2, Aspartate Amino Transf (AST/SGOT) 20, Alanine Aminotransferase (ALT/SGPT) 20, Alkaline Phosphatase 158, Total Protein 5.6, Albumin 2.6 Discharge Home Medications: Active Scripts Active Levemir (Insulin Determir) 1,000 Units/10 Ml Soln 7 Units SQ HS 14 Days Reported Buspirone HCl 5 Mg Tablet 5 Mg PO BID LAST FILLED 05-24-2021 #60/30 DAY SUPPLY Levemir (Insulin Determir) 100 Unit/Ml Soln 16 Units SQ DAILY Diltiazem 24Hr ER (Diltiazem HCl) 240 Mg Cap.er.24h 240 Mg PO HS Levothyroxine Sodium 200 Mcg Tablet 200 Mcg PO DAILY TAKES 25MCG +200MCG TOGETHER TO EQUAL 225MCG Levothyroxine Sodium 25 Mcg Tablet 25 Mcg PO DAILY TAKES 25MCG +200MCG TOGETHER TO EQUAL 225MCG Proair Hfa (Albuterol Sulfate) 1 Puff Puff 2 Puff IH Q4H PRN Meclizine HCl 12.5 Mg Tablet 12.5 Mg PO Q6H PRN Folic Acid 1 Mg Tablet 1 Mg PO DAILY Eliquis (Apixaban) 5 Mg Tablet 5 Mg PO BID Trelegy Ellipta 100-62.5-25 (Fluticasone/Umeclidin/Vilanter) 1 Each Blst.w.dev 1 Each IH DAILY Calcitriol 0.25 Mcg Capsule 0.25 Mcg PO HS Montelukast Sodium 10 Mg Tablet 10 Mg PO HS LAST FILLED 05-24-2022 #60/60 DAY SUPPLY Lisinopril 20 Mg Tablet 10 Mg PO HS LAST FILLED 05-24-2022 #30/30 DAY SUPPLY Atorvastatin Calcium 40 Mg Tablet 40 Mg PO HS LAST FILLED 05-24-2022 #60/60 DAY SUPPLY Insulin Aspart 100 Unit/1 Ml Vial Units SC AC Pantoprazole Sodium 40 Mg Tablet.dr 40 Mg PO BID LAST FILLED 05-24-2022 #180/90 DAY SUPPLY Clopidogrel (Clopidogrel Bisulfate) 75 Mg Tablet 75 Mg PO DAILY Gabapentin 100 Mg Capsule 100 Mg PO HS PRN LAST FILLED 05-24-2022 #30/30 DAY SUPPLY Paroxetine HCl 40 Mg Tablet 40 Mg PO DAILY LAST FILLED 05-24-2022 #60/60 DAY SUPPLY Instructions to patient/family Please see electronic discharge instructions given to patient. Diagnosis/Problems Diagnosis/Problems (1) CVA (cerebral vascular accident) (2) Diabetes mellitus Status: Chronic (3) CAD (coronary artery disease) Status: Chronic (4) Hyperlipidemia Status: Chronic (5) PAD (peripheral artery disease) Status: Chronic (6) Diabetes mellitus, insulin dependent (IDDM), uncontrolled Status: Acute (7) ROSA (acute kidney injury) Status: Acute (8) COPD (chronic obstructive pulmonary disease) Status: Chronic (9) CKD (chronic kidney disease) stage 3, GFR 30-59 ml/min Status: Chronic (10) Coronary artery disease without angina pectoris (11) Primary hypertension (12) Mixed hyperlipidemia TONG MAGALLON DO November 10, 2021 06:05
[2021-11-10] MEDS: LEVOTHYROXINE 100 MCG (LEVOTHROID) TAB PO SCH (06:27)
[2021-11-10] MEDS: LEVOTHYROXINE 25 MCG (LEVOTHROID) TAB PO SCH (06:27)
[2021-11-10] MEDS: PANTOPRAZOLE 40 MG (PROTONIX) TAB PO SCH (07:05)
[2021-11-10 07:12] VITALS: BP 189/81
[2021-11-10 07:20] VITALS: BP 196/82
[2021-11-10] MEDS: CALCITRIOL 0.25 MCG (ROCALTROL) CAPSULE PO SCH (07:51)
[2021-11-10] MEDS: FOLIC ACID 1 MG TAB PO SCH (07:51)
[2021-11-10] MEDS: CLOPIDOGREL 75 MG (PLAVIX) TABLET PO SCH (07:51)
[2021-11-10] MEDS: guaiFENesin (MUCINEX) 600 MG TAB PO SCH (07:51)
[2021-11-10] MEDS: PARoxetine 20 MG (PAXIL) TAB PO SCH (07:51)
[2021-11-10] MEDS: APIXABAN 5 MG (ELIQUIS) TABLET PO SCH (07:51)
[2021-11-10] MEDS: NICOTINE 21 MG (NICODERM) PATCH TD SCH (07:53)
[2021-11-10] MEDS: SENNA W/DOCUSATE (SENOKOT S) TABLET PO SCH (07:53)
[2021-11-10] MEDS: RT--FLUTICASONE/SALMETEROL 232-14 (AIRDUO RespiCLICK) IH SCH (07:54)
[2021-11-10] MEDS: polyethylene glycoL POWDER 17 GM (MIRALAX) PACK PO SCH (07:54)
[2021-11-10] MEDS: UMECLIDINIUM BROMIDE (INCRUSE ELLIPTA) 7'S IH SCH (07:54)
[2021-11-10] MEDS: DOCUSATE SODIUM 100 MG (COLACE) CAP PO SCH (07:54)
[2021-11-10] MEDS: NICOTINE PATCH REMOVAL TP SCH (07:57)
--- NOTE | 2021-11-10 08:16 | Therapy Team Discharge Summary ---
Therapy Discharge Summary Discharge Recommendations Date of Discharge Physical Therapy Patient came to rehab following a CVA. Upon evaluation patient performed rolling and supine <-> sit with independence, sit <-> stand and transfers with CGA, car transfer CGA, ambulated 75' with a rolling walker with CGA (including 50' with at least 2 turns of 90 degrees and 10' over an uneven surface), went up and down 4 steps using 2 handrails with CGA, and picked up an object from the floor with CGA using a hand bookbinder. Patient has been performing bed mobility and transfer training, balance and endurance training, functional strengthening, stair training, gait training, and education. Patient has made some progress but has only met her chcf goals for bed mobility and transfers. Now, patient performs rolling and supine <-> sit with independence, sit <-> stand and transfers independent, car transfer independent, ambulates 120' with a quad cane with CGA (including 50' with at least 2 turns of 90 degrees and 10' over an uneven surface), can go up and down 4 steps using 1 handrail with CGA, and can cook pickled meat an object from the floor with CGA. Patient is being discharged from this facility today and will be discharged from PT at this time. Roll Left to Right (QC): 6 Sit to Lying (QC): 6 Lying to Sitting/Side of Bed(Q: 6 Sit to Stand (QC): 6 Chair/Qnj-fg-Ouvge Xfer(QC): 6 Toilet Transfer (QC): 5 Car Transfer (QC): 6 Does the Patient Walk: Yes Mode of Locomotion: Walk Anticipated Mode of Locomotion: Walk Walk 10 feet (QC): 4 Walk 50 ft with 2 Turns(QC): 4 Walk 150 ft (QC): 4 Walking 10ft on uneven surface: 4 Distance: 50', 50', 20', 20', 75' Gait Assistive Device: Cane Small Base Quad Does the Pt Use a Wheelchair: No Wheel 50 ft with 2 turns (QC): 9 Wheel 150 ft (QC): 9 #of Steps: 4 1 Step (curb) (QC): 4 4 Steps (QC): 4 12 Steps (QC): 88 Walking Assistive Device: Walker Balance Sitting Static: Normal Balance Sitting Dynamic: Good Balance-Standing Static: Good Picking up an Object (QC): 4 Occupational Therapy Decreased Activ Tolerance, Decreased UE Strength Eating (QC): 6 Oral Hygiene (QC): 6 Shower/Bathe Self (QC): 6 Upper Body Dressing (QC): 6 Lower Body Dressing (QC): 6 On/Off Footwear (QC): 6 (use of sock aid to don oscar hose) Toileting Hygiene (QC): 6 PT Residential Goals Assistant Principal Goals PT Assistant Principal Goals Time Frame: November 23, 2021 Roll Left to Right (QC): 6 Sit to Lying (QC): 6 Lying-Sitting on Side/Bed(QC): 6 Sit to Stand (QC): 6 Chair/Otm-cn-Amgoj Xfer(QC): 6 Car Transfer (QC): 6 Does the Patient Walk: Yes Walk 10 feet (QC): 6 Walk 10ft-Uneven Surface(QC): 6 Walk 50ft with 2 Turns (QC): 6 Walk 150 ft (QC): 6 Does the Pt use WC or Scooter?: No Wheel 50 feet with 2 turns (QC: 9 1 Step (curb) (QC): 6 4 Steps (QC): 6 12 Steps (QC): 88 Picking up an Object (QC): 6 OT Assistant Principal Goals Assistant Principal Goals Time Frame: November 14, 2021 Eating (QC): 6 (met) Oral Hygiene (QC): 6 (met) Shower/Bathe Self (QC): 6 (met) Upper Body Dressing (QC): 6 (met) Lower Body Dressing (QC): 6 (met) On/Off Footwear (QC): 6 (met) Toileting Hygiene (QC): 6 (met) Toilet/Commode Transfer (QC): 6 1=Demonstrate adherence to instructed precautions during ADL tasks. 2=Patient will verbalize/demonstrate understanding of assistive device s/modifications for ADL. 3=Patient will improve strength/tolerance for activity to enable patient to perform ADL's. Speech Assistant Principal Goals Residential Goals 1. The patient will demonstrate improved cognitive linguistic skills for safe discharge to the least restrictive environment. MET Time Frame: One Week. MARY ANDREWS PT November 10, 2021 08:16
[2021-11-10 08:20] VITALS: BP 157/70
--- NOTE | 2021-11-10 09:25 | Progress Note - Cardiology ---
Cardiology SOAP Progress Note Subjective: Sitting up on the side of the bed States going home today No c/o CP, palpitations or SOB Objective: I&O/Vital Signs 11/10/21 11/10/21 11/10/21 11/10/21 07:12 07:20 07:54 07:58 Temp 36.5 Pulse 89 90 Resp 16 B/P (MAP) 189/81 (117) 196/82 (120) Pulse Ox 97 98 O2 Delivery Room Air Room Air Room Air 11/10/21 11/10/21 08:20 08:23 Pulse 91 B/P (MAP) 157/70 (99) O2 Delivery Room Air Weight (Pounds): 125 Weight (Ounces): 0.0 Weight (Calculated Kilograms): 56.731374 Constitutional: AAO x 3, well-developed, other (thin) Respiratory: No accessory muscle use, No respiratory distress; chest expansion is symmetric, chest is bilaterally symmetric, lungs clear to auscultation Cardiovascular: regular rate-rhythm; No JVD; S1 and S2, systolic murmur Gastrointestional: No tender; soft, round, audible bowel sounds Extremities: no lower extremity edema bilateral Neurologic/Psychiatric: other (RUE and RLE 5/5; LUE and LLE 4/5) Skin: No rash on exposed areas, No ulcerations on exposed areas A/P: Assessment: Recent hospitalization at [facility] d/t sepsis, DKA and renal failure CVA - Acute to subacute, 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 Crenshaw's note of 10-29-21 ([facility]) - Residual LUE, LLE weakness and left sided facial droop PAF - Eliquis 5mg BID CAD, s/p CABG - Cardiac cath of 12-28-15 showed severe MVD, LVEF 60%, elevated LVEDP. CABG x [address] on 12-30-[address] Doherty at [facility]: 1. PAUL to LAD, reverse saphenous vein graft to OM2, sequential to RPDA and reverse saphenous vein graft to diagonal 2. Excision of the aortic cusp fibroelastoma - MPI of 03-15-21: no evidence of significant ischemia or infarction, LVEF 60% - Echo of 03-08-21 showed mod concentric hypertrophy. LVEF 70-75%. No regional wall motion abnormalities. Grade 2 diastolic dysfunction. Mitral valve annulus mild to mod calcified with mild to mod regurg. Mild AoV stenosis. Mod TR. PASP 50-55mmHg Right CEA on 12-30-15 at the time of CABG by Dr. Doherty - carotid u/s of Jul 2018 showed mild carotid arterial disease PAD and claudication (L>R) - S/p 7x60 mm stenting of the R common iliac (post-dilated with an 8 mm balloon) on 08/15/16 that has resulted in resolution of R leg claudication. There is two- vessel runoff in the legs with mod to severe diffuse disease - Seg pressures of September 2020: mod obstructive PAD of the R lower limb and severe distal disease of the L lower limb - Arterial doppler of 10-28-21 at [facility] showed mild to mod diffuse bilat leg calcified plaque with no acute occlusion or high-grade stenosis. The left leg arteri GI - S/P cholecystectomy COPD - managed by PCP Tobacco use (1PPD) -cessation is advised DM I - complicated by CKD 3 CKD 3 - followed by PCP who has referred her to Nephrology in [place] (Feb 2021) Hyperlipidemia - treated with atorvastatin (Dr Sanchez following blood work) Hypertension - with evidence of LVH on ECG Palpitations - Zio monitor of 06-18-17 to 07-02-17 showed very brief episodes of SVT with the fastest lasting 7 beats at 214 bpm - PAF diagnosed on an ER visit of 07/29/21 Plan: Continue current medication regimen Advise out pt f/u in 2 weeks in our office ARNEL ZHOU November 10, 2021 09:25
--- NOTE | 2021-11-10 09:46 | Progress Note - Cardiology ---
Cardiology SOAP Progress Note Subjective: No cp or palp or syncope or shortness of breath No new symptoms Objective: I&O/Vital Signs 11/10/21 11/10/21 11/10/21 11/10/21 07:12 07:20 07:54 07:58 Temp 36.5 Pulse 89 90 Resp 16 B/P (MAP) 189/81 (117) 196/82 (120) Pulse Ox 97 98 O2 Delivery Room Air Room Air Room Air 11/10/21 11/10/21 08:20 08:23 Pulse 91 B/P (MAP) 157/70 (99) O2 Delivery Room Air Weight (Pounds): 125 Weight (Ounces): 0.0 Weight (Calculated Kilograms): 56.756340 Constitutional: AAO x 3, well-developed, other (thin) Respiratory: No accessory muscle use, No respiratory distress; chest expansion is symmetric, chest is bilaterally symmetric, lungs clear to auscultation Cardiovascular: regular rate-rhythm; No JVD; S1 and S2, systolic murmur Gastrointestional: No tender; soft, round, audible bowel sounds Extremities: no lower extremity edema bilateral Neurologic/Psychiatric: other (RUE and RLE 5/5; LUE and LLE 4/5) Skin: No rash on exposed areas, No ulcerations on exposed areas A/P: Assessment: Recent hospitalization at [facility] d/t sepsis, DKA and renal failure CVA - Acute to subacute, 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 Crenshaw's note of 10-29-21 ([facility]) - Residual LUE, LLE weakness and left sided facial droop PAF - Eliquis 5mg BID CAD, s/p CABG - Cardiac cath of 12-28-15 showed severe MVD, LVEF 60%, elevated LVEDP. CABG x [address] on 12-30-[address] Doherty at [facility]: 1. PAUL to LAD, reverse saphenous vein graft to OM2, sequential to RPDA and reverse saphenous vein graft to diag onal 2. Excision of the aortic cusp fibroelastoma - MPI of 03-15-21: no evidence of significant ischemia or infarction, LVEF 60% - Echo of 03-08-21 showed mod concentric hypertrophy. LVEF 70-75%. No regional wall motion abnormalities. Grade 2 diastolic dysfunction. Mitral valve annulus mild to mod calcified with mild to mod regurg. Mild AoV stenosis. Mod TR. PASP 50-55mmHg Right CEA on 12-30-15 at the time of CABG by Dr. Doherty - carotid u/s of Jul 2018 showed mild carotid arterial disease PAD and claudication (L>R) - S/p 7x60 mm stenting of the R common iliac (post-dilated with an 8 mm balloon) on 08/15/16 that has resulted in resolution of R leg claudication. There is two- vessel runoff in the legs with mod to severe diffuse disease - Seg pressures of September 2020: mod obstructive PAD of the R lower limb and severe distal disease of the L lower limb - Arterial doppler of 10-28-21 at [facility] showed mild to mod diffuse bilat leg calcified plaque with no acute occlusion or high-grade stenosis. The left leg arteri GI - S/P cholecystectomy COPD - managed by PCP Tobacco use (1PPD) -cessation is advised DM I - complicated by CKD 3 CKD 3 - followed by PCP who has referred her to Nephrology in [place] (Feb 2021) Hyperlipidemia - treated with atorvastatin (Dr Sanchez following blood work) Hypertension - with evidence of LVH on ECG Palpitations - Zio monitor of 06-18-17 to 07-02-17 showed very brief episodes of SVT with the fastest lasting 7 beats at 214 bpm - PAF diagnosed on an ER visit of 07/29/21 Plan: Continue current medication regimen Advise out pt f/u in 2 weeks in our office THOMAS SHAW MD FACP [facility] November 10, 2021 09:46
--- NOTE | 2021-11-10 09:56 | Therapy Team Discharge Summary ---
Therapy Discharge Summary Discharge Recommendations Date of Discharge Physical Therapy Additional treatment to establish safety with the quad cane. Patient ambulates 150 feet with quad cane in right UE, with [place] and improved gait from the onset of quad cane use. Patient continues to demonstrate mildly narrow ZULAY and shortened stride length, however no arleth loss of balance. Patient ascends/descends 4 steps x 3 reps with bilateral handrails. She reports she is able to use both handrails at home to enter her house. Patient in bed post treatment with friend in room, all needs met, nurse notified and call light in hand. Roll Left to Right (QC): 6 Sit to Lying (QC): 6 Lying to Sitting/Side of Bed(Q: 6 Sit to Stand (QC): 6 Chair/Jix-cs-Aduqr Xfer(QC): 6 Toilet Transfer (QC): 5 Car Transfer (QC): 6 Does the Patient Walk: Yes Mode of Locomotion: Walk Anticipated Mode of Locomotion: Walk Walk 10 feet (QC): 6 Walk 50 ft with 2 Turns(QC): 6 Walk 150 ft (QC): 6 Walking 10ft on uneven surface: 4 Distance: 150 feet Gait Assistive Device: Cane Small Base Quad Does the Pt Use a Wheelchair: No Wheel 50 ft with 2 turns (QC): 9 Wheel 150 ft (QC): 9 #of Steps: 12 1 Step (curb) (QC): 6 4 Steps (QC): 6 12 Steps (QC): 6 Balance Sitting Static: Normal Balance Sitting Dynamic: Good Balance-Standing Static: Good Picking up an Object (QC): 4 Occupational Therapy Decreased Activ Tolerance, Decreased UE Strength Eating (QC): 6 Oral Hygiene (QC): 6 Shower/Bathe Self (QC): 6 Upper Body Dressing (QC): 6 Lower Body Dressing (QC): 6 On/Off Footwear (QC): 6 (use of sock aid to don oscar hose) Toileting Hygiene (QC): 6 PT Clinical Mental Health Counselor Goals [facility] Goals PT Clinical Mental Health Counselor Goals Time Frame: November 23, 2021 Roll Left to Right (QC): 6 Sit to Lying (QC): 6 Lying-Sitting on Side/Bed(QC): 6 Sit to Stand (QC): 6 Chair/Isb-ew-Bvavy Xfer(QC): 6 Car Transfer (QC): 6 Does the Patient Walk: Yes Walk 10 feet (QC): 6 Walk 10ft-Uneven Surface(QC): 6 Walk 50ft with 2 Turns (QC): 6 Walk 150 ft (QC): 6 Does the Pt use WC or Scooter?: No Wheel 50 feet with 2 turns (QC: 9 1 Step (curb) (QC): 6 4 Steps (QC): 6 12 Steps (QC): 88 Picking up an Object (QC): 6 OT [facility] Goals [facility] Goals Time Frame: November 14, 2021 Eating (QC): 6 (met) Oral Hygiene (QC): 6 (met) Shower/Bathe Self (QC): 6 (met) Upper Body Dressing (QC): 6 (met) Lower Body Dressing (QC): 6 (met) On/Off Footwear (QC): 6 (met) Toileting Hygiene (QC): 6 (met) Toilet/Commode Transfer (QC): 6 1=Demonstrate adherence to instructed precautions during ADL tasks. 2=Patient will verbalize/demonstrate understanding of assistive devices/modifications for ADL. 3=Patient will improve strength/tolerance for activity to enable patient to perform ADL's. Speech Clinical Mental Health Counselor Goals Clinical Mental Health Counselor Goals 1. The patient will demonstrate improved cognitive linguistic skills for safe discharge to the least restrictive environment. MET Time Frame: One Week. PILLO THOMPSON PT November 10, 2021 09:56
[2021-11-10 10:17] VITALS: BP 157/70
--- NOTE | 2021-11-10 12:56 | Therapy Team Discharge Summary ---
Therapy Discharge Summary Discharge Recommendations Date of Discharge November 10, 2021 at 10:15 Therapy D/C Recommendations: Home w/ Family Support Physical Therapy Roll Left to Right (QC): 6 Sit to Lying (QC): 6 Lying to Sitting/Side of Bed(Q: 6 Sit to Stand (QC): 6 Chair/Qjd-qc-Qybgv Xfer(QC): 6 Toilet Transfer (QC): 5 Car Transfer (QC): 6 Does the Patient Walk: Yes Mode of Locomotion: Walk Anticipated Mode of Locomotion: Walk Walk 10 feet (QC): 6 Walk 50 ft with 2 Turns(QC): 6 Walk 150 ft (QC): 6 Walking 10ft on uneven surface: 4 Distance: 150 feet Gait Assistive Device: Cane Small Base Quad Does the Pt Use a Wheelchair: No Wheel 50 ft with 2 turns (QC): 9 Wheel 150 ft (QC): 9 #of Steps: 12 1 Step (curb) (QC): 6 4 Steps (QC): 6 12 Steps (QC): 6 Balance Sitting Static: Normal Balance Sitting Dynamic: Good Balance-Standing Static: Good Picking up an Object (QC): 4 Occupational Therapy Patient came to rehab following a CVA. At time of evaluation, pt was CGA for toileting, footwear, lower body dressing, bathing, and oral care, set up for upper body dressing, and indep with eating.During her rehab stay, OT focused on safety, endurance, UE strength, balance, energy conservation, DME, adaptive strategies, and cognition in order to promote increased safety and independence with adls and functional mobility. Pt made good progress and met all of her usp goals. See below for current levels of assist. Patient is being discharged from this facility today and will be discharged from OT at this time. Decreased Activ Tolerance, Decreased UE Strength Eating (QC): 6 Oral Hygiene (QC): 6 Shower/Bathe Self (QC): 6 Upper Body Dressing (QC): 6 Lower Body Dressing (QC): 6 On/Off Footwear (QC): 6 (use of sock aid to don oscar hose) Toileting Hygiene (QC): 6 PT [facility] Goals [employer] Goals PT [employer] Goals Time Frame: November 23, 2021 Roll Left to Right (QC): 6 Sit to Lying (QC): 6 Lying-Sitting on Side/Bed(QC): 6 Sit to Stand (QC): 6 Chair/Xqf-lm-Jphuk Xfer(QC): 6 Car Transfer (QC): 6 Does the Patient Walk: Yes Walk 10 feet (QC): 6 Walk 10ft-Uneven Surface(QC): 6 Walk 50ft with 2 Turns (QC): 6 Walk 150 ft (QC): 6 Does the Pt use WC or Scooter?: No Wheel 50 feet with 2 turns (QC: 9 1 Step (curb) (QC): 6 4 Steps (QC): 6 12 Steps (QC): 88 Picking up an Object (QC): 6 OT [employer] Goals [employer] Goals Time Frame: November 14, 2021 Eating (QC): 6 (met) Oral Hygiene (QC): 6 (met) Shower/Bathe Self (QC): 6 (met) Upper Body Dressing (QC): 6 (met) Lower Body Dressing (QC): 6 (met) On/Off Footwear (QC): 6 (met) Toileting Hygiene (QC): 6 (met) Toilet/Commode Transfer (QC): 6 1=Demonstrate adherence to instructed precautions during ADL tasks. 2=Patient will verbalize/demonstrate understanding of assistive devices/modific ations for ADL. 3=Patient will improve strength/tolerance for activity to enable patient to perform ADL's. Speech [employer] Goals [facility] Goals 1. The patient will demonstrate improved cognitive linguistic skills for safe discharge to the least restrictive environment. MET Time Frame: One Week. aMrnie Williamson OT November 10, 2021 12:56
== END 2021-11-10 10:15 | disposition home or self-care (01) | DRG 92 ==
PROVIDERS: ADMIT Internal Medicine; ATTEND Internal Medicine
DX: G72.81 Critical illness myopathy (principal); I69.354 Hemiplegia and hemiparesis following cerebral infarction affecting left non-dominant side; I69.392 Facial weakness following cerebral infarction; Z91.81 History of falling; I48.0 Paroxysmal atrial fibrillation; J44.9 Chronic obstructive pulmonary disease, unspecified; I25.10 Atherosclerotic heart disease of native coronary artery without angina pectoris; E10.65 Type 1 diabetes mellitus with hyperglycemia; E10.649 Type 1 diabetes mellitus with hypoglycemia without coma; E78.00 Pure hypercholesterolemia, unspecified; E78.2 Mixed hyperlipidemia; I12.9 Hypertensive chronic kidney disease with stage 1 through stage 4 chronic kidney disease, or unspecified chronic kidney disease; E10.22 Type 1 diabetes mellitus with diabetic chronic kidney disease; N18.30 Chronic kidney disease, stage 3 unspecified; E10.40 Type 1 diabetes mellitus with diabetic neuropathy, unspecified; I08.3 Combined rheumatic disorders of mitral, aortic and tricuspid valves; K21.9 Gastro-esophageal reflux disease without esophagitis; E89.0 Postprocedural hypothyroidism; F17.210 Nicotine dependence, cigarettes, uncomplicated; I70.203 Unspecified atherosclerosis of native arteries of extremities, bilateral legs; D64.9 Anemia, unspecified; F41.9 Anxiety disorder, unspecified; F32.A Depression, unspecified; M54.9 Dorsalgia, unspecified; Z79.4 Long term (current) use of insulin; Z95.1 Presence of aortocoronary bypass graft; Z95.820 Peripheral vascular angioplasty status with implants and grafts; Z79.01 Long term (current) use of anticoagulants; Z79.82 Long term (current) use of aspirin; Z83.3 Family history of diabetes mellitus; Z82.49 Family history of ischemic heart disease and other diseases of the circulatory system; Z88.1 Allergy status to other antibiotic agents; Z98.1 Arthrodesis status
CPT/HCPCS: 36415; 80053; 82947; 85025; 94640; 94664; 94760

== ENCOUNTER 2021-11-15 09:11 | Observation (INO) | payer OTHER ==
[~2021-11-15] VITALS: Ht 165 cm; Wt 53.0 kg
[2021-11-15] VITALS (8 sets, daily range): BP systolic 126–177; BP diastolic 71–95
[~2021-11-15 09:11] MED LIST changes: +APIX5TAB PO; +FOLI1TAB33 PO; +LEVO200T6 PO; +LEVO25TA5 PO
[2021-11-15] MEDS ORDERED: NS IV 500 ML 500 ML IV ONE ×2 (09:30→10:00)
--- NOTE | 2021-11-15 09:33 | ED Cardiac General ---
History of Present Illness General Chief Complaint: Cardiac/General Problems Stated Complaint: AFIB Nursing Triage Note: SENT OVER FROM DR OFFICE WITH AFIB WITH RVR. PT STATES SHE FEELS SOA AND IS TIRED. Source: patient Exam Limitations: no limitations History of Present Illness Date Seen by Provider: November 15, 2021 Time Seen by Provider: 09:16 Initial Comments Patient to the ER from Dr. Mahmood's clinic with chief complaint of shortness of air and paroxysmal atrial fibrillation and rapid ventricular response. Patient states she has been having a rapid heart rate since Sunday, 2 days ago upwards of 180. She has an occasional productive cough. She did finish her antibiotics for pneumonia recently. She got out of rehab inpatient about a week ago after hospitalization for stroke, DKA and pneumonia at [place], [place]. She was doing her follow-up appointment this morning when it was discovered she was in A. fib with RVR. She has a history of paroxysmal atrial fibrillation. She is taking her medications as prescribed, Cardizem 240 mg at night and Eliquis 5 mg twice daily. She has not had her Eliquis or any of her morning medicines yet. Her blood sugars have been running in the 200-300 range. She is not having any chest pain, fevers, nausea or paresthesias. Patient followed by Dr. Juan R Mahmood, PCP and cardiology Dr. Jeffries with a history of paroxysmal atrial fibrillation, carotid stenosis, peripheral arterial disease, diabetes on insulin, hypertension, hyperlipidemia. Echocardiogram February 2021 showed moderate, concentric hypertrophy and EF of 70 to 75% and grade 2 diastolic dysfunction. Allergies and Home Medications Allergies Coded Allergies: ciprofloxacin (Verified Allergy, Mild, redness and itching , 12/04/18) redness and itching at iv site Patient Home Medication List Home Medication List Reviewed: Yes Albuterol Sulfate (Proair Hfa) 1 Puff Puff, 2 PUFF IH Q4H PRN for SHORTNESS OF BREATH, (Reported) Entered as Reported by: JUAN R PEDROZA on 11/02/21 164 Apixaban (Eliquis) 5 Mg Tablet, 5 MG PO BID, (Reported) Entered as Reported by: JUAN R PEDROZA on 11/02/21 1647 Atorvastatin Calcium (Atorvastatin Calcium) 40 Mg Tablet, 40 MG PO HS, (Reported) Entered as Reported by: JUAN R PEDROZA on 11/09/20 1153 Buspirone HCl (Buspirone HCl) 5 Mg Tablet, 5 MG PO BID, (Reported) Entered as Reported by: JUAN R PEDROZA on 11/04/21 1148 Calcitriol (Calcitriol) 0.25 Mcg Capsule, 0.25 MCG PO HS, (Reported) Entered as Reported by: ERROL DAVIS on 07/30/21 033 Clopidogrel Bisulfate (Clopidogrel) 75 Mg Tablet, 75 MG PO DAILY, (Reported) Entered as Reported by: JUAN R PEDROZA on 09/03/20 1559 Diltiazem HCl (Diltiazem 24Hr ER) 240 Mg Cap.er.24h, 240 MG PO HS, (Reported) Entered as Reported by: JUAN R PEDROZA on 11/02/21 164 Fluticasone/Umeclidin/Vilanter (Trelegy Ellipta 100-62.5-25) 1 Each Blst.w.dev, 1 EACH IH DAILY, (Reported) Entered as Reported by: ERROL DAVIS on 07/30/21 033 Folic Acid (Folic Acid) 1 Mg Tablet, 1 MG PO DAILY, (Reported) Entered as Reported by: JUAN R PEDROZA on 11/02/21 164 Gabapentin (Gabapentin) 100 Mg Capsule, 100 MG PO HS PRN for PAIN-BREAKTHROUGH, (Reported) Entered as Reported by: EFE PATTERSON on 12/20/15 1348 Insulin Aspart (Insulin Aspart) 100 Unit/1 Ml Vial, UNITS SC AC, (Reported) Entered as Reported by: JUAN R PEDROZA on 11/09/20 1153 Insulin Determir (Levemir) 100 Unit/Ml Soln, 16 UNITS SQ DAILY, (Reported) Entered as Reported by: JUAN R PEDROZA on 11/02/21 164 Insulin Determir (Levemir) 1,000 Units/10 Ml Soln, 7 UNITS SQ HS Prescribed by: TONG MAGALLON on 11/10/21 0605 Levothyroxine Sodium (Levothyroxine Sodium) 25 Mcg Tablet, 25 MCG PO DAILY, (Reported) Entered as Reported by: JUAN R PEDROZA on 11/02/21 164 Levothyroxine Sodium (Levothyroxine Sodium) 200 Mcg Tablet, 200 MCG PO DAILY, (Reported) Entered as Reported by: JUAN R PEDROZA on 11/02/21 1647 Lisinopril (Lisinopril) 20 Mg Tablet, 10 MG PO HS, (Reported) Entered as Reported by: ERROL DAVIS on 07/30/21 033 Meclizine HCl (Meclizine HCl) 12.5 Mg Tablet, 12.5 MG PO Q6H PRN for DIZZINESS, (Reported) Entered as Reported by: JUAN R PEDROZA on 11/02/21 164 Montelukast Sodium (Montelukast Sodium) 10 Mg Tablet, 10 MG PO HS, (Reported) Entered as Reported by: ERROL DAVIS on 07/30/21 033 Pantoprazole Sodium (Pantoprazole Sodium) 40 Mg Tablet.dr, 40 MG PO BID, ( Reported) Entered as Reported by: JUAN R PEDROZA on 11/09/20 1153 Paroxetine HCl (Paroxetine HCl) 40 Mg Tablet, 40 MG PO DAILY, (Reported) Entered as Reported by: LUIS TOWNSEND on 11/30/15 1408 Review of Systems Review of Systems Constitutional: No chills, No diaphoresis EENTM: No Blurred Vision, No Double Vision Respiratory: Cough, Shortness of Air Cardiovascular: Denies Chest Pain, Denies Lightheadedness Gastrointestinal: Denies Constipated, Denies Diarrhea Genitourinary: Denies Discharge, Denies Drainage Musculoskeletal: No back pain, No joint pain Skin: No pruritus, No rash Psychiatric/Neurological: Denies Anxiety, Denies Depressed All Other Systems Reviewed Negative Unless Noted: Yes Past Kkqfgda-Mefgwc-Jfwspi Hx Patient Social History Tobacco Use?: No Use of E-Cig and/or Vaping dev: No Substance use?: No Immunizations Up To Date Tetanus Booster (TDap): Unknown PED Vaccines UTD: No First/Initial COVID19 Vaccinat: 07/2020 Second COVID19 Vaccination Rakesh: 08/2020 Third COVID19 Vaccination Date: 07/2020 Seasonal Allergies Seasonal Allergies: No Past Medical History Surgery/Hospitalization HX: GALL BLADDER, UTI Surgeries: Yes Abdominal, Cardiac, CABG, Gallbladder, 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, Oophorectomy, Orthopedic, Thyroidectomy, Vascular Surgery Respiratory: Yes COPD Currently Using CPAP: No Currently Using BIPAP: No Cardiac: Yes (RIGHT ILIAC STENT; 4 VESSEL CABG AND RIGHT CAROTID ENDARTERECTOMY 12/2015) Atrial Fibrillation, Coronary Artery Disease, High Cholesterol, Hypertension, Peripheral Vascular Neurological: Yes Headaches /Migraines, Neuropathy, Stroke Reproductive Disorders: No Female Reproductive Disorders: Denies [employer] 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, Menopausal Sexually Transmitted Disease: No HIV/AIDS: No Genitourinary: No Gastrointestinal: Yes Gastroesophageal Reflux, Chronic Constipation, Chronic Diarrhea, Hiatal Hernia Musculoskeletal: Yes (CHRONIC NECK PAIN--S/P CERVICAL FUSION) Degenerate Disk Disease, Chronic Back Pain Endocrine: Yes Diabetes, Insulin dep, Hypothyroidsim HEENT: No Loss of Vision: Denies Hearing Impairment: Denies Cancer: No Psychosocial: Yes Anxiety, Depression Integumentary: Yes (PREVIOUS ABCESSES) Blood Disorders: No Adverse Reaction/Blood Tranf: No Family Medical History Cancer G8 BROTHER, Onset:Unknown G8 BROTHER, Onset:Unknown Cancer of colon G8 BROTHER, Onset:Unknown Chest pain 19 MOTHER, Onset:Unknown Colon cancer Congestive heart failure 19 FATHER, Onset:60 years & older Family history: Alzheimer's disease 19 MOTHER, Onset:50's - 60 Family history: Arthritis 19 MOTHER, Onset:Unknown Family history: Asthma 19 FATHER, Onset:Unknown Family history: Cardiovascular disease 19 MOTHER, Onset:50's - 60 Family history: Coronary thrombosis 19 MOTHER, Onset:Unknown Family history: Diabetes mellitus 19 MOTHER, Onset:Unknown Family history: Hypertension 19 MOTHER, Onset:50's - 60 Family history: Thyroid disorder 19 MOTHER, Onset:50's - 60 Heart disease 19 MOTHER, Onset:50's - 60 Human immunodeficiency virus (HIV) seropositivity G8 BROTHER, Onset:40's - 50 Myocardial infarction 19 MOTHER, Onset:50's - 60 No Family History of: Abdominal aortic aneurysm [place]'s disease Alcoholism Aphasia Cataract Congenital heart disease Cystic fibrosis Dementia Dysphagia Family history: Allergy Family history: Breast disease Family history: Gastrointestinal disease Family history: Glaucoma Family history: Osteoporosis Headache Hearing loss Hereditary disease History of - anemia History of - disorder History of - respiratory disease History of drug abuse Hypercholesterolemia Infertile Kidney disease Malignant neoplasm of lung Parkinson's disease Prostate cancer Psychotic disorder Seizure disorder Stroke Tuberculosis Visual impairment PSH: -RIGHT ILIAC ARTERY STENT -4 VESSEL CABG 12/2015 -RIGHT CAROTID ENDARTERECTOMY 12/2015 -TONSILLECTOMY -HYSTERECTOMY/BSO -LAPAROSCOPIC RENETTA FUNDOPLICATION -CERVICAL SPINE FUSION Physical Exam Vital Signs Vital Signs - First Documented 11/15/21 09:11 Temp 36.3 Pulse 147 Resp 16 B/P (MAP) 91/47 (62) Pulse Ox 100 O2 Delivery Room Air Capillary Refill : Less Than 3 Seconds Height, Weight, BMI Height: 5'5.00" Weight: 125lbs. 0.0oz. [id number]; 20.00 BMI Method:Stated General Appearance: Chronically ill, Mild Distress HEENT: PERRL/EOMI, Pharynx Normal; No Moist Mucous Membranes Neck: Full Range of Motion, Normal Inspection Respiratory: Lungs Clear, Normal Breath Sounds, No Accessory Muscle Use, No Respiratory Distress, Other (No cough noticed during exam) Cardiovascular: Regular Rate, Rhythm, No Edema, Normal Peripheral Pulses Gastrointestinal: Normal Bowel Sounds, Non Tender, Soft Extremity: Normal Capillary Refill, Normal Inspection, No Pedal Edema Neurologic/Psychiatric: Alert, Oriented x3 Skin: Warm/Dry, Pallor Procedures/Interventions Procedure: Cardioversion, electrical Patient Education: Explained Benefits, Explained Risks, Pt. Ack. Understanding Agreement on procedure with pt: Yes Breath Sounds per Auscultation: Clear Heart Sounds per Auscultation: Irregular Airway Exam: Mouth opens >2 fingers, Neck Full Range of Motion, Visulation of Uvula Sedation Adminstration Time: 09:55 Total Time spent in CS 15 mins 2 mg of Versed and 50 mcg of fentanyl were given for light sedation, analgesia, amnesia. Written consent was signed. Re-examination Time: 10:15 Re-examination Patient is resting comfortably on end-tidal CO2 just under 30 mmHg pressure and answers questions appropriately, GCS 14. Additional Procedures: cardioversion/defib Progress After sedation was obtained we did use a [id number] to help ventilate the patient and we had the ZOLL defibrillator paddles on her appropriately. We used synced cardioversion at 120 J x 1 shock. Patient immediately went into a sinus rhythm and her next blood pressure was good 140 systolic. We took her out of Trendelenburg and set her up. Progress/Results/Core Measures Results/Orders Lab Results Laboratory Tests Test 11/15/21 09:25 11/15/21 09:40 Range/Units White Blood Count 12.2 H 4.3-11.0 10^3/uL Red Blood Count 2.88 L 3.80-5.11 10^6/uL Hemoglobin 7.8 L 11.5-16.0 g/dL Hematocrit 26 L 35-52 % Mean Corpuscular Volume 89 80-99 fL Mean Corpuscular Hemoglobin 27 25-34 pg Mean Corpuscular Hemoglobin Concent 31 L 32-36 g/dL Red Cell Distribution Width 15.6 H 10.0-14.5 % Platelet Count 427 H 130-400 10^3/uL Mean Platelet Volume 9.2 9.0-12.2 fL Immature Granulocyte % (Auto) 1 % Neutrophils (%) (Auto) 72 42-75 % Lymphocytes (%) (Auto) 15 12-44 % Monocytes (%) (Auto) 9 0-12 % Eosinophils (%) (Auto) 3 0-10 % Basophils (%) (Auto) 1 0-10 % Neutrophils # (Auto) 8.7 H 1.8-7.8 10^3/uL Lymphocytes # (Auto) 1.8 1.0-4.0 10^3/uL Monocytes # (Auto) 1.1 H 0.0-1.0 10^3/uL Eosinophils # (Auto) 0.4 H 0.0-0.3 10^3/uL Basophils # (Auto) 0.1 0.0-0.1 10^3/uL Immature Granulocyte # (Auto) 0.1 0.0-0.1 10^3/uL Sodium Level 141 135-145 MMOL/L Potassium Level 3.9 3.6-5.0 MMOL/L Chloride Level 107 98-107 MMOL/L Carbon Dioxide Level 22 21-32 MMOL/L Anion Gap 12 5-14 MMOL/L Blood Urea Nitrogen 41 H 7-18 MG/DL Creatinine 1.60 H 0.60-1.30 MG/DL Estimat Glomerular Filtration Rate 37 BUN/Creatinine Ratio 26 Glucose Level 207 H 70-105 MG/DL Calcium Level 8.5 8.5-10.1 MG/DL Corrected Calcium 9.5 8.5-10.1 MG/DL Total Bilirubin 0.2 0.1-1.0 MG/DL Aspartate Amino Transf (AST/SGOT) 44 H 5-34 U/L Alanine Aminotransferase (ALT/SGPT) 69 H 0-55 U/L Alkaline Phosphatase 213 H 40-136 U/L Troponin I < 0.028 <0.028 NG/ML C-Reactive Protein High Sensitivity 3.18 H 0.00-0.50 MG/DL Total Protein 6.0 L 6.4-8.2 GM/DL Albumin 2.7 L 3.2-4.5 GM/DL My Orders Orders - FRANCINE NAILS Ekg Tracing (11/15/21 09:17) Cbc With Automated Diff (11/15/21:28) Comprehensive Metabolic Panel (11/15/21:28) Hs C Reactive Protein (11/15/21:28) Chest 1 View, Ap/Pa Only (11/15/21:28) Troponin I [place] (11/15/21:28) Ua Culture If Indicated (11/15/21:) Bnp Bonnie (11/15/21:28) Ed Iv/Invasive Line Start (11/15/21:28) Ns Iv 500 Ml (Sodium Chloride 0.9%) (11/15/21 09:30) Apixaban Tablet (Eliquis Tablet) (11/15/21 09:45) Diltiazem Drip Pre-Mix (Cardizem Drip Pr (11/15/21 09:45) Midazolam Injection (Versed Injection) (11/15/21 10:00) Fentanyl Inj (Sublimaze Injection) (11/15/21 10:00) Ed Iv/Invasive Line Start (11/15/21 09:48) Ns Iv 500 Ml (Sodium Chloride 0.9%) (11/15/21 10:00) End Tidal Co2 (11/15/21 09:48) Fentanyl Inj (Sublimaze Injection) (11/15/21 10:00) Midazolam Injection (Versed Injection) (11/15/21 09:48) Fentanyl Inj (Sublimaze Injection) (11/15/21 09:49) Ns Iv 500 Ml (Sodium Chloride 0.9%) (11/15/21 09:50) Ekg Tracing (11/15/21 09:59) Iron Tibc %Sat & Ferritin (11/15/21 10:43) Vital Signs: Special (Order) (11/15/21 10:44) Consent-Obtain Consent For (11/15/21 10:44) Monitor S/S Transfusion Reacti (11/15/21 10:44) Type And Screen (11/15/21 10:44) Red Cells Leukocytes Reduced (11/15/21 10:44) Medications Given in ED Current Medications Medications Dose Ordered Sig/Janet Route Start Time Stop Time Status Last Admin Dose Admin Apixaban 5 mg ONCE ONCE PO 11/15/21 09:45 11/15/21 09:46 DC 11/15/21 09:40 5 MG Fentanyl Citrate 50 mcg ONCE ONCE IVP 11/15/21 10:00 11/15/21 10:01 DC 11/15/21 09:55 50 MCG Midazolam HCl 2 mg ONCE ONCE IVP 11/15/21 10:00 11/15/21 10:01 DC 11/15/21 09:55 2 MG Sodium Chloride 500 ml @ 0 mls/hr Q0M ONCE IV 11/15/21 09:30 11/15/21 09:31 DC 11/15/21 09:36 500 MLS/HR Sodium Chloride 500 ml @ 0 mls/hr Q0M ONCE IV 11/15/21 10:00 11/15/21 10:01 DC 11/15/21 09:58 500 MLS/HR Vital Signs/I&O 11/15/21 09:11 Temp 36.3 Pulse 147 Resp 16 B/P (MAP) 91/47 (62) Pulse Ox 100 O2 Delivery Room Air Blood Pressure Mean: 62 Progress Progress Note #1: Time: 09:37 Progress Note Patient was able to ambulate into the room. She is a soft blood pressure although she typically has blood pressure that is lower given her body habitus. Root put her in Trendelenburg and will give her a fluid bolus and if this does not correct her blood pressure along with some Cardizem then we will electrically cardiovert her promptly. We will give her her morning dose of El iquis. She is not having any chest pain. She is on Plavix and Eliquis routinely. Her last creatinine was okay with a GFR 41. Rechecking some blood work and getting a chest x-ray since she had a recent pneumonia will expect to see some markings left over. She is oxygenating well and mentating well. We did put the ZOLL defibrillator pads on her in anticipation of a cardioversion. Progress Note #2: Time: 10:13 Progress Note Unfortunately despite our interventions she continued to have a low blood pressure so we discussed risks, benefits and alternatives to doing electrocardioversion and because of her unstable blood pressure 76/58 in Trendelenburg with IV fluids going she consented to cardioversion. Cardiov ersion was successful and the patient had an excellent blood pressure of 140 systolic afterwards with an immediate return to sinus rhythm in the 80s. She is already on Eliquis so the risks were deemed acceptable Initial ECG Impression Date: November 15, 2021 Initial ECG Impression Time: 08:00 Initial ECG Rate: 162 Initial ECG Rhythm: A Fib/Flutter Initial ECG Intervals: QT (499) Initial ECG Impression: Atrial Fibrillation w/RVR Initial ECG Comparisson: Unchanged Comment Atrial fibrillation with rapid ventricular response EKG #1: EKG Time: 09:18 Rate: 151 Rhythm: A Fib/Flutter Intervals: QT (379) ECG Impression: Atrial Fibrillation w/RVR Comment Atrial fibrillation with rapid ventricular response. No clinically relevant ST elevation or depression. EKG #2: EKG Time: 10:02 Rate: 80 Rhythm: Normal Sinus Intervals: Normal ECG Comparisson: Changed ECG Impression: Normal Comment Normal sinus rhythm without clinically relevant ST elevation or depression. Diagnostic Imaging Diagonstic Imaging: Xray Plain Films/CT/US/NM/MRI: chest Comments [facility] [place], [place] NAME: TIFFANY GRAMAJO [facility] REC#: [id number] PT STATUS: REG ER : 1960 PHYSICIAN: FRANCINE NAILS MD ADMIT DATE: 11/15/21/ER Draft Date of Exam:11/15/21 CHEST 1 VIEW, AP/PA ONLY INDICATION: Shortness of breath and tachycardia. Frontal chest obtained at 10:48 a.m. and compared to 10/25/2021. FINDINGS: There is post-sternotomy change with cardiomegaly. There is central vascular congestion and interstitial edema. There is no pneumothorax or pleural fluid. Port-A-Cath is unchanged. IMPRESSION: Prominent cardiomegaly with central vascular congestion and interstitial edema compatible with CHF. The right upper lobe infiltrate seen on 10/25/2021 appears to have resolved, as has the left perihilar infiltrate. Dictated on workstation # [id number] Dict: 11/15/21 1046 Trans: 11/15/21 1049 [id number] Interpreted by: ZARA ABRAHAM MD Electronically signed by: Reviewed: Reviewed by Me Departure Communication (Admissions) Time/Spoke to Admitting Phy: 10:40 Discussed the case with Dr. Finch and she agrees to observe the patient on cardiac stepdown with telemetry after cardioversion and transfuse 1 unit packed red blood cells. Iron studies ordered on labs. Time/Spoke to Consulting Phy: 10:10 Discussed the case with the Head Greenskeeper RN for Dr. Jeffries and he will call back when he is done. Impression Primary Impression: Paroxysmal atrial fibrillation with RVR Additional Impression: Anemia Qualified Codes: D64.9 - Anemia, unspecified Disposition: ADMITTED INPATIENT Condition: Stable Admissions Decision to Admit Reason: Admit from ER (General) Decision to Admit/Date: November 15, 2021 Time/Decision to Admit Time: 10:30 Departure-Patient Inst. Referrals: JUAN R MAHMOOD DO (PCP/Family) Primary Care Physician FRANCINE NAILS November 15, 2021 09:33
[2021-11-15] MEDS ORDERED: dilTIAZem DRIP PRE-MIX 125 ML IV SCH (09:45)
[2021-11-15] MEDS ORDERED: APIXABAN 5 MG (ELIQUIS) TABLET PO ONE (09:45)
[2021-11-15] MEDS ORDERED: MIDAZOLAM 5 MG/5 ML (VERSED) VIAL ONE (09:48)
[2021-11-15] MEDS ORDERED: fentaNYL INJ 100 MCG/2 ML AMP ONE (09:49)
[2021-11-15] MEDS ORDERED: NS IV 500 ML 500 ML ONE ×2 (09:50→13:04)
[2021-11-15 09:56] LABS: BASOPHILS # (AUTO) 0.1 10^3/uL (0.0-0.1); BASOPHILS % (AUTO) 1 % (0-10); EOSINOPHILS # (AUTO) 0.4 10^3/uL (0.0-0.3); EOSINOPHILS % (AUTO) 3 % (0-10); HEMATOCRIT 26 % (35-52); HEMOGLOBIN 7.8 g/dL (11.5-16.0); LYMPHOCYTES # (AUTO) 1.8 10^3/uL (1.0-4.0); LYMPHOCYTES % (AUTO) 15 % (12-44); MEAN CORPUSCULAR HEMOGLOBIN 27 pg (25-34); MEAN CORPUSCULAR HGB CONC 31 g/dL (32-36); MEAN CORPUSCULAR VOLUME 89 fL (80-99); MEAN PLATELET VOLUME 9.2 fL (9.0-12.2); MONOCYTES # (AUTO) 1.1 10^3/uL (0.0-1.0); MONOCYTES % (AUTO) 9 % (0-12); NEUTROPHILS # (AUTO) 8.7 10^3/uL (1.8-7.8); NEUTROPHILS % (AUTO) 72 % (42-75); PLATELET COUNT 427 10^3/uL (130-400); WHITE BLOOD COUNT 12.2 10^3/uL (4.3-11.0)
[2021-11-15] MEDS ORDERED: fentaNYL INJ 100 MCG/2 ML AMP IVP ONE ×2 (10:00)
[2021-11-15] MEDS ORDERED: MIDAZOLAM 5 MG/5 ML (VERSED) VIAL IVP ONE (10:00)
[2021-11-15 10:06] LABS: ALBUMIN 2.7 GM/DL (3.2-4.5); CHLORIDE 107 MMOL/L (98-107); POTASSIUM 3.9 MMOL/L (3.6-5.0); SODIUM 141 MMOL/L (135-145)
[2021-11-15 10:07] LABS: CALCIUM 8.5 MG/DL (8.5-10.1)
[2021-11-15 10:08] LABS: GLUCOSE 207 MG/DL (70-105)
[2021-11-15 10:10] LABS: BILIRUBIN,TOTAL 0.2 MG/DL (0.1-1.0); CARBON DIOXIDE 22 MMOL/L (21-32)
[2021-11-15 10:12] LABS: ALKALINE PHOSPHATASE 213 U/L (40-136); GFR ESTIMATED 37
[2021-11-15 10:13] LABS: BUN/CREATININE RATIO 26
[2021-11-15 10:15] LABS: ALANINE AMINOTRANSFERASE 69 U/L (0-55)
--- NOTE | 2021-11-15 10:50 | Diagnostic Imaging Report ---
INDICATION: Shortness of breath and tachycardia. Frontal chest obtained at 10:48 a.m. and compared to 10/25/2021. FINDINGS: There is post-sternotomy change with cardiomegaly. There is central vascular congestion and interstitial edema. There is no pneumothorax or pleural fluid. Port-A-Cath is unchanged. IMPRESSION: Prominent cardiomegaly with central vascular congestion and interstitial edema compatible with CHF. The right upper lobe infiltrate seen on 10/25/2021 appears to have resolved, as has the left perihilar infiltrate. Dictated by: Dictated on workstation # [id number]
--- NOTE | 2021-11-15 11:51 | Consultation-Cardiology ---
HPI-Cardiology Cardiology Consultation: Date of Consultation 11/15/21 Time Seen by a Provider: 12:40 Date of Admission 11-15-21 Attending Physician Delilah Finch MD Admitting Physician Juan R Dodge DO Consulting Physician Karie Jeffries MD HPI: Chief Complaint: A-fib with RVR Ms. Gramajo is a 61 yr old female admitted to 510 from the ED. She reports she felt herself go into a-fib over the weekend, reports the episode lasted for 12- 13 hours. She reports feeling palpitations. No SOB or CP. No syncope or near syncope. She states she went to see her PCP and was noted to be in a-fib with low blood pressure, HR in the 120's. She denies any n/v/d. No c/o fever or chills. She reports she has had night sweats. She denies any blood in her urine or stool. She reports mild bilat ankle swelling. She reports she continues to smoke cigs and is using a nicotine patch. She reports she is feeling well at this time. Review of Systems-Cardiology Review of Systems Constitutional: As described under HPI Eyes: No vision change Ears/Nose/Throat: No epistaxis Respiratory: As described under HPI Cardiovascular: As described under HPI Gastrointestinal: As described under HPI Genitourinary: No dysuria, No hematuria Musculoskeletal: no symptoms reported Skin: No rash on exposed areas, No ulcerations on exposed areas Psychiatric/Neurological: No anxiety, No depression, No seizure, No focal weakness, No syncope Hematologic: No bleeding abnormalities All Other Systems Reviewed Negative Unless Noted: Yes [id number]-Orkabj Hx Patient Social History Smoking Status: Current Everyday Smoker 2nd Hand Smoke Exposure: No Have you traveled recently?: No Alcohol Use?: No Immunizations Up To Date Tetanus Booster (TDap): Unknown Date of Pneumonia Vaccine: Apr 02, 2013 Date of Influenza Vaccine: May 05, 2020 Past Medical History PMH As described under Assessment. Family Medical History Family Medical History: .Reported h/o father having CHF. Mother having CAD (onset before age 60), stroke and HTN Family History: Cancer G8 BROTHER, Onset:Unknown G8 BROTHER, Onset:Unknown Cancer of colon G8 BROTHER, Onset:Unknown Chest pain 19 MOTHER, Onset:Unknown Colon cancer Congestive heart failure 19 FATHER, Onset:60 years & older Family history: Alzheimer's disease 19 MOTHER, Onset:50's - 60 Family history: Arthritis 19 MOTHER, Onset:Unknown Family history: Asthma 19 FATHER, Onset:Unknown Family history: Cardiovascular disease 19 MOTHER, Onset:50s 60 Family history: Coronary thrombosis 19 MOTHER, Onset:Unknown Family history: Diabetes mellitus 19 MOTHER, Onset:Unknown Family history: Hypertension 19 MOTHER, Onset:50s 60 Family history: Thyroid disorder 19 MOTHER, Onset:50 - 60 Heart disease 19 MOTHER, Onset:50 60 Human immunodeficiency virus (HIV) seropositivity G8 BROTHER, Onset:40's - 50 Myocardial infarction 19 MOTHER, Onset:50s - 60 No Family History of: Abdominal aortic aneurysm Metcalfe's disease Alcoholism Aphasia Cataract Congenital heart disease Cystic fibrosis Dementia Dysphagia Family history: Allergy Family history: Breast disease Family history: Gastrointestinal disease Family history: Glaucoma Family history: Osteoporosis Headache Hearing loss Hereditary disease History of - anemia History of - disorder History of - respiratory disease History of drug abuse Hypercholesterolemia Infertile Kidney disease Malignant neoplasm of lung Parkinson's disease Prostate cancer Psychotic disorder Seizure disorder Stroke Tuberculosis Visual impairment Allergies and Home Medications Allergies Coded Allergies: ciprofloxacin (Verified Allergy, Mild, redness and itching , 12/04/18) redness and itching at iv site Patient Home Medication List Albuterol Sulfate (Proair Hfa) 1 Puff Puff, 2 PUFF IH Q4H PRN for SHORTNESS OF BREATH, (Reported) Entered as Reported by: JUAN R PEDROZA on 11/02/21 1647 Apixaban (Eliquis) 5 Mg Tablet, 5 MG PO BID, (Reported) Entered as Reported by: JUAN R PEDROZA on 11/02/21 1647 Atorvastatin Calcium (Atorvastatin Calcium) 40 Mg Tablet, 40 MG PO HS, (Reported) Entered as Reported by: JUAN R PEDROZA on 11/09/20 1153 Buspirone HCl (Buspirone HCl) 5 Mg Tablet, 5 MG PO BID, (Reported) Entered as Reported by: JUAN R PEDROZA on 11/04/21 1148 Calcitriol (Calcitriol) 0.25 Mcg Capsule, 0.25 MCG PO HS, (Reported) Entered as Reported by: ERROL DAVIS on 07/30/21 0331 Clopidogrel Bisulfate (Clopidogrel) 75 Mg Tablet, 75 MG PO DAILY, (Reported) Entered as Reported by: JUAN R PEDROZA on 09/03/20 1559 Diltiazem HCl (Diltiazem 24Hr ER) 240 Mg Cap.er.24h, 240 MG PO HS, (Reported) Entered as Reported by: JUAN R PEDROZA on 11/02/211646 Fluticasone/Umeclidin/Vilanter (Trelegy Ellipta 100-62.5-25) 1 Each Blst.w.dev, 1 EACH IH DAILY, (Reported) Entered as Reported by: ERROL DAVIS on 07/30/21330 Folic Acid (Folic Acid) 1 Mg Tablet, 1 MG PO DAILY, (Reported) Entered as Reported by: JUAN R PEDROZA on 11/02/211646 Gabapentin (Gabapentin) 100 Mg Capsule, 100 MG PO HS PRN for PAIN-BREAKTHROUGH, (Reported) Entered as Reported by: EFE PATTERSON on 12/20/15 1348 Insulin Aspart (Insulin Aspart) 100 Unit/1 Ml Vial, UNITS SC AC, (Reported) Entered as Reported by: JUAN R PEDROZA on 11/09/20 1153 Insulin Determir (Levemir) 100 Unit/Ml Soln, 16 UNITS SQ DAILY, (Reported) Entered as Reported by: JUAN R PEDROZA on 11/02/211646 Insulin Determir (Levemir) 1,000 Units/10 Ml Soln, 7 UNITS SQ HS Prescribed by: TONG MAGALLON on 11/10/21 0605 Levothyroxine Sodium (Levothyroxine Sodium) 25 Mcg Tablet, 25 MCG PO DAILY, (Reported) Entered as Reported by: JUAN R PEDROZA on 11/02/211646 Levothyroxine Sodium (Levothyroxine Sodium) 200 Mcg Tablet, 200 MCG PO DAILY, (Reported) Entered as Reported by: JUAN R PEDROZA on 11/02/211646 Lisinopril (Lisinopril) 20 Mg Tablet, 10 MG PO HS, (Reported) Entered as Reported by: ERROL DAVIS on 07/30/21330 Meclizine HCl (Meclizine HCl) 12.5 Mg Tablet, 12.5 MG PO Q6H PRN for DIZZINESS, (Reported) Entered as Reported by: JUAN R PEDROZA on 11/02/211646 Montelukast Sodium (Montelukast Sodium) 10 Mg Tablet, 10 MG PO HS, (Reported) Entered as Reported by: ERROL DAVIS on 07/30/21 0331 Pantoprazole Sodium (Pantoprazole Sodium) 40 Mg Tablet.dr, 40 MG PO BID, (Reported) Entered as Reported by: JUAN R PEDROZA on 11/09/20 1153 Paroxetine HCl (Paroxetine HCl) 40 Mg Tablet, 40 MG PO DAILY, (Reported) Entered as Reported by: LUIS TOWNSEND on 11/30/15 1408 Physical Exam-Cardiology Physical Exam Vital Signs/I&O 11/15/21 11/15/21 11/15/21 11/15/21 09:11 12:09 12:23 12:39 Temp 36.3 36.4 Pulse 147 83 82 95 Resp 16 16 16 B/P (MAP) 91/47 (62) 133/73 146/79 (101) Pulse Ox 100 98 96 O2 Delivery Room Air Room Air Room Air Capillary Refill : Less Than 3 Seconds Constitutional: AAO x 3, well-developed, other (thin) HEENT: PERRL, hearing is well preserved Neck: No carotid bruit; carotid pulses are 2 + bilaterally Respiratory: No accessory muscle use, No respiratory distress; chest expansion is symmetric, chest is bilaterally symmetric, lungs clear to auscultation, other (prolonged exp phase) Cardiovascular: regular rate-rhythm; No JVD; S1 and S2 Gastrointestinal: No tender; soft, round, audible bowel sounds Extremities: no lower extremity edema bilateral Neurologic/Psychiatric: other (LUE/LLE 4/5; ) Skin: No rash on exposed areas, No ulcerations on exposed areas Data Review Labs Laboratory Tests 11/15/21 09:25: 11/15/21 09:40: White Blood Count 12.2H, Red Blood Count 2.88L, Hemoglobin 7.8L, Hematocrit 26L, Mean Corpuscular Volume 89, Mean Corpuscular Hemoglobin 27, Mean Corpuscular Hemoglobin Concent 31L, Red Cell Distribution Width 15.6H, Platelet Count 427H, Mean Platelet Volume 9.2, Immature Granulocyte % (Auto) 1, Neutrophils (%) (Auto) 72, Lymphocytes (%) (Auto) 15, Monocytes (%) (Auto) 9, Eosinophils (%) (Auto) 3, Basophils (%) (Auto) 1, Neutrophils # (Auto) 8.7H, Lymphocytes # (Auto) 1.8, Monocytes # (Auto) 1.1H, Eosinophils # (Auto) 0.4H, Basophils # (Auto) 0.1, Immature Granulocyte # (Auto) 0.1, Sodium Level 141, Potassium Level 3.9, Chloride Level 107, Carbon Dioxide Level 22, Anion Gap 12, Blood Urea Nitrogen 41H, Creatinine 1.60H, Estimat Glomerular Filtration Rate 37, BUN/Creatinine Ratio 26, Glucose Level 207H, Calcium Level 8.5, Corrected Calcium 9.5, Total Bilirubin 0.2, Aspartate Amino Transf (AST/SGOT) 44H, Alanine Aminotransferase (ALT/SGPT) 69H, Alkaline Phosphatase 213H, Troponin I < 0.028, C-Reactive Protein High Sensitivity 3.18H, Total Protein 6.0L, Albumin 2.7L Radiology NAME: TIFFANY GRAMAJO [facility] REC#: [id number] PT STATUS: ADM Barb : 1960 PHYSICIAN: FRANCINE NAILS MD ADMIT DATE: 11/15/21/[facility] Signed Date of Exam:11/15/21 CHEST 1 VIEW, AP/PA ONLY INDICATION: Shortness of breath and tachycardia. Frontal chest obtained at 10:48 a.m. and compared to 10/25/2021. FINDINGS: There is post-sternotomy change with cardiomegaly. There is central vascular congestion and interstitial edema. There is no pneumothorax or pleural fluid. Port-A-Cath is unchanged. IMPRESSION: Prominent cardiomegaly with central vascular congestion and interstitial edema compatible with CHF. The right upper lobe infiltrate seen on 10/25/2021 appears to have resolved, as has the left perihilar infiltrate. Dictated by: Dictated on workstation # [id number] Dict: 11/15/21 1046 Trans: 11/15/21 1128 [id number] Interpreted by: ZARA ABRAHAM MD Electronically signed by: ZARA ABRAHAM MD 11/15/21 1128 ECG Impression ECG Comment A-fib with RVR EKG following cadioversion - SR A/P-Cardiology Assessment/Admission Diagnosis A-fib with RVR - cardioverted to SR in the ED on 11-15-21 - H/O PAF - OAC with Eliquis (states she has been compliant) - Cadizem CD for rate control Anemia - undetermined etiology - management per medical services S/P Recent hospitalization at [facility] d/t sepsis, DKA and renal failure - recently discharged from [facility] pt rehab at this facility last week CVA - Acute to subacute, 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 Crenshaw's note of 10-29-21 ([facility]) - Residual LUE, LLE weakness and left sided facial droop CAD, s/p CABG - Cardiac cath of 12-28-15 showed severe MVD, LVEF 60%, elevated LVEDP. CABG x 4 on 12-30-[address] Doherty at [facility]: 1. PAUL to LAD, reverse saphenous vein graft to OM2, sequential to RPDA and reverse saphenous vein graft to diagonal 2. Excision of the aortic cusp fibroelastoma - MPI of 03-15-21: no evidence of significant ischemia or infarction, LVEF 60% - Echo of 03-08-21 showed mod concentric hypertrophy. LVEF 70-75%. No regional wall motion abnormalities. Grade 2 diastolic dysfunction. Mitral valve annulus mild to mod calcified with mild to mod regurg. Mild AoV stenosis. Mod TR. PASP 50-55mmHg Right CEA on 12-30-15 at the time of CABG by Dr. Doherty - carotid u/s of Jul 2018 showed mild carotid arterial disease PAD and claudication (L>R) - S/p 7x60 mm stenting of the R common iliac (post-dilated with an 8 mm balloon) on 08/15/16 that has resulted in resolution of R leg claudication. There is two- vessel runoff in the legs with mod to severe diffuse disease - Seg pressures of September 2020: mod obstructive PAD of the R lower limb and severe distal disease of the L lower limb - Arterial doppler of 10-28-21 at [facility] showed mild to mod diffuse bilat leg calcified plaque with no acute occlusion or high-grade stenosis. The left leg arteri GI - S/P cholecystectomy COPD - managed by PCP Tobacco use (1PPD) -cessation is advised DM I - complicated by CKD 3 CKD 3 - followed by PCP who has referred her to Nephrology in [place] (Feb 2021) Hyperlipidemia - treated with atorvastatin (Dr Sanchez following blood work) Hypertension - with evidence of LVH on ECG Palpitations - Zio monitor of 06-18-17 to 07-02-17 showed very brief episodes of SVT with the fastest lasting 7 beats at 214 bpm - PAF diagnosed on an ER visit of 07/29/21 Discussion and Recomendations A-fib with RVR - cardioverted to SR with PAC's - continue Cardizem CD - continue OAC with Eliquis Anemia - undetermined etiology - management per medical services Monitor lab Further recs will be based on her hospital course We would like to thank medical services for this consult ARNEL ZHOU November 15, 2021 11:51
[2021-11-15] MEDS ORDERED: ACETAMINOPHEN 325 MG TABLET PO PRN (13:00)
[2021-11-15] MEDS ORDERED: FUROSEMIDE 40 MG/4 ML INJ (LASIX) IV NR (13:00)
[2021-11-15] MEDS ORDERED: ONDANSETRON 4 MG/2 ML (SDV) Z0FRAN IV PRN (13:00)
[2021-11-15] MEDS ORDERED: CATHETER FLUSH 10 ML SYR IVP PRN (13:00)
[2021-11-15] MEDS: CATHETER FLUSH 10 ML SYR IVP SCH ×2 (14:49→21:18)
[2021-11-15] MEDS ORDERED: FOLI1TAB33 PO (15:13)
[2021-11-15] MEDS ORDERED: LISI10TA25 PO (15:13)
[2021-11-15] MEDS: inSUlin ASPART (NovoLOG) 1 UNIT/0.01 ML (CHARGE PER UNIT) SC SCH ×2 (16:11→21:18)
--- NOTE | 2021-11-15 17:23 | Consultation-Cardiology ---
HPI-Cardiology Cardiology Consultation: Date of Consultation 11/15/21 Time Seen by a Provider: 17:00 Date of Admission Attending Physician Delilah Finch MD Admitting Physician Juan R Dodge DO Consulting Physician THOMAS SHAW MD, MA, FACP, FACC, [facility] HPI: Chief Complaint: A-fib with RVR Ms. Yates is a 61 yr old female admitted to [facility] from the ED. She reports she felt herself go into a-fib over the weekend, reports the episode lasted for 12- 13 hours. She reports feeling palpitations. No SOB or CP. No syncope or near syncope. She states she went to see her PCP and was noted to be in a-fib with low blood pressure, HR in the 120's. She denies any n/v/d. No c/o fever or chills. She reports she has had night sweats. She denies any blood in her urine or stool. She reports mild bilat ankle swelling. She reports she continues to smoke cigs and is using a nicotine patch. She reports she is feeling well at this time. Review of Systems-Cardiology Review of Systems Constitutional: As described under HPI Eyes: No vision change Ears/Nose/Throat: No epistaxis Respiratory: As described under HPI Cardiovascular: As described under HPI Gastrointestinal: As described under HPI Genitourinary: No dysuria, No hematuria Musculoskeletal: no symptoms reported Skin: No rash on exposed areas, No ulcerations on exposed areas Psychiatric/Neurological: No anxiety, No depression, No seizure, No focal weakness, No syncope Hematologic: No bleeding abnormalities All Other Systems Reviewed Negative Unless Noted: Yes VWL-Hqxzto-Zpyixw Hx Patient Social History Smoking Status: Current Everyday Smoker 2nd Hand Smoke Exposure: No Have you traveled recently?: No Alcohol Use?: No Pt feels they are or have been: No Tobacco type used: Cigarettes Immunizations Up To Date Tetanus Booster (TDap): Unknown Date of Pneumonia Vaccine: Apr 02, 2013 Date of Influenza Vaccine: May 05, 2020 Past Medical History PMH As described under Assessment. Family Medical History Family Medical History: .Reported h/o father having CHF. Mother having CAD (onset before age 60), stroke and HTN Family History: Cancer G8 BROTHER, Onset:Unknown G8 BROTHER, Onset:Unknown Cancer of colon G8 BROTHER, Onset:Unknown Chest pain 19 MOTHER, Onset:Unknown Colon cancer Congestive heart failure 19 FATHER, Onset:60 years & older Family history: Alzheimer's disease 19 MOTHER, Onset:50s - 60 Family history: Arthritis 19 MOTHER, Onset:Unknown Family history: Asthma 19 FATHER, Onset:Unknown Family history: Cardiovascular disease 19 MOTHER, Onset:50 60 Family history: Coronary thrombosis 19 MOTHER, Onset:Unknown Family history: Diabetes mellitus 19 MOTHER, Onset:Unknown Family history: Hypertension 19 MOTHER, Onset:50 Family history: Thyroid disorder 19 MOTHER, Onset:50 Heart disease 19 MOTHER, Onset:50 Human immunodeficiency virus (HIV) seropositivity G8 BROTHER, Onset:40's - 50 Myocardial infarction 19 MOTHER, Onset:50s No Family History of: Abdominal aortic aneurysm Fidencio's disease Alcoholism Aphasia Cataract Congenital heart disease Cystic fibrosis Dementia Dysphagia Family history: Allergy Family history: Breast disease Family history: Gastrointestinal disease Family history: Glaucoma Family history: Osteoporosis Headache Hearing loss Hereditary disease History of - anemia History of - disorder History of - respiratory disease History of drug abuse Hypercholesterolemia Infertile Kidney disease Malignant neoplasm of lung Parkinson's disease Prostate cancer Psychotic disorder Seizure disorder Stroke Tuberculosis Visual impairment Allergies and Home Medications Allergies Coded Allergies: ciprofloxacin (Verified Allergy, Mild, redness and itching , 12/04/18) redness and itching at iv site Patient Home Medication List Home Medication List Reviewed: Yes Albuterol Sulfate (Proair Hfa) 1 Puff Puff, 2 PUFF IH Q4H PRN for SHORTNESS OF BREATH, (Reported) Entered as Reported by: JUAN R PEDROZA on 11/02/211646 Last Action: Reviewed Apixaban (Eliquis) 5 Mg Tablet, 5 MG PO BID, (Reported) Entered as Reported by: JUAN R PEDROZA on 11/02/21 164 Last Action: Reviewed Atorvastatin Calcium (Atorvastatin Calcium) 40 Mg Tablet, 40 MG PO HS, (Reported) Entered as Reported by: JUAN R PEDROZA on 11/09/20 1153 Last Action: Reviewed Buspirone HCl (Buspirone HCl) 5 Mg Tablet, 5 MG PO BID, (Reported) Entered as Reported by: JUAN R PEDROZA on 11/04/21 1148 Last Action: Reviewed Calcitriol (Calcitriol) 0.25 Mcg Capsule, 0.25 MCG PO HS, (Reported) Entered as Reported by: ERROL DAVIS on 07/30/21330 Last Action: Reviewed Diltiazem HCl (Diltiazem 24Hr ER) 240 Mg Cap.er.24h, 240 MG PO HS, (Reported) Entered as Reported by: JUAN R PEDROZA on 11/02/211646 Last Action: Reviewed Fluticasone/Umeclidin/Vilanter (Trelegy Ellipta 100-62.5-25) 1 Each Blst.w.dev, 1 EACH IH DAILY, (Reported) Entered as Reported by: ERROL DAVIS on 07/30/21330 Last Action: Reviewed Folic Acid (Folic Acid) 1 Mg Tablet, 1 MG PO DAILY, (Reported) Entered as Reported by: JUAN R PEDROZA on 11/15/211512 Last Action: Reviewed Gabapentin (Gabapentin) 100 Mg Capsule, 100 MG PO HS, (Reported) Entered as Reported by: EFE PATTERSON on 12/20/15 1348 Last Action: Reviewed Insulin Aspart (Insulin Aspart) 100 Unit/1 Ml Vial, UNITS SC AC, (Reported) Entered as Reported by: JUAN R PEDROZA on 11/09/20 115 Last Action: Reviewed Insulin Determir (Levemir) 100 Unit/Ml Soln, 16 UNITS SQ DAILY, (Reported) Entered as Reported by: JUAN R PEDROZA on 11/02/211646 Last Action: Reviewed Insulin Determir (Levemir) 1,000 Units/10 Ml Soln, 7 UNITS SQ HS Prescribed by: TONG MAGALLON on 11/10/21 0605 Last Action: Reviewed Levothyroxine Sodium (Levothyroxine Sodium) 25 Mcg Tablet, 25 MCG PO DAILY, (Reported) Entered as Reported by: JUAN R PEDROZA on 11/02/211646 Last Action: Reviewed Levothyroxine Sodium (Levothyroxine Sodium) 200 Mcg Tablet, 200 MCG PO DAILY, (Reported) Entered as Reported by: JUAN R PEDROZA on 11/02/211646 Last Action: Reviewed Lisinopril (Lisinopril) 10 Mg Tablet, 10 MG PO HS, (Reported) Entered as Reported by: JUAN R PEDROZA on 11/15/211512 Last Action: Reviewed Meclizine HCl (Meclizine HCl) 12.5 Mg Tablet, 12.5 MG PO Q6H PRN for DIZZINESS, (Reported) Entered as Reported by: JUAN R PEDROZA on 11/02/21 164 Last Action: Reviewed Montelukast Sodium (Montelukast Sodium) 10 Mg Tablet, 10 MG PO HS, (Reported) Entered as Reported by: ERROL DAVIS on 07/30/21330 Last Action: Reviewed Pantoprazole Sodium (Pantoprazole Sodium) 40 Mg Tablet.dr, 40 MG PO BID, (Reported) Entered as Reported by: JUAN R PEDROZA on 11/09/20 1153 Last Action: Reviewed Paroxetine HCl (Paroxetine HCl) 40 Mg Tablet, 40 MG PO DAILY, (Reported) Entered as Reported by: LUIS TOWNSEND on 11/30/15 1408 Last Action: Reviewed Discontinued Medications Clopidogrel Bisulfate (Clopidogrel) 75 Mg Tablet, 75 MG PO DAILY, (Reported) Discontinued Reason: No Longer Taking Entered as Reported by: JUAN R PEDROZA on 09/03/20 1559 Last Action: Discontinued Folic Acid (Folic Acid) 1 Mg Tablet, 1 MG PO DAILY, (Reported) Discontinued Reason: No Longer Taking Entered as Reported by: JUAN R PEDROZA on 11/02/211646 Last Action: Discontinued Lisinopril (Lisinopril) 20 Mg Tablet, 10 MG PO HS, (Reported) Discontinued Reason: Prescription changed Entered as Reported by: ERROL DAVIS on 07/30/21330 Physical Exam-Cardiology Physical Exam Vital Signs/I&O 11/15/21 11/15/21 11/15/21 11/15/21 09:11 12:09 12:23 12:23 Temp 36.3 36.4 Pulse 147 83 82 Resp 16 16 16 B/P (MAP) 91/47 (62) 133/73 146/79 (101) Pulse Ox 100 98 96 O2 Delivery Room Air Room Air Room Air Room Air 11/15/21 11/15/21 11/15/21 11/15/21 12:39 13:15 13:20 13:25 Temp 36.3 36.4 36.3 Pulse 95 84 86 86 Resp 16 16 16 B/P (MAP) 139/86 147/71 131/72 Pulse Ox 97 98 96 O2 Delivery Room Air Room Air Room Air 11/15/21 11/15/21 13:30 15:48 Temp 36.7 Pulse 89 85 Resp 16 20 B/P (MAP) 153/74 155/75 (101) Pulse Ox 97 96 O2 Delivery Room Air Room Air Capillary Refill : Less Than 3 Seconds Constitutional: AAO x 3, well-developed, other (thin) HEENT: PERRL, hearing is well preserved Neck: No carotid bruit; carotid pulses are 2 + bilaterally Respiratory: No accessory muscle use, No respiratory distress; chest expansion is symmetric, chest is bilaterally symmetric, lungs clear to auscultation, other (prolonged exp phase) Cardiovascular: regular rate-rhythm; No JVD; S1 and S2 Gastrointestinal: No tender; soft, round, audible bowel sounds Extremities: no lower extremity edema bilateral Neurologic/Psychiatric: other (LUE/LLE 4/5; ) Skin: No rash on exposed areas, No ulcerations on exposed areas Data Review Labs Laboratory Tests 11/15/21 09:25: B-Type Natriuretic Peptide 1468.9H 11/15/21 09:40: White Blood Count 12.2H, Red Blood Count 2.88L, Hemoglobin 7.8L, Hematocrit 26L, Mean Corpuscular Volume 89, Mean Corpuscular Hemoglobin 27, Mean Corpuscular Hemoglobin Concent 31L, Red Cell Distribution Width 15.6H, Platelet Count 427H, Mean Platelet Volume 9.2, Immature Granulocyte % (Auto) 1, Neutrophils (%) (Auto) 72, Lymphocytes (%) (Auto) 15, Monocytes (%) (Auto) 9, Eosinophils (%) (Auto) 3, Basophils (%) (Auto) 1, Neutrophils # (Auto) 8.7H, Lymphocytes # (Auto) 1.8, Monocytes # (Auto) 1.1H, Eosinophils # (Auto) 0.4H, Basophils # (Auto) 0.1, Immature Granulocyte # (Auto) 0.1, Sodium Level 141, Potassium Level 3.9, Chloride Level 107, Carbon Dioxide Level 22, Anion Gap 12, Blood Urea Nitrogen 41H, Creatinine 1.60H, Estimat Glomerular Filtration Rate 37, BUN/Creatinine Ratio 26, Glucose Level 207H, Calcium Level 8.5, Corrected Calcium 9.5, Total Bilirubin 0.2, Aspartate Amino Transf (AST/SGOT) 44H, Alanine Aminotransferase (ALT/SGPT) 69H, Alkaline Phosphatase 213H, Troponin I < 0.028, C-Reactive Protein High Sensitivity 3.18H, Total Protein 6.0L, Albumin 2.7L 11/15/21 16:10: Glucometer 151H A/P-Cardiology Assessment/Admission Diagnosis A-fib with RVR - cardioverted to SR in the ED on 11-15-21 - H/O PAF - OAC with Eliquis (states she has been compliant) - Cadizem CD for rate control Anemia - undetermined etiology - management per medical services S/P Recent hospitalization at [facility] d/t sepsis, DKA and renal failure - recently discharged from In pt rehab at this facility last week CVA - Acute to subacute, 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 Crenshaw's note of 10-29-21 ([facility]) - Residual LUE, LLE weakness and left sided facial droop CAD, s/p CABG - Cardiac cath of 12-28-15 showed severe MVD, LVEF 60%, elevated LVEDP. CABG x 4 on 12-30-[address] Doherty at [facility]: 1. PAUL to LAD, reverse saphenous vein graft to OM2, sequential to RPDA and reverse saphenous vein graft to diagonal 2. Excision of the aortic cusp fibroelastoma - MPI of 03-15-21: no evidence of significant ischemia or infarction, LVEF 60% - Echo of 03-08-21 showed mod concentric hypertrophy. LVEF 70-75%. No regional wall motion abnormalities. Grade 2 diastolic dysfunction. Mitral valve annulus mild to mod calcified with mild to mod regurg. Mild AoV stenosis. Mod TR. PASP 50-55mmHg Right CEA on 12-30-15 at the time of CABG by Dr. Doherty - carotid u/s of Jul 2018 showed mild carotid arterial disease PAD and claudication (L>R) - S/p 7x60 mm stenting of the R common iliac (post-dilated with an 8 mm balloon) on 08/15/16 that has resulted in resolution of R leg claudication. There is two- vessel runoff in the legs with mod to severe diffuse disease - Seg pressures of September 2020: mod obstructive PAD of the R lower limb and severe distal disease of the L lower limb - Arterial doppler of 10-28-21 at [facility] showed mild to mod diffuse bilat leg calcified plaque with no acute occlusion or high-grade stenosis. The left leg arteri GI - S/P cholecystectomy COPD - managed by PCP Tobacco use (1PPD) -cessation is advised DM I - complicated by CKD 3 CKD 3 - followed by PCP who has referred her to Nephrology in [place] (Feb 2021) Hyperlipidemia - treated with atorvastatin (Dr Sanchez following blood work) Hypertension - with evidence of LVH on ECG Palpitations - Zio monitor of 06-18-17 to 07-02-17 showed very brief episodes of SVT with the fastest lasting 7 beats at 214 bpm - PAF diagnosed on an ER visit of 07/29/21 Discussion and Recomendations A-fib with RVR - cardioverted to SR with PAC's - continue Cardizem CD - continue OAC with Eliquis Anemia - undetermined etiology - management per Medical services Monitor lab Further recs will be based on her hospital course We would like to thank Medical services for this consult THOMAS SHAW MD FACP FAC CCDS November 15, 2021 17:22
[2021-11-15] MEDS ORDERED: dilTIAZem120 MG (CARDIZEM CD) CAP PO NR (17:30)
[2021-11-15 20:32] LABS: BASOPHILS # (AUTO) 0.1 10^3/uL (0.0-0.1); BASOPHILS % (AUTO) 1 % (0-10); EOSINOPHILS # (AUTO) 0.6 10^3/uL (0.0-0.3); EOSINOPHILS % (AUTO) 5 % (0-10); HEMATOCRIT 28 % (35-52); HEMOGLOBIN 8.9 g/dL (11.5-16.0); LYMPHOCYTES # (AUTO) 2.1 10^3/uL (1.0-4.0); LYMPHOCYTES % (AUTO) 17 % (12-44); MEAN CORPUSCULAR HEMOGLOBIN 27 pg (25-34); MEAN CORPUSCULAR HGB CONC 31 g/dL (32-36); MEAN CORPUSCULAR VOLUME 86 fL (80-99); MONOCYTES % (AUTO) 9 % (0-12); NEUTROPHILS # (AUTO) 8.1 10^3/uL (1.8-7.8); NEUTROPHILS % (AUTO) 68 % (42-75); PLATELET COUNT 388 10^3/uL (130-400)
[2021-11-15] MEDS: APIXABAN 5 MG (ELIQUIS) TABLET PO SCH (21:00)
[2021-11-15 21:05] LABS: EOSINOPHILS % (MANUAL) 4 %; LYMPHOCYTES % (MANUAL) 19 %; MICROCYTOSIS SLIGHT; MONOCYTES % (MANUAL) 5 %; NEUTROPHILS % (MANUAL) 72 %
[2021-11-16] VITALS: BP 166/88
[2021-11-16 04:00] VITALS: BP 111/71
[2021-11-16 04:42] LABS: BASOPHILS # (AUTO) 0.1 10^3/uL (0.0-0.1); BASOPHILS % (AUTO) 1 % (0-10); EOSINOPHILS # (AUTO) 0.7 10^3/uL (0.0-0.3); EOSINOPHILS % (AUTO) 6 % (0-10); HEMATOCRIT 29 % (35-52); HEMOGLOBIN 9.2 g/dL (11.5-16.0); LYMPHOCYTES # (AUTO) 2.1 10^3/uL (1.0-4.0); LYMPHOCYTES % (AUTO) 19 % (12-44); MEAN CORPUSCULAR HEMOGLOBIN 27 pg (25-34); MEAN CORPUSCULAR HGB CONC 31 g/dL (32-36); MEAN CORPUSCULAR VOLUME 86 fL (80-99); MEAN PLATELET VOLUME 8.9 fL (9.0-12.2); MONOCYTES % (AUTO) 9 % (0-12); NEUTROPHILS # (AUTO) 7.1 10^3/uL (1.8-7.8); NEUTROPHILS % (AUTO) 64 % (42-75); PLATELET COUNT 416 10^3/uL (130-400); WHITE BLOOD COUNT 11.2 10^3/uL (4.3-11.0)
[2021-11-16 05:02] LABS: POTASSIUM 4.2 MMOL/L (3.6-5.0)
[2021-11-16 05:03] LABS: CALCIUM 8.2 MG/DL (8.5-10.1)
[2021-11-16 05:07] LABS: CREATININE SERUM 1.62 MG/DL (0.60-1.30)
[2021-11-16 05:11] LABS: ANISOCYTOSIS SLIGHT; BAND NEUTROPHILS 0 %; BASOPHILS % (MANUAL) 0 %; EOSINOPHILS % (MANUAL) 6 %; HYPOCHROMASIA SLIGHT; LYMPHOCYTES % (MANUAL) 16 %; MONOCYTES % (MANUAL) 4 %; NEUTROPHILS % (MANUAL) 74 %; POIKILOCYTOSIS SLIGHT; POLYCHROMASIA SLIGHT
[2021-11-16] MEDS: inSUlin ASPART (NovoLOG) 1 UNIT/0.01 ML (CHARGE PER UNIT) SC SCH ×2 (05:52→12:04)
[2021-11-16] MEDS: CATHETER FLUSH 10 ML SYR IVP SCH (05:52)
--- NOTE | 2021-11-16 07:51 | Diagnostic Imaging Report ---
INDICATION: Respiratory distress Study compared 11/15/2021. FINDINGS: 5 lobe interstitial opacities persist and have increased in density, suspicious for edema. The heart size itself is stable. No effusion or pneumothorax. IMPRESSION: Worsened interstitial opacities and Tessa B's favored to reflect progressive edema but no pleural fluid or pneumothorax. Dictated by: Dictated on workstation # [id number]
[2021-11-16 08:00] VITALS: BP 129/67
[2021-11-16] MEDS: APIXABAN 5 MG (ELIQUIS) TABLET PO SCH (08:13)
--- NOTE | 2021-11-16 09:08 | History & Physical ---
REJI BERMUDEZ A MED STUDENT 11/16/21 0908: History of Present Illness History of Present Illness Reason for visit/HPI 61 yo female who presented to ED from doctors office for Afib with RVR. Pt has past medical hx significant for paroxysmal afib with RVR, peripheral arterial disease, diabetes on insulin, HTN, hyperlipidemia and pnuemonia. Pt also was recently hospitalized at [facility] for stroke, DKA and pnuemonia. Pt reports she had an episode of afib on Sunday and then again at the doctors office yesterday. Pt reported to ED and was cardioverted with sinus rhythm after. Pt reports she currently feels fatigued, but better than yesterday. She does haves some cough and SOA, but reports this is normal for her. Pt denies fever, chills, chest pain, palpitations or generalized pain. Date of Admission November 15, 2021 at 10:50 Date Seen by a Provider: November 16, 2021 Time Seen by a Provider: 08:45 I consulted on this patient on 11/16/21 09:01 Attending Physician Wilma Reilly MD Admitting Physician Juan R Dodge V DO Consult Allergies and Home Medications Allergies Coded Allergies: ciprofloxacin (Verified Allergy, Mild, redness and itching , 12/04/18) redness and itching at iv site Patient Home Medication List Albuterol Sulfate (Proair Hfa) 1 Puff Puff, 2 PUFF IH Q4H PRN for SHORTNESS OF BREATH, (Reported) Entered as Reported by: JUAN R PEDROZA on 11/02/21 1647 Last Action: Reviewed Apixaban (Eliquis) 5 Mg Tablet, 5 MG PO BID, (Reported) Entered as Reported by: JUAN R PEDROZA on 11/02/21 1647 Last Action: Reviewed Atorvastatin Calcium (Atorvastatin Calcium) 40 Mg Tablet, 40 MG PO HS, (Reported) Entered as Reported by: JUAN R PEDROZA on 11/09/20 1153 Last Action: Reviewed Buspirone HCl (Buspirone HCl) 5 Mg Tablet, 5 MG PO BID, (Reported) Entered as Reported by: JUAN R PEDROZA on 11/04/21 1148 Last Action: Reviewed Calcitriol (Calcitriol) 0.25 Mcg Capsule, 0.25 MCG PO HS, (Reported) Entered as Reported by: ERROL DAVIS on 07/30/21330 Last Action: Reviewed Diltiazem HCl (Diltiazem 24Hr ER) 300 Mg Cap.er.24h, 300 MG PO HS Prescribed by: WILMA REILLY on 11/16/21 1101 Fluticasone/Umeclidin/Vilanter (Trelegy Ellipta 100-62.5-25) 1 Each Blst.w.dev, 1 EACH IH DAILY, (Reported) Entered as Reported by: ERROL DAVIS on 07/30/21330 Last Action: Reviewed Folic Acid (Folic Acid) 1 Mg Tablet, 1 MG PO DAILY, (Reported) Entered as Reported by: JUAN R PEDROZA on 11/15/211512 Last Action: Reviewed Gabapentin (Gabapentin) 100 Mg Capsule, 100 MG PO HS, (Reported) Entered as Reported by: EFE PATTERSON on 12/20/15 1348 Last Action: Reviewed Insulin Aspart (Insulin Aspart) 100 Unit/1 Ml Vial, UNITS SC AC, (Reported) Entered as Reported by: JUAN R PEDROZA on 11/09/20 1153 Last Action: Reviewed Insulin Determir (Levemir) 100 Unit/Ml Soln, 16 UNITS SQ DAILY, (Reported) Entered as Reported by: JUAN R PEDROZA on 11/02/211646 Last Action: Reviewed Insulin Determir (Levemir) 1,000 Units/10 Ml Soln, 7 UNITS SQ HS Prescribed by: TONG MAGALLON on 11/10/21 0605 Last Action: Reviewed Levothyroxine Sodium (Levothyroxine Sodium) 25 Mcg Tablet, 25 MCG PO DAILY, (Reported) Entered as Reported by: JUAN R PEDROZA on 11/02/211646 Last Action: Reviewed Levothyroxine Sodium (Levothyroxine Sodium) 200 Mcg Tablet, 200 MCG PO DAILY, (Reported) Entered as Reported by: JUAN R PEDROZA on 11/02/211646 Last Action: Reviewed Lisinopril (Lisinopril) 10 Mg Tablet, 10 MG PO HS, (Reported) Entered as Reported by: JUAN R PEDROZA on 11/15/211512 Last Action: Reviewed Meclizine HCl (Meclizine HCl) 12.5 Mg Tablet, 12.5 MG PO Q6H PRN for DIZZINESS, (Reported) Entered as Reported by: JUAN R PEDROZA on 11/02/211646 Last Action: Reviewed Montelukast Sodium (Montelukast Sodium) 10 Mg Tablet, 10 MG PO HS, (Reported) Entered as Reported by: ERROL DAVIS on 07/30/21330 Last Action: Reviewed Pantoprazole Sodium (Pantoprazole Sodium) 40 Mg Tablet.dr, 40 MG PO BID, (Reported) Entered as Reported by: JUAN R PEDROZA on 11/09/20 1153 Last Action: Reviewed Paroxetine HCl (Paroxetine HCl) 40 Mg Tablet, 40 MG PO DAILY, (Reported) Entered as Reported by: LUIS TOWNSEND on 11/30/15 1408 Last Action: Reviewed Discontinued Medications Clopidogrel Bisulfate (Clopidogrel) 75 Mg Tablet, 75 MG PO DAILY, (Reported) Discontinued Reason: No Longer Taking Entered as Reported by: JUAN R PEDROZA on 09/03/20 6259 Last Action: Discontinued Diltiazem HCl (Diltiazem 24Hr ER) 240 Mg Cap.er.24h, 240 MG PO HS, (Reported) Entered as Reported by: JUAN R PEDROZA on 11/02/211646 Last Action: Reviewed Folic Acid (Folic Acid) 1 Mg Tablet, 1 MG PO DAILY, (Reported) Discontinued Reason: No Longer Taking Entered as Reported by: UJAN R PEDROZA on 11/02/211646 Last Action: Discontinued Lisinopril (Lisinopril) 20 Mg Tablet, 10 MG PO HS, (Reported) Discontinued Reason: Prescription changed Entered as Reported by: ERROL DAVIS on 07/30/21330 Past Vwtycxd-Mnlpqi-Fkbkdi Hx Patient Social History Tobacco Use?: Yes Tobacco type used: Cigarettes Smoking Status: Current Everyday Smoker Smokeless Tobacco Frequency: Never a User Use of E-Cig and/or Vaping dev: No Substance use?: No Alcohol Use?: No Pt feels they are or have been: No Immunizations Up To Date Date of Influenza Vaccine: May 05, 2020 First/Initial COVID19 Vaccinat: jul 29 Second COVID19 Vaccination Rakesh: aug 29 Tetanus Booster (TDap): Unknown Hepatitis A: No Hepatitis B: No PED Vaccines UTD: No Date of Pneumonia Vaccine: Apr 02, 2013 Seasonal Allergies Seasonal Allergies: No Current Status status: No status: No Advance Directives: No Communicates: Verbally Primary Language: Malay Preferred Spoken Language: Malay Is interpretation needed?: No Sensory deficits: Vision impairment Implanted or Applied 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: 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 Past Medical History Surgeries: Abdominal, Cardiac, CABG, Gallbladder, 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, Oophorectomy, Orthopedic, Thyroidectomy, Vascular Surgery COPD Currently Using CPAP: No Currently Using BIPAP: No Atrial Fibrillation, Coronary Artery Disease, High Cholesterol, Hypertension, Peripheral Vascular Headaches /Migraines, Neuropathy, Stroke 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, Menopausal Sexually Transmitted Disease: No HIV/AIDS: No Gastroesophageal Reflux, Chronic Constipation, Chronic Diarrhea, Hiatal Hernia Degenerate Disk Disease, Chronic Back Pain Diabetes, Insulin dep, Hypothyroidsim Loss of Vision: Denies Hearing Impairment: Denies Anxiety, Depression Blood Disorders: No Adverse Reaction/Blood Tranf: No T1DM on insulin CKD3 Family Medical History Cancer G8 BROTHER, Onset:Unknown G8 BROTHER, Onset:Unknown Cancer of colon G8 BROTHER, Onset:Unknown Chest pain 19 MOTHER, Onset:Unknown Colon cancer Congestive heart failure 19 FATHER, Onset:60 years & older Family history: Alzheimer's disease 19 MOTHER, Onset:50's - 60 Family history: Arthritis 19 MOTHER, Onset:Unknown Family history: Asthma 19 FATHER, Onset:Unknown Family history: Cardiovascular disease 19 MOTHER, Onset:50's - 60 Family history: Coronary thrombosis 19 MOTHER, Onset:Unknown Family history: Diabetes mellitus 19 MOTHER, Onset:Unknown Family history: Hypertension 19 MOTHER, Onset:50's - 60 Family history: Thyroid disorder 19 MOTHER, Onset:50's - 60 Heart disease 19 MOTHER, Onset:50's - 60 Human immunodeficiency virus (HIV) seropositivity G8 BROTHER, Onset:40's - 50 Myocardial infarction 19 MOTHER, Onset:50's - 60 No Family History of: Abdominal aortic aneurysm Fidencio's disease Alcoholism Aphasia Cataract Congenital heart disease Cystic fibrosis Dementia Dysphagia Family history: Allergy Family history: Breast disease Family history: Gastrointestinal disease Family history: Glaucoma Family history: Osteoporosis Headache Hearing loss Hereditary disease History of - anemia History of - disorder History of - respiratory disease History of drug abuse Hypercholesterolemia Infertile Kidney disease Malignant neoplasm of lung Parkinson's disease Prostate cancer Psychotic disorder Seizure disorder Stroke Tuberculosis Visual impairment PSH: -RIGHT ILIAC ARTERY STENT -4 VESSEL CABG 12/2015 -RIGHT CAROTID ENDARTERECTOMY 12/2015 -TONSILLECTOMY -HYSTERECTOMY/BSO -LAPAROSCOPIC RENETTA FUNDOPLICATION -CERVICAL SPINE FUSION Review of Systems Constitutional: No chills, No fever EENTM: No blurred vision, No double vision Respiratory: cough, short of breath Cardiovascular: No chest pain, No palpitations Gastrointestinal: No abdominal pain, No constipation, No diarrhea, No nausea, No vomiting Genitourinary: No dysuria, No frequency Musculoskeletal: No back pain, No joint pain Skin: No change in color, No lesions Psychiatric/Neurological: Denies Anxiety, Denies Depressed Physical Exam Vital Signs Vital Signs - First Documented 11/15/21 11/16/21 09:11 00:00 Temp 36.3 Pulse 147 Resp 16 B/P (MAP) 91/47 (62) Pulse Ox 100 O2 Delivery Room Air O2 Flow Rate 2.00 Capillary Refill : Less Than 3 Seconds Height, Weight, BMI Height: 5'5.00" Weight: 125lbs. 0.0oz. 56.988938ps; 19.72 BMI Method:Stated General Appearance: No Apparent Distress, Thin HEENT: PERRL/EOMI, Normal ENT Inspection Neck: Full Range of Motion, Normal Inspection, Non Tender, Supple Respiratory: Chest Non Tender, Lungs Clear, Normal Breath Sounds, No Accessory Muscle Use, No Respiratory Distress Cardiovascular: Regular Rate, Rhythm, No Murmur Gastrointestinal: Normal Bowel Sounds, Non Tender, Soft Rectal: Deferred Extremity: Normal Capillary Refill, Normal Inspection, Normal Range of Motion, Non Tender, No Calf Tenderness, No Pedal Edema Neurologic/Psychiatric: Alert, Oriented x3, No Motor/Sensory Deficits, Normal Mood/Affect Skin: Normal Color, Warm/Dry Lymphatic: No Adenopathy Assessment/Plan Assessment and Plan Afib with RVR Anemia Recent hospitalization for stroke, PNA and DKA Diabetes on insulin HTN CAD s/p CABG PAD COPD Tobacco use Afib with RVR s/p cardioversion -Currently in sinus rhythm -Cardizem and Eliquis -Cardiology consulted and managing, appreciate their recs Anemia -1 unit transfused -Hgb 9.2 trending up Recent hospitalization for stroke, PNA and DKA -CXR shows no signs of pnuemonia Diabetes on insulin -SSI -Pt unsure of last Hgb A1c HTN -Was hypotensive, currently normotensive -Hold home meds CAD s/p CABG -Cardiology consulted, appreciate their recs PAD COPD -MAT protocol Tobacco use -Encouraged abstinence DVT prophylaxis- Eliquis Diet- Regular GAULT,WILMA R MD 11/16/21 1727: Allergies and Home Medications Allergies Coded Allergies: ciprofloxacin (Verified Allergy, Mild, redness and itching , 12/04/18) redness and itching at iv site Patient Home Medication List Home Medication List Reviewed: Yes Albuterol Sulfate (Proair Hfa) 1 Puff Puff, 2 PUFF IH Q4H PRN for SHORTNESS OF BREATH, (Reported) Entered as Reported by: JUAN R PEDROZA on 11/02/21 164 Last Action: Reviewed Apixaban (Eliquis) 5 Mg Tablet, 5 MG PO BID, (Reported) Entered as Reported by: JUAN R PEDROZA on 11/02/21 164 Last Action: Reviewed Atorvastatin Calcium (Atorvastatin Calcium) 40 Mg Tablet, 40 MG PO HS, (Reported) Entered as Reported by: JUAN R PEDROZA on 11/09/20 1153 Last Action: Reviewed Buspirone HCl (Buspirone HCl) 5 Mg Tablet, 5 MG PO BID, (Reported) Entered as Reported by: JUAN R PEDROZA on 11/04/21 1148 Last Action: Reviewed Calcitriol (Calcitriol) 0.25 Mcg Capsule, 0.25 MCG PO HS, (Reported) Entered as Reported by: ERROL DAVIS on 07/30/21330 Last Action: Reviewed Diltiazem HCl (Diltiazem 24Hr ER) 300 Mg Cap.er.24h, 300 MG PO HS Prescribed by: WILMA REILLY on 11/16/21 1101 Fluticasone/Umeclidin/Vilanter (Trelegy Ellipta 100-62.5-25) 1 Each Blst.w.dev, 1 EACH IH DAILY, (Reported) Entered as Reported by: ERROL DAVIS on 07/30/21 033 Last Action: Reviewed Folic Acid (Folic Acid) 1 Mg Tablet, 1 MG PO DAILY, (Reported) Entered as Reported by: JUAN R PEDROZA on 11/15/21 1513 Last Action: Reviewed Gabapentin (Gabapentin) 100 Mg Capsule, 100 MG PO HS, (Reported) Entered as Reported by: EFE PATTERSON on 12/20/15 1348 Last Action: Reviewed Insulin Aspart (Insulin Aspart) 100 Unit/1 Ml Vial, UNITS SC AC, (Reported) Entered as Reported by: JUAN R PEDROZA on 11/09/20 1153 Last Action: Reviewed Insulin Determir (Levemir) 100 Unit/Ml Soln, 16 UNITS SQ DAILY, (Reported) Entered as Reported by: JUAN R PEDROZA on 11/02/211646 Last Action: Reviewed Insulin Determir (Levemir) 1,000 Units/10 Ml Soln, 7 UNITS SQ HS Prescribed by: TONG MAGALLON on 11/10/21 0605 Last Action: Reviewed Levothyroxine Sodium (Levothyroxine Sodium) 25 Mcg Tablet, 25 MCG PO DAILY, (Reported) Entered as Reported by: JUAN R PEDROZA on 11/02/211646 Last Action: Reviewed Levothyroxine Sodium (Levothyroxine Sodium) 200 Mcg Tablet, 200 MCG PO DAILY, (Reported) Entered as Reported by: JUAN R PEDROZA on 11/02/211646 Last Action: Reviewed Lisinopril (Lisinopril) 10 Mg Tablet, 10 MG PO HS, (Reported) Entered as Reported by: JUAN R PEDROZA on 11/15/211512 Last Action: Reviewed Meclizine HCl (Meclizine HCl) 12.5 Mg Tablet, 12.5 MG PO Q6H PRN for DIZZINESS, (Reported) Entered as Reported by: JUAN R PEDROZA on 11/02/211646 Last Action: Reviewed Montelukast Sodium (Montelukast Sodium) 10 Mg Tablet, 10 MG PO HS, (Reported) Entered as Reported by: ERROL DAVIS on 07/30/21 0331 Last Action: Reviewed Pantoprazole Sodium (Pantoprazole Sodium) 40 Mg Tablet.dr, 40 MG PO BID, (Reported) Entered as Reported by: JUAN R PEDROZA on 11/09/20 115 Last Action: Reviewed Paroxetine HCl (Paroxetine HCl) 40 Mg Tablet, 40 MG PO DAILY, (Reported) Entered as Reported by: LUIS TOWNSEND on 11/30/15 140 Last Action: Reviewed Discontinued Medications Clopidogrel Bisulfate (Clopidogrel) 75 Mg Tablet, 75 MG PO DAILY, (Reported) Discontinued Reason: No Longer Taking Entered as Reported by: JUAN R PEDROZA on 09/03/20 5343 Last Action: Discontinued Diltiazem HCl (Diltiazem 24Hr ER) 240 Mg Cap.er.24h, 240 MG PO HS, (Reported) Entered as Reported by: JUAN R PEDROZA on 11/02/211646 Last Action: Reviewed Folic Acid (Folic Acid) 1 Mg Tablet, 1 MG PO DAILY, (Reported) Discontinued Reason: No Longer Taking Entered as Reported by: JUAN R PEDROZA on 11/02/211646 Last Action: Discontinued Lisinopril (Lisinopril) 20 Mg Tablet, 10 MG PO HS, (Reported) Discontinued Reason: Prescription changed Entered as Reported by: ERROL DAVIS on 07/30/21 0331 Past Ibfcfzy-Jomoiz-Nxkoad Hx Patient Social History Living Status: Lives independently at home Family Medical History Cancer G8 BROTHER, Onset:Unknown G8 BROTHER, Onset:Unknown Cancer of colon G8 BROTHER, Onset:Unknown Chest pain 19 MOTHER, Onset:Unknown Colon cancer Congestive heart failure 19 FATHER, Onset:60 years & older Family history: Alzheimer's disease 19 MOTHER, Onset:50's - 60 Family history: Arthritis 19 MOTHER, Onset:Unknown Family history: Asthma 19 FATHER, Onset:Unknown Family history: Cardiovascular disease 19 MOTHER, Onset:50's - 60 Family history: Coronary thrombosis 19 MOTHER, Onset:Unknown Family history: Diabetes mellitus 19 MOTHER, Onset:Unknown Family history: Hypertension 19 MOTHER, Onset:50's - 60 Family history: Thyroid disorder 19 MOTHER, Onset:50's - 60 Heart disease 19 MOTHER, Onset:50's - 60 Human immunodeficiency virus (HIV) seropositivity G8 BROTHER, Onset:40's - 50 Myocardial infarction 19 MOTHER, Onset:50's - 60 No Family History of: Abdominal aortic aneurysm [place]'s disease Alcoholism Aphasia Cataract Congenital heart disease Cystic fibrosis Dementia Dysphagia Family history: Allergy Family history: Breast disease Family history: Gastrointestinal disease Family history: Glaucoma Family history: Osteoporosis Headache Hearing loss Hereditary disease History of - anemia History of - disorder History of - respiratory disease History of drug abuse Hypercholesterolemia Infertile Kidney disease Malignant neoplasm of lung Parkinson's disease Prostate cancer Psychotic disorder Seizure disorder Stroke Tuberculosis Visual impairment Review of Systems Constitutional: malaise Respiratory: cough, short of breath Cardiovascular: palpitations (That are resolved) Physical Exam General Appearance: No Apparent Distress, Thin HEENT: PERRL/EOMI Neck: Full Range of Motion, Non Tender, Supple Respiratory: Chest Non Tender, Lungs Clear, Normal Breath Sounds, No Accessory Muscle Use, No Respiratory Distress Cardiovascular: Regular Rate, Rhythm, No Edema, No Murmur Gastrointestinal: Normal Bowel Sounds, Non Tender, Soft Extremity: Normal Capillary Refill, Normal Inspection, Non Tender, No Calf Tenderness, No Pedal Edema Neurologic/Psychiatric: Alert, Oriented x3, No Motor/Sensory Deficits, Normal 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 I reviewed and verified all information documented by the medical student and made modifications to such information, when appropriate. I personally performed the physical exam and medical decision making. Wilma Reilly, November 16, 2021,17:26 Atrial Fibrillation with RVR CAD Subacute CVA CKD Tobacco Abuse REJI BERMUDEZ A MED STUDENT November 16, 2021 09:08 WILMA REILLY MD November 16, 2021 17:27
[2021-11-16 10:00] VITALS: BP 137/69
--- NOTE | 2021-11-16 10:27 | Progress Note - Cardiology ---
Cardiology SOAP Progress Note Subjective: No cp or palp or syncope or shortness of breath Gen weakness and malaise, chronic, unchanged No n/v/d Objective: I&O/Vital Signs 11/16/21 11/16/21 11/16/21 11/16/21 00:00 00:00 01:00 04:00 Temp 37.2 37.0 Pulse 84 84 Resp 16 B/P (MAP) 166/88 (114) Pulse Ox 96 O2 Delivery Nasal Cannula O2 Flow Rate 2.00 11/16/21 11/16/21 11/16/21 11/16/21 04:00 07:00 07:55 08:00 Temp 36.8 Pulse 133 145 80 Resp 15 B/P (MAP) 111/71 (84) Pulse Ox 92 O2 Delivery Nasal Cannula O2 Flow Rate 2.00 11/16/21 11/16/21 08:00 10:00 Pulse 79 80 Resp 18 26 B/P (MAP) 129/67 (87) 137/69 (91) Pulse Ox 97 95 O2 Delivery Nasal Cannula Nasal Cannula O2 Flow Rate 2.00 2.00 11/16/21 00:00 Intake Total 1510 ml Balance 1510 ml Weight (Pounds): 125 Weight (Ounces): 0.0 Weight (Calculated Kilograms): 56.382998 Constitutional: AAO x 3, well-developed, other (thin) Respiratory: No accessory muscle use, No respiratory distress; chest expansion is symmetric, chest is bilaterally symmetric, lungs clear to auscultation, other (prolonged exp phase) Cardiovascular: regular rate-rhythm; No JVD; S1 and S2 Gastrointestional: No tender; soft, round, audible bowel sounds Extremities: no lower extremity edema bilateral Neurologic/Psychiatric: other (LUE/LLE 4/5; ) Skin: No rash on exposed areas, No ulcerations on exposed areas Results/Procedures: Labs Laboratory Tests 11/15/21 16:10: Glucometer 151H 11/15/21 20:18: White Blood Count 12.0H, Red Blood Count 3.30L, Hemoglobin 8.9L, Hematocrit 28L, Mean Corpuscular Volume 86, Mean Corpuscular Hemoglobin 27, Mean Corpuscular Hemoglobin Concent 31L, Red Cell Distribution Width 15.9H, Platelet Count 388, Mean Platelet Volume 9.0, Immature Granulocyte % (Auto) 1, Neutrophils (%) (Auto) 68, Lymphocytes (%) (Auto) 17, Monocytes (%) (Auto) 9, Eosinophils (%) (Auto) 5, Basophils (%) (Auto) 1, Neutrophils # (Auto) 8.1H, Lymphocytes # (Auto) 2.1, Monocytes # (Auto) 1.0, Eosinophils # (Auto) 0.6H, Basophils # (Auto) 0.1, Immature Granulocyte # (Auto) 0.1, Neutrophils % (Manual) 72, Lymphocytes % (Manual) 19, Monocytes % (Manual) 5, Eosinophils % (Manual) 4, Microcytosis SLIGHT 11/15/21 20:39: Glucometer 277H 11/16/21 04:30: White Blood Count 11.2H, Red Blood Count 3.39L, Hemoglobin 9.2L, Hematocrit 29L, Mean Corpuscular Volume 86, Mean Corpuscular Hemoglobin 27, Mean Corpuscular Hemoglobin Concent 31L, Red Cell Distribution Width 16.0H, Platelet Count 416H, Mean Platelet Volume 8.9L, Immature Granulocyte % (Auto) 1, Neutrophils (%) (Auto) 64, Lymphocytes (%) (Auto) 19, Monocytes (%) (Auto) 9, Eosinophils (%) (Auto) 6, Basophils (%) (Auto) 1, Neutrophils # (Auto) 7.1, Lymphocytes # (Auto) 2.1, Monocytes # (Auto) 1.0, Eosinophils # (Auto) 0.7H, Basophils # (Auto) 0.1, Immature Granulocyte # (Auto) 0.1, Neutrophils % (Manual) 74, Lymphocytes % (Manual) 16, Monocytes % (Manual) 4, Eosinophils % (Manual) 6, Basophils % (Manual) 0, Band Neutrophils 0, Polychromasia SLIGHT, Hypochromasia SLIGHT, Poikilocytosis SLIGHT, Anisocytosis SLIGHT, Sodium Level 140, Potassium Level 4.2, Chloride Level 105, Carbon Dioxide Level 21, Anion Gap 14, Blood Urea Nitrogen 35H, Creatinine 1.62H, Estimat Glomerular Filtration Rate 36, BUN/Creatinine Ratio 22, Glucose Level 319H, Calcium Level 8.2L Laboratory Tests 11/15/21 09:40 11/15/21 20:18 11/16/21 04:30 A/P: Assessment: PAF - OAC with Eliquis - Cadizem CD increased to 300 mg daily on 11/15/21 Anemia of undetermined etiology - management per Medical services S/P Recent hospitalization at [facility] d/t sepsis, DKA and renal failure - recently discharged from In pt rehab at this facility in Oct & November 2021 CVA - Acute to subacute, 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 Crenshaw's note of 10-29-21 ([facility]) - Residual LUE, LLE weakness and left sided facial droop CAD, s/p CABG - Cardiac cath of 12-28-15 showed severe MVD, LVEF 60%, elevated LVEDP. CABG x 4 on 12-30-[address] Doherty at [facility]: 1. PAUL to LAD, reverse saphenous vein graft to OM2, sequential to RPDA and reverse saphenous vein graft to diagonal 2. Excision of the aortic cusp fibroelastoma - MPI of 03-15-21: no evidence of significant ischemia or infarction, LVEF 60% - Echo of 03-08-21 showed mod concentric hypertrophy. LVEF 70-75%. No regional wall motion abnormalities. Grade 2 diastolic dysfunction. Mitral valve annulus mild to mod calcified with mild to mod regurg. Mild AoV stenosis. Mod TR. PASP 50-55mmHg Right CEA on 12-30-15 at the time of CABG by Dr. Doherty - carotid u/s of Jul 2018 showed mild carotid arterial disease PAD and claudication (L>R) - S/p 7x60 mm stenting of the R common iliac (post-dilated with an 8 mm balloon) on 08/15/16 that has resulted in resolution of R leg claudication. There is two- vessel runoff in the legs with mod to severe diffuse disease - Seg pressures of September 2020: mod obstructive PAD of the R lower limb and severe distal disease of the L lower limb - Arterial doppler of 10-28-21 at [facility] showed mild to mod diffuse bilat leg calcified plaque with no acute occlusion or high-grade stenosis. The left leg arteri GI - S/P cholecystectomy COPD - managed by PCP Tobacco use (1PPD) -cessation is advised DM I - complicated by CKD 3 CKD 3 - followed by PCP who has referred her to Nephrology in [place] (Feb 2021) Hyperlipidemia - treated with atorvastatin (Dr Sanchez following blood work) Hypertension - with evidence of LVH on ECG Palpitations - Zio monitor of 06-18-17 to 07-02-17 showed very brief episodes of SVT with the fastest lasting 7 beats at 214 bpm - PAF diagnosed on an ER visit of 07/29/21 Plan: * Given PAF and recent thromboembolic stroke, risk for recurrent thromboembolic stroke is high if taken off Eliquis. Nevertheless, would be reasonable to hold on Eliquis for 48 hour if that is needed to pursue a GI w/u. If a bleeding source is the cause of her anemia, we recommend that it be found and treated expeditiously. Pt needs alf oral anticoag for stroke prophylaxis. I discussed this issue in detail with the patient * We have increased long-acting diltiazem for better control of PAF & RVR * Monitor labs THOMAS SHAW MD FACP FAC CCDS November 16, 2021 10:27
[2021-11-16 11:00] VITALS: BP 154/92
[2021-11-16] MEDS ORDERED: DILT300C52 PO (11:01)
--- NOTE | 2021-11-16 11:01 | Discharge Summary ---
REJI BERMUDEZ A MED STUDENT 11/16/21 1101: Diagnosis/Chief Complaint Date of Admission November 15, 2021 at 10:50 Date of Discharge Discharge Date: November 16, 2021 Admission Diagnosis Admission Diagnosis Afib with RVR Discharge Diagnosis Afib with RVR Reason Hospital Visit 61 yo female who presented to ED from doctors office for Afib with RVR. Pt has past medical hx significant for paroxysmal afib with RVR, peripheral arterial disease, diabetes on insulin, HTN, hyperlipidemia and pnuemonia. Pt also was recently hospitalized at [facility] for stroke, DKA and pnuemonia. Pt reports she had an episode of afib on Sunday and then again at the doctors office yesterday. Pt reported to ED and was cardioverted with sinus rhythm after. Pt reports she currently feels fatigued, but better than yesterday. She does haves some cough and SOA, but reports this is normal for her. Pt denies fever, chills, chest pain, palpitations or generalized pain. Discharge Summary Hospital Course Hospital Course 61 yo female who presented to ED from doctors office for Afib with RVR. Pt has past medical hx significant for paroxysmal afib with RVR, peripheral arterial disease, diabetes on insulin, HTN, hyperlipidemia and pnuemonia. Pt also was recently hospitalized at [facility] for stroke, DKA and pnuemonia. Pt reported she had an episode of afib on Sunday and then again at the doctors office yesterday. Pt reported to ED in Afib with RVR and hypotension and was cardioverted to n ormal sinus rhythm. Pts hypotension resolved after cardioversion. Pt was put on cardizem 300mg and Eliquis 5mg. Pt remained in normal sinus rhythm with a few subjective episodes of Afib throughout the night. Pt's blood pressures remained stable. The pt was determined to be stable for discharge. Labs Laboratory Tests 11/15/21 09:25: Iron Level 21L, Transferrin % Saturation 9L, B-Type Natriuretic Peptide 1468.9H 11/15/21 09:40: White Blood Count 12.2H, Red Blood Count 2.88L, Hemoglobin 7.8L, Hematocrit 26L, Mean Corpuscular Hemoglobin Concent 31L, Red Cell Distribution Width 15.6H, Pl atelet Count 427H, Neutrophils # (Auto) 8.7H, Monocytes # (Auto) 1.1H, Eosinophils # (Auto) 0.4H, Blood Urea Nitrogen 41H, Creatinine 1.60H, Glucose Level 207H, Aspartate Amino Transf (AST/SGOT) 44H, Alanine Aminotransferase (ALT/SGPT) 69H, Alkaline Phosphatase 213H, C-Reactive Protein High Sensitivity 3.18H, Total Protein 6.0L, Albumin 2.7L 11/15/21 16:10: Glucometer 151H 11/15/21 20:18: White Blood Count 12.0H, Red Blood Count 3.30L, Hemoglobin 8.9L, Hematocrit 28L, Mean Corpuscular Hemoglobin Concent 31L, Red Cell Distribution Width 15.9H, Neutrophils # (Auto) 8.1H, Eosinophils # (Auto) 0.6H 11/15/21 20:39: Glucometer 277H 11/16/21 04:30: White Blood Count 11.2H, Red Blood Count 3.39L, Hemoglobin 9.2L, Hematocrit 29L, Mean Corpuscular Hemoglobin Concent 31L, Red Cell Distribution Width 16.0H, Platelet Count 416H, Mean Platelet Volume 8.9L, Eosinophils # (Auto) 0.7H, Blood Urea Nitrogen 35H, Creatinine 1.62H, Glucose Level 319H, Calcium Level 8.2L Procedures None. Discharge Physical Examination Allergies: Coded Allergies: ciprofloxacin (Verified Allergy, Mild, redness and itching , 12/04/18) redness and itching at iv site Vitals & I&Os Vital Signs Date Time Temp Pulse Resp B/P (MAP) Pulse Ox O2 Delivery O2 Flow Rate FiO2 11/16/21 10:00 80 26 137/69 (91) 95 Nasal Cannula 2.00 11/16/21 08:00 36.8 General Appearance: Alert, Oriented X3 HEENT: Atraumatic, PERRLA Respiratory: Clear to Auscultation, Normal Air Movement Cardiovascular: Regular Rate, Normal S1, Normal S2 Abdominal: Normal Bowel Sounds, Soft Extremities: No Clubbing, No Cyanosis Skin: No Rashes, No Breakdown Neuro: Normal Gait, Normal Speech Psych/Mental Status: Mental Status NL, Mood NL Discussion & Recommendations Afib with RVR -Cardizem 300mg and Eliquis 5mg F/u with Dr. Dodge at [facility] within the next few weeks Dr. Jeffries saw pt and is recommending EP referral. Discharge Home Medications Reviewed and agree with Discharge Medication list on patient's Discharge Instruction sheet Instructions to Patient/Family Please see electronic discharge instructions given to patient. WILMA REILLY MD 11/16/21 1728: Discharge Summary Discharge Physical Examination Allergies: Coded Allergies: ciprofloxacin (Verified Allergy, Mild, redness and itching , 12/04/18) redness and itching at iv site Supervisory-Addendum Brief Verification & Attestation Participated in pt care: history, physical Personally performed: exam, history Care discussed with: Medical Student Procedures: n/a Verification and Attestation of Medical Student E/M Service A medical student performed and documented this service in my presence. I reviewed and verified all information documented by the medical student and made modifications to such information, when appropriate. I personally performed the physical exam and medical decision making. Wilma Reilly, November 16, 2021,17:28 REJI BERMUEDZ MED STUDENT November 16, 2021 11:01 WILMA REILLY MD November 16, 2021 17:28
--- NOTE | 2021-11-16 11:02 | Discharge Summary ---
Discharge [facility] Reconcile Patient Problems Problems Reviewed?: Yes Discharge Medications New, Converted or Re-Newed RX: Transmitted to Pharmacy New Medications: Diltiazem HCl (Diltiazem 24Hr ER) 300 Mg Cap.er.24h 300 MG PO HS, #30 CAP Continued Medications: Albuterol Sulfate (Proair Hfa) 1 Puff Puff 2 PUFF IH Q4H PRN for SHORTNESS OF BREATH, EA Apixaban (Eliquis) 5 Mg Tablet 5 MG PO BID, TAB Atorvastatin Calcium (Atorvastatin Calcium) 40 Mg Tablet 40 MG PO HS, TAB LAST FILLED 05-24-2021 #60/60 DAY SUPPLY Buspirone HCl (Buspirone HCl) 5 Mg Tablet 5 MG PO BID, TAB LAST FILLED 05-24-2021 #120/60 DAY SUPPLY Calcitriol (Calcitriol) 0.25 Mcg Capsule 0.25 MCG PO HS, CAP LAST FILLED 09-16-2021 #30/30 DAY SUPPLY Fluticasone/Umeclidin/Vilanter (Trelegy Ellipta 100-62.5-25) 1 Each Blst.w.dev 1 EACH IH DAILY Folic Acid (Folic Acid) 1 Mg Tablet 1 MG PO DAILY, TAB Gabapentin (Gabapentin) 100 Mg Capsule 100 MG PO HS, CAP Insulin Aspart (Insulin Aspart) 100 Unit/1 Ml Vial UNITS SC AC, UNITS Insulin Determir (Levemir) 100 Unit/Ml Soln 16 UNITS SQ DAILY, EA Insulin Determir (Levemir) 1,000 Units/10 Ml Soln 7 UNITS SQ HS for 14 Days, EA Levothyroxine Sodium (Levothyroxine Sodium) 25 Mcg Tablet 25 MCG PO DAILY, TAB TAKES 25MCG +200MCG TOGETHER TO EQUAL 225MCG Levothyroxine Sodium (Levothyroxine Sodium) 200 Mcg Tablet 200 MCG PO DAILY, TAB TAKES 25MCG +200MCG TOGETHER TO EQUAL 225MCG Lisinopril (Lisinopril) 10 Mg Tablet 10 MG PO HS, TAB Meclizine HCl (Meclizine HCl) 12.5 Mg Tablet 12.5 MG PO Q6H PRN for DIZZINESS, TAB Montelukast Sodium (Montelukast Sodium) 10 Mg Tablet 10 MG PO HS, TAB Pantoprazole Sodium (Pantoprazole Sodium) 40 Mg Tablet.dr 40 MG PO BID, TAB LAST FILLED 05-24-2022 #180/90 DAY SUPPLY Paroxetine HCl (Paroxetine HCl) 40 Mg Tablet 40 MG PO DAILY, TAB Discontinued Medications: Diltiazem HCl (Diltiazem 24Hr ER) 240 Mg Cap.er.24h 240 MG PO HS, CAP Patient Instructions Goal/Follow Up Appt: F.u with PCP Dr Dodge in 1-2 weeks F.u with Cardiology Activity & Diet Discharge Diet: ADA Diet, Cardiac Diet Activity as Tolerated: Yes Copy Copies To 1: JUAN R DODGE HOLLY R MD November 16, 2021 11:02
== END 2021-11-16 12:40 | disposition home or self-care (01) ==
LOC: EDUNIT# 09:11 → ER 09:12 → CSD 10:50
PROVIDERS: ADMIT Family Medicine; ATTEND Family Medicine
DX: I48.91 Unspecified atrial fibrillation (principal); D64.9 Anemia, unspecified; E11.10 Type 2 diabetes mellitus with ketoacidosis without coma; I25.10 Atherosclerotic heart disease of native coronary artery without angina pectoris; I10 Essential (primary) hypertension; Z79.4 Long term (current) use of insulin; I73.9 Peripheral vascular disease, unspecified; J44.9 Chronic obstructive pulmonary disease, unspecified; F17.210 Nicotine dependence, cigarettes, uncomplicated; Z86.73 Personal history of transient ischemic attack (TIA), and cerebral infarction without residual deficits; Z79.899 Other long term (current) drug therapy
CPT/HCPCS: 36415; 36430; 71045; 80048; 80053; 82728; 82947; 83540; 83550; 83880; 84484; 85007; 85025; 85027; 86141; 86850; 86900; 86901; 86920; 93005; 96372; 96376

== ENCOUNTER 2021-11-30 14:12 | Outpatient (RCR) | payer OTHER ==
[~2021-11-30 14:12] MED LIST changes: +DILT300C52 PO; +LISI10TA25 PO
== END 2021-12-06 | disposition home or self-care (01) ==
PROVIDERS: ATTEND Pediatrics
DX: R26.89 Other abnormalities of gait and mobility (principal); I11.9 Hypertensive heart disease without heart failure; E11.9 Type 2 diabetes mellitus without complications; J43.9 Emphysema, unspecified; Z86.73 Personal history of transient ischemic attack (TIA), and cerebral infarction without residual deficits

== ENCOUNTER 2021-12-26 13:12 | Outpatient (RCR) | payer OTHER | END 2022-01-05 | disposition home or self-care (01) | PROVIDERS: ATTEND Pediatrics | DX: R26.89 Other abnormalities of gait and mobility (principal); I11.9 Hypertensive heart disease without heart failure; E11.9 Type 2 diabetes mellitus without complications; J43.9 Emphysema, unspecified; Z86.73 Personal history of transient ischemic attack (TIA), and cerebral infarction without residual deficits ==

== ENCOUNTER 2022-01-24 14:32 | Emergency (ER) | payer OTHER ==
[~2022-01-24] VITALS: Ht 165.1 cm; Wt 51.2 kg
--- NOTE | 2022-01-24 14:47 | ED Neurological Problem ---
General Stated Complaint: POSSIBLE STROKE Source: patient, family Exam Limitations: no limitations History of Present Illness Date Seen by Provider: Jan 24, 2022 Time Seen by Provider: 14:37 Initial Comments Here with 2 to 3 days of increasing weakness. Patient has been sleeping a lot more. She went to get carotid artery ultrasound today and was noted to have some difficulty with walking. That seems to be new since yesterday. She did have stroke within the last 2 months. She is diabetic. States that she has not been eating or drinking well. Does complain of mild headache. Denies runny nose, sore throat or cough. She has been vaccinated and had 1 booster. She has not had COVID previously. She does have port placed for poor access. She does have history of chronic kidney disease. Timing/Duration: other (2 to 3 days and getting worse) Severity: moderate Associated Symptoms: confusion, fatigue; No fever/chills, No nausea/vomiting, No paresthesia, No slurred speech; trouble walking, weakness Allergies and Home Medications Allergies Coded Allergies: ciprofloxacin (Verified Allergy, Mild, redness and itching , 12/04/18) redness and itching at iv site Patient Home Medication List Home Medication List Reviewed: Yes Albuterol Sulfate (Proair Hfa) 1 Puff Puff, 2 PUFF IH Q4H PRN for SHORTNESS OF BREATH, (Reported) Entered as Reported by: JUAN R PEDROZA on 11/02/21 1647 Apixaban (Eliquis) 5 Mg Tablet, 5 MG PO BID, (Reported) Entered as Reported by: JUAN R PEDROZA on 11/02/21 1647 Atorvastatin Calcium (Atorvastatin Calcium) 40 Mg Tablet, 40 MG PO HS, (Reported) Entered as Reported by: JUAN R PEDROZA on 11/09/20 1153 Buspirone HCl (Buspirone HCl) 5 Mg Tablet, 5 MG PO BID, (Reported) Entered as Reported by: JUAN R PEDROZA on 11/04/21 1148 Calcitriol (Calcitriol) 0.25 Mcg Capsule, 0.25 MCG PO HS, (Reported) Entered as Reported by: ERROL DAVIS on 07/30/21 0331 Cefdinir (Cefdinir) 300 Mg Capsule, 300 MG PO BID Prescribed by: SAKINA DUARTE on 01/24/22 1655 Diltiazem HCl (Diltiazem 24Hr ER) 300 Mg Cap.er.24h, 300 MG PO HS Prescribed by: WILMA REILLY on 11/16/21 1101 Fluticasone/Umeclidin/Vilanter (Trelegy Ellipta 100-62.5-25) 1 Each Blst.w.dev, 1 EACH IH DAILY, (Reported) Entered as Reported by: ERROL DAVIS on 07/30/21 033 Folic Acid (Folic Acid) 1 Mg Tablet, 1 MG PO DAILY, (Reported) Entered as Reported by: JUAN R PEDROZA on 11/15/21 151 Gabapentin (Gabapentin) 100 Mg Capsule, 100 MG PO HS, (Reported) Entered as Reported by: EFE PATTERSON on 12/20/15 1348 Insulin Aspart (Insulin Aspart) 100 Unit/1 Ml Vial, UNITS SC AC, (Reported) Entered as Reported by: JUAN R PEDROZA on 11/09/20 1153 Insulin Determir (Levemir) 100 Unit/Ml Soln, 16 UNITS SQ DAILY, (Reported) Entered as Reported by: JUAN R PEDROZA on 11/02/21 164 Insulin Determir (Levemir) 1,000 Units/10 Ml Soln, 7 UNITS SQ HS Prescribed by: TONG MAGALLON on 11/10/21 0605 Levothyroxine Sodium (Levothyroxine Sodium) 25 Mcg Tablet, 25 MCG PO DAILY, (Reported) Entered as Reported by: JUAN R PEDROZA on 11/02/21 164 Levothyroxine Sodium (Levothyroxine Sodium) 200 Mcg Tablet, 200 MCG PO DAILY, (Reported) Entered as Reported by: JUAN R PEDROZA on 11/02/21 164 Lisinopril (Lisinopril) 10 Mg Tablet, 10 MG PO HS, (Reported) Entered as Reported by: JUAN R PEDROZA on 11/15/21 151 Meclizine HCl (Meclizine HCl) 12.5 Mg Tablet, 12.5 MG PO Q6H PRN for DIZZINESS, (Reported) Entered as Reported by: JUAN R PEDROZA on 11/02/21 164 Montelukast Sodium (Montelukast Sodium) 10 Mg Tablet, 10 MG PO HS, (Reported) Entered as Reported by: ERROL DAVIS on 1/22/22 0331 Pantoprazole Sodium (Pantoprazole Sodium) 40 Mg Tablet.dr, 40 MG PO BID, (Reported) Entered as Reported by: JUAN R PEDROZA on 11/09/20 1153 Paroxetine HCl (Paroxetine HCl) 40 Mg Tablet, 40 MG PO DAILY, (Reported) Entered as Reported by: LUIS TOWNSEND on 11/30/15 1408 Discontinued Medications Metronidazole (Metronidazole) 500 Mg Tablet, 500 MG PO TID Prescribed by: SAKINA DUARTE on 01/24/22 1655 Last Action: Discontinued Review of Systems Review of Systems Constitutional: see HPI; No chills, No fever Eyes: Denies Vision Changes; Glasses Ears, Nose, Mouth, Throat: no symptoms reported Respiratory: No cough, No hemoptysis; short of breath Cardiovascular: No chest pain, No edema Gastrointestinal: No nausea, No vomiting Genitourinary: decreased output; No dysuria, No frequency Musculoskeletal: No back pain, No muscle pain; muscle weakness Psychiatric/Neurological: Cognitive Dysfunction; Denies Numbness, Denies Tingling Endocrine: No Symptoms Reported All Other Systems Reviewed Negative Unless Noted: Yes Past Ayxigbr-Mtjfba-Sitluc Hx Patient Social History Tobacco Use?: Yes Tobacco type used: Cigarettes Use of E-Cig and/or Vaping dev: No Substance use?: No Alcohol Use?: Yes Alcohol Frequency: Once in a while Immunizations Up To Date Tetanus Booster (TDap): Unknown PED Vaccines UTD: No First/Initial COVID19 Vaccinat: jul 29 Second COVID19 Vaccination Rakesh: aug 29 Third COVID19 Vaccination Date: 07/2020 Seasonal Allergies Seasonal Allergies: No Past Medical History Surgery/Hospitalization HX: GALL BLADDER, UTI Surgeries: Yes Abdominal, Cardiac, CABG, Gallbladder, 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, Oophorectomy, Orthopedic, Thyroidectomy, Vascular Surgery Respiratory: Yes COPD Currently Using CPAP: No Currently Using BIPAP: No Cardiac: Yes (RIGHT ILIAC STENT; 4 VESSEL CABG AND RIGHT CAROTID ENDARTERECTOMY 12/2015) Atrial Fibrillation, Coronary Artery Disease, High Cholesterol, Hypertension, Peripheral Vascular Neurological: Yes Headaches /Migraines, Neuropathy, Stroke Reproductive Disorders: No Female Reproductive Disorders: Denies [employer] 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, Menopausal Sexually Transmitted Disease: No HIV/AIDS: No Genitourinary: No Gastrointestinal: Yes Gastroesophageal Reflux, Chronic Constipation, Chronic Diarrhea, Hiatal Hernia Musculoskeletal: Yes (CHRONIC NECK PAIN--S/P CERVICAL FUSION) Degenerate Disk Disease, Chronic Back Pain Endocrine: Yes Diabetes, Insulin dep, Hypothyroidsim HEENT: No Loss of Vision: Denies Hearing Impairment: Denies Cancer: No Psychosocial: Yes Anxiety, Depression Integumentary: Yes (PREVIOUS ABCESSES) Blood Disorders: No Adverse Reaction/Blood Tranf: No Family Medical History Reviewed Nursing Family Hx Cancer G8 BROTHER, Onset:Unknown G8 BROTHER, Onset:Unknown Cancer of colon G8 BROTHER, Onset:Unknown Chest pain 19 MOTHER, Onset:Unknown Colon cancer Congestive heart failure 19 FATHER, Onset:60 years & older Family history: Alzheimer's disease 19 MOTHER, Onset:50's - 60 Family history: Arthritis 19 MOTHER, Onset:Unknown Family history: Asthma 19 FATHER, Onset:Unknown Family history: Cardiovascular disease 19 MOTHER, Onset:50's - 60 Family history: Coronary thrombosis 19 MOTHER, Onset:Unknown Family history: Diabetes mellitus 19 MOTHER, Onset:Unknown Family history: Hypertension 19 MOTHER, Onset:50's - 60 Family history: Thyroid disorder 19 MOTHER, Onset:50's - 60 Heart disease 19 MOTHER, Onset:50's - 60 Human immunodeficiency virus (HIV) seropositivity G8 BROTHER, Onset:40's - 50 Myocardial infarction 19 MOTHER, Onset:50's - 60 PSH: -RIGHT ILIAC ARTERY STENT -4 VESSEL CABG 12/2015 -RIGHT CAROTID ENDARTERECTOMY 12/2015 -TONSILLECTOMY -HYSTERECTOMY/BSO -LAPAROSCOPIC RENETTA FUNDOPLICATION -CERVICAL SPINE FUSION Physical Exam Vital Signs Vital Signs - First Documented 01/24/22 14:34 Temp 37.0 Pulse 81 Resp 22 B/P (MAP) 124/66 (85) Pulse Ox 95 Capillary Refill : Height, Weight, BMI Height: 5'5.00" Weight: 125lbs. 0.0oz. 56.536586pj; 19.72 BMI Method:Stated General Appearance: WD/WN, no apparent distress, cachetic, thin HEENT: PERRL/EOMI, other (Mucous membranes dry) Neck: full range of motion, supple Respiratory: lungs clear, normal breath sounds Cardiovascular: regular rate, rhythm, no murmur Peripheral Pulses: 2+ Dorsalis Pedis (R), 2+ Left Dors-Pedis (L), 2+ Radial Pulses (R), 2+ Radial Pulses (L) Gastrointestinal: non tender, soft Back: normal inspection, no CVA tenderness, no vertebral tenderness Extremities: non-tender, normal inspection, no pedal edema, no calf tenderness Neurologic/Psychiatric: alert, normal mood/affect Crainal Nerves: No abnormal speech, No facial droop, No tongue deviation to R, No tongue deviation to L Coordination/Gait: abnormal gait Motor/Sensory: No no sensory deficit; weak motor strength RUE, weak motor strength LUE, weak motor strength RLE, weak motor strength LLE Skin: normal color, warm/dry Focused Exam Lactate Level 01/24/22 16:08: Lactic Acid Level 1.67 Lactic Acid Level Laboratory Tests Test 01/24/22 16:08 Lactic Acid Level 1.67 MMOL/L (0.50-2.00) Procedures/Interventions Patient Education: Explained Benefits, Explained Risks, Pt. Ack. Understanding Breath Sounds per Auscultation: Clear Heart Sounds per Auscultation: Irregular Airway Exam: Mouth opens >2 fingers, Neck Full Range of Motion, Visulation of Uvula Sedation Adminstration Time: 0955 Re-examination Time: 1015 Progress/Results/Core Measures Results/Orders Lab Results Laboratory Tests Test 01/24/22 14:53 01/24/22 14:54 01/24/22 15:10 01/24/22 15:11 Range/Units White Blood Count 14.1 H 4.3-11.0 10^3/uL Red Blood Count 4.04 3.80-5.11 10^6/uL Hemoglobin 11.3 L 11.5-16.0 g/dL Hematocrit 36 35-52 % Mean Corpuscular Volume 88 80-99 fL Mean Corpuscular Hemoglobin 28 25-34 pg Mean Corpuscular Hemoglobin Concent 32 32-36 g/dL Red Cell Distribution Width 15.3 H 10.0-14.5 % Platelet Count 425 H 130-400 10^3/uL Mean Platelet Volume 9.0 9.0-12.2 fL Immature Granulocyte % (Auto) 1 % Neutrophils (%) (Auto) 75 42-75 % Lymphocytes (%) (Auto) 14 12-44 % Monocytes (%) (Auto) 6 0-12 % Eosinophils (%) (Auto) 3 0-10 % Basophils (%) (Auto) 1 0-10 % Neutrophils # (Auto) 10.6 H 1.8-7.8 10^3/uL Lymphocytes # (Auto) 2.0 1.0-4.0 10^3/uL Monocytes # (Auto) 0.9 0.0-1.0 10^3/uL Eosinophils # (Auto) 0.4 H 0.0-0.3 10^3/uL Basophils # (Auto) 0.2 H 0.0-0.1 10^3/uL Immature Granulocyte # (Auto) 0.1 0.0-0.1 10^3/uL Neutrophils % (Manual) 82 % Lymphocytes % (Manual) 7 % Monocytes % (Manual) 7 % Eosinophils % (Manual) 4 % Blood Morphology Comment NORMAL Prothrombin Time 14.1 12.2-14.7 SEC INR Comment 1.0 0.8-1.4 Activated Partial Thromboplast Time 30 24-35 SEC D-Dimer 0.31 0.00-0.49 UG/ML Sodium Level 138 135-145 MMOL/L Potassium Level 4.9 3.6-5.0 MMOL/L Chloride Level 101 98-107 MMOL/L Carbon Dioxide Level 24 21-32 MMOL/L Anion Gap 13 5-14 MMOL/L Blood Urea Nitrogen 38 H 7-18 MG/DL Creatinine 2.37 H 0.60-1.30 MG/DL Estimat Glomerular Filtration Rate 23 BUN/Creatinine Ratio 16 Glucose Level 143 H 70-105 MG/DL Calcium Level 10.1 8.5-10.1 MG/DL Corrected Calcium 10.8 H 8.5-10.1 MG/DL Total Bilirubin 0.2 0.1-1.0 MG/DL Aspartate Amino Transf (AST/SGOT) 11 5-34 U/L Alanine Aminotransferase (ALT/SGPT) 12 0-55 U/L Alkaline Phosphatase 104 40-136 U/L Troponin I 0.055 H <0.028 NG/ML Total Protein 6.1 L 6.4-8.2 GM/DL Albumin 3.1 L 3.2-4.5 GM/DL Glucometer 142 H 70-110 MG/DL Urine Color YELLOW Urine Clarity SL CLOUDY Urine pH 6.0 5-9 Urine Specific [place] >=1.030 1.016-1.022 Urine Protein 3+ H NEGATIVE Urine Glucose (UA) 1+ H NEGATIVE Urine Ketones NEGATIVE NEGATIVE Urine Nitrite NEGATIVE NEGATIVE Urine Bilirubin NEGATIVE NEGATIVE Urine Urobilinogen 0.2 < = 1.0 MG/DL Urine Leukocyte Esterase NEGATIVE NEGATIVE Urine RBC (Auto) TRACE-I H NEGATIVE Urine RBC 0-2 /HPF Urine WBC 5-10 H /HPF Urine Squamous Epithelial Cells 5-10 /HPF Urine Renal Epithelial Cells NONE /HPF Urine Crystals NONE /LPF Urine Bacteria LARGE H /HPF Urine Casts PRESENT /LPF Urine Hyaline Casts 10-25 H /LPF Urine Mucus NEGATIVE /LPF Urine Yeast FEW H /HPF Urine Culture Indicated YES SARS-CoV-2 RNA (RT-PCR) Not Detected Not Detecte Test 01/24/22 16:08 01/24/22 16:40 Range/Units Lactic Acid Level 1.67 0.50-2.00 MMOL/L Troponin I 0.049 H <0.028 NG/ML My Orders Orders - SAKINA DUARTE MD Cbc With Automated Diff (01/24/22 14:47) Protime With Inr (01/24/22 14:47) Partial Thromboplastin Time (01/24/22 14:47) Comprehensive Metabolic Panel (01/24/22 14:47) Fibrin Degradation Products (01/24/22 14:47) Troponin I Bon[place] (01/24/22 14:47) Ua Culture If Indicated (01/24/22 14:47) Chest 1 View, Ap/Pa Only (01/24/22 14:47) Ekg Tracing (01/24/22 14:47) Nothing By Mouth (01/24/22 Lunch) Accucheck Stat ONCE (01/24/22 14:47) Ed Iv/Invasive Line Start (01/24/22 14:47) Vital Signs Stroke Patient Q15M (01/24/22 14:47) Ct Head Wo-R/O Stroke (01/24/22 14:47) O2 (01/24/22 14:47) Intake & Output (01/24/22 14:47) Monitor-Rhythm Ecg Trace Only (01/24/22 14:47) Dysphagia Screening Tool Q10MX1 (01/24/22 14:47) Lipid Panel (01/25/22 06:00) Ns Iv 500 Ml (Sodium Chloride 0.9%) (01/24/22 15:00) Covid 19 Inhouse Test (01/24/22 14:50) Manual Differential (01/24/22 14:53) Urine Culture (01/24/22 15:10) Lactic Acid Analyzer (01/24/22 15:51) Blood Culture (01/24/22 15:51) Troponin I [place] (01/24/22 16:34) Ceftriaxone 1 Gm Pre-Mix (Rocephin 1 Gm (01/24/22 16:39) Medications Given in ED Current Medications Medications Dose Ordered Sig/Janet Route Start Time Stop Time Status Last Admin Dose Admin Sodium Chloride 500 ml @ 0 mls/hr Q0M ONCE IV 01/24/22 15:00 01/24/22 15:01 DC 01/24/22 15:11 500 MLS/HR Vital Signs/I&O 01/24/22 14:34 Temp 37.0 Pulse 81 Resp 22 B/P (MAP) 124/66 (85) Pulse Ox 95 Progress Progress Note : Progress Note Seen and evaluated. IV, labs, EKG, chest x-ray and CT head ordered. Normal saline 500 mL bolus. Due to headache and fatigue symptoms, we will go ahead and check COVID. UA ordered. Monitor patient. 1637: Patient is overall doing better. UTI noted. We have added blood cultures and lactic acid. Patient would like to go home. We will see what the lactic acid shows and let that help determine direction. She also had very slight elevation of her troponin. We will repeat that and make sure that that is stable. She does have chronic kidney disease and has had elevated troponins in the past as well. All of this was discussed with patient and family who agree. Monitor patient. 1715 troponin is negative. Lactic acid is negative. She would like to do outpatient therapy. She did get 1 dose of Rocephin IV here and we will continue cefdinir outpatient. Discharged home with return precautions. Patient and family verbalized understanding of instructions and agreement with plan. Initial ECG Impression Date: Jan 24, 2022 Initial ECG Impression Time: 15:00 Initial ECG Rate: 71 Initial ECG Rhythm: Normal Sinus Comment Sinus rhythm with normal axis. No evidence of ST elevation MS. Change from previous of 11/16/2021 which was atrial fibrillation with rapid ventricular rate. Interpreted by me. Diagnostic Imaging Diagonstic Imaging: CT Plain Films/CT/US/NM/MRI: head Comments [facility]. [place], [place] NAME: TIFFANY GRAMAJO [facility] REC#: [id number] PT STATUS: REG ER : 1960 PHYSICIAN: SAKINA DUARTE MD ADMIT DATE: 01/24/22/ER Signed Date of Exam:01/24/22 CT HEAD WO-R/O STROKE INDICATION: Altered mental status, ataxia, history of stroke. TECHNIQUE: Multiple contiguous axial images were obtained through the brain without the use of intravenous contrast. Auto Exposure Controls were utilized during the CT exam to meet ALARA standards for radiation dose reduction. Noncontrast head CT performed and compared with 10/25/2021. There are diffuse atrophic changes. There are mild chronic changes in deep white matter. There is no acute hemorrhage or mass effect or acute territorial ischemia. Calvarial windows are unremarkable. There is some mucosal thickening and fluid in the left maxillary sinus IMPRESSION: Atrophic changes with no acute hemorrhage or acute intracranial finding. Dictated by: Dictated on workstation # [id number] Dict: 01/24/22 1527 Trans: 01/24/22 1534 CV [id number] Interpreted by: ZARA ABRAHAM MD Electronically signed by: ZARA ABRAHAM MD 01/24/22 1534 Diagonstic Imaging: Xray Plain Films/CT/US/NM/MRI: chest Comments [facility] [place], [place] NAME: TIFFANY GRAMAJO [facility] REC#: [id number] PT STATUS: REG ER : 1960 PHYSICIAN: SAKINA DUARTE MD ADMIT DATE: 01/24/22/ER Draft Date of Exam:01/24/22 CHEST 1 VIEW, AP/PA ONLY INDICATION: AMS COMPARISON: 11/16/2021 FINDINGS: Single frontal view of the chest demonstrates persistent cardiomegaly. Pulmonary vasculature however is within normal limits. The lungs are well aerated and clear. No large pleural effusion or pneumothorax is seen. The visualized osseous structures show no acute abnormalities. Left-sided subclavian Port-A-Cath and sternotomy wires are noted. IMPRESSION: 1. No acute cardiopulmonary process. Dictated on workstation # [id number] Dict: 01/24/22 1530 Trans: 01/24/22 1533 CV [id number] Interpreted by: SUZETTE LEON MD Electronically signed by: Departure Impression Primary Impression: Urinary tract infection Qualified Codes: N30.00 - Acute cystitis without hematuria Additional Impression: Altered mental state Qualified Codes: R41.82 - Altered mental status, unspecified Disposition: 01 HOME, SELF-CARE Condition: Stable Departure-Patient Inst. Decision time for Depature: 17:15 Referrals: JUAN R MAHMOOD DO (PCP) Primary Care Physician [facility]/JUMA (Family) Primary Care Physician Patient Instructions: Urinary Tract Infection, Adult ED, Altered Mental Status (DC) Add. Discharge Instructions: Continue home medications as previously prescribed. Take other medications as directed. You will follow-up for outpatient surgery as discussed with Dr. Amado. Return for worse pain, fever, vomiting, weakness, breathing problems or other concerns as needed. Scripts Cefdinir (Cefdinir) 300 Mg Capsule 300 MG PO BID, #14 CAP 0 Refills Prov: SAKINA DUARTE MD 01/24/22 SAKINA DUARTE MD Jan 24, 2022 14:47
[2022-01-24] MEDS ORDERED: NS IV 500 ML 500 ML IV ONE (15:00)
[2022-01-24 15:01] LABS: BASOPHILS # (AUTO) 0.2 10^3/uL (0.0-0.1); BASOPHILS % (AUTO) 1 % (0-10); EOSINOPHILS # (AUTO) 0.4 10^3/uL (0.0-0.3); EOSINOPHILS % (AUTO) 3 % (0-10); HEMATOCRIT 36 % (35-52); HEMOGLOBIN 11.3 g/dL (11.5-16.0); LYMPHOCYTES % (AUTO) 14 % (12-44); MEAN CORPUSCULAR HEMOGLOBIN 28 pg (25-34); MEAN CORPUSCULAR HGB CONC 32 g/dL (32-36); MEAN CORPUSCULAR VOLUME 88 fL (80-99); MONOCYTES # (AUTO) 0.9 10^3/uL (0.0-1.0); MONOCYTES % (AUTO) 6 % (0-12); NEUTROPHILS # (AUTO) 10.6 10^3/uL (1.8-7.8); NEUTROPHILS % (AUTO) 75 % (42-75); PLATELET COUNT 425 10^3/uL (130-400); WHITE BLOOD COUNT 14.1 10^3/uL (4.3-11.0)
[2022-01-24 15:11] LABS: EOSINOPHILS % (MANUAL) 4 %; LYMPHOCYTES % (MANUAL) 7 %; MONOCYTES % (MANUAL) 7 %; NEUTROPHILS % (MANUAL) 82 %; RBC MORPH NORMAL
[2022-01-24 15:17] LABS: BILIRUBIN,URINE NEGATIVE (NEGATIVE); CLARITY,URINE SL CLOUDY; COLOR,URINE YELLOW; GLUCOSE, URINE (UA) 1+ (NEGATIVE); KETONES,URINE NEGATIVE (NEGATIVE); LEUKOCYTE ESTERASE ,URINE NEGATIVE (NEGATIVE); NITRITE,URINE NEGATIVE (NEGATIVE); PROTEIN,URINE 3+ (NEGATIVE)
[2022-01-24 15:23] LABS: FIBRIN DEGRADATION PRODUCTS 0.31 UG/ML (0.00-0.49); PROTHROMBIN TIME PATIENT 14.1 SEC (12.2-14.7)
[2022-01-24 15:25] LABS: BACTERIA,URINE LARGE /HPF; RBC,URINE 0-2 /HPF; YEAST,URINE FEW /HPF
[2022-01-24 15:26] LABS: ALBUMIN 3.1 GM/DL (3.2-4.5); POTASSIUM 4.9 MMOL/L (3.6-5.0)
[2022-01-24 15:27] LABS: CALCIUM 10.1 MG/DL (8.5-10.1)
[2022-01-24 15:28] LABS: TOTAL PROTEIN 6.1 GM/DL (6.4-8.2)
[2022-01-24 15:30] LABS: BILIRUBIN,TOTAL 0.2 MG/DL (0.1-1.0)
[2022-01-24 15:32] LABS: CREATININE SERUM 2.37 MG/DL (0.60-1.30)
--- NOTE | 2022-01-24 15:34 | Diagnostic Imaging Report ---
INDICATION: Altered mental status, ataxia, history of stroke. TECHNIQUE: Multiple contiguous axial images were obtained through the brain without the use of intravenous contrast. Auto Exposure Controls were utilized during the CT exam to meet ALARA standards for radiation dose reduction. Noncontrast head CT performed and compared with 10/25/2021. There are diffuse atrophic changes. There are mild chronic changes in deep white matter. There is no acute hemorrhage or mass effect or acute territorial ischemia. Calvarial windows are unremarkable. There is some mucosal thickening and fluid in the left maxillary sinus IMPRESSION: Atrophic changes with no acute hemorrhage or acute intracranial finding. Dictated by: Dictated on workstation # [id number]
--- NOTE | 2022-01-24 15:34 | Diagnostic Imaging Report ---
INDICATION: AMS COMPARISON: 11/16/2021 FINDINGS: Single frontal view of the chest demonstrates persistent cardiomegaly. Pulmonary vasculature however is within normal limits. The lungs are well aerated and clear. No large pleural effusion or pneumothorax is seen. The visualized osseous structures show no acute abnormalities. Left-sided subclavian Port-A-Cath and sternotomy wires are noted. IMPRESSION: 1. No acute cardiopulmonary process. Dictated by: Dictated on workstation # [id number]
[2022-01-24] MEDS ORDERED: cefTRIAXone 1 GM PRE-MIX 50 ML IV STA (16:39)
[2022-01-24] MEDS ORDERED: CEFD300C3 PO (16:55)
[2022-01-24] MEDS ORDERED: METR-145 PO (16:55)
[2022-01-24 17:35] VITALS: BP 137/79
== END 2022-01-24 17:38 | disposition home or self-care (01) ==
LOC: EDUNIT# 14:32 → ER 14:34
DX: I12.9 Hypertensive chronic kidney disease with stage 1 through stage 4 chronic kidney disease, or unspecified chronic kidney disease (principal); N18.9 Chronic kidney disease, unspecified; E11.22 Type 2 diabetes mellitus with diabetic chronic kidney disease; R41.82 Altered mental status, unspecified; N39.0 Urinary tract infection, site not specified; R77.8 Other specified abnormalities of plasma proteins; E11.40 Type 2 diabetes mellitus with diabetic neuropathy, unspecified; F17.210 Nicotine dependence, cigarettes, uncomplicated; Z86.73 Personal history of transient ischemic attack (TIA), and cerebral infarction without residual deficits; Z90.710 Acquired absence of both cervix and uterus; Z90.722 Acquired absence of ovaries, bilateral; Z79.4 Long term (current) use of insulin; Z20.822 Contact with and (suspected) exposure to COVID-19
CPT/HCPCS: 36415; 70450; 71045; 80053; 81000; 82947; 83605; 84484; 85007; 85027; 85379; 85610; 85730; 87040; 87088; 87636; 93005; 93041

== ENCOUNTER → 2022-03-02 | Day surgery (SDC) | payer OTHER ==
[~2022-03-02] VITALS: Ht 165.1 cm; Wt 51.2 kg
[~2022-03-02] MED LIST changes: +METR-145 PO
[2022-03-02 14:58] LABS: HEMATOCRIT 37 % (35-52); HEMOGLOBIN 12.2 g/dL (11.5-16.0); MEAN CORPUSCULAR HEMOGLOBIN 28 pg (25-34); MEAN CORPUSCULAR HGB CONC 33 g/dL (32-36); MEAN CORPUSCULAR VOLUME 87 fL (80-99); MEAN PLATELET VOLUME 9.4 fL (9.0-12.2); PLATELET COUNT 388 10^3/uL (130-400); WHITE BLOOD COUNT 12.5 10^3/uL (4.3-11.0)
[2022-03-02 15:00] VITALS: BP 142/74
[2022-03-02 15:16] LABS: BILIRUBIN,URINE NEGATIVE (NEGATIVE); CLARITY,URINE CLEAR; COLOR,URINE YELLOW; GLUCOSE, URINE (UA) 3+ (NEGATIVE); KETONES,URINE NEGATIVE (NEGATIVE); LEUKOCYTE ESTERASE ,URINE NEGATIVE (NEGATIVE); NITRITE,URINE NEGATIVE (NEGATIVE); PROTEIN,URINE 3+ (NEGATIVE)
[2022-03-02 15:27] LABS: ALBUMIN 3.2 GM/DL (3.2-4.5)
[2022-03-02 15:28] LABS: POTASSIUM 5.3 MMOL/L (3.6-5.0)
[2022-03-02 15:29] LABS: CALCIUM 8.9 MG/DL (8.5-10.1)
[2022-03-02 15:33] LABS: CREATININE SERUM 2.38 MG/DL (0.60-1.30); PHOSPHORUS 5.8 MG/DL (2.3-4.7)
[2022-03-02 15:36] LABS: URIC ACID 6.4 MG/DL (2.6-7.2)
[2022-03-02 15:54] LABS: BACTERIA,URINE FEW /HPF; GRANULAR CASTS,URINE 0-2 /LPF
[2022-03-02 16:02] LABS: RBC,URINE 0-2 /HPF; RED BLOOD CELL CASTS,URINE RARE /LPF
== END | disposition home or self-care (01) ==
LOC: SDC 12:26
PROVIDERS: ATTEND Nurse Practitioner
DX: N18.32 Chronic kidney disease, stage 3b (principal)
CPT/HCPCS: 36415; 36591; 80069; 81000; 82306; 82570; 83970; 84156; 84550; 85027; 87088

== ENCOUNTER → 2022-03-22 | Outpatient (CLI) | payer OTHER | LOC: CARD 11:59 | PROVIDERS: ATTEND Nurse Practitioner Family | DX: I51.7 Cardiomegaly (principal); I48.91 Unspecified atrial fibrillation | CPT/HCPCS: 93306 ==

== ENCOUNTER → 2022-03-28 | Outpatient (CLI) | payer OTHER ==
[~2022-03-28] MED LIST changes: +REGADENOSON 0.4 MG/5 ML SYR (LEXISCAN) IV ONE
[2022-03-28] MEDS: CATHETER FLUSH 10 ML SYR IVP PRN ×2 (08:22→09:28)
[2022-03-28 09:26] VITALS: BP 201/97
--- NOTE | 2022-03-29 15:09 | STRESS TEST ---
DATE OF SERVICE: 03/28/2022 RESTING AND POST REGADENOSON TECHNETIUM-99M TETROFOSMIN SPECT CT IMAGING ORDERING PHYSICIAN: Dr. Jeffries. PRIMARY PHYSICIAN: Dr. José Manuel Dodge. CLINICAL DIAGNOSIS: Coronary artery disease. Baseline images were carried out after injection of 10.51 mCi of technetium-99m Tetrofosmin. This was followed by 0.4 mg regadenoson and 32.6 mCi of technetium-99m Tetrofosmin for stress imaging. The electrocardiogram showed sinus rhythm at baseline. There was subtle, nonspecific ST abnormality. The electrocardiogram did not change significantly with the regadenoson infusion. Review of images at rest and following stress does not indicate any significant perfusion defects consistent with myocardial ischemia or infarction. Gated images show normal global left ventricular systolic function with normal regional wall motion. Left ventricular ejection fraction is calculated to be 62%. CONCLUSIONS: 1. No evidence of any significant myocardial ischemia or infarction on this study. 2. Normal regional wall motion. 3. Normal global left ventricular systolic function with a calculated ejection fraction of 62%. Job ID: [id number] DocumentID: [id number] Dictated Date: 03/29/2022 12:43:36 Professional Advisor Date: 03/29/2022 15:07:55 Dictated By: THOMAS JEFFRIES MD, MA, FACP, FACC,
== END ==
LOC: CARD 07:56
PROVIDERS: ATTEND Internal Medicine Cardiovascular Disease
DX: I25.10 Atherosclerotic heart disease of native coronary artery without angina pectoris (principal)
CPT/HCPCS: 78452; 93017

== ENCOUNTER → 2022-04-05 | Outpatient (CLI) | payer OTHER ==
[~2022-04-05] MED LIST changes: -REGADENOSON 0.4 MG/5 ML SYR (LEXISCAN) IV ONE
[2022-04-05 12:08] LABS: BASOPHILS # (AUTO) 0.1 10^3/uL (0.0-0.1); BASOPHILS % (AUTO) 1 % (0-10); EOSINOPHILS # (AUTO) 0.3 10^3/uL (0.0-0.3); EOSINOPHILS % (AUTO) 2 % (0-10); HEMATOCRIT 35 % (35-52); HEMOGLOBIN 11.3 g/dL (11.5-16.0); LYMPHOCYTES % (AUTO) 16 % (12-44); MEAN CORPUSCULAR HEMOGLOBIN 29 pg (25-34); MEAN CORPUSCULAR HGB CONC 33 g/dL (32-36); MEAN CORPUSCULAR VOLUME 90 fL (80-99); MEAN PLATELET VOLUME 9.4 fL (9.0-12.2); MONOCYTES % (AUTO) 8 % (0-12); NEUTROPHILS # (AUTO) 9.2 10^3/uL (1.8-7.8); NEUTROPHILS % (AUTO) 72 % (42-75); PLATELET COUNT 359 10^3/uL (130-400); WHITE BLOOD COUNT 12.7 10^3/uL (4.3-11.0)
[2022-04-05 12:24] LABS: POTASSIUM 4.8 MMOL/L (3.6-5.0)
[2022-04-05 12:29] LABS: PHOSPHORUS 4.6 MG/DL (2.3-4.7)
[2022-04-05 12:30] LABS: CREATININE SERUM 1.92 MG/DL (0.60-1.30)
[2022-04-05 12:32] LABS: URIC ACID 6.6 MG/DL (2.6-7.2)
== END ==
LOC: SDC 11:05
PROVIDERS: ATTEND Internal Medicine Nephrology
DX: I12.9 Hypertensive chronic kidney disease with stage 1 through stage 4 chronic kidney disease, or unspecified chronic kidney disease (principal); N18.4 Chronic kidney disease, stage 4 (severe); E10.21 Type 1 diabetes mellitus with diabetic nephropathy; N83.9 Noninflammatory disorder of ovary, fallopian tube and broad ligament, unspecified; E83.39 Other disorders of phosphorus metabolism; E78.5 Hyperlipidemia, unspecified; R60.0 Localized edema; Z72.0 Tobacco use
CPT/HCPCS: 36415; 80069; 82570; 82652; 83970; 84156; 84550; 85025

== ENCOUNTER → 2022-04-05 | Outpatient (CLI) | payer OTHER ==
[2022-04-05 12:00] VITALS: BP 191/101
== END ==
LOC: SDC 11:00
PROVIDERS: ATTEND Pediatrics
DX: R41.3 Other amnesia (principal)
CPT/HCPCS: 36415; 36591; 82607; 82746

== ENCOUNTER → 2022-04-15 | Outpatient (CLI) | payer OTHER ==
[2022-04-15 14:44] LABS: BASOPHILS # (AUTO) 0.2 10^3/uL (0.0-0.1); BASOPHILS % (AUTO) 1 % (0-10); EOSINOPHILS # (AUTO) 0.3 10^3/uL (0.0-0.3); EOSINOPHILS % (AUTO) 2 % (0-10); HEMATOCRIT 32 % (35-52); HEMOGLOBIN 10.2 g/dL (11.5-16.0); LYMPHOCYTES # (AUTO) 1.5 10^3/uL (1.0-4.0); LYMPHOCYTES % (AUTO) 9 % (12-44); MEAN CORPUSCULAR HEMOGLOBIN 29 pg (25-34); MEAN CORPUSCULAR HGB CONC 32 g/dL (32-36); MEAN CORPUSCULAR VOLUME 93 fL (80-99); MEAN PLATELET VOLUME 10.2 fL (9.0-12.2); MONOCYTES # (AUTO) 1.2 10^3/uL (0.0-1.0); MONOCYTES % (AUTO) 7 % (0-12); NEUTROPHILS # (AUTO) 13.3 10^3/uL (1.8-7.8); NEUTROPHILS % (AUTO) 80 % (42-75); PLATELET COUNT 359 10^3/uL (130-400); WHITE BLOOD COUNT 16.5 10^3/uL (4.3-11.0)
[2022-04-15 14:49] LABS: ALBUMIN 2.9 GM/DL (3.2-4.5); POTASSIUM 4.7 MMOL/L (3.6-5.0)
[2022-04-15 14:50] LABS: CALCIUM 8.4 MG/DL (8.5-10.1)
[2022-04-15 14:52] LABS: TOTAL PROTEIN 6.3 GM/DL (6.4-8.2)
[2022-04-15 14:53] LABS: BILIRUBIN,TOTAL 0.6 MG/DL (0.1-1.0)
[2022-04-15 14:55] LABS: CREATININE SERUM 2.33 MG/DL (0.60-1.30)
[2022-04-15 15:27] LABS: BAND NEUTROPHILS 0 %; BASOPHILS % (MANUAL) 0 %; EOSINOPHILS % (MANUAL) 0 %; LYMPHOCYTES % (MANUAL) 11 %; MONOCYTES % (MANUAL) 10 %; NEUTROPHILS % (MANUAL) 79 %; RBC MORPH NORMAL
--- NOTE | 2022-04-15 15:33 | Diagnostic Imaging Report ---
INDICATION: Edema and wheezing. EXAMINATION: Chest, 04/15/2022. COMPARISON: 01/24/2022. FINDINGS: There is cardiomegaly with pulmonary vascular congestion. Bibasilar infiltrates noted with linear atelectasis in the right midlung. There is a small right pleural effusion. No pneumothorax. Sternotomy wires and mediastinal clips noted. There is a left-sided chest port with the tip in the SVC. Multiple old rib fractures noted on the left. IMPRESSION: 1. Pulmonary edema. 2. Bibasilar atelectasis versus infiltrates. Dictated by: Dictated on workstation # [id number]
== END ==
LOC: RAD 14:00
PROVIDERS: ATTEND Nurse Practitioner Community Health
DX: R06.02 Shortness of breath (principal); R60.0 Localized edema; R06.2 Wheezing
CPT/HCPCS: 36415; 71046; 80053; 83880; 85007; 85027; 86141

== ENCOUNTER 2022-04-16 15:20 | Emergency (ER) | payer OTHER ==
[~2022-04-16] VITALS: Ht 165.1 cm; Wt 57.6 kg
--- NOTE | 2022-04-16 15:37 | ED Respiratory ---
General Chief Complaint: Respiratory Problems Stated Complaint: OXYGEN LEVELS HAVE DROPPED, CHF Nursing Triage Note: PT TO RM 6 BY WC WITH COMPLAINT OF INCREASING SOA. STATES SHE HAS GAINED ABOUT 17 LBS OF FLUID. STATES WAS CALLED BY THIS MORNING AND WAS TOLD SHE WAS IN HEART FAILURE. STATES OXYGEN AT HOME HAS BEEN IN THE 80s. History of Present Illness Date Seen by Provider: Apr 16, 2022 Time Seen by Provider: 15:33 Initial Comments Patient presents to the emergency department for increasing shortness of breath. States that she has gained about 17 pounds of fluid in the past week. Was called by [facility] this morning and told that she was in heart failure. Reports that she has been having lower oxygen saturations at home also. Was recently started on oxygen 2 liters at night. Denies chest pain. Does report that she is in stage 4 kidney failure. Is not currently on diuretics. Timing/Duration: getting worse Modifying Factors: Worse With Activity; Improves With Oxygen, Improves With Rest Associated Symptoms: No chest pain/soreness, No cough, No dizziness; shortness of breath Allergies and Home Medications Allergies Coded Allergies: ciprofloxacin (Verified Allergy, Mild, redness and itching , 12/04/18) redness and itching at iv site Patient Home Medication List Home Medication List Reviewed: Yes Albuterol Sulfate (Proair Hfa) 1 Puff Puff, 2 PUFF IH Q4H PRN for SHORTNESS OF BREATH, (Reported) Entered as Reported by: JUAN R PEDROZA on 11/02/21 1647 Apixaban (Eliquis) 5 Mg Tablet, 5 MG PO BID, (Reported) Entered as Reported by: JUAN R PEDROZA on 11/02/21 1647 Atorvastatin Calcium (Atorvastatin Calcium) 40 Mg Tablet, 40 MG PO HS, (Reported) Entered as Reported by: JUAN R PEDROZA on 11/09/20 1153 Buspirone HCl (Buspirone HCl) 5 Mg Tablet, 5 MG PO BID, (Reported) Entered as Reported by: JUAN R PEDROZA on 11/04/21 1148 Calcitriol (Calcitriol) 0.25 Mcg Capsule, 0.25 MCG PO HS, (Reported) Entered as Reported by: ERROL DAVIS on 07/30/21 0331 Cefdinir (Cefdinir) 300 Mg Capsule, 300 MG PO BID Prescribed by: SAKINA DUARTE on 01/24/22 1655 Diltiazem HCl (Diltiazem 24Hr ER) 300 Mg Cap.er.24h, 300 MG PO HS Prescribed by: WILMA REILLY on 11/16/21 1101 Fluticasone/Umeclidin/Vilanter (Trelegy Ellipta 100-62.5-25) 1 Each Blst.w.dev, 1 EACH IH DAILY, (Reported) Entered as Reported by: ERROL DAVIS on 07/30/21 0331 Folic Acid (Folic Acid) 1 Mg Tablet, 1 MG PO DAILY, (Reported) Entered as Reported by: JUAN R PEDROZA on 11/15/21 151 Gabapentin (Gabapentin) 100 Mg Capsule, 100 MG PO HS, (Reported) Entered as Reported by: EFE PATTERSON on 12/20/15 1348 Insulin Aspart (Insulin Aspart) 100 Unit/1 Ml Vial, UNITS SC AC, (Reported) Entered as Reported by: JUAN R PEDROZA on 11/09/20 1153 Insulin Determir (Levemir) 100 Unit/Ml Soln, 16 UNITS SQ DAILY, (Reported) Entered as Reported by: JUAN R PEDROZA on 11/02/21 164 Insulin Determir (Levemir) 1,000 Units/10 Ml Soln, 7 UNITS SQ HS Prescribed by: TONG MAGALLON on 11/10/21 0605 Levothyroxine Sodium (Levothyroxine Sodium) 25 Mcg Tablet, 25 MCG PO DAILY, (Reported) Entered as Reported by: JUAN R PEDROZA on 11/02/21 164 Levothyroxine Sodium (Levothyroxine Sodium) 200 Mcg Tablet, 200 MCG PO DAILY, (Reported) Entered as Reported by: JUAN R PEDROZA on 11/02/21 164 Lisinopril (Lisinopril) 10 Mg Tablet, 10 MG PO HS, (Reported) Entered as Reported by: JUAN R PEDROZA on 11/15/21 151 Meclizine HCl (Meclizine HCl) 12.5 Mg Tablet, 12.5 MG PO Q6H PRN for DIZZINESS, (Reported) Entered as Reported by: JUAN R PEDROZA on 11/02/21 164 Montelukast Sodium (Montelukast Sodium) 10 Mg Tablet, 10 MG PO HS, (Reported) Entered as Reported by: ERROL DAVIS on 07/30/21 0331 Pantoprazole Sodium (Pantoprazole Sodium) 40 Mg Tablet.dr, 40 MG PO BID, (Reported) Entered as Reported by: JUAN R PEDROZA on 11/09/20 1153 Paroxetine HCl (Paroxetine HCl) 40 Mg Tablet, 40 MG PO DAILY, (Reported) Entered as Reported by: LUIS TOWNSEND on 11/30/15 1408 Review of Systems Review of Systems Constitutional: No chills, No dizziness, No fever, No weakness EENTM: no symptoms reported Respiratory: cough, orthopnea, short of breath; No stridor; wheezing Cardiovascular: No chest pain; edema; No palpitations Gastrointestinal: No diarrhea, No nausea, No vomiting Musculoskeletal: no symptoms reported Skin: no symptoms reported All Other Systems Reviewed Negative Unless Noted: Yes Past Hdvmczm-Swokie-Esizdg Hx Patient Social History Tobacco Use?: Yes Tobacco type used: Cigarettes Smoking Status: Current Everyday Smoker Use of E-Cig and/or Vaping dev: No Substance use?: No Alcohol Use?: No Pt feels they are or have been: No Immunizations Up To Date Tetanus Booster (TDap): Unknown PED Vaccines UTD: No First/Initial COVID19 Vaccinat: jul 29 Second COVID19 Vaccination Rakesh: aug 29 Third COVID19 Vaccination Date: jul 29 Seasonal Allergies Seasonal Allergies: No Past Medical History Surgery/Hospitalization HX: GALL BLADDER, UTI Surgeries: Yes Abdominal, Cardiac, CABG, Gallbladder, 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, Oophorectomy, Orthopedic, Thyroidectomy, Vascular Surgery Respiratory: Yes COPD Currently Using CPAP: No Currently Using BIPAP: No Cardiac: Yes (RIGHT ILIAC STENT; 4 VESSEL CABG AND RIGHT CAROTID ENDARTERECTOMY 12/2015) Atrial Fibrillation, Coronary Artery Disease, High Cholesterol, Hypertension, Peripheral Vascular Neurological: Yes Headaches /Migraines, Neuropathy, Stroke Reproductive Disorders: No Female Reproductive Disorders: Denies 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, 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 Sexually Transmitted Disease: No HIV/AIDS: No Genitourinary: No Gastrointestinal: Yes Gastroesophageal Reflux, Chronic Constipation, Chronic Diarrhea, Hiatal Hernia Musculoskeletal: Yes (CHRONIC NECK PAIN--S/P CERVICAL FUSION) Degenerate Disk Disease, Chronic Back Pain Endocrine: Yes Diabetes, Insulin dep, Hypothyroidsim HEENT: No Loss of Vision: Denies Hearing Impairment: Denies Cancer: No Psychosocial: Yes Anxiety, Depression Integumentary: Yes (PREVIOUS ABCESSES) Blood Disorders: No Adverse Reaction/Blood Tranf: No Family Medical History Reviewed Nursing Family Hx Cancer G8 BROTHER, Onset:Unknown G8 BROTHER, Onset:Unknown Cancer of colon G8 BROTHER, Onset:Unknown Chest pain 19 MOTHER, Onset:Unknown Colon cancer Congestive heart failure 19 FATHER, Onset:60 years & older Family history: Alzheimer's disease 19 MOTHER, Onset:50's - 60 Family history: Arthritis 19 MOTHER, Onset:Unknown Family history: Asthma 19 FATHER, Onset:Unknown Family history: Cardiovascular disease 19 MOTHER, Onset:50's - 60 Family history: Coronary thrombosis 19 MOTHER, Onset:Unknown Family history: Diabetes mellitus 19 MOTHER, Onset:Unknown Family history: Hypertension 19 MOTHER, Onset:50's - 60 Family history: Thyroid disorder 19 MOTHER, Onset:50's - 60 Heart disease 19 MOTHER, Onset:50's - 60 Human immunodeficiency virus (HIV) seropositivity G8 BROTHER, Onset:40's - 50 Myocardial infarction 19 MOTHER, Onset:50's - 60 No Family History of: Abdominal aortic aneurysm [place]'s disease Alcoholism Aphasia Cataract Congenital heart disease Cystic fibrosis Dementia Dysphagia Family history: Allergy Family history: Breast disease Family history: Gastrointestinal disease Family history: Glaucoma Family history: Osteoporosis Headache Hearing loss Hereditary disease History of - anemia History of - disorder History of - respiratory disease History of drug abuse Hypercholesterolemia Infertile Kidney disease Malignant neoplasm of lung Parkinson's disease Prostate cancer Psychotic disorder Seizure disorder Stroke Tuberculosis Visual impairment PSH: -RIGHT ILIAC ARTERY STENT -4 VESSEL CABG 12/2015 -RIGHT CAROTID ENDARTERECTOMY 12/2015 -TONSILLECTOMY -HYSTERECTOMY/BSO -LAPAROSCOPIC RENETTA FUNDOPLICATION -CERVICAL SPINE FUSION Physical Exam Vital Signs - First Documented 04/16/22 15:28 Pulse 66 Resp 17 B/P (MAP) 172/76 (108) Pulse Ox 92 O2 Delivery Room Air Capillary Refill : Height: 5'5.00" Weight: 125lbs. 0.0oz. 56.136120wz; 21.00 BMI Method:Stated General Appearance: mild distress (respiratory) HEENT: normal ENT inspection, TMs normal, pharynx normal Neck: non-tender, full range of motion, supple, normal inspection Respiratory: chest non-tender, respiratory distress (mild, tachypnea), decreased breath sounds, accessory muscle use, wheezing (expiratory throughout), expiration Cardiovascular: regular rate, rhythm, other (mild bilateral lower extremity swelling) Gastrointestinal: normal bowel sounds, non tender, soft Extremities: normal range of motion, non-tender, pedal edema, swelling (mild bilateral lower extremity edema ) Neurologic/Psychiatric: alert, normal mood/affect, oriented x 3 Skin: normal color, warm/dry Procedures/Interventions Patient Education: Explained Benefits, Explained Risks, Pt. Ack. Understanding Breath Sounds per Auscultation: Clear Heart Sounds per Auscultation: Irregular Airway Exam: Mouth opens >2 fingers, Neck Full Range of Motion, Visulation of Uvula Sedation Adminstration Time: 0955 Re-examination Time: 1015 Progress/Results/Core Measures Suspected Sepsis SIRS Temperature: Pulse: 66 Respiratory Rate: 17 Laboratory Tests 04/16/22 15:53: White Blood Count 13.8H Blood Pressure 172 /76 Mean: 108 Laboratory Tests 04/16/22 15:53: Creatinine 2.65H, INR Comment 1.4, Platelet Count 323, Total Bilirubin 0.3 Results/Orders Lab Results Laboratory Tests Test 04/16/22 15:33 04/16/22 15:53 Range/Units Glucometer 198 H 70-110 MG/DL White Blood Count 13.8 H 4.3-11.0 10^3/uL Red Blood Count 3.33 L 3.80-5.11 10^6/uL Hemoglobin 9.7 L 11.5-16.0 g/dL Hematocrit 31 L 35-52 % Mean Corpuscular Volume 93 80-99 fL Mean Corpuscular Hemoglobin 29 25-34 pg Mean Corpuscular Hemoglobin Concent 32 32-36 g/dL Red Cell Distribution Width 14.7 H 10.0-14.5 % Platelet Count 323 130-400 10^3/uL Mean Platelet Volume 10.4 9.0-12.2 fL Immature Granulocyte % (Auto) 2 % Neutrophils (%) (Auto) 79 H 42-75 % Lymphocytes (%) (Auto) 9 L 12-44 % Monocytes (%) (Auto) 8 0-12 % Eosinophils (%) (Auto) 1 0-10 % Basophils (%) (Auto) 1 0-10 % Neutrophils # (Auto) 10.9 H 1.8-7.8 10^3/uL Lymphocytes # (Auto) 1.3 1.0-4.0 10^3/uL Monocytes # (Auto) 1.0 0.0-1.0 10^3/uL Eosinophils # (Auto) 0.2 0.0-0.3 10^3/uL Basophils # (Auto) 0.2 H 0.0-0.1 10^3/uL Immature Granulocyte # (Auto) 0.3 H 0.0-0.1 10^3/uL Prothrombin Time 17.3 H 12.2-14.7 SEC INR Comment 1.4 0.8-1.4 Activated Partial Thromboplast Time 45 H 24-35 SEC Sodium Level 138 135-145 MMOL/L Potassium Level 4.7 3.6-5.0 MMOL/L Chloride Level 108 H 98-107 MMOL/L Carbon Dioxide Level 19 L 21-32 MMOL/L Anion Gap 11 5-14 MMOL/L Blood Urea Nitrogen 49 H 7-18 MG/DL Creatinine 2.65 H 0.60-1.30 MG/DL Estimat Glomerular Filtration Rate 20 BUN/Creatinine Ratio 18 Glucose Level 186 H 70-105 MG/DL Calcium Level 8.3 L 8.5-10.1 MG/DL Corrected Calcium 9.4 8.5-10.1 MG/DL Magnesium Level 2.5 H 1.6-2.4 MG/DL Total Bilirubin 0.3 0.1-1.0 MG/DL Aspartate Amino Transf (AST/SGOT) 47 H 5-34 U/L Alanine Aminotransferase (ALT/SGPT) 59 H 0-55 U/L Alkaline Phosphatase 228 H 40-136 U/L Myoglobin 56.9 10.0-92.0 NG/ML Troponin I < 0.028 <0.028 NG/ML B-Type Natriuretic Peptide 2272.2 H <100.0 PG/ML Total Protein 6.1 L 6.4-8.2 GM/DL Albumin 2.6 L 3.2-4.5 GM/DL My Orders Orders - RASHAWN EDMONDS APRN Troponin I Bollinger (04/16/22 15:37) Chest 1 View, Ap/Pa Only (04/16/22 15:37) Ekg Tracing (04/16/22 15:37) Ed Iv/Invasive Line Start (04/16/22 15:37) Monitor-Rhythm Ecg Trace Only (04/16/22 15:37) Cbc With Automated Diff (04/16/22 15:37) Magnesium (04/16/22 15:37) Comprehensive Metabolic Panel (04/16/22 15:37) Myoglobin Serum (04/16/22 15:37) Protime With Inr (04/16/22 15:37) Partial Thromboplastin Time (04/16/22 15:37) O2 (04/16/22 15:37) Albuterol/Ipra Inhalation Soln (Duoneb I (04/16/22 15:45) Svn Small Volume Nebulizer (04/16/22 15:37) Bnp Bollinger (04/16/22 15:37) Medications Given in ED Current Medications Medications Dose Ordered Sig/Janet Route Start Time Stop Time Status Last Admin Dose Admin Albuterol/ Ipratropium 3 ml ONCE ONCE INH 04/16/22 15:45 04/16/22 15:46 DC 04/16/22 16:06 3 ML Vital Signs/I&O 04/16/22 04/16/22 15:28 15:28 Pulse 66 Resp 17 B/P (MAP) 172/76 (108) Pulse Ox 92 O2 Delivery Room Air Room Air Capillary Refill : Blood Pressure Mean: 108 Progress Note : Progress Note Patient presents to the emergency department for increased fluid on CXR and shortness of breath. States that she was seen by [facility] yesterday. Has recently been started on oxygen at bedtime. Denies chest pain. 0: Spoke to patient and family. Offered admission to patient. She states that she would rather go home. Does not want to stay in the hospital. BNP is slightly lower then yesterday. She does have some mild edema in bilateral lower extremities. CXR shows mild edema. Discussed diuretics with patient but due to kidney function likely need to be done with order processing manager and coil tier on board. Since her BNP improved some from yesterday, I will let her specialists figure that out tomorrow AM. I offered admission twice and discussed risks of going home. She still wanted to try and trial outpatient therapy versus being admitted to the hospital. Instructed that if symptoms worsen then she needs to return to the ER immediately. Daughter was at bedside and agreed. Has an appointment Sunday with her kidney doctor. Instructed that she still need to call tomorrow to see if they want to do anything prior to her appointment. Diagnostic Imaging Diagonstic Imaging: Xray Plain Films/CT/US/NM/MRI: chest Comments NAME: TIFFANY GRAMAJO [facility] REC#: [id number] PT STATUS: REG ER : 1960 PHYSICIAN: RASHAWN EDMONDS APRN ADMIT DATE: 04/16/22/ER Signed Date of Exam:04/16/22 CHEST 1 VIEW, AP/PA ONLY EXAMINATION: Chest 1 view. HISTORY: Chest pain. COMPARISON: 01/24/2022. FINDINGS: Heart is enlarged. There is mild edema. There is atelectasis in the right mid zone. Left port is present. Median sternotomy wires are aligned. There are old left-sided rib fractures. IMPRESSION: Enlarged heart and mild edema. Dictated by: Dictated on workstation # [id number] Dict: 04/16/22 1622 Trans: 04/16/22 1638 [facility] [id number] Interpreted by: PILLO FENG MD Electronically signed by: PILLO FENG MD 04/16/22 1638 Departure Impression Primary Impression: CHF (congestive heart failure) Qualified Codes: I50.9 - Heart failure, unspecified Additional Impression: CKD (chronic kidney disease) stage 4, GFR 15-29 ml/min Disposition: 01 HOME, SELF-CARE Condition: Stable Departure-Patient Inst. Decision time for Depature: 16:59 Referrals: JUAN R MAHMOOD DO (PCP/Family) Primary Care Physician Patient Instructions: Chronic Kidney Disease (DC), Heart Failure ED Add. Discharge Instructions: 1. Follow up with specialists tomorrow AM in regards to possible medication adjustments. 2. Return here immediately if worse or concerns. All discharge instructions reviewed with patient and/or family. Voiced understanding. RASHAWN EDMONDS APRN Apr 16, 2022 15:37
[2022-04-16] MEDS ORDERED: RT-ALBUTEROL/IPRATROPIUM 3 ML (DUONEB) VIAL INH ONE (15:45)
[2022-04-16 16:17] LABS: BASOPHILS # (AUTO) 0.2 10^3/uL (0.0-0.1); BASOPHILS % (AUTO) 1 % (0-10); EOSINOPHILS # (AUTO) 0.2 10^3/uL (0.0-0.3); EOSINOPHILS % (AUTO) 1 % (0-10); HEMATOCRIT 31 % (35-52); HEMOGLOBIN 9.7 g/dL (11.5-16.0); LYMPHOCYTES # (AUTO) 1.3 10^3/uL (1.0-4.0); LYMPHOCYTES % (AUTO) 9 % (12-44); MEAN CORPUSCULAR HEMOGLOBIN 29 pg (25-34); MEAN CORPUSCULAR HGB CONC 32 g/dL (32-36); MEAN CORPUSCULAR VOLUME 93 fL (80-99); MEAN PLATELET VOLUME 10.4 fL (9.0-12.2); MONOCYTES % (AUTO) 8 % (0-12); NEUTROPHILS # (AUTO) 10.9 10^3/uL (1.8-7.8); NEUTROPHILS % (AUTO) 79 % (42-75); PLATELET COUNT 323 10^3/uL (130-400); WHITE BLOOD COUNT 13.8 10^3/uL (4.3-11.0)
[2022-04-16 16:25] LABS: ALBUMIN 2.6 GM/DL (3.2-4.5)
[2022-04-16 16:26] LABS: CHLORIDE 108 MMOL/L (98-107); POTASSIUM 4.7 MMOL/L (3.6-5.0); SODIUM 138 MMOL/L (135-145)
[2022-04-16 16:27] LABS: CALCIUM 8.3 MG/DL (8.5-10.1)
[2022-04-16 16:28] LABS: GLUCOSE 186 MG/DL (70-105); INR 1.4 (0.8-1.4); PROTHROMBIN TIME PATIENT 17.3 SEC (12.2-14.7); TOTAL PROTEIN 6.1 GM/DL (6.4-8.2)
[2022-04-16 16:29] LABS: CARBON DIOXIDE 19 MMOL/L (21-32)
[2022-04-16 16:30] LABS: BILIRUBIN,TOTAL 0.3 MG/DL (0.1-1.0)
[2022-04-16 16:31] LABS: ALKALINE PHOSPHATASE 228 U/L (40-136)
[2022-04-16 16:32] LABS: CREATININE SERUM 2.65 MG/DL (0.60-1.30); GFR ESTIMATED 20
[2022-04-16 16:33] LABS: BUN/CREATININE RATIO 18
--- NOTE | 2022-04-16 16:33 | Diagnostic Imaging Report ---
EXAMINATION: Chest 1 view. HISTORY: Chest pain. COMPARISON: 01/24/2022. FINDINGS: Heart is enlarged. There is mild edema. There is atelectasis in the right mid zone. Left port is present. Median sternotomy wires are aligned. There are old left-sided rib fractures. IMPRESSION: Enlarged heart and mild edema. Dictated by: Dictated on workstation # [id number]
[2022-04-16 16:34] LABS: MAGNESIUM 2.5 MG/DL (1.6-2.4)
[2022-04-16 16:35] LABS: ALANINE AMINOTRANSFERASE 59 U/L (0-55)
[2022-04-16 17:10] VITALS: BP 166/87
== END 2022-04-16 17:10 | disposition home or self-care (01) ==
LOC: EDUNIT# 15:20 → ER 15:22
DX: E11.22 Type 2 diabetes mellitus with diabetic chronic kidney disease (principal); I13.0 Hypertensive heart and chronic kidney disease with heart failure and stage 1 through stage 4 chronic kidney disease, or unspecified chronic kidney disease; N18.9 Chronic kidney disease, unspecified; N18.4 Chronic kidney disease, stage 4 (severe); I50.9 Heart failure, unspecified; E11.40 Type 2 diabetes mellitus with diabetic neuropathy, unspecified; F17.210 Nicotine dependence, cigarettes, uncomplicated; Z95.1 Presence of aortocoronary bypass graft; Z99.2 Dependence on renal dialysis; Z79.4 Long term (current) use of insulin
CPT/HCPCS: 36415; 71045; 80053; 82947; 83735; 83874; 83880; 84484; 85025; 85610; 85730; 93005; 93041

== ENCOUNTER 2022-05-11 13:22 | Observation (INO) | payer OTHER ==
[~2022-05-11] VITALS: Ht 165.1 cm; Wt 58.1 kg
[~2022-05-11 13:22] MED LIST changes: +ALBU8.5H6 IH
[2022-05-11] MEDS ORDERED: DEXTROSE 50% 50 ML (IMS) SYR IV ONE ×3 (13:45→17:30)
[2022-05-11 13:51] LABS: ABG BASE EXCESS 2.6 MMOL/L (-2.5-2.5); ABG OXYGEN SATURATION 99 % (94-100); ABG PCO2 43 MMHG (35-45); ABG PH 7.41 (7.37-7.43); ABG PO2 76 MMHG (79-93); ABG TCO2 28.7 MMOL/L (21.0-31.0); ALLENS TEST POSITIVE; PATIENT TEMP 35.3; VENTILATOR NO
[2022-05-11 13:54] LABS: BASOPHILS # (AUTO) 0.1 10^3/uL (0.0-0.1); BASOPHILS % (AUTO) 1 % (0-10); EOSINOPHILS # (AUTO) 0.3 10^3/uL (0.0-0.3); EOSINOPHILS % (AUTO) 3 % (0-10); HEMATOCRIT 38 % (35-52); HEMOGLOBIN 12.3 g/dL (11.5-16.0); LYMPHOCYTES # (AUTO) 1.9 10^3/uL (1.0-4.0); LYMPHOCYTES % (AUTO) 16 % (12-44); MEAN CORPUSCULAR HEMOGLOBIN 29 pg (25-34); MEAN CORPUSCULAR HGB CONC 33 g/dL (32-36); MEAN CORPUSCULAR VOLUME 90 fL (80-99); MEAN PLATELET VOLUME 9.6 fL (9.0-12.2); MONOCYTES # (AUTO) 0.8 10^3/uL (0.0-1.0); MONOCYTES % (AUTO) 7 % (0-12); NEUTROPHILS # (AUTO) 8.8 10^3/uL (1.8-7.8); NEUTROPHILS % (AUTO) 73 % (42-75); PLATELET COUNT 451 10^3/uL (130-400)
[2022-05-11 14:00] LABS: ALBUMIN 3.3 GM/DL (3.2-4.5); POTASSIUM 3.4 MMOL/L (3.6-5.0); PROTHROMBIN TIME PATIENT 13.1 SEC (12.2-14.7)
[2022-05-11 14:01] LABS: CALCIUM 9.1 MG/DL (8.5-10.1)
[2022-05-11 14:04] LABS: BILIRUBIN,TOTAL 0.3 MG/DL (0.1-1.0)
[2022-05-11 14:06] LABS: CREATININE SERUM 2.24 MG/DL (0.60-1.30)
--- NOTE | 2022-05-11 14:17 | Diagnostic Imaging Report ---
CHEST 1 VIEW, AP/PA ONLY INDICATION: Altered mental status. COMPARISON: 04/16/2022. FINDINGS: Stable left subclavian Port-A-Cath. Improved but persistent bilateral perihilar mixed linear and ill-defined opacities. No pleural effusion or pneumothorax. Stable cardiomegaly. IMPRESSION: 1. Improved but persistent bilateral perihilar opacities which may be due to pulmonary scar. Recurrent/residual edema and/or infection could be present in the appropriate clinical setting. Dictated by: Dictated on workstation # [id number]
--- NOTE | 2022-05-11 14:47 | ED General ---
General Chief Complaint: Glucose Problems Stated Complaint: HYPOGLYCEMIA Nursing Triage Note: PT TO ED BY EMS WITH C/O HYPOGLYCEMIA. EMS REPORTS THEY WERE DISPATCHED TO PT HOME FOR DIFFICULTY BREATHING, PT WAS UNRESPONSIVE ON SCENE WITH DEEP SNORING RESPIRATIONS. INITIAL BLOOD SUGAR FOR EMS READ "LOW," THEY GAVE 250 ML D10 EN ROUTE AND BLOOD SUGAR WAS 265 AT 1310. UPON ARRIVAL, PT VERY LETHARGIC. DENIES ANY PAIN, N/V/D AT THIS TIME. Source of Information: EMS Exam Limitations: Physical Impairments History of Present Illness Date Seen by Provider: May 11, 2022 Time Seen by Provider: 13:30 Initial Comments Patient is a 61-year-old with a history of diabetes, prior stroke, severe COPD peripheral vascular disease and coronary artery disease, chronic kidney disease who presents by ambulance for hypoglycemia. Patient was found by her caregiver unresponsive, initial blood sugar reading "low". They gave her a 250 mill bolus of D10 in route to the hospital. Her blood sugar came up nicely to the 200s but rapidly declined back below 100 by the time she was settled in the room. On my arrival she is still quite somnolent but rousable to physical stimuli and loud voice. She is only briefly able to open her eyes and answer basically in one- word questions. She is able to follow commands, squeezes my hands symmetrically, good strength. States good sensation. No obvious facial droop. Moving all 4 extremities. No report of trauma. No other family members immediately available for further history. Timing/Duration: Other (unknown - found by caregiver) Allergies and Home Medications Allergies Coded Allergies: ciprofloxacin (Verified Allergy, Mild, redness and itching , 12/04/18) redness and itching at iv site Patient Home Medication List Home Medication List Reviewed: Yes Albuterol Sulfate (Ventolin Hfa) 1 Puff Puff, 2 PUFF IH Q4H PRN for SHORTNESS OF BREATH, (Reported) Entered as Reported by: JUAN R PEDROZA on 11/02/21 164 Apixaban (Eliquis) 5 Mg Tablet, 5 MG PO BID, (Reported) Entered as Reported by: JUAN R PEDROZA on 11/02/21 1647 Atorvastatin Calcium (Atorvastatin Calcium) 40 Mg Tablet, 40 MG PO HS, (Reported) Entered as Reported by: JUAN R PEDROZA on 11/09/20 1153 Buspirone HCl (Buspirone HCl) 5 Mg Tablet, 5 MG PO BID, (Reported) Entered as Reported by: JUAN R PEDROZA on 11/04/21 1148 Calcitriol (Calcitriol) 0.25 Mcg Capsule, 0.25 MCG PO HS, (Reported) Entered as Reported by: ERROL DAVIS on 07/30/21 0331 Cefdinir (Cefdinir) 300 Mg Capsule, 300 MG PO BID Prescribed by: SAKINA DUARTE on 01/24/22 1655 Diltiazem HCl (Diltiazem 24Hr ER) 300 Mg Cap.er.24h, 300 MG PO HS Prescribed by: WILMA REILLY on 11/16/21 1101 Fluticasone/Umeclidin/Vilanter (Trelegy Ellipta 100-62.5-25) 1 Each Blst.w.dev, 1 EACH IH DAILY, (Reported) Entered as Reported by: ERROL DAVIS on 07/30/21 033 Folic Acid (Folic Acid) 1 Mg Tablet, 1 MG PO DAILY, (Reported) Entered as Reported by: JUAN R PEDROZA on 11/15/21 1513 Gabapentin (Gabapentin) 100 Mg Capsule, 100 MG PO HS, (Reported) Entered as Reported by: EFE PATTERSON on 12/20/15 1348 Insulin Aspart (Insulin Aspart) 100 Unit/1 Ml Vial, UNITS SC AC, (Reported) Entered as Reported by: JUAN R PEDROZA on 11/09/20 1153 Insulin Determir (Levemir) 100 Unit/Ml Soln, 16 UNITS SQ DAILY, (Reported) Entered as Reported by: JUAN R PEDROZA on 11/02/21 1647 Insulin Determir (Levemir) 1,000 Units/10 Ml Soln, 7 UNITS SQ HS Prescribed by: TONG MAGALLON on 11/10/21 0605 Levothyroxine Sodium (Levothyroxine Sodium) 25 Mcg Tablet, 25 MCG PO DAILY, (Reported) Entered as Reported by: JUAN R PEDROZA on 11/02/21 164 Levothyroxine Sodium (Levothyroxine Sodium) 200 Mcg Tablet, 200 MCG PO DAILY, (Reported) Entered as Reported by: JUAN R PEDROZA on 11/02/21 164 Lisinopril (Lisinopril) 10 Mg Tablet, 10 MG PO HS, (Reported) Entered as Reported by: JUAN R PEDROZA on 11/15/21 1513 Meclizine HCl (Meclizine HCl) 12.5 Mg Tablet, 12.5 MG PO Q6H PRN for DIZZINESS, (Reported) Entered as Reported by: JUAN R PEDROZA on 11/02/21 1647 Montelukast Sodium (Montelukast Sodium) 10 Mg Tablet, 10 MG PO HS, (Reported) Entered as Reported by: ERROL DAVIS on 07/30/21 0331 Pantoprazole Sodium (Pantoprazole Sodium) 40 Mg Tablet.dr, 40 MG PO BID, (Reported) Entered as Reported by: JUAN R PEDROZA on 11/09/20 1153 Paroxetine HCl (Paroxetine HCl) 40 Mg Tablet, 40 MG PO DAILY, (Reported) Entered as Reported by: LUIS TOWNSEND on 11/30/15 1408 Review of Systems Review of Systems Constitutional: see HPI Difficult to obtain from patient due to somnolence associated with low blood sugar Past Bmysvxo-Qmxclo-Lpljgn Hx Patient Social History Tobacco Use?: Yes Tobacco type used: Cigarettes Smoking Status: Current Everyday Smoker Use of E-Cig and/or Vaping dev: No Substance use?: No Alcohol Use?: No Pt feels they are or have been: No Immunizations Up To Date Tetanus Booster (TDap): Unknown PED Vaccines UTD: No Influenza Vaccine Up-to-Date: No; Not Current First/Initial COVID19 Vaccinat: jul 29 Second COVID19 Vaccination Rakesh: aug 29 Third COVID19 Vaccination Date: jul 29 Seasonal Allergies Seasonal Allergies: No Past Medical History Surgery/Hospitalization HX: HTN, CKD, DM, TARIK Surgeries: Yes Abdominal, Cardiac, CABG, Gallbladder, 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, Oophorectomy, Orthopedic, Thyroidectomy, Vascular Surgery Respiratory: Yes COPD Currently Using CPAP: No Currently Using BIPAP: No Cardiac: Yes (RIGHT ILIAC STENT; 4 VESSEL CABG AND RIGHT CAROTID ENDARTERECTOMY 12/2015) Atrial Fibrillation, Coronary Artery Disease, High Cholesterol, Hypertension, Peripheral Vascular Neurological: Yes Headaches /Migraines, Neuropathy, Stroke Reproductive Disorders: No Female Reproductive Disorders: Denies [employer] 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, Menopausal Sexually Transmitted Disease: No HIV/AIDS: No Genitourinary: No Gastrointestinal: Yes Gastroesophageal Reflux, Chronic Constipation, Chronic Diarrhea, Hiatal Hernia Musculoskeletal: Yes (CHRONIC NECK PAIN--S/P CERVICAL FUSION) Degenerate Disk Disease, Chronic Back Pain Endocrine: Yes Diabetes, Insulin dep, Hypothyroidsim HEENT: No Loss of Vision: Denies Hearing Impairment: Denies Cancer: No Psychosocial: Yes Anxiety, Depression Integumentary: Yes (PREVIOUS ABCESSES) Blood Disorders: No Adverse Reaction/Blood Tranf: No Family Medical History Cancer G8 BROTHER, Onset:Unknown G8 BROTHER, Onset:Unknown Cancer of colon G8 BROTHER, Onset:Unknown Chest pain 19 MOTHER, Onset:Unknown Colon cancer Congestive heart failure 19 FATHER, Onset:60 years & older Family history: Alzheimer's disease 19 MOTHER, Onset:50's - 60 Family history: Arthritis 19 MOTHER, Onset:Unknown Family history: Asthma 19 FATHER, Onset:Unknown Family history: Cardiovascular disease 19 MOTHER, Onset:50's - 60 Family history: Coronary thrombosis 19 MOTHER, Onset:Unknown Family history: Diabetes mellitus 19 MOTHER, Onset:Unknown Family history: Hypertension 19 MOTHER, Onset:50's - 60 Family history: Thyroid disorder 19 MOTHER, Onset:50's - 60 Heart disease 19 MOTHER, Onset:50's - 60 Human immunodeficiency virus (HIV) seropositivity G8 BROTHER, Onset:40's - 50 Myocardial infarction 19 MOTHER, Onset:50's - 60 No Family History of: Abdominal aortic aneurysm Almont's disease Alcoholism Aphasia Cataract Congenital heart disease Cystic fibrosis Dementia Dysphagia Family history: Allergy Family history: Breast disease Family history: Gastrointestinal disease Family history: Glaucoma Family history: Osteoporosis Headache Hearing loss Hereditary disease History of - anemia History of - disorder History of - respiratory disease History of drug abuse Hypercholesterolemia Infertile Kidney disease Malignant neoplasm of lung Parkinson's disease Prostate cancer Psychotic disorder Seizure disorder Stroke Tuberculosis Visual impairment PSH: -RIGHT ILIAC ARTERY STENT -4 VESSEL CABG 12/2015 -RIGHT CAROTID ENDARTERECTOMY 12/2015 -TONSILLECTOMY -HYSTERECTOMY/BSO -LAPAROSCOPIC RENETTA FUNDOPLICATION -CERVICAL SPINE FUSION Physical Exam Vital Signs Vital Signs - First Documented 05/11/22 13:25 Temp 35.3 Pulse 54 Resp 17 B/P (MAP) 206/95 (132) Pulse Ox 97 O2 Delivery Room Air Capillary Refill : Less Than 3 Seconds Height, Weight, BMI Height: 5'5.00" Weight: 125lbs. 0.0oz. [id number]; 21.00 BMI Method:Stated General Appearance: Chronically ill, Thin, Other (somnolent) Eyes: Bilateral Eye PERRL HEENT: PERRL/EOMI, Other (dry oral mucosa) Neck: Normal Inspection Respiratory: Lungs Clear, Normal Breath Sounds, No Accessory Muscle Use, No Respiratory Distress Cardiovascular: Regular Rate, Rhythm (sinus), Normal Peripheral Pulses Gastrointestinal: Non Tender, Soft Extremity: Normal Inspection Neurologic/Psychiatric: No Motor/Sensory Deficits, Other (rousable to loud voice and physical touch. will follow commands. symmetric strength upper extremities bilaterally; EOMI; no facial droop.) Skin: Warm/Dry, Pallor Focused Exam Lactate Level 05/11/22 13:30: Lactic Acid Level 1.34 Lactic Acid Level Laboratory Tests Test 05/11/22 13:30 Lactic Acid Level 1.34 MMOL/L (0.50-2.00) Procedures/Interventions Patient Education: Explained Benefits, Explained Risks, Pt. Ack. Understanding Breath Sounds per Auscultation: Clear Heart Sounds per Auscultation: Irregular Airway Exam: Mouth opens >2 fingers, Neck Full Range of Motion, Visulation of Uvula Sedation Adminstration Time: 0955 Re-examination Time: 1015 Progress/Results/Core Measures Suspected Sepsis SIRS Temperature: Pulse: 54 Respiratory Rate: 17 Laboratory Tests 05/11/22 13:30: White Blood Count 12.0H Blood Pressure 206 /95 Mean: 132 05/11/22 13:30: Lactic Acid Level 1.34 Laboratory Tests 05/11/22 13:30: Creatinine 2.24H, INR Comment 1.0, Platelet Count 451H, Total Bilirubin 0.3 Results/Orders Lab Results Laboratory Tests Test 05/11/22 13:30 05/11/22 13:37 05/11/22 14:02 05/11/22 14:45 Range/Units White Blood Count 12.0 H 4.3-11.0 10^3/uL Red Blood Count 4.22 3.80-5.11 10^6/uL Hemoglobin 12.3 11.5-16.0 g/dL Hematocrit 38 35-52 % Mean Corpuscular Volume 90 80-99 fL Mean Corpuscular Hemoglobin 29 25-34 pg Mean Corpuscular Hemoglobin Concent 33 32-36 g/dL Red Cell Distribution Width 15.0 H 10.0-14.5 % Platelet Count 451 H 130-400 10^3/uL Mean Platelet Volume 9.6 9.0-12.2 fL Immature Granulocyte % (Auto) 0 % Neutrophils (%) (Auto) 73 42-75 % Lymphocytes (%) (Auto) 16 12-44 % Monocytes (%) (Auto) 7 0-12 % Eosinophils (%) (Auto) 3 0-10 % Basophils (%) (Auto) 1 0-10 % Neutrophils # (Auto) 8.8 H 1.8-7.8 10^3/uL Lymphocytes # (Auto) 1.9 1.0-4.0 10^3/uL Monocytes # (Auto) 0.8 0.0-1.0 10^3/uL Eosinophils # (Auto) 0.3 0.0-0.3 10^3/uL Basophils # (Auto) 0.1 0.0-0.1 10^3/uL Immature Granulocyte # (Auto) 0.0 0.0-0.1 10^3/uL Prothrombin Time 13.1 12.2-14.7 SEC INR Comment 1.0 0.8-1.4 Activated Partial Thromboplast Time 29 24-35 SEC Sodium Level 138 135-145 MMOL/L Potassium Level 3.4 L 3.6-5.0 MMOL/L Chloride Level 102 98-107 MMOL/L Carbon Dioxide Level 24 21-32 MMOL/L Anion Gap 12 5-14 MMOL/L Blood Urea Nitrogen 35 H 7-18 MG/DL Creatinine 2.24 H 0.60-1.30 MG/DL Estimat Glomerular Filtration Rate 25 BUN/Creatinine Ratio 16 Glucose Level 81 70-105 MG/DL Lactic Acid Level 1.34 0.50-2.00 MMOL/L Calcium Level 9.1 8.5-10.1 MG/DL Corrected Calcium 9.7 8.5-10.1 MG/DL Total Bilirubin 0.3 0.1-1.0 MG/DL Aspartate Amino Transf (AST/SGOT) 15 5-34 U/L Alanine Aminotransferase (ALT/SGPT) 18 0-55 U/L Alkaline Phosphatase 168 H 40-136 U/L Total Protein 7.0 6.4-8.2 GM/DL Albumin 3.3 3.2-4.5 GM/DL Blood Gas Puncture Site LEFT RADIAL Blood Gas Patient Temperature 35.3 Arterial Blood pH 7.41 7.37-7.43 Arterial Blood Partial Pressure CO2 43 35-45 MMHG Arterial Blood Partial Pressure O2 76 L 79-93 MMHG Arterial Blood HCO3 27 23-27 MMOL/L Arterial Blood Total CO2 28.7 21.0-31.0 MMOL/L Arterial Blood Oxygen Saturation 99 94-100 % Arterial Blood Base Excess 2.6 H -2.5-2.5 MMOL/L Scar Test POSITIVE Blood Gas Ventilator Setting NO Blood Gas Inspired Oxygen N/A Glucometer 179 H 79 70-110 MG/DL Test 05/11/22 14:54 05/11/22 15:39 05/11/22 16:47 Range/Units Urine Color YELLOW Urine Clarity CLEAR Urine pH 6.5 5-9 Urine Specific [place] 1.020 1.016-1.022 Urine Protein 3+ H NEGATIVE Urine Glucose (UA) 2+ H NEGATIVE Urine Ketones NEGATIVE NEGATIVE Urine Nitrite NEGATIVE NEGATIVE Urine Bilirubin NEGATIVE NEGATIVE Urine Urobilinogen 0.2 < = 1.0 MG/DL Urine Leukocyte Esterase NEGATIVE NEGATIVE Urine RBC (Auto) TRACE-I H NEGATIVE Urine RBC 0-2 /HPF Urine WBC NONE /HPF Urine Squamous Epithelial Cells NONE /HPF Urine Crystals NONE /LPF Urine Bacteria FEW H /HPF Urine Casts NONE /LPF Urine Mucus NEGATIVE /LPF Urine Culture Indicated YES Glucometer 51 *L 43 *L 70-110 MG/DL My Orders Orders - SANIA HYDE MD Cbc With Automated Diff (05/11/22 13:42) Comprehensive Metabolic Panel (05/11/22 13:42) Blood Culture (05/11/22 13:42) Sputum Culture (05/11/22 13:42) Urinalysis (05/11/22 13:42) Urine Culture (05/11/22 13:42) Protime With Inr (05/11/22 13:42) Partial Thromboplastin Time (05/11/22 13:42) Chest 1 View, Ap/Pa Only (05/11/22 13:42) Ed Iv/Invasive Line Start (05/11/22 13:42) Ed Iv/Invasive Line Start (05/11/22 13:42) Vital Signs Adult Sepsis Patie Q15M (05/11/22 13:42) O2 (05/11/22 13:42) Remove Rings In Anticipation O (05/11/22 13:42) Lactic Acid Analyzer (05/11/22 13:42) Arterial Blood Gas (05/11/22 13:42) D50w (Emergency) Syringe (Dextrose 50% 5 (05/11/22 13:45) D5 Ns 1000 Ml Iv Solution (Dextrose 5%/0 (05/11/22 15:00) Ed Admission (Communication) (05/11/22 17:22) Medications Given in ED Vital Signs/I&O 05/11/22 13:25 Temp 35.3 Pulse 54 Resp 17 B/P (MAP) 206/95 (132) Pulse Ox 97 O2 Delivery Room Air 05/12/22 00:00 Intake Total 250 ml Balance 250 ml Capillary Refill : Less Than 3 Seconds Blood Pressure Mean: 132 Point of Care Testing Finger Stick Blood Glucose: 179 Blood Glucose Action Taken: rn notified Progress Note #1: Time: 14:47 Progress Note BS back to 79 after 50ml of D50. Not much improvement in mental status. Progress Note #2: Time: 17:11 Progress Note Patient reevaluated, vital signs remained stable, blood pressure is down to the 160s systolic. She has been on D5 NS for the last couple of hours and her blood sugar continues to drop. She was on 60 cc an hour I have bumped it up to 100. Last blood sugar at 1645 was 43. Clinically she is much more alert and awake, opens her eyes spontaneously and is able to maintain a conversation. Talked to the family members at the bedside, they are concerned about her complex history and need for specialty services such as nephrology. I advised that she is clinically stable enough to stay here and that we can address this problem of hypoglycemia. My suspicion is that she took more insulin than she should although she states now to me that she took 16 units of her long-acting insulin and 12 units of rapid this morning. Her family member at the bedside did not witness her give herself her insulin however this morning she did see her take her morning meds. She has been "sick" over the last couple of months with "liver problems". Currently being followed at [place] for these. Will admit to ICU stepdown on D5. Pending discussion with Dr. Magallon. Diagnostic Imaging Diagonstic Imaging: Xray Plain Films/CT/US/NM/MRI: chest Comments [facility], [place] NAME: TIFFANY GRAMAJO [facility] REC#: [id number] PT STATUS: REG ER : 1960 PHYSICIAN: SANIA HYDE MD ADMIT DATE: 05/11/22/ER Signed Date of Exam:05/11/22 CHEST 1 VIEW, AP/PA ONLY CHEST 1 VIEW, AP/PA ONLY INDICATION: Altered mental status. COMPARISON: 04/16/2022. FINDINGS: Stable left subclavian Port-A-Cath. Improved but persistent bilateral perihilar mixed linear and ill-defined opacities. No pleural effusion or pneumothorax. Stable cardiomegaly. IMPRESSION: 1. Improved but persistent bilateral perihilar opacities which may be due to pulmonary scar. Recurrent/residual edema and/or infection could be present in the appropriate clinical setting. Dictated by: Dictated on workstation # [id number] Dict: 05/11/22 1410 Trans: 05/11/22 1723 [id number] Interpreted by: ALICIA OBREGON MD Electronically signed by: ALICIA OBREGON MD 05/11/22 1723 Critical Care Note Critical Care Start Time: 13:30 Stop Time: 17:00 Total Time (minutes) 45min critical care time in the evaluation and management of this patient with hypoglycemia - symptomatic. TIme includes initial evaluation and management. Supplementation of blood sugar with D50 and D5 drip. Serial re-evaluations of the patient and hourly blood sugar checks with management of D5 drip. Review and interpretation of labs and imaging. Discussion with family and admitting provider. Review of medical history. Departure Communication (Admissions) Time/Spoke to Admitting Phy: 17:[address] Magallon - step down obs Impression Primary Impression: Hypoglycemia associated with diabetes Disposition: ADMITTED INPATIENT Condition: Stable Admissions Decision to Admit Reason: Admit from ER (General) Decision to Admit/Date: May 11, 2022 Time/Decision to Admit Time: 17:19 Departure-Patient Inst. Referrals: JUAN R MAHMOOD DO (PCP/Family) Primary Care Physician SANIA HYDE MD May 11, 2022 14:47
[2022-05-11] MEDS: D5 NS 1000 ML IV SOLUTION 1,000 ML IV SCH (15:00)
[2022-05-11 15:11] LABS: BILIRUBIN,URINE NEGATIVE (NEGATIVE); CLARITY,URINE CLEAR; COLOR,URINE YELLOW; GLUCOSE, URINE (UA) 2+ (NEGATIVE); KETONES,URINE NEGATIVE (NEGATIVE); LEUKOCYTE ESTERASE ,URINE NEGATIVE (NEGATIVE); NITRITE,URINE NEGATIVE (NEGATIVE); PH,URINE 6.5 (5-9); PROTEIN,URINE 3+ (NEGATIVE)
[2022-05-11 15:42] LABS: BACTERIA,URINE FEW /HPF; RBC,URINE 0-2 /HPF
[2022-05-11] MEDS ORDERED: CALCIUM CARBONATE 500 MG (TUMS) TAB.CHEW PO PRN (18:15)
[2022-05-11] MEDS ORDERED: diphenhydrAMINE 25 MG TAB (BENADRYL) PO PRN (18:15)
[2022-05-11] MEDS ORDERED: ANTACID SUSP 30 ML UDC (MYLANTA) PO PRN (18:15)
[2022-05-11] MEDS ORDERED: polyethylene glycoL POWDER 17 GM (MIRALAX) PACK PO PRN (18:15)
[2022-05-11] MEDS ORDERED: ONDANSETRON 4 MG (ZOFRAN) ORAL DISSOLVE TAB PO PRN (18:15)
[2022-05-11] MEDS ORDERED: ACETAMINOPHEN 325 MG TABLET PO PRN (18:15)
[2022-05-11] MEDS ORDERED: LACTULOSE SYRUP 10GM/15ML (ENULOSE) 30ML UDC PO PRN (18:15)
[2022-05-11] MEDS ORDERED: ONDANSETRON 4 MG/2 ML (SDV) Z0FRAN IV PRN (18:15)
[2022-05-11] MEDS ORDERED: DEXTROSE 10% IV SOLUTION 1,000 ML IV SCH (18:15)
[2022-05-11] MEDS ORDERED: diphenhydrAMINE 50 MG/ML INJ (BENADRYL) IVP PRN (18:15)
[2022-05-11] MEDS ORDERED: morphine IMMEDIATE RELEASE 15 MG TABLET PO PRN (18:15)
[2022-05-11] MEDS ORDERED: BISACODYL 10 MG SUPP (DULCOLAX) PR PRN (18:15)
[2022-05-11] MEDS ORDERED: MELATONIN 3 MG TABLET PO PRN (18:15)
[2022-05-11] MEDS ORDERED: HYDROmorphone 2 MG/ML VIAL (DILAUDID) IV PRN (18:15)
[2022-05-11] MEDS ORDERED: DEXTROSE 50% 50 ML (IMS) SYR IV PRN (18:15)
[2022-05-11] MEDS ORDERED: MILK OF MAGNESIA 400 MG/5 ML 30 ML UDC PO PRN (18:15)
[2022-05-11] MEDS ORDERED: RT-ALBUTEROL SULF 2.5 MG/3 ML PRE-MIX VIAL INH PRN (18:30)
[2022-05-11] MEDS: SENNOSIDES 8.6 MG (SENOKOT) TAB PO SCH (20:34)
[2022-05-11] MEDS: DOCUSATE SODIUM 100 MG (COLACE) CAP PO SCH (20:34)
--- NOTE | 2022-05-11 20:35 | History & Physical-Hospitalist ---
History of Present Illness HPI/Chief Complaint Chief complaint: Refractory hypoglycemia HPI: This is a 61-year-old female known to me who has a past medical history of diabetes and chronic kidney disease who presented to the ER after being found down at home by her partner. Apparently she took her insulin as scheduled but unsure how much she took but hypoglycemia has been a refractory issue after diagnosed in the ER requiring D10 drip with D50. Patient appears to be very debilitated. Congestive heart failure diagnosed and she has lost 30 pounds of water weight. Overall she is having no new issues. Her daughter and her partner are at the bedside Source: patient, family, old records Exam Limitations: no limitations Date Seen 05/11/22 Time Seen by a Provider: 18:30 Attending Physician José Manuel Dodge DO PCP Admitting Physician: Tonja Rivers DO Attending Physician: Tonja Rivers DO Referring Physician Date of Admission May 11, 2022 at 17:23 Home Medications & Allergies Home Medications Reviewed patient Home Medication Reconciliation performed by pharmacy medication reconciliations architectural technician and/or nursing. Patients Allergies have been reviewed. Allergies Allergies Coded Allergies ciprofloxacin (Verified Allergy, Mild, redness and itching , 12/04/18) redness and itching at iv site Past Whptkhn-Eembng-Bycghr Hx Patient Social History Marrital Status: cohabiting Employed/Student: unemployed Tobacco Use?: Yes Tobacco type used: Cigarettes Smoking Status: Current Everyday Smoker Smokeless Tobacco Frequency: Current Everyday User Use of E-Cig and/or Vaping dev: No Substance use?: No Alcohol Use?: No Pt feels they are or have been: No Immunizations Up To Date Date of Influenza Vaccine: Apr 17, 2022 First/Initial COVID19 Vaccinat: jul 29 Second COVID19 Vaccination Rakesh: aug 29 Tetanus Booster (TDap): More Than 5 Years Hepatitis A: No Hepatitis B: No PED Vaccines UTD: No Date of Pneumonia Vaccine: Apr 02, 2013 Seasonal Allergies Seasonal Allergies: No Current Status status: No status: No Advance Directives: No Communicates: Verbally Primary Language: Canadian Preferred Spoken Language: Canadian Is interpretation needed?: No Implanted or Applied Medical D: Port-a-cath Past Medical History Surgeries: Abdominal, Cardiac, CABG, Gallbladder, 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, Oophorectomy, Orthopedic, Thyroidectomy, Vascular Surgery COPD Currently Using CPAP: No Currently Using BIPAP: No Atrial Fibrillation, Chronic Edema/Swelling, Coronary Artery Disease, High Cholesterol, Hypertension, Peripheral Vascular Headaches /Migraines, Neuropathy, Stroke 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, Menopausal Sexually Transmitted Disease: No HIV/AIDS: No Gastroesophageal Reflux, Chronic Constipation, Chronic Diarrhea, Hiatal Hernia Degenerate Disk Disease, Chronic Back Pain Diabetes, Insulin dep, Hypothyroidsim Loss of Vision: Denies Hearing Impairment: Denies Anxiety, Depression Blood Disorders: No Adverse Reaction/Blood Tranf: No T1DM on insulin CKD3 Family Medical History Cancer G8 BROTHER, Onset:Unknown G8 BROTHER, Onset:Unknown Cancer of colon G8 BROTHER, Onset:Unknown Chest pain 19 MOTHER, Onset:Unknown Colon cancer Congestive heart failure 19 FATHER, Onset:60 years & older Family history: Alzheimer's disease 19 MOTHER, Onset:50's - 60 Family history: Arthritis 19 MOTHER, Onset:Unknown Family history: Asthma 19 FATHER, Onset:Unknown Family history: Cardiovascular disease 19 MOTHER, Onset:50's - 60 Family history: Coronary thrombosis 19 MOTHER, Onset:Unknown Family history: Diabetes mellitus 19 MOTHER, Onset:Unknown Family history: Hypertension 19 MOTHER, Onset:50's - 60 Family history: Thyroid disorder 19 MOTHER, Onset:50's - 60 Heart disease 19 MOTHER, Onset:50's - 60 Human immunodeficiency virus (HIV) seropositivity G8 BROTHER, Onset:40's - 50 Myocardial infarction 19 MOTHER, Onset:50's - 60 No Family History of: Abdominal aortic aneurysm Thayer's disease Alcoholism Aphasia Cataract Congenital heart disease Cystic fibrosis Dementia Dysphagia Family history: Allergy Family history: Breast disease Family history: Gastrointestinal disease Family history: Glaucoma Family history: Osteoporosis Headache Hearing loss Hereditary disease History of - anemia History of - disorder History of - respiratory disease History of drug abuse Hypercholesterolemia Infertile Kidney disease Malignant neoplasm of lung Parkinson's disease Prostate cancer Psychotic disorder Seizure disorder Stroke Tuberculosis Visual impairment PSH: -RIGHT ILIAC ARTERY STENT -4 VESSEL CABG 12/2015 -RIGHT CAROTID ENDARTERECTOMY 12/2015 -TONSILLECTOMY -HYSTERECTOMY/BSO -LAPAROSCOPIC [facility] FUNDOPLICATION -CERVICAL SPINE FUSION Review of Systems Constitutional: see HPI, malaise, weakness EENTM: no symptoms reported Respiratory: no symptoms reported Cardiovascular: no symptoms reported Gastrointestinal: no symptoms reported Genitourinary: no symptoms reported Musculoskeletal: no symptoms reported Psychiatric/Neurological: Depressed All Other Systems Reviewed Negative Unless Noted: Yes Physical Exam Physical Exam Vital Signs Vital Signs - First Documented 05/11/22 05/11/22 05/11/22 13:25 18:24 18:50 Temp 35.3 Pulse 54 Resp 17 B/P (MAP) 206/95 (132) Pulse Ox 97 O2 Delivery Room Air O2 Flow Rate 0.00 FiO2 21 Capillary Refill : Less Than 3 Seconds Height, Weight, BMI Height: 5'5.00" Weight: 125lbs. 0.0oz. 56.201445mq; 20.72 BMI Method:Stated General Appearance: No Apparent Distress, Chronically ill, Thin Eyes: Right Eye Normal Inspection, Right Eye PERRL HEENT: PERRL/EOMI, Normal ENT Inspection, Pharynx Normal, Moist Mucous Membranes Neck: Full Range of Motion, Normal Inspection, Non Tender Respiratory: Chest Non Tender, Lungs Clear, Normal Breath Sounds, No Accessory Muscle Use, No Respiratory Distress Cardiovascular: Regular Rate, Rhythm, No Edema, No Gallop, No JVD, No Murmur, Normal Peripheral Pulses Gastrointestinal: Normal Bowel Sounds, No Organomegaly, No Pulsatile Mass, Non Tender, Soft Back: Normal Inspection, No CVA Tenderness, No Vertebral Tenderness Extremity: Normal Capillary Refill, Normal Inspection, Normal Range of Motion, Non Tender, No Calf Tenderness, No Pedal Edema Neurologic/Psychiatric: Alert, Oriented x3, No Motor/Sensory Deficits, Normal Mood/Affect Skin: Normal Color, Warm/Dry Lymphatic: No Adenopathy Results Results/Procedures Labs Laboratory Tests 05/11/22 13:30 Patient resulted labs reviewed. 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 History of C. difficile Plan: D10 drip D50 as needed Supportive care Admission Status: Observation TONJA RIVERS 3, 2022 20:35
[2022-05-11] MEDS: APIXABAN 2.5 MG (ELIQUIS) TABLET PO SCH (21:18)
[2022-05-12] VITALS (7 sets, daily range): BP systolic 185–219; BP diastolic 78–95
[2022-05-12 06:15] LABS: BASOPHILS # (AUTO) 0.1 10^3/uL (0.0-0.1); BASOPHILS % (AUTO) 1 % (0-10); EOSINOPHILS # (AUTO) 0.3 10^3/uL (0.0-0.3); EOSINOPHILS % (AUTO) 2 % (0-10); HEMATOCRIT 34 % (35-52); HEMOGLOBIN 11.1 g/dL (11.5-16.0); LYMPHOCYTES # (AUTO) 1.4 10^3/uL (1.0-4.0); LYMPHOCYTES % (AUTO) 12 % (12-44); MEAN CORPUSCULAR HEMOGLOBIN 29 pg (25-34); MEAN CORPUSCULAR HGB CONC 33 g/dL (32-36); MEAN CORPUSCULAR VOLUME 89 fL (80-99); MEAN PLATELET VOLUME 9.9 fL (9.0-12.2); MONOCYTES # (AUTO) 0.8 10^3/uL (0.0-1.0); MONOCYTES % (AUTO) 7 % (0-12); NEUTROPHILS # (AUTO) 9.7 10^3/uL (1.8-7.8); NEUTROPHILS % (AUTO) 78 % (42-75); PLATELET COUNT 331 10^3/uL (130-400); WHITE BLOOD COUNT 12.4 10^3/uL (4.3-11.0)
[2022-05-12 06:34] LABS: ALBUMIN 2.6 GM/DL (3.2-4.5); POTASSIUM 4.2 MMOL/L (3.6-5.0)
[2022-05-12 06:35] LABS: CALCIUM 8.2 MG/DL (8.5-10.1)
[2022-05-12 06:36] LABS: TOTAL PROTEIN 5.6 GM/DL (6.4-8.2)
[2022-05-12 06:38] LABS: BILIRUBIN,TOTAL 0.2 MG/DL (0.1-1.0)
[2022-05-12 06:40] LABS: CREATININE SERUM 2.53 MG/DL (0.60-1.30)
[2022-05-12] MEDS: inSUlin ASPART (NovoLOG) 1 UNIT/0.01 ML (CHARGE PER UNIT) SC SCH ×4 (07:01→21:42)
--- NOTE | 2022-05-12 08:39 | Physical Therapy Evaluation ---
PT Evaluation-General Medical Diagnosis Admission Date May 11, 2022 at 17:23 Medical Diagnosis: Hypoglycemia Onset Date: May 11, 2022 Therapy Diagnosis Therapy Diagnosis: Generalized Weakness Height/Weight Height (Feet): 5 Height (Inches): 5.00 Weight (Pounds): 125 Weight (Ounces): 0.0 Precautions Precautions/Isolations: Fall Prevention, Standard Precautions Weight Bear Status Right Lower Extremity: Right Full Weight Bearing Left Lower Extremity: Left Full Weight Bearing Referral Physician: Tonja Rivers DO Reason for Referral: Evaluation/Treatment Medical History Pertinent Medical History: Atrial Fib, COPD, CVA, DM Additional Medical History Past Medical History Surgery/Hospitalization HX: HTN, CKD, DM, TARIK Surgeries: Yes Abdominal, Cardiac, CABG, Gallbladder, 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, Oophorectomy, Orthopedic, Thyroidectomy, Vascular Surgery Respiratory: Yes COPD Currently Using CPAP: No Currently Using BIPAP: No Cardiac: Yes (RIGHT ILIAC STENT; 4 VESSEL CABG AND RIGHT CAROTID ENDARTERECTOMY 12/2015) Atrial Fibrillation, Coronary Artery Disease, High Cholesterol, Hypertension, Peripheral Vascular Neurological: Yes Headaches /Migraines, Neuropathy, Stroke Reproductive Disorders: No Female Reproductive Disorders: Denies 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, Menopausal Sexually Transmitted Disease: No HIV/AIDS: No Genitourinary: No Gastrointestinal: Yes Gastroesophageal Reflux, Chronic Constipation, Chronic Diarrhea, Hiatal Hernia Musculoskeletal: Yes (CHRONIC NECK PAIN--S/P CERVICAL FUSION) Degenerate Disk Disease, Chronic Back Pain Endocrine: Yes Diabetes, Insulin dep, Hypothyroidsim HEENT: No Loss of Vision: Denies Hearing Impairment: Denies Cancer: No Psychosocial: Yes Anxiety, Depression Integumentary: Yes (PREVIOUS ABCESSES) Blood Disorders: No Adverse Reaction/Blood Tranf: No Reviewed History: Yes Social History Home: Single Level Current Living Status: roommate Entry Into Home: Stairs With Railing PT Steps Into Home: 3 Prior Prior Level of Function SCALE: Activities may be completed with or without assistive devices. 4-Lxcjjodweg-hlpnrfp completes the activity by him/herself with no assistance from a helper. 5-Set-up or Clean-up Assistance-helper sets up or cleans up; patient completes activity. [place] assists only prior to or following the activity. 4-Supervision or Touching Assistance-helper provides verbal cues and/or touching/steadying and/or contact guard assistance as patient completes activity. Assistance may be provided throughout the activity or intermittently. 3-Partial/Moderate Assistance-helper does LESS THAN HALF the effort. [place] lif ts, holds or supports trunk or limbs, but provides less than half the effort. 2-Substantial/Maximal Assistance-helper does MORE THAN HALF the effort. [place] lifts or holds trunk or limbs and provides more than half the effort. 7-Thytpotlq-hlgroq does ALL the effort. Patient does none of the effort to complete the activity. Or, the assistance of 2 or more helpers is required for the patient to complete the activity. If activity was not attempted, code reason: 7-Patient Refused. 9-Not Applicable-not attempted and the patient did not perform the activity before the current illness, exacerbation or injury. 10-Not Attempted due to Environmental Limitations-(lack of equipment, weather restraints, etc.). 88-Not Attempted due to Medical Conditions or Safety Concerns. Bed Mobility: 6 Transfers (B,C,W/C): 6 Gait: 6 Stairs: 6 Indoor Mobility (Ambulation): Independent Stairs: Independent Prior Devices Use: Walker Also has a single-point cane, only use assistive devices if feeling tired that day. PT Evaluation-Current Subjective Patient in bed pre-tx, reports no pain, agrees to PT. Pt/Family Goals Return to independence at home. Objective Patient Orientation: Person, Place, Situation ROM/Strength ROM Lower Extremities WFL Strength Lower Extremities RLE (hip flexion 4-/5, knee extension 5/5, knee flexion 4/5, DF 5/5), LLE (hip flexion 4-/5, knee extension 5/5, knee flexion 4/5, DF 5/5) Neuromuscular (Tone, Coordination, Reflexes) Coordination slightly diminished running into obstacles Sensory Hearing: Functional Sensation Right Lower Extremit: Intact Sensation Left Lower Extremity: Intact Transfers Roll Left to Right (QC): 6 Sit to Lying (QC): 6 Lying to Sitting/Side of Bed(Q: 6 Sit to Stand (QC): 4 (CGA) Gait Does the Patient Walk?: Yes Mode of Locomotion: Walk Anticipated Mode of Locomotion: Walk Walk 10 feet (QC): 4 Walk 50 ft with 2 Turns(QC): 4 Walk 150 ft (QC): 4 Distance: 150' Gait Assistive Device: FWW Comments/Gait Description CGA, patient walks with functional gait speed, step length, and foot clearance. Patient in bed post-tx with nurse call, phone, all needs met. Balance Sitting Static: Normal Sitting Dynamic: Normal Standing Static: Normal Standing Dynamic: Normal Treatment Ambulation, LE Strengthening (AP 10 reps, heel slides 10 reps, quad sets 10 reps) Assessment/Needs Patient overrall has slightly diminished strength but decent balance. Rehab Potential: Good PT Yarn Handler Goals Halfway Goals PT Yarn Handler Goals Time Frame: May 19, 2022 Roll Left & Right (QC): 6 Sit to Lying (QC): 6 Lying-Sitting on Side/Bed(QC): 6 Sit to Stand (QC): 6 Chair/Gzq-gk-Engzb Xfer(QC): 6 Walk 10 feet (QC): 6 Walk 50ft with 2 Turns (QC): 6 Walk 150 ft (QC): 6 1 Step (curb) (QC): 6 4 Steps (QC): 6 Does the Pt use WC or Scooter?: No PT Plan Problem List Problem List: Activity Tolerance, Functional Strength, Safety, Balance, Gait, Transfer, Bed Mobility, ROM Treatment/Plan Treatment Plan: Continue Plan of Care Treatment Plan: Bed Mobility, Education, Functional Activity Pauly, Functional Strength, Gait, Safety, Therapeutic Exercise, Transfers Treatment Duration: May 19, 2022 Frequency: 6 times per week Estimated Hrs Per Day: .25 hour per day Patient and/or Family Agrees t: Yes Safety Risks/Education Patient Education: Gait Training, Transfer Techniques, Correct Positioning, Safety Issues Teaching Recipient: Patient Teaching Methods: Demonstration, Discussion Response to Teaching: Reinforcement Needed Discharge Recommendations Plan Patient will perform bed mobility and transfer training, stair and gait training, endurance and balance training in order to be more independent at home. Therapy Discharge Recommendati: Home & Family, Post Acute PT Time Time In: 803 Time Out: 816 DATE: May 12, 2022 Total Billed Treatment Time: 13 Total Billed Treatment 1 visit EVL 13min MARY ANDREWS PT May 12, 2022 08:39
[2022-05-12] MEDS: D5 NS 1000 ML IV SOLUTION 1,000 ML IV SCH (08:56)
--- NOTE | 2022-05-12 10:38 | Occupational Therapy Eval ---
OT Evaluation-General/PLF Medical Diagnosis Admission Date May 11, 2022 at 17:23 Medical Diagnosis: Hypoglycemia Onset Date: May 11, 2022 Therapy Diagnosis Therapy Diagnosis: Weakness Height/Weight Height (Feet): 5 Height (Inches): 5.00 Weight (Pounds): 125 Weight (Ounces): 0.0 Precautions Precautions/Isolations: Fall Prevention, Standard Precautions Referral Physician: Tonja Rivers DO Referral Reason: Evaluation/Treatment Medical History Pertinent Medical History: Atrial Fib, COPD, CVA, DM, Heart Failure, PVD Current History Pt came to ER with low blood sugar and severely high blood pressure. Pt lives with her partner in a single story home. She used a single point cane and walker at baseline. She was independent with ADLs and completed some IADLs, with her partner completing the rest. She stated, "I try to do as much as I can to keep my independence." Reviewed History: Yes Social History Home: Single Level Current Living Status: Significant Other Entry Into Home: Stairs With Railing Steps Into Home: 3 Steps Inside Home: 2 ADL-Prior Level of Function SCALE: Activities may be completed with or without assistive devices. 5-Dvwhmcefkj-ufrdxfs completes the activity by him/herself with no assistance from a helper. 5-Set-up or Clean-up Assistance-helper sets up or cleans up; patient completes activity. [place] assists only prior to or following the activity. 4-Supervision or Touching Assistance-helper provides verbal cues and/or touching/steadying and/or contact guard assistance as patient completes activity. Assistance may be provided throughout the activity or intermittently. 3-Partial/Moderate Assistance-helper does LESS THAN HALF the effort. [place] lifts, holds or supports trunk or limbs, but provides less than half the effort. 2-Substantial/Maximal Assistance-helper does MORE THAN HALF the effort. [place] lifts or holds trunk or limbs and provides more than half the effort. 5-Nxecucozd-hdawia does ALL the effort. Patient does none of the effort to complete the activity. Or, the assistance of 2 or more helpers is required for the patient to complete the activity. If activity was not attempted, code reason: 7-Patient Refused. 9-Not Applicable-not attempted and the patient did not perform the activity before the current illness, exacerbation or injury. 10-Not Attempted due to Environmental Limitations-(lack of equipment, weather restraints, etc.). 88-Not Attempted due to Medical Conditions or Safety Concerns. Self Care: Independent Functional Cognition: Needed Some Help (her partner stated that she has been confused lately (past couple months, it has worsened)) DME/Equipment: Bath Chair, Grab Bars, Tub/Shower Drive Self: No OT Current Status Subjective Pt was laying in bed upon arrival. Her partner was in the room as well. She agreed to a therapy eval. Appearance Pt was left sitting in bed with all needs within reach. 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 Sit<>stand: Supervision. Pt able to doff/don bilateral socks with independence using the figure 4 method. She completed oral hygiene standing at sink with supervision for safety. Pt completed all steps of toileting with independence. She Ambulated throughout room with FWW. SBA for safety provided as pt has tendency to get close to objects when maneuvering through room. No LOB observed and pt able to correct post cues. Pt and pt's partner denies any self-care concerns and that pt is currently at baseline for adls. During the eval pt and pt's partner bring up concerns for medication management. They reported that she very often forgets to take her meds because there are so many throughout the day and some are 20 min after other pills. She reported she puts them out on the counter but then forgets to take them due to needing to come back after 20 min to take them. Strategies and education was given to both pt and pt's partner about creating alarms on her phone for reminders to take meds. They stated that they had not attempted nor thought of this and that they would give it a try. Education OT Patient Education: Correct positioning, Energy conservation, Progress toward Goal/Update tx plan, Purpose of tx/functional activities, Rehab process, Safety issues Teaching Recipient: Patient, Significant Other Teaching Methods: Discussion Response to Teaching: Verbalize Understanding, Return Demonstration OT Way Inspector Goals Assisted Goals 1=Demonstrate adherence to instructed precautions during ADL tasks. 2=Patient will verbalize/demonstrate understanding of assistive devices/modifications for ADL. 3=Patient will improve strength/tolerance for activity to enable patient to perform ADL's. OT Education/Plan Problem List/Assessment Assessment: No Skilled OT Needs ID'd Discharge Recommendations Plan/Recommendations: Discontinue OT Therapy Discharge Recommendati: Homemaker Support, Home & Family Treatment Plan/Plan of Care Treatment,Training & Education: Yes Patient would benefit from OT for education, treatment and training to promote independence in ADL's, mobility, safety and/or upper extremity function for ADL's. Plan of Care: ADL Retraining, Caregiver Training, Cognitive Retraining, Functional Mobility Treatment Duration: May 12, 2022 Frequency: 1 time per week Estimated Hrs Per Day: .25 hour per day Agreement: Yes Rehab Potential: Good Time Start Time: 09:56 Stop Time: 10:19 DATE: May 12, 2022 Total Time Billed (hr/min): 23 Billed Treatment Time 1 visit EVL (10 min) ADL (13 min) Marnie Williamson OT May 12, 2022 10:38
[2022-05-12] MEDS: DOCUSATE SODIUM 100 MG (COLACE) CAP PO SCH ×2 (10:43→20:10)
[2022-05-12] MEDS: SENNOSIDES 8.6 MG (SENOKOT) TAB PO SCH ×2 (10:43→20:10)
[2022-05-12] MEDS: APIXABAN 2.5 MG (ELIQUIS) TABLET PO SCH ×2 (10:43→20:10)
[2022-05-12] MEDS ORDERED: amLODIPine 5 MG (NORVASC) TAB PO NR (11:00)
--- NOTE | 2022-05-12 11:42 | Progress Note - Hospitalist ---
DELPHINE EDUARDO 05/12/22 1142: Subjective HPI/CC On Admission Date Seen by Provider: May 12, 2022 Time Seen by Provider: 07:45 Chief complaint: Refractory hypoglycemia HPI: This is a 61-year-old female known to me who has a past medical history of diabetes and chronic kidney disease who presented to the ER after being found down at home by her partner. Apparently she took her insulin as scheduled but unsure how much she took but hypoglycemia has been a refractory issue after diagnosed in the ER requiring D10 drip with D50. Patient appears to be very debilitated. Congestive heart failure diagnosed and she has lost 30 pounds of water weight. Overall she is having no new issues. Her daughter and her p artner are at the bedside Subjective/Events-last exam Patient is a 61 year old woman admitted for refractory hypoglycemia due to possible accidental insulin overdose. She received 250 ml bolus of D10 in route to the hospital and was somnolent but rousable on arrival. States that she is feeling much better this morning. Today she is alert and oriented x3 and in no acute distress. She denies N/V, headaches, vision changes. Notes minor lightheadedness, minor SOB, and states that it feels like her heart sometimes skips a beat. Review of Systems General: No Chills HEENT: No Head Aches, No Visual Changes Pulmonary: Dyspnea Cardiovascular: Lt Headedness, Other (Feels like her heart occasionally skips a beat) Gastrointestinal: No: Nausea, Vomiting, Abdominal Pain, Diarrhea, Constipation Genitourinary: No Dysuria; Frequency (She believes is related to the amount of IV fluid she is receiving) Neurological: Confusion (Family notes some minor memory problems); No: Numbness, Change in speech Focused Exam Sepsis Stage: Ruled Out Reason for ruling out sepsis: Patient does not meet SIRS criteria needed for sepsis diagnosis Lactate Level 05/11/22 13:30: Lactic Acid Level 1.34 Objective Exam Vital Signs Vital Signs Date Time Temp Pulse Resp B/P (MAP) Pulse Ox O2 Delivery O2 Flow Rate FiO2 05/12/22 09:22 96 Room Air 0.00 05/12/22 07:47 36.6 73 20 185/81 (115) 05/11/22 18:24 21 Capillary Refill : Less Than 3 Seconds General Appearance: No Apparent Distress, WD/WN Neck: Full Range of Motion, Normal Inspection, Non Tender, Supple; No Carotid Bruit, No JVD Respiratory: Chest Non Tender, No Accessory Muscle Use, No Respiratory Distress, Wheezing (Minor wheezing in right upper lobe) Cardiovascular: Regular Rate, Rhythm, No Edema, No Gallop, No JVD, Normal Per ipheral Pulses, Systolic Murmur (Quiet systolic murmur heard at upper sternal border); No JVD Gastrointestinal: Normal Bowel Sounds, No Organomegaly, No Pulsatile Mass, Non Tender, Soft Back: Normal Inspection Extremity: Normal Capillary Refill, Normal Inspection, Non Tender, No Calf Tenderness Neurologic/Psychiatric: Alert, Oriented x3, No Motor/Sensory Deficits, Normal Mood/Affect Skin: Normal Color, Warm/Dry Results/Procedures Lab Laboratory Tests 05/11/22 13:30 05/12/22 05:48 Patient resulted labs reviewed. Radiology Date of Exam:05/11/22 CHEST 1 VIEW, AP/PA ONLY CHEST 1 VIEW, AP/PA ONLY INDICATION: Altered mental status. COMPARISON: 04/16/2022. FINDINGS: Stable left subclavian Port-A-Cath. Improved but persistent bilateral perihilar mixed linear and ill-defined opacities. No pleural effusion or pneumothorax. Stable cardiomegaly. IMPRESSION: 1. Improved but persistent bilateral perihilar opacities which may be due to pulmonary scar. Recurrent/residual edema and/or infection could be present in the appropriate clinical setting. Dictated by: Dictated on workstation # [id number] Dict: 05/11/22 1410 Trans: 05/11/22 1723 [id number] Interpreted by: ALICIA OBREGON MD Electronically signed by: ALICIA OBREGON MD 05/11/22 1723 Med Patient initially given dextrose 50% due to severe hypoglycemia. Switched to D10 before being held due to resultant hyperglycemia in the 400s. Also on insulin aspart, apixaban. Hydralazine and amlodipine ordered for high BP. Assessment/Plan Assessment and Plan Assess & Plan/Chief Complaint Severe hypoglycemia due to possible accidental insulin overdose - patient no longer hypoglycemic after infusions of D50 and D10. Dextrose solutions held and careful blood glucose monitoring initiated. Permissive hyperglycemia strategy initiated to replenish glycogen stores. Acute on chronic kidney disease - continue fluid management, repeat kidney function labs as needed. Control blood pressure. Hypertensive urgency - orders placed for amlodipine and hydralazine Telemetry to be discontinued, patient to be moved to 4th floor Clinical Quality Measures DVT/VTE Risk/Contraindication: VTE Addressed: Yes VTE Present on Admission: No TONJA MAGALLON DO 05/12/222053: Subjective Subjective/Events-last exam Pt is doing a lot better Wide variation of blood sugar given her brittle status and chronic kidney disease and recent severe hypoglycemia refractory Permissive hyperglycemia allowed Creatinine is 2.5 Moving around with therapy pretty well Likely go home tomorrow Supervisory-Addendum Brief Verification & Attestation Participated in pt care: history, MDM, physical Personally performed: exam, history, MDM, supervision of care Care discussed with: Medical Student Procedures: n/a Results interpretation: Verified all documentation Verification and Attestation of Medical Student E/M Service A medical student performed and documented this service in my presence. I reviewed and verified all information documented by the medical student and made modifications to such information, when appropriate. I personally performed the physical exam and medical decision making. Tonja Magallon, May 12, 2022,20:54 DELPHINE EDUARDO May 12, 2022 11:42 TONJA MAGALLON DO May 12, 2022 20:54
[2022-05-12] MEDS ORDERED: METO50TA7 PO (14:52)
[2022-05-12] MEDS ORDERED: IPRA3AMP31 IH (14:52)
[2022-05-12] MEDS ORDERED: BUSP15TA60 PO (14:52)
[2022-05-12] MEDS ORDERED: HYDR-3923 PO (14:52)
[2022-05-12] MEDS ORDERED: ERGO1250 PO (14:52)
[2022-05-12] MEDS ORDERED: FERR325T24 PO (14:52)
[2022-05-12] MEDS ORDERED: APIX2.5T PO (14:52)
[2022-05-12] MEDS ORDERED: DILT300C52 PO (14:52)
[2022-05-12] MEDS ORDERED: DONE5TAB30 PO (14:52)
[2022-05-12] MEDS ORDERED: FLUT1BLS12 INH (14:52)
[2022-05-12] MEDS ORDERED: CETI10TA17 PO (14:52)
[2022-05-12] MEDS ORDERED: TIOT18CA2 INH (14:52)
[2022-05-12] MEDS: hydrALAZINE (APRESOLINE) 25 MG TAB PO PRN ×2 (15:47→21:49)
[2022-05-12] MEDS ORDERED: amLODIPine 5 MG (NORVASC) TAB PO SCH (21:00)
[2022-05-12] MEDS: cloNIDine 0.1 MG (CATAPRES) TAB PO PRN (23:24)
[2022-05-13] VITALS (11 sets, daily range): BP systolic 98–217; BP diastolic 55–84
[2022-05-13] MEDS: cloNIDine 0.1 MG (CATAPRES) TAB PO PRN ×3 (01:48→05:43)
[2022-05-13] MEDS: hydrALAZINE (APRESOLINE) 25 MG TAB PO PRN (03:15)
[2022-05-13 06:00] LABS: BASOPHILS # (AUTO) 0.1 10^3/uL (0.0-0.1); BASOPHILS % (AUTO) 1 % (0-10); EOSINOPHILS # (AUTO) 0.3 10^3/uL (0.0-0.3); EOSINOPHILS % (AUTO) 3 % (0-10); HEMATOCRIT 32 % (35-52); HEMOGLOBIN 10.3 g/dL (11.5-16.0); LYMPHOCYTES # (AUTO) 1.9 10^3/uL (1.0-4.0); LYMPHOCYTES % (AUTO) 16 % (12-44); MEAN CORPUSCULAR HEMOGLOBIN 29 pg (25-34); MEAN CORPUSCULAR HGB CONC 33 g/dL (32-36); MEAN CORPUSCULAR VOLUME 91 fL (80-99); MEAN PLATELET VOLUME 9.5 fL (9.0-12.2); MONOCYTES # (AUTO) 0.7 10^3/uL (0.0-1.0); MONOCYTES % (AUTO) 6 % (0-12); NEUTROPHILS # (AUTO) 8.9 10^3/uL (1.8-7.8); NEUTROPHILS % (AUTO) 74 % (42-75); PLATELET COUNT 301 10^3/uL (130-400); WHITE BLOOD COUNT 12.1 10^3/uL (4.3-11.0)
[2022-05-13 06:40] LABS: ALBUMIN 2.6 GM/DL (3.2-4.5); BILIRUBIN,TOTAL 0.2 MG/DL (0.1-1.0); CALCIUM 8.4 MG/DL (8.5-10.1); CREATININE SERUM 2.56 MG/DL (0.60-1.30); POTASSIUM 4.7 MMOL/L (3.6-5.0); TOTAL PROTEIN 5.6 GM/DL (6.4-8.2)
[2022-05-13] MEDS: inSUlin ASPART (NovoLOG) 1 UNIT/0.01 ML (CHARGE PER UNIT) SC SCH ×2 (06:42→13:14)
[2022-05-13] MEDS: APIXABAN 2.5 MG (ELIQUIS) TABLET PO SCH (08:30)
[2022-05-13] MEDS: DOCUSATE SODIUM 100 MG (COLACE) CAP PO SCH (08:36)
[2022-05-13] MEDS: SENNOSIDES 8.6 MG (SENOKOT) TAB PO SCH (08:36)
[2022-05-13] MEDS ORDERED: amLODIPine 5 MG (NORVASC) TAB PO SCH (09:00)
--- NOTE | 2022-05-13 11:15 | Physical Therapy Progress Note ---
Therapy Progress Note Pt refused treatment and noted that she would get up later in the day. KELLY CHINCHILLA PT May 13, 2022 11:15
[2022-05-13] MEDS ORDERED: GLUC1KIT IJ (12:11)
[2022-05-13] MEDS ORDERED: INSU100C3 SQ (12:11)
== END 2022-05-13 12:07 | disposition home or self-care (01) ==
LOC: EDUNIT# 13:22 → ER 13:23 → UNDOADMOB 17:23 → CSD 17:23 → 4TH 05-12 14:39 → UNDODISOB 05-13 12:07
PROVIDERS: ADMIT Internal Medicine; ATTEND Internal Medicine
DX: E16.2 Hypoglycemia, unspecified (principal); F17.210 Nicotine dependence, cigarettes, uncomplicated; Z28.311 Partially vaccinated for COVID-19; E10.22 Type 1 diabetes mellitus with diabetic chronic kidney disease; N18.30 Chronic kidney disease, stage 3 unspecified; I50.9 Heart failure, unspecified; Z86.73 Personal history of transient ischemic attack (TIA), and cerebral infarction without residual deficits; J44.9 Chronic obstructive pulmonary disease, unspecified; I73.9 Peripheral vascular disease, unspecified; I25.10 Atherosclerotic heart disease of native coronary artery without angina pectoris; D63.1 Anemia in chronic kidney disease; I48.91 Unspecified atrial fibrillation; Z79.01 Long term (current) use of anticoagulants; E78.00 Pure hypercholesterolemia, unspecified; E10.42 Type 1 diabetes mellitus with diabetic polyneuropathy; F32.A Depression, unspecified; Z95.1 Presence of aortocoronary bypass graft; N17.9 Acute kidney failure, unspecified; Z79.899 Other long term (current) drug therapy; Z79.4 Long term (current) use of insulin
CPT/HCPCS: 36415; 51701; 71045; 80053; 81000; 82805; 82947; 83605; 85025; 85610; 85730; 87040; 87088; G0378

== ENCOUNTER 2022-07-20 11:53 | Emergency (ER) | payer OTHER ==
[~2022-07-20] VITALS: Ht 165 cm; Wt 54.0 kg
[~2022-07-20 11:53] MED LIST changes: +BUSP15TA60 PO; +CETI10TA17 PO; +CLOP-31 PO; -CLOP75TA69 PO; +DONE5TAB30 PO; +ERGO1250 PO; +FERR325T24 PO; +FLUT1BLS12 INH; +GLUC1KIT IJ; +HYDR-3923 PO; +INSU100C3 SQ; +IPRA3AMP31 IH; +TIOT18CA2 INH
--- NOTE | 2022-07-20 12:27 | ED General ---
General Chief Complaint: Cardiac/General Problems Stated Complaint: HIGH BLOOD PRESSURE Nursing Triage Note: Pt ambulates to ER using walker. Pt said her doctor is adjusting her medication and now her heart rate is running lower than normal. She states she has had 4-5 falls in the last week. Xrays show no breaks. Pt states Dr. Mahmood's nurse Radha calls to check in on blood pressure was high more than 3x so she sent her to the ER. Patient states she currently has edema and is on lasix. Source of Information: Patient Exam Limitations: No Limitations History of Present Illness Date Seen by Provider: Jul 20, 2022 Time Seen by Provider: 12:05 Initial Comments History obtained from patient. Patient is a 61-year-old female who presents to the emergency department for evaluation of hypertension and intermittent bradycardia over the last few weeks. Patient states her physician has been adjusting her medications and at one point last week she had a heart rate of 35. At that time patient was taking 100 mg metoprolol twice daily. The dose was changed to 100 mg in the morning and 50 mg in the evening. She also takes hydralazine 3 times daily. She states she has had increased dizziness over the last several weeks and over the last few weeks is fallen 4-5 times. She did get imaging after 2 of the falls and there was no fractures noted. Patient endorses some generalized pain related to the falls. She states she has been taking her blood pressure daily and keeping a log. She states she took her blood pressure 3 times over a short period and they were all elevated. She spoke with her physicians nurse who recommended patient come to the ER for further evaluation. She has been taking her antihy pertensives as prescribed. She denies any chest pain, severe headache, or vision change. She endorses a history of kidney disease and currently takes Lasix for lower extremity edema. Allergies and Home Medications Allergies Coded Allergies: ciprofloxacin (Verified Allergy, Mild, redness and itching , 12/04/18) redness and itching at iv site Patient Home Medication List Home Medication List Reviewed: Yes Albuterol Sulfate (Ventolin Hfa) 1 Puff Puff, 2 PUFF IH Q4H PRN for SHORTNESS OF BREATH, (Reported) Entered as Reported by: JUAN R PEDROZA on 11/02/21 0910 Apixaban (Eliquis) 2.5 Mg Tablet, 2.5 MG PO BID, (Reported) Entered as Reported by: JUAN R PEDROZA on 05/12/22 145 Atorvastatin Calcium (Atorvastatin Calcium) 40 Mg Tablet, 40 MG PO HS, (Reported) Entered as Reported by: JUAN R PEDROZA on 11/09/20 1153 Buspirone HCl (Buspirone HCl) 15 Mg Tablet, 15 MG PO BID, (Reported) Entered as Reported by: JUAN R PEDROZA on 05/12/22 145 Calcitriol (Calcitriol) 0.25 Mcg Capsule, 0.25 MCG PO 1200, (Reported) Entered as Reported by: ERROL DAVIS on 07/30/21 0331 Cetirizine HCl (Cetirizine HCl) 10 Mg Tablet, 10 MG PO DAILY, (Reported) Entered as Reported by: JUAN R PEDROZA on 05/12/22 145 Diltiazem HCl (Diltiazem 24Hr ER) 300 Mg Cap.er.24h, 300 MG PO DAILY, (Reported) Entered as Reported by: JUAN R PEDROZA on 05/12/22 145 Donepezil HCl (Donepezil HCl) 5 Mg Tablet, 5 MG PO HS, (Reported) Entered as Reported by: JUAN R PEDROZA on 05/12/22 145 Ergocalciferol (Vitamin D2) (Vitamin D2) 1,250 Mcg (69290 Unit) Capsule, 1,250 MCG PO FRI, (Reported) Entered as Reported by: JUAN R PEDROZA on 05/12/22 145 Ferrous Sulfate (Ferosul) 325 Mg (65 Mg Iron) Tablet, 325 MG PO 1200, (Reported) Entered as Reported by: JUAN R PDEROZA on 05/12/22 145 Fluticasone Propion/Salmeterol (Fluticasone-Salmeterol 250-50) 250 Mcg-50 Mcg/Dose Blst.w.dev, 1 PUFF INH BID, (Reported) Entered as Reported by: JUAN R PEDROZA on 05/12/22 145 Folic Acid (Folic Acid) 1 Mg Tablet, 1 MG PO DAILY, (Reported) Entered as Reported by: JUAN R PEDROZA on 11/15/21 1513 Gabapentin (Gabapentin) 100 Mg Capsule, 100 MG PO HS, (Reported) Entered as Reported by: EFE PATTERSON on 12/20/15 1348 Glucagon,Human Recombinant (Glucagon Emergency Kit) 1 Mg Soln, 1 MG IJ ONCE Prescribed by: JOSE BAKER on 05/13/22 1211 Hydralazine HCl (Hydralazine HCl) 25 Mg Tablet, 25 MG PO BID, (Reported) Entered as Reported by: JUAN R PEDROZA on 05/12/22 145 Insulin Aspart (Novolog) 100 Unit/Ml Cartridge, 8 UNITS SQ AC Prescribed by: JOSE BAKER on 05/13/22 1211 Insulin Determir (Levemir) 100 Unit/Ml Soln, 14 UNITS SQ BID, (Reported) Entered as Reported by: JUAN R PEDROZA on 11/02/21 1647 Ipratropium/Albuterol Sulfate (Iprat-Albut 0.5-3(2.5) mg/3 ml) 0.5 Mg-3 Mg (2.5 Mg Base)/3 Ml Ampul.neb, 3 ML IH Q6H PRN for SHORTNESS OF BREATH, (Reported) Entered as Reported by: JUAN R PEDROZA on 05/12/22 145 Levothyroxine Sodium (Levothyroxine Sodium) 25 Mcg Tablet, 25 MCG PO DAILY, (Reported) Entered as Reported by: JUAN R PEDROZA on 11/02/21 164 Levothyroxine Sodium (Levothyroxine Sodium) 200 Mcg Tablet, 200 MCG PO DAILY, (Reported) Entered as Reported by: JUAN R PEDROZA on 11/02/21 164 Metoprolol Succinate (Metoprolol Succinate) 50 Mg Tab.er.24h, 50 MG PO DAILY, (Reported) Entered as Reported by: JUAN R PEDROZA on 05/12/22 1452 Montelukast Sodium (Montelukast Sodium) 10 Mg Tablet, 10 MG PO HS, (Reported) Entered as Reported by: ERROL DAVIS on 07/30/21 0331 Pantoprazole Sodium (Pantoprazole Sodium) 40 Mg Tablet.dr, 40 MG PO BID, (Reported) Entered as Reported by: JUAN R PEDROZA on 11/09/20 1153 Paroxetine HCl (Paroxetine HCl) 40 Mg Tablet, 40 MG PO DAILY, (Reported) Entered as Reported by: LUIS TOWNSEND on 11/30/15 1408 Tiotropium [place] (Spiriva) 18 Mcg Aerp, 1 PUFF INH DAILY, (Reported) Entered as Reported by: JUAN R PEDROZA on 05/12/22 0531 Review of Systems Review of Systems Constitutional: no symptoms reported EENTM: no symptoms reported Respiratory: no symptoms reported Cardiovascular: no symptoms reported Gastrointestinal: no symptoms reported Genitourinary: no symptoms reported Musculoskeletal: see HPI Skin: no symptoms reported Psychiatric/Neurological: No Symptoms Reported Hematologic/Lymphatic: No Symptoms Reported Immunological/Allergic: no symptoms reported Past Noxliry-Fpbkat-Wlecgm Hx Patient Social History Tobacco Use?: Yes Tobacco type used: Cigarettes Smoking Status: Current Everyday Smoker Substance use?: No Alcohol Use?: No Immunizations Up To Date Tetanus Booster (TDap): Unknown PED Vaccines UTD: No First/Initial COVID19 Vaccinat: jul 29 Second COVID19 Vaccination Rakesh: aug 29 Third COVID19 Vaccination Date: jul 29 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: [employer] Seasonal Allergies Seasonal Allergies: No Past Medical History Surgery/Hospitalization HX: HTN, CKD, DM, TARIK Surgeries: Yes Abdominal, Cardiac, CABG, Gallbladder, 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, Oophorectomy, Orthopedic, Thyroidectomy, Vascular Surgery Respiratory: Yes COPD Currently Using CPAP: No Currently Using BIPAP: No Cardiac: Yes (RIGHT ILIAC STENT; 4 VESSEL CABG AND RIGHT CAROTID ENDARTERECTOMY 12/2015) Atrial Fibrillation, Chronic Edema/Swelling, Coronary Artery Disease, High Cholesterol, Hypertension, Peripheral Vascular Neurological: Yes Headaches /Migraines, Neuropathy, Stroke Reproductive Disorders: No Female Reproductive Disorders: Denies 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, 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 Sexually Transmitted Disease: No HIV/AIDS: No Genitourinary: No Gastrointestinal: Yes Gastroesophageal Reflux, Chronic Constipation, Chronic Diarrhea, Hiatal Hernia Musculoskeletal: Yes (CHRONIC NECK PAIN--S/P CERVICAL FUSION) Degenerate Disk Disease, Chronic Back Pain Endocrine: Yes Diabetes, Insulin dep, Hypothyroidsim HEENT: No Loss of Vision: Denies Hearing Impairment: Denies Cancer: No Psychosocial: Yes Anxiety, Depression Integumentary: Yes (PREVIOUS ABCESSES) Blood Disorders: No Adverse Reaction/Blood Tranf: No Family Medical History Cancer G8 BROTHER, Onset:Unknown G8 BROTHER, Onset:Unknown Cancer of colon G8 BROTHER, Onset:Unknown Chest pain 19 MOTHER, Onset:Unknown Colon cancer Congestive heart failure 19 FATHER, Onset:60 years & older Family history: Alzheimer's disease 19 MOTHER, Onset:50's - 60 Family history: Arthritis 19 MOTHER, Onset:Unknown Family history: Asthma 19 FATHER, Onset:Unknown Family history: Cardiovascular disease 19 MOTHER, Onset:50 Family history: Coronary thrombosis 19 MOTHER, Onset:Unknown Family history: Diabetes mellitus 19 MOTHER, Onset:Unknown Family history: Hypertension 19 MOTHER, Onset: Family history: Thyroid disorder 19 MOTHER, Onset: Heart disease 19 MOTHER, Onset: Human immunodeficiency virus (HIV) seropositivity G8 BROTHER, Onset:40's - 50 Myocardial infarction 19 MOTHER, Onset:50 No Family History of: Abdominal aortic aneurysm Wilton's disease Alcoholism Aphasia Cataract Congenital heart disease Cystic fibrosis Dementia Dysphagia Family history: Allergy Family history: Breast disease Family history: Gastrointestinal disease Family history: Glaucoma Family history: Osteoporosis Headache Hearing loss Hereditary disease History of - anemia History of - disorder History of - respiratory disease History of drug abuse Hypercholesterolemia Infertile Kidney disease Malignant neoplasm of lung Parkinson's disease Prostate cancer Psychotic disorder Seizure disorder Stroke Tuberculosis Visual impairment PSH: -RIGHT ILIAC ARTERY STENT -4 VESSEL CABG 12/2015 -RIGHT CAROTID ENDARTERECTOMY 12/2015 -TONSILLECTOMY -HYSTERECTOMY/BSO -LAPAROSCOPIC RENETTA FUNDOPLICATION -CERVICAL SPINE FUSION Physical Exam Vital Signs Vital Signs - First Documented 07/20/22 12:00 Temp 36.2 Pulse 77 Resp 20 B/P (MAP) 176/84 (114) Pulse Ox 100 O2 Delivery Room Air Capillary Refill : Less Than 3 Seconds Height, Weight, BMI Height: 5'5.00" Weight: 125lbs. 0.0oz. 56.192260yg; 19.00 BMI Method:Stated General Appearance: No Apparent Distress, WD/WN HEENT: PERRL/EOMI, TMs Normal, Normal ENT Inspection, Pharynx Normal Neck: Full Range of Motion, Normal Inspection, Non Tender, Supple Respiratory: Chest Non Tender, Lungs Clear, Normal Breath Sounds, No Accessory Muscle Use, No Respiratory Distress Cardiovascular: Regular Rate, Rhythm, Normal Peripheral Pulses Gastrointestinal: Non Tender, Soft Extremity: Non Tender, No Calf Tenderness Neurologic/Psychiatric: Alert, Oriented x3, No Motor/Sensory Deficits, Normal Mood/Affect Skin: Normal Color, Warm/Dry Procedures/Interventions Patient Education: Explained Benefits, Explained Risks, Pt. Ack. Understanding Breath Sounds per Auscultation: Clear Heart Sounds per Auscultation: Irregular Airway Exam: Mouth opens >2 fingers, Neck Full Range of Motion, Visulation of Uvula Sedation Adminstration Time: 0955 Re-examination Time: 1015 Progress/Results/Core Measures Suspected Sepsis SIRS Temperature: Pulse: 77 Respiratory Rate: 20 Laboratory Tests 07/20/22 12:50: White Blood Count 15.5H Blood Pressure 176 /84 Mean: 114 Laboratory Tests 07/20/22 12:50: Creatinine 2.68H, Platelet Count 409H, Total Bilirubin 0.2 Results/Orders Lab Results Laboratory Tests Test 07/20/22 12:50 Range/Units White Blood Count 15.5 H 4.3-11.0 10^3/uL Red Blood Count 3.71 L 3.80-5.11 10^6/uL Hemoglobin 10.6 L 11.5-16.0 g/dL Hematocrit 33 L 35-52 % Mean Corpuscular Volume 90 80-99 fL Mean Corpuscular Hemoglobin 29 25-34 pg Mean Corpuscular Hemoglobin Concent 32 32-36 g/dL Red Cell Distribution Width 15.3 H 10.0-14.5 % Platelet Count 409 H 130-400 10^3/uL Mean Platelet Volume 9.5 9.0-12.2 fL Immature Granulocyte % (Auto) 0 % Neutrophils (%) (Auto) 78 H 42-75 % Lymphocytes (%) (Auto) 11 L 12-44 % Monocytes (%) (Auto) 9 0-12 % Eosinophils (%) (Auto) 1 0-10 % Basophils (%) (Auto) 0 0-10 % Neutrophils # (Auto) 12.1 H 1.8-7.8 X 10^3 Lymphocytes # (Auto) 1.7 1.0-4.0 X 10^3 Monocytes # (Auto) 1.3 H 0.0-1.0 X 10^3 Eosinophils # (Auto) 0.2 0.0-0.3 10^3/uL Basophils # (Auto) 0.1 0.0-0.1 10^3/uL Immature Granulocyte # (Auto) 0.0 0.0-0.1 10^3/uL Neutrophils % (Manual) 76 % Lymphocytes % (Manual) 16 % Monocytes % (Manual) 5 % Eosinophils % (Manual) 2 % Basophils % (Manual) 0 % Band Neutrophils 1 % Anisocytosis SLIGHT Sodium Level 140 135-145 MMOL/L Potassium Level 4.3 3.6-5.0 MMOL/L Chloride Level 107 98-107 MMOL/L Carbon Dioxide Level 28 21-32 MMOL/L Anion Gap 5 5-14 MMOL/L Blood Urea Nitrogen 47 H 7-18 MG/DL Creatinine 2.68 H 0.60-1.30 MG/DL Estimat Glomerular Filtration Rate 20 BUN/Creatinine Ratio 18 Glucose Level 68 L 70-105 MG/DL Calcium Level 9.6 8.5-10.1 MG/DL Corrected Calcium 10.4 H 8.5-10.1 MG/DL Total Bilirubin 0.2 0.1-1.0 MG/DL Aspartate Amino Transf (AST/SGOT) 12 5-34 U/L Alanine Aminotransferase (ALT/SGPT) 10 0-55 U/L Alkaline Phosphatase 123 40-136 U/L Total Protein 6.4 6.4-8.2 GM/DL Albumin 3.0 L 3.2-4.5 GM/DL My Orders Orders - CHRISTAL JOHN APRN Cbc With Automated Diff (07/20/22 12:20) Comprehensive Metabolic Panel (07/20/22 12:20) Manual Differential (07/20/22 12:50) Vital Signs/I&O 07/20/22 12:00 Temp 36.2 Pulse 77 Resp 20 B/P (MAP) 176/84 (114) Pulse Ox 100 O2 Delivery Room Air Capillary Refill : Less Than 3 Seconds Blood Pressure Mean: 114 Progress Note : Progress Note Patient is nontoxic and well-hydrated on exam. No adventitious lung sounds or increased work of breathing noted. Vital signs reassuring with no bradycardia. Patient does have some moderate hypertension but this appears improved from the values noted on patient's blood pressure log from today. Patient denies any acute symptomology concerning for hypertensive emergency at this time. A CBC and CMP were ordered to obtain screening labs to ensure no marked abnormality is noted. I had a lengthy discussion with patient that current recommendations dictate that we do not proceed with a significant amount of diagnostic studies in the emergency department for asymptomatic hypertension. I noted patient is currently on hydralazine and may be having some rebound hypertension with this. I discussed that patient likely would need further tailoring of her medications to help with better blood pressure control as well as preventing side effects that may lead to further dizziness and potential falls. CBC notable for leukocytosis but this does not appear to be markedly increased from baseline per review of historical labs. There are no specific findings concerning for any acute infectious process at this time. Patient also has very mild anemia. CMP notable for elevated creatinine and BUN. These are not markedly increased from historical values per review of EMR. Will discharge home with recommendations for supportive care and close follow-up with PCP. Return precautions for urgent symptomology discussed. Patient verbalized understanding. Departure Impression Primary Impression: Hypertensive urgency Disposition: HOME, SELF-CARE Condition: Stable Departure-Patient Inst. Decision time for Depature: 13:40 Referrals: JUAN R MAHMOOD DO (PCP/Family) Primary Care Physician Patient Instructions: High Blood Pressure (DC) Add. Discharge Instructions: Follow-up closely with your regular physician. You will likely need further adjustments to your medications. The hydralazine that you are currently on has been showed to sometimes cause rebound hypertension meaning your blood pressure can actually increase to higher levels once the medication wears off. It also has a higher rate of causing periods of low blood pressure that can make you dizzy and unsteady. 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 Fortunately your lab work today does not reveal any concerning findings. All discharge instructions reviewed with patient and/or family. Voiced understanding. CHRISTAL JOHN APRN Jul 20, 2022 12:27
[2022-07-20 12:58] LABS: BASOPHILS # (AUTO) 0.1 10^3/uL (0.0-0.1); BASOPHILS % (AUTO) 0 % (0-10); EOSINOPHILS # (AUTO) 0.2 10^3/uL (0.0-0.3); EOSINOPHILS % (AUTO) 1 % (0-10); HEMATOCRIT 33 % (35-52); HEMOGLOBIN 10.6 g/dL (11.5-16.0); LYMPHOCYTES # (AUTO) 1.7 X 10^3 (1.0-4.0); LYMPHOCYTES % (AUTO) 11 % (12-44); MEAN CORPUSCULAR HEMOGLOBIN 29 pg (25-34); MEAN CORPUSCULAR HGB CONC 32 g/dL (32-36); MEAN CORPUSCULAR VOLUME 90 fL (80-99); MEAN PLATELET VOLUME 9.5 fL (9.0-12.2); MONOCYTES # (AUTO) 1.3 X 10^3 (0.0-1.0); MONOCYTES % (AUTO) 9 % (0-12); NEUTROPHILS # (AUTO) 12.1 X 10^3 (1.8-7.8); NEUTROPHILS % (AUTO) 78 % (42-75); PLATELET COUNT 409 10^3/uL (130-400); WHITE BLOOD COUNT 15.5 10^3/uL (4.3-11.0)
[2022-07-20 13:08] LABS: POTASSIUM 4.3 MMOL/L (3.6-5.0)
[2022-07-20 13:10] LABS: CALCIUM 9.6 MG/DL (8.5-10.1)
[2022-07-20 13:11] LABS: TOTAL PROTEIN 6.4 GM/DL (6.4-8.2)
[2022-07-20 13:13] LABS: BILIRUBIN,TOTAL 0.2 MG/DL (0.1-1.0)
[2022-07-20 13:14] LABS: CREATININE SERUM 2.68 MG/DL (0.60-1.30)
[2022-07-20 13:32] LABS: ANISOCYTOSIS SLIGHT; BAND NEUTROPHILS 1 %; BASOPHILS % (MANUAL) 0 %; EOSINOPHILS % (MANUAL) 2 %; LYMPHOCYTES % (MANUAL) 16 %; MONOCYTES % (MANUAL) 5 %; NEUTROPHILS % (MANUAL) 76 %
[2022-07-20 14:06] VITALS: BP 174/90
== END 2022-07-20 14:10 | disposition home or self-care (01) ==
LOC: EDUNIT# 11:53 → ER 11:54
DX: I16.0 Hypertensive urgency (principal); I12.9 Hypertensive chronic kidney disease with stage 1 through stage 4 chronic kidney disease, or unspecified chronic kidney disease; E11.22 Type 2 diabetes mellitus with diabetic chronic kidney disease; N18.9 Chronic kidney disease, unspecified; F17.210 Nicotine dependence, cigarettes, uncomplicated; D72.829 Elevated white blood cell count, unspecified; Z79.4 Long term (current) use of insulin
CPT/HCPCS: 36415; 80053; 85007; 85027; 99281

== ENCOUNTER 2022-07-31 15:05 | Emergency (ER) | payer OTHER ==
[~2022-07-31] VITALS: Ht 165 cm; Wt 56.2 kg
[2022-07-31 15:52] LABS: BASOPHILS # (AUTO) 0.1 10^3/uL (0.0-0.1); BASOPHILS % (AUTO) 1 % (0-10); EOSINOPHILS # (AUTO) 0.2 10^3/uL (0.0-0.3); EOSINOPHILS % (AUTO) 1 % (0-10); HEMATOCRIT 31 % (35-52); HEMOGLOBIN 9.7 g/dL (11.5-16.0); LYMPHOCYTES # (AUTO) 1.1 10^3/uL (1.0-4.0); LYMPHOCYTES % (AUTO) 8 % (12-44); MEAN CORPUSCULAR HEMOGLOBIN 28 pg (25-34); MEAN CORPUSCULAR HGB CONC 31 g/dL (32-36); MEAN CORPUSCULAR VOLUME 91 fL (80-99); MEAN PLATELET VOLUME 9.8 fL (9.0-12.2); MONOCYTES # (AUTO) 0.9 10^3/uL (0.0-1.0); MONOCYTES % (AUTO) 7 % (0-12); NEUTROPHILS # (AUTO) 11.4 10^3/uL (1.8-7.8); NEUTROPHILS % (AUTO) 83 % (42-75); PLATELET COUNT 372 10^3/uL (130-400); WHITE BLOOD COUNT 13.8 10^3/uL (4.3-11.0)
[2022-07-31 16:06] LABS: POTASSIUM 4.6 MMOL/L (3.6-5.0)
[2022-07-31 16:08] LABS: CALCIUM 8.7 MG/DL (8.5-10.1)
[2022-07-31 16:09] LABS: TOTAL PROTEIN 6.4 GM/DL (6.4-8.2)
[2022-07-31 16:09] LABS: BILIRUBIN,URINE NEGATIVE (NEGATIVE); CLARITY,URINE CLEAR; COLOR,URINE YELLOW; GLUCOSE, URINE (UA) 3+ (NEGATIVE); KETONES,URINE NEGATIVE (NEGATIVE); LEUKOCYTE ESTERASE ,URINE NEGATIVE (NEGATIVE); NITRITE,URINE NEGATIVE (NEGATIVE); PROTEIN,URINE 3+ (NEGATIVE)
--- NOTE | 2022-07-31 16:10 | ED Abdominal Pain ---
General Chief Complaint: Abdominal/GI Problems Stated Complaint: BLACK DIARRHEA Nursing Triage Note: PT PRESENTS TO ED VIA POV FROM HOME WITH COMPLAINTS OF BLACK, DARK TARRY STOOLS X 2 DAYS. PT REPROTS SHE SAW DR CHEEK IN HIS OFFICE TODAY FOR SOME BRADYCARDIA AND WAS REFERRED TO ED FOR SUSPECTED GI BLEED. Source of Information: Patient Exam Limitations: No Limitations History of Present Illness Date Seen by Provider: Jul 31, 2022 Time Seen by Provider: 16:17 Initial Comments This is a 61 yo female with history of CHF, A-fib on Eliquis, and CKD who presented to the ER from Dr. Jeffries's office to be evaluated for potential GI bleed. States she has had black, dark, tarry stools for the past 2 days. Was instructed to hold her Eliquis until potential GI bleed evaluated. Denies fever, chills, cough, chest pain, nausea, vomiting, abdominal pain. Allergies and Home Medications Allergies Coded Allergies: ciprofloxacin (Verified Allergy, Mild, redness and itching , 12/04/18) redness and itching at iv site Patient Home Medication List Home Medication List Reviewed: Yes Albuterol Sulfate (Ventolin Hfa) 1 Puff Puff, 2 PUFF IH Q4H PRN for SHORTNESS OF BREATH, (Reported) Entered as Reported by: JUAN R PEDROZA on 11/02/21 1647 Apixaban (Eliquis) 2.5 Mg Tablet, 2.5 MG PO BID, (Reported) Entered as Reported by: JUAN R PEDROZA on 05/12/22 1452 Atorvastatin Calcium (Atorvastatin Calcium) 40 Mg Tablet, 40 MG PO HS, (Reported) Entered as Reported by: JUAN R PEDROZA on 11/09/20 1153 Buspirone HCl (Buspirone HCl) 15 Mg Tablet, 15 MG PO BID, (Reported) Entered as Reported by: JUAN R PEDROZA on 05/12/22 145 Calcitriol (Calcitriol) 0.25 Mcg Capsule, 0.25 MCG PO 1200, (Reported) Entered as Reported by: ERROL DAVIS on 07/30/21 0331 Cetirizine HCl (Cetirizine HCl) 10 Mg Tablet, 10 MG PO DAILY, (Reported) Entered as Reported by: JUAN R PEDROZA on 05/12/22 145 Diltiazem HCl (Diltiazem 24Hr ER) 300 Mg Cap.er.24h, 300 MG PO DAILY, (Reported) Entered as Reported by: JUAN R PEDROZA on 05/12/22 145 Donepezil HCl (Donepezil HCl) 5 Mg Tablet, 5 MG PO HS, (Reported) Entered as Reported by: JUAN R PEDROZA on 05/12/22 145 Ergocalciferol (Vitamin D2) (Vitamin D2) 1,250 Mcg (22541 Unit) Capsule, 1,250 MCG PO FRI, (Reported) Entered as Reported by: JUAN R PEDROZA on 05/12/22 145 Ferrous Sulfate (Ferosul) 325 Mg (65 Mg Iron) Tablet, 325 MG PO 1200, (Reported) Entered as Reported by: JUAN R PEDROZA on 05/12/22 145 Fluticasone Propion/Salmeterol (Fluticasone-Salmeterol 250-50) 250 Mcg-50 Mcg/Dose Blst.w.dev, 1 PUFF INH BID, (Reported) Entered as Reported by: JUAN R PEDROZA on 05/12/22 145 Folic Acid (Folic Acid) 1 Mg Tablet, 1 MG PO DAILY, (Reported) Entered as Reported by: JUAN R PEDROZA on 11/15/21 1513 Gabapentin (Gabapentin) 100 Mg Capsule, 100 MG PO HS, (Reported) Entered as Reported by: EFE PATTERSON on 12/20/15 1348 Glucagon,Human Recombinant (Glucagon Emergency Kit) 1 Mg Soln, 1 MG IJ ONCE Prescribed by: JOSE BAKER on 05/13/22 1211 Hydralazine HCl (Hydralazine HCl) 25 Mg Tablet, 25 MG PO BID, (Reported) Entered as Reported by: JUAN R PEDROZA on 05/12/22 145 Insulin Aspart (Novolog) 100 Unit/Ml Cartridge, 8 UNITS SQ AC Prescribed by: JOSE BAKER on 05/13/22 1211 Insulin Determir (Levemir) 100 Unit/Ml Soln, 14 UNITS SQ BID, (Reported) Entered as Reported by: JUAN R PEDROZA on 11/02/21 1647 Ipratropium/Albuterol Sulfate (Iprat-Albut 0.5-3(2.5) mg/3 ml) 0.5 Mg-3 Mg (2.5 Mg Base)/3 Ml Ampul.neb, 3 ML IH Q6H PRN for SHORTNESS OF BREATH, (Reported) Entered as Reported by: JUAN R PEDROZA on 05/12/22 1452 Levothyroxine Sodium (Levothyroxine Sodium) 25 Mcg Tablet, 25 MCG PO DAILY, (Reported) Entered as Reported by: JUAN R PEDROZA on 11/02/21 1647 Levothyroxine Sodium (Levothyroxine Sodium) 200 Mcg Tablet, 200 MCG PO DAILY, (Reported) Entered as Reported by: JUAN R PEDROZA on 11/02/21 164 Metoprolol Succinate (Metoprolol Succinate) 50 Mg Tab.er.24h, 50 MG PO DAILY, (Reported) Entered as Reported by: JUAN R PEDROZA on 05/12/22 145 Montelukast Sodium (Montelukast Sodium) 10 Mg Tablet, 10 MG PO HS, (Reported) Entered as Reported by: ERROL DAVIS on 07/30/21 0331 Pantoprazole Sodium (Pantoprazole Sodium) 40 Mg Tablet.dr, 40 MG PO BID, (Reported) Entered as Reported by: JUAN R PEDROZA on 11/09/20 1153 Paroxetine HCl (Paroxetine HCl) 40 Mg Tablet, 40 MG PO DAILY, (Reported) Entered as Reported by: LUIS TOWNSEND on 11/30/15 1408 Tiotropium [place] (Spiriva) 18 Mcg Aerp, 1 PUFF INH DAILY, (Reported) Entered as Reported by: JUAN R PEDROZA on 05/12/22 145 Review of Systems Review of Systems Constitutional: see HPI Past Fcveqgh-Jdhjmy-Oejepo Hx Patient Social History Tobacco Use?: Yes Tobacco type used: Cigarettes Smoking Status: Current Everyday Smoker Substance use?: No Alcohol Use?: No Pt feels they are or have been: No Immunizations Up To Date Tetanus Booster (TDap): Unknown PED Vaccines UTD: No First/Initial COVID19 Vaccinat: jul 29 Second COVID19 Vaccination Rakesh: aug 29 Third COVID19 Vaccination Date: jul 29 Seasonal Allergies Seasonal Allergies: No Past Medical History Surgery/Hospitalization HX: HTN, CKD, DM, TARIK, CABG Surgeries: Yes Abdominal, Cardiac, CABG, Gallbladder, 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, Oophorectomy, Orthopedic, Thyroidectomy, Vascular Surgery Respiratory: Yes COPD Currently Using CPAP: No Currently Using BIPAP: No Cardiac: Yes (RIGHT ILIAC STENT; 4 VESSEL CABG AND RIGHT CAROTID ENDARTERECTOMY 12/2015) Atrial Fibrillation, Chronic Edema/Swelling, Coronary Artery Disease, High Cholesterol, Hypertension, Peripheral Vascular Neurological: Yes Headaches /Migraines, Neuropathy, Stroke Reproductive Disorders: No Female Reproductive Disorders: Denies 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, 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 Sexually Transmitted Disease: No HIV/AIDS: No Genitourinary: No Gastrointestinal: Yes Gastroesophageal Reflux, Chronic Constipation, Chronic Diarrhea, Hiatal Hernia Musculoskeletal: Yes (CHRONIC NECK PAIN--S/P CERVICAL FUSION) Degenerate Disk Disease, Chronic Back Pain Endocrine: Yes Diabetes, Insulin dep, Hypothyroidsim HEENT: No Loss of Vision: Denies Hearing Impairment: Denies Cancer: No Psychosocial: Yes Anxiety, Depression Integumentary: Yes (PREVIOUS ABCESSES) Blood Disorders: No Adverse Reaction/Blood Tranf: No Family Medical History Cancer G8 BROTHER, Onset:Unknown G8 BROTHER, Onset:Unknown Cancer of colon G8 BROTHER, Onset:Unknown Chest pain 19 MOTHER, Onset:Unknown Colon cancer Congestive heart failure 19 FATHER, Onset:60 years & older Family history: Alzheimer's disease 19 MOTHER, Onset:50's - 60 Family history: Arthritis 19 MOTHER, Onset:Unknown Family history: Asthma 19 FATHER, Onset:Unknown Family history: Cardiovascular disease 19 MOTHER, Onset:50's - 60 Family history: Coronary thrombosis 19 MOTHER, Onset:Unknown Family history: Diabetes mellitus 19 MOTHER, Onset:Unknown Family history: Hypertension 19 MOTHER, Onset:50's - 60 Family history: Thyroid disorder 19 MOTHER, Onset:50's - 60 Heart disease 19 MOTHER, Onset:50's - 60 Human immunodeficiency virus (HIV) seropositivity G8 BROTHER, Onset:40's - 50 Myocardial infarction 19 MOTHER, Onset:50's - 60 No Family History of: Abdominal aortic aneurysm Fidencio's disease Alcoholism Aphasia Cataract Congenital heart disease Cystic fibrosis Dementia Dysphagia Family history: Allergy Family history: Breast disease Family history: Gastrointestinal disease Family history: Glaucoma Family history: Osteoporosis Headache Hearing loss Hereditary disease History of - anemia History of - disorder History of - respiratory disease History of drug abuse Hypercholesterolemia Infertile Kidney disease Malignant neoplasm of lung Parkinson's disease Prostate cancer Psychotic disorder Seizure disorder Stroke Tuberculosis Visual impairment PSH: -RIGHT ILIAC ARTERY STENT -4 VESSEL CABG 12/2015 -RIGHT CAROTID ENDARTERECTOMY 12/2015 -TONSILLECTOMY -HYSTERECTOMY/BSO -LAPAROSCOPIC RENETTA FUNDOPLICATION -CERVICAL SPINE FUSION Physical Exam Vital Signs Vital Signs - First Documented 07/31/22 15:20 Temp 35.9 Pulse 62 Resp 18 B/P (MAP) 145/88 (107) Pulse Ox 100 Capillary Refill : Less Than 3 Seconds Height/Weight/BMI Height: 5'5.00" Weight: 125lbs. 0.0oz. [id number]; 20.00 BMI Method:Stated General Appearance: WD/WN, no apparent distress HEENT: PERRL/EOMI, normal ENT inspection, pharynx normal Neck: full range of motion, normal inspection Respiratory: chest non-tender, no respiratory distress, decreased breath sounds , other (increased effort ) Cardiovascular: regular rate, rhythm; No gallop/S3; other (BLE edema ) Gastrointestinal: normal bowel sounds, non tender, soft Back: normal inspection Neurologic/Psychiatric: no motor/sensory deficits, alert, normal mood/affect, oriented x 3 Skin: normal color, warm/dry Procedures/Interventions Patient Education: Explained Benefits, Explained Risks, Pt. Ack. Understanding Breath Sounds per Auscultation: Clear Heart Sounds per Auscultation: Irregular Airway Exam: Mouth opens >2 fingers, Neck Full Range of Motion, Visulation of Uvula Sedation Adminstration Time: 0955 Re-examination Time: 1015 Progress/Results/Core Measures Results/Orders Lab Results Laboratory Tests Test 07/31/22 15:40 07/31/22 15:49 07/31/22 17:56 Range/Units White Blood Count 13.8 H 4.3-11.0 10^3/uL Red Blood Count 3.43 L 3.80-5.11 10^6/uL Hemoglobin 9.7 L 11.5-16.0 g/dL Hematocrit 31 L 35-52 % Mean Corpuscular Volume 91 80-99 fL Mean Corpuscular Hemoglobin 28 25-34 pg Mean Corpuscular Hemoglobin Concent 31 L 32-36 g/dL Red Cell Distribution Width 15.6 H 10.0-14.5 % Platelet Count 372 130-400 10^3/uL Mean Platelet Volume 9.8 9.0-12.2 fL Immature Granulocyte % (Auto) 1 % Neutrophils (%) (Auto) 83 H 42-75 % Lymphocytes (%) (Auto) 8 L 12-44 % Monocytes (%) (Auto) 7 0-12 % Eosinophils (%) (Auto) 1 0-10 % Basophils (%) (Auto) 1 0-10 % Neutrophils # (Auto) 11.4 H 1.8-7.8 10^3/uL Lymphocytes # (Auto) 1.1 1.0-4.0 10^3/uL Monocytes # (Auto) 0.9 0.0-1.0 10^3/uL Eosinophils # (Auto) 0.2 0.0-0.3 10^3/uL Basophils # (Auto) 0.1 0.0-0.1 10^3/uL Immature Granulocyte # (Auto) 0.1 0.0-0.1 10^3/uL Sodium Level 134 L 135-145 MMOL/L Potassium Level 4.6 3.6-5.0 MMOL/L Chloride Level 102 98-107 MMOL/L Carbon Dioxide Level 18 L 21-32 MMOL/L Anion Gap 14 5-14 MMOL/L Blood Urea Nitrogen 50 H 7-18 MG/DL Creatinine 3.34 H 0.60-1.30 MG/DL Estimat Glomerular Filtration Rate 15 BUN/Creatinine Ratio 15 Glucose Level 405 *H 70-105 MG/DL Calcium Level 8.7 8.5-10.1 MG/DL Corrected Calcium 9.5 8.5-10.1 MG/DL Total Bilirubin 0.4 0.1-1.0 MG/DL Aspartate Amino Transf (AST/SGOT) 20 5-34 U/L Alanine Aminotransferase (ALT/SGPT) 28 0-55 U/L Alkaline Phosphatase 179 H 40-136 U/L Total Protein 6.4 6.4-8.2 GM/DL Albumin 3.0 L 3.2-4.5 GM/DL Urine Color YELLOW Urine Clarity CLEAR Urine pH 6.0 5-9 Urine Specific [place] 1.025 H 1.016-1.022 Urine Protein 3+ H NEGATIVE Urine Glucose (UA) 3+ H NEGATIVE Urine Ketones NEGATIVE NEGATIVE Urine Nitrite NEGATIVE NEGATIVE Urine Bilirubin NEGATIVE NEGATIVE Urine Urobilinogen 0.2 < = 1.0 MG/DL Urine Leukocyte Esterase NEGATIVE NEGATIVE Urine RBC (Auto) TRACE-I H NEGATIVE Urine RBC 2-5 H /HPF Urine WBC 5-10 H /HPF Urine Squamous Epithelial Cells 2-5 /HPF Urine Crystals NONE /LPF Urine Bacteria TRACE /HPF Urine Casts NONE /LPF Urine Mucus NEGATIVE /LPF Urine Culture Indicated YES Glucometer 338 H 70-110 MG/DL Micro Results Microbiology 07/31/22 Urine Culture - Final, Complete NO GROWTH My Orders Orders - LESTER MORGAN COMMUNICATIONS CLERK Cbc With Automated Diff (07/31/22 15:27) Comprehensive Metabolic Panel (07/31/22 15:27) Urinalysis (07/31/22 15:27) Urine Culture (07/31/22 15:49) Ct Abdomen/Pelvis Wo (07/31/22 16:57) Insulin (Regular) Human (Novolin R (Per (07/31/22 17:00) Ns Iv 1000 Ml (Sodium Chloride 0.9%) (07/31/22 17:00) Medications Given in ED Vital Signs/I&O 07/31/22 07/31/22 15:20 18:37 Temp 35.9 Pulse 62 66 Resp 18 18 B/P (MAP) 145/88 (107) 184/79 Pulse Ox 100 98 Blood Pressure Mean: 107 Progress Progress Note : Progress Note Labs reviewed, WBC-13.8, Hct-31, Hgb stable 9.7, CMP shows NA-134, K-4.6, BUN- 50, GAP-14, Creatinine-3.34, CO2-18, negative urine ketones, glucose 405, gbedside FOBT negative. Given Insulin 5 units IV, discontinued IVF due to concern for fluid overload. Discussed with Dr. Rivers, hospitalist platform operations director. Agrees with plan to consult with general surgery for close follow up. Will hold anticoagulant until follow up. Discussed with Dr. Haynes, patient to follow up in his office tomorrow at 3:30pm. Incidentally noted to have right pleural effusion and anasarca on CT abd/pelvis. She takes Lasix 80mg PRN edema, took one tablet today. Will have her continue for a couple days, to call PCP for close follow up. Diagnostic Imaging Diagonstic Imaging: CT Comments [place], [place] NAME: TIFFANY GRAMAJO [facility] REC#: [id number] PT STATUS: DEP ER : 1960 PHYSICIAN: LESTER MORGAN COMMUNICATIONS CLERK ADMIT DATE: 01/23/23/ER Signed Date of Exam:07/31/22 CT ABDOMEN/PELVIS WO INDICATION: Dark stools, diarrhea. TECHNIQUE: Multiple contiguous axial images were obtained through the abdomen and pelvis without the use of intravenous contrast. Auto Exposure Controls were utilized during the CT exam to meet ALARA standards for radiation dose reduction. Comparison made with 07/24/2021 There is a new right pleural effusion of moderate size. There is no left pleural fluid. Visualized portions of the lung bases show some dependent atelectatic changes. There is no free air. The liver shows no focal lesion. Patient has had prior cholecystectomy. Spleen, adrenals, and pancreas are normal. The kidneys bilaterally are unremarkable. There is no retroperitoneal mass. There is atherosclerotic plaquing of the aorta with bilateral iliac stents. There is no pelvic mass or lymphadenopathy. There is diffuse anasarca. IMPRESSION: Diffuse anasarca. No pelvic mass or free fluid. No abdominal mass. New moderate sized right pleural effusion. Dictated by: Dictated on workstation # [id number] Dict: 07/31/22 1805 Trans: 08/01/22 0758 [facility] [id number] Interpreted by: ZARA ABRAHAM MD Electronically signed by: ZARA ABRAHAM MD 08/01/22 0758 Reviewed: Reviewed by Me Departure Impression Primary Impression: Black stool Additional Impression: Anemia Disposition: 01 HOME, SELF-CARE Condition: Stable Departure-Patient Inst. Decision time for Depature: 18:09 Referrals: JUAN R MAHMOOD DO (PCP/Family) Primary Care Physician Patient Instructions: Bloody Stools Add. Discharge Instructions: Plan: 1. Follow-up with Dr. Haynes in his office tomorrow at 3:30 PM. Let him know you were also found to have a right pleural effusion (fluid in the lung). This is most likely related to your congestive heart failure. I recommend you take your Lasix daily for the next few days. Have close follow up with Dr. Jeffries. 2. Go ahead and continue to hold your Eliquis at this time until follow-up with Dr. Haynes, will wait for definitive plan before restarting. 3. Limit sodium intake and drink water throughout day to help with your renal function. This may cause a transient decrease in your renal function. 4. Return to the ER if you have increased shortness of breath, fever, cough, or any other new or concerning symptom. All discharge instructions reviewed with patient and/or family. Voiced understanding. Copy Copies To 1: NAKUL HAYNES MD Copies To 2: [facility]/LESTER CARBALLO APRN Jul 31, 2022 16:09
[2022-07-31 16:11] LABS: BILIRUBIN,TOTAL 0.4 MG/DL (0.1-1.0)
[2022-07-31 16:12] LABS: CREATININE SERUM 3.34 MG/DL (0.60-1.30)
[2022-07-31 16:16] LABS: BACTERIA,URINE TRACE /HPF
[2022-07-31] MEDS ORDERED: inSUlin (REGULAR) HUMAN 1 UNIT/0.01 ML (CHARGE PER UNIT) IV ONE (17:00)
[2022-07-31] MEDS ORDERED: NS IV 1000 ML 1,000 ML IV SCH (17:00)
--- NOTE | 2022-07-31 18:12 | Diagnostic Imaging Report ---
INDICATION: Dark stools, diarrhea. TECHNIQUE: Multiple contiguous axial images were obtained through the abdomen and pelvis without the use of intravenous contrast. Auto Exposure Controls were utilized during the CT exam to meet ALARA standards for radiation dose reduction. Comparison made with 07/24/2021 There is a new right pleural effusion of moderate size. There is no left pleural fluid. Visualized portions of the lung bases show some dependent atelectatic changes. There is no free air. The liver shows no focal lesion. Patient has had prior cholecystectomy. Spleen, adrenals, and pancreas are normal. The kidneys bilaterally are unremarkable. There is no retroperitoneal mass. There is atherosclerotic plaquing of the aorta with bilateral iliac stents. There is no pelvic mass or lymphadenopathy. There is diffuse anasarca. IMPRESSION: Diffuse anasarca. No pelvic mass or free fluid. No abdominal mass. New moderate sized right pleural effusion. Dictated by: Dictated on workstation # [id number]
[2022-07-31 18:37] VITALS: BP 184/79
== END 2022-07-31 18:37 | disposition home or self-care (01) ==
LOC: EDUNIT# 15:05 → ER 15:06
DX: R19.5 Other fecal abnormalities (principal); D64.9 Anemia, unspecified; I48.91 Unspecified atrial fibrillation; I13.0 Hypertensive heart and chronic kidney disease with heart failure and stage 1 through stage 4 chronic kidney disease, or unspecified chronic kidney disease; E11.22 Type 2 diabetes mellitus with diabetic chronic kidney disease; N18.9 Chronic kidney disease, unspecified; I50.9 Heart failure, unspecified; Z79.4 Long term (current) use of insulin; F17.210 Nicotine dependence, cigarettes, uncomplicated; Z79.01 Long term (current) use of anticoagulants
CPT/HCPCS: 36415; 74176; 80053; 81000; 82947; 85025; 87088

== ENCOUNTER 2022-08-07 13:38 | Outpatient (CLI) | payer OTHER ==
[~2022-08-07] VITALS: Ht 165.1 cm; Wt 55.2 kg
[2022-08-07] MEDS ORDERED: PROM50TA3 PO (14:02)
== END 2022-08-07 14:08 | disposition home or self-care (01) ==
LOC: PREOP 13:38
PROVIDERS: ATTEND Surgery
DX: Z01.818 Encounter for other preprocedural examination (principal)

== ENCOUNTER 2022-08-09 10:52 | Emergency (ER) | payer OTHER ==
[~2022-08-09] VITALS: Ht 165 cm; Wt 56.0 kg
[~2022-08-09 10:52] MED LIST changes: +PROM50TA3 PO
--- NOTE | 2022-08-09 11:16 | ED General ---
General Chief Complaint: Glucose Problems Stated Complaint: HIGH BLOOD SUGAR Nursing Triage Note: PT TO ED FROM ENDO, PT WAS SCHEDULED FOR ENDO, COLONOSCOPY AND THORACENTIASIS. PT HAS ELEVATED BS AND FLUID GAIN, DESPITE BOWEL PREP. Source of Information: Patient, Family Exam Limitations: No Limitations History of Present Illness Date Seen by Provider: Aug 09, 2022 Time Seen by Provider: 11:05 Initial Comments Patient is a 61-year-old female who presents to the emergency department for further evaluation of elevated blood sugar and weight gain over the last 2 days. Patient was seen in endoscopy just prior to arrival to the ER she was scheduled for an EGD, colonoscopy, and thoracentesis. Once family relayed that patient's blood sugar has been running high and that she had gained the weight over short period of time, patient was transferred to the ER for further evaluation. Patient states she has been feeling generally unwell for the last several days. The EGD and colonoscopy were for evaluation of dark stools over the last several weeks. Patient has known right pleural effusion as evidenced by imaging on 07/31. Patient states she has been taking medications as prescribed. Patient did complete the colonoscopy prep as instructed. Blood sugar at home was reading high on the glucometer. Allergies and Home Medications Allergies Coded Allergies: ciprofloxacin (Verified Allergy, Mild, redness and itching , 12/04/18) redness and itching at iv site Patient Home Medication List Home Medication List Reviewed: Yes Albuterol Sulfate (Ventolin Hfa) 1 Puff Puff, 2 PUFF IH Q4H PRN for SHORTNESS OF BREATH, (Reported) Entered as Reported by: JUAN R PEDROZA on 11/02/21 1647 Apixaban (Eliquis) 2.5 Mg Tablet, 2.5 MG PO BID, (Reported) Entered as Reported by: JUAN R PEDROZA on 05/12/22 1452 Atorvastatin Calcium (Atorvastatin Calcium) 40 Mg Tablet, 40 MG PO HS, (Reported) Entered as Reported by: JUANR PEDROZA on 11/09/20 1153 Buspirone HCl (Buspirone HCl) 15 Mg Tablet, 15 MG PO BID, (Reported) Entered as Reported by: JUAN R PEDROZA on 05/12/22 1452 Cetirizine HCl (Cetirizine HCl) 10 Mg Tablet, 10 MG PO DAILY, (Reported) Entered as Reported by: JUAN R PEDROZA on 05/12/22 145 Diltiazem HCl (Diltiazem 24Hr ER) 300 Mg Cap.er.24h, 300 MG PO DAILY, (Reported) Entered as Reported by: JUAN R PEDROZA on 05/12/22 145 Donepezil HCl (Donepezil HCl) 5 Mg Tablet, 5 MG PO HS, (Reported) Entered as Reported by: JUAN R PEDROZA on 05/12/22 145 Ergocalciferol (Vitamin D2) (Vitamin D2) 1,250 Mcg (93483 Unit) Capsule, 1,250 MCG PO FRI, (Reported) Entered as Reported by: JUAN R PEDROZA on 05/12/22 145 Ferrous Sulfate (Ferosul) 325 Mg (65 Mg Iron) Tablet, 325 MG PO 1200, (Reported) Entered as Reported by: JUAN R PEDROZA on 05/12/22 145 Fluticasone Propion/Salmeterol (Fluticasone-Salmeterol 250-50) 250 Mcg-50 Mcg/Dose Blst.w.dev, 1 PUFF INH BID, (Reported) Entered as Reported by: JUAN R PEDROZA on 05/12/22 145 Folic Acid (Folic Acid) 1 Mg Tablet, 1 MG PO DAILY, (Reported) Entered as Reported by: JUAN R PEDROZA on 11/15/21 1513 Gabapentin (Gabapentin) 100 Mg Capsule, 100 MG PO HS, (Reported) Entered as Reported by: EFE PATTERSON on 12/20/15 1348 Hydralazine HCl (Hydralazine HCl) 25 Mg Tablet, 25 MG PO BID, (Reported) Entered as Reported by: JUAN R PEDROZA on 05/12/22 1452 Insulin Aspart (Novolog) 100 Unit/Ml Cartridge, 8 UNITS SQ AC Prescribed by: JOSE BAKER on 05/13/22 1211 Insulin Determir (Levemir) 100 Unit/Ml Soln, 14 UNITS SQ BID, (Reported) Entered as Reported by: JUAN R PEDROZA on 11/02/21 1647 Ipratropium/Albuterol Sulfate (Iprat-Albut 0.5-3(2.5) mg/3 ml) 0.5 Mg-3 Mg (2.5 Mg Base)/3 Ml Ampul.neb, 3 ML IH Q6H PRN for SHORTNESS OF BREATH, (Reported) Entered as Reported by: JUAN R PEDROZA on 05/12/22 1452 Levothyroxine Sodium (Levothyroxine Sodium) 25 Mcg Tablet, 25 MCG PO DAILY, (Reported) Entered as Reported by: JUAN R PEDROZA on 11/02/21 1647 Levothyroxine Sodium (Levothyroxine Sodium) 200 Mcg Tablet, 200 MCG PO DAILY, (Reported) Entered as Reported by: JUAN R PEDROZA on 11/02/21 164 Metoprolol Succinate (Metoprolol Succinate) 50 Mg Tab.er.24h, 50 MG PO DAILY, (Reported) Entered as Reported by: JUAN R PEDROZA on 05/12/22 145 Montelukast Sodium (Montelukast Sodium) 10 Mg Tablet, 10 MG PO HS, (Reported) Entered as Reported by: ERROL DAVIS on 07/30/21 033 Pantoprazole Sodium (Pantoprazole Sodium) 40 Mg Tablet.dr, 40 MG PO BID, (Reported) Entered as Reported by: JUAN R PEDROZA on 11/09/20 1153 Paroxetine HCl (Paroxetine HCl) 40 Mg Tablet, 40 MG PO DAILY, (Reported) Entered as Reported by: LUIS TOWNSEND on 11/30/15 1408 Promethazine HCl (Promethazine HCl) 50 Mg Tablet, 25 MG PO PRN, (Reported) Entered as Reported by: MARY LI on 08/07/22 1402 Tiotropium Stafford (Spiriva) 18 Mcg Aerp, 1 PUFF INH DAILY, (Reported) Entered as Reported by: JUAN R PEDROZA on 05/12/22 145 Discontinued Medications Calcitriol (Calcitriol) 0.25 Mcg Capsule, 0.25 MCG PO 1200, (Reported) Discontinued Reason: No Longer Taking Entered as Reported by: ERROL DAVIS on 07/30/21 0331 Glucagon,Human Recombinant (Glucagon Emergency Kit) 1 Mg Soln, 1 MG IJ ONCE Discontinued Reason: No Longer Taking Prescribed by: JOSE BAKER on 05/13/22 1211 Review of Systems Review of Systems Constitutional: see HPI, weakness EENTM: no symptoms reported Respiratory: see HPI, short of breath Cardiovascular: no symptoms reported Gastrointestinal: see HPI, melena Genitourinary: no symptoms reported Musculoskeletal: no symptoms reported Skin: no symptoms reported Psychiatric/Neurological: No Symptoms Reported Hematologic/Lymphatic: No Symptoms Reported Immunological/Allergic: no symptoms reported Past Diyqipj-Wiqmvj-Ejawer Hx Patient Social History Tobacco Use?: Yes Tobacco type used: Cigarettes Substance use?: No Alcohol Use?: No Pt feels they are or have been: No Immunizations Up To Date Tetanus Booster (TDap): Unknown PED Vaccines UTD: No Influenza Vaccine Up-to-Date: No; Not Current First/Initial COVID19 Vaccinat: jul 29 Second COVID19 Vaccination Rakesh: aug 29 Third COVID19 Vaccination Date: NO Seasonal Allergies Seasonal Allergies: No Past Medical History Surgery/Hospitalization HX: HTN, CKD, DM, TARIK, CABG Surgeries: Yes Abdominal, Cardiac, CABG, Gallbladder, 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, Oophorectomy, Orthopedic, Thyroidectomy, Vascular Surgery Respiratory: Yes COPD Currently Using CPAP: No Currently Using BIPAP: No Cardiac: Yes (RIGHT ILIAC STENT; 4 VESSEL CABG AND RIGHT CAROTID ENDARTERECTOMY 12/2015) Atrial Fibrillation, Chronic Edema/Swelling, Coronary Artery Disease, High Cholesterol, Hypertension, Peripheral Vascular Neurological: Yes Headaches /Migraines, Neuropathy, Stroke Reproductive Disorders: No Female Reproductive Disorders: Denies [employer] 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, Menopausal Sexually Transmitted Disease: No HIV/AIDS: No Genitourinary: No Gastrointestinal: Yes Gastroesophageal Reflux, Chronic Constipation, Chronic Diarrhea, Hiatal Hernia Musculoskeletal: Yes (CHRONIC NECK PAIN--S/P CERVICAL FUSION) Degenerate Disk Disease, Chronic Back Pain Endocrine: Yes Diabetes, Insulin dep, Hypothyroidsim HEENT: No Loss of Vision: Denies Hearing Impairment: Denies Cancer: No Psychosocial: Yes Anxiety, Depression Integumentary: Yes (PREVIOUS ABCESSES) Blood Disorders: No Adverse Reaction/Blood Tranf: No Family Medical History Cancer G8 BROTHER, Onset:Unknown G8 BROTHER, Onset:Unknown Cancer of colon G8 BROTHER, Onset:Unknown Chest pain 19 MOTHER, Onset:Unknown Colon cancer Congestive heart failure 19 FATHER, Onset:60 years & older Family history: Alzheimer's disease 19 MOTHER, Onset:50's - 60 Family history: Arthritis 19 MOTHER, Onset:Unknown Family history: Asthma 19 FATHER, Onset:Unknown Family history: Cardiovascular disease 19 MOTHER, Onset:50's - 60 Family history: Coronary thrombosis 19 MOTHER, Onset:Unknown Family history: Diabetes mellitus 19 MOTHER, Onset:Unknown Family history: Hypertension 19 MOTHER, Onset:50's - 60 Family history: Thyroid disorder 19 MOTHER, Onset:50's - 60 Heart disease 19 MOTHER, Onset:50's - 60 Human immunodeficiency virus (HIV) seropositivity G8 BROTHER, Onset:40's - 50 Myocardial infarction 19 MOTHER, Onset:50's - 60 No Family History of: Abdominal aortic aneurysm Fidencio's disease Alcoholism Aphasia Cataract Congenital heart disease Cystic fibrosis Dementia Dysphagia Family history: Allergy Family history: Breast disease Family history: Gastrointestinal disease Family history: Glaucoma Family history: Osteoporosis Headache Hearing loss Hereditary disease History of - anemia History of - disorder History of - respiratory disease History of drug abuse Hypercholesterolemia Infertile Kidney disease Malignant neoplasm of lung Parkinson's disease Prostate cancer Psychotic disorder Seizure disorder Stroke Tuberculosis Visual impairment PSH: -RIGHT ILIAC ARTERY STENT -4 VESSEL CABG 12/2015 -RIGHT CAROTID ENDARTERECTOMY 12/2015 -TONSILLECTOMY -HYSTERECTOMY/BSO -LAPAROSCOPIC RENETTA FUNDOPLICATION -CERVICAL SPINE FUSION Physical Exam Vital Signs Vital Signs - First Documented 08/09/22 11:00 Temp 36.6 Pulse 70 Resp 20 B/P (MAP) 156/53 (87) Pulse Ox 97 Capillary Refill : Less Than 3 Seconds Height, Weight, BMI Height: 5'5.00" Weight: 125lbs. 0.0oz. 56.839642by; 20.00 BMI Method:Stated General Appearance: No Apparent Distress, WD/WN HEENT: PERRL/EOMI, TMs Normal, Normal ENT Inspection, Pharynx Normal Neck: Full Range of Motion, Normal Inspection, Non Tender, Supple Respiratory: Chest Non Tender, Lungs Clear, Normal Breath Sounds, No Accessory Muscle Use, No Respiratory Distress Cardiovascular: Regular Rate, Rhythm, Normal Peripheral Pulses Gastrointestinal: Non Tender, Soft Extremity: Normal Capillary Refill, Normal Inspection, Normal Range of Motion, Non Tender Neurologic/Psychiatric: Alert, Oriented x3, No Motor/Sensory Deficits, Normal Mood/Affect Skin: Normal Color, Warm/Dry Procedures/Interventions Patient Education: Explained Benefits, Explained Risks, Pt. Ack. Understanding Breath Sounds per Auscultation: Clear Heart Sounds per Auscultation: Irregular Airway Exam: Mouth opens >2 fingers, Neck Full Range of Motion, Visulation of Uvula Sedation Adminstration Time: 0955 Re-examination Time: 1015 Progress/Results/Core Measures Suspected Sepsis SIRS Temperature: Pulse: 70 Respiratory Rate: 20 Laboratory Tests 08/09/22 11:15: White Blood Count 15.8H Blood Pressure 156 /53 Mean: 87 Laboratory Tests 08/09/22 11:15: Creatinine 3.36H, Platelet Count 486H, Total Bilirubin 0.5 Results/Orders Lab Results Laboratory Tests Test 08/09/22 11:15 08/09/22 13:14 Range/Units White Blood Count 15.8 H 4.3-11.0 10^3/uL Red Blood Count 3.26 L 3.80-5.11 10^6/uL Hemoglobin 9.2 L 11.5-16.0 g/dL Hematocrit 30 L 35-52 % Mean Corpuscular Volume 93 80-99 fL Mean Corpuscular Hemoglobin 28 25-34 pg Mean Corpuscular Hemoglobin Concent 30 L 32-36 g/dL Red Cell Distribution Width 15.7 H 10.0-14.5 % Platelet Count 486 H 130-400 10^3/uL Mean Platelet Volume 10.0 9.0-12.2 fL Immature Granulocyte % (Auto) 1 % Neutrophils (%) (Auto) 92 H 42-75 % Lymphocytes (%) (Auto) 4 L 12-44 % Monocytes (%) (Auto) 3 0-12 % Eosinophils (%) (Auto) 0 0-10 % Basophils (%) (Auto) 1 0-10 % Neutrophils # (Auto) 14.4 H 1.8-7.8 10^3/uL Lymphocytes # (Auto) 0.6 L 1.0-4.0 10^3/uL Monocytes # (Auto) 0.5 0.0-1.0 10^3/uL Eosinophils # (Auto) 0.0 0.0-0.3 10^3/uL Basophils # (Auto) 0.1 0.0-0.1 10^3/uL Immature Granulocyte # (Auto) 0.2 H 0.0-0.1 10^3/uL Neutrophils % (Manual) 92 % Lymphocytes % (Manual) 1 % Monocytes % (Manual) 6 % Eosinophils % (Manual) 0 % Basophils % (Manual) 0 % Band Neutrophils 1 % Anisocytosis SLIGHT Venous Blood pH 7.28 L 7.31-7.41 Venous Blood Partial Pressure CO2 31 L 40-52 MMHG Venous Blood HCO3 14 L 22-28 MMOL/L Sodium Level 131 L 135-145 MMOL/L Potassium Level 5.3 H 3.6-5.0 MMOL/L Chloride Level 97 L 98-107 MMOL/L Carbon Dioxide Level 13 L 21-32 MMOL/L Anion Gap 21 H 5-14 MMOL/L Blood Urea Nitrogen 56 H 7-18 MG/DL Creatinine 3.36 H 0.60-1.30 MG/DL Estimat Glomerular Filtration Rate 15 BUN/Creatinine Ratio 17 Glucose Level 797 *H 70-105 MG/DL Calcium Level 8.3 L 8.5-10.1 MG/DL Corrected Calcium 9.1 8.5-10.1 MG/DL Total Bilirubin 0.5 0.1-1.0 MG/DL Aspartate Amino Transf (AST/SGOT) 15 5-34 U/L Alanine Aminotransferase (ALT/SGPT) 37 0-55 U/L Alkaline Phosphatase 223 H 40-136 U/L B-Type Natriuretic Peptide 3616.0 H <100.0 PG/ML Total Protein 6.7 6.4-8.2 GM/DL Albumin 3.0 L 3.2-4.5 GM/DL Beta-Hydroxybutyrate (Chem panel) 6.58 H 0.00-0.27 MMOL/L My Orders Orders - CHRISTAL OJHN APRN Cbc With Automated Diff (08/09/22 11:11) Comprehensive Metabolic Panel (08/09/22 11:11) Urinalysis (08/09/22 11:11) Implanted Port: Access (08/09/22 11:11) Beta Hydroxybutyrate (08/09/22 11:11) Venous Blood Gas (08/09/22 11:11) Bnp Bonnie (08/09/22 11:11) Manual Differential (08/09/22 11:15) Insulin Regular Drip (Myxredlin 100 Unit (08/09/22 13:00) Ns Iv 1000 Ml (Sodium Chloride 0.9%) (08/09/22 13:00) Vital Signs/I&O 08/09/22 11:00 Temp 36.6 Pulse 70 Resp 20 B/P (MAP) 156/53 (87) Pulse Ox 97 Capillary Refill : Less Than 3 Seconds Blood Pressure Mean: 87 Progress Note : Progress Note Patient is nontoxic and well-hydrated on exam. She is ill appearing and generally weak. Vital signs reassuring. No Kussmaul respirations appreciated. Abdominal exam is reassuring without focal provocation of pain or rigidity/distention. Patient able to answer all questions appropriately. High concern for DKA. Orders placed for CBC, CMP, urinalysis, beta hydroxybutyrate, port access, VBG. CBC notable for leukocytosis which appears to be chronic based on review of EMR and recent lab findings. Patient is mildly anemic with hemoglobin lower today than it was in the recent past. CMP notable for pseudohyponatremia. Once corrected for hyperglycemia patient is slightly hypernatremic. Patient is also slightly hyperkalemic. This will correct as patient is given insulin. Patient also with elevated BUN and creatinine. This appears to be trending upward since late last year. Today's creatinine is higher than any recent prior finding. BNP is also markedly elevated and also trending up from 4 months ago. Due to patient being fluid overloaded, normal aggressive fluid hydration as is common in DKA patients was not pursued. Hydroxybutyrate is elevated. VBG notable for metabolic acidosis. Patient meets criteria for diabetic ketoacidosis. I spoke with Dr. Wadsworth with hospital medicine who states patient needs to be transferred to a facility with nephrology coverage. I spoke to Dr. Villatoro at [facility] who kindly agreed to accept the patient in transfer. He recommended initiating insulin drip prior to transfer. Patient and family were updated on plan of care and understanding was verbalized. Departure Impression Primary Impression: DKA (diabetic ketoacidosis) Qualified Codes: E13.10 - Other specified diabetes mellitus with ketoacidosis without coma Additional Impression: Acute kidney injury superimposed on chronic kidney disease Disposition: XF SHT-TRM HOSP Condition: Stable Transfer Transfer Reason: Exceeds level of care Time Spoke to Accepting Phy: 12:42 Transfer Progress Notes recs for starting insulin gtt and low rate of carrier fluids Transfer Time: 12:42 Transfer Facility: [facility] Method of Transfer: EMS Departure-Patient Inst. Referrals: JUAN R MAHMOOD DO (PCP/Family) Primary Care Physician CHRISTAL JOHN APRN Aug 09, 2022 11:16
[2022-08-09 11:24] LABS: BASOPHILS # (AUTO) 0.1 10^3/uL (0.0-0.1); BASOPHILS % (AUTO) 1 % (0-10); EOSINOPHILS % (AUTO) 0 % (0-10); HEMATOCRIT 30 % (35-52); HEMOGLOBIN 9.2 g/dL (11.5-16.0); LYMPHOCYTES # (AUTO) 0.6 10^3/uL (1.0-4.0); LYMPHOCYTES % (AUTO) 4 % (12-44); MEAN CORPUSCULAR HEMOGLOBIN 28 pg (25-34); MEAN CORPUSCULAR HGB CONC 30 g/dL (32-36); MEAN CORPUSCULAR VOLUME 93 fL (80-99); MONOCYTES # (AUTO) 0.5 10^3/uL (0.0-1.0); MONOCYTES % (AUTO) 3 % (0-12); NEUTROPHILS # (AUTO) 14.4 10^3/uL (1.8-7.8); NEUTROPHILS % (AUTO) 92 % (42-75); PLATELET COUNT 486 10^3/uL (130-400); WHITE BLOOD COUNT 15.8 10^3/uL (4.3-11.0)
[2022-08-09 11:40] LABS: POTASSIUM 5.3 MMOL/L (3.6-5.0)
[2022-08-09 11:41] LABS: CALCIUM 8.3 MG/DL (8.5-10.1)
[2022-08-09 11:42] LABS: TOTAL PROTEIN 6.7 GM/DL (6.4-8.2)
[2022-08-09 11:44] LABS: BILIRUBIN,TOTAL 0.5 MG/DL (0.1-1.0)
[2022-08-09 11:46] LABS: CREATININE SERUM 3.36 MG/DL (0.60-1.30)
[2022-08-09 11:49] LABS: ANISOCYTOSIS SLIGHT; BAND NEUTROPHILS 1 %; BASOPHILS % (MANUAL) 0 %; EOSINOPHILS % (MANUAL) 0 %; LYMPHOCYTES % (MANUAL) 1 %; MONOCYTES % (MANUAL) 6 %; NEUTROPHILS % (MANUAL) 92 %
[2022-08-09] MEDS ORDERED: NS IV 1000 ML 1,000 ML IV SCH (13:00)
[2022-08-09 13:24] LABS: BILIRUBIN,URINE NEGATIVE (NEGATIVE); CLARITY,URINE CLEAR; COLOR,URINE DARK YELLOW; GLUCOSE, URINE (UA) 3+ (NEGATIVE); KETONES,URINE 1+ (NEGATIVE); LEUKOCYTE ESTERASE ,URINE NEGATIVE (NEGATIVE); NITRITE,URINE NEGATIVE (NEGATIVE); PH,URINE 5.5 (5-9); PROTEIN,URINE 3+ (NEGATIVE)
[2022-08-09 13:42] LABS: RBC,URINE 0-2 /HPF
[2022-08-09 13:43] LABS: BACTERIA,URINE FEW /HPF
[2022-08-09 14:31] VITALS: BP 162/70
== END 2022-08-09 15:14 | disposition short-term general hospital (02) ==
LOC: EDUNIT# 10:52 → ER 10:54
DX: E11.10 Type 2 diabetes mellitus with ketoacidosis without coma (principal); N17.9 Acute kidney failure, unspecified; I12.9 Hypertensive chronic kidney disease with stage 1 through stage 4 chronic kidney disease, or unspecified chronic kidney disease; E11.22 Type 2 diabetes mellitus with diabetic chronic kidney disease; N18.9 Chronic kidney disease, unspecified; D63.1 Anemia in chronic kidney disease; E87.5 Hyperkalemia; E87.1 Hypo-osmolality and hyponatremia; F17.210 Nicotine dependence, cigarettes, uncomplicated; Z79.4 Long term (current) use of insulin
CPT/HCPCS: 36415; 80053; 81000; 82010; 82805; 82947; 83880; 85007; 85027

== ENCOUNTER 2022-08-22 15:19 | Outpatient (CLI) | payer OTHER ==
[2022-08-22 15:10] VITALS: BP 164/77
[2022-08-22 16:05] LABS: BASOPHILS # (AUTO) 0.1 10^3/uL (0.0-0.1); BASOPHILS % (AUTO) 1 % (0-10); EOSINOPHILS # (AUTO) 0.2 10^3/uL (0.0-0.3); EOSINOPHILS % (AUTO) 2 % (0-10); HEMATOCRIT 33 % (35-52); HEMOGLOBIN 10.3 g/dL (11.5-16.0); LYMPHOCYTES # (AUTO) 1.3 X 10^3 (1.0-4.0); LYMPHOCYTES % (AUTO) 11 % (12-44); MEAN CORPUSCULAR HEMOGLOBIN 28 pg (25-34); MEAN CORPUSCULAR HGB CONC 31 g/dL (32-36); MEAN CORPUSCULAR VOLUME 90 fL (80-99); MEAN PLATELET VOLUME 9.4 fL (9.0-12.2); MONOCYTES # (AUTO) 0.9 X 10^3 (0.0-1.0); MONOCYTES % (AUTO) 7 % (0-12); NEUTROPHILS # (AUTO) 9.7 X 10^3 (1.8-7.8); NEUTROPHILS % (AUTO) 80 % (42-75); PLATELET COUNT 444 10^3/uL (130-400); WHITE BLOOD COUNT 12.2 10^3/uL (4.3-11.0)
[2022-08-22 16:12] LABS: ALBUMIN 2.7 GM/DL (3.2-4.5)
[2022-08-22 16:13] LABS: POTASSIUM 4.3 MMOL/L (3.6-5.0)
[2022-08-22 16:14] LABS: CALCIUM 9.1 MG/DL (8.5-10.1)
[2022-08-22 16:15] LABS: TOTAL PROTEIN 6.1 GM/DL (6.4-8.2)
[2022-08-22 16:17] LABS: BILIRUBIN,TOTAL 0.3 MG/DL (0.1-1.0)
[2022-08-22 16:19] LABS: CREATININE SERUM 3.07 MG/DL (0.60-1.30)
[2022-08-22 16:43] LABS: TSH (THYROID ANALYZER) 15.13 UIU/ML (0.35-4.94)
[2022-08-22 17:25] LABS: FREE T4 (FREE THYROXINE) 1.34 NG/DL (0.70-1.48)
== END 2022-08-22 15:50 | disposition home or self-care (01) ==
LOC: SDC 15:19
PROVIDERS: ATTEND Pediatrics
DX: E10.22 Type 1 diabetes mellitus with diabetic chronic kidney disease (principal)
CPT/HCPCS: 36415; 36591; 80053; 82728; 83540; 83550; 84439; 84443; 85025